=== PATIENT | female | born 1950 | race Caucasian/White ===

== ENCOUNTER → 2017-11-08 08:28 | Outpatient (CLI) | payer MEDICARE, OTHER, SELFPAY ==
[2017-11-08 10:05] LABS: Hematocrit 40.7 % (37-47); Hemoglobin 13.4 g/dl (12.0-15.0); Mean Corp Hgb Conc 32.9 g/gl (32-36); Mean Corpuscular Hgb 30.9 pg (27.0-32.0); Mean Platelet Vol. 9.7 fl (6.2-12.0); Platelet Count 269 K/mm3 (150-450); RBC Distribution Width CV 13.7 % (11.6-14.6); RBC Distribution Width SD 44.9 fl (35.1-43.9); Red Blood Count 4.33 M/mm3 (4.2-5.4); White Blood Count 7.3 K/mm3 (4.4-11.0)
[2017-11-08 10:27] LABS: Microalbumin,Random Urine 10.5 mg/L (NO RANGE EST.); Microalbumin:Creatinine Ratio 6.3 mg/g CRE (<30 mg/g CRE)
[2017-11-08 10:28] LABS: Scan Indicated on CBC? Y/N NO
[2017-11-08 10:34] LABS: ALB/GLOB Ratio 1.3 RATIO (0.9-2.4); AST(SGOT) 27 U/L (15-37); Alanine Aminotransfer ALT/SGPT 40 U/L (13-56); Albumin, Serum 3.9 g/dL (3.2-5.0); Alkaline Phosphatase 82 U/L (45-117); Anion Gap 8 (5-15); BUN 29 mg/dL (7-18); BUN/Creat Ratio 15.8 RATIO (10-20); Calcium,Total 9.3 mg/dL (8.5-10.1); Chloride 99 mmol/L (98-107); Cholesterol 206 mg/dL (200); Creatinine, Serum 1.84 mg/dL (0.55-1.02); EST Glomerular Filtration Rate 29 mL/min (>60); Est Glom Filt Rate - Afr Amer 35 mL/min (>60); Glucose 165 mg/dL (74-106); High Density Lipoprotein 44 mg/dL; Magnesium 2.3 mg/dL (1.6-2.6); Phosphorus 4.4 mg/dL (2.5-4.9); Protein, Total 6.9 g/dL (6.4-8.2); Sodium Level 138 mmol/L (136-145); Triglycerides 267 mg/dL; Uric Acid 7.2 mg/dL (2.6-6.0); Very Low Density Lipoprotein 53 mg/dL (5-40)
[2017-11-08 10:36] LABS: Hemoglobin A1c 7.1 % (4.2-6.3)
[2017-11-09 10:34] LABS: PTHIN 58.1 pg/mL (18.4-80.1)
[2017-11-09 10:39] LABS: Vitamin D,25 Hydroxy 39.2 ng/mL (19.95-100.01)
== END ==
PROVIDERS: Family Provider Family Medicine; PCP Family Medicine; Visit Provider Internal Medicine Nephrology
DX: E11.22 Type 2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with diabetic chronic kidney disease (principal); N18.3 Chronic kidney disease, stage 3 (moderate); E55.9 Vitamin D deficiency, unspecified; M10.9 Gout, unspecified; Z13.0 Encounter for screening for diseases of the blood and blood-forming organs and certain disorders involving the immune mechanism
CPT/HCPCS: 36415; 80053; 80061; 82043; 82306; 82570; 83036; 83735; 83970; 84100; 84550; 85027

== ENCOUNTER → 2018-01-19 07:02 | Outpatient (CLI) | payer MEDICARE, OTHER, SELFPAY ==
--- NOTE | 2018-01-19 17:07 | STRESSREP ---
Stress Test Report Date: 01/19/2018 Procedure: Pharmacologic stress nuclear imaging study Indications: Shortness of breath/dyspnea on exertion Consent: Per the patient Procedure: The patient underwent pharmacologic (Regadenoson) evaluation with a peak heart rate of 91 beats per minute (59 predicted maximal heart rate) and a peak blood pressure of 130/78 mmHg. The baseline ECG demonstrated normal sinus rhythm. The peak pharmacologic ECG demonstrated no obvious ECG changes. There were no cardiac dysrhythmias pretest, during pharmacologic infusion, or recovery. There was no complaint of chest discomfort during pharmacologic infusion or recovery. The examination was discontinued secondary to completion of protocol. Impression: 1. Pharmacologic (Regadenoson) evaluation 2. Peak pharmacologic ECG with no obvious ECG changes. 3. There were no cardiac dysrhythmias pretest, during pharmacologic infusion, or recovery 4. Nuclear images pending Myocardial perfusion imaging study: Technique: The patient was injected with 14.8 millicuries of technetium 99m Cardiolite and subsequently rest SPECT Cardiolite nuclear imaging was obtained in the horizontal long, vertical long, and short axis views. The patient underwent pharmacologic (Regadenoson) evaluation with a peak heart rate of 91 beats per minute (59 % percent predicted maximal heart rate) and a peak blood pressure of 130/78 mmHg. The patient was injected with 44.3 millicuries of technetium 99m Cardiolite and subsequently stress SPECT Cardiolite nuclear imaging was obtained in the horizontal long, vertical long, and short axis views. A gated Cardiolite study at peak stress was obtained. Interpretation: Rest and stress SPECT Cardiolite nuclear imaging status post realignment, normalization, and attenuation correction demonstrate an area of diminished myocardial perfusion/tracer uptake in portions of the mid anterior, basal to mid lateral, and lateral apical segments which appears to be somewhat more prominent following stress as opposed to rest. There is end systolic thickening and brightening. The gated Cardiolite study demonstrates myocardial thickening and inward wall motion. The reported LVEF is 83 %. Impression: 1. And stress SPECT current nuclear imaging demonstrate myocardial perfusion changes appearing compatible with an area of previous myocardial injury/infarction involving portions of the mid anterior, basal to mid lateral, and lateral apical segments with post stress myocardial perfusion changes appearing compatible with mansoor-infarct related myocardial ischemia. Of note, contribution from soft tissue attenuation/artifact cannot necessarily be excluded. 2. The gated Cardiolite study reports an LVEF of 83 %. This note was generated with Grand Perfect[employer] software. It may contain incorrect words, spelling, and punctuation that were not noted in checking the note before signing.
--- NOTE | 2018-01-19 17:13 | STRESSREP_ITS ---
Stress Test Report Date: 01/19/2018 Procedure: Pharmacologic stress nuclear imaging study Indications: Shortness of breath/dyspnea on exertion Consent: Per the patient Procedure: The patient underwent pharmacologic (Regadenoson) evaluation with a peak heart rate of 91 beats per minute (59 predicted maximal heart rate) and a peak blood pressure of 130/78 mmHg. The baseline ECG demonstrated normal sinus rhythm. The peak pharmacologic ECG demonstrated no obvious ECG changes. There were no cardiac dysrhythmias pretest, during pharmacologic infusion, or recovery. There was no complaint of chest discomfort during pharmacologic infusion or recovery. The examination was discontinued secondary to completion of protocol. Impression: 1. Pharmacologic (Regadenoson) evaluation 2. Peak pharmacologic ECG with no obvious ECG changes. 3. There were no cardiac dysrhythmias pretest, during pharmacologic infusion, or recovery 4. Nuclear images pending Myocardial perfusion imaging study: Technique: The patient was injected with 14.8 millicuries of technetium 99m Cardiolite and subsequently rest SPECT Cardiolite nuclear imaging was obtained in the horizontal long, vertical long, and short axis views. The patient underwent pharmacologic (Regadenoson) evaluation with a peak heart rate of 91 beats per minute (59 % percent predicted maximal heart rate) and a peak blood pressure of 130/78 mmHg. The patient was injected with 44.3 millicuries of technetium 99m Cardiolite and subsequently stress SPECT Cardiolite nuclear imaging was obtained in the horizontal long, vertical long, and short axis views. A gated Cardiolite study at peak stress was obtained. Interpretation: Rest and stress SPECT Cardiolite nuclear imaging status post realignment, normalization, and attenuation correction demonstrate an area of diminished myocardial perfusion/tracer uptake in portions of the mid anterior, basal to mid lateral, and lateral apical segments which appears to be somewhat more prominent following stress as opposed to rest. There is end systolic thickening and brightening. The gated Cardiolite study demonstrates myocardial thickening and inward wall motion. The reported LVEF is 83 %. Impression: 1. And stress SPECT current nuclear imaging demonstrate myocardial perfusion changes appearing compatible with an area of previous myocardial injury/ infarction involving portions of the mid anterior, basal to mid lateral, and lateral apical segments with post stress myocardial perfusion changes appearing compatible with mansoor-infarct related myocardial ischemia. Of note, contribution from soft tissue attenuation/artifact cannot necessarily be excluded. 2. The gated Cardiolite study reports an LVEF of 83 %. This note was generated with [employer]Baseation software. It may contain incorrect words, spelling, and punctuation that were not noted in checking the note before signing.
== END ==
PROVIDERS: Family Provider Family Medicine; PCP Family Medicine; Visit Provider Family Medicine
DX: R06.09 Other forms of dyspnea (principal); I10 Essential (primary) hypertension
CPT/HCPCS: 78452; 93017; A9500; A4216; J2785

== ENCOUNTER → 2018-03-14 14:21 | Outpatient (CLI) | payer MEDICARE, OTHER, SELFPAY ==
--- NOTE | 2018-03-14 14:24 | VDLE_ITS ---
Reason For Study: pain RIGHT LEFT GSV is normal. CFV is compressible, spontaneous, phasic, CFV is compressible, spontaneous, phasic, competent, and demonstrates normal competent and demonstrates normal augmentation. augmentation. FV is compressible, spontaneous, phasic, competent and demonstrates normal augmentation. POP V is compressible, spontaneous, phasic, competent and demonstrates normal augmentation. T/P Trunk is compressible. PTV is compressible. RT PerV is compressible. Procedure Exam performed in department. The exam was diagnostic. A preliminary report was called and/or faxed to Dr. Almanza. Interpretation Summary Deep veins of the right lower extremity are patent and compressible segmentally. There is no evidence of right lower extremity deep vein thrombosis. Valvular competence appears intact within the proximal deep venous system on the right . The right greater saphenous vein appears patent and compressible segmentally. Ordering Physician: Sachin Almanza Performed By: Chaim Bacon RVJanice
== END ==
PROVIDERS: Family Provider Family Medicine; PCP Family Medicine; Visit Provider Family Medicine
DX: M79.604 Pain in right leg (principal); I83.91 Asymptomatic varicose veins of right lower extremity; M17.11 Unilateral primary osteoarthritis, right knee
CPT/HCPCS: 93971; 97113

== ENCOUNTER 2018-03-23 10:30 | Outpatient (RCR) | payer MEDICARE, OTHER, SELFPAY ==
--- NOTE | 2018-02-17 09:55 | HP.PTEVAL_ITS ---
Patient's Visit Information JACEK LOPEZ is a 67 year old F referred to Physical Therapy by Kevon Moon with a diagnosis of R knee pain. Date of Evaluation: 02/17/18 Physical Therapist: Ervin Zamora DPT, OC - Visit Plan Frequency: 2x /Week Duration: 4-6 Weeks Plan: 2x/week for 4-6 for AT... Quad and SH adn gastroc stretches. knee ROM. LE strength. Postural strength. all in pool and porgress to I with Natali Sneakers. - Subjective Subjective: R knee hurts. 2008 was cleaned out with similar symptoms. Had gel shots recently which has improved it. Was having bad pain down R knee and into lower leg. worse with walking in B Knees and LB. Getting up and down from chair is hard. Sleeping Ok since gel shots but was up at night prior. Last shot was a week ago. May need a knee replacement. Was 10/10 for two weeks prior to injections. Not employed. Housework is main activity and steps and laundry in basement causes more pain. Hard to walk on uneven gorund to mow. No exercises. Basic ADLs are getting done but needs to rest alot. Dressing and cooking OK, needs rest. Can stand now 30 minutes, walking is limited to much less than 30 minutes. Looks for benches at [facility] with grandkids. - Pain R knee Pain Intensity (Out of 10): 0 Pain Intensity Range: 0, 10 - Objective Uses cane R UE. Minor R antalgia. Walks I on firm flat surface with cane adn without is is lightly more painful but safe. steps are using L up due to pain, descends with R leading, needs rails. Hip and ankle aROM WFL, knee AROM 0-112 B with pulling andterior R knee at end range. quads and HS mod tight, gastroc min tight. reflexes 2/3 bi and tri. Sensation WNL to gross light touch in LE. Strength is 4- in R hip and L hip. R knee 3+ knee ext adn 4- L, flexion is 4 - B with some pain R. Ankle strength 4-/5. Tender to touch R medial knee joint line adn with patellar grind. 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 Goal Time Frame: 4-6 Weeks Goal 3:: Patient walk and stand for 45 minutes without increased pain to play with grandchildren. Goal Time Frame: 4-6 Weeks - Rehabilitation Potential Physical Therapy Diagnosis: R knee pain from degeneration. Appropriate for pool therapy and progress to shelter I. Rehabilitation Potential: Fair - Anticipated Interventions Patient/Client Instruction: Educate patient on: Condition, Plan of Care For the Purpose of:: To decrease pain, To increase tolerance to activity/ condition/position Therapeutic Exercise to Include: Strength training, Flexibilty training, In an aquatic setting, Active ROM For the Purpose of:: To decrease pain, To increase ROM, To improve nutrient delivery to tissue, To improve muscle performance and motor function, To improve ability of physical actions for home/community/work/leisure Thank you for the opportunity to evaluate your patient. For Medicare and Medicare HMO plans, please review the plan of care and approve it. It will need to be FAXED BACK to us at [phone] for Medicare purposes. Please let me know if there are questions or concerns regarding this plan of care. Physician Signature: Date:
--- NOTE | 2018-03-23 10:53 | HP.PTDCSUM_ITS ---
HP - PT D/C Summary It has been my pleasure to treat JACEK LOPEZ under orders from Kevon Moon, for the diagnosis of R knee pain for a total of 6 visit(s). Discharge Date: 03/23/18 Please see the following information for a summary of their discharge status. - Subjective Subjective: Improved, Don't have the terrible pain in knee and down leg. Still has R knee pain. LBP still painful R side. Forgot cane today. No f/u scheduled with doctor. Wants to stop therapy - Pain R knee Pain Intensity (Out of 10): 0 Lumbar Spine Pain Intensity (Out of 10): 8 - Overall Improvement % Improvement: 80 - Objective Objective/Function: 122 L knee ROM 118 R. Walks I without assist, no antalgia this am. strength R knee flex adn ext 4+/5 without pain this morning. OVERALL DOING WONDERFUL. I AM SKEPTICAL THAT SHE WILL MAINTAIN IMPROVEMENTS WITHOUT CONTINUING IN THE WATER BUT SHE WISHES TO BE D/C AND MOVE ON WITH LIFE. 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 Goal Progress: Progressing Goal 3:: Patient walk and stand for 45 minutes without increased pain to play with grandchildren. Goal Progress: minutes only - Plan Plan: D/C AT PATIENT REQUEST. - D/C Information Discharge Comments: dOING WELL AND RECOMMENEDED CONTINUING IN POOL I. pATIENT WANTS TO TRY TO GET BACK TO LIFE WIHTOUT EX IN POOL AND WILL LET DOCTOR KNOW IF PAIN RETURNS AGAIN. If there are questions or concerns regarding this patient's physical therapy, please feel free to call me at [phone]. Thank you for the referral of this patient. Sincerely, Ervin Zamora, DPT, OC
== END 2018-03-23 12:24 | disposition home or self-care (01) ==
LOC: PT 10:30
PROVIDERS: Family Provider Family Medicine; PCP Family Medicine; Visit Provider Orthopaedic Surgery
DX: M17.11 Unilateral primary osteoarthritis, right knee (principal)
CPT/HCPCS: 97113; 97162; 97530

== ENCOUNTER → 2018-03-24 10:44 | Outpatient (CLI) | payer MEDICARE, OTHER, SELFPAY ==
--- NOTE | 2018-03-24 10:46 | ECHOCS_ITS ---
Reason For Study: Dyspnea/SOB Procedure This was a 2D Doppler, Color Flow transthoracic echocardiogram. The exam was of poor technical quality due to body habitus. The study was technically difficult. Contrast injection was performed. Exam performed in department. Left Ventricle Normal LV size. Left ventricular systolic function is normal. The estimated ejection fraction is 65 %. Diastolic function: considered indeterminate. No regional wall motion abnormalities noted. Right Ventricle Normal RV size. Normal systolic function. Atria The left atrium is mildly enlarged. Normal right atrium. No doppler evidence for ASD. Mitral Valve There is no mitral annular calcification. Normal mitral valve. Trivial mitral valve insufficiency. Tricuspid Valve Normal tricuspid valve. Trivial tricuspid valve insufficiency. Right ventricular systolic pressure estimated to be 34 mmHg. Aortic Valve Trisinus/trileaflet aortic valve. Mild focal aortic valve thickening. Pulmonic Valve The pulmonic valve is not well visualized. Great Vessels Normal sized aortic root. Pericardium/Pleural No pericardial effusion. Medication 22 gauge I.V. with prn adaptor inserted into right arm. Diluted definity 2ml given slow IV push to enhance endocardial definition. MMode/2D Measurements & Calculations LVIDd: 5.0 cm IVSd: 1.3 cm LVOT diam: 2.0 cm LVIDs: 3.1 cm LVPWd: 0.80 cm LVOT area: 3.0 cm2 FS: 37.1 % Ao root diam: 3.3 cm LAV(MOD-bp): 51.3 ml LA A4 area: 19.4 cm2 LA dimension: 3.0 cm LAV(MOD-bp) Indexed: 22.4 ml/m2 LAV(MOD-sp2): 43.7 ml LAV(MOD-sp4): 47.4 ml RA A4 area: 12.4 cm2 Time Measurements MV dec time: 0.22 sec Doppler Measurements & Calculations MV E max grant: 103.4 cm/sec Lat Peak E' Grant: 11.9 cm/sec Med Peak E' Grant: 9.4 cm/sec MV A max grant: 102.3 cm/sec E/E' lat: 8.7 E/E' med: 11.0 MV E/A: 1.0 MV V2 max: 110.7 cm/sec MV P1/2t max grant: 110.7 cm/sec Ao V2 max: 146.2 cm/sec MV max P.9 mmHg MV P1/2t: 77.3 msec Ao max P.6 mmHg MV V2 mean: 71.7 cm/sec MV dec slope: 419.8 cm/sec2 Ao V2 mean: 100.0 cm/sec MV mean P.3 mmHg MVA(P1/2t): 2.8 cm2 Ao mean P.4 mmHg MV V2 VTI: 34.1 cm Ao V2 VTI: 29.5 cm MVA(VTI): 1.8 cm2 LAURO(I,D): 2.1 cm2 LAURO(V,D): 2.0 cm2 LV V1 max: 96.6 cm/sec SV(LVOT): 62.3 ml PA V2 max: 96.3 cm/sec LV V1 max P.7 mmHg LV V1 mean P.8 mmHg LV V1 mean: 63.2 cm/sec LV V1 VTI: 20.6 cm TR max grant: 276.1 cm/sec TR max P.5 mmHg Interpretation Summary The study was technically difficult. Contrast injection was performed. Left ventricular systolic function is normal. The estimated ejection fraction is 65 %. The left atrium is mildly enlarged. Trivial mitral valve insufficiency. Trivial tricuspid valve insufficiency. Mild focal aortic valve thickening. Right ventricular systolic pressure estimated to be 34 mmHg. Diastolic function: considered indeterminate. Ordering Physician: Franklyn Winter Referring Physician: Franklyn Winter Performed By: Angel Moreno RCS
== END ==
PROVIDERS: Family Provider Family Medicine; PCP Family Medicine; Visit Provider Internal Medicine Cardiovascular Disease
DX: R06.00 Dyspnea, unspecified (principal); R06.02 Shortness of breath
CPT/HCPCS: 93306; Q9957; A4216; C8929

== ENCOUNTER 2018-03-28 06:45 | Day surgery (SDC) | payer MEDICARE, OTHER, SELFPAY ==
--- NOTE | 2018-03-16 15:00 | RAD_ITS ---
STUDY: X-RAY CHEST REASON FOR EXAM: Female, 67 years old. Increased shortness of breath, rapid heart rate TECHNIQUE: PA and lateral views of the chest. COMPARISON: None. FINDINGS: Small calcified granulomas are seen at the left lung base. The lungs are otherwise clear. There is no demonstrated pleural abnormality. Normal size heart. Normal mediastinum and meg. Normal visualized pulmonary arteries. There is atherosclerotic calcification of the aortic arch with tortuosity. There are diffuse degenerative changes of the visualized thoracic spine. There is degenerative osteoarthritis of the bilateral shoulders. There is no demonstrated abnormality of the visualized soft tissue structures of the upper abdomen. RAD/Chest PA and Lateral IMPRESSION: Degenerative changes, as described above. No demonstrated acute cardiopulmonary process. Old granulomatous disease. Electronically Signed: Jose Pritchett DO at 8:54 EDT Tel , Service support ,
[2018-03-16 17:12] LABS: Absolute Lymphocyte Count 2.47 X10^3/ul (0.83-4.51); Absolute Neutrophil Count 6.6 X10^3/uL (2.0-7.7); Basophil# 0.05 X10^3/uL; Basophil% 0.5 % (0-1); Eosinophil# 0.28 X10^3/uL; Eosinophils% 2.7 % (0-5); Hematocrit 41.1 % (37-47); Hemoglobin 13.3 g/dl (12.0-15.0); Lymphocyte # 2.47 X10^3/ul (4.0); Lymphocyte % 24.2 % (19-41); Mean Corp Hgb Conc 32.4 g/gl (32-36); Mean Corpuscular Hgb 30.3 pg (27.0-32.0); Mean Corpuscular Volume 93.6 fL (81-99); Mean Platelet Vol. 9.6 fl (6.2-12.0); Monocyte# 0.78 X10^3/uL; Monocyte% 7.6 % (0-10); Neutrophil # 6.62 X10^3/uL (2.7-7.7); Neutrophil % 64.9 % (47-70); Platelet Count 281 K/mm3 (150-450); RBC Distribution Width CV 13.9 % (11.6-14.6); RBC Distribution Width SD 47.6 fl (35.1-43.9); Red Blood Count 4.39 M/mm3 (4.2-5.4); White Blood Count 10.2 K/mm3 (4.4-11.0)
[2018-03-16 17:13] LABS: POSITIVE COUNT NO; POSITIVE DIFFERENTIAL NO; POSITIVE MORPHOLOGY NO
[2018-03-16 17:18] LABS: Partial Thromboplast Time 29.9 Seconds (24.1-36.2); Prothrombin Time (Protime)PT. 13.1 SECONDS (11.7-14.9)
[2018-03-16 17:28] LABS: Anion Gap 10 (5-15); BUN 31 mg/dL (7-18); BUN/Creat Ratio 20.4 RATIO (10-20); Calcium,Total 9.2 mg/dL (8.5-10.1); Chloride 104 mmol/L (98-107); Creatinine, Serum 1.52 mg/dL (0.55-1.02); EST Glomerular Filtration Rate 36 mL/min (>60); Est Glom Filt Rate - Afr Amer 44 mL/min (>60); Glucose 83 mg/dL (74-106); Sodium Level 138 mmol/L (136-145)
[2018-03-27 08:32] VITALS: BMI 55.6
[2018-03-28] VITALS (24 sets, daily range): BP systolic 93–144; BP diastolic 41–102; PULSE 62–75; RESP 12–20; TEMP 36.4–37.1; O2SAT 93–99; BMI 55.4; BMI 56.3
--- NOTE | 2018-03-28 10:00 | EKG12_ITS ---
Test Reason : PRE-CATH Blood Pressure : / mmHG Vent. Rate : 074 BPM Atrial Rate : 074 BPM P-R Int : 138 ms QRS Dur : 070 ms QT Int : 408 ms P-R-T Axes : 025 041 049 degrees QTc Int : 452 ms Normal sinus rhythm Normal ECG Confirmed by MILENA FINLEY, FRANKLYN ([id number]), medical transcription editor GENNA GALLO ([id number]) on 03/30/2018 2:24:28 PM Referred By: Franklyn Abbott Confirmed By:FRANKLYN ABBOTT MD
[2018-03-28] MEDS: 0.9% Normal Saline 1,000 ML 100 ML IV (10:44)
--- NOTE | 2018-03-28 11:21 | CL.D_ITS ---
Patient Name: JACEK LOPEZ Study Date: 03/28/2018 Performing: Franklyn Winter MD Ht: 62.59 inches 159 cm : 1950 Wt: 308.65 lbs 140 kg Age: 67 Gender: female BSA: 2.31 PROCEDURE(S) PERFORMED [id number], CORONARY OR GRAFT, INITIAL VESSEL [id number] W OR WO PTCA, SINGLE CORONARY ARTERY CLINICAL PROFILE AND INDICATIONS Indications: Suspected CAD Heart Failure: None Stress/Imaging Stress Test w/SPECT MPI: Yes Result: Positive High RiskStress Test with SPECT MPI: Positive High Risk Angina Classification Anginal Classification w/in 2 Weeks: CCS III CAD Presentations: Other: Shortness of Breath / Dyspnea CONCLUSIONS [place] Multivessel CAD (predominantly LAD) Elevated Left Ventricular End Diastolic Pressure RECOMMENDATIONS Risk factor modification Medical therapy Referred for immediate PCI DESCRIPTION OF PROCEDURE The patient arrived to the procedure lab. The risks and benefits of the procedure as well as a full d escription of our services here and current unavailability of surgical backup were fully explained to the patient and/or their significant other prior to the catheterization. The Timeout was completed, verifying the correct patient and procedure. The patient's procedural site was prepped and draped in the usual fashion. Local anesthetic was given subcutaneously to right radial region with Lidocaine 2% . Using a modified Seldinger technique, arterial access was obtained via the right radial artery, a 6 Fr sheath was inserted. Right Coronary Artery selective angiography was then performed in multiple v iews using a 5 Fr. 4.0 Austin catheter. Left Coronary Artery selective angiography was performed in mu ltiple views using a 5 Fr. 4.0 Austin catheter.The arterial sheath was pulled and a TR Band was applie d for hemostasis w/ 18ml air CORONARY ANGIOGRAPHY DOMINANCE: Right Dominant LEFT HEART ASSESSMENT Left Ventricular Ejection Fraction: Not assessed Elevated Left Ventricular End Diastolic Pressure LVEDP: 27 mmHg LEFT MAIN: Mild luminal irregularities LEFT ANTERIOR DECENDING ARTERY: PROX LAD: Concentric: Hazy: 75 % Stenosis MID LAD: Mild luminal irregularities CIRCUMFLEX ARTERY: OM 1: Mid - Mild luminal irregularities RIGHT CORONARY ARTERY: Mild luminal irregularities COMPLICATIONS No Complications PROCEDURE MEDICATIONS Fentanyl 50 mcg IV Versed 1 mg IV Fentanyl 25 mcg IV Fentanyl 25 mcg IV Versed 1 mg IV Oxygen: 2 L/min via nasal cannula Heparin diluted in 23cc Heparinized saline. Patient given 10cc IA of this solution. 03/28/2018 08:52: 01 Heparin 10,000 unit(s) IV 03/28/2018 09:23:07 Heparin 4000 unit(s) IV 03/28/2018 09:30:52 Plavix 300 mg PO 03/28/2018 09:58:58 Verapamil 2.5mg, Ntg 100mcgs, 2000 units of Heparin diluted in 23cc Heparinized saline. Patient give n 10cc IA of this solution. 03/28/2018 08:52:01 IV Bolus: .9 NaCl 500 ml total 03/28/2018 08:47:16 SUMMARY OF HEMODYNAMIC DATA Time AIR REST ECG 07:08:00 AO 101/61 (73) SA 08:52:40 LV 120/17, 27 09:03:37 LV 117/15, 24 09:03:43 LVp 122/9, 25 09:03:52 AOp 118/64 (85) 09:03:57 AO 134/64 (86) 09:05:37 Signed By Franklyn Winter MD On 03/28/2018 11:20:46 Franklyn Winter MD
[2018-03-28 12:07] LABS: M R Staph aureus DNA By PCR Negative (Negative); Probe Check PASS; Specimen Processing Control PASS
[2018-03-28 12:15] LABS: Bedside Glucose 85 mg/dL (70-110)
[2018-03-28 12:31] LABS: ACT Activated Clotting Time 235 sec (74-137)
[2018-03-28 12:31] LABS: ACT Activated Clotting Time 191 sec (74-137)
--- NOTE | 2018-03-28 12:52 | CRPHASE1 ---
Patient Data/Charges Phase II Referral:: [facility] Start Phase II:: FOLLOWING OFFICE VISIT WITH COLD STORAGE SUPERVISOR Risk Factors/Lifestyle Smoking Status: Never smoker Hx Hypertension: Yes Hx Diabetes Mellitus Type 2: Yes Hx Metabolic Disorders: Yes Hx Dyslipidemia: Yes Hx Obesity: Yes Height: 5 ft 2 in - BMI 30.8 Weight:: 139.706 kg BMI: 56.3 Stress: Home/Family Risk Factor for Sedentary Lifestyle: Highest Risk Family History: Family History (Last Reviewed 03/16/18 @ 13:09 by Sherrie Goldsmith) Mother Hypertension Myocardial infarction CAD (coronary artery disease) Father Angina pectoris Past Cardiac Illness: Coronary Artery Disease, Myocardial Infarction Phase I Education Given On:: [place], Nutrition, Antiplatelet medication, Diabetes - Type II Issues Affecting Care:: None Knowledge of Condition:: Yes Learning Preferences: Verbal, Written Hospital Course Presenting Symptoms:: ABNORMAL STRESS Medical/Surgical History CO:: Yes - PREVIOUS CAD:: Yes Diabetes:: Yes Diabetes Type II:: Yes Hypertension:: Yes Dyslipidemia:: Yes GERD:: Yes Renal:: Yes - CHRONIC KIDNEY DISEASE Discharge/Home/Social Eval Discharge Disposition: Home
--- NOTE | 2018-03-28 13:01 | CRPH1.INSTRU ---
General Education CAD and cardiac anatomy and function:: Patient communicates acknowledgment Explanation of diagnoses and procedures:: Patient communicates acknowledgment Sign/Symptoms of MD:: Patient communicates acknowledgment Antiplatelet therapy: Patient communicates acknowledgment Proper use of NTG-SL: Patient communicates acknowledgment Emergency procedures and activation of EMS: Patient communicates acknowledgment Compliance of all prescribed medications: Patient communicates acknowledgment Smoking Patient Nicotine/Smoking Risk Factors Are:: Never smoked Dyslipidemia Patient Dyslipidemia Risk Factors Are:: Total Cholesterol, HDL, LDL Recommendations Include:: Lipid profile provided, Reviewed NCEP/ATP guidelines, Therapeutic Lifestyle Change dietary guidelines Dyslipidemia Response Code:: Patient communicates acknowledgment Overweight/Obesity Patient Overweight/Obesity Risk Factors Are:: Obesity - > or = 30 Recommendations Include:: Weight loss of 5-10%, Reduced calorie diet, Exercise 5-7 times/week Overweight/Obesity:: Patient communicates acknowledgment Hypertension Recommendations Include:: BP <130/80 if diabetic, DASH dietary guidelines, Decrease/maintain normal body weight, Moderation of ETOH Hypertension:: Patient communicates acknowledgment Heart Disease Patient Heart Disease Risk Factors Are:: Previous cardiac event Heart Disease Response Code:: Patient communicates acknowledgment Diabetes Patient Diabetes Risk Factors Are:: Elevated blood sugars Date of HgbA1c:: 11/08/ - 7.1 Recommendations Include:: Maintain fasting blood sugars 70-110 md/dL, Maintain HgbA1c of 6% or less, Monitor blood sugar as prescribed, Diabetic dietary guidelines, Decrease/maintain body weight Diabetes:: Patient communicates acknowledgment Metabolic Syndrome Patient Metabolic Syndrome Risk Factors Are [3 of 5]:: Fasting blood sugar > 100 mg/dL, Waist circumference > 35 [female] or 40 [male], High triglyceride >150, Hypertension, Low HDL <40 [male] or < 50 [female] Recommendations Include:: Reinforce compliance to risk factor modifications, Patient is diabetic, Encouraged follow-up with Primary Care Physician Metabolic Syndrome Response Code:: Patient communicates acknowledgment Sedentary Patient Sedentary Risk Factors Are:: Lack of regular exercise Recommendations Include:: Aerobic exercise 5-7 times/week for 20-30 minutes continuously, Benefits of regular exercise, Discussed home walking program, Monitored Outpatient Cardiac Rehab Sedentary Response Code:: Patient communicates acknowledgment Stress Recommendations Include:: Identification of stressors, and assessment of coping skills, Stress management techniques Stress Response Code:: Patient communicates acknowledgment
--- NOTE | 2018-03-28 14:10 | NURSING ---
1405-Final 2cc air removed from TR band, no bleeding observed so TR band removed. Began to cleanse skin to apply dressing and site began oozing w/ small hematoma formation, immediate manual pressure held and laboratory secretary called to come assist w/ reapplying TR band. Olivia Jackman from laboratory secretary re-applied TR band and reinserted 12cc air. DEANNA Ward at bedside at this time
--- NOTE | 2018-03-28 14:32 | SLEEP ---
Spoke with patient about her home cpap unit and use. She states she uses nightly as well as for naps in the daytime. She declines having it brought to hospital for stay. Agreeable to wear hospital unit however she is unsure of home settings. I contacted [facility] (her DME) and last prescribed setting is 7cm H20. Her last titration study was done at [facility] in 2007 however results currently unavailable. She does not follow a sleep specialist. Her PCP currently manages her settings. Communicated home cpap setting to CARRILLO Caceres.
[2018-03-28] MEDS: Acetaminophen 325 MG Tablet 650 MG PO ×2 (15:41→23:06)
[2018-03-28 16:10] LABS: Bedside Glucose 68 mg/dL (70-110)
--- NOTE | 2018-03-28 16:18 | CL.I_ITS ---
Patient Name: JACEK LOPEZ Study Date: 03/28/2018 Performing: Js Lozano MD Ht: 62.6 inches 159 cm : 1950 Wt: 308.65 lbs 140 kg Age: 67 Gender: female BSA: 2.31 PROCEDURE(S) PERFORMED [id number], CORONARY OR GRAFT, INITIAL VESSEL YE06-[id number] W OR WO PTCA, SINGLE CORONARY ARTERY CLINICAL PROFILE AND CO-MORBIDITIES Indications: Suspected CAD Heart Failure: None Stress/Imaging Stress Test w/SPECT MPI: Yes Result: Positive High Risk Stress Test with SPECT MPI : Positive High Risk Angina Classification Anginal Classification w/in 2 Weeks: CCS III CAD Presentations: Other: Shortness of Breath / Dyspnea CONCLUSIONS Successful ELFEGO Prox LAD using Resolute Integrity 3.0x12 mm, post-dilated using 3.5 mm balloon. Final IVUS showing excellent stent apposition Mid LAD IVUS showed 50% eccentric lesion RECOMMENDATIONS ASA Indefinitley Plavix for at least 12 months Follow up with Dr. Winter INTERVENTION INFORMATION LESION SITE: LAD (Proximal) Lesion Complexity: Non-High/Non-C Pre Stenosis: 80 % Pre intervention JOSH flow: 3 PROCEDURE: Drug Eluting Stent with post dilatation Post Stenosis: 0 % Post intervention JOSH flow: 3 Lesion Devices: Terumo .014 Runthrough Extra Floppy 180cm straight Cordis 6 Fr XB3.0 100cm Guide Catheter Medtronic Resolute RX ELFEGO 3.0x12 [place] Coronary IVUS Catheter Km Sci NC EMERGE MR 3.50x08 BALLOON LESION SITE: LAD (Mid) PROCEDURE: IVUS Lesion Devices: [place] Coronary IVUS Catheter COMPLICATIONS No Complications PROCEDURE MEDICATIONS Fentanyl 50 mcg IV Versed 1 mg IV Fentanyl 25 mcg IV Fentanyl 25 mcg IV Versed 1 mg IV Oxygen: 2 L/min via nasal cannula Heparin diluted in 23cc Heparinized saline. Patient given 10cc IA of this solution. 03/28/2018 08:52: 01 Heparin 10,000 unit(s) IV 03/28/2018 09:23:07 Heparin 4000 unit(s) IV 03/28/2018 09:30:52 Plavix 300 mg PO 03/28/2018 09:58:58 Verapamil 2.5mg, Ntg 100mcgs, 2000 units of Heparin diluted in 23cc Heparinized saline. Patient give n 10cc IA of this solution. 03/28/2018 08:52:01 IV Bolus: .9 NaCl 500 ml total 03/28/2018 08:47:16 SUMMARY OF HEMODYNAMIC DATA Time AIR REST ECG 07:08:00 AO 101/61 (73) SA 08:52:40 LV 120/17, 27 09:03:37 LV 117/15, 24 09:03:43 LVp 122/9, 25 09:03:52 AOp 118/64 (85) 09:03:57 AO 134/64 (86) 09:05:37 Signed By Js Lozano MD On 03/28/2018 16:18:19 Js Lozano MD
[2018-03-28 21:25] LABS: Bedside Glucose 122 mg/dL (70-110)
[2018-03-28] MEDS: Metoprolol Tartrate 25 MG Tablet PO (21:25)
[2018-03-28] MEDS: buPROPion (SR) 150 MG Tablet.SA PO (21:25)
[2018-03-29] VITALS (13 sets, daily range): BP systolic 92–119; BP diastolic 44–58; PULSE 57–72; RESP 12–20; TEMP 36.7–37.1; O2SAT 91–98
[2018-03-29 04:34] LABS: Hematocrit 36.2 % (37-47); Hemoglobin 11.9 g/dl (12.0-15.0); Mean Corp Hgb Conc 32.9 g/gl (32-36); Mean Corpuscular Hgb 31.6 pg (27.0-32.0); Mean Corpuscular Volume 96.3 fL (81-99); Mean Platelet Vol. 9.2 fl (6.2-12.0); Platelet Count 222 K/mm3 (150-450); RBC Distribution Width CV 14.2 % (11.6-14.6); RBC Distribution Width SD 48.2 fl (35.1-43.9); Red Blood Count 3.76 M/mm3 (4.2-5.4); White Blood Count 5.9 K/mm3 (4.4-11.0)
[2018-03-29 04:40] LABS: Scan Indicated on CBC? Y/N NO
[2018-03-29 04:46] LABS: Anion Gap 8 (5-15); BUN 24 mg/dL (7-18); BUN/Creat Ratio 16.8 RATIO (10-20); Calcium,Total 8.4 mg/dL (8.5-10.1); Chloride 108 mmol/L (98-107); Creatinine, Serum 1.43 mg/dL (0.55-1.02); EST Glomerular Filtration Rate 39 mL/min (>60); Est Glom Filt Rate - Afr Amer 47 mL/min (>60); Estimated Creatinine Clearance 29.78 ml/min; Glucose 93 mg/dL (74-106); Potassium 4.3 mmol/L (3.5-5.1); Sodium Level 142 mmol/L (136-145)
[2018-03-29 06:56] LABS: Bedside Glucose 110 mg/dL (70-110)
[2018-03-29] MEDS: Aspirin E.C. 81 MG Tablet PO (08:34)
[2018-03-29] MEDS: Allopurinol 100 MG Tablet 200 MG PO (08:35)
[2018-03-29] MEDS: Metoprolol Tartrate 25 MG Tablet PO (08:35)
[2018-03-29] MEDS: Furosemide 40 MG Tablet PO (08:35)
--- NOTE | 2018-03-29 08:35 | PCM.DC.CCA ---
Discharge Diet: Low fat/ Low Cholesterol Lifting Restrictions: 10 pounds and also avoid any pushing or pulling for 3 days after your test. Additional Activity Instructions:: You must have someone drive you home. Do not drive until instructed by your doctor. You must have someone stay with you all night after your test. Rest in bed or on the couch until the next morning. Limit the number of times you go up and down stairs the day of your test. Call your doctor if your incision/area has: Continuous Slow Oozing, Increased Pain/ Swelling, Increased Redness, Foul Smelling Discharge, Swelling at the incision site Call your doctor if you observe: Fever of 101 or Higher, Shortness of breath, Chest pain Remove Dressing in (days):: 1 Cleanse incision/area with: Soap & Water Additional Dressing/Incision Instructions:: Keep the dressing (bandage) on until the next morning. It is normal to have some tenderness and discomfort at the puncture site. Sometimes bruising also occurs. However, if pain, numbness, or coldness occurs below the puncture site (in your arms or fingers) call your doctor at once. You may have a small, marble sized knot at the puncture site. This is normal. Do not rub it. It will go away in 4-6 weeks. Bleeding can occur from the area where the puncture was done. Blood may spurt or drip from the site. If blood spurts, apply pressure right away to stop bleeding and call 911. Although rare, bleeding into the tissue (hematoma) can also occur. If this happens, a large, firm area goose egg under the skin will appear. If any of these occur, lie down as flat as you can and have someone apply firm pressure to the cath site with a gauze pad or a clean washcloth for 10-15 minutes. Call 911 or go to the Emergency Department. Additional Instructions: You will need to stay on Plavix for at least 12 months you will be referred to cardiac rehab Stop you Verapmil and start metoprolol 25 mg twice a day. I sent an Rx to [facility]. Allergies/Adverse Reactions: Allergies naproxen [From Naprosyn] Adverse Reaction (Severe, Verified 03/16/18 13:04) INTERNAL BLEEDING prednisone Adverse Reaction (Severe, Verified 03/16/18 13:04) COMBINATION WITH NAPROXEN CAUSED INTERNAL BLEEDING exenatide [From Byetta] Adverse Reaction (Intermediate, Verified 03/16/18 13:04) Unknown ezetimibe [From Zetia] Adverse Reaction (Intermediate, Verified 03/16/18 13:04) Unknown fluticasone [From Flonase] Adverse Reaction (Intermediate, Verified 03/16/18 13:04) Unknown amoxicillin [From Augmentin] Adverse Reaction (Unknown, Verified 03/16/18 13:04) Unknown clavulanic acid [From Augmentin] Adverse Reaction (Unknown, Verified 03/16/18 13:04) Unknown clorazepate dipotassium [From Tranxene T-Tab] Adverse Reaction (Unknown, Verified 03/16/18 13:04) Unknown indomethacin [From Indocin] Adverse Reaction (Unknown, Verified 03/16/18 13:04) Unknown ketoprofen [From Oruvail] Adverse Reaction (Unknown, Verified 03/16/18 13:04) Unknown nizatidine [From Axid] Adverse Reaction (Unknown, Verified 03/16/18 13:04) Unknown ranitidine [From Zantac] Adverse Reaction (Unknown, Verified 03/16/18 13:04) Unknown rosuvastatin [From Crestor] Adverse Reaction (Unknown, Verified 03/16/18 13:04) Unknown sertraline [From Zoloft] Adverse Reaction (Unknown, Verified 03/16/18 13:04) Unknown sulfamethoxazole [From Septra] Adverse Reaction (Unknown, Verified 03/16/18 13:04) Unknown trimethoprim [From Septra] Adverse Reaction (Unknown, Verified 03/16/18 13:04) Unknown naldecon Adverse Reaction (Unknown, Uncoded 03/16/18 13:04) Unknown Medications to take at Discharge Furosemide [Lasix] 40 mg PO DAILY 12/22/14 Lisinopril [Zestril] 20 mg PO DAILY 12/22/14 Omeprazole [Prilosec] 20 mg PO DAILY 12/22/14 buPROPion SR [Wellbutrin SR (150mg tablets)] 150 mg PO QHS 12/22/14 Multivitamins,Therapeutic [Multivitamin] 1 tab PO DAILY 07/15/15 allopurinol 100 mg tablet 200 mg PO DAILYCM tab 03/15/18 citalopram 20 mg tablet 20 mg PO QDAY tab 06/27/18 dulaglutide 1.5 mg/0.5 mL subcutaneous pen injector 0.5 mg SC QWEEK ml 03/15/18 omega-3 fatty acids 1,000 mg capsule 1,000 mg PO QDAY 03/15/18 repaglinide 1 mg tablet 1 mg PO QDAY tab 03/15/18 aspirin 81 mg chewable tablet 81 mg PO QDAY #30 tab 03/16/18 clopidogrel 75 mg tablet 75 mg PO QDAY #30 tab 03/16/18 Aspirin E.C. [Ecotrin] 81 mg PO DAILY@0800 tablet 03/29/18 Clopidogrel Bisulfate [Plavix] 75 mg PO DAILY tablet 03/29/18 Metoprolol Tartrate [Lopressor (beta geovanna)] 25 mg PO BID tablet 03/29/18 Primary Care Physician: Sachin Almanza DO [Primary Care Provider] - Test Results: Test results from this visit will be discussed in further detail at your follow-up appointment, if applicable. Please Follow Up With: Art Acevedo NP-C When: 04/11 at 0930 Cardiac Rehabilitation Info Cardiac Rehabilitation Program Information: Cardiac Rehabilitation is important for patients like you who are recovering from a heart problem. Cardiac rehabilitation programs are recognized as integral to the continued care of the patient with coronary heart disease. The cardiac rehabilitation program is designed to optimize a patient's physical, psychological, and social functioning. Health customer care team coach work in cardiac rehabilitation programs and assist you with getting the treatments you need to get stronger and healthier - like exercise, healthy eating habits, and medications. Cardiac rehabilitation has been show to help people with heart problems live longer and have better life enjoyment than people who do not go to cardiac rehabilitation. Please contact the Cardiac Rehabilitation Program at [facility] at in two weeks if you have not heard from them.
[2018-03-29] MEDS: Clopidogrel Bisulfate 75 MG Tablet PO (08:36)
--- NOTE | 2018-03-29 08:40 | DCINST_ITS ---
Discharge Diet: Low fat/ Low Cholesterol Lifting Restrictions: 10 pounds and also avoid any pushing or pulling for 3 days after your test. Additional Activity Instructions:: You must have someone drive you home. Do not drive until instructed by your doctor. You must have someone stay with you all night after your test. Rest in bed or on the couch until the next morning. Limit the number of times you go up and down stairs the day of your test. Call your doctor if your incision/area has: Continuous Slow Oozing, Increased Pain/ Swelling, Increased Redness, Foul Smelling Discharge, Swelling at the incision site Call your doctor if you observe: Fever of 101 or Higher, Shortness of breath, Chest pain Remove Dressing in (days):: 1 Cleanse incision/area with: Soap & Water Additional Dressing/Incision Instructions:: Keep the dressing (bandage) on until the next morning. It is normal to have some tenderness and discomfort at the puncture site. Sometimes bruising also occurs. However, if pain, numbness, or coldness occurs below the puncture site (in your arms or fingers) call your doctor at once. You may have a small, marble sized knot at the puncture site. This is normal. Do not rub it. It will go away in 4-6 weeks. Bleeding can occur from the area where the puncture was done. Blood may spurt or drip from the site. If blood spurts, apply pressure right away to stop bleeding and call 911. Although rare, bleeding into the tissue (hematoma) can also occur. If this happens, a large, firm area goose egg under the skin will appear. If any of these occur, lie down as flat as you can and have someone apply firm pressure to the cath site with a gauze pad or a clean washcloth for 10-15 minutes. Call 911 or go to the Emergency Department. Additional Instructions: You will need to stay on Plavix for at least 12 months you will be referred to cardiac rehab Stop you Verapmil and start metoprolol 25 mg twice a day. [facility] Rx [facility]. Allergies/Adverse Reactions: Allergies naproxen [From Naprosyn] Adverse Reaction (Severe, Verified 03/16/18 13:04) INTERNAL BLEEDING prednisone Adverse Reaction (Severe, Verified 03/16/18 13:04) COMBINATION WITH NAPROXEN CAUSED INTERNAL BLEEDING exenatide [From Byetta] Adverse Reaction (Intermediate, Verified 03/16/18 13:04) Unknown ezetimibe [From Zetia] Adverse Reaction (Intermediate, Verified 03/16/18 13:04) Unknown fluticasone [From Flonase] Adverse Reaction (Intermediate, Verified 03/16/18 13: 04) Unknown amoxicillin [From Augmentin] Adverse Reaction (Unknown, Verified 03/16/18 13:04) Unknown clavulanic acid [From Augmentin] Adverse Reaction (Unknown, Verified 03/16/18 13 :04) Unknown clorazepate dipotassium [From Tranxene T-Tab] Adverse Reaction (Unknown, Verified 03/16/18 13:04) Unknown indomethacin [From Indocin] Adverse Reaction (Unknown, Verified 03/16/18 13:04) Unknown ketoprofen [From Oruvail] Adverse Reaction (Unknown, Verified 03/16/18 13:04) Unknown nizatidine [From Axid] Adverse Reaction (Unknown, Verified 03/16/18 13:04) Unknown ranitidine [From Zantac] Adverse Reaction (Unknown, Verified 03/16/18 13:04) Unknown rosuvastatin [From Crestor] Adverse Reaction (Unknown, Verified 03/16/18 13:04) Unknown sertraline [From Zoloft] Adverse Reaction (Unknown, Verified 03/16/18 13:04) Unknown sulfamethoxazole [From Septra] Adverse Reaction (Unknown, Verified 03/16/18 13: 04) Unknown trimethoprim [From Septra] Adverse Reaction (Unknown, Verified 03/16/18 13:04) Unknown naldecon Adverse Reaction (Unknown, Uncoded 03/16/18 13:04) Unknown Medications to take at Discharge Furosemide [Lasix] 40 mg PO DAILY 12/22/14 Lisinopril [Zestril] 20 mg PO DAILY 12/22/14 Omeprazole [Prilosec] 20 mg PO DAILY 12/22/14 buPROPion SR [Wellbutrin SR (150mg tablets)] 150 mg PO QHS 12/22/14 Multivitamins,Therapeutic [Multivitamin] 1 tab PO DAILY 07/15/15 allopurinol 100 mg tablet 200 mg PO DAILYCM tab 03/15/18 citalopram 20 mg tablet 20 mg PO QDAY tab 06/27/18 dulaglutide 1.5 mg/0.5 mL subcutaneous pen injector 0.5 mg SC QWEEK ml omega-3 fatty acids 1,000 mg capsule 1,000 mg PO QDAY 03/15/18 repaglinide 1 mg tablet 1 mg PO QDAY tab 03/15/18 aspirin 81 mg chewable tablet 81 mg PO QDAY #30 tab 03/16/18 clopidogrel 75 mg tablet 75 mg PO QDAY #30 tab 03/16/18 Aspirin E.C. [Ecotrin] 81 mg PO DAILY@0800 tablet 03/29/18 Clopidogrel Bisulfate [Plavix] 75 mg PO DAILY tablet 03/29/18 Metoprolol Tartrate [Lopressor (beta geovanna)] 25 mg PO BID tablet 03/29/18 Primary Care Physician: Sachin Almanza DO [Primary Care Provider] - Test Results: Test results from this visit will be discussed in further detail at your follow- up appointment, if applicable. Please Follow Up With: Art Acevedo NP-C When: 04/11 at 0930 Cardiac Rehabilitation Info Cardiac Rehabilitation Program Information: Cardiac Rehabilitation is important for patients like you who are recovering from a heart problem. Cardiac rehabilitation programs are recognized as integral to the continued care of the patient with coronary heart disease. The cardiac rehabilitation program is designed to optimize a patient's physical, psychological, and social functioning. Health care rep work in cardiac rehabilitation programs and assist you with getting the treatments you need to get stronger and healthier - like exercise, healthy eating habits, and medications. Cardiac rehabilitation has been show to help people with heart problems live longer and have better life enjoyment than people who do not go to cardiac rehabilitation. Please contact the Cardiac Rehabilitation Program at [facility] at in two weeks if you have not heard from them.
--- NOTE | 2018-03-29 10:00 | EKG12_ITS ---
Test Reason : AM EKG Blood Pressure : / mmHG Vent. Rate : 065 BPM Atrial Rate : 065 BPM P-R Int : 180 ms QRS Dur : 072 ms QT Int : 428 ms P-R-T Axes : 068 056 063 degrees QTc Int : 445 ms Normal sinus rhythm Normal ECG When compared with ECG of 28-MAR-2018 10:24, MANUAL COMPARISON REQUIRED, DATA IS UNCONFIRMED Confirmed by PREETI FINLEY, FRANKO ([id number]), video news editor GENNA GALOL ([id number]) on 04/03/2018 2:15:37 PM Referred By: Franklyn Winter Confirmed By:FRANKO ÁLVAREZ MD
--- NOTE | 2018-03-29 10:00 | EKG12_ITS ---
Test Reason : POST PCI Blood Pressure : / mmHG Vent. Rate : 064 BPM Atrial Rate : 064 BPM P-R Int : 176 ms QRS Dur : 070 ms QT Int : 438 ms P-R-T Axes : 054 033 037 degrees QTc Int : 451 ms Normal sinus rhythm Low voltage QRS Borderline ECG When compared with ECG of 28-MAR-2018 07:28, MANUAL COMPARISON REQUIRED, DATA IS UNCONFIRMED Confirmed by PREETI FINLEY, FRANKO ([id number]), video tape editor GENNA GALLO ([id number]) on 04/03/2018 2:16:32 PM Referred By: Franklyn Winter Confirmed By:FRANKO ÁLVAREZ MD
--- NOTE | 2018-03-29 10:31 | PCM.DC.SUM ---
Discharge Date and Diagnosis Date of Admission: 03/28/18 Date of Discharge: 03/29/18 - Primary Discharge Diagnosis CAD Status post LAD PCI - Secondary Discharge Diagnosis Chronic Problems (Last Reviewed 03/16/18 @ 13:09 by Sherrie Goldsmith) Presence of stent in coronary artery (Chronic ~03/28/18) PTCA/ELFEGO to the Atherosclerotic heart disease of [place] coronary artery without angina pectoris (Chronic) Type 2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(Chronic) Hypertension (Chronic) Diet-controlled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(Chronic) Hospital Course and Treatment Procedures: Cardiac catheterization - LAD PCI Summary of Care Provided: The patient is a 67 year old white female who has been undergoing outpatient cardiovascular evaluation for an abnormal stress nuclear imaging study with subsequent recommendations for further evaluation with diagnostic cardiac catheterization. This was performed on 03/28/2018. The patient was noted to have LAD disease and subsequently underwent LAD PCI/ELFEGO. The patient was monitored overnight without acute complication. The patient appeared symptomatically and hemodynamically stable and was felt able to be released home for continued outpatient cardiovascular follow-up. [] Discharge Diet: Low fat/ Low Cholesterol May resume sexual activity in: 1 week - if no groin problems occur. Additional Activity Instructions:: You must have someone drive you home. Do not drive until instructed by your doctor. You must have someone stay with you all night after your test. Rest in bed or on the couch until the next morning. Limit the number of times you go up and down stairs the day of your test. Call your doctor if your incision/area has: Continuous Slow Oozing, Increased Pain/ Swelling, Increased Redness, Foul Smelling Discharge, Swelling at the incision site Call your doctor if you observe: Fever of 101 or Higher, Shortness of breath, Chest pain Remove Dressing in (days):: 1 Cleanse incision/area with: Soap & Water Additional Dressing/Incision Instructions:: Keep the dressing (bandage) on until the next morning. It is normal to have some tenderness and discomfort at the puncture site. Sometimes bruising also occurs. However, if pain, numbness, or coldness occurs below the puncture site (in your arms or fingers) call your doctor at once. You may have a small, marble sized knot at the puncture site. This is normal. Do not rub it. It will go away in 4-6 weeks. Bleeding can occur from the area where the puncture was done. Blood may spurt or drip from the site. If blood spurts, apply pressure right away to stop bleeding and call 911. Although rare, bleeding into the tissue (hematoma) can also occur. If this happens, a large, firm area goose egg under the skin will appear. If any of these occur, lie down as flat as you can and have someone apply firm pressure to the cath site with a gauze pad or a clean washcloth for 10-15 minutes. Call 911 or go to the Emergency Department. Home Medications: Medications to take at Discharge Furosemide [Lasix] 40 mg PO DAILY 12/22/14 Lisinopril [Zestril] 20 mg PO DAILY 12/22/14 Omeprazole [Prilosec] 20 mg PO DAILY 12/22/14 buPROPion SR [Wellbutrin SR (150mg tablets)] 150 mg PO QHS 12/22/14 Multivitamins,Therapeutic [Multivitamin] 1 tab PO DAILY 07/15/15 allopurinol 100 mg tablet 200 mg PO DAILYCM tab 03/15/18 citalopram 20 mg tablet 20 mg PO QDAY tab 03/15/18 dulaglutide 1.5 mg/0.5 mL subcutaneous pen injector 0.5 mg SC QWEEK ml 03/15/18 omega-3 fatty acids 1,000 mg capsule 1,000 mg PO QDAY 03/15/18 repaglinide 1 mg tablet 1 mg PO QDAY tab 03/15/18 aspirin 81 mg chewable tablet 81 mg PO QDAY #30 tab 03/16/18 clopidogrel 75 mg tablet 75 mg PO QDAY #30 tab 03/16/18 Aspirin E.C. [Ecotrin] 81 mg PO DAILY@0800 tablet 03/29/18 Clopidogrel Bisulfate [Plavix] 75 mg PO DAILY tablet 03/29/18 metoprolol tartrate 25 mg tablet 25 mg PO BID #60 tab 03/29/18 Primary Care Physician: Sachin Almanza DO [Primary Care Provider] - Please Follow Up With: Art Acevedo NP-C When: 04/11 at 0930 Additional Instructions: You will need to stay on Plavix for at least 12 months you will be referred to cardiac rehab Stop you Verapmil and start metoprolol 25 mg twice a day. [facility]. Disposition: Home Minutes spent on discharge:: 30 Patient Condition:: Stable Medical Necessity - Tobacco Use Smoking Status: Never smoker Meaningful Use Info Meaningful Use Diagnoses (Choose all that apply): None applicable
== END 2018-03-29 10:53 | disposition home or self-care (01) ==
LOC: CLSP 06:46 → ICU 09:56
PROVIDERS: Internal Medicine Cardiovascular Disease; Family Provider Family Medicine; PCP Family Medicine; Visit Provider Internal Medicine Cardiovascular Disease
DX: I25.10 Atherosclerotic heart disease of native coronary artery without angina pectoris (principal); I12.9 Hypertensive chronic kidney disease with stage 1 through stage 4 chronic kidney disease, or unspecified chronic kidney disease; E11.22 Type 2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with diabetic chronic kidney disease; N18.3 Chronic kidney disease, stage 3 (moderate); E78.5 Hyperlipidemia, unspecified; M10.9 Gout, unspecified; M19.90 Unspecified osteoarthritis, unspecified site; G47.30 Sleep apnea, unspecified; K21.9 Gastro-esophageal reflux disease without esophagitis; R94.39 Abnormal result of other cardiovascular function study; Z79.02 Long term (current) use of antithrombotics/antiplatelets; Z79.82 Long term (current) use of aspirin; Z79.899 Other long term (current) drug therapy
CPT/HCPCS: 36415; 71046; 80048; 82962; 85025; 85027; 85347; 85610; 85730; 87641; 92928; 92978; 93005; 93454; 97802; 99152; 99153; J7030; J7040; Q9967; C1725; C1753; C1769; C1874; C1887; C1894; C9600

== ENCOUNTER → 2018-04-03 14:13 | Outpatient (CLI) | payer MEDICARE, OTHER, SELFPAY ==
[2018-03-28 12:55] VITALS: BMI 56.3
[2018-04-03 14:54] LABS: Absolute Lymphocyte Count 2.53 X10^3/ul (0.83-4.51); Absolute Neutrophil Count 5.3 X10^3/uL (2.0-7.7); Basophil# 0.07 X10^3/uL; Basophil% 0.8 % (0-1); Eosinophil# 0.28 X10^3/uL; Eosinophils% 3.1 % (0-5); Hematocrit 42.4 % (37-47); Hemoglobin 13.9 g/dl (12.0-15.0); Lymphocyte # 2.53 X10^3/ul (4.0); Lymphocyte % 28.1 % (19-41); Mean Corp Hgb Conc 32.8 g/gl (32-36); Mean Corpuscular Volume 94.6 fL (81-99); Mean Platelet Vol. 9.5 fl (6.2-12.0); Monocyte# 0.79 X10^3/uL; Monocyte% 8.8 % (0-10); Neutrophil # 5.29 X10^3/uL (2.7-7.7); Neutrophil % 58.9 % (47-70); Platelet Count 297 K/mm3 (150-450); RBC Distribution Width CV 14.1 % (11.6-14.6); RBC Distribution Width SD 47.2 fl (35.1-43.9); Red Blood Count 4.48 M/mm3 (4.2-5.4)
[2018-04-03 14:55] LABS: POSITIVE COUNT NO; POSITIVE DIFFERENTIAL NO; POSITIVE MORPHOLOGY NO
== END ==
PROVIDERS: Family Provider Family Medicine; PCP Family Medicine; Visit Provider Internal Medicine Cardiovascular Disease
DX: I10 Essential (primary) hypertension (principal); I25.10 Atherosclerotic heart disease of native coronary artery without angina pectoris; R19.5 Other fecal abnormalities; Z95.5 Presence of coronary angioplasty implant and graft
CPT/HCPCS: 36415; 85025

== ENCOUNTER → 2018-04-07 12:35 | Outpatient (CLI) | payer MEDICARE, OTHER, SELFPAY ==
[2018-03-28 12:55] VITALS: BMI 56.3
--- NOTE | 2018-04-07 12:57 | PCM.CR.HP2 ---
CR - History & Physical - General Arrival date:: 04/07/18 Arrival time:: 12:57 Date of Referral:: 04/07/18 Date of CR Evaluation:: 04/07/18 Referring Physician: Dr. Cristina Winter Primary Diagnosis: I25.10 - History of Present Cardiac Event Onset Date: Enter Onset Date of cardiac illnesses in Comment field below Current stable Angina Pectoris:: No Acute Myocardial Infarction within 12 months:: No Coronary Artery Bypass Graft:: No Heart valve replacement or repair:: No PTCA or coronary stenting:: Yes - 03/28/18 Heart or Heart-Lung Transplant:: No Heart Failure EF <35%:: No Type of Symptoms:: SOB Interventions with present event:: stress test, PCI with stent Were there any complications?: no - Medications Home Medications: Ambulatory Orders Medication Instructions Recorded Furosemide [Lasix] 40 mg PO DAILY 12/22/14 Lisinopril [Zestril] 20 mg PO DAILY 12/22/14 Omeprazole [Prilosec] 20 mg PO DAILY 12/22/14 buPROPion SR [Wellbutrin SR (150mg 150 mg PO QHS 12/22/14 tablets)] Multivitamins,Therapeutic 1 tab PO DAILY 07/15/15 [Multivitamin] allopurinol 100 mg tablet 200 mg PO DAILYCM tab 03/15/18 citalopram 20 mg tablet 20 mg PO QDAY tab 03/15/18 dulaglutide 1.5 mg/0.5 mL 0.5 mg SC QWEEK ml 03/15/18 subcutaneous pen injector omega-3 fatty acids 1,000 mg 1,000 mg PO QDAY 03/15/18 capsule repaglinide 1 mg tablet 1 mg PO QDAY tab 03/15/18 aspirin 81 mg chewable tablet 81 mg PO QDAY #30 tab 03/16/18 Clopidogrel Bisulfate [Plavix] 75 mg PO DAILY tablet 03/29/18 metoprolol tartrate 25 mg tablet 25 mg PO BID #60 tab 03/29/18 Cholecalciferol (Vitamin D3) 5,000 unit PO DAILY 04/07/18 [Vitamin D3] - Allergies Allergies/Adverse Reactions: Allergies naproxen [From Naprosyn] Adverse Reaction (Severe, Verified 03/16/18 13:04) INTERNAL BLEEDING prednisone Adverse Reaction (Severe, Verified 03/16/18 13:04) COMBINATION WITH NAPROXEN CAUSED INTERNAL BLEEDING exenatide [From Byetta] Adverse Reaction (Intermediate, Verified 03/16/18 13:04) Unknown ezetimibe [From Zetia] Adverse Reaction (Intermediate, Verified 03/16/18 13:04) Unknown fluticasone [From Flonase] Adverse Reaction (Intermediate, Verified 03/16/18 13:04) Unknown amoxicillin [From Augmentin] Adverse Reaction (Unknown, Verified 03/16/18 13:04) Unknown clavulanic acid [From Augmentin] Adverse Reaction (Unknown, Verified 03/16/18 13:04) Unknown clorazepate dipotassium [From Tranxene T-Tab] Adverse Reaction (Unknown, Verified 03/16/18 13:04) Unknown indomethacin [From Indocin] Adverse Reaction (Unknown, Verified 03/16/18 13:04) Unknown ketoprofen [From Oruvail] Adverse Reaction (Unknown, Verified 03/16/18 13:04) Unknown nizatidine [From Axid] Adverse Reaction (Unknown, Verified 03/16/18 13:04) Unknown ranitidine [From Zantac] Adverse Reaction (Unknown, Verified 03/16/18 13:04) Unknown rosuvastatin [From Crestor] Adverse Reaction (Unknown, Verified 03/16/18 13:04) Unknown sertraline [From Zoloft] Adverse Reaction (Unknown, Verified 03/16/18 13:04) Unknown sulfamethoxazole [From Septra] Adverse Reaction (Unknown, Verified 03/16/18 13:04) Unknown trimethoprim [From Septra] Adverse Reaction (Unknown, Verified 03/16/18 13:04) Unknown naldecon Adverse Reaction (Unknown, Uncoded 03/16/18 13:04) Unknown - Sleep Disorder Evaluation Hx of Sleep Apnea: Yes Do you snore loudly (louder than talking or can be heard through closed doors)?: Yes Do you often feel tired/ fatigued/ sleepy during daytime?: Yes Has anyone observed you stop breathing during sleep?: Yes History of Hypertension (for STOP score): Yes - On CPAP STOP Results: Positive Advanced Directives - Advanced Directives Power of Wood Polisher: No Living Will: No Advance Directives Information Provided: Yes Advance Directives on File: No Past Medical History - Past Medical Illness Medical History: Past Medical History (Last Reviewed 03/16/18 @ 13:09 by Sherrie Goldsmith) Atherosclerotic heart disease of [place] coronary artery without angina pectoris (Chronic) I25.10 Type 2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(Chronic) E11.9 CKD (chronic kidney disease) stage 3, GFR 30-59 ml/min N18.3 GERD (gastroesophageal reflux disease) K21.9 Gout M10.9 Hypertension I10 Osteoarthritis M19.90 Sleep apnea G47.30 - Past Surgical History Surgical History: Past Surgical History (Last Reviewed 03/16/18 @ 13:09 by Sherrie Goldsmith) History of cholecystectomy Z90.49 Hx of appendectomy Z90.49 Surgical History: appendectomy, cholecystectomy, - - Right shoulder by Dr. Kevon Moon - Family History Summary Family History: Family History (Last Reviewed 03/16/18 @ 13:09 by Sherrie Goldsmith) Mother Hypertension Myocardial infarction CAD (coronary artery disease) Father Angina pectoris Social History - Smoking History Smoking Status: Never smoker - Alcohol Use Alcohol Usage: No - Substance Abuse Hx Substance Use: No - Occupation Occupation (List type of work in comments):: Retired - Hobbies, Recreation, Social Activities Hobbies: Other - family Recreational Activities: I am able to engage in all my recreational activities Social Environment - Status Marital Status: - Current Living Arrangements Living Environment:: Spouse - Children How many children do you have?: 3 Do any of your children live nearby?: Yes - Safety Do you feel safe in your surroundings?: Yes - Assistance Do you need any assistance at home?: no Review of Systems - Review of Systems Hints: Right click = Denies (Slash). Left click = Reports ([place]) Review of Present Symptoms: Reports: Fatigue, Appetite - Normal - nausea since procedure., Appetite - Special Diet - Cardiac diabetic. Denies: Shortness of Breath at Rest, Shortness of Breath with Exertion, PVD, Operative Discomfort, Angina, Wound Healing, Dizziness/Lightheadedness, Heart Arrhythmia/Irregularities, Sleep - Normal, Sexual Changes - Pain Is Patient Pain Free?: Yes Previous experience dealing with pain?: knee pain occas, uses Tylenol rarely. Risk Factor Assessment - Chief Complaint Chief Complaint: wanted her here. - Pulse Pulse Rate: 62 Pulse Rhythm: Regular - Hypertension How long have you been treated?: 43 years On medication(s)?: yes Blood Pressure Sitting - Right Arm: 112/70 Blood Pressure Sitting - Left Arm: 116/70 - Diabetes Diabetic History: Type II, Medication Dependent, Insulin Dependent Nutrition Referral for Diabetes: Yes - Obesity Height: 1.59 m Weight:: 138.856 kg Weight in Pounds: 306.1 lbs Weight Source: Standing Scale Body Mass Index (BMI): 55.0 Desired Body Weight: 282 Realistic Weight Goal (Loss of 1-2 lbs/week): 282 Nutritional Referral for Obesity: Yes - Physical Inactivity Physical Inactivity: None Exercise Limitations: has bad knees - Risk Stratification Risk Guidelines: Lowest Risk: Risk Factor for Smoking, Moderate Risk: Risk Factor for Dyslipidemia, Risk Factor for Depression, Highest Risk: Risk Factor for Diabetes, Risk Factor for Obesity, Risk Factor for Hypertension, Risk Factor for Sedentary Lifestyle - For Smoking Smoking Risk Guidelines: Smoking Low Risk: None or quit greater than 6 months ago. Smoking Moderate Risk: Smoker or quit 6 months or less ago. Smoking High Risk: Smoker - For Dyslipidemia Dyslipidemia Risk Guidelines: Low Risk: Moderate Risk: High Risk: 15-25% fat 25.1-29% fat >/= 30% fat. <7% sat fat 7-9% sat fat >9% sat fat. <150 mg chol 150-299 mg chol >/= 300 mg chol. LDL <100 LDL 100-129 LDL >/= 130. Chol/HDL ratio <5.0 Chol/HDL ratio 5.0-6.0 Chol/HDL ratio >6.0. Triglycerides <100 Triglycerides 100-149 Triglycerides >/= 150 - For Diabetes Mellitus Diabetes Risk Guidelines: Diabetes Low Risk: HgA1c <6.5% and/or FBG <120. Diabetes Moderate Risk: HgA1c 6.6-7.9% and/or FBG 120-180. Diabetes High Risk: HgA1c >/= 8% and/or FBG >180 - For Obesity/Overweight Obesity/Overweight Risk Guidelines: Obesity Low Risk: BMI <25.0. Obesity Moderate Risk: BMI 25-29.9. Obesity High Risk: BMI >/= 30.0 - For Hypertension Hypertension Risk Guidelines: Hypertension Low Risk: Systolic <120 and Diastolic <80. Hypertension Moderate Risk: Systolic 120-139 and Diastolic 80-89. Hypertension High Risk: Systolic >/= 140 and Diastolic >/= 90 - For Sedentary Lifestyle Sedentary Lifestyle Risk Guidelines: Sedentary Lifestyle Low Risk: >/= 1,500 kcal/week. Sedentary Lifestyle Moderate Risk: 700-1,499 kcal/week. Sedentary Lifestyle High Risk: < 700 kcal/week - For Depression Depression Risk Guidelines: Depression Low Risk: Not clinically depressed. Depression Moderate Risk: Mildly depressed. Depression High Risk: Clinically depressed - Family History Family History: Family History (Last Reviewed 03/16/18 @ 13:09 by Sherrie Goldsmith) Mother Hypertension Myocardial infarction CAD (coronary artery disease) Father Angina pectoris Motivation - Motivation to Participate On a scale of 1 to 10, how prepared are you to commit to attending program?: 10
--- NOTE | 2018-04-07 13:08 | CR.ITP_ITS ---
General Information - General Information Admitting Diagnosis: I25.10 - Education/Goals Barriers to Learning: None Cardiac Rehabilitation Goals: 1. Maintain the individual as the primary focus of care. 2. To improve the patient's quality of life. 3. Identification of cardiac risk factors and provide cardiac risk factor management. 4. Enhance the psychosocial status of the patient. 5. Reconditioning enough to allow the patient to resume customary activities. 6. Control symptoms of cardiac disease Scale for measuring improvement of personal goals: Enter appropriate number in Comments. 2 = Unchanged. 3 = Slightly Better. 4 = Moderate Improvement. 5 = Met my Goal Personal Goals: Initial Assessment: Improve energy level, Participate in home exercise program, Get back to work, or to resume activities faster, Improve knowledge of cardiac disease, Improve muscle strength and endurance, Improve diet and eating habits (eat healthier), Control risk factors (learn risk factor modification), Other goal: Exercise - Initial Assessment - Visit Date of Eval: 04/07/18 Patient Health Questionnaire Initial Assessment 1. Little interest or pleasure in doing things: Nearly every day 2. Feeling down, depressed, or hopeless: More than half the days 3. Trouble falling or staying asleep, or sleeping too much: Several days 4. Feeling tired or having little energy: Nearly every day 5. Poor appetite or overeating: Nearly every day 6. Feeling bad about yourself -- or that you are a failure or have let yourself or your family down: Several days 7. Trouble concentrating on things, such as reading the newspaper or watching television: Several days 8. Moving or speaking so slowly that other people could have noticed. Or the opposite - being so fidgety or restless that you have been moving around a lot more than usual: Several days 9. Thoughts that you would be better off , or of hurting yourself in some way: Not at all How difficult have these problems made it for you to do your work, take care of things at home, or get along with other people?: Somewhat difficult Total Score: 15 CHANDRIKA-Q SV Test - Statements CAD is a disease of the arteries in the heart: I Don't Know Examples of risk factors for heart disease: True Angina is chest pain or discomfort: True The benefits of resistance training include: True Eating more meat and dairy products: False Anti-platelet medications such as aspirin are important: True The only effective way to manage stress: False An exercise warm-up slowly increases heart rate: I Don't Know Prepared, processed foods usually have high sodium: True Depression is common after a heart attack: I Don't Know The statin medications lower cholesterol: I Don't Know To control blood pressure, lower the amount of sodium: True If someone gets chest discomfort during walking: False Transfats are partially hydrogenated vegetable oils: I Don't Know Sleep apnea that is not treated increases the risk: I Don't Know To control cholesterol, one should become a vegetarian: False Someone knows if he/she is exercising at the right level: I Don't Know Diabetes cannot be prevented with exercise & health eating: False Stress is a large risk for heart attack: True A diet that can help lower blood pressure is rich in: True - Total Score Total Correct Responses: 13 Self-Efficacy Initial Assessment We would like to know how confident you are in doing certain activities. Please select your confidence level for:: Select your confidence level for the following using the scale 1-10 where 1 is not at all confident and 10 is totally confident. Your score is the average of all 6 responses. Fatigue: How confident are you that you can keep the fatigue caused by your disease from interfering with the things you want to do? Select Number: 1 Physical Discomfort or Pain: How confident are you that you can keep the physical discomfort or pain of your disease from interfering with the things you want to do? Select Number: 1 Emotional Distress: How confident are you that you can keep the emotional distress caused by your disease from interfering with the things you want to do? Select Number: 6 Other Symptoms or Health Problems: How confident are you that you can keep other symptoms or health problems from interfering with the things you want to do? Select Number: 1 Different Tasks and Activities: How confident are you that you can do the different tasks and activities needed to manage your health condition so as to reduce your need to see a doctor? Select Number: 6 Medication: How confident are you that you can do things other than just taking medication to reduce how much your illness affects your everyday life? Select Number: 6 Total Score:: 3 Nutrition Survey - Nutrition Survey Instructions Scoring Instructions: Scoring is as follows: Yes = 1 points. No = 0 point. Patient score that is >/=12 is considered to be at potential nutritional risk and could benefit from a referral to a registered dietitian. - Nutrition Survey Initial Have you lost >10 lbs over the past 2 months without trying?: No Are you following a special diet at home for diabetes, low fat, or low salt?: No Are you interested in meeting with a dietitian for help understanding your diet? : Yes Do you eat less than 3 meals a day?: Yes Do you eat fatty meats ([place], sausage, ribs, etc), fried foods, desserts, large amounts of salad dressings, margarine, butter, or cheese most days?: Yes Do you have food allergies? [Enter types in comment field]: No Do you eat in restaurants more than 3 times a week?: No Do you season food with salt, seasoning salt, or garlic salt?: No Do you used canned, boxed, frozen meals, or soups, seasoning packets?: No Total Score:: 3
--- NOTE | 2018-04-07 13:13 | CR.HP_ITS ---
CR - History & Physical - General Arrival date:: 04/07/18 Arrival time:: 12:57 Date of Referral:: 04/07/18 Date of CR Evaluation:: 04/07/18 Referring Physician: Dr. Cristina Winter Primary Diagnosis: I25.10 - History of Present Cardiac Event Onset Date: Enter Onset Date of cardiac illnesses in Comment field below Current stable Angina Pectoris:: No Acute Myocardial Infarction within 12 months:: No Coronary Artery Bypass Graft:: No Heart valve replacement or repair:: No PTCA or coronary stenting:: Yes - 03/28/18 Heart or Heart-Lung Transplant:: No Heart Failure EF <35%:: No Type of Symptoms:: SOB Interventions with present event:: stress test, PCI with stent Were there any complications?: no - Medications Home Medications: Ambulatory Orders Medication Instructions Recorded Furosemide [Lasix] 40 mg PO DAILY 12/22/14 Lisinopril [Zestril] 20 mg PO DAILY 12/22/14 Omeprazole [Prilosec] 20 mg PO DAILY 12/22/14 buPROPion SR [Wellbutrin SR (150mg 150 mg PO QHS 12/22/14 tablets)] Multivitamins,Therapeutic 1 tab PO DAILY 07/15/15 [Multivitamin] allopurinol 100 mg tablet 200 mg PO DAILYCM tab 03/15/18 citalopram 20 mg tablet 20 mg PO QDAY tab 03/15/18 dulaglutide 1.5 mg/0.5 mL 0.5 mg SC QWEEK ml 03/15/18 subcutaneous pen injector omega-3 fatty acids 1,000 mg 1,000 mg PO QDAY 03/15/18 capsule repaglinide 1 mg tablet 1 mg PO QDAY tab 03/15/18 aspirin 81 mg chewable tablet 81 mg PO QDAY #30 tab 03/16/18 Clopidogrel Bisulfate [Plavix] 75 mg PO DAILY tablet 03/29/18 metoprolol tartrate 25 mg tablet 25 mg PO BID #60 tab 03/29/18 Cholecalciferol (Vitamin D3) 5,000 unit PO DAILY 04/07/18 [Vitamin D3] - Allergies Allergies/Adverse Reactions: Allergies naproxen [From Naprosyn] Adverse Reaction (Severe, Verified 03/16/18 13:04) INTERNAL BLEEDING prednisone Adverse Reaction (Severe, Verified 03/16/18 13:04) COMBINATION WITH NAPROXEN CAUSED INTERNAL BLEEDING exenatide [From Byetta] Adverse Reaction (Intermediate, Verified 03/16/18 13:04) Unknown ezetimibe [From Zetia] Adverse Reaction (Intermediate, Verified 03/16/18 13:04) Unknown fluticasone [From Flonase] Adverse Reaction (Intermediate, Verified 03/16/18 13: 04) Unknown amoxicillin [From Augmentin] Adverse Reaction (Unknown, Verified 03/16/18 13:04) Unknown clavulanic acid [From Augmentin] Adverse Reaction (Unknown, Verified 03/16/18 13 :04) Unknown clorazepate dipotassium [From Tranxene T-Tab] Adverse Reaction (Unknown, Verified 03/16/18 13:04) Unknown indomethacin [From Indocin] Adverse Reaction (Unknown, Verified 03/16/18 13:04) Unknown ketoprofen [From Oruvail] Adverse Reaction (Unknown, Verified 03/16/18 13:04) Unknown nizatidine [From Axid] Adverse Reaction (Unknown, Verified 03/16/18 13:04) Unknown ranitidine [From Zantac] Adverse Reaction (Unknown, Verified 03/16/18 13:04) Unknown rosuvastatin [From Crestor] Adverse Reaction (Unknown, Verified 03/16/18 13:04) Unknown sertraline [From Zoloft] Adverse Reaction (Unknown, Verified 03/16/18 13:04) Unknown sulfamethoxazole [From Septra] Adverse Reaction (Unknown, Verified 03/16/18 13: 04) Unknown trimethoprim [From Septra] Adverse Reaction (Unknown, Verified 03/16/18 13:04) Unknown naldecon Adverse Reaction (Unknown, Uncoded 03/16/18 13:04) Unknown - Sleep Disorder Evaluation Hx of Sleep Apnea: Yes Do you snore loudly (louder than talking or can be heard through closed doors)? : Yes Do you often feel tired/ fatigued/ sleepy during daytime?: Yes Has anyone observed you stop breathing during sleep?: Yes History of Hypertension (for STOP score): Yes - On CPAP STOP Results: Positive Advanced Directives - Advanced Directives Power of Protection Analyst: No Living Will: No Advance Directives Information Provided: Yes Advance Directives on File: No Past Medical History - Past Medical Illness Medical History: Past Medical History (Last Reviewed 03/16/18 @ 13:09 by Sherrie Goldsmith) Atherosclerotic heart disease of [place] coronary artery without angina pectoris (Chronic) I25.10 Type 2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(Chronic) E11.9 CKD (chronic kidney disease) stage 3, GFR 30-59 ml/min N18.3 GERD (gastroesophageal reflux disease) K21.9 Gout M10.9 Hypertension I10 Osteoarthritis M19.90 Sleep apnea G47.30 - Past Surgical History Surgical History: Past Surgical History (Last Reviewed 03/16/18 @ 13:09 by Sherrie Goldsmith) History of cholecystectomy Z90.49 Hx of appendectomy Z90.49 Surgical History: appendectomy, cholecystectomy, - - Right shoulder by Dr. Kevon Moon - Family History Summary Family History: Family History (Last Reviewed 03/16/18 @ 13:09 by Sherrie Goldsmith) Mother Hypertension Myocardial infarction CAD (coronary artery disease) Father Angina pectoris Social History - Smoking History Smoking Status: Never smoker - Alcohol Use Alcohol Usage: No - Substance Abuse Hx Substance Use: No - Occupation Occupation (List type of work in comments):: Retired - Hobbies, Recreation, Social Activities Hobbies: Other - family Recreational Activities: I am able to engage in all my recreational activities Social Environment - Status Marital Status: - Current Living Arrangements Living Environment:: Spouse - Children How many children do you have?: 3 Do any of your children live nearby?: Yes - Safety Do you feel safe in your surroundings?: Yes - Assistance Do you need any assistance at home?: no Review of Systems - Review of Systems Hints: Right click = Denies (Slash). Left click = Reports ([place]) Review of Present Symptoms: Reports: Fatigue, Appetite - Normal - nausea since procedure., Appetite - Special Diet - Cardiac diabetic. Denies: Shortness of Breath at Rest, Shortness of Breath with Exertion, PVD, Operative Discomfort, Angina, Wound Healing, Dizziness/Lightheadedness, Heart Arrhythmia/ Irregularities, Sleep - Normal, Sexual Changes - Pain Is Patient Pain Free?: Yes Previous experience dealing with pain?: knee pain occas, uses Tylenol rarely. Risk Factor Assessment - Chief Complaint Chief Complaint: wanted her here. - Pulse Pulse Rate: 62 Pulse Rhythm: Regular - Hypertension How long have you been treated?: 43 years On medication(s)?: yes Blood Pressure Sitting - Right Arm: 112/70 Blood Pressure Sitting - Left Arm: 116/70 - Diabetes Diabetic History: Type II, Medication Dependent, Insulin Dependent Nutrition Referral for Diabetes: Yes - Obesity Height: 1.59 m Weight:: 138.856 kg Weight in Pounds: 306.1 lbs Weight Source: Standing Scale Body Mass Index (BMI): 55.0 Desired Body Weight: 282 Realistic Weight Goal (Loss of 1-2 lbs/week): 282 Nutritional Referral for Obesity: Yes - Physical Inactivity Physical Inactivity: None Exercise Limitations: has bad knees - Risk Stratification Risk Guidelines: Lowest Risk: Risk Factor for Smoking, Moderate Risk: Risk Factor for Dyslipidemia, Risk Factor for Depression, Highest Risk: Risk Factor for Diabetes, Risk Factor for Obesity, Risk Factor for Hypertension, Risk Factor for Sedentary Lifestyle - For Smoking Smoking Risk Guidelines: Smoking Low Risk: None or quit greater than 6 months ago. Smoking Moderate Risk: Smoker or quit 6 months or less ago. Smoking High Risk: Smoker - For Dyslipidemia Dyslipidemia Risk Guidelines: Low Risk: Moderate Risk: High Risk: 15-25% fat 25.1-29% fat >/= 30% fat. <7% sat fat 7-9% sat fat >9% sat fat. <150 mg chol 150-299 mg chol >/= 300 mg chol. LDL <100 LDL 100-129 LDL >/= 130. Chol/HDL ratio <5.0 Chol/HDL ratio 5.0-6.0 Chol/HDL ratio >6.0. Triglycerides <100 Triglycerides 100-149 Triglycerides >/= 150 - For Diabetes Mellitus Diabetes Risk Guidelines: Diabetes Low Risk: HgA1c <6.5% and/or FBG <120. Diabetes Moderate Risk: HgA1c 6.6-7.9% and/or FBG 120-180. Diabetes High Risk: HgA1c >/= 8% and/or FBG >180 - For Obesity/Overweight Obesity/Overweight Risk Guidelines: Obesity Low Risk: BMI <25.0. Obesity Moderate Risk: BMI 25-29.9. Obesity High Risk: BMI >/= 30.0 - For Hypertension Hypertension Risk Guidelines: Hypertension Low Risk: Systolic <120 and Diastolic <80. Hypertension Moderate Risk: Systolic 120-139 and Diastolic 80-89. Hypertension High Risk: Systolic >/= 140 and Diastolic >/= 90 - For Sedentary Lifestyle Sedentary Lifestyle Risk Guidelines: Sedentary Lifestyle Low Risk: >/= 1 ,500 kcal/week. Sedentary Lifestyle Moderate Risk: 700-1,499 kcal/week. Sedentary Lifestyle High Risk: < 700 kcal/week - For Depression Depression Risk Guidelines: Depression Low Risk: Not clinically depressed. Depression Moderate Risk: Mildly depressed. Depression High Risk: Clinically depressed - Family History Family History: Family History (Last Reviewed 03/16/18 @ 13:09 by Sherrie Goldsmith) Mother Hypertension Myocardial infarction CAD (coronary artery disease) Father Angina pectoris Motivation - Motivation to Participate On a scale of 1 to 10, how prepared are you to commit to attending program?: 10
[2018-04-07 14:21] VITALS: BP 112/70; BP 116/70; PULSE 62; BMI 55.0
== END ==
PROVIDERS: Family Provider Family Medicine; PCP Family Medicine; Visit Provider Internal Medicine Cardiovascular Disease
DX: I25.10 Atherosclerotic heart disease of native coronary artery without angina pectoris (principal); Z95.5 Presence of coronary angioplasty implant and graft

== ENCOUNTER 2018-04-14 11:30 | Outpatient (RCR) | payer MEDICARE, OTHER, SELFPAY ==
[2018-03-28 12:55] VITALS: BMI 56.3
== END 2018-04-18 23:59 ==
LOC: CR 11:30
PROVIDERS: Family Provider Family Medicine; PCP Family Medicine; Visit Provider Internal Medicine Cardiovascular Disease
DX: I25.10 Atherosclerotic heart disease of native coronary artery without angina pectoris (principal); Z95.5 Presence of coronary angioplasty implant and graft
CPT/HCPCS: 93798

== ENCOUNTER → 2018-05-11 09:39 | Outpatient (CLI) | payer MEDICARE, OTHER, SELFPAY ==
[2018-03-28 12:55] VITALS: BMI 56.3
[2018-05-11 11:13] LABS: Hemoglobin A1c 5.7 % (4.2-6.3)
[2018-05-11 11:19] LABS: ALB/GLOB Ratio 1.2 RATIO (0.9-2.4); AST(SGOT) 19 U/L (15-37); Alanine Aminotransfer ALT/SGPT 26 U/L (13-56); Albumin, Serum 3.9 g/dL (3.2-5.0); Alkaline Phosphatase 86 U/L (45-117); Anion Gap 10 (5-15); BUN 38 mg/dL (7-18); BUN/Creat Ratio 23.9 RATIO (10-20); Calcium,Total 9.1 mg/dL (8.5-10.1); Chloride 105 mmol/L (98-107); Creatinine, Serum 1.59 mg/dL (0.55-1.02); EST Glomerular Filtration Rate 34 mL/min (>60); Est Glom Filt Rate - Afr Amer 41 mL/min (>60); Globulin 3.3 g/dL (2.2-4.2); Glucose 107 mg/dL (74-106); Potassium 4.4 mmol/L (3.5-5.1); Protein, Total 7.2 g/dL (6.4-8.2); Sodium Level 140 mmol/L (136-145); Thyroid Stim Hormone (TSH) 0.52 uIU/mL (0.358-3.74)
== END ==
PROVIDERS: Family Provider Family Medicine; PCP Family Medicine; Visit Provider Internal Medicine Endocrinology, Diabetes & Metabolism
DX: E11.22 Type 2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with diabetic chronic kidney disease (principal); N18.4 Chronic kidney disease, stage 4 (severe); Z79.4 Long term (current) use of insulin
CPT/HCPCS: 36415; 80053; 83036; 84443

== ENCOUNTER 2018-05-18 11:10 | Outpatient (RCR) | payer MEDICARE, OTHER, SELFPAY ==
[2018-03-28 12:55] VITALS: BMI 56.3
== END 2018-05-19 23:59 ==
LOC: DC 11:10
PROVIDERS: Family Provider Family Medicine; PCP Family Medicine; Visit Provider Internal Medicine Cardiovascular Disease
DX: E11.9 Type 2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without complications (principal); E66.9 Obesity, unspecified; N18.3 Chronic kidney disease, stage 3 (moderate); Z71.3 Dietary counseling and surveillance
CPT/HCPCS: G0108

== ENCOUNTER 2018-05-19 11:30 | Outpatient (RCR) | payer MEDICARE, OTHER, SELFPAY ==
[2018-03-28 12:55] VITALS: BMI 56.3
--- NOTE | 2018-05-12 10:25 | PCM.CR.ITP ---
General Information - General Information Admitting Diagnosis: PCI S/P Coronary artery stenting - Education/Goals Cardiac Rehabilitation Goals: 1. Maintain the individual as the primary focus of care. 2. To improve the patient's quality of life. 3. Identification of cardiac risk factors and provide cardiac risk factor management. 4. Enhance the psychosocial status of the patient. 5. Reconditioning enough to allow the patient to resume customary activities. 6. Control symptoms of cardiac disease Scale for measuring improvement of personal goals: Enter appropriate number in Comments. 2 = Unchanged. 3 = Slightly Better. 4 = Moderate Improvement. 5 = Met my Goal Exercise - 60-Day Assessment - Visit Date of Eval: 05/12/18 Session #:: 3 - Stages of Change Stages of Change:: Action - Exercise Prescription Mode:: Treadmill, Airdyne, NuStep Frequency (x/week): 3 Duration:: 30 METs: 2.5 Target Heart Rate:: 106-114 Max HR 96 - Hypertension Resting Blood Pressure:: 114/62 Peak Exercise Blood Pressure:: 138/70 - Intervention Home Exercise/Activity Goal:: Sitting Time <3 hrs/day - Education Goals:: Warm-up, RPE EUGENIA Scale, S/S, Safe Exercise, Self-Monitoring - Exercise Program Goals Exercise Program Goals: Aerobic Activity >30 min, B/P <130/80 Nutrition - 60-Day Assessment - Program Goals Nutrition Program Goals: LDL <70. Total Cholesterol <200. HDL >45. Triglycerides <150. HgbA1C <7%. BMI <25 - Visit Date of Eval: 05/12/18 - Stages of Change Stages of Change:: Action - Weight Management Weight:: 138.799 kg - Intervention Will attend diet classes:: Yes - Education Attended class for:: Signs & symptoms of hypoglycemia, Signs & symptoms of hyperglycemia, Relate diabetes to coronary artery disease, Healthy eating Tobacco - 60-Day Assessment - Program Goals Tobacco Program Goals: Complete smoking cessation. Attend education classes. Improve Knowledge Test score - Stage of Change Stages of Change:: Action - Learning Barriers Learning Barriers: Participates in education - Family Support Do you have family support?: Yes - Tobacco Use Tobacco Use: Non-smoker Do you use smokeless tobacco?: No - Intervention Smoking Cessation Referral:: No Individual Education/Counseling:: No Education Schedule Given:: Yes - Education Attended class for:: Tobacco triggers, Coronary artery disease, Risk factors, Sexuality, Medical compliance, Cardiac A&P, Angina signs & symptoms Psychosocial - 60-Day Assess - Target Goals Target Goals: Assess presence or absence of depression. Using a valid screening tool, maximizes coping skills. Positive support system - Stages of Change Stages of Change:: Action - Psychosocial Test Tool Used:: HANDS Depression Questionnaire - Intervention PS - Interventions: Yes Attend Stress Management Classes, Yes Uses Stress Management Skills, No Referral to Mental Health, No Referral to [facility] Case Management, No Referral to Physician - Education Attended classes for:: Coping techniques, Signs & symptoms of depression, Stress management, Relaxation techniques - Assistive Devices Assistive Devices:: Cane Fall Risk Assessed:: Yes Patient Health Questionnaire 60-Day Re-eval Assessment 1. Little interest or pleasure in doing things: More than half the days 2. Feeling down, depressed, or hopeless: More than half the days 4. Feeling tired or having little energy: Several days 5. Poor appetite or overeating: Nearly every day 6. Feeling bad about yourself -- or that you are a failure or have let yourself or your family down: Several days 7. Trouble concentrating on things, such as reading the newspaper or watching television: Several days 8. Moving or speaking so slowly that other people could have noticed. Or the opposite - being so fidgety or restless that you have been moving around a lot more than usual: Several days 9. Thoughts that you would be better off , or of hurting yourself in some way: Not at all How difficult have these problems made it for you to do your work, take care of things at home, or get along with other people?: Somewhat difficult Total Score: 11 Self-Efficacy 60-Day Re-eval Assessment We would like to know how confident you are in doing certain activities. Please select your confidence level for:: Select your confidence level for the following using the scale 1-10 where 1 is not at all confident and 10 is totally confident. Your score is the average of all 6 responses. Fatigue: How confident are you that you can keep the fatigue caused by your disease from interfering with the things you want to do? Select Number: 1 Physical Discomfort or Pain: How confident are you that you can keep the physical discomfort or pain of your disease from interfering with the things you want to do? Select Number: 1 Emotional Distress: How confident are you that you can keep the emotional distress caused by your disease from interfering with the things you want to do? Select Number: 6 Other Symptoms or Health Problems: How confident are you that you can keep other symptoms or health problems from interfering with the things you want to do? Select Number: 1 Different Tasks and Activities: How confident are you that you can do the different tasks and activities needed to manage your health condition so as to reduce your need to see a doctor? Select Number: 6 Medication: How confident are you that you can do things other than just taking medication to reduce how much your illness affects your everyday life? Select Number: 6 Total Score:: 3
[2018-05-12 10:31] VITALS: BP 114/62; BP 138/70
== END 2018-05-19 23:59 ==
LOC: CR 11:30
PROVIDERS: Family Provider Family Medicine; PCP Family Medicine; Visit Provider Internal Medicine Cardiovascular Disease
DX: I25.10 Atherosclerotic heart disease of native coronary artery without angina pectoris (principal); Z95.5 Presence of coronary angioplasty implant and graft
CPT/HCPCS: 93798

== ENCOUNTER 2018-05-25 11:58 | Outpatient (RCR) | payer MEDICARE, OTHER, SELFPAY ==
[2018-03-28 12:55] VITALS: BMI 56.3
== END 2018-06-18 23:59 ==
LOC: DC 11:58
PROVIDERS: Family Provider Family Medicine; PCP Family Medicine; Visit Provider Internal Medicine Cardiovascular Disease
DX: E11.9 Type 2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without complications (principal); E66.9 Obesity, unspecified; N18.3 Chronic kidney disease, stage 3 (moderate); Z71.3 Dietary counseling and surveillance
CPT/HCPCS: 97802

== ENCOUNTER → 2018-05-31 10:15 | Outpatient (CLI) | payer MEDICARE, OTHER, SELFPAY ==
[2018-03-28 12:55] VITALS: BMI 56.3
[2018-05-31 10:59] LABS: Hematocrit 42.8 % (37-47); Hemoglobin 13.5 g/dl (12.0-15.0); Mean Corp Hgb Conc 31.5 g/gl (32-36); Mean Corpuscular Hgb 30.1 pg (27.0-32.0); Mean Corpuscular Volume 95.3 fL (81-99); Mean Platelet Vol. 9.7 fl (6.2-12.0); Platelet Count 320 K/mm3 (150-450); RBC Distribution Width SD 48.2 fl (35.1-43.9); Red Blood Count 4.49 M/mm3 (4.2-5.4); White Blood Count 10.1 K/mm3 (4.4-11.0)
[2018-05-31 11:04] LABS: Scan Indicated on CBC? Y/N NO
[2018-05-31 11:07] LABS: Albumin, Serum 3.9 g/dL (3.2-5.0); BUN 39 mg/dL (7-18); BUN/Creat Ratio 24.7 RATIO (10-20); Calcium,Total 9.4 mg/dL (8.5-10.1); Chloride 102 mmol/L (98-107); Creatinine, Serum 1.58 mg/dL (0.55-1.02); EST Glomerular Filtration Rate 35 mL/min (>60); Est Glom Filt Rate - Afr Amer 42 mL/min (>60); Glucose 152 mg/dL (74-106); Magnesium 2.4 mg/dL (1.6-2.6); Phosphorus 3.5 mg/dL (2.5-4.9); Potassium 4.6 mmol/L (3.5-5.1); Sodium Level 136 mmol/L (136-145)
[2018-05-31 12:07] LABS: Vitamin D,25 Hydroxy 55.5 ng/mL (29.95-100.01)
[2018-05-31 12:08] LABS: PTHIN 65.4 pg/mL (18.4-80.1)
[2018-05-31 13:13] LABS: Microalbumin,Random Urine 5.4 mg/L (NO RANGE EST.); Microalbumin:Creatinine Ratio 4.8 mg/g CRE (<30 mg/g CRE)
== END ==
PROVIDERS: Family Provider Family Medicine; PCP Family Medicine; Visit Provider Internal Medicine Nephrology
DX: N18.3 Chronic kidney disease, stage 3 (moderate) (principal); E55.9 Vitamin D deficiency, unspecified; I25.10 Atherosclerotic heart disease of native coronary artery without angina pectoris; Z13.0 Encounter for screening for diseases of the blood and blood-forming organs and certain disorders involving the immune mechanism; Z95.5 Presence of coronary angioplasty implant and graft
CPT/HCPCS: 36415; 80069; 82043; 82306; 82570; 83735; 83970; 85027; 93798

== ENCOUNTER 2018-06-16 11:30 | Outpatient (RCR) | payer MEDICARE, OTHER, SELFPAY ==
[2018-03-28 12:55] VITALS: BMI 56.3
[2018-05-20 01:32] VITALS: BP 114/62; BP 138/70
--- NOTE | 2018-06-14 10:48 | CR.ITP_ITS ---
General Information - General Information Admitting Diagnosis: PCI S/P coronary artery stenting - Education/Goals Cardiac Rehabilitation Goals: 1. Maintain the individual as the primary focus of care. 2. To improve the patient's quality of life. 3. Identification of cardiac risk factors and provide cardiac risk factor management. 4. Enhance the psychosocial status of the patient. 5. Reconditioning enough to allow the patient to resume customary activities. 6. Control symptoms of cardiac disease Scale for measuring improvement of personal goals: Enter appropriate number in Comments. 2 = Unchanged. 3 = Slightly Better. 4 = Moderate Improvement. 5 = Met my Goal Exercise - 90-Day Assessment - Visit Date of Eval: 06/14/18 Session #:: 14 - Stages of Change Stages of Change:: Action - Exercise Prescription Mode:: Biodyne, NuStep Frequency (x/week): 3 Duration:: 30 METs: 3 Target Heart Rate:: 106-114 - Hypertension Resting Blood Pressure:: 120/68 Peak Exercise Blood Pressure:: 130/60 - Intervention Home Exercise/Activity Goal:: Sitting Time <3 hrs/day - Education Goals:: Warm-up, RPE EUGENIA Scale, S/S, Safe Exercise, Self-Monitoring - Exercise Program Goals Exercise Program Goals: Aerobic Activity >30 min, B/P <130/80 Nutrition - 90-Day Assessment - Program Goals Nutrition Program Goals: LDL <70. Total Cholesterol <200. HDL >45. Triglycerides <150. HgbA1C <7%. BMI <25 - Visit Date of Eval: 06/14/18 - Stages of Change Stages of Change:: Action - Diabetes Diabetes:: Yes - Weight Management Weight:: 134.263 kg - Intervention Referral to Diabetic Clinic:: Yes Will attend diet classes:: Yes - Education Attended class for:: Signs & symptoms of hypoglycemia, Signs & symptoms of hyperglycemia, Relate diabetes to coronary artery disease, Healthy eating Tobacco - 90-Day Assessment - Program Goals Tobacco Program Goals: Complete smoking cessation. Attend education classes. Improve Knowledge Test score - Stage of Change Stages of Change:: Action - Learning Barriers Learning Barriers: Participates in education - Family Support Do you have family support?: Yes - Tobacco Use Tobacco Use: Non-smoker Do you use smokeless tobacco?: No - Intervention Smoking Cessation Referral:: No Individual Education/Counseling:: No Education Schedule Given:: Yes - Education Attended class for:: Tobacco triggers, Coronary artery disease, Risk factors, Sexuality, Medical compliance, Cardiac A&P, Angina signs & symptoms Psychosocial - Initial Assess - Target Goals Target Goals: Assess presence or absence of depression. Using a valid screening tool, maximizes coping skills. Positive support system - Psychosocial Test Tool Used:: HANDS Depression Questionnaire - Assistive Devices Fall Risk Assessed:: Yes Psychosocial - 90-Day Assess - Target Goals Target Goals: Assess presence or absence of depression. Using a valid screening tool, maximizes coping skills. Positive support system - Stages of Change Stages of Change:: Action - Psychosocial Test Tool Used:: HANDS Depression Questionnaire - Intervention PS - Interventions: Yes Attend Stress Management Classes, Yes Uses Stress Management Skills, No Referral to Mental Health, No Referral to [facility] Case Manag ement, No Referral to Physician - Education Attended classes for:: Coping techniques, Signs & symptoms of depression, Stress management, Relaxation techniques - Assistive Devices Assistive Devices:: Cane Fall Risk Assessed:: Yes Patient Health Questionnaire 90-Day Re-eval Assessment 1. Little interest or pleasure in doing things: More than half the days 2. Feeling down, depressed, or hopeless: More than half the days 3. Trouble falling or staying asleep, or sleeping too much: Several days 4. Feeling tired or having little energy: Nearly every day 5. Poor appetite or overeating: Several days 6. Feeling bad about yourself -- or that you are a failure or have let yourself or your family down: Several days 7. Trouble concentrating on things, such as reading the newspaper or watching television: Several days 8. Moving or speaking so slowly that other people could have noticed. Or the opposite - being so fidgety or restless that you have been moving around a lot more than usual: Several days 9. Thoughts that you would be better off , or of hurting yourself in some way: Not at all How difficult have these problems made it for you to do your work, take care of things at home, or get along with other people?: Not difficult at all Total Score: 12 Self-Efficacy 90-Day Re-eval Assessment We would like to know how confident you are in doing certain activities. Please select your confidence level for:: Select your confidence level for the following using the scale 1-10 where 1 is not at all confident and 10 is totally confident. Your score is the average of all 6 responses. Fatigue: How confident are you that you can keep the fatigue caused by your disease from interfering with the things you want to do? Select Number: 1 Physical Discomfort or Pain: How confident are you that you can keep the physical discomfort or pain of your disease from interfering with the things you want to do? Select Number: 1 Emotional Distress: How confident are you that you can keep the emotional distress caused by your disease from interfering with the things you want to do? Select Number: 6 Other Symptoms or Health Problems: How confident are you that you can keep other symptoms or health problems from interfering with the things you want to do? Select Number: 1 Different Tasks and Activities: How confident are you that you can do the different tasks and activities needed to manage your health condition so as to reduce your need to see a doctor? Select Number: 6 Medication: How confident are you that you can do things other than just taking medication to reduce how much your illness affects your everyday life? Select Number: 6 Total Score:: 3
[2018-06-14 10:51] VITALS: BP 120/68; BP 130/60
== END 2018-06-18 23:59 ==
LOC: CR 11:30
PROVIDERS: Family Provider Family Medicine; PCP Family Medicine; Visit Provider Internal Medicine Cardiovascular Disease
DX: I25.10 Atherosclerotic heart disease of native coronary artery without angina pectoris (principal); Z95.5 Presence of coronary angioplasty implant and graft
CPT/HCPCS: 93798

== ENCOUNTER 2018-06-22 09:30 | Outpatient (RCR) | payer MEDICARE, OTHER, SELFPAY ==
[2018-03-28 12:55] VITALS: BMI 56.3
== END 2018-07-19 23:59 ==
LOC: DC 09:30
PROVIDERS: Family Provider Family Medicine; PCP Family Medicine; Visit Provider Internal Medicine Cardiovascular Disease
DX: E11.9 Type 2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without complications (principal); E66.9 Obesity, unspecified; N18.3 Chronic kidney disease, stage 3 (moderate); Z71.3 Dietary counseling and surveillance
CPT/HCPCS: 97803; G0109

== ENCOUNTER → 2018-07-04 06:22 | Outpatient (CLI) | payer MEDICARE, OTHER, SELFPAY ==
[2018-03-28 12:55] VITALS: BMI 56.3
--- NOTE | 2018-07-04 13:07 | STRESSREP_ITS ---
Stress Test Report Date: 07/04/2018 Procedure: Pharmacologic stress nuclear imaging study Indications: Chest pain; CAD; PCI Consent: Per the patient Procedure: The patient underwent pharmacologic (Regadenoson) evaluation with a peak heart rate of 72 beats per minute (47 predicted maximal heart rate) and a peak blood pressure of 120/64 mmHg. The baseline ECG demonstrated normal sinus rhythm. The peak pharmacologic ECG demonstrated no obvious ECG changes. There were no cardiac dysrhythmias pretest, during pharmacologic infusion, or recovery. There was no complaint of chest discomfort during pharmacologic infusion or recovery. The examination was discontinued secondary to completion of protocol. Impression: 1. Pharmacologic (Regadenoson) evaluation 2. Peak pharmacologic ECG with no obvious ECG change. 3. There were no cardiac dysrhythmias pretest, during pharmacologic infusion, or recovery. 4. Nuclear images pending Myocardial perfusion imaging study: Technique: The patient was injected with 14.9 millicuries of technetium 99m Cardiolite and subsequently rest SPECT Cardiolite nuclear imaging was obtained in the horizontal long, vertical long, and short axis views. The patient underwent pharmacologic (Regadenoson) evaluation with a peak heart rate of 72 beats per minute (47 % percent predicted maximal heart rate) and a peak blood pressure of 120/64 mmHg. The patient was injected with 44.8 millicuries of technetium 99m Cardiolite and subsequently stress SPECT Cardiolite nuclear imaging was obtained in the horizontal long, vertical long, and short axis views. A gated Cardiolite study at peak stress was obtained. Interpretation: Rest and stress SPECT Cardiolite nuclear imaging status post realignment, normalization, and attenuation correction demonstrate a small area of subtle diminished tracer uptake near the apical segments without significant change between rest and stress. There is end systolic thickening and brightening. The gated Cardiolite study demonstrates myocardial thickening and inward wall motion. The reported LVEF is 75 %. Impression: 1. Rest and stress SPECT Cardiolite nuclear imaging demonstrate myocardial perfusion changes appearing compatible with physiologic apical thinning with no myocardial perfusion changes considered diagnostic for associated stress-induced myocardial ischemia or previous myocardial injury/infarction. 2. The gated Cardiolite study reports an LVEF of 75 %. This note was generated with [employer] software. It may contain incorrect words, spelling, and punctuation that were not noted in checking the note before signing.
== END ==
PROVIDERS: Family Provider Family Medicine; PCP Family Medicine; Referring Provider Nurse Practitioner Family; Visit Provider Nurse Practitioner Family
DX: I25.10 Atherosclerotic heart disease of native coronary artery without angina pectoris (principal); I10 Essential (primary) hypertension; R07.9 Chest pain, unspecified; Z95.5 Presence of coronary angioplasty implant and graft
CPT/HCPCS: 78452; 93017; A9500; A4216; J2785

== ENCOUNTER 2018-07-19 11:30 | Outpatient (RCR) | payer MEDICARE, OTHER, SELFPAY ==
[2018-03-28 12:55] VITALS: BMI 56.3
[2018-06-19 01:09] VITALS: BP 120/68; BP 130/60
--- NOTE | 2018-07-14 09:18 | PCM.CR.ITP ---
Exercise - Final/Discharge - Visit Date of Eval: 07/14/18 Session #:: 30 - Stages of Change Stages of Change:: Action - Exercise Prescription Mode:: Biodyne, NuStep Frequency (x/week): 3 Duration:: 35 METs: 3 patient has reached maximum level of exercise due to joint pain Target Heart Rate:: 106-114 - Hypertension Do any of the following apply?: Yes Resting Blood Pressure:: 104/60 Peak Exercise Blood Pressure:: 138/60 - Intervention Home Exercise/Activity Goal:: Moderate Exercise 30 min/day x 5 days/wk - Education Goal Progress: Goal Met - Exercise Program Goals Exercise Program Goals: Aerobic Activity >30 min Tobacco - Final Assessment - Program Goals Tobacco Program Goals: Complete smoking cessation. Attend education classes. Improve Knowledge Test score - Stage of Change Stages of Change:: Action - Family Support Do you have family support?: Yes - Tobacco Use Tobacco Use: Non-smoker Do you use smokeless tobacco?: No - Intervention Smoking Cessation Referral:: No Individual Education/Counseling:: No Education Schedule Given:: Yes - Education Education Goal Reached?: No Psychosocial - Initial Assess - Target Goals Target Goals: Assess presence or absence of depression. Using a valid screening tool, maximizes coping skills. Positive support system - Psychosocial Test Tool Used:: HANDS Depression Questionnaire - Assistive Devices Fall Risk Assessed:: Yes Psychosocial - Final Assessmen - Target Goals Target Goals: Assess presence or absence of depression. Using a valid screening tool, maximizes coping skills. Positive support system - Stages of Change Stages of Change:: Action - Psychosocial Test Tool Used:: HANDS Depression Questionnaire - Intervention PS - Interventions: Yes Attend Stress Management Classes, Yes Uses Stress Management Skills, No Referral to Mental Health, No Referral to [facility] Case Management, No Referral to Physician - Education Education Goal Reached?: Yes - Patient/Program Goal Preventative Medication(s):: Aspirin, Clopidogrel, Beta geovanna, Statin/lipid - Assistive Devices Assistive Devices:: None Fall Risk Assessed:: Yes Patient Health Questionnaire Discharge Assessment 1. Little interest or pleasure in doing things: Not at all 2. Feeling down, depressed, or hopeless: Not at all 3. Trouble falling or staying asleep, or sleeping too much: Not at all 4. Feeling tired or having little energy: Not at all 5. Poor appetite or overeating: Not at all 6. Feeling bad about yourself -- or that you are a failure or have let yourself or your family down: Not at all 7. Trouble concentrating on things, such as reading the newspaper or watching television: Not at all 8. Moving or speaking so slowly that other people could have noticed. Or the opposite - being so fidgety or restless that you have been moving around a lot more than usual: Not at all 9. Thoughts that you would be better off , or of hurting yourself in some way: Not at all Total Score: 0 CHANDRIKA-Q SV Test - Statements CAD is a disease of the arteries in the heart: False Examples of risk factors for heart disease: True Angina is chest pain or discomfort: True The benefits of resistance training include: True Eating more meat and dairy products: False Anti-platelet medications such as aspirin are important: True The only effective way to manage stress: False An exercise warm-up slowly increases heart rate: True Prepared, processed foods usually have high sodium: True Depression is common after a heart attack: True The statin medications lower cholesterol: True To control blood pressure, lower the amount of sodium: True If someone gets chest discomfort during walking: False Transfats are partially hydrogenated vegetable oils: True Sleep apnea that is not treated increases the risk: False To control cholesterol, one should become a vegetarian: False Someone knows if he/she is exercising at the right level: True Diabetes cannot be prevented with exercise & health eating: False Stress is a large risk for heart attack: True A diet that can help lower blood pressure is rich in: True - Total Score Total Correct Responses: 20 Self-Efficacy Discharge Assessment We would like to know how confident you are in doing certain activities. Please select your confidence level for:: Select your confidence level for the following using the scale 1-10 where 1 is not at all confident and 10 is totally confident. Your score is the average of all 6 responses. Fatigue: How confident are you that you can keep the fatigue caused by your disease from interfering with the things you want to do? Select Number: 9 Physical Discomfort or Pain: How confident are you that you can keep the physical discomfort or pain of your disease from interfering with the things you want to do? Select Number: 10 Emotional Distress: How confident are you that you can keep the emotional distress caused by your disease from interfering with the things you want to do? Select Number: 9 Other Symptoms or Health Problems: How confident are you that you can keep other symptoms or health problems from interfering with the things you want to do? Select Number: 10 Different Tasks and Activities: How confident are you that you can do the different tasks and activities needed to manage your health condition so as to reduce your need to see a doctor? Select Number: 10 Medication: How confident are you that you can do things other than just taking medication to reduce how much your illness affects your everyday life? Select Number: 10 Total Score:: 9 Nutrition Survey - Nutrition Survey Instructions Scoring Instructions: Scoring is as follows: Yes = 1 points. No = 0 point. Patient score that is >/=12 is considered to be at potential nutritional risk and could benefit from a referral to a registered dietitian. - Nutrition Survey Discharge Have you lost >10 lbs over the past 2 months without trying?: No Are you following a special diet at home for diabetes, low fat, or low salt?: No Are you interested in meeting with a dietitian for help understanding your diet?: No Do you eat less than 3 meals a day?: No Do you eat fatty meats (valencia, sausage, ribs, etc), fried foods, desserts, large amounts of salad dressings, margarine, butter, or cheese most days?: No Do you have food allergies? [Enter types in comment field]: No Do you eat in restaurants more than 3 times a week?: No Do you season food with salt, seasoning salt, or garlic salt?: No Do you used canned, boxed, frozen meals, or soups, seasoning packets?: No Total Score:: 0
[2018-07-14 09:24] VITALS: BP 104/60; BP 138/60
== END 2018-07-19 23:59 ==
LOC: CR 11:30
PROVIDERS: Family Provider Family Medicine; PCP Family Medicine; Referring Provider Internal Medicine Cardiovascular Disease; Visit Provider Internal Medicine Cardiovascular Disease
DX: I25.10 Atherosclerotic heart disease of native coronary artery without angina pectoris (principal); Z95.5 Presence of coronary angioplasty implant and graft; E11.9 Type 2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without complications; E66.9 Obesity, unspecified; N18.3 Chronic kidney disease, stage 3 (moderate); Z71.3 Dietary counseling and surveillance
CPT/HCPCS: 93798; 97803

== ENCOUNTER 2018-07-26 11:30 | Outpatient (RCR) | payer MEDICARE, OTHER, SELFPAY ==
[2018-03-28 12:55] VITALS: BMI 56.3
[2018-07-20 01:10] VITALS: BP 104/60; BP 138/60
== END 2018-07-28 11:41 | disposition home or self-care (01) ==
LOC: CR 11:30
PROVIDERS: Family Provider Family Medicine; PCP Family Medicine; Referring Provider Internal Medicine Cardiovascular Disease; Visit Provider Internal Medicine Cardiovascular Disease
DX: I25.10 Atherosclerotic heart disease of native coronary artery without angina pectoris (principal); Z95.5 Presence of coronary angioplasty implant and graft
CPT/HCPCS: 93798

== ENCOUNTER → 2018-08-22 07:01 | Outpatient (CLI) | payer MEDICARE, OTHER, SELFPAY ==
[2018-03-28 12:55] VITALS: BMI 56.3
[2018-08-22 08:21] LABS: Hematocrit 40.9 % (37-47); Hemoglobin 13.2 g/dl (12.0-15.0); Mean Corp Hgb Conc 32.3 g/gl (32-36); Mean Corpuscular Hgb 30.9 pg (27.0-32.0); Mean Corpuscular Volume 95.8 fL (81-99); Mean Platelet Vol. 9.5 fl (6.2-12.0); Platelet Count 274 K/mm3 (150-450); RBC Distribution Width CV 13.9 % (11.6-14.6); RBC Distribution Width SD 47.6 fl (35.1-43.9); Red Blood Count 4.27 M/mm3 (4.2-5.4); Scan Indicated on CBC? Y/N NO
[2018-08-22 09:24] LABS: ALB/GLOB Ratio 1.2 RATIO (0.9-2.4); AST(SGOT) 19 U/L (15-37); Alanine Aminotransfer ALT/SGPT 22 U/L (13-56); Albumin, Serum 3.9 g/dL (3.2-5.0); Alkaline Phosphatase 92 U/L (45-117); Anion Gap 9 (5-15); BUN 49 mg/dL (7-18); BUN/Creat Ratio 25.8 RATIO (10-20); Chloride 104 mmol/L (98-107); Cholesterol 188 mg/dL (200); EST Glomerular Filtration Rate 28 mL/min (>60); Est Glom Filt Rate - Afr Amer 34 mL/min (>60); Globulin 3.2 g/dL (2.2-4.2); Glucose 87 mg/dL (74-106); High Density Lipoprotein 42 mg/dL; Magnesium 2.3 mg/dL (1.6-2.6); Potassium 4.4 mmol/L (3.5-5.1); Protein, Total 7.1 g/dL (6.4-8.2); Sodium Level 140 mmol/L (136-145); Triglycerides 185 mg/dL; Uric Acid 6.9 mg/dL (2.6-6.0); Very Low Density Lipoprotein 37 mg/dL (5-40)
[2018-08-22 10:10] LABS: Hemoglobin A1c 5.6 % (4.2-6.3)
[2018-08-22 10:12] LABS: PTHIN 87.2 pg/mL (18.4-80.1); Vitamin D,25 Hydroxy 52.1 ng/mL (29.95-100.01)
[2018-08-22 10:55] LABS: Microalbumin,Random Urine < 5.0 mg/L (NO RANGE EST.)
== END ==
PROVIDERS: Family Provider Family Medicine; PCP Family Medicine; Referring Provider Internal Medicine Nephrology; Visit Provider Internal Medicine Nephrology
DX: E11.22 Type 2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with diabetic chronic kidney disease (principal); N18.4 Chronic kidney disease, stage 4 (severe); E55.9 Vitamin D deficiency, unspecified; M10.9 Gout, unspecified; Z13.0 Encounter for screening for diseases of the blood and blood-forming organs and certain disorders involving the immune mechanism
CPT/HCPCS: 36415; 80053; 80061; 82043; 82306; 82570; 83036; 83735; 83970; 84550; 85027

== ENCOUNTER → 2018-08-29 14:00 | Outpatient (CLI) | payer MEDICARE, OTHER, SELFPAY ==
[2018-03-28 12:55] VITALS: BMI 56.3
[2018-08-29 15:53] LABS: Absolute Lymphocyte Count 1.85 X10^3/ul (0.83-4.51); Absolute Neutrophil Count 4.4 X10^3/uL (2.0-7.7); Basophil# 0.04 X10^3/uL; Basophil% 0.6 % (0-1); Eosinophil# 0.22 X10^3/uL; Eosinophils% 3.1 % (0-5); Hematocrit 42.8 % (37-47); Hemoglobin 13.8 g/dl (12.0-15.0); Lymphocyte # 1.85 X10^3/ul (4.0); Lymphocyte % 26.1 % (19-41); Mean Corp Hgb Conc 32.2 g/gl (32-36); Mean Corpuscular Hgb 30.8 pg (27.0-32.0); Mean Corpuscular Volume 95.5 fL (81-99); Mean Platelet Vol. 9.4 fl (6.2-12.0); Monocyte# 0.62 X10^3/uL; Monocyte% 8.7 % (0-10); Neutrophil # 4.35 X10^3/uL (2.7-7.7); Neutrophil % 61.2 % (47-70); Platelet Count 282 K/mm3 (150-450); RBC Distribution Width CV 13.9 % (11.6-14.6); RBC Distribution Width SD 46.8 fl (35.1-43.9); Red Blood Count 4.48 M/mm3 (4.2-5.4); White Blood Count 7.1 K/mm3 (4.4-11.0)
[2018-08-29 16:06] LABS: POSITIVE COUNT NO; POSITIVE DIFFERENTIAL NO; POSITIVE MORPHOLOGY NO
[2018-08-29 16:33] LABS: Anion Gap 8 (5-15); BUN 31 mg/dL (7-18); BUN/Creat Ratio 19.3 RATIO (10-20); Calcium,Total 9.6 mg/dL (8.5-10.1); Chloride 103 mmol/L (98-107); Creatinine, Serum 1.61 mg/dL (0.55-1.02); EST Glomerular Filtration Rate 34 mL/min (>60); Est Glom Filt Rate - Afr Amer 41 mL/min (>60); Glucose 76 mg/dL (74-106); Potassium 4.5 mmol/L (3.5-5.1); Sodium Level 138 mmol/L (136-145)
[2018-08-29 16:44] LABS: Vitamin B12 460 pg/mL (211-911)
--- OUTSIDE RECORDS SUMMARY | 2018-10-15 18:59 | XMS RPT_ITS ---
:1950 Author Organization [facility] Support Name Relationship Address Phone GAMEZ, LUCAS Unavailable [address] + [place] [address] R Unavailable Unavailable Unavailable SELBRIAN MATEO Unavailable [address] + [place] [address] LUCAS GAMEZ Unavailable [address] + [place] [address] R Unavailable Unavailable Unavailable JESSICA MATEO Unavailable [address] + [place] [address] LUCAS GAMEZ Unavailable [address] + [place] [address] R Unavailable Unavailable Unavailable SELBRIAN MATEO Unavailable [address] + [place] [address] LUCAS GAMEZ Unavailable [address] + [place] [address] R Unavailable Unavailable Unavailable JESSICA MATEO Unavailable [address] + [place] [address] LEXUS GAMEZTINA Unavailable [address] + [place] [address] R Unavailable Unavailable Unavailable SELBRIAN MATEO Unavailable [address] + [place] [address] LEXUS GAMEZTINA Unavailable [address] + [place] [address] R Unavailable Unavailable Unavailable JESSICA MATEO Unavailable [address] + [place] [address] LEXUS GAMEZTINA Unavailable [address] + [place] [address] R Unavailable Unavailable Unavailable SELZER, MATEO Unavailable [address] + [place] [address] GAMEZ, LUCAS Unavailable [address] + [place] [address] R Unavailable Unavailable Unavailable SELZER, MATEO Unavailable [address] + [place] [address] GAMEZ, LUCAS Unavailable [address] + [place] [address] R Unavailable Unavailable Unavailable SELZER, MATEO Unavailable [address] + [place] [address] GAMEZ, LUCAS Unavailable [address] + [place] [address] R Unavailable Unavailable Unavailable MACYZER MATEO Unavailable [address] + [place] [address] GAMEZ, LUCAS Unavailable [address] + [place] [address] R Unavailable Unavailable Unavailable SELZER MATEO Unavailable [address] + [place] [address] GAMEZ, LUCAS Unavailable [address] + [place] [address] R Unavailable Unavailable Unavailable MACYZER MATEO Unavailable [address] + [place] [address] GAMEZ, LUCAS Unavailable [address] + [place] [address] R Unavailable Unavailable Unavailable SELZER, MATEO Unavailable [address] + [place] [address] GAMEZ, LUCAS Unavailable [address] + [place] [address] R Unavailable Unavailable Unavailable SELZER, MATEO Unavailable [address] + [place] [address] GAMEZ, LUCAS Unavailable [address] + [place] [address] R Unavailable Unavailable Unavailable SELZER, MATEO Unavailable [address] + [place] [address] GAMEZ, LUCAS Unavailable [address] + [place] [address] R Unavailable Unavailable Unavailable MATEO LOPEZ Unavailable [address] + [place] [address] GAMEZ, LUCAS Unavailable [address] + [place] [address] R Unavailable Unavailable Unavailable MATEO LOPEZ Unavailable [address] + [place] [address] GAMEZ, LUCAS Unavailable [address] + [place] [address] R Unavailable Unavailable Unavailable MATEO LOPEZ Unavailable [address] + [place] [address] GAMEZ, LUCAS Unavailable [address] + [place] [address] R Unavailable Unavailable Unavailable MATEO LOPEZ Unavailable [address] + [place] [address] GAMEZ, LUCAS Unavailable [address] + [place] [address] R Unavailable Unavailable Unavailable MATEO LOPEZ Unavailable [address] + [place] [address] GAMEZ, LUCAS Unavailable [address] + [place] [address] R Unavailable Unavailable Unavailable MATEO LOPEZ Unavailable [address] + [place] [address] GAMEZ, LUCAS Unavailable [address] + [place] [address] R Unavailable Unavailable Unavailable MATEO LOPEZ Unavailable [address] + [place] [address] GAMEZ, LUCAS Unavailable [address] + [place] [address] R Unavailable Unavailable Unavailable MATEO LOPEZ Unavailable [address] + [place] [address] GAMEZ, LUCAS Unavailable [address] + [place] [address] R Unavailable Unavailable Unavailable MATEO LOPEZ Unavailable [address] + [place] [address] GAMEZ, LUCAS Unavailable [address] + [place] [address] R Unavailable Unavailable Unavailable MATEO LOPEZ Unavailable [address] + [place] [address] GAMEZ, LUCAS Unavailable [address] + [place] [address] R Unavailable Unavailable Unavailable MATEO LOPEZ Unavailable [address] + [place] [address] GAMEZ, LUCAS Unavailable [address] + [place] [address] R Unavailable Unavailable Unavailable MATEO LOPEZ Unavailable [address] + [place] [address] GAMEZ, LUCAS Unavailable [address] + [place] [address] R Unavailable Unavailable Unavailable MATEO LOPEZ Unavailable [address] + [place] [address] AGMEZ, LUCAS Unavailable [address] + [place] [address] R Unavailable Unavailable Unavailable MATEO LOPEZ Unavailable [address] + [place] [address] GAEMZ, LUCAS Unavailable [address] + [place] [address] R Unavailable Unavailable Unavailable MATEO LOPEZ Unavailable [address] + [place] [address] GAMEZ, LUCAS Unavailable [address] + [place] [address] R Unavailable Unavailable Unavailable MATEO LOPEZ Unavailable [address] + [place] [address] GAMEZ, LUCAS Unavailable [address] + [place] [address] R Unavailable Unavailable Unavailable SELBRIAN MATEO Unavailable [address] + [place] [address] GAMEZ, LUCAS Unavailable [address] + [place] [address] R Unavailable Unavailable Unavailable SELZER MATEO Unavailable [address] + [place] [address] GAMEZ, LUCAS Unavailable [address] + [place] [address] R Unavailable Unavailable Unavailable SELZER MATEO Unavailable [address] + [place] [address] GAMEZ LUCAS Unavailable [address] + [place] [address] R Unavailable Unavailable Unavailable SELBRIAN MATEO Unavailable [address] + [place] [address] GAMEZ LUCAS Unavailable [address] + [place] [address] R Unavailable Unavailable Unavailable SELBRIAN MATEO Unavailable [address] + [place] [address] Care Team Providers Name Role Phone Sachin Almanza Attending Unavailable Sachin Almanza Primary Care Unavailable Sachin Almanza Referring Unavailable Kevon Ling Consulting Unavailable Tanphaichitr, Natthavat Attending Unavailable Tanphaichitr, Natthavat Referring Unavailable Archie, Sachin Primary Care Unavailable Lainey Santoyo Consulting Unavailable Sachin Almanza Attending Unavailable Sachin Almanza Referring Unavailable Archie, Sachin Primary Care Unavailable Kevon Moon Attending Unavailable Kevon Moon Referring Unavailable Archie, Sachin Primary Care Unavailable Franklyn Abbott Attending Unavailable Sachin Almanza Referring Unavailable Eulalio Sarmiento Attending Unavailable Sachin Almanza Referring Unavailable Sachin Almanza Attending Unavailable Sachin Almanza Referring Unavailable Archie, Sachin Primary Care Unavailable Sherrie Goldsmith Attending Unavailable Franklyn Abbott Attending Unavailable Sachin Almanza Referring Unavailable Archie, Sachin Primary Care Unavailable MoodispaFranklyn chen Attending Unavailable MoodispaFranklyn chen Referring Unavailable Archie, Sachin Primary Care Unavailable MoodisFranklyn washington Attending Unavailable MoodispaFranklyn chen Referring Unavailable Archie, Sachin Primary Care Unavailable MoodispaFranklyn chen Attending Unavailable MoodispaFranklyn chen Referring Unavailable Archie, Sachin Primary Care Unavailable MoodispaFranklyn chen Attending Unavailable MoodispaFranklyn chen Referring Unavailable Archie, Sachin Primary Care Unavailable MoodisFranklyn washing[place] Consulting Tiera Marlow Attending Unavailable MoodispaFranklyn chen Attending Unavailable MoodispaFranklyn chen Referring Unavailable Archie, Sachin Primary Care Unavailable Moodispadmini, Franklyn Attending Unavailable MoodisFranklyn washington Referring Unavailable Archie, Sachin Primary Care Unavailable MoodisFranklyn washington Attending Unavailable MoodisFranklyn washington Referring Unavailable Archie, Sachin Primary Care Unavailable Kristina, Art Aparicio Attending Unavailable Archie, Sachin Referring Unavailable Archie, Sachin Primary Care Unavailable MoodFranklyn luevano Attending Unavailable MoodisFranklyn washington Referring Unavailable Archie, Sachin Primary Care Unavailable MoodisFranklyn washington Attending Unavailable MoodisFranklyn [place]ton Attending Unavailable Lainey Santoyo Attending Unavailable Archie, Sachin Primary Care Unavailable MoodisFranklyn washington Attending Unavailable MoodisFranklyn washington Referring Unavailable MoodispaFranklyn chen Attending Unavailable Archie, Sachin Primary Care Unavailable MoodisFranklyn washington Attending Unavailable MoodFranklyn luevano Referring Unavailable Archie, Sachin Primary Care Unavailable MoodFranklyn luevano Attending Unavailable ArchieSachin Primary Care Unavailable Travis Newby Attending Unavailable Archie, Sachin Referring Unavailable Archie, Sachin Primary Care Unavailable Tanphaichitr, Natthavat Attending Unavailable Tanphaichitr Natthchristinat Referring Unavailable Archie, Sachin Primary Care Unavailable MoodisFranklyn washington Attending Unavailable MoodisFranklyn washington Referring Unavailable Archie, Sachin Primary Care Unavailable MoodispaFranklyn chen Attending Unavailable Archie, Sachin Primary Care Unavailable Roof, Art Aparicio Attending Unavailable Archie, Sachin Referring Unavailable RoofArt Attending Unavailable Art Acevedo Referring Unavailable Archie, Sachin Primary Care Unavailable MoodisFranklyn washington Attending Unavailable MoodispaFranklyn chen Referring Unavailable Archie, Sachin Primary Care Unavailable MoodispaFranklyn chen Attending Unavailable Archie, Sachin Primary Care Unavailable MoyFranklyn Attending Unavailable Art Acevedo Referring Unavailable Tanphaichitr, Natthavat Attending Unavailable Tanphaichifaraz, Natthavat Referring Unavailable Archie Sachin Primary Care Unavailable Lainey Santoyo Consulting Unavailable PROBLEMS PROBLEMS DATE TYPE CONDITION / CODE ATTENDING STATUS SOURCE 09/27/2018 Unknown E11.9 - Type 2 DonaldtreeFranklyn chen Active [place]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Community without complications Hospital / E11.9(ICD-10) Repository 08/29/2018 Unknown R19.5 - Other fecal Sachin Almanza Active [place] abnormalities / Community R19.5(ICD-10) Hospital Repository 08/29/2018 Unknown R53.83 - Other Sachin Almanza Active [place] fatigue / Community R53.83(ICD-10) Hospital Repository 07/28/2018 Unknown I25.10 - DonaldtreeFranklyn chen Active [place] Atherosclerotic heart Community disease of [facility] coronary artery Repository without angina pectoris / I25.10(ICD-10) 05/31/2018 Unknown N18.3 - Chronic Tanphaichitr, Active [place] kidney disease, stage [facility] 3 (moderate) / Hospital N18.3(ICD-10) Repository 05/31/2018 Unknown Z13.0 - Encounter for Tanphaichitr, Active [place] screening for [facility] diseases of the [facility] and blood-forming Repository organs and certain disorders involving the immune mechanism / Z13.0(ICD-10) 05/31/2018 Unknown E55.9 - Vitamin D Tanphaichitr, Active [place] [facility] E55.9(ICD-10) Repository 04/07/2018 Unknown Z95.5 - Presence of Donaldtreegustavo Franklyn Active [place] coronary angioplasty Community implant and graft / Hospital Z95.5(ICD-10) Repository 03/29/2018 Unknown R06.02 - Shortness of Donaldtreegustavo Franklyn Active [place] breath / Community R06.02(ICD-10) Hospital Repository 03/29/2018 Unknown I10 - Essential SaadiaFranklyn luevano Active [place] (primary) Community hypertension / Hospital I10(ICD-10) Repository 05/10/2018 Unknown R94.39 - Abnormal MoodlisaFranklyn washington Active [place] result of other [facility] cardiovascular Hospital function study / Repository R94.39(ICD-10) 03/23/2018 Unknown M17.11 - Unilateral Kevon Moon Active [place] primary Community osteoarthritis, right Hospital knee / M17.11(ICD-10) Repository 03/16/2018 Unknown E78.5 - Franklyn Abbott Active [place] Hyperlipidemia, Community unspecified / Hospital E78.5(ICD-10) Repository 03/16/2018 Unknown N28.9 - Disorder of Franklyn Abbott Active [place] kidney and ureter, Community unspecified / Hospital N28.9(ICD-10) Repository 03/15/2018 Unknown M79.604 - Pain in Sachin Almanza Active [place] right leg / Community M79.604(ICD-10) Hospital Repository 11/08/2017 Unknown 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, Active [place]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[facility] with diabetic chronic Hospital kidney disease / Repository E11.22(ICD-10) 11/08/2017 Unknown M10.9 - Gout, Tanphaichitr, Active [place] unspecified [facility] M10.9(ICD-10) Hospital Repository PROCEDURES PROCEDURES No Procedure Records FoundRESULTS RESULTS CBC W/DIFF, AUTOMATED Collected: 08/29/2018 Status: F Source: [place] 2:04 PM [facility] TYPE CODE TESTS RESULT OUT OF RANGE REFERENCE UNITS LAB L100.1000 4.4-11.0 K/mm3 Normal WBC 7.1 LAB L100.1200 4.2-5.4 M/mm3 Normal RBC 4.48 LAB L100.1300 12.0-15.0 g/dl Normal HGB 13.8 LAB L100.1400 37-47 % Normal HCT 42.8 LAB L100.1500 81-99 fL Normal MCV 95.5 LAB L100.1600 27.0-32.0 pg Normal MCH 30.8 LAB L100.1700 32-36 g/gl Normal MCHC 32.2 LAB L100.1810 11.6-14.6 % Normal RDW CV 13.9 LAB L100.1820 35.1-43.9 fl High RDW SD 46.8 LAB L100.1900 150-450 K/mm3 Normal PLT 282 LAB L100.2000 6.2-12.0 fl Normal MPV 9.4 LAB L100.2100 47-70 % Normal NEUT% 61.2 LAB L100.2200 19-41 % Normal LY% 26.1 LAB L100.2300 0-10 % Normal MONO% 8.7 LAB L100.2400 0-5 % Normal EO% 3.1 LAB L100.2500 0-1 % Normal BASO% 0.6 LAB L100.2550 0.0-0.9 % Normal IM GRAN % 0.300 Result Comment: IG% - Immature Granulocytes (promyelocytes, myelocytes and metamyelocytes) > 1% indicates that a LEFT SHIFT is Present. LAB L100.2620 2.0-7.7 X10 3/uL Normal Absolute Neut 4.4 LAB L100.2720 0.83-4.51 X10 3/ul Normal Absolute Lymph 1.85 Performed By: #### L100.0100 #### [facility] [address] [place], [address] BASIC METABOLIC Collected: 08/29/2018 Status: F Source: [place] PROFILE (BMP) 2:04 PM [facility] REPOSITORY TYPE CODE TESTS RESULT OUT OF RANGE REFERENCE UNITS LAB L501.0100 74-106 mg/dL Normal GLU 76 Result Comment: Please note revised GLUCOSE reference range effective 2017. LAB L501.1000 7-18 mg/dL High BUN 31 LAB L501.1100 0.55-1.02 mg/dL High CREAT,SERUM 1.61 Result Comment: The validity of the calculated GFR AND GFRAA in patients over 70 years has not been determined. Clinical correlation is essential. LAB L501.1110 >60 mL/min Low EST GFR 34 Result Comment: Non- GFR Calc LAB L501.1115 >60 mL/min Low EST GFR - AA 41 Result Comment: GFR Calc LAB L501.1300 10-20 RATIO Normal BUN/CRE 19.3 LAB L501.2200 8.5-10.1 mg/dL CA Normal 9.6 LAB L501.5300 136-145 mmol/L NA Normal 138 LAB L501.5600 3.5-5.1 mmol/L K Normal 4.5 LAB L501.5900 98-107 mmol/L CL Normal 103 LAB L501.6100 21.0-32.0 mmol/L Normal CO2 27.0 LAB L501.6200 5-15 Normal GAP 8 Performed By: #### L500.2500 #### [facility] [address] [place], [address] VITAMIN B12 Collected: 08/29/2018 Status: F Source: [place] 2:04 PM [facility] REPOSITORY TYPE CODE TESTS RESULT OUT OF RANGE REFERENCE UNITS LAB L503.0105 211-911 pg/mL Normal Vitamin B12 460 Performed By: #### L503.0105 #### [facility] [address] [place], [address] Observed: 08/29/2018 Status: F Source: [place] CULTURE, NOSE 1:15 PM [facility] REPOSITORY Comments: YEAST CHECK Gram Stain Gram Stain Rare Epithelial cells Rare White Blood Cells No organisms seen Nasoph. Cult No Haemophilus, yeast, Streptococcus pneumoniae, or beta-hemolytic Streptococcus isolated. ORGANISM 1: Staphylococcus aureus Amount Growth 1+ Staphylococcus aureus: REACTION Benzylpenicillin NF >=0.5 R Cefoxitin *NF - Clindamycin $$ <=0.25 S Inducable Clindamycin Resistan - Erythromycin $ <=0.25 S Gentamicin $ <=0.5 S Levofloxacin $ 0.25 S Linezolid $$$$ 2 S Moxifloxicin *NF <=0.25 S Oxacillin NF 0.5 S Tigecycline $$$$ <=0.12 S Rifampin $$ <=0.5 S Tetracycline NF <=1 S Trimethoprim/Sulfametho $ <=10 S Vancomycin $ <=0.5 S (NF) indicates non-formulary drug at [facility]. Approval by Infectious Disease Specialist required before non-formulary drugs may be ordered and/or dispensed. * CLSI guidelines does not recommend testing of cephalosporins. This interpretation is deduced from Beta-lactam/penicillin results. Performed By: #### M100.0900 #### [facility] [address] [place], [address] CBC-COMPLETE BLOOD CNT Collected: 08/22/2018 Status: F Source: [place] NO DIFF 7:06 AM [facility] REPOSITORY Order Comment: CMP,A1C,LIPID,VITD FOR DR SANTOYO PTH,MIACRE,MG,RENAL,VITD,CBC,URIC FOR DR BAUMAN TYPE CODE TESTS RESULT OUT OF RANGE REFERENCE UNITS LAB L100.1000 4.4-11.0 K/mm3 Normal WBC 6.0 LAB L100.1200 4.2-5.4 M/mm3 Normal RBC 4.27 LAB L100.1300 12.0-15.0 g/dl Normal HGB 13.2 LAB L100.1400 37-47 % Normal HCT 40.9 LAB L100.1500 81-99 fL Normal MCV 95.8 LAB L100.1600 27.0-32.0 pg Normal MCH 30.9 LAB L100.1700 32-36 g/gl Normal MCHC 32.3 LAB L100.1810 11.6-14.6 % Normal RDW CV 13.9 LAB L100.1820 35.1-43.9 fl High RDW SD 47.6 LAB L100.1900 150-450 K/mm3 Normal PLT 274 LAB L100.2000 6.2-12.0 fl Normal MPV 9.5 Performed By: #### L100.0500 #### [facility] [address] [place], [place], [address] COMPREHENSIVE METABOLIC Collected: 08/22/2018 Status: F Source: [facility] 7:06 AM [facility] REPOSITORY Order Comment: CMP,A1C,LIPID,VITD FOR DR SANTOYO PTH,MIACRE,MG,RENAL,VITD,CBC,URIC FOR DR BAUMAN TYPE CODE TESTS RESULT OUT OF RANGE REFERENCE UNITS LAB L501.0100 74-106 mg/dL Normal GLU 87 Result Comment: Please note revised GLUCOSE reference range effective 2017. LAB L501.1000 7-18 mg/dL High BUN 49 LAB L501.1100 0.55-1.02 mg/dL High CREAT,SERUM 1.90 Result Comment: The validity of the calculated GFR AND GFRAA in patients over 70 years has not been determined. Clinical correlation is essential. LAB L501.1110 >60 mL/min Low EST GFR 28 Result Comment: Non- GFR Calc LAB L501.1115 >60 mL/min Low EST GFR - AA 34 Result Comment: GFR Calc LAB L501.1300 10-20 RATIO High BUN/CRE 25.8 LAB L501.1500 6.4-8.2 g/dL T Normal PROT 7.1 LAB L501.1800 3.2-5.0 g/dL Normal ALB 3.9 LAB L501.1950 2.2-4.2 g/dL Normal GLOB 3.2 LAB L501.2000 0.9-2.4 RATIO Normal A/G 1.2 LAB L501.2200 8.5-10.1 mg/dL CA Normal 9.0 LAB L501.4100 15-37 U/L Normal AST 19 LAB L501.4305 45-117 U/L Normal ALK P 92 LAB L501.4405 13-56 U/L Normal ALT 22 LAB L501.4600 0.20-1.00 mg/dL T Normal BILI 0.40 LAB L501.5300 136-145 mmol/L NA Normal 140 LAB L501.5600 3.5-5.1 mmol/L K Normal 4.4 LAB L501.5900 98-107 mmol/L CL Normal 104 LAB L501.6100 21.0-32.0 mmol/L Normal CO2 27.0 LAB L501.6200 5-15 Normal GAP 9 Performed By: #### L500.4050, L500.4100, L501.1400, L501.5200 #### [facility] [address] [place], [address] LIPID PROFILE Collected: 08/22/2018 Status: F Source: [place] 7:06 AM [facility] REPOSITORY Order Comment: CMP,A1C,LIPID,VITD FOR DR SANTOYO PTH,MIACRE,MG,RENAL,VITD,CBC,URIC FOR DR BAUMAN TYPE CODE TESTS RESULT OUT OF RANGE REFERENCE UNITS LAB L501.4900 200 mg/dL Normal CHOL 188 Result Comment: <200 mg/dL Desirable 200-240 mg/dL Borderline >240 mg/dL High Risk LAB L501.5000 mg/dL Normal TRIG 185 Result Comment: The drugs N-Acetylcysteine and Metamizole may falsely depress this assay. Serum Triglycerides Reference Interval Normal <150 mg/dL Borderline high 150 - 199 mg/dL High 200 - 499 mg/dL Very High > or = 500 mg/dL LAB L501.6400 mg/dL Normal HDL 42 Result Comment: The drugs N-Acetylcysteine and Metamizole may falsely depress this assay. Reference Range HDL <40 mg/dL Low HDL Cholesterol HDL >or= 60 mg/dL High HDL Cholesterol LAB L501.6500 0-130 mg/dL Normal LDL 109 LAB L501.6600 5-40 mg/dL Normal VLDL 37 Performed By: #### L500.4050, L500.4100, L501.1400, L501.5200 #### [facility] [address] [place], [address] URIC ACID Collected: 08/22/2018 Status: F Source: [place] 7:06 AM [facility] REPOSITORY Order Comment: CMP,A1C,LIPID,VITD FOR DR SANTOYO PTH,MIACRE,MG,RENAL,VITD,CBC,URIC FOR DR BAUMAN TYPE CODE TESTS RESULT OUT OF RANGE REFERENCE UNITS LAB L501.1400 2.6-6.0 mg/dL High URIC 6.9 Result Comment: The drugs N-Acetylcysteine and Metamizole may falsely depress this assay. Performed By: #### L500.4050, L500.4100, L501.1400, L501.5200 #### [facility] [address] [place], [address] MAGNESIUM Collected: 08/22/2018 Status: F Source: [place] 7:06 AM [facility] REPOSITORY Order Comment: CMP,A1C,LIPID,VITD FOR DR SANTOYO PTH,MIACRE,MG,RENAL,VITD,CBC,URIC FOR DR BAUMAN TYPE CODE TESTS RESULT OUT OF RANGE REFERENCE UNITS LAB L501.5200 1.6-2.6 mg/dL Normal MG 2.3 Performed By: #### L500.4050, L500.4100, L501.1400, L501.5200 #### [facility] [address] [place], [address] HEMOGLOBIN A1C Collected: 08/22/2018 Status: F Source: [place] 7:06 AM [facility] REPOSITORY Order Comment: CMP,A1C,LIPID,VITD FOR DR SANTOYO PTH,MIACRE,MG,RENAL,VITD,CBC,URIC FOR DR BAUMAN TYPE CODE TESTS RESULT OUT OF RANGE REFERENCE UNITS LAB L501.9985 4.2-6.3 % Normal HGB A1C 5.6 Performed By: #### L501.9985 #### [facility] [address] [place], [place], [address] VITAMIN D,25 HYDROXY Collected: 08/22/2018 Status: F Source: [place] 7:06 AM [facility] REPOSITORY Order Comment: CMP,A1C,LIPID,VITD FOR DR SANTOYO PTH,MIACRE,MG,RENAL,VITD,CBC,URIC FOR DR BAUMAN TYPE CODE TESTS RESULT OUT OF RANGE REFERENCE UNITS LAB L506.1000 29.95-100.01 ng/mL Normal Vitamin D 52.1 25-OH Result Comment: Vitamin D 25(OH) Status Range Deficiency <20 ng/mL (50nmol/L) Insuffciency 20 - 30 ng/mL (50 - 75 nmol/L) Sufficiency 30 - 100 ng/mL (75 - 250 nmol/L) Toxicity >100 ng/mL (>250 nmol/L) Performed By: #### L506.1000 #### [facility] [address] [place], [place], [address] PTHIN Collected: 08/22/2018 Status: F Source: [place] 7:06 [facility] REPOSITORY Order Comment: CMP,A1C,LIPID,VITD FOR DR SANTOYO PTH,MIACRE,MG,RENAL,VITD,CBC,URIC FOR DR BAUMAN TYPE CODE TESTS RESULT OUT OF RANGE REFERENCE UNITS LAB L509.1000 18.4-80.1 pg/mL High PTHIN 87.2 Performed By: #### L509.1000 #### [facility] [address] [place], [place], [address] MICROALB:CREAT Collected: 08/22/2018 Status: F Source: [place] RATIO,RANDOM UR 7:06 AM [facility] REPOSITORY Order Comment: CMP,A1C,LIPID,VITD FOR DR SANTOYO PTH,MIACRE,MG,RENAL,VITD,CBC,URIC FOR DR BAUMAN TYPE CODE TESTS RESULT OUT OF RANGE REFERENCE UNITS LAB L501.1200 NO RANGE EST. mg/dL 22.60 Normal UR CREAT LAB L502.0500 NO RANGE EST. mg/L < 5.0 Normal MICROALBUMI N,UR LAB L502.0600 <30 mg/g CRE mg/g CRE Test Normal not performed MALB:CREAT Performed By: #### L502.0250 #### [facility] [address] [facility] [place], [address] STRESS REPORT Observed: 07/04/2018 Status: F Source: [place] 1:08 PM [facility] REPOSITORY [facility] Cardiovascular Services [address] [place] [address] MR#: [id number] Acct: [id number] Name: PAULA LOPEZ Rep #: [id number] : 1950 67 From: Franklyn Abbott MD Primary Care: [facility] Status: REG CLI Ordering Dr: Sex: F C Stress Test Report Date: 07/04/2018 Procedure: Pharmacologic stress nuclear imaging study Indications: Chest pain; CAD; PCI Consent: Per the patient Procedure: The patient underwent pharmacologic (Regadenoson) evaluation with a peak heart rate of 72 beats per minute (47 predicted maximal heart rate) and a peak blood pressure of 120/64 mmHg. The baseline ECG demonstrated normal sinus rhythm. The peak pharmacologic ECG demonstrated no obvious ECG changes. There were no cardiac dysrhythmias pretest, during pharmacologic infusion, or recovery. There was no complaint of chest discomfort during pharmacologic infusion or recovery. The examination was discontinued secondary to completion of protocol. Impression: 1. Pharmacologic (Regadenoson) evaluation 2. Peak pharmacologic ECG with no obvious ECG change. 3. There were no cardiac dysrhythmias pretest, during pharmacologic infusion, or recovery. 4. Nuclear images pending Myocardial perfusion imaging study: Technique: The patient was injected with 14.9 millicuries of technetium 99m Cardiolite and subsequently rest SPECT Cardiolite nuclear imaging was obtained in the horizontal long, vertical long, and short axis views. The patient underwent pharmacologic (Regadenoson) evaluation with a peak heart rate of 72 beats per minute (47 % percent predicted maximal heart rate) and a peak blood pressure of 120/64 mmHg. The patient was injected with 44.8 millicuries of technetium 99m Cardiolite and subsequently stress SPECT Cardiolite nuclear imaging was obtained in the horizontal long, vertical long, and short axis views. A gated Cardiolite study at peak stress was obtained. Interpretation: Rest and stress SPECT Cardiolite nuclear imaging status post realignment, normalization, and attenuation correction demonstrate a small area of subtle diminished tracer uptake near the apical segments without significant change between rest and stress. There is end systolic thickening and brightening. The gated Cardiolite study demonstrates myocardial thickening and inward wall motion. The reported LVEF is 75 %. Impression: 1. Rest and stress SPECT Cardiolite nuclear imaging demonstrate myocardial perfusion changes appearing compatible with physiologic apical thinning with no myocardial perfusion changes considered diagnostic for associated stress-induced myocardial ischemia or previous myocardial injury/infarction. 2. The gated Cardiolite study reports an LVEF of 75 %. This note was generated with Apttusation software. It may contain incorrect words, spelling, and punctuation that were not noted in checking the note before signing. 07/04/18 1308 <Electronically signed by Franklyn Abbott MD> Date Franklyn Abbott MD CC: YARITZA Acevedo; Sachin Almanza DO Date Dictated: 07/04/18 1301 Date Transcribed: 07/04/18 130 Global Sales Executive: PM Signed CARDIOLOGY VISIT Observed: 06/22/2018 Status: F Source: [place] REPORT 3:52 PM [facility] REPOSITORY [address] [place] [address] OFFICE VISIT Date of Service: 06/22/18 MR#: [id number] Acct: [id number] Name: PAULA LOPEZ Rep #: [id number] : 1950 Provider: YARITZA Acevedo Age/Sex: 67/F Location: [facility] Status: Signed HPI HPI Details: PAULA LOPEZ, is a 67 F who presents to the office today for a cardiovascular outpatient follow-up. She has a history of coronary artery disease status post drug-eluting stent to proximal LAD in March 2018 with mid LAD IVUS showing 50% stenosis, hypertension, hyperlipidemia, and BATSHEVA with CPAP therapy. She states that her chest heaviness continues at both rest and exertion such as going up steps. Her bilateral arm pain has resolved. She states this happens a lot of the time. She states worsening fatigue. Her exercise tolerance is stable via cardiac rehab. Pt denies symptoms of CHF, palpitations, lightheadedness, dizziness, near syncopal or syncopal episodes. Pt denies edema or claudication issues. Pt. denies PND, fever, chills, blood in urine, blood in stool, or myalgia. She states sleeping on two pillows to help with SOB. Intake Vital Signs06/22/18 Height 5 ft 2.5 in 06/22/18 Weight: 302 lb 06/22/18 Body Mass Index (BMI) 54.3 06/22/18 Blood Pressure 106/48 L 06/22/18 Blood Pressure Location Lt brachial Intake Visit Reasons: 3 M FU Security Intern Required: No Accompanied by: Is patient in pain?: No Allergies naproxen [From Naprosyn] Adverse Reaction (Severe, Verified 06/22/18 13:20) INTERNAL BLEEDING prednisone Adverse Reaction (Severe, Verified 06/22/18 13:20) COMBINATION WITH NAPROXEN CAUSED INTERNAL BLEEDING exenatide [From Byetta] Adverse Reaction (Intermediate, Verified 06/22/18 13:20) Unknown ezetimibe [From Zetia] Adverse Reaction (Intermediate, Verified 06/22/18 13:20) Unknown fluticasone [From Flonase] Adverse Reaction (Intermediate, Verified 06/22/18 13:20) Unknown amoxicillin [From Augmentin] Adverse Reaction (Unknown, Verified 06/22/18 13:20) Unknown clavulanic acid [From Augmentin] Adverse Reaction (Unknown, Verified 06/22/18 13:20) Unknown clorazepate dipotassium [From Tranxene T-Tab] Adverse Reaction (Unknown, Verified 06/22/18 13:20) Unknown indomethacin [From Indocin] Adverse Reaction (Unknown, Verified 06/22/18 13:20) Unknown ketoprofen [From Oruvail] Adverse Reaction (Unknown, Verified 06/22/18 13:20) Unknown nizatidine [From Axid] Adverse Reaction (Unknown, Verified 06/22/18 13:20) Unknown ranitidine [From Zantac] Adverse Reaction (Unknown, Verified 06/22/18 13:20) Unknown rosuvastatin [From Crestor] Adverse Reaction (Unknown, Verified 06/22/18 13:20) Unknown sertraline [From Zoloft] Adverse Reaction (Unknown, Verified 06/22/18 13:20) Unknown sulfamethoxazole [From Septra] Adverse Reaction (Unknown, Verified 06/22/18 13:20) Unknown trimethoprim [From Septra] Adverse Reaction (Unknown, Verified 06/22/18 13:20) Unknown naldecon Adverse Reaction (Unknown, Uncoded 05/26/18 13:03) Unknown Medications Furosemide [Lasix] 40 mg PO DAILY 12/22/14 [History Confirmed 06/22/18] Lisinopril [Zestril] 20 mg PO DAILY 12/22/14 [History Confirmed 06/22/18] buPROPion SR [Wellbutrin SR (150mg tablets)] 150 mg PO QHS 12/22/14 [History Confirmed 06/22/18] Multivitamins,Therapeutic [Multivitamin] 1 tab PO DAILY 07/15/15 [History Confirmed 06/22/18] allopurinol 100 mg tablet 200 mg PO DAILYCM tab 03/15/18 [History Confirmed 06/22/18] citalopram 20 mg tablet 20 mg PO QDAY tab 03/15/18 [History Confirmed 06/22/18] dulaglutide 1.5 mg/0.5 mL subcutaneous pen injector 0.5 mg SC QWEEK ml 03/15/18 [History Confirmed 06/22/18] repaglinide 1 mg tablet 1 mg PO QDAY tab 03/15/18 [History Confirmed 06/22/18] Cholecalciferol (Vitamin D3) [Vitamin D3] 5,000 unit PO DAILY 04/07/18 [History Confirmed 06/22/18] metoprolol tartrate 25 mg tablet 25 mg PO BID #180 tab 05/12/18 [Rx Confirmed 06/22/18] clopidogrel 75 mg tablet 75 mg PO DAILY #90 tab 06/20/18 [Rx Confirmed 06/22/18] omeprazole 20 mg capsule,delayed release 20 mg PO DAILY PRN 06/22/18 [History Confirmed 06/22/18] Ejection fraction %: 65 to 70 PFSH Medical History 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) Type 2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(Chronic) CKD (chronic kidney disease) stage 3, GFR 30-59 ml/min (Chronic) GERD (gastroesophageal reflux disease) (Chronic) Gout (Chronic) Hypertension (Chronic) Osteoarthritis (Chronic) Sleep apnea (Chronic) Surgical History History of arthroscopy of right shoulder (Resolved) History of cholecystectomy (Resolved) Hx of appendectomy (Resolved) Hx of arthroscopy of right knee (Resolved) Family History Mother Hypertension Myocardial infarction CAD (coronary artery disease) Diabetes Father Angina pectoris Alzheimer disease Social History Smoking Status: Never smoker alcohol intake: never substance use type: does not use caffeine: Yes Type: coffee Number of servings: 3 ROS Const Const: Positive for fatigue; negative for weakness, body ache, fever(s) or chills ENT ENT: Negative for dizziness Cardio Chest Pain: Yes Palpitations: No Edema: None Muscle aches with walking: None Resp Respiratory: Positive for SOB orthopnea\SOB lying down; negative for SOB with activity, SOB at rest or paroxysmal nocturnal dyspnea GI GI: Negative nausea, black,tarry stools, bright, red blood in stools or vomiting blood/hematemesis : Negative for hematuria or frequent nighttime urination/ nocturia Musc Musc: Positive for muscle weakness (right knee/leg); negative for muscle aches/ myalgia Skin Skin: Negative non-healing lesions or rash Neuro Neuro: Negative for lightheadedness, near syncope, syncope, orthostatic symptoms, weakness or dizziness Endo Endo: Positive for fatigue Allergy Allergy/Immunology: Negative for rash Cardiology Exam Const Appearance: cooperative, comfortable, no acute distress, well developed and well groomed Nutritional Appearance: obese Orientation: alert, awake and oriented x3 Head Head: normal to inspection, normocephalic and atraumatic Ears: hearing grossly normal bilaterally Nose: external nose normal Face and Sinus: face symmetric Mouth: oral mucosae normal Teeth and gingiva: fair dentition Eyes Eyelids: eyelids normal Conjunctivae: conjunctivae normal Pupils: PERRL EOM: EOM intact bilaterally Neck Neck: normal visual inspection and full ROM Carotids: normal carotid upstroke Chest Chest inspection: normal inspection of the chest and symmetric chest movement Auscultation: Bilateral: Clear to Auscultation Cardio Palpation: normal PMI Rate: regular rate Rhythm: regular rhythm Heart sounds: S1 normal and S2 normal GI GI: obese Neuro General: alert, awake and oriented x3 Skin Skin: no rashes or lesions noted Extremities Pulses: Normal: Right Radial Pulse, Left Radial Pulse Lower Extremity Edema: None: Bilateral Psych Psychological: normal affect Supplemental Info Heart catheterization from March 2018 showed left main with mild luminal irregularities, proximal LAD with 75% stenosis, mid LAD with mild luminal irregularities, OM 1 with mid mild luminal irregularities, and RCA with mild luminal irregularities. Her ejection fraction was not assessed. Echocardiogram from March 2018 showed an ejection fraction of 65%, mildly enlarged left atrium, trivial mitral valve insufficiency, trivial tricuspid valve insufficiency, mild focal aortic valve thickening, RVSP of 34 mmHg, and indeterminate diastolic dysfunction. Assessment AND Plan 1. Atherosclerosis of little traverse coronary artery of little traverse heart without angina pectoris I25.10 S/P PTCA/ELFEGO to prox LAD in March 2018; Plan Patient continues to describe chest heaviness on exertion and rest. Her most recent heart catheterization IVUS showed residual will mid LAD with 50% stenosis. She was advised at this time to continue cardiac rehab and well continue to monitor. This will be discussed with Dr. Abbott for further cardiac input. She again expresses that she wishing to only follow with Dr. Abbott. 2. Presence of stent in coronary artery Z95.5 PTCA/ELFEGO to the prox LAD in March 2018 Plan She will continue current treatment plan as outlined above. 3. Essential hypertension I10 Plan Patient's blood pressure is well-controlled today in the office. We will continue to monitor this. We will not make any medication regimen changes. Plan Detail Additional Comments Thank you for allowing us to participate in the patient's plan of care, if you have any questions please do not hesitate to call. This note was generated using a voice recognition system and there may be incorrect words, spelling, or punctuation that were not noted upon reviewing the office note prior to saving. Coding Level of Care Code Off vis,est,level 3 Diagnoses Atherosclerosis of little traverse coronary artery of little traverse heart without angina pectoris I25.10 M[place] vs. transplanted heart: little traverse heart Presence of stent in coronary artery Z95.5 Essential hypertension I10 Hypertension type: essential hypertension Coding Level of Care Code Off vis,est,level 3 Diagnoses Atherosclerosis of little traverse coronary artery of little [place] heart without angina pectoris I25.10 [place] vs. transplanted heart: little traverse heart Presence of stent in coronary artery Z95.5 Essential hypertension I10 Hypertension type: essential hypertension 06/22/18 1552 <Electronically signed by Art DE LA GARZA> Date Art Acevedo NP-C Cosigner Signature: Date (if applicable) CC: Sachin Almanza DO CBC-COMPLETE BLOOD CNT Collected: 05/31/2018 Status: F Source: [place] NO DIFF 10:22 AM [facility] REPOSITORY TYPE CODE TESTS RESULT OUT OF RANGE REFERENCE UNITS LAB L100.1000 4.4-11.0 K/mm3 Normal WBC 10.1 LAB L100.1200 4.2-5.4 M/mm3 Normal RBC 4.49 LAB L100.1300 12.0-15.0 g/dl Normal HGB 13.5 LAB L100.1400 37-47 % Normal HCT 42.8 LAB L100.1500 81-99 fL Normal MCV 95.3 LAB L100.1600 27.0-32.0 pg Normal MCH 30.1 LAB L100.1700 32-36 g/gl Low MCHC 31.5 LAB L100.1810 11.6-14.6 % Normal RDW CV 14.0 LAB L100.1820 35.1-43.9 fl High RDW SD 48.2 LAB L100.1900 150-450 K/mm3 Normal PLT 320 LAB L100.2000 6.2-12.0 fl Normal MPV 9.7 Performed By: #### L100.0500 #### [facility] [address] [place], [place], [address] RENAL PROFILE Collected: 05/31/2018 Status: F Source: [place] 10:22 AM [facility] REPOSITORY TYPE CODE TESTS RESULT OUT OF RANGE REFERENCE UNITS LAB L501.0100 74-106 mg/dL High GLU 152 Result Comment: Fasting Glucose result greater than or equal to 126 mg/dL suggests DIABETES MELLITUS per A.D.A. criteria. Please note revised GLUCOSE reference range effective 2017. LAB L501.1000 7-18 mg/dL High BUN 39 LAB L501.1100 0.55-1.02 mg/dL High CREAT,SERUM 1.58 Result Comment: The validity of the calculated GFR AND GFRAA in patients over 70 years has not been determined. Clinical correlation is essential. LAB L501.1110 >60 mL/min Low EST GFR 35 Result Comment: Non- GFR Calc LAB L501.1115 >60 mL/min Low EST GFR - AA 42 Result Comment: GFR Calc LAB L501.1300 10-20 RATIO High BUN/CRE 24.7 LAB L501.1800 3.2-5.0 g/dL Normal ALB 3.9 LAB L501.2200 8.5-10.1 mg/dL CA Normal 9.4 LAB L501.2300 2.5-4.9 mg/dL Normal PHOS 3.5 LAB L501.5300 136-145 mmol/L NA Normal 136 LAB L501.5600 3.5-5.1 mmol/L K Normal 4.6 LAB L501.5900 98-107 mmol/L CL Normal 102 LAB L501.6100 21.0-32.0 mmol/L Normal CO2 26.0 Performed By: #### L500.3600, L501.5200 #### [facility] [address] [place], [place], [address] MAGNESIUM Collected: 05/31/2018 Status: F Source: [place] 10:22 AM [facility] REPOSITORY TYPE CODE TESTS RESULT OUT OF RANGE REFERENCE UNITS LAB L501.5200 1.6-2.6 mg/dL Normal MG 2.4 Performed By: #### L500.3600, L501.5200 #### [facility] [address] [place], [address] VITAMIN D,25 HYDROXY Collected: 05/31/2018 Status: F Source: [place] 10:22 AM [facility] REPOSITORY TYPE CODE TESTS RESULT OUT OF RANGE REFERENCE UNITS LAB L506.1000 29.95-100.01 ng/mL Normal Vitamin D 55.5 25-OH Result Comment: Vitamin D 25(OH) Status Range Deficiency <20 ng/mL (50nmol/L) Insuffciency 20 - 30 ng/mL (50 - 75 nmol/L) Sufficiency 30 - 100 ng/mL (75 - 250 nmol/L) Toxicity >100 ng/mL (>250 nmol/L) Performed By: #### L506.1000 #### [facility] [address] [place], [address] PTHIN Collected: 05/31/2018 Status: F Source: [place] 10:22 AM [facility] REPOSITORY TYPE CODE TESTS RESULT OUT OF RANGE REFERENCE UNITS LAB L509.1000 18.4-80.1 pg/mL Normal PTHIN 65.4 Performed By: #### L509.1000 #### [facility] [address] [place], [address] MICROALB:CREAT Collected: 05/31/2018 Status: F Source: [place] RATIO,RANDOM UR 10:22 AM [facility] REPOSITORY TYPE CODE TESTS RESULT OUT OF RANGE REFERENCE UNITS LAB L501.1200 NO RANGE EST. mg/dL Normal UR CREAT 112.00 LAB L502.0500 NO RANGE EST. mg/L Normal 5.4 MICROALBUMIN ,UR LAB L502.0600 <30 mg/g CRE mg/g CRE Normal 4.8 MALB:CREAT Performed By: #### L502.0250 #### [facility] [address] [place], [address] URGENT CARE VISIT Observed: 05/26/2018 Status: F Source: [place] REPORT 1:31 PM [facility] REPOSITORY [facility] [address] [place] [address] [address] [place] [address] OFFICE VISIT Date of Service: 05/26/18 MR#: [id number] Acct: [id number] Name: MACYPAULA TORRES Aide Rep #: [id number] : 1950 Provider: Travis CHOUDHURY Age/Sex: 67/F [place] [facility] [place] Status: Signed Intake Vital Signs05/26/18 Height 5 ft 1 in Intake Visit Reasons: PAIN IN SINUS AREA LT SIDE Allergies naproxen [From Naprosyn] Adverse Reaction (Severe, Verified 05/26/18 13:03) INTERNAL BLEEDING prednisone Adverse Reaction (Severe, Verified 05/26/18 13:03) COMBINATION WITH NAPROXEN CAUSED INTERNAL BLEEDING exenatide [From Byetta] Adverse Reaction (Intermediate, Verified 05/26/18 13:03) Unknown ezetimibe [From Zetia] Adverse Reaction (Intermediate, Verified 05/26/18 13:03) Unknown fluticasone [From Flonase] Adverse Reaction (Intermediate, Verified 05/26/18 13:03) Unknown amoxicillin [From Augmentin] Adverse Reaction (Unknown, Verified 05/26/18 13:03) Unknown clavulanic acid [From Augmentin] Adverse Reaction (Unknown, Verified 05/26/18 13:03) Unknown clorazepate dipotassium [From Tranxene T-Tab] Adverse Reaction (Unknown, Verified 05/26/18 13:03) Unknown indomethacin [From Indocin] Adverse Reaction (Unknown, Verified 05/26/18 13:03) Unknown ketoprofen [From Oruvail] Adverse Reaction (Unknown, Verified 05/26/18 13:03) Unknown nizatidine [From Axid] Adverse Reaction (Unknown, Verified 05/26/18 13:03) Unknown ranitidine [From Zantac] Adverse Reaction (Unknown, Verified 05/26/18 13:03) Unknown rosuvastatin [From Crestor] Adverse Reaction (Unknown, Verified 05/26/18 13:03) Unknown sertraline [From Zoloft] Adverse Reaction (Unknown, Verified 05/26/18 13:03) Unknown sulfamethoxazole [From Septra] Adverse Reaction (Unknown, Verified 05/26/18 13:03) Unknown trimethoprim [From Septra] Adverse Reaction (Unknown, Verified 05/26/18 13:03) Unknown naldecon Adverse Reaction (Unknown, Uncoded 05/26/18 13:03) Unknown Medications Furosemide [Lasix] 40 mg PO DAILY 12/22/14 [History Confirmed 04/07/18] Lisinopril [Zestril] 20 mg PO DAILY 12/22/14 [History Confirmed 04/07/18] Omeprazole [Prilosec] 20 mg PO DAILY 12/22/14 [History Confirmed 04/07/18] buPROPion SR [Wellbutrin SR (150mg tablets)] 150 mg PO QHS 12/22/14 [History Confirmed 04/07/18] Multivitamins,Therapeutic [Multivitamin] 1 tab PO DAILY 07/15/15 [History Confirmed 03/27/18] allopurinol 100 mg tablet 200 mg PO DAILYCM tab 03/15/18 [History Confirmed 04/07/18] citalopram 20 mg tablet 20 mg PO QDAY tab 03/15/18 [History Confirmed 04/07/18] dulaglutide 1.5 mg/0.5 mL subcutaneous pen injector 0.5 mg SC QWEEK ml 03/15/18 [History Confirmed 04/07/18] omega-3 fatty acids 1,000 mg capsule 1,000 mg PO QDAY 03/15/18 [History Confirmed 03/27/18] repaglinide 1 mg tablet 1 mg PO QDAY tab 03/15/18 [History Confirmed 04/07/18] aspirin 81 mg chewable tablet 81 mg PO QDAY #30 tab 03/16/18 [Rx Confirmed 04/07/18] Cholecalciferol (Vitamin D3) [Vitamin D3] 5,000 unit PO DAILY 04/07/18 [History Confirmed 04/07/18] clopidogrel 75 mg tablet 75 mg PO DAILY #30 tab 05/12/18 [Rx] metoprolol tartrate 25 mg tablet 25 mg PO BID #180 tab 05/12/18 [Rx] amoxicillin 875 mg-potassium clavulanate 125 mg tablet 1 tab PO Q12H 10 Days #20 tab 05/26/18 [Rx Confirmed 05/26/18] fluconazole 150 mg tablet 150 mg PO ONCE #1 tab 05/26/18 [Rx Confirmed 05/26/18] methylprednisolone 4 mg tablets in a dose pack 4 mg PO PER PKG DIR 5 Days #21 tab 05/26/18 [Rx Confirmed 05/26/18] Nurse's Note: Pt did not have a current list of meds or allergies at today's visit. Saman Crabtree LPN [facility] Medical History 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) Type 2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(Chronic) CKD (chronic kidney disease) stage 3, GFR 30-59 ml/min (Chronic) GERD (gastroesophageal reflux disease) (Chronic) Gout (Chronic) Hypertension (Chronic) Osteoarthritis (Chronic) Sleep apnea (Chronic) Surgical History History of cholecystectomy (Resolved) Hx of appendectomy (Resolved) Family History Mother Hypertension Myocardial infarction CAD (coronary artery disease) Father Angina pectoris Social History Smoking Status: Never smoker alcohol intake: never substance use type: does not use HPI HPI Details: PAUAL LOPEZ, is a 67 F who presents to the office today for sinus pressure/pain to left side of the face and headache for the past 2 weeks. Patient states she has had multiple sinus infections in the past with similar type symptoms. She states the headache is made slightly better with Tylenol sinus however the continue to return. She denies any fever, chills, sweats. No nausea, vomiting, diarrhea. She does state that she has had yeast infections induced with antibiotics in the past and is requesting Diflucan. No other associated symptoms or alleviating/aggravating factors. ROS Const Constitutional: Positive for headache(s); no fever(s), chills, night sweats or abnormal sleep pattern ENT ENT: Positive for headache(s), nasal congestion, sinus pressure, sinus pain and nasal discharge; no ear pain Resp Respiratory: No cough or shortness of breath Cardio Cardiology: No shortness of breath, irregular heart rhythm or fast heart rate Neuro Neurology: Positive for headache(s); no confusion Psych Psychiatric: No abnormal sleep pattern, No confusion Exam Const General: cooperative, healthy appearing [facility] Head: normal to inspection Ears: hearing grossly normal bilaterally, TM's normal bilaterally, EAC's normal Nose: nasal discharge purulent Face and sinus: sinus tenderness frontal and maxillary Mouth: oral mucosae normal Throat: abnormal tonsil bilaterally, postnasal drainage Resp Effort AND Inspection: normal respiratory effort Auscultation: Bilateral: Clear to Auscultation Cardio Palpation: normal PMI Rate: regular rate Rhythm: regular rhythm Neuro General: alert, CN's II-XI intact bilaterally Psych Appearance: grossly normal Mental Status: mental status grossly normal Assessment AND Plan Problems 1. Acute non-recurrent maxillary sinusitis J01.00 Status Acute 2. Antibiotic-induced yeast infection B37.9; T36.95XA Status Acute Medications New: Coding Level of Care Code Off vis,est,level 3 Diagnoses Acute non-recurrent maxillary sinusitis J01.00 Sinusitis location: maxillary Recurrence: non-recurrent Antibiotic-induced yeast infection B37.9; T36.95XA 05/26/18 1331 <Electronically signed by Travis CHOUDHURY> Date Travis CHOUDHURY Cosigner Signature: Date (if applicable) CC: HEMOGLOBIN A1C Collected: 05/11/2018 Status: F Source: [place] 9:48 AM [facility] REPOSITORY Order Comment: PER PATIENT REQUEST SEND TO DR ALMANZA AND DR CONTRERAS([phone]) TYPE CODE TESTS RESULT OUT OF RANGE REFERENCE UNITS LAB L501.9985 4.2-6.3 % Normal HGB A1C 5.7 Performed By: #### L501.9985 #### [facility] [address] [place], [address] COMPREHENSIVE METABOLIC Collected: 05/11/2018 Status: F Source: [facility] 9:48 AM [facility] REPOSITORY Order Comment: PER PATIENT REQUEST SEND TO DR ALMANZA AND DR CONTRERAS([phone]) TYPE CODE TESTS RESULT OUT OF RANGE REFERENCE UNITS LAB L501.0100 74-106 mg/dL High GLU 107 Result Comment: Fasting Glucose result from 100 to 125 mg/dL suggests IMPAIRED HOMEOSTASIS per A.D.A. criteria. Please note revised GLUCOSE reference range effective 2017. LAB L501.1000 7-18 mg/dL High BUN 38 LAB L501.1100 0.55-1.02 mg/dL High CREAT,SERUM 1.59 Result Comment: The validity of the calculated GFR AND GFRAA in patients over 70 years has not been determined. Clinical correlation is essential. LAB L501.1110 >60 mL/min Low EST GFR 34 Result Comment: Non- GFR Calc LAB L501.1115 >60 mL/min Low EST GFR - AA 41 Result Comment: GFR Calc LAB L501.1300 10-20 RATIO High BUN/CRE 23.9 LAB L501.1500 6.4-8.2 g/dL T Normal PROT 7.2 LAB L501.1800 3.2-5.0 g/dL Normal ALB 3.9 LAB L501.1950 2.2-4.2 g/dL Normal GLOB 3.3 LAB L501.2000 0.9-2.4 RATIO Normal A/G 1.2 LAB L501.2200 8.5-10.1 mg/dL CA Normal 9.1 LAB L501.4100 15-37 U/L Normal AST 19 LAB L501.4305 45-117 U/L Normal ALK P 86 LAB L501.4405 13-56 U/L Normal ALT 26 LAB L501.4600 0.20-1.00 mg/dL T Normal BILI 0.40 LAB L501.5300 136-145 mmol/L NA Normal 140 LAB L501.5600 3.5-5.1 mmol/L K Normal 4.4 LAB L501.5900 98-107 mmol/L CL Normal 105 LAB L501.6100 21.0-32.0 mmol/L Normal CO2 25.0 LAB L501.6200 5-15 Normal GAP 10 Performed By: #### L500.4050, L501.9520 #### [facility] [address] [place], [place], [address] THYROID STIM HORMONE Collected: 05/11/2018 Status: F Source: PATEL (TSH) 9:48 AM [facility] REPOSITORY Order Comment: PER PATIENT REQUEST SEND TO DR ALMANZA AND DR CONTRERAS([phone]) TYPE CODE TESTS RESULT OUT OF RANGE REFERENCE UNITS LAB L501.9520 0.358-3.74 uIU/mL Normal TSH 0.52 Performed By: #### L500.4050, L501.9520 #### [facility] [address] [place], [place], [address] CARDIOLOGY VISIT Observed: 04/11/2018 Status: F Source: PATEL REPORT 12:36 PM [facility] REPOSITORY [facility] [address] [place] [address] OFFICE VISIT Date of Service: 04/11/18 MR#: [id number] Acct: [id number] Name: PAULA LOPEZ Rep #: [id number] : 1950 Provider: YARITZA Acevedo Age/Sex: 67/F Location: [facility] Status: Signed HPI HPI Details: PAULA LOPEZ, is a 67 F who presents to the office today for a cardiovascular outpatient follow-up. She has a history of coronary artery disease status post drug-eluting stent to proximal LAD in March 2018 with mid LAD IVUS showing 50% stenosis, hypertension, hyperlipidemia, and BATSHEVA with CPAP therapy. Pt. denies arm, jaw, or neck discomfort. Her exercise tolerance is stable. Pt. denies symptoms of CHF, palpitations, lightheadedness, dizziness, near syncope, or syncopal episodes. Pt. denies edema or claudication issues. Pt. denies orthopnea, PND, fever, chills, blood in urine, blood in stool, myalgia, or unexplainable fatigue. Patient states getting chest heaviness when walking up steps. This improves with rest. She states bilateral arm tiredness. She states her SOB has greatly improved since her stenting. Intake Vital Signs04/11/18 Height 5 ft 2.5 in 04/11/18 Weight: 307 lb 04/11/18 Body Mass Index (BMI) 55.2 04/11/18 Blood Pressure 122/58 04/11/18 Blood Pressure Location Lt brachial Intake Visit Reasons: FU from stent 03/28/18 Security Intern Required: No Accompanied by: none Is patient in pain?: No Allergies naproxen [From Naprosyn] Adverse Reaction (Severe, Verified 04/11/18 09:45) INTERNAL BLEEDING prednisone Adverse Reaction (Severe, Verified 04/11/18 09:45) COMBINATION WITH NAPROXEN CAUSED INTERNAL BLEEDING exenatide [From Byetta] Adverse Reaction (Intermediate, Verified 04/11/18 09:45) Unknown ezetimibe [From Zetia] Adverse Reaction (Intermediate, Verified 04/11/18 09:45) Unknown fluticasone [From Flonase] Adverse Reaction (Intermediate, Verified 04/11/18 09:45) Unknown amoxicillin [From Augmentin] Adverse Reaction (Unknown, Verified 04/11/18 09:45) Unknown clavulanic acid [From Augmentin] Adverse Reaction (Unknown, Verified 04/11/18 09:45) Unknown clorazepate dipotassium [From Tranxene T-Tab] Adverse Reaction (Unknown, Verified 04/11/18 09:45) Unknown indomethacin [From Indocin] Adverse Reaction (Unknown, Verified 04/11/18 09:45) Unknown ketoprofen [From Oruvail] Adverse Reaction (Unknown, Verified 04/11/18 09:45) Unknown nizatidine [From Axid] Adverse Reaction (Unknown, Verified 04/11/18 09:45) Unknown ranitidine [From Zantac] Adverse Reaction (Unknown, Verified 04/11/18 09:45) Unknown rosuvastatin [From Crestor] Adverse Reaction (Unknown, Verified 04/11/18 09:45) Unknown sertraline [From Zoloft] Adverse Reaction (Unknown, Verified 04/11/18 09:45) Unknown sulfamethoxazole [From Septra] Adverse Reaction (Unknown, Verified 04/11/18 09:45) Unknown trimethoprim [From Septra] Adverse Reaction (Unknown, Verified 04/11/18 09:45) Unknown naldecon Adverse Reaction (Unknown, Uncoded 03/16/18 13:04) Unknown Medications Furosemide [Lasix] 40 mg PO DAILY 12/22/14 [History Confirmed 04/07/18] Lisinopril [Zestril] 20 mg PO DAILY 12/22/14 [History Confirmed 04/07/18] Omeprazole [Prilosec] 20 mg PO DAILY 12/22/14 [History Confirmed 04/07/18] buPROPion SR [Wellbutrin SR (150mg tablets)] 150 mg PO QHS 12/22/14 [History Confirmed 04/07/18] Multivitamins,Therapeutic [Multivitamin] 1 tab PO DAILY 07/15/15 [History Confirmed 03/27/18] allopurinol 100 mg tablet 200 mg PO DAILYCM tab 03/15/18 [History Confirmed 04/07/18] citalopram 20 mg tablet 20 mg PO QDAY tab 03/15/18 [History Confirmed 04/07/18] dulaglutide 1.5 mg/0.5 mL subcutaneous pen injector 0.5 mg SC QWEEK ml 03/15/18 [History Confirmed 04/07/18] omega-3 fatty acids 1,000 mg capsule 1,000 mg PO QDAY 03/15/18 [History Confirmed 03/27/18] repaglinide 1 mg tablet 1 mg PO QDAY tab 03/15/18 [History Confirmed 04/07/18] aspirin 81 mg chewable tablet 81 mg PO QDAY #30 tab 03/16/18 [Rx Confirmed 04/07/18] Clopidogrel Bisulfate [Plavix] 75 mg PO DAILY tab 03/29/18 [Rx Confirmed 04/07/18] metoprolol tartrate 25 mg tablet 25 mg PO BID #60 tab 03/29/18 [Rx] Cholecalciferol (Vitamin D3) [Vitamin D3] 5,000 unit PO DAILY 04/07/18 [History Confirmed 04/07/18] Ejection fraction %: 65 to 70 PFSH Medical History 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) Type 2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(Chronic) CKD (chronic kidney disease) stage 3, GFR 30-59 ml/min (Chronic) GERD (gastroesophageal reflux disease) (Chronic) Gout (Chronic) Hypertension (Chronic) Osteoarthritis (Chronic) Sleep apnea (Chronic) Surgical History History of cholecystectomy (Resolved) Hx of appendectomy (Resolved) Family History Mother Hypertension Myocardial infarction CAD (coronary artery disease) Father Angina pectoris Social History Smoking Status: Never smoker alcohol intake: never substance use type: does not use ROS Const Const: Negative for fatigue, weakness, body ache, fever(s) or chills ENT ENT: Negative for dizziness Cardio Chest Pain: Yes Palpitations: No Edema: None Muscle aches with walking: None Resp Respiratory: Negative for SOB with activity, SOB at rest, SOB orthopnea\SOB lying down or paroxysmal nocturnal dyspnea GI GI: Negative nausea, black,tarry stools, bright, red blood in stools or vomiting blood/hematemesis : Negative for hematuria or frequent nighttime urination/ nocturia Musc Musc: Positive for muscle weakness (bilateral upper arms with exertion); negative for muscle aches/ myalgia Skin Skin: Negative non-healing lesions or rash Neuro Neuro: Negative for weakness, dizziness, lightheadedness, near syncope, syncope or orthostatic symptoms Endo Endo: Negative for fatigue Allergy Allergy/Immunology: Negative for rash Cardiology Exam Const Appearance: cooperative, comfortable, no acute distress, well developed and well groomed Nutritional Appearance: obese Orientation: alert, awake and oriented x3 Head Head: normal to inspection, normocephalic and atraumatic Ears: hearing grossly normal bilaterally Nose: external nose normal Face and Sinus: face symmetric Mouth: oral mucosae normal Teeth and gingiva: fair dentition Eyes Eyelids: eyelids normal Conjunctivae: conjunctivae normal Pupils: PERRL EOM: EOM intact bilaterally Neck Neck: normal visual inspection and full ROM Carotids: normal carotid upstroke Chest Chest inspection: normal inspection of the chest and symmetric chest movement Auscultation: Bilateral: Clear to Auscultation Cardio Palpation: normal PMI Rate: regular rate Rhythm: regular rhythm Heart sounds: S1 normal and S2 normal GI GI: obese Neuro General: alert, awake and oriented x3 Skin Skin: no rashes or lesions noted Extremities Pulses: Normal: Right Radial Pulse, Left Radial Pulse Lower Extremity Edema: None: Bilateral Psych Psychological: normal affect Supplemental Info Heart catheterization from March 2018 showed left main with mild luminal irregularities, proximal LAD with 75% stenosis, mid LAD with mild luminal irregularities, OM 1 with mid mild luminal irregularities, and RCA with mild luminal irregularities. Her ejection fraction was not assessed. Echocardiogram from March 2018 showed an ejection fraction of 65%, mildly enlarged left atrium, trivial mitral valve insufficiency, trivial tricuspid valve insufficiency, mild focal aortic valve thickening, RVSP of 34 mmHg, and indeterminate diastolic dysfunction. Assessment AND Plan 1. Atherosclerosis of little traverse coronary artery of little traverse heart without angina pectoris I25.10 S/P PTCA/ELFEGO to prox LAD in March 2018; Plan Patient does describe some chest heaviness on exertion. Her most recent heart catheterization IVUS showed residual will mid LAD with 50% stenosis. It is unclear if her chest heaviness is related to a cardiac etiology. She was advised to continue with cardiac rehab and if symptoms worsen during cardiac rehab further assessment will be made with either stress test or repeat heart catheterization. She will continue with current medications. She will return to our office in 3 months to evaluate cardiac rehab progress and chest heaviness. At that time further discussion will be made regarding follow-up appointment timing due to patient's desire to only follow up with Dr. Abbott. 2. Presence of stent in coronary artery Z95.5 PTCA/ELFEGO to the prox LAD in March 2018 Plan She will continue current treatment plan as outlined above. 3. Essential hypertension I10 Plan Patient's blood pressure is well-controlled today in the office. We will continue to monitor this. We will not make any medication regimen changes. Plan Detail Additional Comments Thank you for allowing us to participate in the patients plan of care, if you have any questions please do not hesitate to call. This note was generated using a voice recognition system and there may be incorrect words, spelling or punctuation that were not noted when reviewing the office note prior to saving. Follow Up 3 Months (JHR) 14 Months (PFM) Coding Level of Care Code Off vis,est,level 3 Diagnoses Atherosclerosis of little traverse coronary artery of little traverse heart without angina pectoris I25.10 M[place] vs. transplanted heart: little traverse heart Presence of stent in coronary artery Z95.5 Essential hypertension I10 Hypertension type: essential hypertension Coding Level of Care Code Off vis,est,level 3 Diagnoses Atherosclerosis of little traverse coronary artery of little traverse heart without angina pectoris I25.10 [place] vs. transplanted heart: little traverse heart Presence of stent in coronary artery Z95.5 Essential hypertension I10 Hypertension type: essential hypertension 04/11/18 1236 <Electronically signed by Art DE LA GARZA> Date Art DE LA GARZA Cosigner Signature: Date (if applicable) CC: Sachin Almanza DO CR - HISTORY AND Observed: 04/10/2018 Status: F Source: [place] PHYSICAL 8:07 AM [facility] REPOSITORY [facility] Cardiac Rehab [address] [place] [address] CR - History AND Physical MR#: [id number] Acct: [id number] Name: JESSICATANAPAULA M Rep #: [id number] : 1950 67 From: Avery Cordoba RN PCP: Sachin Almanza DO DOS: 04/07/18 CR - History AND Physical - General Arrival date:: 04/07/18 Arrival time:: 12:57 Date of Referral:: 04/07/18 Date of CR Evaluation:: 04/07/18 Referring Physician: Dr. Cristina Abbott Primary Diagnosis: I25.10 - History of Present Cardiac Event Onset Date: Enter Onset Date of cardiac illnesses in Comment field below Current stable Angina Pectoris:: No Acute Myocardial Infarction within 12 months:: No Coronary Artery Bypass Graft:: No Heart valve replacement or repair:: No PTCA or coronary stenting:: Yes - 03/28/18 Heart or Heart-Lung Transplant:: No Heart Failure EF <35%:: No Type of Symptoms:: SOB Interventions with present event:: stress test, PCI with stent Were there any complications?: no - Medications Home Medications: Ambulatory Orders Medication Instructions Recorded Furosemide [Lasix] 40 mg PO DAILY 12/22/14 Lisinopril [Zestril] 20 mg PO DAILY 12/22/14 - Allergies Allergies/Adverse Reactions: Allergies naproxen [From Naprosyn] Adverse Reaction (Severe, Verified 03/16/18 13:04) INTERNAL BLEEDING prednisone Adverse Reaction (Severe, Verified 03/16/18 13:04) COMBINATION WITH NAPROXEN CAUSED INTERNAL BLEEDING exenatide [From Byetta] Adverse Reaction (Intermediate, Verified 03/16/18 13:04) Unknown ezetimibe [From Zetia] Adverse Reaction (Intermediate, Verified 03/16/18 13:04) Unknown fluticasone [From Flonase] Adverse Reaction (Intermediate, Verified 03/16/18 13:04) Unknown amoxicillin [From Augmentin] Adverse Reaction (Unknown, Verified 03/16/18 13:04) Unknown clavulanic acid [From Augmentin] Adverse Reaction (Unknown, Verified 03/16/18 13:04) Unknown clorazepate dipotassium [From Tranxene T-Tab] Adverse Reaction (Unknown, Verified 03/16/18 13:04) Unknown indomethacin [From Indocin] Adverse Reaction (Unknown, Verified 03/16/18 13:04) Unknown ketoprofen [From Oruvail] Adverse Reaction (Unknown, Verified 03/16/18 13:04) Unknown nizatidine [From Axid] Adverse Reaction (Unknown, Verified 03/16/18 13:04) Unknown ranitidine [From Zantac] Adverse Reaction (Unknown, Verified 03/16/18 13:04) Unknown rosuvastatin [From Crestor] Adverse Reaction (Unknown, Verified 03/16/18 13:04) Unknown sertraline [From Zoloft] Adverse Reaction (Unknown, Verified 03/16/18 13:04) Unknown sulfamethoxazole [From Septra] Adverse Reaction (Unknown, Verified 03/16/18 13:04) Unknown trimethoprim [From Septra] Adverse Reaction (Unknown, Verified 03/16/18 13:04) Unknown naldecon Adverse Reaction (Unknown, Uncoded 03/16/18 13:04) Unknown - Sleep Disorder Evaluation Hx of Sleep Apnea: Yes Do you snore loudly (louder than talking or can be heard through closed doors)?: Yes Do you often feel tired/ fatigued/ sleepy during daytime?: Yes Has anyone observed you stop breathing during sleep?: Yes History of Hypertension (for STOP score): Yes - On CPAP STOP Results: Positive Advanced Directives - Advanced Directives Power of Customer Service Sales Associate: No Living Will: No Advance Directives Information Provided: Yes Advance Directives on File: No Past Medical History - Past Medical Illness Medical History: Past Medical History (Last Reviewed 03/16/18 @ 13:09 by Sherrie Goldsmith) 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 Kevon Moon - Family History Summary Family History: Family History (Last Reviewed 03/16/18 @ 13:09 by Sherrie Goldsmith) Mother Hypertension Myocardial infarction CAD (coronary artery disease) Father Angina pectoris Social History - Smoking History Smoking Status: Never smoker - Alcohol Use Alcohol Usage: No - Substance Abuse Hx Substance Use: No - Occupation Occupation (List type of work in comments):: Retired - Hobbies, Recreation, Social Activities Hobbies: Other - family Recreational Activities: I am able to engage in all my recreational activities Social Environment - Status Marital Status: - Current Living Arrangements Living Environment:: Spouse - Children How many children do you have?: 3 Do any of your children live nearby?: Yes - Safety Do you feel safe in your surroundings?: Yes - Assistance Do you need any assistance at home?: no Review of Systems - Review of Systems Hints: Right click = Denies (Slash). Left click = Reports (Samish) Review of Present Symptoms: Reports: Fatigue, Appetite - Normal - nausea since procedure., Appetite - Special Diet - Cardiac diabetic. Denies: Shortness of Breath at Rest, Shortness of Breath with Exertion, PVD, Operative Discomfort, Angina, Wound Healing, Dizziness/Lightheadedness, Heart Arrhythmia/Irregularities, Sleep - Normal, Sexual Changes - Pain Is Patient Pain Free?: Yes Previous experience dealing with pain?: knee pain occas, uses Tylenol rarely. Risk Factor Assessment - Chief Complaint Chief Complaint: wanted her here. - Pulse Pulse Rate: 62 Pulse Rhythm: Regular - Hypertension How long have you been treated?: 43 years On medication(s)?: yes Blood Pressure Sitting - Right Arm: 112/70 Blood Pressure Sitting - Left Arm: 116/70 - Diabetes Diabetic History: Type II, Medication Dependent, Insulin Dependent Nutrition Referral for Diabetes: Yes - Obesity Height: 1.59 m Weight:: 138.856 kg Weight in Pounds: 306.1 lbs Weight Source: Standing Scale Body Mass Index (BMI): 55.0 Desired Body Weight: 282 Realistic Weight Goal (Loss of 1-2 lbs/week): 282 Nutritional Referral for Obesity: Yes - Physical Inactivity Physical Inactivity: None Exercise Limitations: has bad knees - Risk Stratification Risk Guidelines: Lowest Risk: Risk Factor for Smoking, Moderate Risk: Risk Factor for Dyslipidemia, Risk Factor for Depression, Highest Risk: Risk Factor for Diabetes, Risk Factor for Obesity, Risk Factor for Hypertension, Risk Factor for Sedentary Lifestyle - For Smoking Smoking Risk Guidelines: Smoking Low Risk: None or quit greater than 6 months ago. Smoking Moderate Risk: Smoker or quit 6 months or less ago. Smoking High Risk: Smoker - For Dyslipidemia Dyslipidemia Risk Guidelines: Low Risk: Moderate Risk: High Risk: 15-25% fat 25.1-29% fat >/= 30% fat. <7% sat fat 7-9% sat fat >9% sat fat. <150 mg chol 150-299 mg chol >/= 300 mg chol. LDL <100 LDL 100-129 LDL >/= 130. Chol/HDL ratio <5.0 Chol/HDL ratio 5.0-6.0 Chol/HDL ratio >6.0. Triglycerides <100 Triglycerides 100-149 Triglycerides >/= 150 - For Diabetes Mellitus Diabetes Risk Guidelines: Diabetes Low Risk: HgA1c <6.5% and/or FBG <120. Diabetes Moderate Risk: HgA1c 6.6-7.9% and/or FBG 120- 180. Diabetes High Risk: HgA1c >/= 8% and/or FBG >180 - For Obesity/Overweight Obesity/Overweight Risk Guidelines: Obesity Low Risk: BMI <25.0. Obesity Moderate Risk: BMI 25-29.9. Obesity High Risk: BMI >/= 30.0 - For Hypertension Hypertension Risk Guidelines: Hypertension Low Risk: Systolic <120 and Diastolic <80. Hypertension Moderate Risk: Systolic 120-139 and Diastolic 80-89. Hypertension High Risk: Systolic >/= 140 and Diastolic >/= 90 - For Sedentary Lifestyle Sedentary Lifestyle Risk Guidelines: Sedentary Lifestyle Low Risk: >/= 1,500 kcal/week. Sedentary Lifestyle Moderate Risk: 700-1,499 kcal/week. Sedentary Lifestyle High Risk: < 700 kcal/week - For Depression Depression Risk Guidelines: Depression Low Risk: Not clinically depressed. Depression Moderate Risk: Mildly depressed. Depression High Risk: Clinically depressed - Family History Family History: Family History (Last Reviewed 03/16/18 @ 13:09 by Sherrie Goldsmith) Mother Hypertension Myocardial infarction CAD (coronary artery disease) Father Angina pectoris Motivation - Motivation to Participate On a scale of 1 to 10, how prepared are you to commit to attending program?: 10 04/07/18 1422 <Electronically signed by Avery Cordoba RN> Date Avery Cordoba RN Outcome assessment reviewed. Exercise plan approved as documented. Treatment plan and goals support patient needs/abilities. Continue with current plan. I certify the patient demonstrates improvement and remains willing and capable of participation. the patient continues to benefit from cardiac rehab services/training. The patient may continue at current intensity, endurance and modality and progress per protocol. 04/10/18 0807 <Electronically signed by Franklyn Abbott MD> Cosigner Signature: Date Franklyn Abbott MD CC: Signed CBC W/DIFF, AUTOMATED Collected: 04/03/2018 Status: F Source: PATEL 2:17 PM [facility] REPOSITORY TYPE CODE TESTS RESULT OUT OF RANGE REFERENCE UNITS LAB L100.1000 4.4-11.0 K/mm3 Normal WBC 9.0 LAB L100.1200 4.2-5.4 M/mm3 Normal RBC 4.48 LAB L100.1300 12.0-15.0 g/dl Normal HGB 13.9 LAB L100.1400 37-47 % Normal HCT 42.4 LAB L100.1500 81-99 fL Normal MCV 94.6 LAB L100.1600 27.0-32.0 pg Normal MCH 31.0 LAB L100.1700 32-36 g/gl Normal MCHC 32.8 LAB L100.1810 11.6-14.6 % Normal RDW CV 14.1 LAB L100.1820 35.1-43.9 fl High RDW SD 47.2 LAB L100.1900 150-450 K/mm3 Normal PLT 297 LAB L100.2000 6.2-12.0 fl Normal MPV 9.5 LAB L100.2100 47-70 % Normal NEUT% 58.9 LAB L100.2200 19-41 % Normal LY% 28.1 LAB L100.2300 0-10 % Normal MONO% 8.8 LAB L100.2400 0-5 % Normal EO% 3.1 LAB L100.2500 0-1 % Normal BASO% 0.8 LAB L100.2550 0.0-0.9 % Normal IM GRAN % 0.300 Result Comment: IG% - Immature Granulocytes (promyelocytes, myelocytes and metamyelocytes) > 1% indicates that a LEFT SHIFT is Present. LAB L100.2620 2.0-7.7 X10 3/uL Normal Absolute Neut 5.3 LAB L100.2720 0.83-4.51 X10 3/ul Normal Absolute Lymph 2.53 Performed By: #### L100.0100 #### [facility] [address] [place], [address] 12 LEAD ELECTROCARDIOGRAM Observed: 04/03/2018 Status: F Source: PATEL 2:16 PM [facility] REPOSITORY [facility] Cardiovascular Services [address] [place] [address] 12 Lead EKG 03/28/18 1024 MR#: [id number] Acct: [id number] Name: PAULA LOPEZ Rep #: [id number] : 1950 67 From: Curry Costa MD Attending Dr: Moy FINLEY,Franklyn Status: [facility] Ordering Dr: Js Lozano MD Date: 03/29/18 Location: [facility] Sex: F C Admitted: Test Reason : POST PCI Blood Pressure : / mmHG Vent. Rate : 064 BPM Atrial Rate : 064 BPM P-R Int : 176 ms QRS Dur : 070 ms QT Int : 438 ms P-R-T Axes : 054 033 037 degrees QTc Int : 451 ms Normal sinus rhythm Low voltage QRS Borderline ECG When compared with ECG of 28-MAR-2018 07:28, MANUAL COMPARISON REQUIRED, DATA IS UNCONFIRMED Confirmed by PREETI FINLEY, CURRY ([id number]), features editor GENNA GALLO ([id number]) on 04/03/2018 2:16:32 PM Referred By: Franklyn Abbott Confirmed By:CURRY COSTA MD 04/03/18 1416 Date Curry Costa MD CC: Js Lozano MD; Sachin Almanza DO; Franklyn Abbott MD Signed 12 LEAD ELECTROCARDIOGRAM Observed: 04/03/2018 Status: F Source: PATEL 2:15 PM [facility] REPOSITORY [facility] Cardiovascular Services [address] [place] [address] 12 Lead EKG 03/29/18 0532 MR#: [id number] Acct: [id number] Name: PAULA LOPEZ Rep #: [id number] : 1950 67 From: Curry Costa MD Attending Dr: Franklyn Abbott MD Status: [facility] Ordering Dr: Js Lozano MD Date: 03/29/18 Location: [facility] Sex: F C Admitted: Test Reason : AM EKG Blood Pressure : / mmHG Vent. Rate : 065 BPM Atrial Rate : 065 BPM P-R Int : 180 ms QRS Dur : 072 ms QT Int : 428 ms P-R-T Axes : 068 056 063 degrees QTc Int : 445 ms Normal sinus rhythm Normal ECG When compared with ECG of 28-MAR-2018 10:24, MANUAL COMPARISON REQUIRED, DATA IS UNCONFIRMED Confirmed by CURRY COSTA MD ([id number]), features editor GENNA GALLO ([id number]) on 04/03/2018 2:15:37 PM Referred By: Franklyn Abbott Confirmed By:CURRY COSTA MD 04/03/18 1415 Date Curry Costa MD CC: Js Lozano MD; Sachin Almanza DO; Franklyn Abbott MD Signed 12 LEAD ELECTROCARDIOGRAM Observed: 03/30/2018 Status: F Source: [place] 2:25 PM [facility] REPOSITORY [facility] Cardiovascular Services [address] [place] [id number] Lead EKG 03/28/18 0728 MR#: [id number] Acct: [id number] Name: PAULA LOPEZ Rep #: [id number] : 1950 67 From: Franklyn Abbott MD Attending Dr: Franklyn Abbott MD Status: JHONATAN PRUITT Ordering Dr: Js Lozano MD Date: 03/28/18 Location: [facility] Sex: F C Admitted: Test Reason : PRE-CATH Blood Pressure : / mmHG Vent. Rate : 074 BPM Atrial Rate : 074 BPM P-R Int : 138 ms QRS Dur : 070 ms QT Int : 408 ms P-R-T Axes : 025 041 049 degrees QTc Int : 452 ms Normal sinus rhythm Normal ECG Confirmed by FRANKLYN ABBOTT MD ([id number]), features editor GENNA GALLO ([id number]) on 03/30/2018 2:24:28 PM Referred By: Franklyn Abbott Confirmed By:FRANKLYN ABBOTT MD 03/30/18 1424 Date Franklyn Abbott MD CC: Js Lozano MD; Sachin Almanza DO; Franklyn Abbott MD Signed DISCHARGE SUMMARY Observed: 03/29/2018 Status: F Source: [place] 10:34 AM [facility] REPOSITORY [facility] Medical Records Department [address] [place] [address] Discharge Summary 03/29/18 1031 MR#: [id number] Acct: [id number] Name: PAULA LOPEZ Rep #: [id number] : 1950 67 From: Franklyn Abbott MD PCP: Sachin Almanza DO Status: REG SDC Y Location: ICU [id number] Discharge Date and Diagnosis Date of Admission: 03/28/18 Date of Discharge: 03/29/18 - Primary Discharge Diagnosis CAD Status post LAD PCI - Secondary Discharge Diagnosis Chronic Problems (Last Reviewed 03/16/18 @ 13:09 by Sherrie Goldsmith) Presence of stent in coronary artery (Chronic 03/28/18) PTCA/ELFEGO to the 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) Type 2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(Chronic) Hypertension (Chronic) Diet-controlled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(Chronic) Hospital Course and Treatment Procedures: Cardiac catheterization - LAD PCI Summary of Care Provided: The patient is a 67 year old white female who has been undergoing outpatient cardiovascular evaluation for an abnormal stress nuclear imaging study with subsequent recommendations for further evaluation with diagnostic cardiac catheterization. This was performed on 03/28/2018. The patient was noted to have LAD disease and subsequently underwent LAD PCI/ELFEGO. The patient was monitored overnight without acute complication. The patient appeared symptomatically and hemodynamically stable and was felt able to be released home for continued outpatient cardiovascular follow-up. [] Discharge Diet: Low fat/ Low Cholesterol May resume sexual activity in: 1 week - if no groin problems occur. Additional Activity Instructions:: You must have someone drive you home. Do not drive until instructed by your doctor. You must have someone stay with you all night after your test. Rest in bed or on the couch until the next morning. Limit the number of times you go up and down stairs the day of your test. Call your doctor if your incision/area has: Continuous Slow Oozing, Increased Pain/ Swelling, Increased Redness, Foul Smelling Discharge, Swelling at the incision site Call your doctor if you observe: Fever of 101 or Higher, Shortness of breath, Chest pain Remove Dressing in (days):: 1 Cleanse incision/area with: Soap AND Water Additional Dressing/Incision Instructions:: Keep the dressing (bandage) on until the next morning. It is normal to have some tenderness and discomfort at the puncture site. Sometimes bruising also occurs. However, if pain, numbness, or coldness occurs below the puncture site (in your arms or fingers) call your doctor at once. You may have a small, marble sized knot at the puncture site. This is normal. Do not rub it. It will go away in 4-6 weeks. Bleeding can occur from the area where the puncture was done. Blood may spurt or drip from the site. If blood spurts, apply pressure right away to stop bleeding and call 911. Although rare, bleeding into the tissue (hematoma) can also occur. If this happens, a large, firm area goose egg under the skin will appear. If any of these occur, lie down as flat as you can and have someone apply firm pressure to the cath site with a gauze pad or a clean washcloth for 10-15 minutes. Call 911 or go to the Emergency Department. Home Medications: Medications to take at Discharge Furosemide [Lasix] 40 mg PO DAILY 12/22/14 Lisinopril [Zestril] 20 mg PO DAILY 12/22/14 Omeprazole [Prilosec] 20 mg PO DAILY 12/22/14 buPROPion SR [Wellbutrin SR (150mg tablets)] 150 mg PO QHS 12/22/14 Multivitamins,Therapeutic [Multivitamin] 1 tab PO DAILY 07/15/15 allopurinol 100 mg tablet 200 mg PO DAILYCM tab 03/15/18 citalopram 20 mg tablet 20 mg PO QDAY tab 03/15/18 dulaglutide 1.5 mg/0.5 mL subcutaneous pen injector 0.5 mg SC QWEEK ml 03/15/18 omega-3 fatty acids 1,000 mg capsule 1,000 mg PO QDAY 03/15/18 repaglinide 1 mg tablet 1 mg PO QDAY tab 03/15/18 aspirin 81 mg chewable tablet 81 mg PO QDAY #30 tab 03/16/18 clopidogrel 75 mg tablet 75 mg PO QDAY #30 tab 03/16/18 Aspirin E.C. [Ecotrin] 81 mg PO DAILY@0800 tablet 03/29/18 Clopidogrel Bisulfate [Plavix] 75 mg PO DAILY tablet 03/29/18 metoprolol tartrate 25 mg tablet 25 mg PO BID #60 tab 03/29/18 Primary Care Physician: Sachin Almanza DO [Primary Care Provider] - Please Follow Up With: Art Acevedo NP-C When: 04/11 at 0930 Additional Instructions: You will need to stay on Plavix for at least 12 months you will be referred to cardiac rehab Stop you Verapmil and start metoprolol 25 mg twice a day. I sent an Rx [facility]. Disposition: Home Minutes spent on discharge:: 30 Patient Condition:: Stable Medical Necessity - Tobacco Use Smoking Status: Never smoker Meaningful Use Info Meaningful Use Diagnoses (Choose all that apply): None applicable 03/29/18 1034 <Electronically signed by Franklyn Abbott MD> Date Franklyn Abbott MD Cosigner Signature (if applicable): Date CC: Sachin Almanza DO; Franklyn Abbott MD Signed DISCHARGE INSTRUCTION Observed: 03/29/2018 Status: F Source: [place] 9:16 AM [facility] REPOSITORY [facility] Medical Records Department [address] [place] [address] Instructions for Home/Discharge Instructions 03/29/18 0835 MR#: [id number] Acct: [id number] Name: PAULA LOPEZ Rep #: [id number] : 1950 67 From: Sherrie CHOUDHURY PCP: Sachin Almanza DO Status: REG [facility] Discharge Diet: Low fat/ Low Cholesterol Lifting Restrictions: 10 pounds and also avoid any pushing or pulling for 3 days after your test. Additional Activity Instructions:: You must have someone drive you home. Do not drive until instructed by your doctor. You must have someone stay with you all night after your test. Rest in bed or on the couch until the next morning. Limit the number of times you go up and down stairs the day of your test. Call your doctor if your incision/area has: Continuous Slow Oozing, Increased Pain/ Swelling, Increased Redness, Foul Smelling Discharge, Swelling at the incision site Call your doctor if you observe: Fever of 101 or Higher, Shortness of breath, Chest pain Remove Dressing in (days):: 1 Cleanse incision/area with: Soap AND Water Additional Dressing/Incision Instructions:: Keep the dressing (bandage) on until the next morning. It is normal to have some tenderness and discomfort at the puncture site. Sometimes bruising also occurs. However, if pain, numbness, or coldness occurs below the puncture site (in your arms or fingers) call your doctor at once. You may have a small, marble sized knot at the puncture site. This is normal. Do not rub it. It will go away in 4-6 weeks. Bleeding can occur from the area where the puncture was done. Blood may spurt or drip from the site. If blood spurts, apply pressure right away to stop bleeding and call 911. Although rare, bleeding into the tissue (hematoma) can also occur. If this happens, a large, firm area goose egg under the skin will appear. If any of these occur, lie down as flat as you can and have someone apply firm pressure to the cath site with a gauze pad or a clean washcloth for 10-15 minutes. Call 911 or go to the Emergency Department. Additional Instructions: You will need to stay on Plavix for at least 12 months you will be referred to cardiac rehab Stop you Verapmil and start metoprolol 25 mg twice a day. [facility] an Rx [facility]. Allergies/Adverse Reactions: Allergies naproxen [From Naprosyn] Adverse Reaction (Severe, Verified 03/16/18 13:04) INTERNAL BLEEDING prednisone Adverse Reaction (Severe, Verified 03/16/18 13:04) COMBINATION WITH NAPROXEN CAUSED INTERNAL BLEEDING exenatide [From Byetta] Adverse Reaction (Intermediate, Verified 03/16/18 13:04) Unknown ezetimibe [From Zetia] Adverse Reaction (Intermediate, Verified 03/16/18 13:04) Unknown fluticasone [From Flonase] Adverse Reaction (Intermediate, Verified 03/16/18 13:04) Unknown amoxicillin [From Augmentin] Adverse Reaction (Unknown, Verified 03/16/18 13:04) Unknown clavulanic acid [From Augmentin] Adverse Reaction (Unknown, Verified 03/16/18 13:04) Unknown clorazepate dipotassium [From Tranxene T-Tab] Adverse Reaction (Unknown, Verified 03/16/18 13:04) Unknown indomethacin [From Indocin] Adverse Reaction (Unknown, Verified 03/16/18 13:04) Unknown ketoprofen [From Oruvail] Adverse Reaction (Unknown, Verified 03/16/18 13:04) Unknown nizatidine [From Axid] Adverse Reaction (Unknown, Verified 03/16/18 13:04) Unknown ranitidine [From Zantac] Adverse Reaction (Unknown, Verified 03/16/18 13:04) Unknown rosuvastatin [From Crestor] Adverse Reaction (Unknown, Verified 03/16/18 13:04) Unknown sertraline [From Zoloft] Adverse Reaction (Unknown, Verified 03/16/18 13:04) Unknown sulfamethoxazole [From Septra] Adverse Reaction (Unknown, Verified 03/16/18 13:04) Unknown trimethoprim [From Septra] Adverse Reaction (Unknown, Verified 03/16/18 13:04) Unknown naldecon Adverse Reaction (Unknown, Uncoded 03/16/18 13:04) Unknown Medications to take at Discharge Furosemide [Lasix] 40 mg PO DAILY 12/22/14 Lisinopril [Zestril] 20 mg PO DAILY 12/22/14 Omeprazole [Prilosec] 20 mg PO DAILY 12/22/14 buPROPion SR [Wellbutrin SR (150mg tablets)] 150 mg PO QHS 12/22/14 Multivitamins,Therapeutic [Multivitamin] 1 tab PO DAILY 07/15/15 allopurinol 100 mg tablet 200 mg PO DAILYCM tab 03/15/18 citalopram 20 mg tablet 20 mg PO QDAY tab 03/15/18 dulaglutide 1.5 mg/0.5 mL subcutaneous pen injector 0.5 mg SC QWEEK ml 03/15/18 omega-3 fatty acids 1,000 mg capsule 1,000 mg PO QDAY 03/15/18 repaglinide 1 mg tablet 1 mg PO QDAY tab 03/15/18 aspirin 81 mg chewable tablet 81 mg PO QDAY #30 tab 03/16/18 clopidogrel 75 mg tablet 75 mg PO QDAY #30 tab 03/16/18 Aspirin E.C. [Ecotrin] 81 mg PO DAILY@0800 tablet 03/29/18 Clopidogrel Bisulfate [Plavix] 75 mg PO DAILY tablet 03/29/18 Metoprolol Tartrate [Lopressor (beta geovanna)] 25 mg PO BID tablet 03/29/18 Primary Care Physician: Sachin Almanza DO [Primary Care Provider] - Test Results: Test results from this visit will be discussed in further detail at your follow-up appointment, if applicable. Please Follow Up With: Art Acevedo NP-C When: 04/11 at 0930 Cardiac Rehabilitation Info Cardiac Rehabilitation Program Information: Cardiac Rehabilitation is important for patients like you who are recovering from a heart problem. Cardiac rehabilitation programs are recognized as integral to the continued care of the patient with coronary heart disease. The cardiac rehabilitation program is designed to optimize a patient's physical, psychological, and social functioning. Health critical care cns work in cardiac rehabilitation programs and assist you with getting the treatments you need to get stronger and healthier - like exercise, healthy eating habits, and medications. Cardiac rehabilitation has been show to help people with heart problems live longer and have better life enjoyment than people who do not go to cardiac rehabilitation. Please contact the Cardiac Rehabilitation Program at [facility] at in two weeks if you have not heard from them. 03/29/18 0916 <Electronically signed by Sherrie Castellano PA> Date Sherrie CHOUDHURY CC: Sachin Almanza DO BEDSIDE GLUCOSE Collected: 03/29/2018 Status: F Source: [place] 6:50 AM [facility] REPOSITORY TYPE CODE TESTS RESULT OUT OF RANGE REFERENCE UNITS LAB L501.080 70-110 mg/dL Normal BEDSIDE GLU 110 Result Comment: MANAGEMENT OF PATIENT CARE PER NURSING PROTOCOL Performed By: #### L501.080 #### [facility] Laboratory Point of Care [address] [place], [place] [address] CBC-COMPLETE BLOOD CNT Collected: 03/29/2018 Status: F Source: [place] NO DIFF 4:15 AM [facility] REPOSITORY TYPE CODE TESTS RESULT OUT OF RANGE REFERENCE UNITS LAB L100.1000 4.4-11.0 K/mm3 Normal WBC 5.9 LAB L100.1200 4.2-5.4 M/mm3 Low RBC 3.76 LAB L100.1300 12.0-15.0 g/dl Low HGB 11.9 LAB L100.1400 37-47 % Low HCT 36.2 LAB L100.1500 81-99 fL Normal MCV 96.3 LAB L100.1600 27.0-32.0 pg Normal MCH 31.6 LAB L100.1700 32-36 g/gl Normal MCHC 32.9 LAB L100.1810 11.6-14.6 % Normal RDW CV 14.2 LAB L100.1820 35.1-43.9 fl High RDW SD 48.2 LAB L100.1900 150-450 K/mm3 Normal PLT 222 LAB L100.2000 6.2-12.0 fl Normal MPV 9.2 Performed By: #### L100.0500 #### [facility] [address] [place], [place], [id number] BASIC METABOLIC Collected: 03/29/2018 Status: F Source: [place] PROFILE (BMP) 4:15 AM [facility] REPOSITORY TYPE CODE TESTS RESULT OUT OF RANGE REFERENCE UNITS LAB L501.0100 74-106 mg/dL Normal GLU 93 Result Comment: Please note revised GLUCOSE reference range effective 2017. LAB L501.1000 7-18 mg/dL High BUN 24 LAB L501.1100 0.55-1.02 mg/dL High CREAT,SERUM 1.43 Result Comment: The validity of the calculated GFR AND GFRAA in patients over 70 years has not been determined. Clinical correlation is essential. LAB L501.1110 >60 mL/min Low EST GFR 39 Result Comment: Non- GFR Calc LAB L501.1115 >60 mL/min Low EST GFR - AA 47 Result Comment: GFR Calc LAB L501.1255 ml/min Normal Estimated CRCL 29.78 LAB L501.1300 10-20 RATIO Normal BUN/CRE 16.8 LAB L501.2200 8.5-10 mg/dL Low .1 CA 8.4 LAB L501.5300 136-14 mmol/L Normal 5 NA 142 LAB L501.5600 3.5-5. mmol/L Normal 1 K 4.3 LAB L501.5900 98-107 mmol/L High CL 108 LAB L501.6100 21.0-3 mmol/L Normal 2.0 CO2 26.0 LAB L501.6200 5-15 Normal GAP 8 Performed By: #### L500.2500 #### [facility] [address] [place], [address] BEDSIDE GLUCOSE Collected: 03/28/2018 Status: F Source: [place] 9:23 PM [facility] REPOSITORY TYPE CODE TESTS RESULT OUT OF REFERENCE UNITS RANGE LAB L501.080 70-110 mg/dL High BEDSIDE GLU 122 Result Comment: MANAGEMENT OF PATIENT CARE PER NURSING PROTOCOL Performed By: #### L501.080 #### [facility] Point of Care [address] [place] [address] BEDSIDE GLUCOSE Collected: 03/28/2018 Status: F Source: [place]EL 4:03 PM [facility] REPOSITORY TYPE CODE TESTS RESULT OUT OF REFERENCE UNITS RANGE LAB L501.080 70-110 mg/dL Low BEDSIDE GLU 68 Result Comment: MANAGEMENT OF PATIENT CARE PER NURSING PROTOCOL Performed By: #### L501.080 #### [facility] Point of Care [address] [place] [address] BEDSIDE GLUCOSE Collected: 03/28/2018 Status: F Source: PATEL 11:57 AM [facility] REPOSITORY TYPE CODE TESTS RESULT OUT OF RANGE REFERENCE UNITS LAB L501.080 70-110 mg/dL Normal BEDSIDE GLU 85 Result Comment: MANAGEMENT OF PATIENT CARE PER NURSING PROTOCOL Performed By: #### L501.080 #### [facility] Laboratory Point of Care [address] [place] [address] M R STAPH AUREUS Collected: 03/28/2018 Status: F Source: [place] DNA BY PCR 10:35 AM [facility] REPOSITORY TYPE CODE TESTS RESULT OUT OF RANGE REFERENCE UNITS LAB L8200.1100 Negative Normal MRSA Negative RESULT Performed By: #### L8200.1000 #### [facility] [address] [place], [address] ACT ACTIVATED CLOTTING Collected: 03/28/2018 Status: F Source: [place] TIME 9:54 AM [facility] REPOSITORY TYPE CODE TESTS RESULT OUT OF RANGE REFERENCE UNITS LAB L9100.0100 74-137 sec High ACTk CLOT 235 TIME Performed By: #### L9100.0100 #### [facility] Point of Care [address] [place] [address] ACT ACTIVATED CLOTTING Collected: 03/28/2018 Status: F Source: [place] TIME 9:27 AM [facility] REPOSITORY TYPE CODE TESTS RESULT OUT OF RANGE REFERENCE UNITS LAB L9100.0100 74-137 sec High ACTk CLOT 191 TIME Performed By: #### L9100.0100 #### [facility] Point of Care [address] [place] [address] ECHO, COMPLETE W/ Observed: 03/24/2018 Status: F Source: [place] CONTRAST 5:01 PM [facility] REPOSITORY [facility] Cardiovascular Services [address] [place] [address] Echo Complete W/ Contrast 03/24/18 1050 MR#: [id number] Acct: [id number] Name: PAULA LOPEZ Rep #: [id number] : 1950 67 From: Franklyn Abbott MD Attending Dr: Franklyn Abbott MD Status: REG CLI Ordering Dr: Franklyn Abbott MD Date: 03/24/18 Location: [facility] Sex: F C Admitted: Reason For Study: Dyspnea/SOB Procedure This was a 2D Doppler, Color Flow transthoracic echocardiogram. The exam was of poor technical quality due to body habitus. The study was technically difficult. Contrast injection was performed. Exam performed in department. Left Ventricle Normal LV size. Left ventricular systolic function is normal. The estimated ejection fraction is 65 %. Diastolic function: considered indeterminate. No regional wall motion abnormalities noted. Right Ventricle Normal RV size. Normal systolic function. Atria The left atrium is mildly enlarged. Normal right atrium. No doppler evidence for ASD. Mitral Valve There is no mitral annular calcification. Normal mitral valve. Trivial mitral valve insufficiency. Tricuspid Valve Normal tricuspid valve. Trivial tricuspid valve insufficiency. Right ventricular systolic pressure estimated to be 34 mmHg. Aortic Valve Trisinus/trileaflet aortic valve. Mild focal aortic valve thickening. Pulmonic Valve The pulmonic valve is not well visualized. Great Vessels Normal sized aortic root. Pericardium/Pleural No pericardial effusion. Medication 22 gauge I.V. with prn adaptor inserted into right arm. Diluted definity 2ml given slow IV push to enhance endocardial definition. MMode/2D Measurements AND Calculations LVIDd: 5.0 cm IVSd: 1.3 cm LVOT diam: 2.0 cm LVIDs: 3.1 cm LVPWd: 0.80 cm LVOT area: 3.0 cm2 FS: 37.1 % Ao root diam: 3.3 cm LAV(MOD-bp): 51.3 ml LA A4 area: 19.4 cm2 LA dimension: 3.0 cm LAV(MOD-bp) Indexed: 22.4 ml/m2 LAV(MOD-sp2): 43.7 ml LAV(MOD-sp4): 47.4 ml RA A4 area: 12.4 cm2 Time Measurements MV dec time: 0.22 sec Doppler Measurements AND Calculations MV E max rishi: 103.4 cm/sec Lat Peak E' Rishi: 11.9 cm/sec Med Peak E' Rishi: 9.4 cm/sec MV A max rishi: 102.3 cm/sec E/E' lat: 8.7 E/E' med: 11.0 MV E/A: 1.0 MV V2 max: 110.7 cm/sec MV P1/2t max rishi: 110.7 cm/sec Ao V2 max: 146.2 cm/sec MV max P.9 mmHg MV P1/2t: 77.3 msec Ao max P.6 mmHg MV V2 mean: 71.7 cm/sec MV dec slope: 419.8 cm/sec2 Ao V2 mean: 100.0 cm/sec MV mean P.3 mmHg MVA(P1/2t): 2.8 cm2 Ao mean P.4 mmHg MV V2 VTI: 34.1 cm Ao V2 VTI: 29.5 cm MVA(VTI): 1.8 cm2 CHRISTINA(I,D): 2.1 cm2 CHRISTINA(V,D): 2.0 cm2 LV V1 max: 96.6 cm/sec SV(LVOT): 62.3 ml PA V2 max: 96.3 cm/sec LV V1 max P.7 mmHg LV V1 mean P.8 mmHg LV V1 mean: 63.2 cm/sec LV V1 VTI: 20.6 cm TR max rishi: 276.1 cm/sec TR max P.5 mmHg Interpretation Summary The study was technically difficult. Contrast injection was performed. Left ventricular systolic function is normal. The estimated ejection fraction is 65 %. The left atrium is mildly enlarged. Trivial mitral valve insufficiency. Trivial tricuspid valve insufficiency. Mild focal aortic valve thickening. Right ventricular systolic pressure estimated to be 34 mmHg. Diastolic function: considered indeterminate. Ordering Physician: Franklyn Abbott Referring Physician: Franklyn Abbott Performed By: Angel Moreno RCS 03/24/181700 Date Franklyn Abbott MD CC: Sachin Almanza DO; Franklyn Abbott MD Date Dictated: 03/24/18 1050 Date Transcribed: 03/24/181700 Global [employer] Executive: Signed PT D/C SUMMARY (1) Observed: 03/23/2018 Status: F Source: PATEL 10:54 AM [facility] REPOSITORY [facility] Physical Therapy [address] [place] [address] Fax REHABILITATION SERVICES DISCHARGE SUMMARY MR#: [id number] Acct: [id number] Name: PAULA LOPEZ Rep #: [id number] : 1950 67 From: Ervin WASHINGTONT, OCS, CSCS Referring Dr.: Kevon Moon MD Status: REG RCR Insurance: MEDICARE PART A B AARP HP - PT D/C Summary It has been my pleasure to treat PAULA LOPEZ under orders from Kevon Moon, for the diagnosis of R knee pain for a total of 6 visit(s). Discharge Date: 03/23/18 Please see the following information for a summary of their discharge status. - Subjective Subjective: Improved, Don't have the terrible pain in knee and down leg. Still has R knee pain. LBP still painful R side. Forgot cane today. No f/u scheduled with doctor. Wants to stop therapy - Pain R knee Pain Intensity (Out of 10): 0 Lumbar Spine Pain Intensity (Out of 10): 8 - Overall Improvement % Improvement: 80 - Objective Objective/Function: 122 L knee ROM 118 R. Walks I without assist, no antalgia this am. strength R knee flex adn ext 4+/5 without pain this morning. OVERALL DOING WONDERFUL. I AM SKEPTICAL THAT SHE WILL MAINTAIN IMPROVEMENTS WITHOUT CONTINUING IN THE WATER BUT SHE WISHES TO BE D/C AND MOVE ON WITH LIFE. - Goals Goal 1:: Patient I in approp correction pool ex for management of knee pain Goal Progress: Goal Met Goal 2:: Patietn maintain improvement given bu injections in R knee at 0-1/10 pain. Goal Progress: Progressing Goal 3:: Patient walk and stand for 45 minutes without increased pain to play with grandchildren. Goal Progress: minutes only - Plan Plan: D/C AT PATIENT REQUEST. - D/C Information Discharge Comments: dOING WELL AND RECOMMENEDED CONTINUING IN POOL I. pATIENT WANTS TO TRY TO GET BACK TO LIFE WIHTOUT EX IN POOL AND WILL LET DOCTOR KNOW IF PAIN RETURNS AGAIN. If there are questions or concerns regarding this patient's physical therapy, please feel free to call me at [phone]. Thank you for the referral of this patient. Sincerely, Ervin Zamora, PADMINIT, OC <Electronically signed by Ervin Zamora DPT, OCS, CSCS> 03/23/18 1054 CC: Kevon Moon MD; Sachin Guerraman EBG Signed CBC W/DIFF, AUTOMATED Collected: 03/16/2018 Status: F Source: [place] 3:34 PM [facility] REPOSITORY TYPE CODE TESTS RESULT OUT OF RANGE REFERENCE UNITS LAB L100.1000 4.4-11.0 K/mm3 Normal WBC 10.2 LAB L100.1200 4.2-5.4 M/mm3 Normal RBC 4.39 LAB L100.1300 12.0-15.0 g/dl Normal HGB 13.3 LAB L100.1400 37-47 % Normal HCT 41.1 LAB L100.1500 81-99 fL Normal MCV 93.6 LAB L100.1600 27.0-32.0 pg Normal MCH 30.3 LAB L100.1700 32-36 g/gl Normal MCHC 32.4 LAB L100.1810 11.6-14.6 % Normal RDW CV 13.9 LAB L100.1820 35.1-43.9 fl High RDW SD 47.6 LAB L100.1900 150-450 K/mm3 Normal PLT 281 LAB L100.2000 6.2-12.0 fl Normal MPV 9.6 LAB L100.2100 47-70 % Normal NEUT% 64.9 LAB L100.2200 19-41 % Normal LY% 24.2 LAB L100.2300 0-10 % Normal MONO% 7.6 LAB L100.2400 0-5 % Normal EO% 2.7 LAB L100.2500 0-1 % Normal BASO% 0.5 LAB L100.2550 0.0-0.9 % Normal IM GRAN % 0.100 Result Comment: IG% - Immature Granulocytes (promyelocytes, myelocytes and metamyelocytes) > 1% indicates that a LEFT SHIFT is Present. LAB L100.2620 2.0-7.7 X10 3/uL Normal Absolute Neut 6.6 LAB L100.2720 0.83-4.51 X10 3/ul Normal Absolute Lymph 2.47 Performed By: #### L100.0100, L300.3900, L300.4310, L500.2500 #### [facility] Laboratory [address] [place], [place], [address] PROTHROMBIN TIME W/INR Collected: 03/16/2018 Status: F Source: PATEL 3:34 PM [facility] REPOSITORY TYPE CODE TESTS RESULT OUT OF RANGE REFERENCE UNITS LAB L300.4150 11.7-14.9 SECONDS Normal PROTIME 13.1 LAB L300.4200 Normal INR 1.0 Performed By: #### L100.0100, L300.3900, L300.4310, L500.2500 #### [facility] Laboratory [address] [place], [address] PARTIAL THROMBOPLAST Collected: 03/16/2018 Status: F Source: PATEL TIME 3:34 PM [facility] REPOSITORY TYPE CODE TESTS RESULT OUT OF RANGE REFERENCE UNITS LAB L300.4310 24.1-36.2 Seconds Normal PTT 29.9 Performed By: #### L100.0100, L300.3900, L300.4310, L500.2500 #### [facility] Laboratory [address] [place], [address] BASIC METABOLIC Collected: 03/16/2018 Status: F Source: [place] PROFILE (BMP) 3:34 PM [facility] REPOSITORY TYPE CODE TESTS RESULT OUT OF RANGE REFERENCE UNITS LAB L501.0100 74-106 mg/dL Normal GLU 83 Result Comment: Please note revised GLUCOSE reference range effective 2017. LAB L501.1000 7-18 mg/dL High BUN 31 LAB L501.1100 0.55-1.02 mg/dL High CREAT,SERUM 1.52 Result Comment: The validity of the calculated GFR AND GFRAA in patients over 70 years has not been determined. Clinical correlation is essential. LAB L501.1110 >60 mL/min Low EST GFR 36 Result Comment: Non- GFR Calc LAB L501.1115 >60 mL/min Low EST GFR - AA 44 Result Comment: GFR Calc LAB L501.1300 10-20 RATIO High BUN/CRE 20.4 LAB L501.2200 8.5-10.1 mg/dL CA Normal 9.2 LAB L501.5300 136-145 mmol/L NA Normal 138 LAB L501.5600 3.5-5.1 mmol/L K Normal 4.0 LAB L501.5900 98-107 mmol/L CL Normal 104 LAB L501.6100 21.0-32.0 mmol/L Normal CO2 24.0 LAB L501.6200 5-15 Normal GAP 10 Performed By: #### L100.0100, L300.3900, L300.4310, L500.2500 #### [facility] Laboratory [address] [place], [address] CHEST PA AND LATERAL Observed: 03/16/2018 Status: F Source: [place] 3:00 PM [facility] REPOSITORY [facility] Imaging Services [address] [place] [address] Chest PA and Lateral MR#: [id number] Acct: [id number] Name: PAULA LOPEZ Rep #: [id number] : 1950 F 67 From: Jose Pritchett DO PCP: Sachin Almanza DO Status: PRE SDC Study: Chest PA and Lateral Date of Exam: 03/16/18 Exam# [id number] Ordering Dr: Franklyn Abbott MD STUDY: X-RAY CHEST REASON FOR EXAM: Female, 67 years old. Increased shortness of breath, rapid heart rate TECHNIQUE: PA and lateral views of the chest. COMPARISON: None. FINDINGS: Small calcified granulomas are seen at the left lung base. The lungs are otherwise clear. There is no demonstrated pleural abnormality. Normal size heart. Normal mediastinum and meg. Normal visualized pulmonary arteries. There is atherosclerotic calcification of the aortic arch with tortuosity. There are diffuse degenerative changes of the visualized thoracic spine. There is degenerative osteoarthritis of the bilateral shoulders. There is no demonstrated abnormality of the visualized soft tissue structures of the upper abdomen. RAD/Chest PA and Lateral IMPRESSION: Degenerative changes, as described above. No demonstrated acute cardiopulmonary process. Old granulomatous disease. Electronically Signed: Jose Pritchett DO at 8:54 EDT Tel , Service support , CC: Sachin Almanza DO; Franklyn Abbott MD Global Sales Executive: Signed CARDIOLOGY VISIT Observed: 03/16/2018 Status: F Source: PATEL REPORT 2:11 PM [facility] REPOSITORY [facility] [address] [place] [address] OFFICE VISIT Date of Service: 03/16/18 MR#: [id number] Acct: [id number] Name: PAULA LOPEZ Rep #: [id number] : 1950 Provider: Franklyn Abbott MD Age/Sex: 67/F [place] [facility] [place] Status: Signed HPI HPI Details: PAULA LOPEZ, is a 67 F who presents to the office today for for outpatient cardiovascular consultation based on concerns of shortness of breath/dyspnea, palpitations, as well as an abnormal pharmacologic stress nuclear imaging study. She states the best of her knowledge she has not been definitively diagnosed with cardiovascular disease in the past. It appears that in July 2012 she underwent evaluation with a transthoracic echocardiogram. At that time the left ventricle was normal with an LVEF of 60% with mild MR and mild TR and an estimated RV systolic pressure of 35 mmHg. In June 2012 she had through the [facility] system and exercise tolerance test/imaging study. According to the report she had a pharmacologic stress nuclear imaging study that demonstrated no evidence of ischemia or infarction and normal global and regional left ventricular function. She does not believe she has ever undergone evaluation with a diagnostic cardiac catheterization. She was treated with medication to treat underlying gastrointestinal related issues. She states overall she did better. Recently she has noted shortness of breath and dyspnea with exertional activity. She is also noted occasionally at night the sensation of her heart beating. She has not had any orthopnea or PND or worsening peripheral pitting edema. There has been no near syncope or syncope. She recently underwent a pharmacologic stress nuclear imaging study. She had an area which appeared compatible with previous myocardial injury/infarction involving portions of the mid anterior, basal to mid lateral, and lateral apical segments with post stress myocardial perfusion changes appearing compatible with mansoor-infarct related myocardial ischemia although contribution from soft tissue attenuation/artifact could not be excluded. Today she had an ECG in the office. She was in normal sinus rhythm. She had no acute ECG changes. 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 DR. ALMANZA Allergies naproxen [From Naprosyn] Adverse Reaction (Severe, Verified 03/16/18 13:04) INTERNAL BLEEDING prednisone Adverse Reaction (Severe, Verified 03/16/18 13:04) COMBINATION WITH NAPROXEN CAUSED INTERNAL BLEEDING exenatide [From Byetta] Adverse Reaction (Intermediate, Verified 03/16/18 13:04) Unknown ezetimibe [From Zetia] Adverse Reaction (Intermediate, Verified 03/16/18 13:04) Unknown fluticasone [From Flonase] Adverse Reaction (Intermediate, Verified 03/16/18 13:04) Unknown amoxicillin [From Augmentin] Adverse Reaction (Unknown, Verified 03/16/18 13:04) Unknown clavulanic acid [From Augmentin] Adverse Reaction (Unknown, Verified 03/16/18 13:04) Unknown clorazepate dipotassium [From Tranxene T-Tab] Adverse Reaction (Unknown, Verified 03/16/18 13:04) Unknown indomethacin [From Indocin] Adverse Reaction (Unknown, Verified 03/16/18 13:04) Unknown ketoprofen [From Oruvail] Adverse Reaction (Unknown, Verified 03/16/18 13:04) Unknown nizatidine [From Axid] Adverse Reaction (Unknown, Verified 03/16/18 13:04) Unknown ranitidine [From Zantac] Adverse Reaction (Unknown, Verified 03/16/18 13:04) Unknown rosuvastatin [From Crestor] Adverse Reaction (Unknown, Verified 03/16/18 13:04) Unknown sertraline [From Zoloft] Adverse Reaction (Unknown, Verified 03/16/18 13:04) Unknown sulfamethoxazole [From Septra] Adverse Reaction (Unknown, Verified 03/16/18 13:04) Unknown trimethoprim [From Septra] Adverse Reaction (Unknown, Verified 03/16/18 13:04) Unknown naldecon Adverse Reaction (Unknown, Uncoded 03/16/18 13:04) Unknown Medications Furosemide [Lasix] 40 mg PO DAILY 12/22/14 [History Confirmed 03/16/18] Lisinopril [Zestril] 20 mg PO DAILY 12/22/14 [History Confirmed 03/16/18] Omeprazole [Prilosec] 20 mg PO DAILY 12/22/14 [History Confirmed 03/16/18] buPROPion SR [Wellbutrin Sr] 150 mg PO QHS 12/22/14 [History Confirmed 03/16/18] Multivitamins,Therapeutic [Multivitamin] 1 tab PO DAILY 07/15/15 [History Confirmed 03/16/18] allopurinol 100 mg tablet 200 mg PO DAILYCM tab 03/15/18 [History Confirmed 03/16/18] citalopram 20 mg tablet 20 mg PO QDAY tab 03/15/18 [History Confirmed 03/16/18] dulaglutide 1.5 mg/0.5 mL subcutaneous pen injector 0.5 mg SC QWEEK ml 03/15/18 [History Confirmed 03/16/18] omega-3 fatty acids 1,000 mg capsule 1,000 mg PO QDAY 03/15/18 [History Confirmed 03/16/18] repaglinide 1 mg tablet 1 mg PO QDAY tab 03/15/18 [History Confirmed 03/16/18] verapamil 80 mg tablet 80 mg PO QDAY tab 03/15/18 [History Confirmed 03/16/18] aspirin 81 mg chewable tablet 81 mg PO QDAY #30 tab 03/16/18 [Rx Confirmed 03/16/18] clopidogrel 75 mg tablet 75 mg PO QDAY #30 tab 03/16/18 [Rx Confirmed 03/16/18] [facility] Medical History 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) Type 2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(Chronic) CKD (chronic kidney disease) stage 3, GFR 30-59 ml/min (Chronic) GERD (gastroesophageal reflux disease) (Chronic) Gout (Chronic) Hypertension (Chronic) Osteoarthritis (Chronic) Sleep apnea (Chronic) Surgical History History of cholecystectomy (Resolved) Hx of appendectomy (Resolved) Family History Mother Hypertension Myocardial infarction CAD (coronary artery disease) Father Angina pectoris Social History Smoking Status: Never smoker alcohol intake: never substance use type: does not use ROS Const Const: Positive for fatigue (increased) and weakness (rt knee issues causing weakness); negative for weight gain, weight loss, frequent falls or excessive sweating Eyes Eyes: Negative for change in vision, blurry vision or transient loss of vision ENT ENT: Positive for dizziness (occasional up with ambulation) and balance problems (ambulates with cane) Cardio Chest Pain: No Palpitations: Yes feels like its: fast Edema: Bilateral (slight) Muscle aches with walking: None Resp Respiratory: Positive for SOB with activity (increased); negative for SOB at rest GI GI: Negative vomiting or vomiting blood/hematemesis : Negative for hematuria Musc Musc: Positive for balance problems (ambulates with cane); negative for muscle aches/ myalgia, muscle weakness or joint pain Skin Skin: Negative non-healing lesions or rash Neuro Neuro: Positive for weakness (rt knee issues causing weakness), dizziness (occasional up with ambulation) and lightheadedness; negative for blurry vision, frequent falls or orthostatic symptoms Tom Hematologic/Lymphatic: Negative for easy bleeding Endo Endo: Positive for fatigue (increased); negative for excessive sweating Psych Psych: Negative for anxiety or depression Allergy Allergy/Immunology: Negative for hives, Negative for rash Cardiology Exam Const Appearance: cooperative, comfortable, no acute distress, well developed and well groomed Nutritional Appearance: obese Orientation: alert, awake and oriented x3 Head Head: normal to inspection, normocephalic and atraumatic Ears: hearing grossly normal bilaterally Nose: external nose normal Face and Sinus: face symmetric Mouth: oral mucosae normal Teeth and gingiva: fair dentition Eyes Eyelids: eyelids normal Conjunctivae: conjunctivae normal Pupils: PERRL EOM: EOM intact bilaterally Neck Neck: normal visual inspection and full ROM Carotids: normal carotid upstroke Chest Chest inspection: normal inspection of the chest and symmetric chest movement Auscultation: Bilateral: Clear to Auscultation Cardio Palpation: normal PMI Rate: regular rate Rhythm: regular rhythm Heart sounds: S1 normal and S2 normal GI GI: obese, normal to inspection, bowel sounds present and soft Neuro General: alert, awake and oriented x3 Skin Skin: no rashes or lesions noted Extremities Pulses: Normal: Right Radial Pulse, Left Radial Pulse Lower Extremity Edema: None: Bilateral Psych Psychological: normal affect Assessment AND Plan 1. Abnormal cardiovascular stress test R94.39 Plan At the present time she does have an abnormal pharmacologic stress nuclear imaging study. Based upon her cardiovascular risk factors, symptoms, etc. it was felt prudent that she undergo further evaluation. This will include an echocardiogram to assess her left ventricular wall motion and systolic function. It will also include a diagnostic cardiac catheterization to evaluate her coronary anatomy. Based upon concerns of underlying chronic renal insufficiency, depending upon her creatinine level, she may have coronary angiography with no left ventriculogram. Depending upon her findings she may or may not need further cardiac evaluation if she truly does have underlying CAD. If not then she may need further noncardiac evaluation of her shortness of breath/dyspnea with further pulmonary evaluation. In the interim she will be placed on medical management with aspirin 81 mg a day and clopidogrel/Plavix 75 mg a day. Orders Orders: 2. Shortness of breath R06.02 Plan She does have shortness of breath. Again this may be multifactorial. There may be a component based upon age, weight, cardiovascular disease, pulmonary related issues, etc. At the present time she will continue her cardiovascular evaluation as noted above. She knows, from previous conversations with her physicians, to bring her weight under better control. This is challenging for her. Again depending upon her cardiac evaluation, if this is unrevealing, she may need further pulmonary evaluation of her shortness of breath and dyspnea. Orders Orders: 3. Hyperlipidemia, unspecified hyperlipidemia type E78.5 Plan She does have an underlying history of hyperlipidemia. She states she has been intolerant to every lipid-lowering medication. Thus she has tried to modify her lipids by her dietary therapy. 4. Essential hypertension I10 Plan She does have a history of hypertension. She is on multiple medications for her blood pressure. Orders Orders: 5. Diabetes mellitus, type II E11.9 Plan She is under the care of her primary care physician for her diabetes mellitus. 6. Renal insufficiency N28.9 Plan Her renal function will be reassessed prior to proceeding further with her diagnostic cardiac catheterization. Plan Detail Other Orders Orders: Other Medications New: Additional Comments The above was discussed with the patient and her spouse. They were both agreeable to this approach. Thank you for allowing me to participate in the care of your patient. Please don't hesitate to call if any issues arise. This note was generated using a voice recognition system and there may be incorrect words, spelling or punctuation that were not noted when reviewing the office note prior to saving. Follow Up 3 Months Coding Level of Care Code Off vis,new,level 5 Diagnoses Abnormal cardiovascular stress test R94.39 Shortness of breath R06.02 Hyperlipidemia, unspecified hyperlipidemia type E78.5 Hyperlipidemia type: unspecified Essential hypertension I10 Hypertension type: essential hypertension Diabetes mellitus, type II E11.9 Renal insufficiency N28.9 Coding Level of Care Code Off vis,new,level 5 Diagnoses Abnormal cardiovascular stress test R94.39 Shortness of breath R06.02 Hyperlipidemia, unspecified hyperlipidemia type E78.5 Hyperlipidemia type: unspecified Essential hypertension I10 Hypertension type: essential hypertension Diabetes mellitus, type II E11.9 Renal insufficiency N28.9 03/16/18 1411 <Electronically signed by Franklyn Abbott MD> Date Franklyn Abbott MD Cosigner Signature: Date (if applicable) CC: Sachin Almanza DO VENOUS DUPLEX LOWER Observed: 03/14/2018 Status: F Source: [place] EXTREMITY 3:41 PM [facility] REPOSITORY [facility] Cardiovascular Services [address] [place] [id number] Venous Duplex US, Unilateral 03/14/18 1426 MR#: [id number] Acct: [id number] Name: PAULA LOPEZ Rep #: [id number] : 1950 67 From: Colton Banegas MD Attending Dr: Sachin Almanza DO Status: REG CLI Ordering Dr: Sachin Almanza DO Date: 03/14/18 Location: [facility] Sex: F C Admitted: Reason For Study: pain RIGHT LEFT GSV is normal. CFV is compressible, spontaneous, phasic, CFV is compressible, spontaneous, phasic, competent, and demonstrates normal competent and demonstrates normal augmentation. augmentation. FV is compressible, spontaneous, phasic, competent and demonstrates normal augmentation. POP V is compressible, spontaneous, phasic, competent and demonstrates normal augmentation. T/P Trunk is compressible. PTV is compressible. RT PerV is compressible. Procedure Exam performed in department. The exam was diagnostic. A preliminary report was called and/or faxed to Dr. Almanza. Interpretation Summary Deep veins of the right lower extremity are patent and compressible segmentally. There is no evidence of right lower extremity deep vein thrombosis. Valvular competence appears intact within the proximal deep venous system on the right . The right greater saphenous vein appears patent and compressible segmentally. Ordering Physician: Sachin Almanza Performed By: Chaim Bacon, RVT 03/14/18 1540 Date Colton Banegas MD CC: Sachin Almanza DO Date Dictated: 03/14/18 1426 Date Transcribed: 03/14/18 1540 Global Sales Executive: Signed INITAL EVALUATION (1) Observed: 02/28/2018 Status: F Source: [place] - PT 9:03 AM [facility] REPOSITORY [facility] Physical Therapy [facility] [address] [place] [address]. [address] [place], [place] [id number] Fax REHABILITATION SERVICES INITIAL EVALUATION MR#: [id number] Acct: [id number] Name: PAULA LOPEZ Rep #: [id number] : 1950 67 From: Ervin Zamora DPT, OCS, CSCS Referring Dr.: Kevon Moon MD Status: REG RCR Insurance: MEDICARE PART A B [facility] Patient's Visit Information PAULA LOPEZ is a 67 year old F referred to Physical Therapy by Kevon Moon with a diagnosis of R knee pain. Date of Evaluation: 02/17/18 Physical Therapist: Ervin Zamora DPT, OC - Visit Plan Frequency: 2x /Week Duration: 4-6 Weeks Plan: 2x/week for 4-6 for AT... Quad and SH adn gastroc stretches. knee ROM. LE strength. Postural strength. all in pool and porgress to I with Natali Sneakers. - Subjective Subjective: R knee hurts. 2008 was cleaned out with similar symptoms. Had gel shots recently which has improved it. Was having bad pain down R knee and into lower leg. worse with walking in B Knees and LB. Getting up and down from chair is hard. Sleeping Ok since gel shots but was up at night prior. Last shot was a week ago. May need a knee replacement. Was 10/10 for two weeks prior to injections. Not employed. Housework is main activity and steps and laundry in basement causes more pain. Hard to walk on uneven gorund to mow. No exercises. Basic ADLs are getting done but needs to rest alot. Dressing and cooking OK, needs rest. Can stand now 30 minutes, walking is limited to much less than 30 minutes. Looks for benches at [email or web address] with grandkids. - Pain R knee Pain Intensity (Out of 10): 0 Pain Intensity Range: 0, 10 - Objective Uses cane R UE. Minor R antalgia. Walks I on firm flat surface with cane adn without is is lightly more painful but safe. steps are using L up due to pain, descends with R leading, needs rails. Hip and ankle aROM WFL, knee AROM 0-112 B with pulling andterior R knee at end range. quads and HS mod tight, gastroc min tight. reflexes 2/3 bi and tri. Sensation WNL to gross light touch in LE. Strength is 4- in R hip and L hip. R knee 3+ knee ext adn 4- L, flexion is 4- B with some pain R. Ankle strength 4-/5. Tender to touch R medial knee joint line adn with patellar grind. - Goals Goal 1:: Patient I in approp store deli manager pool ex for management of knee pain Goal 2:: Patietn maintain improvement given bu injections in R knee at 0-1/10 pain. Goal Time Frame: 4-6 Weeks Goal 3:: Patient walk and stand for 45 minutes without increased pain to play with grandchildren. Goal Time Frame: 4-6 Weeks - Rehabilitation Potential Physical Therapy Diagnosis: R knee pain from degeneration. Appropriate for pool therapy and progress to correction I. Rehabilitation Potential: Fair - Anticipated Interventions Patient/Client Instruction: Educate patient on: Condition, Plan of Care For the Purpose of:: To decrease pain, To increase tolerance to activity/condition/position Therapeutic Exercise to Include: Strength training, Flexibilty training, In an aquatic setting, Active ROM For the Purpose of:: To decrease pain, To increase ROM, To improve nutrient delivery to tissue, To improve muscle performance and motor function, To improve ability of physical actions for home/community/work/leisure Thank you for the opportunity to evaluate your patient. For Medicare and Medicare HMO plans, please review the plan of care and approve it. It will need to be FAXED BACK to us at [phone] for Medicare purposes. Please let me know if there are questions or concerns regarding this plan of care. Physician Signature: Date: <Electronically signed by Ervin Zamora DPT, OCS, CSCS> 02/28/18 0903 CC: Kevon Moon MD; Sachin Almanza DO EBG Signed For Medicare only, by signing this I certify the plan of care. Physicians Signature Date PROGRESS Observed: 01/27/2018 Status: COMPLETED Source: [place] 12:01 PM [facility] REPOSITORY O ID: [id number] Author: Lexy Rivera Cma Service: (none) Author Type: (none) Type: Progress Notes Filed: 01/27/2018 12:01 PM Note Text: Patient has different PCP listed CNPTOUTREACH Observed: 01/27/2018 Status: COMPLETED Source: [place] 12:00 AM [facility] REPOSITORY Patient Outreach (INTM[facility]) PAULA LOPEZ ([id number]) 1950 F Date Time Provider Department 01/27/18 LEXY RIVERA) INTM[facility] During your visit today, we recorded the following information about you: Lexy Rivera Cma 01/27/2018 12:01 PM Signed Patient has different PCP listed Allergies As of Date: 01/27/2018 Noted Allergy Reaction NAPROXYN (NAPROXEN) 11/26/2008 10 - Anaphylaxis Comments: given at the same time as prednisone, cannot take together. Had internal bleeding. PREDNISONE 11/26/2008 Comments: Cannot be given with Naproxy, had severe internal bleeding was hospitalized. AUGMENTIN (AMOXICILLIN-POT CLAVUL*07/22/2005 8 - GI Upset Comments: Possibly GI. Can tolerate PCN and Amoxicillin AXID (NIZATIDINE) 07/22/2005 BYETTA (EXENATIDE) 05/19/2011 8 - GI Upset Comments: chronic abdominal pain, possibly low level pancreatitis? CRESTOR (ROSUVASTATIN CALCIUM) 07/22/2005 Comments: Muscle cramps FLONASE (FLUTICASONE PROPIONATE) 07/22/2005 Comments: headaches INDOCIN (INDOMETHACIN SODIUM) 07/22/2005 MOBIC (MELOXICAM) 02/24/2016 14 - Other: See Comments Comments: Problems with kidneys NALDECON SENIOR EX (GUAIFENESIN) 07/22/2005 NEOMYCIN 07/22/2005 ORUVAIL (KETOPROFEN) 07/22/2005 SEPTRA (SULFAMETHOXAZOLE-TRIMETHO*07/22/2005 OLMWCDQ-MNG-FVP REDUCTASE INHIBIT*06/10/2014 14 - Other: See Comments Comments: myalgia TRANXENE-SD (CLORAZEPATE DIPOTASS*07/22/2005 Comments: unknown ZANTAC (RANITIDINE HCL) 07/22/2005 ZETIA (EZETIMIBE) 07/22/2005 Comments: Joint Stiffness ZOLOFT (SERTRALINE HCL) 07/22/2005 Comments: unknown Date Reviewed: 03/07/2017 Reviewed by: Carolina Justin Cma Fully Assessed Reason for Visit: PHMA/Care Gap Outreach [3605] Primary Visit Diagnosis:Screening mammogram, encounter for [Z12.31] Other Visit Diagnoses:Type 2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with stage 4 chronic kidney disease, without long-term current use of insulin (HCC) [E11.22, N18.4] Hyperlipidemia, unspecified hyperlipidemia type [E78.5] Essential hypertension [I10] Prescriptions as of 01/27/2018 Sig: INSULIN GLARGINE (U-100) 100 * Inject 25 Units subcutaneousl* SITAGLIPTIN 25 MG TABLET Take 1 tablet by mouth once d* ALLOPURINOL 100 MG TABLET Take 1 tablet by mouth once d* LISINOPRIL 20 MG TABLET Take 1 tablet by mouth once d* CITALOPRAM 20 MG TABLET Take 1 tablet by mouth twice * ERGOCALCIFEROL (VITAMIN D2) 5* Take 1 capsule every two week* VERAPAMIL 80 MG TABLET Take 1 tablet by mouth three * BUPROPION HCL SR 150 MG TABLE* Take 1 tablet by mouth daily * MULTIVITAMIN TABLET Take 1 tablet by mouth once d* OMEGA-3 FATTY ACIDS 1,000 MG * Take 1 capsule by mouth once * BLOOD-GLUCOSE METER Dispense 1 kit BLOOD SUGAR DIAGNOSTIC STRIPS Test blood sugar(s) 2 xdaily.* LANCETS Test blood sugar(s) 2 x daily* OMEPRAZOLE 20 MG CAPSULE,ALIREZA* Take 1 capsule by mouth twice* FUROSEMIDE 40 MG TABLET Take 1 tablet by mouth twice * Problem List As Of Date 01/27/2018 Noted Resolved ASCVD (arteriosclerotic cardiovascular disease)*INVALID FOR* Allergic rhinitis, cause unspecified [J30.9] 06/01/2016 Unspecified cardiovascular disease [I25.10] 06/01/2016 Morbid obesity (HCC) [E66.01] 12/24/2014 BATSHEVA on CPAP [G47.33, Z99.89] Trigeminal nerve disorder, 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 GASTRITIS ACUTE( With Hemorrhage) [K29.01] INVALID FOR*06/01/2016 DEPRESSIVE DISORDER NEC [F32.9] INVALID FOR* Vitamin D Deficiency [E55.9] INVALID FOR* CKD (Chronic Kidney Disease) Stage 3, GFR 30-59*INVALID FOR*09/09/2014 Acute gastritis without mention of hemorrhage [*INVALID FOR*06/01/2016 GERD (gastroesophageal reflux disease) [K21.9] INVALID FOR* Postmenopausal atrophic vaginitis [N95.2] INVALID FOR*06/01/2016 BMI 50.0-59.9, adult [Z68.43] INVALID FOR*03/25/2015 DM type 2 causing CKD stage 4 (HCC) [E11.22, N1*INVALID FOR* Diabetes mellitus type 2, controlled, without c*INVALID FOR*01/27/2016 Other symptoms involving digestive system(787.9*INVALID FOR*03/06/2015 BMI 50.0-59.9, adult (HCC) [Z68.43] INVALID FOR* Hyperlipidemia [E78.5] INVALID FOR* CKD (chronic kidney disease) stage 3, GFR 30-59*INVALID FOR* More... Hypertension [I10] INVALID FOR* Gout involving toe [M10.9] INVALID FOR* Encounter Status:Closed by LEXY RIVERA CMA on 01/27/18 STRESS REPORT Observed: 01/19/2018 Status: F Source: [place] 5:13 PM [facility] REPOSITORY [facility] Cardiovascular Services [address] [place] [address] MR#: [id number] Acct: [id number] Name: PAULA LOPEZ Aide Rep #: [id number] : 1950 67 From: Franklyn Abbott MD Primary Care: Sachin Almanza DO Status: REG CLI Ordering Dr: Sex: F C Stress Test Report Date: 01/19/2018 Procedure: Pharmacologic stress nuclear imaging study Indications: Shortness of breath/dyspnea on exertion Consent: Per the patient Procedure: The patient underwent pharmacologic (Regadenoson) evaluation with a peak heart rate of 91 beats per minute (59 predicted maximal heart rate) and a peak blood pressure of 130/78 mmHg. The baseline ECG demonstrated normal sinus rhythm. The peak pharmacologic ECG demonstrated no obvious ECG changes. There were no cardiac dysrhythmias pretest, during pharmacologic infusion, or recovery. There was no complaint of chest discomfort during pharmacologic infusion or recovery. The examination was discontinued secondary to completion of protocol. Impression: 1. Pharmacologic (Regadenoson) evaluation 2. Peak pharmacologic ECG with no obvious ECG changes. 3. There were no cardiac dysrhythmias pretest, during pharmacologic infusion, or recovery 4. Nuclear images pending Myocardial perfusion imaging study: Technique: The patient was injected with 14.8 millicuries of technetium 99m Cardiolite and subsequently rest SPECT Cardiolite nuclear imaging was obtained in the horizontal long, vertical long, and short axis views. The patient underwent pharmacologic (Regadenoson) evaluation with a peak heart rate of 91 beats per minute (59 % percent predicted maximal heart rate) and a peak blood pressure of 130/78 mmHg. The patient was injected with 44.3 millicuries of technetium 99m Cardiolite and subsequently stress SPECT Cardiolite nuclear imaging was obtained in the horizontal long, vertical long, and short axis views. A gated Cardiolite study at peak stress was obtained. Interpretation: Rest and stress SPECT Cardiolite nuclear imaging status post realignment, normalization, and attenuation correction demonstrate an area of diminished myocardial perfusion/tracer uptake in portions of the mid anterior, basal to mid lateral, and lateral apical segments which appears to be somewhat more prominent following stress as opposed to rest. There is end systolic thickening and brightening. The gated Cardiolite study demonstrates myocardial thickening and inward wall motion. The reported LVEF is 83 %. Impression: 1. And stress SPECT current nuclear imaging demonstrate myocardial perfusion changes appearing compatible with an area of previous myocardial injury/infarction involving portions of the mid anterior, basal to mid lateral, and lateral apical segments with post stress myocardial perfusion changes appearing compatible with mansoor-infarct related myocardial ischemia. Of note, contribution from soft tissue attenuation/artifact cannot necessarily be excluded. 2. The gated Cardiolite study reports an LVEF of 83 %. This note was generated with Apttusation software. It may contain incorrect words, spelling, and punctuation that were not noted in checking the note before signing. 01/19/181712 <Electronically signed by Franklyn Abbott MD> Date Franklyn Abbott MD CC: Sachin Almanza DO Date Dictated: 01/19/181706 Date Transcribed: 01/19/181706 Global Sales Executive: PM Signed MICROALB:CREAT Collected: 11/08/2017 Status: F Source: PATEL RATIO,RANDOM UR 8:37 AM [facility] REPOSITORY Order Comment: CMP,A1C,LIPID FOR DR SANTOYO TYPE CODE TESTS RESULT OUT OF RANGE REFERENCE UNITS LAB L501.1200 NO RANGE EST. mg/dL Normal UR CREAT 167.00 LAB L502.0500 NO RANGE EST. mg/L Normal 10.5 MICROALBUMIN ,UR LAB L502.0600 <30 mg/g CRE mg/g CRE Normal 6.3 MALB:CREAT Performed By: #### L502.0250 #### [facility] [address] [facility] [place], [address] CBC-COMPLETE BLOOD CNT Collected: 11/08/2017 Status: F Source: PATEL NO DIFF 8:37 AM [facility] REPOSITORY Order Comment: CMP,A1C,LIPID FOR DR SANTOYO TYPE CODE TESTS RESULT OUT OF RANGE REFERENCE UNITS LAB L100.1000 4.4-11.0 K/mm3 Normal WBC 7.3 LAB L100.1200 4.2-5.4 M/mm3 Normal RBC 4.33 LAB L100.1300 12.0-15.0 g/dl Normal HGB 13.4 LAB L100.1400 37-47 % Normal HCT 40.7 LAB L100.1500 81-99 fL Normal MCV 94.0 LAB L100.1600 27.0-32.0 pg Normal MCH 30.9 LAB L100.1700 32-36 g/gl Normal MCHC 32.9 LAB L100.1810 11.6-14.6 % Normal RDW CV 13.7 LAB L100.1820 35.1-43.9 fl High RDW SD 44.9 LAB L100.1900 150-450 K/mm3 Normal PLT 269 LAB L100.2000 6.2-12.0 fl Normal MPV 9.7 Performed By: #### L100.0500 #### [facility] [place], [address] COMPREHENSIVE METABOLIC Collected: 11/08/2017 Status: F Source: PATEL [facility] 8:37 AM [facility] REPOSITORY Order Comment: CMP,A1C,LIPID FOR DR SANTOYO TYPE CODE TESTS RESULT OUT OF RANGE REFERENCE UNITS LAB L501.0100 74-106 mg/dL High GLU 165 Result Comment: Fasting Glucose result greater than or equal to 126 mg/dL suggests DIABETES MELLITUS per A.D.A. criteria. Please note revised GLUCOSE reference range effective 2017. LAB L501.1000 7-18 mg/dL High BUN 29 LAB L501.1100 0.55-1.02 mg/dL High CREAT,SERUM 1.84 Result Comment: The validity of the calculated GFR AND GFRAA in patients over 70 years has not been determined. Clinical correlation is essential. LAB L501.1110 >60 mL/min Low EST GFR 29 Result Comment: Non- GFR Calc LAB L501.1115 >60 mL/min Low EST GFR - AA 35 Result Comment: GFR Calc LAB L501.1300 10-20 RATIO Normal BUN/CRE 15.8 LAB L501.1500 6.4-8.2 g/dL T Normal PROT 6.9 LAB L501.1800 3.2-5.0 g/dL Normal ALB 3.9 LAB L501.1950 2.2-4.2 g/dL Normal GLOB 3.0 LAB L501.2000 0.9-2.4 RATIO Normal A/G 1.3 LAB L501.2200 8.5-10.1 mg/dL CA Normal 9.3 LAB L501.4100 15-37 U/L Normal AST 27 LAB L501.4305 45-117 U/L Normal ALK P 82 LAB L501.4405 13-56 U/L Normal ALT 40 Result Comment: Please note revised ALT reference range effective 2017. LAB L501.4600 0.20-1.00 mg/dL Normal T BILI 0.50 LAB L501.5300 136-145 mmol/L Normal NA 138 LAB L501.5600 3.5-5.1 mmol/L Normal K 4.0 LAB L501.5900 98-107 mmol/L Normal CL 99 LAB L501.6100 21.0-32.0 mmol/L Normal CO2 31.0 LAB L501.6200 5-15 Normal GAP 8 Performed By: #### L500.4050, L500.4100, L501.1400, L501.2300, L501.5200 #### [facility] [address] [place], [place], [address] LIPID PROFILE Collected: 11/08/2017 Status: F Source: [place] 8:37 AM [facility] REPOSITORY Order Comment: CMP,A1C,LIPID FOR DR SANTOYO TYPE CODE TESTS RESULT OUT OF RANGE REFERENCE UNITS LAB L501.4900 200 mg/dL High CHOL 206 Result Comment: <200 mg/dL Desirable 200-240 mg/dL Borderline >240 mg/dL High Risk LAB L501.5000 mg/dL High TRIG 267 Result Comment: The drugs N-Acetylcysteine and Metamizole may falsely depress this assay. Serum Triglycerides Reference Interval Normal <150 mg/dL Borderline high 150 - 199 mg/dL High 200 - 499 mg/dL Very High > or = 500 mg/dL LAB L501.6400 mg/dL Normal HDL 44 Result Comment: The drugs N-Acetylcysteine and Metamizole may falsely depress this assay. Reference Range HDL <40 mg/dL Low HDL Cholesterol HDL >or= 60 mg/dL High HDL Cholesterol LAB L501.6500 0-130 mg/dL Normal LDL 109 LAB L501.6600 5-40 mg/dL High VLDL 53 Performed By: #### L500.4050, L500.4100, L501.1400, L501.2300, L501.5200 #### [facility] [address] [place], [place], [address] URIC ACID Collected: 11/08/2017 Status: F Source: [place] 8:37 AM [facility] REPOSITORY Order Comment: CMP,A1C,LIPID FOR DR SANTOYO TYPE CODE TESTS RESULT OUT OF RANGE REFERENCE UNITS LAB L501.1400 2.6-6.0 mg/dL High URIC 7.2 Result Comment: The drugs N-Acetylcysteine and Metamizole may falsely depress this assay. Performed By: #### L500.4050, L500.4100, L501.1400, L501.2300, L501.5200 #### [facility] [address] [place], [address] PHOSPHORUS Collected: 11/08/2017 Status: F Source: [place] 8:37 AM [facility] REPOSITORY Order Comment: CMP,A1C,LIPID FOR DR SANTOYO TYPE CODE TESTS RESULT OUT OF RANGE REFERENCE UNITS LAB L501.2300 2.5-4.9 mg/dL Normal PHOS 4.4 Performed By: #### L500.4050, L500.4100, L501.1400, L501.2300, L501.5200 #### [facility] [address] [place], [address] MAGNESIUM Collected: 11/08/2017 Status: F Source: [place] 8:37 AM [facility] REPOSITORY Order Comment: CMP,A1C,LIPID FOR DR SANTOYO TYPE CODE TESTS RESULT OUT OF RANGE REFERENCE UNITS LAB L501.5200 1.6-2.6 mg/dL Normal MG 2.3 Result Comment: Please note revised Magnesium reference range effective 2017. Performed By: #### L500.4050, L500.4100, L501.1400, L501.2300, L501.5200 #### [facility] [address] [place], [address] HEMOGLOBIN A1C Collected: 11/08/2017 Status: F Source: [place] 8:37 AM [facility] REPOSITORY Order Comment: CMP,A1C,LIPID FOR DR SANTOYO TYPE CODE TESTS RESULT OUT OF RANGE REFERENCE UNITS LAB L501.9985 4.2-6.3 % High HGB A1C 7.1 Performed By: #### L501.9985 #### [facility] [address] [place], [address] PTHIN Collected: 11/08/2017 Status: F Source: [place] 8:37 AM [facility] REPOSITORY Order Comment: CMP,A1C,LIPID FOR DR SANTOYO TYPE CODE TESTS RESULT OUT OF RANGE REFERENCE UNITS LAB L509.1000 18.4-80.1 pg/mL Normal PTHIN 58.1 Result Comment: Please Note: PTH INTACT METHOD AND REFERENCE RANGE CHANGE Effective 09/07/2017. Performed By: #### L509.1000 #### [facility] [address] [place], [address] VITAMIN D,25 HYDROXY Collected: 11/08/2017 Status: F Source: PATEL 8:37 AM [facility] REPOSITORY Order Comment: CMP,A1C,LIPID FOR DR SANTOYO TYPE CODE TESTS RESULT OUT OF RANGE REFERENCE UNITS LAB L506.1000 19.95-100.01 ng/mL Normal Vitamin D 39.2 25-OH Result Comment: Vitamin D 25(OH) Status Range Deficiency <20 ng/mL (50nmol/L) Insuffciency 20 - 30 ng/mL (50 - 75 nmol/L) Sufficiency 30 - 100 ng/mL (75 - 250 nmol/L) Toxicity >100 ng/mL (>250 nmol/L) Performed By: #### L506.1000 #### [facility] [address] [place], [address] ALLERGIES ALLERGIES DATE TYPE / CODE NAME / CODE REACTION SEVERITY SOURCE Drug clorazepate Unknown Unknown [place] 8 Allergy/799391571( dipotassium/F[address]) 551524(RXNORM) Hospital Repository Drug prednisone/F0060 COMBINATION WITH SV [place] 8 Allergy/327689097( 29091(RXNORM) NAPROXEN CAUSED Community SNOMED CT) INTERNAL Hospital BLEEDING Repository Drug indomethacin/F00 Unknown Unknown [place] 8 Allergy/211101557( 5820282(RXNORM) [facility] SNOMED CT) Hospital Repository Drug naproxen/D033461 INTERNAL SV [place] 8 Allergy/157369974( 380(RXNORM) BLEEDING [facility] SNOMED CT) Hospital Repository Drug ketoprofen/F0060 Unknown Unknown [place] 8 Allergy/813757411( 54329(RXNORM) [facility] SNOMED CT) Hospital Repository Drug clavulanic Unknown Unknown [place] 8 Allergy/065548493( acid/Y264664994( Community SNOMED CT) RXNORM) Hospital Repository Drug sulfamethoxazole Unknown Unknown [place] 8 Allergy/277742140( /Q813587924(RXNO Community SNOMED CT) ) Hospital Repository Drug trimethoprim/F00 Unknown Unknown [place] 8 Allergy/654365214( 5774756(RXNORM) [facility] SNOMED CT) Hospital Repository Drug nizatidine/F0060 Unknown Unknown [place] 8 Allergy/715251354( 68400(RXNORM) [facility] SNOMED CT) Hospital Repository Drug amoxicillin/F006 Unknown Unknown [place] 8 Allergy/629085505( 086872(RXNORM) [facility] SNOMED CT) Hospital Repository Drug ranitidine/F0060 Unknown Unknown [place] 8 Allergy/246108945( 28248(RXNORM) [facility] SNOMED CT) Hospital Repository Drug sertraline/F0060 Unknown Unknown [place] 8 Allergy/782377829( 41756(RXNORM) [facility] SNOMED CT) Hospital Repository Drug fluticasone/F006 Unknown [place] 8 Allergy/762230981( 001214(RXNORM) [facility] SNOMED CT) Hospital Repository Drug ezetimibe/Y67082 Unknown [place] 8 Allergy/010471925( 9817(RXNORM) [facility] SNOMED CT) Hospital Repository Drug rosuvastatin/F00 Unknown Unknown [place] 8 Allergy/693710122( 2890526(RXNORM) [facility] SNOMED CT) Hospital Repository Drug exenatide/F64832 Unknown [place] 8 Allergy/818041940( 0772(RXNORM) [facility] SNOMED CT) Hospital Repository Miscellaneous naldecon Unknown Unknown [place] 8 Allergy/688338403( [facility] SNOMED CT) Hospital Repository ENCOUNTERS ENCOUNTERS ADMIT/DISCHARGE ACCOUNT ADMITTING ENCOUNTER LOCATION SOURCE NUMBER CLASS 09/28/2018 [id number] Ambulatory [place] [facility] 0 [facility] Repository 08/29/2018 [id number] Ambulatory [place] 9 [facility] Hospital ing:BFHLAB Repository 08/22/2018 [id number] Ambulatory [place] 6 [facility] Hospital ing:LAB Repository 07/26/2018/ [id number] Ambulatory [place] 8 1 [facility] Hospital ing:CR Repository 07/19/2018/ [id number] [place] 8 4 [facility]CR Repository 07/04/2018 [id number] Ambulatory [place] 0 [facility] Hospital ing:CVS Repository 07/04/2018 [id number] Ambulatory BMSBuilding:W [place] 1 [facility] Repository 06/22/2018/ [id number] Ambulatory BMSBuilding:B [place] 8 0 [facility] Repository 06/22/2018/ [id number] [place] 8 2 [facility]DC Repository 06/16/2018/ [id number] Ambulatory [place] 8 1 [facility] ing:CR Repository 05/31/2018 [id number] [place] 0 [facility] Hospital ing:LAB Repository 05/26/2018/ [id number] Ambulatory BMSBuilding:B [place] 8 1 [facility] Repository 05/25/2018/ [id number] Ambulatory [place] [facility] 8 [facility] Repository 05/19/2018/ [id number] [place] 8 0 [facility] ing[facility]CR Repository 05/18/2018/ [id number] Ambulatory [place] 8 1 [facility] ing[facility]DC Repository 05/11/2018 [id number] Ambulatory [place] 9 [facility] Hospital ing:LAB.FUTUR Repository E 04/14/2018/ [id number] Ambulatory [place] [facility] 8 [facility]CR Repository 04/11/2018/ [id number] Ambulatory BMSBuilding:B [place] 8 5 [facility] Hospital Repository 04/07/2018 [id number] Ambulatory [place] 1 [facility] ing:CR Repository 04/03/2018 [id number] [place] 4 [facility] ing[facility]LAB Repository 04/03/2018 [id number] Ambulatory BMSBuilding:B [place] 8 [facility] Hospital Repository 03/29/2018 [id number] Ambulatory BMSBuilding:B [place] 8 [facility] Repository 03/28/2018/ [id number] [place] 8 7 [facility] ing:CLSP Repository 03/28/2018 [id number] Ambulatory BMSBuilding:W [place] 6 [facility] Hospital Repository 03/28/2018 [id number] Ambulatory BMSBuilding:W [place] 7 [facility] Hospital Repository 03/24/2018 [id number] [place] 3 [facility] ing:[facility] Repository 03/24/2018 [id number] Ambulatory BMSBuilding:W [place] 2 [facility] Hospital Repository 03/23/2018/ [id number] Ambulatory [place] [facility] 8 2 [facility]PT Repository 03/16/2018 [id number] Ambulatory [place] 7 [facility] ing:RAD Repository 03/16/2018/ [id number] Ambulatory BMSBuilding:B [place] 8 5 [facility] Hospital Repository 03/15/2018 [id number] Ambulatory BMSBuilding:B [place] 7 [facility] Hospital Repository 03/14/2018 [id number] Ambulatory [place] 7 [facility] Repository 03/01/2018/ [id number] Ambulatory BMSBuilding:B [place] 8 7 [facility] Hospital Repository 01/19/2018 [id number] [place] [facility] Repository 01/19/2018 [id number] Ambulatory BMSBuilding:W [place] 5 [facility] Repository 11/08/2017 [id number] Ambulatory [place] 3 [facility] ing:LAB Repository PAYERS PAYERS ENCOUNTER GUARANTOR PAYER SUBSCRIBER SOURCE 09/28/2018 PAULA Noble Primary PAULA Sweeney [id number] Insurance:MEDICARE SELZERDOB: Community CHIDI RDAPPLE PART A [facility] [id number] Number: Repository [id number]: 330 [id number] [phone] (HP) Date:2018-05-17 09/28/2018 Secondary PAULA Sweeney Insurance:AARPPolicy SELZERDOB: Community Number: [id number] Hospital [id number] Repository Date:1814-30-43[address], [place] [address]GH: 09/28/2018 Tertiary NOT GIVENUNK [place] Insurance:SELF PAY [facility] Number: Effective Repository Date:2018-07-20 08/29/2018 PAULA Noble Primary PAULA Sweeney [id number] Insurance:MEDICARE SELZERDOB: Community CHIDI RDAPPLE PART A [facility] [id number] [facility] [place] Number: Repository [id number]: 330 [id number] [phone] () Date:2018-08-29 08/29/2018 Secondary PAULA Sweeney Insurance:AARPPolicy SELZERDOB: Community Number: [id number] Hospital [id number] Repository Date:1498-37-91[address], [place] [address]MY: 08/29/2018 Tertiary NOT GIVENUNK [place] Insurance:SELF PAY [facility] Number: Effective Repository Date:2018-08-29 08/22/2018 PAULA Noble Primary PAULA Sweeney [id number] Insurance:MEDICARE SELZERDOB: Community CHIDI RDAPPLE PART A [id number] [place] Number[facility] Repository [id number]: 330 [id number] [phone] () Date:2018-08-22 08/22/2018 Secondary PAULA Noble [place] Insurance:AARPPolicy SELZERDOB: Community Number: [id number] Hospital [id number] Repository Date:2619-23-89[address]X, [place] [address]NK: 08/22/2018 Tertiary NOT GIVENUNK [place] Insurance:SELF PAY [facility] Number: Effective Repository Date:2018-08-22 07/26/2018 PAULA Noble Primary PAULA Noble [place] [id number] Insurance:MEDICARE SELZERDOB: Community CHIDI RDAPPLE PART A [facility] [id number] Number: Repository [id number]: 330 [id number] [phone] () Date:2018-04-07 07/26/2018 Secondary PAULA Noble [place] Insurance:AARPPolicy SELZERDOB: Community Number: [id number] Hospital [id number] Repository Date:9160-35-12GD [address], [place] [address]KQ: 07/26/2018 Tertiary NOT GIVENUNK [place] Insurance:SELF PAY [facility] Number: Effective Repository Date:2018-07-20 07/19/2018 PAULA Noble Primary PAULA Noble [place] [id number] Insurance:MEDICARE SELZERDOB: Community CHIDI RDAPPLE PART A [facility] [id number] Number: Repository [id number]: 330 [id number] [phone] () Date:2018-04-07 07/19/2018 Secondary PAULA Noble [place] Insurance:AARPPolicy SELZERDOB: Community Number: [id number] Hospital [id number] Repository Date:7518-53-94[address], [place] [address]MZ: 07/19/2018 Tertiary NOT GIVENUNK [place] Insurance:SELF PAY [facility] Number: Effective Repository Date:2018-06-19 07/04/2018 PAULA Noble Primary PAULA Noble [place] [id number] Insurance:MEDICARE SELZERDOB: Community CHIDI RDAPPLE PART A [facility] [id number] Number: Repository [address]Wdf: 330 [id number] [phone] () Date:2018-06-26 07/04/2018 Secondary PAULA Noble [place] Insurance:AARPPolicy SELZERDOB: Community Number: [id number] Hospital [id number] Repository Date:8318-50-99EW [address]XEWJTWB, [place] [address]WL: 07/04/2018 Tertiary NOT GIVENUNK [place] Insurance:SELF PAY [facility] Number[facility] Effective Repository Date:2018-06-26 07/04/2018 PAULA Noble Primary PAULA Noble [place] [id number] Insurance:MEDICARE SELZERDOB: Community CHIDI RDAPPLE PART A [facility] [id number] Number: Repository [id number]: 330 [id number] [phone] () Date:2018-06-26 07/04/2018 Secondary PAULA Noble [place] Insurance:AARPPolicy SELZERDOB: Community Number: [id number] Hospital [id number] Repository Date:4298-32-88[address]NBF[place], [place] [address]JH: 07/04/2018 Tertiary NOT GIVENUNK [place] Insurance:SELF PAY [facility] Number[facility] Effective Repository Date:2018-07-04 06/22/2018 PAULA Noble Primary PAULA Noble [place] [id number] Insurance:MEDICARE SELZERDOB: Community CHIDI RDAPPLE PART A [facility] [id number] Number: Repository [id number]: 330 [id number] [phone] () Date:2018-04-11 06/22/2018 Secondary PAULA Noble [place] Insurance:AARPPolicy SELZERDOB: Community Number: [id number] Hospital [id number] Repository Date:8177-67-26IO [facility] 945298CHFQXWL, [place] [address]OR: 06/22/2018 Tertiary NOT GIVENUNK [place] Insurance:SELF PAY [facility] Effective Repository Date:2018-04-11 06/22/2018 PAULA Noble Primary PAULA Noble Patel [id number] Insurance:MEDICARE SELZERDOB: Community CHIDI RDAPPLE PART A [facility] [id number] Number: Repository [id number]: 330 [id number] [phone] () Date:2018-05-17 06/22/2018 Secondary PAULA Noble [place] Insurance:AARPPolicy SELZERDOB: Community Number: [id number] Hospital [id number] Repository Date:3209-50-15TK [address]EEJRDQC, [place] [address]TJ: 06/22/2018 Tertiary NOT GIVENUNK [place] Insurance:SELF PAY [facility] Number: Effective Repository Date:2018-06-19 06/16/2018 PAULA Noble Primary PAULA Noble [place] [id number] Insurance:MEDICARE SELZERDOB: Community CHIDI RDAPPLE PART A [facility] [id number] Number: Repository [id number]: 330 [id number] [phone] () Date:2018-04-07 06/16/2018 Secondary PAULA Noble [place] Insurance:AARPPolicy SELZERDOB: Community Number: [id number] Hospital [id number] Repository Date:4676-28-64TW [address]SJAEFCB, [place] [address]FE: 06/16/2018 Tertiary NOT GIVENUNK [place] Insurance:SELF PAY [facility] Number: Effective Repository Date:2018-05-20 05/31/2018 PAULA Noble Primary PAULA Noble [place] [id number] Insurance:MEDICARE SELZERDOB: Community CHIDI RDAPPLE PART A [facility] [id number] Number: Repository [address]Hxf: 330 [id number] [phone] () Date:2018-05-31 05/31/2018 Secondary PAULA Noble [place] Insurance:AARPPolicy SELZERDOB: Community Number: [id number] Hospital [id number] Repository Date:7776-63-53FO [address]MYKUHEB, [place] [address]JG: 05/31/2018 Tertiary NOT GIVENUNK [place] Insurance:SELF PAY Community [facility] Number: Effective Repository Date:2018-05-31 05/26/2018 PAULA Noble Primary PAULA Noble Patel [id number] Insurance:MEDICARE SELZERDOB: Community CHIDI RDAPPLE PART A [facility] [id number] Number: Repository [address]Yxx: 330 [id number] [phone] () Date:2018-05-26 05/26/2018 Secondary PAULA Noble [place] Insurance:AARPPolicy SELZERDOB: Community Number: [id number] Hospital [id number] Repository Date:8544-20-75FE [address]GMLDJSS, [place] [address]YW: 05/26/2018 Tertiary NOT GIVENUNK [place] Insurance:SELF PAY [facility] Number: Effective Repository Date:2018-05-26 05/25/2018 PAULA Noble Primary PAULA Noble [place] [id number] Insurance:MEDICARE SELZERDOB: Community CHIDI RDAPPLE PART A [facility] [id number] Number: Repository [address]Aru: 330 [id number] [phone] () Date:2018-05-17 05/25/2018 Secondary PAULA Noble [place] Insurance:AARPPolicy SELZERDOB: Community Number: [id number] Hospital [id number] Repository Date:6515-58-76AG [address]OZSBJGJ, [place] [address]IZ: 05/25/2018 Tertiary NOT GIVENUNK [place] Insurance:SELF PAY Community [facility] Number: Effective Repository Date:2018-05-20 05/19/2018 PAULA Noble Primary PAULA Noble Patel [id number] Insurance:MEDICARE SELZERDOB: Community CHIDI RDAPPLE PART A [facility] [id number] Number: Repository [address]Jnj: 330 [id number] [phone] (HP) Date:2018-04-07 05/19/2018 Secondary PAULA Noble [place] Insurance:AARPPolicy SELZERDOB: Community Number: [id number] Hospital [id number] Repository Date:1028-97-98UC [facility] 799352AGCRVIF, [place] [address]TZ: 05/19/2018 Tertiary NOT GIVENUNK [place] Insurance:SELF PAY [facility] Number: Effective Repository Date:2018-04-19 05/18/2018 PAULA Noble Primary PAULA Noble [place] [id number] Insurance:MEDICARE SELZERDOB: Community CHIDI RDAPPLE PART A [facility] [id number] [place] Number[facility] Repository [address]Szs: 330 [id number] [phone] (HP) Date:2018-05-17 05/18/2018 Secondary PAULA Noble [place] Insurance:AARPPolicy SELZERDOB: Community Number: [id number] Hospital [id number] Repository Date:6221-81-14KK [address]EVQGRZS, [place] [address]WF: 05/18/2018 Tertiary NOT GIVENUNK [place] Insurance:SELF PAY [facility] Number: Effective Repository Date:2018-05-17 05/11/2018 PAULA Noble Primary PAULA Noble [place] [id number] Insurance:MEDICARE SELZERDOB: Community CHIDI RDAPPLE PART A [facility] [id number] Number: Repository [address]Cdz: 330 [id number] [phone] (HP) Date:2018-05-08 05/11/2018 Secondary PAULA Noble [place] Insurance:AARPPolicy SELZERDOB: Community Number: [id number] Hospital [id number] Repository Date:5403-81-06EU [address]AKQULME, [place] [address]RV: 05/11/2018 Tertiary NOT GIVENUNK [place] Insurance:SELF PAY [facility] Number: Effective Repository Date:2018-05-08 04/14/2018 PAULA Noble Primary PAULA Noble [place] [id number] Insurance:MEDICARE SELZERDOB: Community CHIDI RDAPPLE PART A [facility] [id number] Number: Repository [address]Bpg: 330 [id number] [phone] () Date:2018-04-07 04/14/2018 Secondary PAULA Noble [place] Insurance:AARPPolicy SELZERDOB: Community Number: [id number] Hospital [id number] Repository Date:0801-04-26FH [address]BBVRSKF, [place] [address]QN: 04/14/2018 Tertiary NOT GIVENUNK [place] Insurance:SELF PAY [facility] Number: Effective Repository Date:2018-04-07 04/11/2018 PAULA Noble Primary PAULA Noble [place] [id number] Insurance:MEDICARE SELZERDOB: Community CHIDI RDAPPLE PART A [facility] [id number] Number: Repository [address]Lai: 330 [id number] [phone] () Date:2018-03-28 04/11/2018 Secondary PAULA Noble [place] Insurance:AARPPolicy SELZERDOB: Community Number: [id number] Hospital [id number] Repository Date:3330-53-56FS [address]GNHLPVQ, [place] [address]WQ: 04/11/2018 Tertiary NOT GIVENUNK [place] Insurance:SELF PAY [facility] Number: Effective Repository Date:2018-04-11 04/07/2018 PAULA Noble Primary PAULA Noble [place] [id number] Insurance:MEDICARE SELZERDOB: Community CHIDI RDAPPLE PART A [facility] [id number] [place] Number: Repository [address]Xsy: 330 [id number] [phone] (HP) Date:2018-03-31 04/07/2018 Secondary PAULA Noble [place] Insurance:AARPPolicy SELZERDOB: Community Number: [id number] Hospital [id number] Repository Date:2741-01-28MG [address]IS[place], [place] [address]MS: 04/07/2018 Tertiary NOT GIVENUNK [place] Insurance:SELF PAY Community [facility] Number: Effective Repository Date:2018-03-31 04/03/2018 PAULA Noble Primary PAULA Noble [place] [id number] Insurance:MEDICARE SELZERDOB: Community CHIDI RDAPPLE PART A [facility] [id number], [place] Number: Repository [address]Tcu: 330 [id number] [phone] () Date:2018-04-03 04/03/2018 Secondary PAULA Noble [place] Insurance:AARPPolicy SELZERDOB: Community Number: [id number] Hospital [id number] Repository Date:2621-62-55HM [address]IPMXVDP, [place] [address]TK: 04/03/2018 Tertiary NOT GIVENUNK [place] Insurance:SELF PAY Community [facility] Number: Effective Repository Date:2018-04-03 04/03/2018 PAULA Noble Primary PAULA Noble [place] [id number] Insurance:MEDICARE SELZERDOB: Community CHIDI RDAPPLE PART A [facility] [id number] Number: Repository [address]Nlc: 330 [id number] [phone] () Date:2018-04-03 04/03/2018 Secondary PAULA Noble [place] Insurance:AARPPolicy SELZERDOB: Community Number: [id number] Hospital [id number] Repository Date:6816-73-42TO [address]GIQGPYC, [place] [address]EO: 04/03/2018 Tertiary NOT GIVENUNK [place] Insurance:SELF PAY Community [facility] Number: Effective Repository Date:2018-04-03 03/29/2018 PAULA Noble Primary PAULA Noble Patel [id number] Insurance:MEDICARE SELZERDOB: Community CHIDI RDAPPLE PART A [facility] [id number] [facility] Number: Repository [address]Gzs: 330 [id number] [phone] (HP) Date:2018-03-16 03/29/2018 Secondary PAULA Noble [place] Insurance:AARPPolicy SELZERDOB: Community Number: [id number] Hospital [id number] Repository Date:3965-16-32CR [address]EJJWSVT, [place] [address]UF: 03/29/2018 Tertiary NOT GIVENUNK [place] Insurance:SELF PAY [facility] Number: Effective Repository Date:2018-03-29 03/28/2018 PAULA Noble Primary PAULA Noble [place] [id number] Insurance:MEDICARE SELZERDOB: Community CHIDI RDAPPLE PART A [facility] [id number] [facility] Number: Repository [address]Zus: 330 [id number] [phone] () Date:2018-03-16 03/28/2018 Secondary PAULA Noble [place] Insurance:AARPPolicy SELZERDOB: Community Number: [id number] Hospital [id number] Repository Date:7172-65-94IF [address]KYIVQSY, [place] [address]ZA: 03/28/2018 Tertiary NOT GIVENUNK [place] Insurance:SELF PAY [facility] Number: Effective Repository Date:2018-03-16 03/28/2018 PAULA Noble Primary PAULA Noble Patel [id number] Insurance:MEDICARE SELZERDOB: Community CHIDI RDAPPLE PART A [facility] [id number] [place] Number: Repository [address]Djz: 330 [id number] [phone] (HP) Date:2018-03-16 03/28/2018 Secondary PAULA Noble [place] Insurance:AARPPolicy SELZERDOB: Community Number: [id number] Hospital [id number] Repository Date:6813-39-68TS [address]CVGCZYQ, [place] [address]AU: 03/28/2018 Tertiary NOT GIVENUNK [place] Insurance:SELF PAY Community [facility] Number: Effective Repository Date:2018-03-28 03/28/2018 PAULA Noble Primary PAULA Sween[place] [id number] Insurance:MEDICARE SELZERDOB: Community CHIDI RDAPPLE PART A [facility] [id number], [place] Number: Repository [address]Tgb: 330 [id number] [phone] () Date:2018-03-16 03/28/2018 Secondary PAULA Nobel [place] Insurance:AARPPolicy SELZERDOB: Community Number: [id number] Hospital [id number] Repository Date:9556-96-51SV [address]YZICRLM, [place] [address]RN: 03/28/2018 Tertiary NOT GIVENUNK [place] Insurance:SELF PAY [facility] Number: Effective Repository Date:2018-03-28 03/24/2018 PAULA Noble Primary PAULA Sweeney [id number] Insurance:MEDICARE SELZERDOB: Community CHIDI RDAPPLE PART A [facility] [id number] Number: Repository [address]Vdp: 330 [id number] [phone] () Date:2018-03-23 03/24/2018 Secondary PAULA Noble [place] Insurance:AARPPolicy SELZERDOB: Community Number: [id number] Hospital [id number] Repository Date:6246-81-93KJ [address]TOPQXZR, [place] [address]KV: 03/24/2018 Tertiary NOT GIVENUNK [place] Insurance:SELF PAY [facility] Number: Effective Repository Date:2018-03-23 03/24/2018 PAULA Noble Primary PAULA Sweeney [id number] Insurance:MEDICARE SELZERDOB: Community CHIDI RDAPPLE PART A [facility] [id number], [place] Number: Repository [address]Rtn: 330 [id number] [phone] () Date:2018-03-23 03/24/2018 Secondary PAULA Noble [place] Insurance:AARPPolicy SELZERDOB: Community Number: [id number] Hospital [id number] Repository Date:8402-41-20IE [address]DMYAEKY, [place] [address]SE: 03/24/2018 Tertiary NOT GIVENUNK [place] Insurance:SELF PAY [facility] Number: Effective Repository Date:2018-03-24 03/23/2018 PAULA Noble Primary PAULA Sweeney [id number] Insurance:MEDICARE SELZERDOB: Community CHIDI RDAPPLE PART A [facility] [id number] [place] Number: Repository [address]Lxb: 330 [id number] [phone] () Date:2014-08-19 03/23/2018 Secondary PAULA Noble [place] Insurance:AARPPolicy SELZERDOB: Community Number: [id number] Hospital [id number] Repository Date:1736-36-63GL [address]TZFRODS, [place] [address]AH: 03/23/2018 Tertiary NOT GIVENUNK [place] Insurance:SELF PAY [facility] Number: Effective Repository Date:2018-02-10 03/16/2018 PAULA Noble Primary PAULA Sweeney [id number] Insurance:MEDICARE SELZERDOB: Community CHIDI RDAPPLE PART A [facility] [id number] [facility], [place] Number: Repository [address]Amt: 330 [id number] [phone] () Date:2018-03-16 03/16/2018 Secondary PAULA Noble [place] Insurance:AARPPolicy SELZERDOB: Community Number: [id number] Hospital [id number] Repository Date:5594-71-06WO [address]KBYHCOD, [place] [address]WT: 03/16/2018 Tertiary NOT GIVENUNK [place] Insurance:SELF PAY [facility] Number: Effective Repository Date:2018-03-16 03/16/2018 Paula Noble Primary Paula Sweeney [id number] Insurance:MEDICARE SelzerDOB: Community Chidi RdApple PART A olic [id number] [facility], [place] Number: Repository [address]Mpe: 330 [id number] [phone] () Date:2018-01-30 03/16/2018 Secondary Paula Noble [place] Insurance:AARPPolicy SelzerDOB: Community Number: [id number] Hospital [id number] Repository Date:8613-84-79KA [address]OTMIVZX, [place] [address]YD: 03/16/2018 Tertiary NOT GIVENUNK [place] Insurance:SELF PAY [facility] Number: Effective Repository Date:2018-03-16 03/15/2018 Paula Noble Primary Paula Haleyoster [id number] Insurance:MEDICARE SelzerDOB: Community Chidi RdApple PART A [facility] [id number] General Hospital, [place] Number: Repository [address]Qgv: 330 [id number] [phone] () Date:2018-03-15 03/15/2018 Secondary Paula Noble [place] Insurance:AARPPolicy SelzerDOB: Community Number: [id number] Hospital [id number] Repository Date:4428-48-05AT [address]MWCTYUC, [place] [address]UB: 03/15/2018 Tertiary NOT GIVENUNK [place] Insurance:SELF PAY [facility] Number: Effective Repository Date:2018-03-15 03/14/2018 Paula Noble Primary Paula Haleyoster [id number] Insurance:MEDICARE SelzerDOB: Community Chidi RdApple PART A [facility] [id number] General [facility] Number: Repository [address]Sjx: 330 [id number] [phone] (HP) Date:2018-03-14 03/14/2018 Secondary Paula Noble [place] Insurance:AARPPolicy SelzerDOB: Community Number: [id number] Hospital [id number] Repository Date:9211-17-18DF [address]MVMJARN, [place] [address]BM: 03/14/2018 Tertiary NOT GIVENUNK [place] Insurance:SELF PAY [facility] Number: Effective Repository Date:2018-03-14 03/01/2018 Paula Noble Primary Paula Noble Patel [id number] Insurance:MEDICARE SelzerDOB: Community Chidi RdApple PART A [facility] [id number] [facility] Number: Repository [address]Wgr: [id number] [phone] Date:2018-03-01 () 03/01/2018 Secondary Paula Noble [place] Insurance:AARPPolicy SelzerDOB: Community Number: [id number] Hospital [id number] Repository Date:7751-82-46YB [address]OVINBGK, [place] [address]MM: 03/01/2018 Tertiary NOT GIVENUNK [place] Insurance:SELF PAY Community [facility] Number: Effective Repository Date:2018-03-01 01/19/2018 Paula Noble Primary Paula Haleyoster [id number] Insurance:MEDICARE SelzerDOB: Community Chidi RdApple PART A [facility] [id number] Affairs [facility] [place] Number: Repository [id number]: [id number] [phone] Date:2018-01-11 () 01/19/2018 Secondary Paula Noble [place] Insurance:AARPPolicy SelzerDOB: Community Number: [id number] Hospital [id number] Repository Date:8125-37-94ZZ [address]ZWHDOKR, [place] [address]JU: 01/19/2018 Tertiary NOT GIVENUNK [place] Insurance:SELF PAY [facility] Number: Effective Repository Date:2018-01-11 01/19/2018 Paula Noble Primary Paula Noble Patel [id number] Insurance:MEDICARE SelzerDOB: Community Chidi RdApple PART A [facility] [id number] Affairs Medical Center [place] Number: Repository [id number]: [id number] [phone] Date:2018-01-11 () 01/19/2018 Secondary Paula Noble [place] Insurance:AARPPolicy SelzerDOB: Community Number: [id number] Hospital [id number] Repository Date:7500-71-11QG [facility] 620160XZITYJW, [place] [address]FM: 01/19/2018 Tertiary NOT GIVENUNK [place] Insurance:SELF PAY [facility] Number: Effective Repository Date:2018-01-19 11/08/2017 Paula M Primary Paula M [place] [id number] Insurance:MEDICARE SelzerDOB: Community Chidi RdApple PART A [facility] [id number] Affairs Medical Center [place] Number: Repository [address]Nfx: [id number] [phone] Date:2017-11-08 () 11/08/2017 Secondary Paula Noble [place] Insurance:AARPPolicy SelzerDOB: Community Number: [id number] Hospital [id number] Repository Date:2008-44-58AD [facility] 642896PFOOQQG, [place] [address]GG: 11/08/2017 Tertiary NOT GIVENUNK [place] Insurance:SELF PAY [facility] Number: Effective Repository Date:2017-11-08
== END ==
PROVIDERS: Family Provider Family Medicine; PCP Family Medicine; Referring Provider Family Medicine; Visit Provider Family Medicine
DX: R19.5 Other fecal abnormalities (principal); R53.83 Other fatigue; J32.9 Chronic sinusitis, unspecified; J02.9 Acute pharyngitis, unspecified
CPT/HCPCS: 36415; 80048; 82607; 85025; 87070; 87077; 87186; 87205

== ENCOUNTER → 2018-10-24 15:59 | Outpatient (CLI) | payer MEDICARE, OTHER, SELFPAY ==
[2018-03-28 12:55] VITALS: BMI 56.3
== END ==
PROVIDERS: Family Provider Family Medicine; PCP Family Medicine; Referring Provider Otolaryngology Otolaryngology/Facial Plastic Surgery; Visit Provider Otolaryngology Otolaryngology/Facial Plastic Surgery
DX: J32.9 Chronic sinusitis, unspecified (principal)
CPT/HCPCS: 87070; 87077; 87186; 87205

== ENCOUNTER → 2018-12-27 08:58 | Outpatient (CLI) | payer MEDICARE, OTHER, SELFPAY ==
[2018-03-28 12:55] VITALS: BMI 56.3
[2018-12-27 10:45] LABS: Hemoglobin 13.2 g/dl (12.0-15.0); Mean Corp Hgb Conc 32.2 g/gl (32-36); Mean Corpuscular Hgb 30.6 pg (27.0-32.0); Mean Corpuscular Volume 94.9 fL (81-99); Mean Platelet Vol. 9.3 fl (6.2-12.0); Platelet Count 233 K/mm3 (150-450); RBC Distribution Width CV 14.7 % (11.6-14.6); RBC Distribution Width SD 50.9 fl (35.1-43.9); Red Blood Count 4.32 M/mm3 (4.2-5.4); White Blood Count 6.5 K/mm3 (4.4-11.0)
[2018-12-27 10:48] LABS: Scan Indicated on CBC? Y/N NO
[2018-12-27 11:10] LABS: Microalbumin,Random Urine < 5.0 mg/L (NO RANGE EST.)
[2018-12-27 11:17] LABS: ALB/GLOB Ratio 1.3 RATIO (0.9-2.4); AST(SGOT) 18 U/L (15-37); Alanine Aminotransfer ALT/SGPT 26 U/L (13-56); Albumin, Serum 3.9 g/dL (3.2-5.0); Alkaline Phosphatase 92 U/L (45-117); Anion Gap 8 (5-15); BUN 40 mg/dL (7-18); BUN/Creat Ratio 21.4 RATIO (10-20); Calcium,Total 8.6 mg/dL (8.5-10.1); Chloride 104 mmol/L (98-107); Cholesterol 217 mg/dL (200); Creatinine, Serum 1.87 mg/dL (0.55-1.02); EST Glomerular Filtration Rate 28 mL/min (>60); Est Glom Filt Rate - Afr Amer 34 mL/min (>60); Globulin 3.1 g/dL (2.2-4.2); Glucose 103 mg/dL (74-106); Hemoglobin A1c 5.9 % (4.2-6.3); High Density Lipoprotein 50 mg/dL; Magnesium 2.5 mg/dL (1.6-2.6); Phosphorus 3.4 mg/dL (2.5-4.9); Potassium 4.7 mmol/L (3.5-5.1); Sodium Level 137 mmol/L (136-145); Thyroid Stim Hormone (TSH) 0.88 uIU/mL (0.358-3.74); Triglycerides 146 mg/dL; Uric Acid 6.2 mg/dL (2.6-6.0); Very Low Density Lipoprotein 29 mg/dL (5-40)
[2018-12-27 11:25] LABS: Vitamin D,25 Hydroxy 51.2 ng/mL (29.95-100.01)
[2018-12-27 11:29] LABS: PTHIN 83.4 pg/mL (18.4-80.1)
== END ==
PROVIDERS: Family Provider Family Medicine; PCP Family Medicine; Referring Provider Internal Medicine Endocrinology, Diabetes & Metabolism; Visit Provider Internal Medicine Endocrinology, Diabetes & Metabolism
DX: E11.22 Type 2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with diabetic chronic kidney disease (principal); N18.4 Chronic kidney disease, stage 4 (severe); E55.9 Vitamin D deficiency, unspecified; M10.9 Gout, unspecified; Z13.0 Encounter for screening for diseases of the blood and blood-forming organs and certain disorders involving the immune mechanism
CPT/HCPCS: 36415; 80053; 80061; 82043; 82306; 82570; 83036; 83735; 83970; 84100; 84443; 84550; 85027

== ENCOUNTER 2019-02-09 07:27 | Day surgery (SDC) | payer MEDICARE, OTHER, SELFPAY ==
[2018-03-28 12:55] VITALS: BMI 56.3
[2019-01-22 15:07] VITALS: BMI 56.0
--- NOTE | 2019-01-22 16:48 | HP_ITS ---
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 Is patient in pain?: No (at times, not currently) Allergies naproxen [From Naprosyn] Adverse Reaction (Severe, Verified 01/22/19 14:53) INTERNAL BLEEDING prednisone Adverse Reaction (Severe, Verified 01/22/19 14:53) COMBINATION WITH NAPROXEN CAUSED INTERNAL BLEEDING exenatide [From Byetta] Adverse Reaction (Intermediate, Verified 01/22/19 14:53) Unknown ezetimibe [From Zetia] Adverse Reaction (Intermediate, Verified 01/22/19 14:53) Unknown fluticasone [From Flonase] Adverse Reaction (Intermediate, Verified 01/22/19 14:53) Unknown amoxicillin [From Augmentin] Adverse Reaction (Unknown, Verified 01/22/19 14:53) Unknown clavulanic acid [From Augmentin] Adverse Reaction (Unknown, Verified 01/22/19 14:53) Unknown clorazepate dipotassium [From Tranxene T-Tab] Adverse Reaction (Unknown, Verified 01/22/19 14:53) Unknown indomethacin [From Indocin] Adverse Reaction (Unknown, Verified 01/22/19 14:53) Unknown ketoprofen [From Oruvail] Adverse Reaction (Unknown, Verified 01/22/19 14:53) Unknown nizatidine [From Axid] Adverse Reaction (Unknown, Verified 01/22/19 14:53) Unknown ranitidine [From Zantac] Adverse Reaction (Unknown, Verified 01/22/19 14:53) Unknown rosuvastatin [From Crestor] Adverse Reaction (Unknown, Verified 01/22/19 14:53) Unknown sertraline [From Zoloft] Adverse Reaction (Unknown, Verified 01/22/19 14:53) Unknown sulfamethoxazole [From ] Adverse Reaction (Unknown, Verified 01/22/19 14:53) Unknown trimethoprim [From ] Adverse Reaction (Unknown, Verified 01/22/19 14:53) Unknown naldecon Adverse Reaction (Unknown, Uncoded 01/22/19 14:53) Unknown Medications Furosemide [Lasix] 40 mg PO DAILY 12/22/14 [History Confirmed 01/22/19] Lisinopril [Zestril] 20 mg PO DAILY 12/22/14 [History Confirmed 01/22/19] buPROPion SR [Wellbutrin SR (150mg tablets)] 150 mg PO QHS 12/22/14 [History Confirmed 01/22/19] allopurinol 100 mg tablet 200 mg PO DAILYCM tab 03/15/18 [History Confirmed 01/22/19] citalopram 20 mg tablet 20 mg PO QDAY tab 03/15/18 [History Confirmed 01/22/19] dulaglutide 1.5 mg/0.5 mL subcutaneous pen injector 0.5 mg SC QWEEK ml 03/15/18 [History Confirmed 01/22/19] repaglinide 1 mg tablet 1 mg PO QDAY tab 03/15/18 [History Confirmed 01/22/19] Cholecalciferol (Vitamin D3) [Vitamin D3] 5,000 unit PO DAILY 04/07/18 [History Confirmed 01/22/19] metoprolol tartrate 25 mg tablet 25 mg PO BID #180 tab 05/12/18 [Rx Confirmed 01/22/19] clopidogrel 75 mg tablet 75 mg PO DAILY #90 tab 06/20/18 [Rx Confirmed 01/22/19] pantoprazole 20 mg tablet,delayed release 20 mg PO DAILY 01/22/19 [History Confirmed 01/22/19] peg 3350-electrolytes 236 gram-22.74 gram-6.74 gram-5.86 gram solution 240 ml PO Q10M #4000 ml 01/22/19 [Rx Confirmed 01/22/19] [facility] History Black tarry stools (Acute) Hypertension (Chronic) CKD (chronic kidney disease) stage 3, GFR 30-59 ml/min (Chronic) Gout (Chronic) Osteoarthritis (Chronic) GERD (gastroesophageal reflux disease) (Chronic) Sleep apnea (Chronic) Atherosclerotic heart disease of [place] coronary artery without angina pectoris (Chronic) Type 2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(Chronic) Surgical History Hx of heart artery stent (Acute) History of carpal tunnel surgery (Acute) Hx of arthroscopy of right knee (Resolved) History of arthroscopy of right shoulder (Resolved) History of cholecystectomy (Resolved) Hx of appendectomy (Resolved) Family History Mother Hypertension Myocardial infarction CAD (coronary artery disease) Diabetes Father Angina pectoris Alzheimer disease Social History Smoking Status: Never smoker second hand exposure: No alcohol intake: never substance use type: does not use caffeine: Yes Type: coffee Number of servings: 3 frequency: does not exercise HPI HPI HPI: JACEK LOPEZ is a 68 F who presents to the office today for HPI HPI Surgical H&P: Yes HPI: JACEK LOPEZ, is a 68 F who presents to the office today for surgical consultation regarding black tarry stools. 68-year-old female. She had an acute myocardial infarction and coronary stents placed March 2018. At some point thereafter she had development of some black tarry stools. The patient was felt not to be able to be taken off of her anticoagulation and so endoscopic intervention has been postponed until she was in a more stable condition. She occasionally has some epigastric pain. She is being managed with omeprazole 25 moderate grams daily. She is on clopidogrel 75 mg daily for her coronary stents. She does have stage III chronic renal insufficiency. March 2018 she had proximal LAD was 75% stenosis that was treated with a drug- eluting stent to the proximal LAD. We do have records 11/07/[address] Ilya Reid performed a colonoscopy based upon epigastric pain and change of bowel habits. The bowel prep was felt to have been poor. A 5 mm polyp was found in the ascending colon and removed with cold forceps. A 12 mm polyp was found in the transverse colon and was sessile and was removed with a hot snare. Some sigmoid diverticulosis was identified. At least on today's visit the patient seemed unaware that she had a history of polyps she denies family history of colon cancer. She does not take iron supplementation nor does she take Pepto-Bismol. As of December 27, 2018 white blood cell count was 6.5 with a hemoglobin 13.2 and hematocrit 41 and platelet count of 233,000. BUN is 40 and creatinine 1.87. Liver function tests normal. The patient's primary medical health problem includes a body weight of 311 pounds making her BMI 56% ROS General General: No weight change, appetite, fatigue, colon cancer, breast cancer or weakness HEENT HEENT: No difficulty swallowing, eye injury, eye surgery, swollen glands or hoarseness Endo Endocrine: Yes diabetes mellitus; no thyroid disease, thyroid cancer, Hair loss, heat intolerance or cold intolerance Skin Skin: No rash or changing moles Musc Musculoskeletal: Yes back problems, arthritis and gout; no rheumatoid arthritis or joint pain Cardio Cardiovascular: Yes high blood pressure, heart attack and heart stent; no murmur, pacemaker, heart disease, atrial fibrillation, palpitations, shortness of breat with exertion or chest pain Psych Psychiatric: Yes depression; no anxiety or hearing voices Resp Respiratory: Yes shortness of breath, Yes sleep apnea, No cough, No COPD, No asthma, No emphysema, No wheezing Gastro Gastrointestinal: Yes abdominal pain, No nausea or vomiting, Yes diarrhea, No constipation, No blood in stool, No acid reflux, No hemorrhoids, No ulcers, No gallbladder problem, Yes black,tarry stools Tom Hematologic: Yes blood thinners, No blood disorders, No bleeding, No anemia, No blood clots Neuro Neurologic: No weakness Exam Const General: cooperative, comfortable, no acute distress Nutritional Appearance: obese other (Super morbidly obese) Orientation: alert, awake, oriented x3 HENMT Head: normal to inspection Neck Neck: normal visual inspection Chest Chest palpation & inspection: normal inspection of the chest Resp Effort & Inspection: normal respiratory effort Auscultation: clear to auscultation bilaterally Cardio Rate: regular rate Rhythm: regular rhythm Heart Sounds: no murmurs GI Palpation: soft, no hepatosplenomegaly Other: I am not able to check any internal organs secondary to body habitus Musc Cervical Spine: normal cervical lordosis Neuro General: alert, awake Extrem General: no calf tenderness bilaterally Psych Affect: normal affect Assessment & Plan Problems 1. Black tarry stools K92.1 Plan 68-year-old female with black tarry stools intermittently. She is at risk for either an upper or lower GI bleed. She is on clopidogrel for coronary stent drug-eluting placed March 2018. She has had a previous history of colon polyps times 10/2014 with a poor bowel prep at that time making visualization challenging. I proposed for her a esophagogastroduodenoscopy with possible biopsy and colonoscopy with possible biopsy or polypectomy as indicated. We will utilize a 2-day bowel prep. Patient's body habitus of BMI 56% places her at increased interventional risk as does her coronary disease. I will utilize monitored anesthesia care. We will have her hold her clopidogrel only 1 day preprocedure. She has had an opting to ask and have questions answered. We will schedule and proceed as noted. I appreciate the opportunity of assisting with her surgical care. CC: Dr. Sachin Almanza and Dr. Franklyn Joiner M.D., F.A.C.S. Orders Orders: Colonoscopy Today K92.1 EGD Today Medications New: peg 3350-electrolytes 236-22.74-6.74 -5.86 gram (Golytely) until fecal effluent is clear; do not exceed a total volume [id number] mL 240 mL PO Q10M 4,000 mL 0RF screening colonoscopy Z12.11 Coding Level of Care Code Off vis,new,level 3 Diagnoses Black tarry stools K92.1 01/22/19 [id number] <Electronically signed by Titus Joiner MD> Date Titus Joiner MD I have re-examined the patient. There are no clinical changes since date of exam.
[2019-02-09 07:44] VITALS: BP 137/43; PULSE 65; RESP 16; TEMP 36.6; O2SAT 95; BMI 55.5
[2019-02-09 08:16] LABS: Bedside Glucose 94 mg/dL (70-110)
--- NOTE | 2019-02-09 08:30 | EGD_PTH ---
PATIENT: JACEK LOPEZ LOC: EN U#:[id number] AGE/SX: 68/F ROOM: RE02/09/[address]: Dr. Titus Joiner MD : 1950 BED: DIS: 02/09/2019 SPEC #: [id number] RECD: 02/09/19 09:38 STATUS: SEPIDEH MADELIN #: [id number] GUDELIA: 02/09/19 08:[address]: Titus Joiner DEPT: SURGICAL PATHOLOGY RECD BY: Kit Lao ENTERED: 02/09/19 11:46 SP TYPE: EGD BIOPSY OTHR DR: Dr. Sachin Almanza DO Tissues: A - Gastric mucous membrane B - Stomach, NOS C - Esophageal mucous membrane D - Cecum, NOS E - Ascending colon Procedures: Surgery Specimen Level IV HEADER OPERATION: Colonoscopy, EGD ([facility]) PRE-OP DIAGNOSIS: Black tarry stools TISSUE SUBMITTED: A - Antral biopsy and H. pylori, B - Body of stomach, C - Distal esophageal biopsy, D - Polyp x2 at cecum, E - Polyp mid ascending MICROSCOPIC DIAGNOSIS A. Gastric antrum, biopsy: Mild chronic gastritis. See comment. B. Gastric body, biopsy: Mild chronic gastritis. C. Distal esophagus, biopsy: No pathological diagnosis. D. Cecal polyps, biopsy: Fragments of tubular adenoma. E. Mid ascending colon polyp, biopsy: Fragments of tubular adenoma. AM:michelle 02/13/19 COMMENT A. The results of immunohistochemistry for Helicobacter pylori will be reported separately ([id number]). MICROSCOPIC DESCRIPTION Slides are reviewed. GROSS DESCRIPTION A - Received in fixative is one container labeled with the patient's name and designated antral biopsy. The specimen consists of one irregular fragment of light chirinos soft tissue that measures 0.5 x 0.2 x 0.1 cm. The specimen is totally submitted in one cassette. B - Received in fixative is one container labeled with the patient's name and designated body of stomach. The specimen consists of multiple irregular fragments of light chirinos soft tissue that in aggregate measure 0.5 x 0.2 x 0.1 cm. The specimen is totally submitted in one cassette. C - Received in fixative is one container labeled with the patient's name and designated distal esophagus biopsy. The specimen consists of multiple irregular fragments of light chirinos soft tissue that in aggregate measure 0.7 x 0.5 x 0.1 cm. The specimen is totally submitted in one cassette. D - Received in fixative is one container labeled with the patient's name and designated polyp at cecum. The specimen consists of multiple irregular fragments of light chirinos soft tissue that in aggregate measure 1.3 x 0.5 x 0.1 cm. The specimen is totally submitted in one cassette. E - Received in fixative is one container labeled with the patient's name and designated mid ascending polyp. The specimen consists of multiple irregular fragments of light chirinos soft tissue that in aggregate measure 2.5 x 0.6 x 0.1 cm. The specimen is totally submitted in one cassette. / AM:rg 02/09/19 TC:5 CPT: 03592 x5
--- NOTE | 2019-02-09 08:30 | IMM_PTH ---
PATIENT: JACEK LOPEZ LOC: EN U#:[id number] AGE/SX: 68/F ROOM: RE02/09/[address]: Dr. Titus Joiner MD : 1950 BED: DIS: 02/09/2019 SPEC #: [id number] RECD: 02/09/19 14:34 STATUS: SEPIDEH RERaleigh #: [id number] GUDELIA: 02/09/19 08:[address]: Titus Joiner DEPT: IMMUNOHISTOCHEMISTRY RECD BY: Rochelle Cummins ENTERED: 02/09/19 14:35 SP TYPE: IMMUNO OTHR DR: Dr. Sachin Almanza, Tissues: A - Stomach, NOS Procedures: H Pylori (initial) PHYSICIAN & INSTITUTION [place] [id number] SPECIMEN INFORMATION: Tissue Source: A - Antral biopsy Clinical Info: Black tarry stools Specimen Number: [id number] CPT code: 75187 METHODOLOGY: Deparaffinized sections of prefer/formalin-fixed tissue or PAP/DQ stained slides are incubated with monoclonal/polyclonal antibodies/oligonucleotide probes. Localization is made via biotin free immunoperoxidase method. Appropriate controls are performed and reacted as expected. Results on target cell population are indicated in the following table: RESULTS: ANTIBODY / CLONE RESULT Block A H Pylori (polyclonal) negative These tests were developed and their performance characteristics determined by [facility]. They may not have been cleared or approved by the U.S. Food and Drug Administration. The FDA has determined that such clearance or approval is not necessary. INTERPRETATION: A. Antral biopsy: Negative for Helicobacter pylori organisms. AM:michelle 02/13/19
[2019-02-09 09:33] VITALS: BP 137/43; BP 90/71; PULSE 71; RESP 18; TEMP 36.6; O2SAT 96
--- NOTE | 2019-02-09 09:33 | OP.ENDO_ITS ---
02/09/2019 Sachin Almanza [address] [facility] [place] [address] Re : Upper GI endoscopy procedure for Paula Olson Dear Dr. Almanza This procedure was performed on Saturday, February 09, 2019. My impressions and recommendations are as follows: Impressions : - Z-line regular, 40 cm from the incisors. Biopsied. - Small hiatal hernia. - Erythematous mucosa in the gastric body and antrum. Biopsied. Possible bile reflux gastritis - Normal examined duodenum. Recommendations : - Discharge patient to home. - Resume previous diet. - Continue present medications. - Telephone my office for pathology results in 1 week. Await biopsies My findings are described in the full procedure note, which is enclosed. If I can be of further assistance, please feel free to contact me at Doctor phone number(s): Work: . Sincerely, Titus Joiner MD 02/09/2019 9:33:25 AM This report has been signed electronically.
[2019-02-09 09:35] VITALS: BP 137/43; BP 92/63; PULSE 68; RESP 18; O2SAT 98
--- NOTE | 2019-02-09 09:39 | OP.ENDO_ITS ---
02/09/2019 Sachin Almanza [address] [facility] [place] [address] Re : Colonoscopy procedure for Paula Olson Dear Dr. Almanza This procedure was performed on Saturday, February 09, 2019. My impressions and recommendations are as follows: Impressions : - Hemorrhoids found on perianal exam. - Two 3 to 5 mm polyps in the cecum, removed with a cold biopsy forceps. Resected and retrieved. - One 16 mm polyp in the mid ascending colon, removed with a hot snare and removed piecemeal using a hot snare. Resected and retrieved. Clips were placed. - One 4 mm polyp in the mid ascending colon, removed with a cold biopsy forceps. Resected and retrieved. - Diverticulosis in the sigmoid colon. Recommendations : - Discharge patient to home. - Resume previous diet. - Continue present medications. - Repeat colonoscopy in 1 year for surveillance. - Telephone my office for pathology results in 1 week. My findings are described in the full procedure note, which is enclosed. If I can be of further assistance, please feel free to contact me at Doctor phone number(s): Work: . Sincerely, Titus Joiner MD 02/09/2019 9:38:46 AM This report has been signed electronically.
[2019-02-09 09:40] VITALS: BP 111/56; BP 137/43; PULSE 63; RESP 18; TEMP 36.6; O2SAT 96
[2019-02-09 10:31] VITALS: BP 137/43
== END 2019-02-09 10:38 | disposition home or self-care (01) ==
LOC: EN 07:27 → AC 07:28
PROVIDERS: Family Provider Family Medicine; PCP Family Medicine; Referring Provider Family Medicine; Visit Provider Surgery
PROC: 0DJD8ZZ Inspection of Lower Intestinal Tract, Via Natural or Artificial Opening Endoscopic (ICD-10-PCS; CPT 45378; principal; 2019-02-09 08:25)
DX: D12.2 Benign neoplasm of ascending colon (principal); D12.0 Benign neoplasm of cecum; K57.30 Diverticulosis of large intestine without perforation or abscess without bleeding; K29.50 Unspecified chronic gastritis without bleeding; K44.9 Diaphragmatic hernia without obstruction or gangrene; I12.9 Hypertensive chronic kidney disease with stage 1 through stage 4 chronic kidney disease, or unspecified chronic kidney disease; E11.22 Type 2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with diabetic chronic kidney disease; N18.3 Chronic kidney disease, stage 3 (moderate); I25.10 Atherosclerotic heart disease of native coronary artery without angina pectoris; E78.00 Pure hypercholesterolemia, unspecified; M10.9 Gout, unspecified; G47.30 Sleep apnea, unspecified; K21.9 Gastro-esophageal reflux disease without esophagitis; F32.9 Major depressive disorder, single episode, unspecified; E66.01 Morbid (severe) obesity due to excess calories; Z68.43 Body mass index [BMI] 50.0-59.9, adult; I25.2 Old myocardial infarction; Z78.0 Asymptomatic menopausal state; Z88.6 Allergy status to analgesic agent; Z88.0 Allergy status to penicillin; Z88.2 Allergy status to sulfonamides; Z79.02 Long term (current) use of antithrombotics/antiplatelets; Z79.899 Other long term (current) drug therapy; Z86.010 Personal history of colon polyps; Z95.5 Presence of coronary angioplasty implant and graft; Z85.828 Personal history of other malignant neoplasm of skin; K64.9 Unspecified hemorrhoids
CPT/HCPCS: 43239; 45380; 45385; 82962; 88305; 88342; J7120; J2405

== ENCOUNTER → 2019-04-25 09:38 | Outpatient (CLI) | payer MEDICARE, OTHER, SELFPAY ==
[2018-03-28 12:55] VITALS: BMI 56.3
[2019-04-07 12:43] VITALS: BMI 55.5
[2019-04-25 10:14] LABS: Hematocrit 42.7 % (37-47); Hemoglobin 13.6 g/dL (12.0-15.0); Mean Corp Hgb Conc 31.9 g/dL (32-36); Mean Corpuscular Hgb 30.6 pg (27.0-32.0); Mean Corpuscular Volume 96.2 fL (81-99); Mean Platelet Vol. 9.1 fl (6.2-12.0); Platelet Count 230 K/mm3 (150-450); RBC Distribution Width SD 49.1 fl (35.1-43.9); Red Blood Count 4.44 M/mm3 (4.2-5.4); White Blood Count 7.6 K/mm3 (4.4-11.0)
[2019-04-25 10:53] LABS: PTHIN 56.1 pg/mL (18.4-80.1); Vitamin D,25 Hydroxy 46.4 ng/mL (29.95-100.01)
[2019-04-25 11:11] LABS: ALB/GLOB Ratio 1.2 RATIO (0.9-2.4); AST(SGOT) 16 U/L (15-37); Alanine Aminotransfer ALT/SGPT 22 U/L (13-56); Albumin, Serum 3.9 g/dL (3.2-5.0); Alkaline Phosphatase 87 U/L (45-117); Anion Gap 9 (5-15); BUN 41 mg/dL (7-18); BUN/Creat Ratio 23.4 RATIO (10-20); Calcium,Total 9.2 mg/dL (8.5-10.1); Chloride 104 mmol/L (98-107); Creatinine, Serum 1.75 mg/dL (0.55-1.02); EST Glomerular Filtration Rate 31 mL/min (>60); Est Glom Filt Rate - Afr Amer 37 mL/min (>60); Globulin 3.2 g/dL (2.2-4.2); Glucose 116 mg/dL (74-106); Magnesium 2.3 mg/dL (1.6-2.6); Phosphorus 3.5 mg/dL (2.5-4.9); Potassium 4.2 mmol/L (3.5-5.1); Protein, Total 7.1 g/dL (6.4-8.2); Sodium Level 137 mmol/L (136-145); Thyroid Stim Hormone (TSH) 1.64 uIU/mL (0.358-3.74)
[2019-04-25 11:52] LABS: Microalbumin,Random Urine < 5.0 mg/L (NO RANGE EST.)
== END ==
PROVIDERS: Family Provider Family Medicine; PCP Family Medicine; Referring Provider Internal Medicine Nephrology; Visit Provider Internal Medicine Endocrinology, Diabetes & Metabolism
DX: E11.22 Type 2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with diabetic chronic kidney disease (principal); N18.4 Chronic kidney disease, stage 4 (severe); E55.9 Vitamin D deficiency, unspecified
CPT/HCPCS: 36415; 80053; 82043; 82306; 82570; 83036; 83735; 83970; 84100; 84443; 85027

== ENCOUNTER → 2019-05-16 15:51 | Outpatient (CLI) | payer MEDICARE, OTHER, SELFPAY ==
[2018-03-28 12:55] VITALS: BMI 56.3
[2019-04-07 12:43] VITALS: BMI 55.5
== END ==
PROVIDERS: Family Provider Family Medicine; PCP Family Medicine; Referring Provider Otolaryngology Otolaryngology/Facial Plastic Surgery; Visit Provider Otolaryngology Otolaryngology/Facial Plastic Surgery
DX: J34.89 Other specified disorders of nose and nasal sinuses (principal)
CPT/HCPCS: 87070; 87205

== ENCOUNTER → 2019-08-03 06:44 | Outpatient (CLI) | payer MEDICARE, OTHER, SELFPAY ==
[2018-03-28 12:55] VITALS: BMI 56.3
[2019-07-16 15:43] VITALS: BMI 57.8
[2019-07-20 10:45] VITALS: BMI 57.8
--- NOTE | 2019-08-03 07:00 | ECHOCS_ITS ---
Reason For Study: CHEST PAIN Procedure This was a 2D Doppler, Color Flow transthoracic echocardiogram. The study was technically difficult. Contrast injection was performed. Exam performed in department. Left Ventricle Normal LV size. Left ventricular systolic function is normal. The estimated ejection fraction is 65 %. Diastolic function is indeterminate. No regional wall motion abnormalities noted. Right Ventricle Normal RV size. Normal systolic function. Atria Normal left atrium. Normal right atrium. No doppler evidence for ASD. Mitral Valve There is no mitral annular calcification. Normal mitral valve. Trivial mitral valve insufficiency. Tricuspid Valve Normal tricuspid valve. Mild to moderate (1-2+) tricuspid valve insufficiency. Right ventricular systolic pressure estimated to be 25 mmHg. Aortic Valve Trisinus/trileaflet aortic valve. Mild focal aortic valve calcification. Trivial aortic valve insufficiency. Pulmonic Valve The pulmonic valve is not well visualized. Trivial pulmonic valve insufficiency. Great Vessels Normal sized aortic root. Pericardium/Pleural No pericardial effusion. Epicardial fat. Medication Diluted definity 3.5ml given slow IV push to enhance endocardial definition. MMode/2D Measurements & Calculations LVIDd: 4.7 cm IVSd: 0.77 cm Ao root diam: 3.8 cm LVIDs: 3.1 cm LVPWd: 0.87 cm RVDd: 3.9 cm FS: 34.1 % LAV(MOD-bp): 41.4 ml LVAd ap4: 31.8 cm2 SV(MOD-sp4): 72.5 ml LAV(MOD-bp) Indexed: 17.8 ml/m2 EDV(MOD-sp4): 103.6 ml LAV(MOD-sp2): 49.7 ml EDV(sp4-el): 109.1 ml LAV(MOD-sp4): 30.6 ml LVAs ap4: 15.0 cm2 ESV(MOD-sp4): 31.1 ml ESV(sp4-el): 33.0 ml EF(MOD-sp4): 69.9 % EF(sp4-el): 69.8 % SV(sp4-el): 76.1 ml LA A4 area: 14.2 cm2 LA dimension(2D): 3.0 cm RA A4 area: 12.3 cm2 Time Measurements MV dec time: 0.25 sec Doppler Measurements & Calculations MV E max grant: 92.8 cm/sec Lat Peak E' Grant: 9.6 cm/sec Med Peak E' Grant: 6.7 cm/sec MV A max grant: 82.0 cm/sec E/E' lat: 9.7 E/E' med: 13.8 MV E/A: 1.1 Ao V2 max: 162.3 cm/sec LV V1 max: 109.2 cm/sec TR max grant: 235.4 cm/sec Ao max P.5 mmHg LV V1 max P.8 mmHg TR max P.2 mmHg Interpretation Summary The study was technically difficult. Contrast injection was performed. Left ventricular systolic function is normal. The estimated ejection fraction is 65 %. Trivial mitral valve insufficiency. Mild to moderate (1-2+) tricuspid valve insufficiency. Mild focal aortic valve calcification. Trivial aortic valve insufficiency. Trivial pulmonic valve insufficiency. Epicardial fat. Right ventricular systolic pressure estimated to be 25 mmHg. Diastolic function is indeterminate. Ordering Physician: Franklyn Winter Referring Physician: NAN RIOS Performed By: Bekah Randall, GRACE, RVT
[2019-08-03 07:43] LABS: AST(SGOT) 14 U/L (15-37); Alanine Aminotransfer ALT/SGPT 22 U/L (13-56); Albumin, Serum 3.8 g/dL (3.2-5.0); Alkaline Phosphatase 87 U/L (45-117); Bilirubin, Direct 0.16 mg/dL (0.00-0.30); Cholesterol 211 mg/dL (200); Globulin 3.1 g/dL (2.2-4.2); High Density Lipoprotein 44 mg/dL; Protein, Total 6.9 g/dL (6.4-8.2); Triglycerides 171 mg/dL; Very Low Density Lipoprotein 34 mg/dL (5-40)
--- NOTE | 2019-08-03 10:51 | STRESSREP_ITS ---
Stress Test Report Date: 08-03-19 Procedure: Pharmacologic stress nuclear imaging study Indications: Chest pain; fatigue; CAD; PCI Consent: Per the patient Procedure: The patient underwent pharmacologic (Regadenoson) evaluation with a peak heart rate of 82 beats per minute (54 %predicted maximal heart rate) and a peak blood pressure of 122/78 mmHg. The baseline ECG demonstrated normal sinus rhythm; nonspecific T wave abnormality. The peak pharmacologic ECG demonstrated no obvious ECG changes. There were no cardiac dysrhythmias pretest, during pharmacologic infusion, or recovery. There was no complaint of chest discomfort during pharmacologic infusion or recovery. The examination was discontinued secondary to completion of protocol. Impression: 1. Pharmacologic (Regadenoson) evaluation 2. Peak pharmacologic ECG with continued nonspecific T wave abnormality with no obvious ECG changes. 3. There were no cardiac dysrhythmias pretest, during pharmacologic infusion, or recovery. 4. Nuclear images pending Myocardial perfusion imaging study: Technique: The patient was injected with 15.0 millicuries of technetium 99m Cardiolite and subsequently rest SPECT Cardiolite nuclear imaging was obtained in the horizontal long, vertical long, and short axis views. The patient underwent pharmacologic (Regadenoson) evaluation with a peak heart rate of 82 beats per minute (54 % percent predicted maximal heart rate) and a peak blood pressure of 122/78 mmHg. The patient was injected with 45.0 millicuries of technetium 99m Cardiolite and subsequently stress SPECT Cardiolite nuclear imaging was obtained in the horizontal long, vertical long, and short axis views. A gated Cardiolite study at peak stress was obtained. Interpretation: Rest and stress SPECT Cardiolite nuclear imaging status post realignment, normalization, and attenuation correction demonstrate at rest areas of diminished myocardial perfusion/tracer uptake in portions of the basal to distal anterior, anterior apical and mid to distal anterolateral segments. Status post stress there is notation of improvement/normalization of the aforementioned findings with the exception of the mid to distal anterior/anterior apical segments. There are similar type findings on the resting and stress polar map images. There is end systolic thickening and brightening. The gated Cardiolite study demonstrates myocardial thickening and inward wall motion. The reported LVEF is 80 %. Impression: 1. Rest and stress SPECT Cardiolite nuclear imaging demonstrate myocardial perfusion changes appearing compatible with the effects of shifting soft tissue attenuation/artifact, however, an area of previous myocardial injury/infarction involving portions of the mid to distal anterior/anteroapical segments cannot necessarily be excluded. There are no myocardial perfusion changes considered diagnostic for associated stress-induced myocardial ischemia. 2. The gated Cardiolite study reports an LVEF of 80 %. This note was generated with [id number] software. It may contain incorrect words, spelling, and punctuation that were not noted in checking the note before signing.
== END ==
PROVIDERS: Family Provider Family Medicine; PCP Family Medicine; Referring Provider Internal Medicine Cardiovascular Disease; Visit Provider Internal Medicine Cardiovascular Disease
DX: R07.9 Chest pain, unspecified (principal); I25.10 Atherosclerotic heart disease of native coronary artery without angina pectoris; I10 Essential (primary) hypertension; E78.00 Pure hypercholesterolemia, unspecified; Z95.5 Presence of coronary angioplasty implant and graft
CPT/HCPCS: 36415; 78452; 80061; 80076; 93017; 93306; A9500; Q9957; A4216; C8929; J2785

== ENCOUNTER 2019-09-04 14:00 | Inpatient (IN) | payer MEDICARE, OTHER, SELFPAY ==
[2018-03-28 12:55] VITALS: BMI 56.3
[2019-07-20 10:45] VITALS: BMI 57.8
--- NOTE | 2019-09-04 15:12 | PCM.HP.STD ---
Problem List (1) Morbid obesity Status: Chronic (2) Osteoarthritis Status: Chronic Qualifiers: Osteoarthritis location: multiple joints Osteoarthritis type: primary Qualified Code(s): M15.0 - Primary generalized (osteo)arthritis (3) S/p reverse total shoulder arthroplasty Status: Acute Qualifiers: Laterality: right Qualified Code(s): Z96.611 - Presence of right artificial shoulder joint Comment: 09/03/19 (4) Physical debility Status: Acute (5) Pure hypercholesterolemia Status: Chronic (6) Essential hypertension Status: Chronic (7) GERD (gastroesophageal reflux disease) Status: Chronic (8) Sleep apnea Status: Chronic (9) Presence of stent in coronary artery Status: Chronic Comment: PTCA/ELFEGO to the prox LAD in 03/28/18 (10) Atherosclerotic heart disease of [place] coronary artery without angina pectoris Status: Chronic Qualifiers: [place] vs. transplanted heart: [place] heart Qualified Code(s): I25.10 - Atherosclerotic heart disease of [place] coronary artery without angina pectoris Comment: S/P PTCA/ELFEGO to prox LAD in March 2018; (11) Type 2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Status: Chronic Qualifiers: Diabetes mellitus complication status: with kidney complications Diabetes mellitus complication detail: with chronic kidney disease Chronic kidney disease stage: stage 3 (moderate) (12) Hypertension Status: Chronic Qualifiers: Hypertension type: essential hypertension Qualified Code(s): I10 - Essential (primary) hypertension (13) Diet-controlled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Status: Chronic (14) Gout Status: Chronic History of Present Illness Date of Admission: 09/04/19 Chief Complaint: debility and pain due to reverse arthroplasty R shoulder The pt is a 68-year-old female with a PMH of essential hypertension,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type 2, morbid obesity, coronary artery disease with history of stent to the LAD in 2018, GERD, gout, obstructive sleep apnea, stage III chronic renal failure and osteoarthritis admitted to the Inpatient rehab unit at [facility] on 09/04/2019 for debility secondary to right reverse shoulder arthroplasty on 09/03/2019 for greater than 3 hours of therapy daily with a goal of returning home at or near prior level of independence. The patient lives at home with her and has 2 steps to get into the house. The patient was independent with ADL's, mobility and driving prior to hospitalization. States the current pain regimen is adequately controlling her pain. No bowel issues. No nausea with the pain medication. No CP and no SOB at rest. She has some ESCOBAR on a regular basis. Appetite is good. The last HGBA1C in April was very good. She sees Dr. Winter for cardiology and Dr. Clancy for Nephrology. Echocardiogram 08/03/2019 showed a left ventricular ejection fraction of 65% with trivial MR, mild to moderate TR and a right ventricular systolic pressure estimated to be 25. Had a stress test on 08/03/19...no report in the computer. I presume it was negative since she was cleared for surgery. Will get a copy of the report for the chart. Has not had a sleep study for many years. Her PCP keeps reordering the same settings and she has gained weight over the years. She c/o always feeling tired and not feeling rested when she gets up in the AM. She also has some restless leg and she is on 2 different medications for depression. She brought in her CPAP unit with her. When ambulating in the [facility] with PT her pulse ox dropped to 86%. O2 was applied. Past Medical History Past Medical History (Chronic Problems): Chronic Problems (Last Updated 08/03/19 @ 10:11 by Sherrie Goldsmith) Morbid obesity (Chronic) Osteoarthritis (Chronic) Pure hypercholesterolemia (Chronic) Essential hypertension (Chronic) CKD (chronic kidney disease) stage 3, GFR 30-59 ml/min (Chronic) GERD (gastroesophageal reflux disease) (Chronic) Sleep apnea (Chronic) Presence of stent in coronary artery (Chronic ~03/28/18) PTCA/ELFEGO to the prox LAD in 03/28/18 Atherosclerotic heart disease of [place] coronary artery without angina pectoris (Chronic) S/P PTCA/ELFEGO to prox LAD in March 2018; Type 2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(Chronic) Hypertension (Chronic) Diet-controlled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(Chronic) Gout (Chronic) Medical History: Medical History (Last Reviewed 09/04/19 @ 16:11 by Olivia Luque DO) Pure hypercholesterolemia (Chronic) E78.00 Essential hypertension (Chronic) I10 CKD (chronic kidney disease) stage 3, GFR 30-59 ml/min (Chronic) N18.3 GERD (gastroesophageal reflux disease) (Chronic) K21.9 Sleep apnea (Chronic) G47.30 Presence of stent in coronary artery (Chronic) Onset Date: ~03/28/18 Z95.5 PTCA/ELFEGO to the prox LAD in 03/28/18 Atherosclerotic heart disease of [place] coronary artery without angina pectoris (Chronic) I25.10 S/P PTCA/ELFEGO to prox LAD in March 2018; Type 2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(Chronic) E11.9 Gout M10.9 Osteoarthritis M19.90 Presence of stent in coronary artery Z95.5 Black tarry stools (Resolved) K92.1 Allergies naproxen [From Naprosyn] Adverse Reaction (Severe, Verified 07/16/19 15:43) INTERNAL BLEEDING prednisone Adverse Reaction (Severe, Verified 07/16/19 15:43) COMBINATION WITH NAPROXEN CAUSED INTERNAL BLEEDING exenatide [From Byetta] Adverse Reaction (Intermediate, Verified 07/16/19 15:43) Unknown ezetimibe [From Zetia] Adverse Reaction (Intermediate, Verified 07/16/19 15:43) Unknown fluticasone [From Flonase] Adverse Reaction (Intermediate, Verified 07/16/19 15:43) Unknown amoxicillin [From Augmentin] Adverse Reaction (Unknown, Verified 07/16/19 15:43) Unknown clavulanic acid [From Augmentin] Adverse Reaction (Unknown, Verified 07/16/19 15:43) Unknown clorazepate dipotassium [From Tranxene T-Tab] Adverse Reaction (Unknown, Verified 07/16/19 15:43) Unknown indomethacin [From Indocin] Adverse Reaction (Unknown, Verified 07/16/19 15:43) Unknown ketoprofen [From Oruvail] Adverse Reaction (Unknown, Verified 07/16/19 15:43) Unknown nizatidine [From Axid] Adverse Reaction (Unknown, Verified 07/16/19 15:43) Unknown ranitidine [From Zantac] Adverse Reaction (Unknown, Verified 07/16/19 15:43) Unknown rosuvastatin [From Crestor] Adverse Reaction (Unknown, Verified 07/16/19 15:43) Unknown sertraline [From Zoloft] Adverse Reaction (Unknown, Verified 07/16/19 15:43) Unknown sulfamethoxazole [From Septra] Adverse Reaction (Unknown, Verified 07/16/19 15:43) Unknown trimethoprim [From Septra] Adverse Reaction (Unknown, Verified 07/16/19 15:43) Unknown NSAIDS (Non-Steroidal Anti-Inflamma Adverse Reaction (Verified 07/16/19 15:43) Other CKD STAGE4 naldecon Adverse Reaction (Unknown, Uncoded 07/16/19 15:43) Unknown Home Medications: Ambulatory Orders Medication Instructions Recorded Furosemide [Lasix] 40 mg PO DAILY 12/22/14 Lisinopril [Zestril] 20 mg PO DAILY 12/22/14 buPROPion SR [Wellbutrin SR (150mg 150 mg PO QHS 12/22/14 tablets)] allopurinol 100 mg tablet 100 mg PO BID tab 03/15/18 citalopram 20 mg tablet 20 mg PO QDAY tab 03/15/18 repaglinide 1 mg tablet 1 mg PO QDAY tab 03/15/18 Cholecalciferol (Vitamin D3) 5,000 unit PO DAILY 04/07/18 [Vitamin D3] metoprolol tartrate 25 mg tablet 25 mg PO BID #180 tab 05/12/18 pantoprazole 20 mg tablet,delayed 20 mg PO DAILY 01/22/19 release sucralfate 1 gram tablet 1 g PO QACHS #120 tab 02/14/19 clopidogrel 75 mg tablet 75 mg PO DAILY #90 tab 04/11/19 liraglutide 0.6 mg/0.1 mL (18 mg/3 0.6 mg SC DAILY 06/29/19 mL) subcutaneous pen injector colestipol 1 gram tablet 2 g PO BID #120 tab 09/04/19 Surgical History: Surgical History (Last Reviewed 09/04/19 @ 16:11 by Olivia Luque DO) History of carpal tunnel surgery Z98.890 Presence of coronary angioplasty implant and graft Onset Date: ~03/28/18 Z95.5 PTCA/ELFEGO to the prox LAD 03/28/18 History of arthroscopy of right shoulder Z98.890 History of cholecystectomy Z90.49 Hx of appendectomy Z90.49 Hx of arthroscopy of right knee Z98.890 Surgical History: appendectomy, cholecystectomy, - - Right shoulder by Dr. Kevon Moon. R revers shoulder arthroplasty on 09/03/19 at the 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 Lives: Spouse/ Significant Other Smoking Status: Never smoker Tobacco Use: Non-smoker Alcohol: Rare Drugs: None - *Family History Maternal Family History: Family History (Last Reviewed 07/16/19 @ 15:45 by Sherrie Goldsimth) Mother Hypertension Myocardial infarction CAD (coronary artery disease) Diabetes Father Angina pectoris Alzheimer disease History Items: - - mother had a hx of multiple blood clots in the legs Review of Systems Constitutional: Denies: Anorexia, Chills, Fever, Malaise, Weight Change Eyes: Denies: Blurred vision HEENT: Denies: Difficulty Swallowing, Head Aches, Sinus Congestion, Sinus Drainage, Sore Throat Cardiovascular: Reports: Edema - sometimes at the end of the day.. Denies: Chest Pain, Chest Pressure, Chest Tightness, Light Headedness, Palpitations, Syncope Respiratory: Reports: Shortness of Breath, Shortness of breath upon exertion. Denies: Cough, Shortness of breath at rest, Sputum production Gastrointestinal: Denies: Abdominal Pain, Constipation, Diarrhea, Nausea, Vomiting Genitourinary: Denies: Dysuria Gynecological: Denies: Breast symptoms, Vaginal discharge Musculoskeletal: Reports: Shoulder Pain. Denies: Joint Pain, Joint Tenderness Skin: Denies: Jaundice, Rash, Wounds Neurological: Denies: Slurred speech, Confusion, Focal weakness, Numbness, Tingling, Tremor, Seizures Psychiatric: Reports: Depression. Denies: Anxiety, Homicidal Ideations, Suicidal Ideations Hematologic/ Lymphatic: Denies: Easy Bruising, Easy Bleeding, Hx of blood clot VTE Information - Inpt Only VTE Present on Admission: No VTE Mechan Device Prophylaxis: Knee High VINI Hose VTE Pharm Prophylaxis ordered?: Yes Patient Problems: Active and Suspected Problems (Last Updated 08/03/19 @ 10:11 by Sherrie Goldsmith) S/p reverse total shoulder arthroplasty (Acute) 09/03/19 Physical debility (Acute) - Physical Exam Vitals/I&O's: Body Mass Index (BMI) 57.8 Finger Stick Blood Glucose 101 General: Alert, Oriented x3, Cooperative, No apparent distress, Well developed, Well nourished HEENT: Atraumatic, PERRLA, EOMI, Normocephalic Oral: No Gingival or Mucosal Lesions/ Ulcerations, Dry Mucosa Neck: Supple, No JVD, Negative Carotid Bruits, No Nodes, Trachea Midline Lungs: Clear to auscultation, Diminished Cardiovascular: Regular rate, Regular Rhythm, Normal S1, Normal S2, No murmurs, No rub noted, No Gallop Abdomen: Bowel Sounds Present, Soft, Non Tender, Non-Distended, Obese Extremities: No clubbing, No cyanosis, Capillary Refill Less than 3 Seconds, Edema - mild ankle edema Skin: No rashes, No breakdown Musculoskeletal: No Muscle Wasting Neurological: Cranial nerves II-XII grossly intact, Neuro grossly intact Psych/Mental Status: Normal Affect, Appropriate Assessment/Plan All Active Problems (Last Updated 08/03/19 @ 10:11 by Sherrie Goldsmith) S/p reverse total shoulder arthroplasty (Acute) Physical debility (Acute) Antibiotic-induced yeast infection (Resolved) Black tarry stools (Resolved) Sinusitis, acute (Resolved) Impressions 1. debility due to R reverse shoulder arthroplasty 2. hypoxemia with ambulation - will need a walking pulse oximetry before DC to see if she will qualify for oxygen. Will check an overnight trending pulse ox while on the CPAP tonight. 3. BATSHEVA - no sleep study study for many years and she has gained weight. She has chronic fatigue, depression and restless leg. She is hypoxic with ambulation. Needs a new sleep study and also PFT's....suspect she may have significant restrictive lung disease due to weight. Overnight trending pulse ox tonight 4. DM II - good control in April on HGBA1C 5. depression/HTN/CAD/hx stent to the LAD/gout/colon polyp hx/GERD all stable - continue the home meds. HLD is not adequately controlled given DM and known CAD and stent to the LAD - last LDL was 133 and it should be less than 70. PLAN PT for gait stability OT for ADL's ST for evaluation Analgesics as needed Bowel protocol Fall precautions Assess for Anxiety/Depression GI prophylaxis with famotidine DVT prophylaxis with Eliquis 2.5 mg p.o. twice daily while in the rehab unit since she is morbidly obese, greater than 60 years of age and has a family history of recurrent DVTs in her mother Follow up with Dr. Sachin Almanza following DC from Rehab Change the Prandin to 0.5 mg with meals check a HGBA1C CBC, BMP and mag, phos in the AM Defer management of the HLD to Dr. Almanza and Dr. Sebastian. Recommend referral to Dr. Ross or Dr. Ibarra at [place] to arrange a sleep study and PFT's Code Visit Inpatient E&M: 56200 Init Hosp L3
[2019-09-04 15:47] VITALS: BP 108/47; PULSE 68; RESP 18; TEMP 36.6; O2SAT 92; O2SAT 99; BMI 56.7
--- NOTE | 2019-09-04 16:28 | REHABEVAL_ITS ---
Admission Information Primary Diagnosis:: debility due to R reverse shoulder arthroplasty Status Changes from Prescreening?: No changes Identified Actual Problem List:: DVT, Bleeding, Infection, Pain, ALteration in Cmfrt, Depression, Alteration in Sleep, Mobility Impaired, Self Care Deficit, Diabetes, Hyperglycemia, Diabetes, Hypoglycemia, BP, Hypertension, BP, Hypotension, Alteration/ Air Exchange Potential Problem List:: DVT, Bleeding, Infection, UTI, Aspiration, Falls, Skin Integrity, Depression Risk of Complications DVT: VINI Rosariodipti, - - Eliquis 2.5 mg BID Bleeding: Monitor Lab Values, Nursing to Teach Precautions for anti-coagulation therapy., Wound, if applicable, to be assessed every shift., Stroke patients assessed for lethargy or change in status. Infection: Clinical Staff to Monitor for S/S of infection:, S/S of infection include fever, redness, warmth, etc. Urinary Tract Infection: Monitor for frequency, burning, discomfort, or inconti nence., Nursing will obtain urine sample for urinalysis and C&S when ordered. Aspiration: Clinical staff will monitor for coughing, drooling, congestion., Speech will evaluate swallowing and dsyphasia., Nursing will monitor patient swallowing during meals. Falls: Patient will be evaluated for Fall Precautions, Patient will be placed on Fall Precautions as indicated per protocol. Skin Breakdown: Nursing will assess skin daily using assessment tool., Nursing will place on Skin Breakdown Precautions as indicated. Pain: Clinical staff will assess patient's pain level per protocol., Medications will be given, if needed, and the pain level reassessed., Other methods: Massage, distraction, decrease stimulus, etc. used PRN. Plan of Care Patient requires physician specializing in physical medicine and rehab oversight to provide close medical supervision of rehab issues including: Pain Management, Sleep Problems, Bowel and Bladder, Medical and co-morbidity Management, DVT prophylaxis, Rehabilitation Leadership, Coordination of treatment team Patient needs Physical Therapy: For a minimum of 1 hour, At least 5 out of 7 days Patient needs Physical Therapy to improve:: Mobility, Mobility, Mobility, Streng thening, Transfers, Stretching, ROM, Endurance, Stairs, Gait, Balance Patient needs Occupational Therapy: For a minimum of 1 hour, At least 5 out of 7 days Patient needs Occupational Therapy to improve ADL's incl.: Eating, Grooming, Bathing, Dressing, Toileting, Toilet transfers, Community Reintegration, Higher functioning activities, Household tasks, Adaptive Equipment, Splinting, Other activities as determined Patient requires 24/7 Rehabilitation Nursing for: Pain Issues, Identifying and preventing risk factors, Monitoring and reporting current medical conditions, Assisting with ambulation, transfer, and all ADL's, Teaching patients about disease process and medications, Family teaching, Providing safe environment, Bowel and Bladder Issues, Skin integrity, Medication Management Patient needs Membership Manager/ Case Management for: Discharge Planning, Arranging Home Equipment or Services, Family Interventions Patient needs Dietary and Nutrition Services for: Adequate Nutrition, Nutritional Supplements, Nutritional Education Goals Patient will remain: free from falls, or injury at time of discharge. Patient will perform bed mobility at: MOD I level of assist. Patient will complete transfers from bed to chair at: MOD I level of assist. Patient will ambulate: 100 feet, with MOD I assist, with LRD Patient will complete upper body dressing at: MOD I level of assist. Patient will complete lower body dressing at: MOD I level of assist. Patient will complete toileting at: MOD I level of assist. Patient will perform bathing at: MOD I level of assist. Patient will complete grooming at: MOD I level of assist. Patient will complete home management skills at: MOD I level of assist. Patient will achieve: 12 stairs, at MOD I assist Patient will have pain level of: of 3 or less Patient's skin will: remain intact, free from infection. Patient will receive: adequate nutrition. Discharge Planning Pt Prognosis for Sig. Practical Improv. w/in Reasonable Time: Good Estimated Length of stay (days): 7 Anticipated D/C Destination: Home
[2019-09-04] MEDS: oxyCODONE 5 MG Tablet PO ×2 (17:23→21:22)
[2019-09-04 19:00] VITALS: O2SAT 94
[2019-09-04 19:34] VITALS: BP 130/81; PULSE 72; RESP 19; TEMP 36.6; O2SAT 95
--- NOTE | 2019-09-04 21:11 | NURSING ---
Hospitalist, Dr Howard Seyd, paged d/t pt c/o 06/28 pain from rt shoulder surgery. Pt c/o missing a pain med dose in transit and getting behind the pain control. Ice packs refreshed and Dr ordered 1x dose of Oxyir now, to be given with Tylenol 1,000 mg LANDON. Will continue to monitor.
[2019-09-04] MEDS: Acetaminophen 500 MG Tablet 1000 MG PO (21:22)
[2019-09-04] MEDS: APIXABAN 2.5 MG TABLET PO (21:22)
[2019-09-04 21:23] VITALS: PULSE 72
[2019-09-04] MEDS: Metoprolol Tartrate 25 MG Tablet PO (21:23)
[2019-09-04] MEDS: Senna/Docusate Sodium 1 Tablet 2 TABLET PO (21:35)
[2019-09-04 22:00] VITALS: PULSE 72; RESP 17
[2019-09-04 22:05] VITALS: PULSE 82; O2SAT 96
[2019-09-04 22:10] LABS: Bedside Glucose 147 mg/dL (70-110)
[2019-09-05] VITALS (7 sets, daily range): BP systolic 102–106; BP diastolic 53–55; PULSE 76–82; RESP 16–18; TEMP 36.8–37.2; O2SAT 3–93
[2019-09-05] MEDS: oxyCODONE 5 MG Tablet PO ×2 (01:24→05:54)
[2019-09-05] MEDS: Acetaminophen 500 MG Tablet 1000 MG PO ×3 (05:53→22:09)
[2019-09-05 06:15] LABS: Hematocrit 35.1 % (37-47); Hemoglobin 11.6 g/dL (12.0-15.0); Mean Corpuscular Hgb 31.8 pg (27.0-32.0); Mean Corpuscular Volume 96.2 fL (81-99); Mean Platelet Vol. 9.4 fl (6.2-12.0); Platelet Count 198 K/mm3 (150-450); RBC Distribution Width CV 13.6 % (11.6-14.6); RBC Distribution Width SD 48.1 fl (35.1-43.9); Red Blood Count 3.65 M/mm3 (4.2-5.4); White Blood Count 11.1 K/mm3 (4.4-11.0)
[2019-09-05 06:45] LABS: ALB/GLOB Ratio 1.2 RATIO (0.9-2.4); AST(SGOT) 24 U/L (15-37); Alanine Aminotransfer ALT/SGPT 14 U/L (13-56); Albumin, Serum 3.3 g/dL (3.2-5.0); Alkaline Phosphatase 68 U/L (45-117); Anion Gap 4 (5-15); BUN 25 mg/dL (7-18); Calcium,Total 8.7 mg/dL (8.5-10.1); Chloride 108 mmol/L (98-107); Creatinine, Serum 1.25 mg/dL (0.55-1.02); EST Glomerular Filtration Rate 45 mL/min (>60); Est Glom Filt Rate - Afr Amer 55 mL/min (>60); Estimated Creatinine Clearance 33.59 ml/min; Globulin 2.8 g/dL (2.2-4.2); Glucose 111 mg/dL (74-106); Magnesium 2.1 mg/dL (1.6-2.6); Phosphorus 2.2 mg/dL (2.5-4.9); Potassium 4.3 mmol/L (3.5-5.1); Protein, Total 6.1 g/dL (6.4-8.2); Sodium Level 136 mmol/L (136-145)
[2019-09-05 07:15] LABS: Bedside Glucose 118 mg/dL (70-110)
[2019-09-05] MEDS: buPROPion (XL) 150 MG TABLET.XL PO (08:08)
[2019-09-05] MEDS: Allopurinol 100 MG Tablet 200 MG PO (08:08)
[2019-09-05] MEDS: Citalopram 20 MG Tablet PO (08:08)
[2019-09-05] MEDS: APIXABAN 2.5 MG TABLET PO ×2 (08:08→22:09)
[2019-09-05] MEDS: Aspirin 325 MG Tablet PO (08:08)
--- NOTE | 2019-09-05 08:58 | PN_ITS ---
Progress Note Afebile VSS She is 86% on RA with exertion. I reviewed the overnight trending pulse ox. she had 30 desaturations of < 3 minutes while on CPAP. The pulse ox dropped to 83% at one point. I discussed the results with the pt and recommended pulmonary follow up post DC Discussed with nursing - Had a bad night. She tells me that she was taken off the pain pump at the [facility] and placed on oral medications and immediately discharged...... The pain is rated at 10/10 and she has been getting scheduled Tylenol and 5 mg of Oxy IR every 4 hours as needed. Reviewed the PT/OT notes Medication list reviewed. All lab was personally reviewed. Hemoglobin is 11.6 with normochromic normocytic indices. Platelets are within normal limits. The white blood cell count is mildly increased at 11.1 and I suspect this is secondary to stress/pain. CMP shows a BUN of 25 with a creatinine of 1.25 which is actually below her baseline. The creatinine in April 2019 was 1.75. Hemoglobin A1c is 6.0. Magnesium is within normal limits and the phosphorus is low at 2.2. LFTs are unremarkable. The blood sugar record was reviewed and the blood sugars are well controlled. Having muscle spasms in the R chest wall at night. Denies SOB Sitting in the recliner, alert and oriented X3. no ankle edema Lungs - CTA, diminished Heat - RRR, no gallop abd - obese, soft, NT and ND with normal BS's Impressions 1. S/P R reverse shoulder arthroplasty on 09/03/19 2. uncontrolled pain - oxyIR has been increased to 10 mg Q4H PRN pain. Continue the Tylenol 1 GM PO Q 8 hours. Add Tizanidine 2 mg PO Q HS for muscle spasms. 3. hypoxia at night while on BIPAP and with exertion on RA. Follow up with Dr. Ibarra or Dr. Nunes post discharge 4. Morbid obesity - wt loss recommended. Has not been seen by the general service officer yet. Will talk with her about the Why Weight program run by the general service officer's 5. Hypophosphatemia-we will supplement with Neutra-Phos. 6. Diabetes mellitus type 2-very well controlled with a hemoglobin A1c of 6.0% on Prandin 0.5 mg 3 times daily and Victoza 1.8 mg daily. Continue current medications
[2019-09-05] MEDS: Metoprolol Tartrate 25 MG Tablet PO ×2 (09:48→22:09)
[2019-09-05] MEDS: Polyethylene Glycol 3350 17 GM PACKET PO (09:50)
[2019-09-05] MEDS: oxyCODONE 5 MG Tablet 10 MG PO ×4 (10:03→23:05)
[2019-09-05] MEDS: Na Biphos/Potassium Phosphate PACKET 1 PACKET PO ×2 (10:08→16:37)
[2019-09-05] MEDS: Lisinopril 20 MG Tablet PO (11:07)
[2019-09-05] MEDS: Pantoprazole Sodium 20 MG Tablet PO (11:07)
[2019-09-05 12:16] LABS: Bedside Glucose 78 mg/dL (70-110)
--- NOTE | 2019-09-05 13:17 | CASEMGMT ---
SW spoke w/pt in room, discharge plan is to return home w/assist of , open to home health and any additional needed DME. SW will continue to follow for discharge needs.
[2019-09-05 16:51] LABS: Bedside Glucose 77 mg/dL (70-110)
[2019-09-05 21:51] LABS: Bedside Glucose 104 mg/dL (70-110)
[2019-09-05] MEDS: tiZANidine HCl 2 MG Tablet PO (22:15)
[2019-09-06] MEDS: oxyCODONE 5 MG Tablet 10 MG PO ×3 (05:16→23:11)
[2019-09-06] MEDS: Magnesium Hydroxide 30 ML UDC PO (05:16)
[2019-09-06] MEDS: Acetaminophen 500 MG Tablet 1000 MG PO ×3 (05:16→23:14)
[2019-09-06 07:45] LABS: Bedside Glucose 106 mg/dL (70-110)
[2019-09-06] MEDS: Aspirin 325 MG Tablet PO ×2 (07:50→07:51)
[2019-09-06] MEDS: Na Biphos/Potassium Phosphate PACKET 1 PACKET PO ×3 (07:50→17:46)
[2019-09-06] MEDS: Citalopram 20 MG Tablet PO (07:50)
[2019-09-06] MEDS: Allopurinol 100 MG Tablet 200 MG PO (07:51)
--- NOTE | 2019-09-06 08:52 | PCM.PN.BLA ---
Progress Note Afebile VSS Sat dropped to 83% with ambulation yesterday. Discussed with nursing - no problems that need addressed. Pain control is much better controlled with the increase in the Oxy IR to10mg but, she is more sleepy. She was able to sleep last night. Reviewed the PT/OT notes. I reviewed the SW note. Plan is for home at [place]...she is open to [facility] at [place] if necessary Medication list reviewed. She was seen on team rounds today in her room. No family was present. Polar care was ordered for her and this is more effective than the ice bags in controlling her pain. No BM since admission - she did receive MOM today. Lungs - diminished, may be due to body habits. She is using the IS as instructed. Heart - RRR without ectopy no peripheral edema. arouses easily. Impressions 1. Hypoxia with exertion and with sleeping, even with the BIPAP on. Will bleed in 2 LPM of oxygen when she has the CPAP on and she was instructed to wear the CPAP ANYTIME she is napping and all night. She is planning on following up with Pulmonary as an OP. 2. Debility secondary to recent right reverse shoulder arthroplasty 3. Diabetes mellitus type [id number]...BS's are actually in the 70's at times.......May need to decrease the Prandin to 0.5 mg BID however, I suspect her caloric intake will be higher at home. Continue therapy. Start weaning the narcotics in the next few days. Code Visit Inpatient E&M: [id number] [facility] Hosp L2
[2019-09-06 09:46] VITALS: BP 112/58; PULSE 73
[2019-09-06] MEDS: Metoprolol Tartrate 25 MG Tablet PO ×2 (09:46→23:14)
[2019-09-06] MEDS: Polyethylene Glycol 3350 17 GM PACKET PO (09:46)
[2019-09-06] MEDS: Pantoprazole Sodium 20 MG Tablet PO (09:46)
[2019-09-06] MEDS: APIXABAN 2.5 MG TABLET PO ×2 (09:46→23:13)
[2019-09-06] MEDS: buPROPion (XL) 150 MG TABLET.XL PO (09:46)
[2019-09-06] MEDS: Lisinopril 20 MG Tablet PO (09:47)
[2019-09-06 10:00] VITALS: BP 112/58; PULSE 73; RESP 19; TEMP 36.7; O2SAT 93
--- NOTE | 2019-09-06 11:27 | CASEMGMT ---
Social Work IDT met with patient for Team Meeting. Discussed patient's progress in therapy. Pt is walking 100 ft FWW CGA with O2, completed 2 steps CGA/min assist, max assist or UE and LE bathing and dressing due to shoulder restrictions, SBA for transfers. Pt is sleeping well, pain is more controlled. Pt is on new O2, lungs sound diminished. Physician ordered CPAP use during all sleep periods and will recommend O2 bled into CPAP at [place]. Pt uses [facility] - contacted [employer] and they can assist in providing those new supplies at [place]. Pt has f/u appt with 09/07. Explained Medicare coverage. Pt requested SW contact dtr to update on above information - spoke with dtr. Pt provided much praise for RU staff. Will continue to follow. SETH Cortes SUPERVISOR UNLOADING
[2019-09-06 11:40] LABS: Bedside Glucose 76 mg/dL (70-110)
[2019-09-06 16:34] VITALS: O2SAT 93
[2019-09-06 17:36] LABS: Bedside Glucose 63 mg/dL (70-110)
[2019-09-06] MEDS: Bisacodyl 10 MG Suppository RECTAL (18:46)
[2019-09-06 22:00] VITALS: BP 115/49; PULSE 69; RESP 20; TEMP 36.6; O2SAT 97
[2019-09-06 23:14] VITALS: PULSE 69
[2019-09-06] MEDS: tiZANidine HCl 2 MG Tablet PO (23:14)
[2019-09-06 23:21] LABS: Bedside Glucose 80 mg/dL (70-110)
[2019-09-07] MEDS: oxyCODONE 5 MG Tablet 10 MG PO ×4 (03:23→21:07)
--- NOTE | 2019-09-07 03:57 | NURSING ---
REVIEWED AND AGREE WITH OCC THER'S FUNCTIONAL ASSESSMENT AND HANDOFF CHARTING.
[2019-09-07] MEDS: Acetaminophen 500 MG Tablet 1000 MG PO ×3 (06:55→21:01)
[2019-09-07 07:01] LABS: Bedside Glucose 87 mg/dL (70-110)
[2019-09-07] MEDS: Na Biphos/Potassium Phosphate PACKET 1 PACKET PO ×2 (07:42→16:25)
[2019-09-07] MEDS: Polyethylene Glycol 3350 17 GM PACKET PO (07:42)
[2019-09-07] MEDS: Lisinopril 20 MG Tablet PO (07:43)
[2019-09-07] MEDS: Citalopram 20 MG Tablet PO (07:43)
[2019-09-07 07:44] VITALS: PULSE 77
[2019-09-07] MEDS: Metoprolol Tartrate 25 MG Tablet PO ×2 (07:44→21:00)
[2019-09-07] MEDS: Pantoprazole Sodium 20 MG Tablet PO (07:44)
[2019-09-07] MEDS: buPROPion (XL) 150 MG TABLET.XL PO (07:44)
[2019-09-07] MEDS: Allopurinol 100 MG Tablet 200 MG PO (07:44)
[2019-09-07] MEDS: APIXABAN 2.5 MG TABLET PO ×2 (07:45→20:59)
[2019-09-07] MEDS: Menthol/Lanolin/Calamine/Znox 113 GM Tube 1 APPLIC TOPICAL ×2 (07:51→21:08)
[2019-09-07 07:52] VITALS: BP 106/42; PULSE 77; RESP 18; TEMP 36.8; O2SAT 94
[2019-09-07 16:40] LABS: Bedside Glucose 69 mg/dL (70-110)
--- NOTE | 2019-09-07 16:52 | NURSING ---
1600 glucose 69, pt asymptomatic, 8oz OJ given. recheck glucose 74. meal tray delivered.
[2019-09-07 16:56] LABS: Bedside Glucose 74 mg/dL (70-110)
[2019-09-07] MEDS: NYSTATIN 500,000 UNIT/5 ML UDC 500000 UNIT PO ×2 (19:10→21:00)
[2019-09-07 20:00] VITALS: BP 100/40; PULSE 79; RESP 20; TEMP 36.7; O2SAT 96
[2019-09-07 21:00] VITALS: PULSE 79
[2019-09-07] MEDS: tiZANidine HCl 2 MG Tablet PO (21:01)
[2019-09-07 21:40] LABS: Bedside Glucose 99 mg/dL (70-110)
[2019-09-08] MEDS: oxyCODONE 5 MG Tablet 10 MG PO ×4 (03:21→21:31)
[2019-09-08] MEDS: Acetaminophen 500 MG Tablet 1000 MG PO ×3 (05:05→21:29)
[2019-09-08 07:07] VITALS: BP 108/49; PULSE 73; RESP 16; TEMP 36.6; O2SAT 96
[2019-09-08 07:11] LABS: Bedside Glucose 111 mg/dL (70-110)
[2019-09-08] MEDS: Lisinopril 20 MG Tablet PO (08:42)
[2019-09-08] MEDS: Na Biphos/Potassium Phosphate PACKET 1 PACKET PO ×3 (08:42→17:10)
[2019-09-08] MEDS: buPROPion (XL) 150 MG TABLET.XL PO (08:42)
[2019-09-08] MEDS: Aspirin 325 MG Tablet PO (08:42)
[2019-09-08] MEDS: Allopurinol 100 MG Tablet 200 MG PO (08:42)
[2019-09-08 08:43] VITALS: PULSE 77
[2019-09-08] MEDS: Polyethylene Glycol 3350 17 GM PACKET PO (08:43)
[2019-09-08] MEDS: Pantoprazole Sodium 20 MG Tablet PO (08:43)
[2019-09-08] MEDS: Metoprolol Tartrate 25 MG Tablet PO ×2 (08:43→21:30)
[2019-09-08] MEDS: Citalopram 20 MG Tablet PO (08:44)
[2019-09-08] MEDS: NYSTATIN 500,000 UNIT/5 ML UDC 500000 UNIT PO ×4 (08:46→21:30)
[2019-09-08] MEDS: APIXABAN 2.5 MG TABLET PO ×2 (08:47→21:30)
[2019-09-08] MEDS: Menthol/Lanolin/Calamine/Znox 113 GM Tube 1 APPLIC TOPICAL ×2 (08:48→21:31)
[2019-09-08 12:00] LABS: Bedside Glucose 91 mg/dL (70-110)
[2019-09-08 16:39] VITALS: O2SAT 95
[2019-09-08 17:16] LABS: Bedside Glucose 80 mg/dL (70-110)
[2019-09-08 19:38] VITALS: BP 110/60; PULSE 73; RESP 17; TEMP 36.8; O2SAT 97
[2019-09-08 20:56] LABS: Bedside Glucose 91 mg/dL (70-110)
[2019-09-08] MEDS: tiZANidine HCl 2 MG Tablet PO (21:29)
[2019-09-08 21:30] VITALS: BP 110/60; PULSE 73
[2019-09-09] MEDS: oxyCODONE 5 MG Tablet 10 MG PO ×4 (03:01→21:08)
[2019-09-09 06:45] LABS: Bedside Glucose 98 mg/dL (70-110)
[2019-09-09] MEDS: Acetaminophen 500 MG Tablet 1000 MG PO ×3 (06:55→21:08)
[2019-09-09 07:00] VITALS: BP 124/56; PULSE 66; RESP 16; TEMP 36.6; O2SAT 95
[2019-09-09] MEDS: Lisinopril 20 MG Tablet PO (08:49)
[2019-09-09] MEDS: NYSTATIN 500,000 UNIT/5 ML UDC 500000 UNIT PO ×4 (08:49→21:08)
[2019-09-09] MEDS: Pantoprazole Sodium 20 MG Tablet PO (08:49)
[2019-09-09] MEDS: Citalopram 20 MG Tablet PO (08:49)
[2019-09-09] MEDS: Aspirin 325 MG Tablet PO (08:49)
[2019-09-09] MEDS: Allopurinol 100 MG Tablet 200 MG PO (08:49)
[2019-09-09] MEDS: buPROPion (XL) 150 MG TABLET.XL PO (08:49)
[2019-09-09 08:50] VITALS: BP 124/56; PULSE 66
[2019-09-09] MEDS: Na Biphos/Potassium Phosphate PACKET 1 PACKET PO ×2 (08:50→12:14)
[2019-09-09] MEDS: APIXABAN 2.5 MG TABLET PO ×2 (08:50→21:09)
[2019-09-09] MEDS: Metoprolol Tartrate 25 MG Tablet PO ×2 (08:50→21:08)
[2019-09-09] MEDS: Polyethylene Glycol 3350 17 GM PACKET PO (08:53)
[2019-09-09] MEDS: Menthol/Lanolin/Calamine/Znox 113 GM Tube 1 APPLIC TOPICAL ×2 (08:53→21:09)
[2019-09-09 10:58] VITALS: O2SAT 93
[2019-09-09 11:11] LABS: Bedside Glucose 121 mg/dL (70-110)
[2019-09-09 16:46] LABS: Bedside Glucose 117 mg/dL (70-110)
--- NOTE | 2019-09-09 19:20 | NURSING ---
up and ambulated in halls multiple times today with standby assist
[2019-09-09 20:05] VITALS: BP 125/63; PULSE 69; RESP 18; TEMP 36.4; O2SAT 94
[2019-09-09 21:08] VITALS: BP 125/63; PULSE 69
[2019-09-09] MEDS: tiZANidine HCl 2 MG Tablet PO (21:09)
[2019-09-09 21:40] LABS: Bedside Glucose 103 mg/dL (70-110)
[2019-09-10] MEDS: oxyCODONE 5 MG Tablet 10 MG PO ×3 (03:41→17:09)
[2019-09-10] MEDS: Acetaminophen 500 MG Tablet 1000 MG PO ×3 (05:45→21:25)
[2019-09-10 06:30] LABS: Bedside Glucose 111 mg/dL (70-110)
--- NOTE | 2019-09-10 06:47 | PCM.PN.BLA ---
Progress Note Afebile VSS Maintaining appropriate oxygen saturation on RA Oral intake is good Discussed with nursing - no problems that need addressed Reviewed the PT/OT/ST notes Medication list reviewed. Pain is well controlled. BS's are well controlled on Victoza alone Pain is adequately controlled. She is sleeping good at night. Denies constipation Alert, NAD, seen in the therapy room lifting weights with the LUE Lungs - CTA, not tachypneic and no conversational dyspnea Heart - RRR, no gallop and no ectopy abd - soft, ND, NT, normal BS's in all quadrants no peripheral edema skin is warm and dry Impressions 1. Debility secondary to recent right reverse shoulder arthroplasty. Doing well in therapy. Pain is well controlled. She is sleeping well at night. 2. Diabetes mellitus type [id number] with no hypoglycemia. Continue therapy pulse ox on RA with ambulation prior to DC Recommend she follow up with Pulmonary post DC for a sleep study and PFT's weight loss advised Code Visit Inpatient E&M: 40030 Subs Hosp L1
[2019-09-10 07:01] VITALS: O2SAT 93
[2019-09-10 07:45] VITALS: BP 108/50; PULSE 69; RESP 17; TEMP 36.7; O2SAT 94
[2019-09-10] MEDS: Polyethylene Glycol 3350 17 GM PACKET PO (07:51)
[2019-09-10] MEDS: Pantoprazole Sodium 20 MG Tablet PO (07:52)
[2019-09-10] MEDS: Allopurinol 100 MG Tablet 200 MG PO (07:52)
[2019-09-10] MEDS: Aspirin 325 MG Tablet PO (07:52)
[2019-09-10] MEDS: Lisinopril 20 MG Tablet PO (07:52)
[2019-09-10 07:53] VITALS: PULSE 69
[2019-09-10] MEDS: APIXABAN 2.5 MG TABLET PO ×2 (07:53→21:25)
[2019-09-10] MEDS: buPROPion (XL) 150 MG TABLET.XL PO (07:53)
[2019-09-10] MEDS: Citalopram 20 MG Tablet PO (07:53)
[2019-09-10] MEDS: NYSTATIN 500,000 UNIT/5 ML UDC 500000 UNIT PO ×4 (07:53→21:24)
[2019-09-10] MEDS: Metoprolol Tartrate 25 MG Tablet PO ×2 (07:53→21:24)
[2019-09-10] MEDS: Menthol/Lanolin/Calamine/Znox 113 GM Tube 1 APPLIC TOPICAL ×2 (07:54→21:25)
[2019-09-10 11:21] LABS: Bedside Glucose 104 mg/dL (70-110)
[2019-09-10 17:31] LABS: Bedside Glucose 82 mg/dL (70-110)
[2019-09-10 19:26] VITALS: BP 116/60; PULSE 72; RESP 17; TEMP 36.6; O2SAT 94
[2019-09-10 21:24] VITALS: BP 115/60; PULSE 72
[2019-09-10] MEDS: tiZANidine HCl 2 MG Tablet PO (21:27)
[2019-09-10 21:50] LABS: Bedside Glucose 101 mg/dL (70-110)
[2019-09-10 22:00] VITALS: RESP 17; O2SAT 94
[2019-09-11] MEDS: Acetaminophen 500 MG Tablet 1000 MG PO ×3 (05:42→22:13)
[2019-09-11 06:46] LABS: Bedside Glucose 108 mg/dL (70-110)
[2019-09-11 07:46] VITALS: BP 113/47; PULSE 69; RESP 18; TEMP 36.8; O2SAT 97
[2019-09-11] MEDS: Citalopram 20 MG Tablet PO (07:51)
[2019-09-11] MEDS: Aspirin 325 MG Tablet PO (07:51)
[2019-09-11] MEDS: Allopurinol 100 MG Tablet 200 MG PO (07:51)
[2019-09-11] MEDS: buPROPion (XL) 150 MG TABLET.XL PO (07:51)
[2019-09-11] MEDS: NYSTATIN 500,000 UNIT/5 ML UDC 500000 UNIT PO ×4 (07:51→22:12)
[2019-09-11] MEDS: Polyethylene Glycol 3350 17 GM PACKET PO (07:52)
[2019-09-11] MEDS: APIXABAN 2.5 MG TABLET PO ×2 (07:52→22:12)
[2019-09-11] MEDS: Pantoprazole Sodium 20 MG Tablet PO (07:52)
[2019-09-11] MEDS: oxyCODONE 5 MG Tablet 10 MG PO ×3 (08:02→22:18)
[2019-09-11 10:02] VITALS: BP 109/72; PULSE 79
[2019-09-11] MEDS: Lisinopril 20 MG Tablet PO (10:02)
[2019-09-11] MEDS: Metoprolol Tartrate 25 MG Tablet PO ×2 (10:02→22:12)
[2019-09-11] MEDS: Menthol/Lanolin/Calamine/Znox 113 GM Tube 1 APPLIC TOPICAL ×2 (10:03→22:15)
[2019-09-11 11:55] LABS: Bedside Glucose 88 mg/dL (70-110)
--- NOTE | 2019-09-11 12:57 | NURSING ---
pt transported to TCU for hair appointment via wheelchair at this time
[2019-09-11 16:45] LABS: Bedside Glucose 75 mg/dL (70-110)
--- NOTE | 2019-09-11 16:53 | NURSING ---
discussed with Dr Luque and Soraya, pt has permission to leave for family outing on 09/12 for the afternoon. voluntary EVA for non-medical reasons signed.
[2019-09-11 19:43] VITALS: BP 123/60; PULSE 75; RESP 19; TEMP 36.5; O2SAT 96
[2019-09-11 22:00] VITALS: PULSE 75; RESP 18; O2SAT 96
[2019-09-11 22:12] VITALS: BP 123/60; PULSE 75
[2019-09-11] MEDS: tiZANidine HCl 2 MG Tablet PO (22:13)
--- NOTE | 2019-09-11 22:44 | NURSING ---
BS check at 22:35 was 91 but did not register on machine upon docking.
[2019-09-11 22:46] LABS: Bedside Glucose 91 mg/dL (70-110)
[2019-09-12] MEDS: oxyCODONE 5 MG Tablet 10 MG PO ×3 (05:49→20:11)
[2019-09-12] MEDS: Acetaminophen 500 MG Tablet 1000 MG PO ×2 (05:49→19:32)
[2019-09-12 07:05] LABS: Bedside Glucose 96 mg/dL (70-110)
[2019-09-12 08:25] VITALS: BP 109/55; PULSE 64
[2019-09-12] MEDS: APIXABAN 2.5 MG TABLET PO ×2 (08:25→20:11)
[2019-09-12] MEDS: Pantoprazole Sodium 20 MG Tablet PO (08:25)
[2019-09-12] MEDS: Aspirin 325 MG Tablet PO (08:25)
[2019-09-12] MEDS: Allopurinol 100 MG Tablet 200 MG PO (08:25)
[2019-09-12] MEDS: Metoprolol Tartrate 25 MG Tablet PO ×2 (08:25→20:11)
[2019-09-12] MEDS: NYSTATIN 500,000 UNIT/5 ML UDC 500000 UNIT PO ×2 (08:25→20:11)
[2019-09-12] MEDS: Lisinopril 20 MG Tablet PO (08:25)
[2019-09-12] MEDS: buPROPion (XL) 150 MG TABLET.XL PO (08:26)
[2019-09-12] MEDS: Citalopram 20 MG Tablet PO (08:26)
[2019-09-12] MEDS: Menthol/Lanolin/Calamine/Znox 113 GM Tube 1 APPLIC TOPICAL ×2 (08:31→20:14)
[2019-09-12 08:54] VITALS: BP 109/55; PULSE 64; RESP 18; TEMP 36.6; O2SAT 96
--- NOTE | 2019-09-12 11:15 | NURSING ---
left the unit for EVA
--- NOTE | 2019-09-12 18:11 | PCM.PN.BLA ---
Progress Note Afebrile Vital signs stable Maintaining appropriate oxygen saturation on room air Blood sugar record was reviewed and the blood sugars are under excellent control with no hypoglycemia but with a BS on 09/11 at 5 PM of 75. HGBA1C is only 6 at admission which is maybe a little too good and puts her at risk for hypoglycemia.....she is only taking Victoza. she is out of the hospital on a pass today. Impressions 1. DM II - blood sugars are getting too low. Will decrease the Victoza to 1.2 mg daily 2. debility due to recent R reverse shoulder arthroplasty at the [facility] - progressing well with therapy Code Visit Inpatient E&M: 58015 Subs Hosp L1
[2019-09-12] MEDS: tiZANidine HCl 2 MG Tablet PO (19:32)
[2019-09-12 20:11] VITALS: BP 108/53; PULSE 72
[2019-09-12 20:46] VITALS: BP 108/53; PULSE 72; RESP 18; TEMP 36.8; O2SAT 97
[2019-09-12 20:51] LABS: Bedside Glucose 95 mg/dL (70-110)
[2019-09-13] MEDS: Acetaminophen 500 MG Tablet 1000 MG PO ×3 (05:45→21:47)
[2019-09-13] MEDS: oxyCODONE 5 MG Tablet 10 MG PO ×4 (05:50→22:33)
[2019-09-13 06:47] VITALS: O2SAT 94
--- NOTE | 2019-09-13 06:48 | CPS ---
O2 bleed in for CPAP at night
[2019-09-13 07:05] LABS: Bedside Glucose 97 mg/dL (70-110)
[2019-09-13 08:11] VITALS: BP 93/57; PULSE 66; RESP 18; TEMP 36.6; O2SAT 94
[2019-09-13] MEDS: buPROPion (XL) 150 MG TABLET.XL PO (08:19)
[2019-09-13] MEDS: Polyethylene Glycol 3350 17 GM PACKET PO (08:19)
[2019-09-13] MEDS: Aspirin 325 MG Tablet PO (08:20)
[2019-09-13] MEDS: Pantoprazole Sodium 20 MG Tablet PO (08:20)
[2019-09-13] MEDS: Citalopram 20 MG Tablet PO (08:20)
[2019-09-13] MEDS: NYSTATIN 500,000 UNIT/5 ML UDC 500000 UNIT PO ×3 (08:20→21:47)
[2019-09-13] MEDS: APIXABAN 2.5 MG TABLET PO ×2 (08:20→21:47)
[2019-09-13] MEDS: Allopurinol 100 MG Tablet 200 MG PO (08:20)
[2019-09-13] MEDS: Menthol/Lanolin/Calamine/Znox 113 GM Tube 1 APPLIC TOPICAL ×2 (08:28→21:48)
[2019-09-13 10:18] VITALS: BP 121/59; PULSE 70
[2019-09-13 10:19] VITALS: BP 121/59; PULSE 70
[2019-09-13] MEDS: Lisinopril 20 MG Tablet PO (10:19)
[2019-09-13] MEDS: Metoprolol Tartrate 25 MG Tablet PO ×2 (10:19→21:47)
--- NOTE | 2019-09-13 11:45 | CASEMGMT ---
Social Work IDT met with patient and for Team Meeting. Discussed patient's progress in therapy. Pt had EVA for [place] and did very well at home. Pt is supervised for edge of bed, walked on multiple surfaces 400 ft with cane, short distances no device as pt is staedy, completed 3 steps CGA. Pt is supervised for toileting and transfers, min assist for UE and LE ASL d/t precautions. is able to provide assistance until precautions are lifted. Pt's O2 sats are still dropping overnight and will need O2 bled into CPAP at home. Spoke with [employer] whom is able to provide new supplies to pt - to pick those up at [place]. [place] with [facility] [place] - per [place], pt requires sleep study prior to ordering of new O2. Sleep study scheduled for Sep 26. Provided updated O2 information to pt. Spoke with daughter with above information per pt request. Pt is ready to DC home 09/14 with outpatient PT at [facility]. Plan: DC home with [facility] PT and CPAP with O2. Katy Glaser, MOTION STUDY TECHNICIAN REAL ESTATE INSTRUCTOR
[2019-09-13 12:11] LABS: Bedside Glucose 106 mg/dL (70-110)
--- NOTE | 2019-09-13 12:37 | PCM.PN.BLA ---
Progress Note Seen on TEAM rounds. Her Yannick attended rounds. Afebile VSS Maintaining appropriate oxygen saturation on RA Oral intake is very good. Discussed with nursing - no problems that need addressed Reviewed the PT/OT/ST notes and heard their presentations on TEAM rounds. Medication list reviewed. Alert, NAD, seen in her room sitting in the recliner, NAD Lungs - CTA, not tachypneic and no conversational dyspnea Heart - RRR, no gallop and no ectopy abd - soft, ND, NT, normal BS's in all quadrants no peripheral edema skin is warm and dry, the incision is clean, dry and intact Impressions 1. Debility secondary to recent right reverse shoulder arthroplasty. Doing very well in physical therapy and plan on discharge earlier than expected. Will discharge in the a.m. 2. Diabetes mellitus type [id number] with no hypoglycemia 3. Obstructive sleep [id number] with pulmonary...... has a CPAP titration study scheduled Plan on DC tomorrow will have the international student advisor give info, meal plans to take home Ambulatory pulse ox on RA prior to DC Will need to document again low O2 at night with CPAP if not on oxygen. Dropped to 83% earlier in the admission on an overnight trending pulse ox. Plan on Follow up with pulmonary as an OP to have PFT's and a repeat sleep study for titration of the pressure. STROKE Vital Signs/Narrative: Vital Signs Pulse BP 09/13/19 10:19 70 121/59 H 09/13/19 10:18 70 121/59 H Code Visit Inpatient E&M: 97476 Subs Hosp L2
--- NOTE | 2019-09-13 14:40 | SLEEP ---
Spoke with patient at bedside - when this tech entered the room, patient was napping on CPAP wearing DreamWear Nasal Mask with excellent tolerance. We have a sooner empty bed Tuesday09/17/19 at 8p. She is agreeable to move up to this appointment, but is still hoping that we will get a cancellation/empty bed tomorrow 09/15 to allow her to be discharged directly to us for RETI study then home Tuesday morning. She is #1 waitlist priority should this occur. I will follow up with Dr. Luque for consideration to order RETI prior to outpatient follow up with Pulmonary Medicine and will tentatively schedule the patient for 09/17 8p visit.
[2019-09-13 17:05] LABS: Bedside Glucose 87 mg/dL (70-110)
[2019-09-13 21:43] VITALS: BP 116/68; PULSE 65; RESP 16; TEMP 36.8; O2SAT 92
[2019-09-13 21:47] VITALS: BP 116/68; PULSE 65
[2019-09-13] MEDS: tiZANidine HCl 2 MG Tablet PO (21:47)
[2019-09-13 22:40] LABS: Bedside Glucose 91 mg/dL (70-110)
[2019-09-14] MEDS: oxyCODONE 5 MG Tablet 10 MG PO ×2 (02:40→07:00)
[2019-09-14] MEDS: Acetaminophen 500 MG Tablet 1000 MG PO (06:38)
[2019-09-14 07:00] LABS: Bedside Glucose 88 mg/dL (70-110)
[2019-09-14 07:46] VITALS: BP 98/64; PULSE 65; RESP 18; TEMP 36.6; O2SAT 93
[2019-09-14] MEDS: Polyethylene Glycol 3350 17 GM PACKET PO (08:01)
[2019-09-14] MEDS: Allopurinol 100 MG Tablet 200 MG PO (08:08)
[2019-09-14] MEDS: NYSTATIN 500,000 UNIT/5 ML UDC 500000 UNIT PO (08:08)
[2019-09-14 08:09] VITALS: PULSE 65
[2019-09-14] MEDS: Metoprolol Tartrate 25 MG Tablet PO (08:09)
[2019-09-14] MEDS: Lisinopril 20 MG Tablet PO (08:09)
[2019-09-14] MEDS: Pantoprazole Sodium 20 MG Tablet PO (08:09)
[2019-09-14] MEDS: Citalopram 20 MG Tablet PO (08:09)
[2019-09-14] MEDS: Aspirin 325 MG Tablet PO (08:09)
[2019-09-14] MEDS: buPROPion (XL) 150 MG TABLET.XL PO (08:09)
[2019-09-14] MEDS: APIXABAN 2.5 MG TABLET PO (08:09)
[2019-09-14] MEDS: Menthol/Lanolin/Calamine/Znox 113 GM Tube 1 APPLIC TOPICAL (08:12)
--- NOTE | 2019-09-14 10:10 | DCINST_ITS ---
- Discharge Diagnoses Current Active Problems: Current Active and Chronic Problems (Last Reviewed 09/04/19 @ 16:11 by Olivia Luque DO) Morbid obesity (Chronic) Osteoarthritis (Chronic) S/p reverse total shoulder arthroplasty (Acute) 09/03/19 Physical debility (Acute) You will use the following diet at home:: Calorie/Carbohydrate Controlled (specify 1200, 1400, etc) - 1800 calorie low salt and low fat Your food should be the consistency of: Regular Your liquids should be the consistency of: Regular/Thin Discharge Activity: May not drive while taking narcotic pain medications., - - activity as tolerated May shower in (days): 1 Ice area for (Minutes): 20 - every 3-4 hours during the day Weight Bearing Status: Full weight bearing Lifting Restrictions: no lifting Keep extremity elevated above heart level: Right Arm Additional Activity Instructions:: I suggest you start walking everyday......this can be in the house if the weather is bad. Start with 10 minutes and increase as tolerated to 30 minutes a day. Take Yannick with you! Call your doctor if you observe: Fever of 101 or Higher, Coldness, Increased Pain, Numbness or Tingling, Change in Color, Inability to have a bowel movement, Shortness of breath, Dizziness, Fainting spells, Swelling in the ankles, Chest pain, Calf discomfort, Uncontrolled pain Instructions: Why Diets Don't Work, MyPlate Worksheet: 1,800 Calories Additional Instructions: 1. I stopped a few meds while you were in the rehab unit and changed the dose on others. Please follow the new medication list given to you at discharge. You have not received any Lasix in the rehab unit and your ankles look good and your lungs are clear......this is because you are wearing compression stockings and you are elevating your legs when sitting AND you are on a low salt diet. Do your best to stick with a 2 GM sodium diet.........salt causes your body to retain water which leads to swelling and shortness of breath and weight gain and then you need Lasix. 2. Your blood s ugars are GREAT!!!!! I have decreased the Victoza to 1.2 mg daily and the blood sugars are still GREAT!!!! You may be able to go down to 0.6 mg if you stick to the 1800 calorie diet! If you can gradually lose weight....even 4-5 lbs a month then you may be able to get off the Victoza! The dieticians' have a program for weight loss and they call it the [employer] Weight program. All you need to be s willie is a referral from Dr. Almanza. IT is a very good program and I have many patients who have been successful with weight loss on this program. 3. The oxygen when you walked is much better now....It was 86% the first day in the rehab you and now is always in the 90's. You may still need oxygen at night....the insurance company will not approve until the results of the sleep study are available. I think you will probably need a change in the pressure of the CPAP unit and with this you may not need oxygen. 4. Your blood pressures were low on the rehab unit and I decreased the dose of the Lisinopril to 10 mg daily.........if you continue to limit salt and lose weight the blood pressures may decreases further and you will have less need for BP pills. 5. You have done very well in the rehab program and you are much more alert and functional than at admission. Keep up the good work!!!! Check out the [employer] for paleo pasta and they also have the mushroom pasta at [facility].....it comes in a bag and is moist inside.....make sure to rinse it before you heat it up! 30 calories per bag AND it tastes like past and has a simialr consistency. It was a pleasure to meet you Paula.......Have a HAPPY HEALTHY New year. Pending Tests on Discharge: none Allergies/Adverse Reactions: Allergies naproxen [From Naprosyn] Adverse Reaction (Severe, Verified 07/16/19 15:43) INTERNAL BLEEDING prednisone Adverse Reaction (Severe, Verified 07/16/19 15:43) COMBINATION WITH NAPROXEN CAUSED INTERNAL BLEEDING exenatide [From Byetta] Adverse Reaction (Intermediate, Verified 07/16/19 15:43) Unknown ezetimibe [From Zetia] Adverse Reaction (Intermediate, Verified 07/16/19 15:43) Unknown fluticasone [From Flonase] Adverse Reaction (Intermediate, Verified 07/16/19 15:43) Unknown amoxicillin [From Augmentin] Adverse Reaction (Unknown, Verified 07/16/19 15:43) Unknown clavulanic acid [From Augmentin] Adverse Reaction (Unknown, Verified 07/16/19 15:43) Unknown clorazepate dipotassium [From Tranxene T-Tab] Adverse Reaction (Unknown, Verified 07/16/19 15:43) Unknown indomethacin [From Indocin] Adverse Reaction (Unknown, Verified 07/16/19 15:43) Unknown ketoprofen [From Oruvail] Adverse Reaction (Unknown, Verified 07/16/19 15:43) Unknown nizatidine [From Axid] Adverse Reaction (Unknown, Verified 07/16/19 15:43) Unknown ranitidine [From Zantac] Adverse Reaction (Unknown, Verified 07/16/19 15:43) Unknown rosuvastatin [From Crestor] Adverse Reaction (Unknown, Verified 07/16/19 15:43) Unknown sertraline [From Zoloft] Adverse Reaction (Unknown, Verified 07/16/19 15:43) Unknown sulfamethoxazole [From Septra] Adverse Reaction (Unknown, Verified 07/16/19 15:43) Unknown trimethoprim [From Septra] Adverse Reaction (Unknown, Verified 07/16/19 15:43) Unknown NSAIDS (Non-Steroidal Anti-Inflamma Adverse Reaction (Verified 07/16/19 15:43) Other CKD STAGE4 naldecon Adverse Reaction (Unknown, Uncoded 07/16/19 15:43) Unknown Medications to take at Discharge allopurinol 100 mg tablet 100 mg PO BID tab 03/15/18 Cholecalciferol (Vitamin D3) [Vitamin D3] 5,000 unit PO DAILY 04/07/18 Clopidogrel Bisulfate [Clopidogrel] 75 mg PO DAILY 09/04/19 colestipol 1 gram tablet 2 g PO BID #360 tab 09/05/19 Acetaminophen [Tylenol] 1,000 mg PO Q8H tab 09/14/19 Citalopram [Celexa] 20 mg PO DAILY tab 09/14/19 Liraglutide [Victoza] 1.2 mg SQ DAILY 30 Days #5 pen.injctr 09/14/19 Lisinopril [Prinivil] 10 mg PO DAILY #30 tab 09/14/19 Metoprolol Tartrate [Lopressor (beta geovanna)] 25 mg PO BID tab 09/14/19 Oxycodone [Oxyir] 10 mg PO Q4H PRN PRN 7 Days #56 tab 09/14/19 Polyethylene Glycol 3350 [Miralax] 17 gm PO DAILY #30 packet 09/14/19 Tizanidine HCl [Zanaflex] 2 mg PO QHS #30 tab 09/14/19 buPROPion XL [Wellbutrin Xl] 150 mg PO DAILY tablet.xl 09/14/19 The following prescriptions were given: Polyethylene Glycol 3350 [Miralax] 17 gm PO DAILY #30 packet Transmission Status: Pending to [id number] Oxycodone [Oxyir] 10 mg PO Q4H PRN PRN 7 Days #56 tab PRN Reason: Pain Score 6-10/10 Transmission Status: Received by [id number] Lisinopril [Prinivil] 10 mg PO DAILY #30 tab Transmission Status: Pending to [id number] Liraglutide [Victoza] 1.2 mg SQ DAILY 30 Days #5 pen.injctr Transmission Status: Pending to [id number] Tizanidine HCl [Zanaflex] 2 mg PO QHS #30 tab Transmission Status: Pending to [id number] Primary Care Physician: Sachin Almanza DO [Primary Care Provider] - Please follow up with your Primary Care Physician in: 1-2 weeks Test Results: Test results from this visit will be discussed in further detail at your follow- up appointment, if applicable. Please Follow Up With: Dr Fred Alvarez Please Follow Up With: Sleep study Proposed Discharge Date: 09/14/19
[2019-09-14 10:29] VITALS: BP 98/64; PULSE 65; RESP 18; TEMP 36.6; O2SAT 93
--- NOTE | 2019-09-14 10:30 | DS.PCM_ITS ---
Discharge Date and Diagnosis Date of Admission: 09/04/19 Date of Discharge: 09/14/19 - Primary Discharge Diagnosis Active and Suspected Problems (Last Reviewed 09/04/19 @ 16:11 by Olivia Luque DO) S/p reverse total shoulder arthroplasty (Acute) 09/03/19 Physical debility due to pain and restrictions due to the reverse shoulder repair (Acute) Hypoglycemia Hypoxia at night requiring oxygen Hypophosphatemia - Secondary Discharge Diagnosis Chronic Problems (Last Reviewed 09/04/19 @ 16:11 by Olivia Luque DO) Morbid obesity (Chronic) Osteoarthritis (Chronic) Pure hypercholesterolemia (Chronic) - uncontrolled Essential hypertension (Chronic) CKD (chronic kidney disease) stage 3, GFR 30-59 ml/min (Chronic) GERD (gastroesophageal reflux disease) (Chronic) Sleep apnea (Chronic) Presence of stent in coronary artery (Chronic ~03/28/18) PTCA/ELFEGO to the prox LAD in 03/28/18 Atherosclerotic heart disease of [place] coronary artery without angina pectoris (Chronic) S/P PTCA/ELFEGO to prox LAD in March 2018; Type 2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(Chronic) Hypertension (Chronic) Diet-controlled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(Chronic) Gout (Chronic) Hospital Course and Treatment Imaging Results: Laboratory Tests 09/14/19 09/13/19 09/13/19 Range/Units 06:41 22:36 16:49 WBC (4.4-11.0) K/mm3 RBC (4.2-5.4) M/mm3 Hgb (12.0-15.0) g/dL Hct (37-47) % MCV (81-99) fL MCH (27.0-32.0) pg MCHC (32-36) g/dL RDW Std Deviation (35.1-43.9) fl RDW Coeff of Kayleen (11.6-14.6) % Plt Count (150-450) K/mm3 MPV (6.2-12.0) fl Sodium (136-145) mmol/L Potassium (3.5-5.1) mmol/L Chloride (98-107) mmol/L Carbon Dioxide (21.0-32.0) mmol/L Anion Gap (5-15) BUN (7-18) mg/dL Creatinine (0.55-1.02) mg/dL Estim Creat Clear Calc ml/min Est GFR (MDRD) Af Amer (>60) mL/min Est GFR (MDRD) Non-Af (>60) mL/min BUN/Creatinine Ratio (10-20) RATIO Glucose (74-106) mg/dL Hemoglobin A1c (4.2-6.3) % Calcium (8.5-10.1) mg/dL Phosphorus (2.5-4.9) mg/dL Magnesium (1.6-2.6) mg/dL Total Bilirubin (0.20-1.00) mg/dL AST (15-37) U/L ALT (13-56) U/L Alkaline Phosphatase (45-117) U/L Total Protein (6.4-8.2) g/dL Albumin (3.2-5.0) g/dL Globulin (2.2-4.2) g/dL Albumin/Globulin Ratio (0.9-2.4) RATIO POC Glucose 88 91 87 (70-110) mg/dL 09/13/19 09/13/19 09/12/19 Range/Units 12:02 06:26 20:42 WBC (4.4-11.0) K/mm3 RBC (4.2-5.4) M/mm3 Hgb (12.0-15.0) g/dL Hct (37-47) % MCV (81-99) fL MCH (27.0-32.0) pg MCHC (32-36) g/dL RDW Std Deviation (35.1-43.9) fl RDW Coeff of Kayleen (11.6-14.6) % Plt Count (150-450) K/mm3 MPV (6.2-12.0) fl Sodium (136-145) mmol/L Potassium (3.5-5.1) mmol/L Chloride (98-107) mmol/L Carbon Dioxide (21.0-32.0) mmol/L Anion Gap (5-15) BUN (7-18) mg/dL Creatinine (0.55-1.02) mg/dL Estim Creat Clear Calc ml/min Est GFR (MDRD) Af Amer (>60) mL/min Est GFR (MDRD) Non-Af (>60) mL/min BUN/Creatinine Ratio (10-20) RATIO Glucose (74-106) mg/dL Hemoglobin A1c (4.2-6.3) % Calcium (8.5-10.1) mg/dL Phosphorus (2.5-4.9) mg/dL Magnesium (1.6-2.6) mg/dL Total Bilirubin (0.20-1.00) mg/dL AST (15-37) U/L ALT (13-56) U/L Alkaline Phosphatase (45-117) U/L Total Protein (6.4-8.2) g/dL Albumin (3.2-5.0) g/dL Globulin (2.2-4.2) g/dL Albumin/Globulin Ratio (0.9-2.4) RATIO POC Glucose 106 97 95 (70-110) mg/dL 09/12/19 09/11/19 09/11/19 Range/Units 06:56 22:32 16:33 WBC (4.4-11.0) K/mm3 RBC (4.2-5.4) M/mm3 Hgb (12.0-15.0) g/dL Hct (37-47) % MCV (81-99) fL MCH (27.0-32.0) pg MCHC (32-36) g/dL RDW Std Deviation (35.1-43.9) fl RDW Coeff of Kayleen (11.6-14.6) % Plt Count (150-450) K/mm3 MPV (6.2-12.0) fl Sodium (136-145) mmol/L Potassium (3.5-5.1) mmol/L Chloride (98-107) mmol/L Carbon Dioxide (21.0-32.0) mmol/L Anion Gap (5-15) BUN (7-18) mg/dL Creatinine (0.55-1.02) mg/dL Estim Creat Clear Calc ml/min Est GFR (MDRD) Af Amer (>60) mL/min Est GFR (MDRD) Non-Af (>60) mL/min BUN/Creatinine Ratio (10-20) RATIO Glucose (74-106) mg/dL Hemoglobin A1c (4.2-6.3) % Calcium (8.5-10.1) mg/dL Phosphorus (2.5-4.9) mg/dL Magnesium (1.6-2.6) mg/dL Total Bilirubin (0.20-1.00) mg/dL AST (15-37) U/L ALT (13-56) U/L Alkaline Phosphatase (45-117) U/L Total Protein (6.4-8.2) g/dL Albumin (3.2-5.0) g/dL Globulin (2.2-4.2) g/dL Albumin/Globulin Ratio (0.9-2.4) RATIO POC Glucose 96 91 75 (70-110) mg/dL 09/11/19 09/11/19 09/10/19 Range/Units 11:49 06:09 21:36 WBC (4.4-11.0) K/mm3 RBC (4.2-5.4) M/mm3 Hgb (12.0-15.0) g/dL Hct (37-47) % MCV (81-99) fL MCH (27.0-32.0) pg MCHC (32-36) g/dL RDW Std Deviation (35.1-43.9) fl RDW Coeff of Kayleen (11.6-14.6) % Plt Count (150-450) K/mm3 MPV (6.2-12.0) fl Sodium (136-145) mmol/L Potassium (3.5-5.1) mmol/L Chloride (98-107) mmol/L Carbon Dioxide (21.0-32.0) mmol/L Anion Gap (5-15) BUN (7-18) mg/dL Creatinine (0.55-1.02) mg/dL Estim Creat Clear Calc ml/min Est GFR (MDRD) Af Amer (>60) mL/min Est GFR (MDRD) Non-Af (>60) mL/min BUN/Creatinine Ratio (10-20) RATIO Glucose (74-106) mg/dL Hemoglobin A1c (4.2-6.3) % Calcium (8.5-10.1) mg/dL Phosphorus (2.5-4.9) mg/dL Magnesium (1.6-2.6) mg/dL Total Bilirubin (0.20-1.00) mg/dL AST (15-37) U/L ALT (13-56) U/L Alkaline Phosphatase (45-117) U/L Total Protein (6.4-8.2) g/dL Albumin (3.2-5.0) g/dL Globulin (2.2-4.2) g/dL Albumin/Globulin Ratio (0.9-2.4) RATIO POC Glucose 88 108 101 (70-110) mg/dL 09/10/19 09/10/19 09/10/19 Range/Units 17:09 11:09 06:06 WBC (4.4-11.0) K/mm3 RBC (4.2-5.4) M/mm3 Hgb (12.0-15.0) g/dL Hct (37-47) % MCV (81-99) fL MCH (27.0-32.0) pg MCHC (32-36) g/dL RDW Std Deviation (35.1-43.9) fl RDW Coeff of Kayleen (11.6-14.6) % Plt Count (150-450) K/mm3 MPV (6.2-12.0) fl Sodium (136-145) mmol/L Potassium (3.5-5.1) mmol/L Chloride (98-107) mmol/L Carbon Dioxide (21.0-32.0) mmol/L Anion Gap (5-15) BUN (7-18) mg/dL Creatinine (0.55-1.02) mg/dL Estim Creat Clear Calc ml/min Est GFR (MDRD) Af Amer (>60) mL/min Est GFR (MDRD) Non-Af (>60) mL/min BUN/Creatinine Ratio (10-20) RATIO Glucose (74-106) mg/dL Hemoglobin A1c (4.2-6.3) % Calcium (8.5-10.1) mg/dL Phosphorus (2.5-4.9) mg/dL Magnesium (1.6-2.6) mg/dL Total Bilirubin (0.20-1.00) mg/dL AST (15-37) U/L ALT (13-56) U/L Alkaline Phosphatase (45-117) U/L Total Protein (6.4-8.2) g/dL Albumin (3.2-5.0) g/dL Globulin (2.2-4.2) g/dL Albumin/Globulin Ratio (0.9-2.4) RATIO POC Glucose 82 104 111 H (70-110) mg/dL 09/09/19 09/09/19 09/09/19 Range/Units 20:49 16:31 11:05 WBC (4.4-11.0) K/mm3 RBC (4.2-5.4) M/mm3 Hgb (12.0-15.0) g/dL Hct (37-47) % MCV (81-99) fL MCH (27.0-32.0) pg MCHC (32-36) g/dL RDW Std Deviation (35.1-43.9) fl RDW Coeff of Kayleen (11.6-14.6) % Plt Count (150-450) K/mm3 MPV (6.2-12.0) fl Sodium (136-145) mmol/L Potassium (3.5-5.1) mmol/L Chloride (98-107) mmol/L Carbon Dioxide (21.0-32.0) mmol/L Anion Gap (5-15) BUN (7-18) mg/dL Creatinine (0.55-1.02) mg/dL Estim Creat Clear Calc ml/min Est GFR (MDRD) Af Amer (>60) mL/min Est GFR (MDRD) Non-Af (>60) mL/min BUN/Creatinine Ratio (10-20) RATIO Glucose (74-106) mg/dL Hemoglobin A1c (4.2-6.3) % Calcium (8.5-10.1) mg/dL Phosphorus (2.5-4.9) mg/dL Magnesium (1.6-2.6) mg/dL Total Bilirubin (0.20-1.00) mg/dL AST (15-37) U/L ALT (13-56) U/L Alkaline Phosphatase (45-117) U/L Total Protein (6.4-8.2) g/dL Albumin (3.2-5.0) g/dL Globulin (2.2-4.2) g/dL Albumin/Globulin Ratio (0.9-2.4) RATIO POC Glucose 103 117 H 121 H (70-110) mg/dL 09/09/19 09/08/19 09/08/19 Range/Units 06:15 20:49 17:11 WBC (4.4-11.0) K/mm3 RBC (4.2-5.4) M/mm3 Hgb (12.0-15.0) g/dL Hct (37-47) % MCV (81-99) fL MCH (27.0-32.0) pg MCHC (32-36) g/dL RDW Std Deviation (35.1-43.9) fl RDW Coeff of Kayleen (11.6-14.6) % Plt Count (150-450) K/mm3 MPV (6.2-12.0) fl Sodium (136-145) mmol/L Potassium (3.5-5.1) mmol/L Chloride (98-107) mmol/L Carbon Dioxide (21.0-32.0) mmol/L Anion Gap (5-15) BUN (7-18) mg/dL Creatinine (0.55-1.02) mg/dL Estim Creat Clear Calc ml/min Est GFR (MDRD) Af Amer (>60) mL/min Est GFR (MDRD) Non-Af (>60) mL/min BUN/Creatinine Ratio (10-20) RATIO Glucose (74-106) mg/dL Hemoglobin A1c (4.2-6.3) % Calcium (8.5-10.1) mg/dL Phosphorus (2.5-4.9) mg/dL Magnesium (1.6-2.6) mg/dL Total Bilirubin (0.20-1.00) mg/dL AST (15-37) U/L ALT (13-56) U/L Alkaline Phosphatase (45-117) U/L Total Protein (6.4-8.2) g/dL Albumin (3.2-5.0) g/dL Globulin (2.2-4.2) g/dL Albumin/Globulin Ratio (0.9-2.4) RATIO POC Glucose 98 91 80 (70-110) mg/dL 09/08/19 09/08/19 09/07/19 Range/Units 11:56 06:56 21:24 WBC (4.4-11.0) K/mm3 RBC (4.2-5.4) M/mm3 Hgb (12.0-15.0) g/dL Hct (37-47) % MCV (81-99) fL MCH (27.0-32.0) pg MCHC (32-36) g/dL RDW Std Deviation (35.1-43.9) fl RDW Coeff of Kayleen (11.6-14.6) % Plt Count (150-450) K/mm3 MPV (6.2-12.0) fl Sodium (136-145) mmol/L Potassium (3.5-5.1) mmol/L Chloride (98-107) mmol/L Carbon Dioxide (21.0-32.0) mmol/L Anion Gap (5-15) BUN (7-18) mg/dL Creatinine (0.55-1.02) mg/dL Estim Creat Clear Calc ml/min Est GFR (MDRD) Af Amer (>60) mL/min Est GFR (MDRD) Non-Af (>60) mL/min BUN/Creatinine Ratio (10-20) RATIO Glucose (74-106) mg/dL Hemoglobin A1c (4.2-6.3) % Calcium (8.5-10.1) mg/dL Phosphorus (2.5-4.9) mg/dL Magnesium (1.6-2.6) mg/dL Total Bilirubin (0.20-1.00) mg/dL AST (15-37) U/L ALT (13-56) U/L Alkaline Phosphatase (45-117) U/L Total Protein (6.4-8.2) g/dL Albumin (3.2-5.0) g/dL Globulin (2.2-4.2) g/dL Albumin/Globulin Ratio (0.9-2.4) RATIO POC Glucose 91 111 H 99 (70-110) mg/dL 09/07/19 09/07/19 09/07/19 Range/Units 16:50 16:22 06:56 WBC (4.4-11.0) K/mm3 RBC (4.2-5.4) M/mm3 Hgb (12.0-15.0) g/dL Hct (37-47) % MCV (81-99) fL MCH (27.0-32.0) pg MCHC (32-36) g/dL RDW Std Deviation (35.1-43.9) fl RDW Coeff of Kayleen (11.6-14.6) % Plt Count (150-450) K/mm3 MPV (6.2-12.0) fl Sodium (136-145) mmol/L Potassium (3.5-5.1) mmol/L Chloride (98-107) mmol/L Carbon Dioxide (21.0-32.0) mmol/L Anion Gap (5-15) BUN (7-18) mg/dL Creatinine (0.55-1.02) mg/dL Estim Creat Clear Calc ml/min Est GFR (MDRD) Af Amer (>60) mL/min Est GFR (MDRD) Non-Af (>60) mL/min BUN/Creatinine Ratio (10-20) RATIO Glucose (74-106) mg/dL Hemoglobin A1c (4.2-6.3) % Calcium (8.5-10.1) mg/dL Phosphorus (2.5-4.9) mg/dL Magnesium (1.6-2.6) mg/dL Total Bilirubin (0.20-1.00) mg/dL AST (15-37) U/L ALT (13-56) U/L Alkaline Phosphatase (45-117) U/L Total Protein (6.4-8.2) g/dL Albumin (3.2-5.0) g/dL Globulin (2.2-4.2) g/dL Albumin/Globulin Ratio (0.9-2.4) RATIO POC Glucose 74 69 L 87 (70-110) mg/dL 09/06/19 09/06/19 09/06/19 Range/Units 23:13 17:27 11:27 WBC (4.4-11.0) K/mm3 RBC (4.2-5.4) M/mm3 Hgb (12.0-15.0) g/dL Hct (37-47) % MCV (81-99) fL MCH (27.0-32.0) pg MCHC (32-36) g/dL RDW Std Deviation (35.1-43.9) fl RDW Coeff of Kayleen (11.6-14.6) % Plt Count (150-450) K/mm3 MPV (6.2-12.0) fl Sodium (136-145) mmol/L Potassium (3.5-5.1) mmol/L Chloride (98-107) mmol/L Carbon Dioxide (21.0-32.0) mmol/L Anion Gap (5-15) BUN (7-18) mg/dL Creatinine (0.55-1.02) mg/dL Estim Creat Clear Calc ml/min Est GFR (MDRD) Af Amer (>60) mL/min Est GFR (MDRD) Non-Af (>60) mL/min BUN/Creatinine Ratio (10-20) RATIO Glucose (74-106) mg/dL Hemoglobin A1c (4.2-6.3) % Calcium (8.5-10.1) mg/dL Phosphorus (2.5-4.9) mg/dL Magnesium (1.6-2.6) mg/dL Total Bilirubin (0.20-1.00) mg/dL AST (15-37) U/L ALT (13-56) U/L Alkaline Phosphatase (45-117) U/L Total Protein (6.4-8.2) g/dL Albumin (3.2-5.0) g/dL Globulin (2.2-4.2) g/dL Albumin/Globulin Ratio (0.9-2.4) RATIO POC Glucose 80 63 L 76 (70-110) mg/dL 09/06/19 09/05/19 09/05/19 Range/Units 07:39 21:35 16:40 WBC (4.4-11.0) K/mm3 RBC (4.2-5.4) M/mm3 Hgb (12.0-15.0) g/dL Hct (37-47) % MCV (81-99) fL MCH (27.0-32.0) pg MCHC (32-36) g/dL RDW Std Deviation (35.1-43.9) fl RDW Coeff of Kalyeen (11.6-14.6) % Plt Count (150-450) K/mm3 MPV (6.2-12.0) fl Sodium (136-145) mmol/L Potassium (3.5-5.1) mmol/L Chloride (98-107) mmol/L Carbon Dioxide (21.0-32.0) mmol/L Anion Gap (5-15) BUN (7-18) mg/dL Creatinine (0.55-1.02) mg/dL Estim Creat Clear Calc ml/min Est GFR (MDRD) Af Amer (>60) mL/min Est GFR (MDRD) Non-Af (>60) mL/min BUN/Creatinine Ratio (10-20) RATIO Glucose (74-106) mg/dL Hemoglobin A1c (4.2-6.3) % Calcium (8.5-10.1) mg/dL Phosphorus (2.5-4.9) mg/dL Magnesium (1.6-2.6) mg/dL Total Bilirubin (0.20-1.00) mg/dL AST (15-37) U/L ALT (13-56) U/L Alkaline Phosphatase (45-117) U/L Total Protein (6.4-8.2) g/dL Albumin (3.2-5.0) g/dL Globulin (2.2-4.2) g/dL Albumin/Globulin Ratio (0.9-2.4) RATIO POC Glucose 106 104 77 (70-110) mg/dL 09/05/19 09/05/19 09/05/19 Range/Units 12:13 06:23 05:46 WBC (4.4-11.0) K/mm3 RBC (4.2-5.4) M/mm3 Hgb (12.0-15.0) g/dL Hct (37-47) % MCV (81-99) fL MCH (27.0-32.0) pg MCHC (32-36) g/dL RDW Std Deviation (35.1-43.9) fl RDW Coeff of Kayleen (11.6-14.6) % Plt Count (150-450) K/mm3 MPV (6.2-12.0) fl Sodium (136-145) mmol/L Potassium (3.5-5.1) mmol/L Chloride (98-107) mmol/L Carbon Dioxide (21.0-32.0) mmol/L Anion Gap (5-15) BUN (7-18) mg/dL Creatinine (0.55-1.02) mg/dL Estim Creat Clear Calc ml/min Est GFR (MDRD) Af Amer (>60) mL/min Est GFR (MDRD) Non-Af (>60) mL/min BUN/Creatinine Ratio (10-20) RATIO Glucose (74-106) mg/dL Hemoglobin A1c 6.0 (4.2-6.3) % Calcium (8.5-10.1) mg/dL Phosphorus (2.5-4.9) mg/dL Magnesium (1.6-2.6) mg/dL Total Bilirubin (0.20-1.00) mg/dL AST (15-37) U/L ALT (13-56) U/L Alkaline Phosphatase (45-117) U/L Total Protein (6.4-8.2) g/dL Albumin (3.2-5.0) g/dL Globulin (2.2-4.2) g/dL Albumin/Globulin Ratio (0.9-2.4) RATIO POC Glucose 78 118 H (70-110) mg/dL 09/05/19 09/05/19 09/04/19 Range/Units 05:46 05:46 22:00 WBC 11.1 H (4.4-11.0) K/mm3 RBC 3.65 L (4.2-5.4) M/mm3 Hgb 11.6 L (12.0-15.0) g/dL Hct 35.1 L (37-47) % MCV 96.2 (81-99) fL MCH 31.8 (27.0-32.0) pg MCHC 33.0 (32-36) g/dL RDW Std Deviation 48.1 H (35.1-43.9) fl RDW Coeff of Kayleen 13.6 (11.6-14.6) % Plt Count 198 (150-450) K/mm3 MPV 9.4 (6.2-12.0) fl Sodium 136 (136-145) mmol/L Potassium 4.3 (3.5-5.1) mmol/L Chloride 108 H (98-107) mmol/L Carbon Dioxide 24.0 (21.0-32.0) mmol/L Anion Gap 4 L (5-15) BUN 25 H (7-18) mg/dL Creatinine 1.25 H (0.55-1.02) mg/dL Estim Creat Clear Calc 33.59 ml/min Est GFR (MDRD) Af Amer 55 L (>60) mL/min Est GFR (MDRD) Non-Af 45 L (>60) mL/min BUN/Creatinine Ratio 20.0 (10-20) RATIO Glucose 111 H (74-106) mg/dL Hemoglobin A1c (4.2-6.3) % Calcium 8.7 (8.5-10.1) mg/dL Phosphorus 2.2 L (2.5-4.9) mg/dL Magnesium 2.1 (1.6-2.6) mg/dL Total Bilirubin 0.60 (0.20-1.00) mg/dL AST 24 (15-37) U/L ALT 14 (13-56) U/L Alkaline Phosphatase 68 (45-117) U/L Total Protein 6.1 L (6.4-8.2) g/dL Albumin 3.3 (3.2-5.0) g/dL Globulin 2.8 (2.2-4.2) g/dL Albumin/Globulin Ratio 1.2 (0.9-2.4) RATIO POC Glucose 147 H (70-110) mg/dL none Operations: None Procedures: - - overnight trending pulse ox Summary of Care Provided: The pt is a 68-year-old female with a PMH of essential hypertension,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type 2, morbid obesity, coronary artery disease with a history of stent to the LAD in 2018, GERD, gout, obstructive sleep apnea, stage III chronic renal failure and osteoarthritis admitted to the Inpatient rehab unit at [facility] on 09/04/2019 for debility secondary to right reverse shoulder arthroplasty on 09/03/2019 for greater than 3 hours of therapy daily with a goal of returning home at or near her prior level of independence. The patient lives at home with her and has 2 steps to get into the house. The patient was ind ependent with ADL's, mobility and driving prior to hospitalization. Lab at admission showed a hemoglobin of 11.6 and normal platelets. White blood cell count was mildly increased at 11.1 likely secondary to pain/inflammation. A CMP showed a BUN of 25 with a creatinine of 1.25, which is down from 1.75 in April 2019. Hemoglobin A1c was 6.0. LFTs were within normal limits. She was c/o lightheadedness at admission and Lasix was held. She had no peripheral edema and the lungs were diminished but, CTA. She complained of chronic fatigue and had restless legs at night. Pulse ox on RA with ambulation was 86% and she was placed on oxygen with activity. She has a CPAP machine but, she has not had a sleep study for several years and she has gained a significant amount of weight. An overnight trending pulse ox was done and she had 30 desaturations with the lowest O2 sat being 83%. Oxygen was ordered with CPAP overnight. She had no restless leg while in the hospital and she was not on Requip. Blood sugars were very good in the hospital and actually she had hypoglycemia. the Victoza was decreased to 1.2 mg daily and the blood sugars are very good. She has been on an 1800 calorie, low salt and low fat. The blood sugars on 1.2 mg were in the 90's and she may be able to go down to 0.6 mg IF she is adherent to the diet. I recommended that she follow up with the [facility] program at the hospital run by the dieticians. She will ask Dr. Almanza for a referral. She did very well in rehab and was ready for discharge on 09/14/19. BP's have been on the low side even with discontinuation of the Lasix and the Lisinopril dose was decreased to 10 mg daily. Celexa was decreased to once daily and she had less fatigue. She has an appt with the sleep lab on 09/17/19 for a CPAP titration study. She has a follow up with Dr.Derek Ibarra scheduled for September 27. She will follow up with Dr. Almanza in 1 week. She will follow up with Dr. Winter as previously arranged. The importance of salt restriction if she wants to stay off Lasix was stressed with her. Her kidney function and creat improved with DC of the Lasix. She will also continue wearing compressions stocking and elevating her legs when sitting in a chair. She was advised to start a walking program and work up to 30 minutes daily. The pulse ox on RA with ambulation prior to DC was 92-97%. The insurance company will not approve oxygen bleed in at night for her without a sleep study so the sleep lab was very cooperative and were able to arrange a CPAP titration study for her this coming Tuesday. PHYSICAL EXAM: GENERAL: alert, oriented X 3, Cooperative, NAD ORAL: moist mucosa, no mucosal lesions NECK: No JVD, supple, trachea midline, no carotid bruits LUNGS: CTA, symmetric chest expansion, mildly diminished in the bases HEART: RRR, Normal S1 and S2, no rub, no gallop, no murmurs ABDOMEN: Obese, soft, NT, ND, BS present, no guarding with palpation EXTREMITIES: no edema with the compression socks in place and on no Lasix, no cyanosis, no calf tenderness SKIN: No rashes, no breakdown NEUROLOGIC: no focal neurologic deficits PSYCH: appropriate, normal affect, pleasant This note was generated with [employer] dictation software. It may contain incorrect words, spelling, and punctuation that were not noted in checking the note before signing. - Physical Exam Vitals/I&O's: Vital Signs Temp Pulse Resp BP Pulse Ox 97.9 F 65 18 98/64 93 09/14/19 07:46 09/14/19 08:09 09/14/19 07:46 09/14/19 07:46 09/14/19 07:46 Oxygen Flow Rate (L/min) 2 Oxygen Delivery Method Room Air Weight: 310 lb 0.013 oz Body Mass Index (BMI) 56.7 Finger Stick Blood Glucose 101 Intake and Output for Last 24 Hours 09/12/19 09/13/19 09/14/19 23:59 23:59 23:59 Intake Total 400 / 400 720 / 720 240 / 240 Balance 400 / 400 720 / 720 240 / 240 Laboratory Results 09/13/19 12:02: POC Glucose 106 09/13/19 16:49: POC Glucose 87 09/13/19 22:36: POC Glucose 91 09/14/19 06:41: POC Glucose 88 Current Medications Acetaminophen (Tylenol) 1,000 mg PO Q8 [facility] Last Admin: 09/14/19 06:38 Dose: 1,000 mg Documented by[facility]: 09/14/19 08:08 Dose: 200 mg Documented by: Apixaban (Eliquis) 2.5 mg PO BID [facility] Last Admin: 09/14/19 08:09 Dose: 2.5 mg Documented by: Aspirin (Aspirin) 325 mg PO DAILY@0800 [facility] Last Admin: 09/14/19 08:09 Dose: 325 mg Documented by: Bisacodyl (Dulcolax) 10 mg RECTAL .PRN X 1 PRN PRN Reason: Constipation Last Admin: 09/06/19 18:46 Dose: 10 mg Documented by: Bupropion HCl (Wellbutrin Xl) 150 mg PO DAILY [facility] Last Admin: 09/14/19 08:09 Dose: 150 mg Documented by: Calamine/Phenol (Calmoseptine Ointment) 1 applic TOPICAL BID [facility]; Protocol Last Admin: 09/14/19 08:12 Dose: 1 applicatio Documented by: Citalopram Hydrobromide (Celexa) 20 mg PO DAILY [facility] Last Admin: 09/14/19 08:09 Dose: 20 mg Documented by: Liraglutide (Victoza) 1.2 mg SQ DAILY [facility] Last Admin: 09/14/19 08:08 Dose: 1.2 mg Documented by: Lisinopril (Zestril) 20 mg PO DAILY [facility] Last Admin: 09/14/19 08:09 Dose: 20 mg Documented by: Magnesium Hydroxide (Milk Of Magnesia) 30 ml PO .PRN X 1 PRN PRN Reason: Constipation Last Admin: 09/06/19 05:16 Dose: 30 ml Documented by: Metoprolol Tartrate (Lopressor (Beta Jessica)) 25 mg PO BID [facility] Last Admin: 09/14/19 08:09 Dose: 25 mg Documented by: Nystatin (Nystatin) 500,000 unit PO 4X/DAY [facility] Last Admin: 09/14/19 08:08 Dose: 500,000 unit Documented by: Ondansetron HCl (Zofran Odt) 4 mg PO Q8H PRN PRN PRN Reason: NAUSEA Oxycodone HCl (Oxyir) 10 mg PO Q4H PRN PRN PRN Reason: Pain Score 6-10/10 Last Admin: 09/14/19 07:00 Dose: 10 mg Documented by: Pantoprazole Sodium (Protonix) 20 mg PO DAILY [facility] Last Admin: 09/14/19 08:09 Dose: 20 mg Documented by: Polyethylene Glycol (Miralax) 17 gm PO DAILY [facility] Last Admin: 09/14/19 08:01 Dose: 17 gm Documented by: Tizanidine HCl (Zanaflex) 2 mg PO QHS [facility] Last Admin: 09/13/19 21:47 Dose: 2 mg Documented by: Discharge Activity: May not drive while taking narcotic pain medications., - - activity as tolerated May shower in (days): 1 Ice area for (Minutes): 20 - every 3-4 hours during the day Weight Bearing Status: Full weight bearing Keep extremity elevated above heart level: Right Arm Additional Activity Instructions:: I suggest you start walking everyday......this can be in the house if the weather is bad. Start with 10 minutes and increase as tolerated to 30 minutes a day. Take Yannick with you! Call your doctor if you observe: Fever of 101 or Higher, Coldness, Increased Pain, Numbness or Tingling, Change in Color, Inability to have a bowel movement, Shortness of breath, Dizziness, Fainting spells, Swelling in the ankles, Chest pain, Calf discomfort, Uncontrolled pain Home Medications: Medications to take at Discharge allopurinol 100 mg tablet 100 mg PO BID tab 03/15/18 Cholecalciferol (Vitamin D3) [Vitamin D3] 5,000 unit PO DAILY 04/07/18 Clopidogrel Bisulfate [Clopidogrel] 75 mg PO DAILY 09/04/19 colestipol 1 gram tablet 2 g PO BID #360 tab 09/05/19 Acetaminophen [Tylenol] 1,000 mg PO Q8H tab 09/14/19 Citalopram [Celexa] 20 mg PO DAILY tab 09/14/19 Liraglutide [Victoza] 1.2 mg SQ DAILY 30 Days #5 pen.[email or web address] 09/14/19 Lisinopril [Prinivil] 10 mg PO DAILY #30 tab 09/14/19 Metoprolol Tartrate [Lopressor (beta jessica)] 25 mg PO BID tab 09/14/19 Oxycodone [Oxyir] 10 mg PO Q4H PRN PRN 7 Days #56 tab 09/14/19 Polyethylene Glycol 3350 [Miralax] 17 gm PO DAILY #30 packet 09/14/19 Tizanidine HCl [Zanaflex] 2 mg PO QHS #30 tab 09/14/19 buPROPion XL [Wellbutrin Xl] 150 mg PO DAILY tablet.xl 09/14/19 Following Prescrptions Were Given to Patient: Polyethylene Glycol 3350 [Miralax] 17 gm PO DAILY #30 packet Transmission Status: Received by [id number] Oxycodone [Oxyir] 10 mg PO Q4H PRN PRN 7 Days #56 tab PRN Reason: Pain Score 6-10/10 Transmission Status: Received by [id number] Lisinopril [Prinivil] 10 mg PO DAILY #30 tab Transmission Status: Received by [id number] Liraglutide [Victoza] 1.2 mg SQ DAILY 30 Days #5 pen.injctr Transmission Status: Received by [id number] Tizanidine HCl [Zanaflex] 2 mg PO QHS #30 tab Transmission Status: Received by [id number] Primary Care Physician: Sachin Almanza DO [Primary Care Provider] - Please follow up with your Primary Care Physician in: 1-2 weeks Please Follow Up With: Dr Fred Alvarez Please Follow Up With: Sleep study Patient Instructions: Why Diets Don't Work, My[employer]ate Worksheet: 1,800 Calories Disposition: Home Minutes spent on discharge:: 45 Patient Condition:: Good Medical Necessity - Tobacco Use Smoking Status: Never smoker Tobacco Use: Non-smoker Meaningful Use Info Meaningful Use Diagnoses (Choose all that apply): None applicable Code Visit Inpatient E&M: 40315 Disch Hosp
--- NOTE | 2019-09-14 12:21 | NURSING ---
discharged home with family. discharged instructions, medications and appointments discussed with pt and , denies questions or concerns.
--- NOTE | 2019-09-14 12:47 | CASEMGMT ---
Social Work Pt was rescheduled for sleep study Oct 18 - spoke with the sleep lab and pt will receive O2 through [employer]. Pt aware. Katy Glaser, [employer]
== END 2019-09-14 12:23 | disposition home or self-care (01) | DRG 560 ==
PROVIDERS: Admitting Provider Internal Medicine; Family Provider Family Medicine; PCP Family Medicine; Visit Provider Internal Medicine
DX: Z47.1 Aftercare following joint replacement surgery (principal); Z68.43 Body mass index [BMI] 50.0-59.9, adult; Z96.611 Presence of right artificial shoulder joint; N18.3 Chronic kidney disease, stage 3 (moderate); I12.9 Hypertensive chronic kidney disease with stage 1 through stage 4 chronic kidney disease, or unspecified chronic kidney disease; E11.22 Type 2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with diabetic chronic kidney disease; I25.10 Atherosclerotic heart disease of native coronary artery without angina pectoris; G47.30 Sleep apnea, unspecified; K21.9 Gastro-esophageal reflux disease without esophagitis; E66.01 Morbid (severe) obesity due to excess calories; E78.00 Pure hypercholesterolemia, unspecified; M15.0 Primary generalized (osteo)arthritis; Z71.3 Dietary counseling and surveillance; G25.81 Restless legs syndrome; F32.9 Major depressive disorder, single episode, unspecified; M1A.9XX0 Chronic gout, unspecified, without tophus (tophi); R09.02 Hypoxemia
CPT/HCPCS: 36415; 80053; 82962; 83036; 83735; 84100; 85027; 94762; 97110; 97116; 97140; 97162; 97166; 97530; 97535; 97802; 99251; G0463

== ENCOUNTER → 2019-09-17 20:25 | Outpatient (CLI) | payer MEDICARE, OTHER, SELFPAY ==
[2018-03-28 12:55] VITALS: BMI 56.3
[2019-09-04 15:47] VITALS: BMI 56.7
== END ==
PROVIDERS: Family Provider Family Medicine; PCP Family Medicine; Referring Provider Internal Medicine; Visit Provider Internal Medicine
DX: G47.33 Obstructive sleep apnea (adult) (pediatric) (principal)
CPT/HCPCS: 95811

== ENCOUNTER → 2019-09-25 12:07 | Outpatient (CLI) | payer MEDICARE, OTHER, SELFPAY ==
[2018-03-28 12:55] VITALS: BMI 56.3
[2019-09-04 15:47] VITALS: BMI 56.7
--- NOTE | 2019-09-25 12:30 | VDLE_ITS ---
Reason For Study: pain RIGHT LEFT GSV is normal. CFV is compressible, spontaneous, phasic, CFV is compressible, spontaneous, phasic, competent, and demonstrates normal competent and demonstrates normal augmentation. augmentation. FV is compressible, spontaneous, phasic, competent and demonstrates normal augmentation. POP V is compressible, spontaneous, phasic, competent and demonstrates normal augmentation. T/P Trunk is compressible. PTV is compressible. RT PerV is compressible. Procedure Exam performed in department. The exam was diagnostic. A preliminary report was called and/or faxed to Dr. Almanza. Interpretation Summary Deep veins of the right lower extremity are patent and compressible segmentally. There is no evidence of right lower extremity deep vein thrombosis. Valvular competence appears intact within the proximal deep venous system on the right . The right great saphenous vein appears patent and compressible segmentally. Ordering Physician: Sachin Almanza Performed By: Chaim Bacon RVT
[2019-09-25 12:45] LABS: Basophil# 0.05 X10^3/uL; Basophil% 0.8 % (0-1); Eosinophil# 0.24 X10^3/uL; Eosinophils% 3.9 % (0-5); Hematocrit 35.9 % (37-47); Hemoglobin 11.3 g/dL (12.0-15.0); Lymphocyte % 21.3 % (19-41); Mean Corp Hgb Conc 31.5 g/dL (32-36); Mean Corpuscular Hgb 30.8 pg (27.0-32.0); Mean Corpuscular Volume 97.8 fL (81-99); Mean Platelet Vol. 9.1 fl (6.2-12.0); Monocyte% 8.2 % (0-10); NRBC Flagged by Analyzer 0 % (0-5); Neutrophil # 3.98 X10^3/uL (2.7-7.7); Neutrophil % 65.3 % (47-70); Platelet Count 289 K/mm3 (150-450); RBC Distribution Width SD 50.3 fl (35.1-43.9); Red Blood Count 3.67 M/mm3 (4.2-5.4); White Blood Count 6.1 K/mm3 (4.4-11.0)
[2019-09-25 13:40] LABS: ALB/GLOB Ratio 1.1 RATIO (0.9-2.4); AST(SGOT) 19 U/L (15-37); Alanine Aminotransfer ALT/SGPT 22 U/L (13-56); Albumin, Serum 3.4 g/dL (3.2-5.0); Alkaline Phosphatase 98 U/L (45-117); Anion Gap 5 (5-15); BUN 20 mg/dL (7-18); BUN/Creat Ratio 16.3 RATIO (10-20); Calcium,Total 8.4 mg/dL (8.5-10.1); Chloride 111 mmol/L (98-107); Creatinine, Serum 1.23 mg/dL (0.55-1.02); EST Glomerular Filtration Rate 46 mL/min (>60); Est Glom Filt Rate - Afr Amer 56 mL/min (>60); Globulin 3.2 g/dL (2.2-4.2); Glucose 84 mg/dL (74-106); Potassium 4.2 mmol/L (3.5-5.1); Protein, Total 6.6 g/dL (6.4-8.2); Sodium Level 140 mmol/L (136-145); Thyroid Stim Hormone (TSH) 0.63 uIU/mL (0.358-3.74)
== END ==
PROVIDERS: Family Provider Family Medicine; PCP Family Medicine; Referring Provider Family Medicine; Visit Provider Family Medicine
DX: M79.604 Pain in right leg (principal); R53.83 Other fatigue
CPT/HCPCS: 36415; 80053; 84443; 85025; 93971

== ENCOUNTER → 2019-10-02 15:26 | Outpatient (CLI) | payer MEDICARE, OTHER, SELFPAY ==
[2018-03-28 12:55] VITALS: BMI 56.3
[2019-09-27 06:48] VITALS: BMI 56.7
--- NOTE | 2019-10-02 15:40 | RAD_ITS ---
STUDY: X-RAY - RIGHT FEMUR REASON FOR STUDY: Female, 69 years old. RIGHT LEG, GROIN PAIN TECHNIQUE: 2 view(s) of the femur. COMPARISON: None. FINDINGS: Normal visualized femur. Normal visualized soft tissue structure. There are atherosclerotic vascular calcifications. RAD/Femur Min 2 Views IMPRESSION: Normal x-ray examination of the femur. Electronically Signed: Sushil Venegas MD at 23:58 EST , Service support ,
== END ==
PROVIDERS: Family Provider Family Medicine; PCP Family Medicine; Referring Provider Family Medicine; Visit Provider Family Medicine
DX: M79.604 Pain in right leg (principal)
CPT/HCPCS: 73552

== ENCOUNTER → 2019-10-11 16:20 | Outpatient (CLI) | payer MEDICARE, OTHER, SELFPAY ==
[2018-03-28 12:55] VITALS: BMI 56.3
[2019-09-27 06:48] VITALS: BMI 56.7
[2019-10-11 18:11] LABS: Creatinine, Serum 1.79 mg/dL (0.55-1.02); EST Glomerular Filtration Rate 30 mL/min (>60); Est Glom Filt Rate - Afr Amer 36 mL/min (>60)
== END ==
PROVIDERS: PCP Family Medicine; Referring Provider Physician Assistant Surgical; Visit Provider Physician Assistant Surgical
DX: N28.9 Disorder of kidney and ureter, unspecified (principal)
CPT/HCPCS: 36415; 82565

== ENCOUNTER → 2019-10-17 07:06 | Outpatient (CLI) | payer MEDICARE, OTHER, SELFPAY ==
[2018-03-28 12:55] VITALS: BMI 56.3
[2019-09-27 06:48] VITALS: BMI 56.7
--- NOTE | 2019-10-17 07:11 | MRI_ITS ---
STUDY: MRI OF THE RIGHT FEMUR WITHOUT CONTRAST REASON FOR EXAM: Female, 69 years old. Atraumatic femur pain for one month. TECHNIQUE: Multisequence multiplanar imaging of the right femur is obtained without contrast. COMPARISON: X-rays of the right femur dated October 02, 2019. FINDINGS: Arthrosis of both hips. Effusion of the right hip with distention of the iliopsoas bursa (axial series 6 images 4-12). Gluteal muscle atrophy (sagittal series 3 image 15). No significant abnormality in the remainder of the subcutaneous soft tissues, muscles, neurovascular bundles and osseous structures. MRI/Lower Ext/No Jt/w/o IMPRESSION: Gluteal muscle atrophy. Arthrosis of both hips. Right hip effusion with distention of the iliopsoas bursa. Electronically Signed: Rajan Solitario MD at 12:34 EST , Service support ,
== END ==
PROVIDERS: PCP Family Medicine; Referring Provider Physician Assistant Surgical; Visit Provider Physician Assistant Surgical
DX: M79.604 Pain in right leg (principal)
CPT/HCPCS: 73718

== ENCOUNTER → 2019-10-19 11:38 | Outpatient (CLI) | payer MEDICARE, OTHER, SELFPAY ==
[2018-03-28 12:55] VITALS: BMI 56.3
[2019-09-27 06:48] VITALS: BMI 56.7
[2019-10-19 14:14] LABS: Albumin, Serum 4.1 g/dL (3.2-5.0); BUN 45 mg/dL (7-18); BUN/Creat Ratio 28.1 RATIO (10-20); Calcium,Total 9.3 mg/dL (8.5-10.1); Chloride 104 mmol/L (98-107); EST Glomerular Filtration Rate 34 mL/min (>60); Est Glom Filt Rate - Afr Amer 41 mL/min (>60); Glucose 120 mg/dL (74-106); Magnesium 2.1 mg/dL (1.6-2.6); Phosphorus 3.4 mg/dL (2.5-4.9); Potassium 3.7 mmol/L (3.5-5.1); Sodium Level 136 mmol/L (136-145)
== END ==
PROVIDERS: PCP Family Medicine; Referring Provider Internal Medicine Nephrology; Visit Provider Internal Medicine Nephrology
DX: I12.9 Hypertensive chronic kidney disease with stage 1 through stage 4 chronic kidney disease, or unspecified chronic kidney disease (principal); N18.9 Chronic kidney disease, unspecified
CPT/HCPCS: 36415; 80069; 83735

== ENCOUNTER → 2019-10-31 15:27 | Outpatient (CLI) | payer MEDICARE, OTHER, SELFPAY ==
[2018-03-28 12:55] VITALS: BMI 56.3
[2019-09-27 06:48] VITALS: BMI 56.7
[2019-10-31 17:36] LABS: Magnesium 2.2 mg/dL (1.6-2.6); Uric Acid 6.2 mg/dL (2.6-6.0)
[2019-10-31 17:46] LABS: Microalbumin,Random Urine 5.7 mg/L (NO RANGE EST.); Microalbumin:Creatinine Ratio 25.3 mg/g CRE (<30 mg/g CRE)
[2019-10-31 17:50] LABS: Vitamin D,25 Hydroxy 55.6 ng/mL (29.95-100.01)
[2019-11-01 09:37] LABS: PTHIN 60.6 pg/mL (18.4-80.1)
== END ==
PROVIDERS: PCP Family Medicine; Referring Provider Internal Medicine Nephrology; Visit Provider Internal Medicine Nephrology
DX: N18.4 Chronic kidney disease, stage 4 (severe) (principal); E55.9 Vitamin D deficiency, unspecified; M10.9 Gout, unspecified
CPT/HCPCS: 36415; 82043; 82306; 82570; 83735; 83970; 84550

== ENCOUNTER 2019-11-19 07:03 | Day surgery (SDC) | payer MEDICARE, OTHER, SELFPAY ==
[2018-03-28 12:55] VITALS: BMI 56.3
[2019-09-27 06:48] VITALS: BMI 56.7
[2019-11-19 07:37] VITALS: BP 119/73; PULSE 66; RESP 18; TEMP 37.2; O2SAT 97; BMI 55.7
[2019-11-19 08:00] LABS: Bedside Glucose 96 mg/dL (70-110)
--- NOTE | 2019-11-19 08:15 | RAD_ITS ---
PROCEDURE: Right hip injection. DATE OF EXAMINATION: November 19, 2019. INDICATION: Female, 69 years old. Right hip pain. FLUOROSCOPY TIME (if supplied): (42.6 seconds) minutes/seconds Fluoroscopic guidance provided for right hip injection. RAD/Fluoro Guided Needle Placement IMPRESSION: Intraoperative fluoroscopic guidance for right hip injection. Electronically Signed: Librado Lay, at 9:58 EST , Service support ,
[2019-11-19] MEDS: Bupivacaine 0.25% 30 ML Vial (08:21)
[2019-11-19] MEDS: MethylPREDNISolone Acetate 80 MG/ML Vial (08:21)
[2019-11-19 08:39] VITALS: BP 110/52; BP 119/73; PULSE 66; RESP 18; TEMP 36.9; O2SAT 98
--- NOTE | 2019-11-19 08:51 | PCM.OPRPT ---
Report of Operation Date of Procedure: 11/19/19 Description of Surgical Findings:: PREOPERATIVE DIAGNOSIS: Osteoarthritis of the right hip POSTOPERATIVE DIAGNOSIS: Osteoarthritis of the right hip PROCEDURE PERFORMED: Right hip intraarticular steroid injection under fluoroscopy guidance. ANESTHESIA: Local. BLOOD LOSS: Minimal. COMPLICATIONS: None. DESCRIPTION OF PROCEDURE: History and physical of today was reviewed. Risks and benefits of the procedure were explained. The patient understood and agreed to proceed. Informed consent was obtained. IV inserted per routine protocol. The patient was taken to the operating room and placed in the supine position. The right hip area was prepped and draped in a sterile fashion using iodine x3. Under fluoroscopy guidance on AP view, the right hip joint was visualized. The skin and subcutaneous tissue was anesthetized with approximately 3 mL of 1% lidocaine using a 25-gauge regular needle approximately 3 cm cephalad to the right greater trochanter. Under direct visualization with fluoroscopy on an AP view, using a 22-gauge 7-inch spinal needle, the needle was advanced via the skin using the lateral approach. The tip of the needle was maneuvered and directed towards the superiormost aspect of the hip joint. Once the tip of the needle was at the vicinity of the joint, after negative aspiration for blood and positive aspiration of synovial fluid, a total of 1 mL of contrast was injected to confirm correct placement of the needle as well as halo spread around the hip joint. After repeated negative aspiration for blood and confirmation on AP as well as oblique view, a total of 10 mL of preservative-free 0.25% Marcaine with 80 mg of Depo-Medrol was injected easily. The needle was then removed intact. The patient experienced no sign or symptoms of intrathecal or intravascular injection. The patient experienced no paresthesia. The procedure was completed without any apparent difficulty or any complications. The patient appeared to tolerate it well. ASSESSMENT AND PLAN: This is a 69-year-old female with osteoarthritis of the right hip status post right hip intra-articular steroid injection under fluoroscopic guidance patient will continue current medications patient will follow approximately 2 weeks for reevaluation.
== END 2019-11-19 08:50 | disposition home or self-care (01) ==
LOC: SDC 07:04 → AC 07:04
PROVIDERS: PCP Family Medicine; Referring Provider Anesthesiology Pain Medicine; Visit Provider Anesthesiology Pain Medicine
PROC: 3E0U3GC Introduction of Other Therapeutic Substance into Joints, Percutaneous Approach (ICD-10-PCS; CPT 20610; principal; 2019-11-19 08:05)
DX: M16.11 Unilateral primary osteoarthritis, right hip (principal); M70.71 Other bursitis of hip, right hip; E11.22 Type 2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with diabetic chronic kidney disease; I12.9 Hypertensive chronic kidney disease with stage 1 through stage 4 chronic kidney disease, or unspecified chronic kidney disease; N18.9 Chronic kidney disease, unspecified; M10.9 Gout, unspecified; G47.33 Obstructive sleep apnea (adult) (pediatric); I25.2 Old myocardial infarction; Z79.02 Long term (current) use of antithrombotics/antiplatelets; Z79.899 Other long term (current) drug therapy; Z95.5 Presence of coronary angioplasty implant and graft
CPT/HCPCS: 20610; 76000; 77002; 82962; J7120

== ENCOUNTER 2020-01-28 10:43 | Emergency (ER) | payer MEDICARE, OTHER, SELFPAY ==
[2018-03-28 12:55] VITALS: BMI 56.3
[2020-01-08 13:04] VITALS: BMI 55.7
[2020-01-28 10:45] VITALS: BP 109/77; PULSE 70; RESP 17; TEMP 36.4; O2SAT 96; BMI 54.3
--- NOTE | 2020-01-28 11:00 | CT_ITS ---
STUDY: CT CERVICAL SPINE WITHOUT CONTRAST REASON FOR EXAM: Female, 69 years old. FALL, HIT HEAD ON WALL RADIATION DOSAGE (If Supplied By Facility): CTDIvol = ( 41.93 ) mGy, DLP = ( 861.20 ) mGycm TECHNIQUE: High resolution transaxial imaging was performed without contrast material. Sagittal and coronal images were reconstructed. Individualized dose optimization techniques were used for this CT. COMPARISON: None FINDINGS: Normal craniovertebral junction. There are degenerative changes of the anterior atlantoaxial articulation. Normal odontoid process. Normal cervical lordosis. Normal vertebral bodies and posterior osseous elements. C2-3: Minimal anterior listhesis of C2 on C3. Facet joint osteoarthritis worse on the right side. C3-4: Marked degree of a disc space narrowing. Spondylosis. Uncovertebral arthrosis. Mild degree of bilateral neural foraminal stenosis. C4-5: Marked degree of disc space narrowing with spondylosis. Uncovertebral arthrosis. Moderate degree of bilateral neural foraminal stenosis worse on the right side. C5-6: Marked degree of disc space narrowing with spondylosis. Uncovertebral arthrosis. Moderate degree of bilateral neural foraminal stenosis. C6-7: Moderate degree of disc space narrowing with spondylosis. Facet joint osteoarthritis. Moderate degree of bilateral neural foraminal stenosis. Calcification of the carotid bifurcations bilaterally. CT/Spine Cervical without Contras IMPRESSION: Multilevel degenerative changes, as described above. Electronically Signed: Librado Lay, at 12:10 EDT , Service support ,
--- NOTE | 2020-01-28 11:00 | CT_ITS ---
STUDY: CT BRAIN WITHOUT CONTRAST REASON FOR EXAM: Female, 69 years old. FALL, HIT HEAD ON WALL RADIATION DOSAGE (If Supplied By Facility): CTDIvol = ( 44.99 ) mGy, DLP = ( 812.98 ) mGycm TECHNIQUE: Transaxial CT imaging of the brain was performed without administration of intravenous contrast material. Individualized dose optimization techniques were used for this CT. COMPARISON: No relevant priors. FINDINGS: Normal soft tissue structures. Normal calvarium. There is mild cerebral atrophy with widening of the extra-axial spaces and ventricular dilatation. There are areas of decreased attenuation within the white matter tracts of the supratentorial brain, consistent with microvascular disease changes. Normal basal ganglia and thalami. Normal brainstem. Normal cerebellum. There is no intracranial hemorrhage. There are no findings of an acute ischemic infarction. Atherosclerotic calcification of the cavernous portions of the internal carotid arteries bilaterally. Normal visualized paranasal sinuses. CT/Brain/Head without Contrast IMPRESSION: Chronic involutional changes of the brain. Electronically Signed: Librado Lay, at 12:12 EDT , Service support ,
--- NOTE | 2020-01-28 11:01 | RAD_ITS ---
STUDY: X-RAY - LEFT SHOULDER REASON FOR EXAM: Female, 69 years old. FELL TODAY -- BILATERAL SHOULDER PAIN TECHNIQUE: 4 view(s) of the shoulder. COMPARISON: None. FINDINGS: Normal glenohumeral articulation. Normal acromioclavicular joint. Normal acromion. Normal humeral head and visualized proximal humerus. The soft tissue structures are unremarkable. Normal visualized pulmonary apex. RAD/Shoulder min 2 Views IMPRESSION: Normal x-ray examination of the shoulder. Electronically Signed: Librado Lay, at 12:12 EDT , Service support ,
--- NOTE | 2020-01-28 11:01 | RAD_ITS ---
STUDY: X-RAY - RIGHT SHOULDER REASON FOR EXAM: Female, 69 years old. FELL TODAY, RECENT SHOULDER REPLACEMENT -- BILATERAL SHOULDER PAIN, RIGHT HURTS MORE THAN LEFT TECHNIQUE: 4 view(s) of the shoulder. COMPARISON: None. FINDINGS: The patient is status post reverse shoulder replacement. Degenerative changes of the acromioclavicular joint. Normal visualized pulmonary apex. RAD/Shoulder min 2 Views IMPRESSION: Status post right shoulder replacement. There is good alignment. Degenerative changes of the acromioclavicular joint. Electronically Signed: Librado Lay, at 12:12 EDT , Service support ,
--- NOTE | 2020-01-28 11:02 | RAD_ITS ---
STUDY: X-RAY - LEFT WRIST REASON FOR EXAM: Female, 69 years old. FELL TODAY -- WRIST PAIN, POSTERIOR MEDIAL, BRUISING TECHNIQUE: 3 view(s) of the wrist were obtained. COMPARISON: None. FINDINGS: Normal visualized distal radius and ulna. Normal radiocarpal articulation. Normal distal radioulnar articulation. Normal carpal bones. Normal carpal articulations. There is degenerative arthrosis of the carpometacarpal articulation of the thumb. Normal second through fifth carpometacarpal articulations. Normal visualized metacarpal bones. Soft tissue swelling. RAD/Wrist min 3 Views IMPRESSION: No acute abnormality is seen. Electronically Signed: Librado Lay, at 12:13 EDT , Service support ,
--- NOTE | 2020-01-28 11:02 | ED.DCSUM_ITS ---
- ER Visit Summary Date of Service: 01/28/20 Chief Complaint: Fall History of Present Illness: The patient is a 69 F who presents after a fall that occurred today. Patient states she was moving a heavy box along the floor when the box ripped and she fell backwards against the wall. Patient states she hit her head. Patient complains of pain in her neck, both shoulders, and left wrist. Patient states she had recent right shoulder replacement in August. Patient denies any paresthesias or weakness. Patient denies any loss of consciousness. Patient states her pain is sharp and is worse with movement and lifting anything. Physical Examination: Vital signs are stable. Patient is afebrile. Patient is in no acute distress. Musculoskeletal exam reveals tenderness over the posterior aspect of the right shoulder and anterior aspect of the left shoulder. There is no edema or ecchymosis. There is no deformity noted. Range of motion was limited in all motions of both shoulder secondary to pain. There is also tenderness, edema, and ecchymosis over the radial aspect of the left distal radius and wrist. There is no deformity. Range of motion was limited in all motions of the left wrist secondary to pain. There is some mild tenderness and edema over the left occipital area and cervical paraspinal muscles. There is no bony crepitance or step-off. Cranial nerves II through XII are intact. Strength is 5/5 bilateral in the upper and lower extremities. There are no sensory deficits noted. Test Results: CT scan of the brain was obtained. There are chronic changes but no acute infarct or bleed. CT scan of the cervical spine was obtained. There is no acute fracture or dislocation. X-rays of the right shoulder were obtained. There is no acute fracture. There is no displacement of the arthroplasty parts. X-rays of the left shoulder were obtained. There is no acute fracture. X-rays of the left wrist were obtained. There is no acute fracture. These were all interpreted by the radiologist and reviewed by myself. Emergency Department Course and Treatment: Patient was instructed to use ice to her shoulders. Patient was given a prescription for [place] for pain. Patient was instructed to follow-up with her primary care physician in 5 to 7 days. Patient was given head injury instructions. Patient understood and was agreeable with the plan. All questions were answered. Disposition: Discharge home Impression: 1. Closed head injury 2. Right shoulder contusion 3. Left shoulder contusion 4. Left wrist contusion This note was generated with [employer] dictation software. It may contain incorrect words, spelling, and punctuation that were not noted in review of the chart prior to signing ED Disposition - Plan for ED Patient: Disposition: Home or Assisted Living Diagnosis: Closed head injury, Multiple contusions Instructions: ED Head Injury Adult, ED EXTREMITY CONTUSION Upper Prescriptions: Hydrocodone Bitart/Apap 5-325 [[place] 5MG-325MG] 1 tab PO Q6H PRN PRN 3 Days #10 tab PRN Reason: Pain Prescription Printed Referrals: Sachin Almanza DO [Primary Care Provider] - 5-7 Days
[2020-01-28 13:01] VITALS: BP 115/76; PULSE 75; RESP 18; O2SAT 99
--- NOTE | 2020-01-28 13:01 | ED.RN ---
THIS NURSE REVIEWED D/C INSTRUCTIONS WITH PT. PT VERBALIZED UNDERSTANDING OF INSTRUCTION. PT ASSISTED IN GETTING DRESSED. PT DENIES FURTHER NEEDS OR QUESTIONS AT THIS TIME
== END 2020-01-28 13:02 | disposition home or self-care (01) ==
PROVIDERS: Emergency Provider Emergency Medicine; PCP Family Medicine
DX: S09.90XA Unspecified injury of head, initial encounter (principal); S40.011A Contusion of right shoulder, initial encounter; S40.012A Contusion of left shoulder, initial encounter; S60.212A Contusion of left wrist, initial encounter; W01.10XA Fall on same level from slipping, tripping and stumbling with subsequent striking against unspecified object, initial encounter; Y93.89 Activity, other specified; Y92.9 Unspecified place or not applicable; Y99.9 Unspecified external cause status; E11.22 Type 2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with diabetic chronic kidney disease; I12.9 Hypertensive chronic kidney disease with stage 1 through stage 4 chronic kidney disease, or unspecified chronic kidney disease; N18.9 Chronic kidney disease, unspecified; I25.10 Atherosclerotic heart disease of native coronary artery without angina pectoris; Z79.02 Long term (current) use of antithrombotics/antiplatelets; Z79.899 Other long term (current) drug therapy; Z87.11 Personal history of peptic ulcer disease; Z96.611 Presence of right artificial shoulder joint
CPT/HCPCS: 70450; 72125; 73030; 73110; 99282

== ENCOUNTER → 2020-02-01 13:02 | Outpatient (CLI) | payer MEDICARE, OTHER, SELFPAY ==
[2018-03-28 12:55] VITALS: BMI 56.3
[2019-11-27 14:27] VITALS: BMI 55.7
[2020-01-28 10:45] VITALS: BMI 54.3
--- NOTE | 2020-02-01 13:15 | MRI_ITS ---
STUDY: MRI BRAIN WITH AND WITHOUT CONTRAST REASON FOR EXAM: Female, 69 years old. H/A,new onset of hallucinations TECHNIQUE: Standardized multiplanar fat and water weighted pulse sequences were obtained. IV 28cc dotarem was administered for the contrast portion of the examination. COMPARISON: CT 01/28/2020 FINDINGS: There is moderate cerebral atrophy with widening of the extra-axial spaces and ventricular dilatation. Normal white matter tracts of the supratentorial brain. There is no evidence for recent intracranial ischemia or other cause of cytotoxic edema on diffusion weighted imaging (DWI). Normal T2* images of the brain without demonstrated susceptibility artifact. There is no demonstrated hemosiderin stain. Normal bilateral basal ganglia. Normal thalami. There is no extra-axial fluid accumulation. Normal flow voids within the major intracranial circulation suggesting patency by spin echo criteria. Normal venous enhancement. There is no enhancing intra-axial or extra-axial abnormality. Normal sella turcica, pituitary gland, infundibular stalk, optic chiasm and hypothalamus. Normal tectal plate and pineal gland. Normal midbrain, ayesha and medulla. Normal cerebellum. Normal basal cisterns. Normal bilateral temporal bones. Normal bilateral internal auditory canals. There are bilateral ocular lens implants with otherwise normal intraorbital contents. Normal visualized paranasal sinuses. Normal calvarium and skull base. Normal visualized soft tissue structures. Normal visualized upper cervical spine. MRI/Brain W/WO Contrast IMPRESSION: Involutional changes of the brain, as described above. No acute infarct. Electronically Signed: William Fisher MD at 16:42 EDT Tel , Service support ,
[2020-02-01 13:40] LABS: CREATININE FINGERSTICK 1.6 mg/dL (0.55-1.02)
== END ==
PROVIDERS: PCP Family Medicine; Referring Provider Family Medicine; Visit Provider Family Medicine
DX: R51 Headache (principal); R44.1 Visual hallucinations
CPT/HCPCS: 70553; A9575

== ENCOUNTER → 2020-02-21 10:17 | Outpatient (CLI) | payer MEDICARE, OTHER, SELFPAY ==
[2018-03-28 12:55] VITALS: BMI 56.3
[2020-01-28 10:45] VITALS: BMI 54.3
[2020-02-21 11:22] LABS: Hematocrit 39.3 % (37-47); Hemoglobin 12.5 g/dL (12.0-15.0); Mean Corp Hgb Conc 31.8 g/dL (32-36); Mean Corpuscular Hgb 30.8 pg (27.0-32.0); Mean Corpuscular Volume 96.8 fL (81-99); Mean Platelet Vol. 9.6 fl (6.2-12.0); Platelet Count 229 K/mm3 (150-450); RBC Distribution Width CV 14.6 % (11.6-14.6); RBC Distribution Width SD 51.3 fl (35.1-43.9); Red Blood Count 4.06 M/mm3 (4.2-5.4); White Blood Count 6.8 K/mm3 (4.4-11.0)
[2020-02-21 11:42] LABS: Microalbumin,Random Urine < 5.0 mg/L (NO RANGE EST.)
[2020-02-21 11:50] LABS: Vitamin D,25 Hydroxy 49.3 ng/mL
[2020-02-21 11:55] LABS: Albumin, Serum 3.8 g/dL (3.2-5.0); BUN 34 mg/dL (7-18); BUN/Creat Ratio 22.4 RATIO (10-20); Calcium,Total 9.2 mg/dL (8.5-10.1); Chloride 110 mmol/L (98-107); Creatinine, Serum 1.52 mg/dL (0.55-1.02); EST Glomerular Filtration Rate 36 mL/min (>60); Est Glom Filt Rate - Afr Amer 43 mL/min (>60); Glucose 104 mg/dL (74-106); Magnesium 2.3 mg/dL (1.6-2.6); Phosphorus 3.6 mg/dL (2.5-4.9); Potassium 5.7 mmol/L (3.5-5.1); Sodium Level 141 mmol/L (136-145); Uric Acid 6.7 mg/dL (2.6-6.0)
== END ==
PROVIDERS: PCP Family Medicine; Referring Provider Internal Medicine Nephrology; Visit Provider Internal Medicine Nephrology
DX: N18.4 Chronic kidney disease, stage 4 (severe) (principal); M10.9 Gout, unspecified; Z13.0 Encounter for screening for diseases of the blood and blood-forming organs and certain disorders involving the immune mechanism
CPT/HCPCS: 36415; 80069; 82043; 82306; 82570; 83735; 83970; 84550; 85027

== ENCOUNTER 2020-04-23 11:00 | Outpatient (RCR) | payer MEDICARE, OTHER, SELFPAY ==
[2018-03-28 12:55] VITALS: BMI 56.3
[2019-09-27 06:48] VITALS: BMI 56.7
--- NOTE | 2020-04-08 09:53 | HP.PTEVAL ---
Patient's Visit Information JACEK LOPEZ is a 69 year old F referred to Physical Therapy by Dr. Jeffrey Gordon MD with a diagnosis of DDD of cervical spine, R Shoulder Reverse total arthoplasty. Date of Evaluation: 04/08/20 Physical Therapist: Jonas Hodges DPT - Visit Plan Frequency: 2-3x /Week Duration: 4-6 Weeks Plan: Pt. is appropriate for aquatic PT with focus on improving painfree active R shoulder ROM, initiating strengthening phase III, postural control awareness. Goal of progessing to independent program. - Subjective Pt. is here today for her initial evaluation with diagnosis of DDD of cervical spine, and R Reverse total shoulder DOS: 09/03/19. Pt. reports she had her shoulder replaced late last year and was doing well, never gettign full motion or strength, but was doing okay. Then she fell in January of 2020 whie moving homes. Pt. reports she was lifting a box and fell backwards landing on her shoulders and back. Pt. reports experiencing increased L hand N/T and increased B shoulder pain since. N/T is intermittent, but is whole arm when it does occure. More pain in AM. Pt. also reports a constant ache in her R shoulder, increaed pain with any attempts to move her arm. Pt. is able to do most daily tasks and ADls, but is hopeful to reduce her symptoms and increase her B shoulder strength in order ot complete all recreational and household activities without limitations. - Pain Cervical spine Pain Intensity (Out of 10): 1 Comment: L sided R shoulder Pain Intensity (Out of 10): 4 Pain Intensity Range: 1, 7 Comment: increased to 7/10 with R shoulder motions L shoulder Pain Intensity (Out of 10): 1 Pain Intensity Range: 0, 6 - Objective POSTURE: Pt. has FH posture, rounded shoulders. Pt. is able to correct rounded shoulder posture, but has difficulty improving neck posture. PALPATION: Pt. has increased tenderness of B shoulder, mostly anterior. Pt. has L sided cervical spine pain, erector spinea. No spinous process pain. NEURO: pt. has normal Bilat DTR of BUEs, normal sensation, no N/T this date, but patient reports having frequent LUE tingling (throughout). ROM: R shoulder- AROM- flexion 130deg aberrant motion, abd 100deg, functional ER C2 aberrant motion, functional IR L5. PROM- flexion 145deg, abd 130deg, ER at side 30deg. IR not tested. L shoulder- PROM- flexion 170deg, abd 170deg, ER at 90deg 90deg, IR 50deg. AROM- flexion 170deg, abd 170deg, functional ER C4, functional IR L3. Cervical spine- flexion mod loss, increase mod loss increase NW, SB mod loss bilat NE, rotatino mod loss bilat slight increase NW on L side with R rotation. MMT: RUE- wrist 5/5 throughout; elbow 5/5 throughout; shoulder- flexion 4-/5, abd 4-/5, ext 4+/5, ER 3+/5, IR 4+/5. L UE- wirst/elbow 5/5 throughout; shoulder- flexion 4+/5, abd 4/5, ext 5/5, ER 4+/5, IR 5-/5. Cervical iso- 5/5 throughout no pain. - Special Tests C/S Radiculapathy - Left Spurlings: Negative C/S Radiculapathy - Right Spurlings: Negative C/S Radiculapathy - Left Cervical distraction: Negative C/S Radiculapathy - Right Cervical distraction: Negative C/S Radiculapathy - Left Relief test: Negative C/S Radiculapathy - Right Relief test: Negative Cervical Sitting: Protrusion - Mechanical Response: No effect Cervical Sitting: Protrusion - Symptoms During Testing: No effect Cervical Sitting: Protrusion - Symptoms After Testing: No effect Cervical Sitting: Retraction - Mechanical Response: No effect Cervical Sitting: Retraction - Symptoms During Testing: Increases Cervical Sitting: Retraction - Symptoms After Testing: No worse Cervical Sitting: Retraction-Extension - Mechanical Response: No effect Cerv Sitting: Retraction-Extension - Symptoms During Testing: Increases Cerv Sitting: Retraction-Extension - Symptoms After Testing: No worse Cervical Sitting: Flexion - Mechanical Response: No effect Cervical Sitting: Flexion - Symptoms During Testing: No effect Cervical Sitting: Flexion - Symptoms After Testing: No effect - Goals Goal 1:: LTG: Pt. to be I with HEP. Goal Time Frame: 4-6 Weeks Goal 2:: STG: Pt. to sleep throughout the night without increase in neck or B shoulder pain. Goal Time Frame: 2-4 Weeks Goal 3:: LTG: Pt. to have incerased cervical and R shoulder AROM increased by 25% in all directions. Goal Time Frame: 4-6 Weeks Goal 4:: LTG: pt. to have increased B shoulder strength increased by 1/2 grade of all effected musculature. Goal Time Frame: 4-6 Weeks Goal 5:: LTG: pt. to demonstrate improved posture incuding reduced cervical protraction and reduced B rounded shoulder positioning throughout PT session, indicating increased postural awareness. Goal Time Frame: 4-6 Weeks Goal 6:: LTG: pt. to reports reduced N/T in LUE by 25% in frequency. Goal Time Frame: 4-6 Weeks - Rehabilitation Potential Physical Therapy Diagnosis: Pt. has signs and symptoms consistent DDD of cervical spine, R Shoulder Reverse total arthoplasty with subsequent R UE weakness, limited ROM, decreased postural awareness, increased LUE tingling. Pt. would benefit from PT to address above limitations, progressing R shoulder strength, postural strengthening and cervical ROM as able in order to get back to all recreational activities without limitations. Rehabilitation Potential: Good - Anticipated Interventions Patient/Client Instruction: Educate patient on: Condition, Plan of Care, Risk Factors, Benefits of Fitness Program For the Purpose of:: To improve decision making, To facilitate caregiver knowledge, To improve self management, To prevent re-injury, To improve ability to perform tasks related to life management, To improve tolerance to ADL's Therapeutic Exercise to Include: Strength training, Power training, Body mechanics, Flexibilty training, Gait and locomotor training, In an aquatic setting, Passive ROM, Active ROM, Dynamic Lumbar Stabilization, Stevie Exercises, Scapular Strength/Stabilization For the Purpose of:: To decrease pain, To decrease swelling/inflammation, To increase ROM, To improve nutrient delivery to tissue, To increase oxygenation perfusion, To improve muscle performance and motor function, To improve ability to perform ADL's, To increase tolerance to activity/condition/position, To improve performance and independence with ADL's, To improve ability of physical actions for home/community/work/leisure, To improve health of tissue, To decrease soft tissue restriction, To increase flexibility/ROM Thank you for the opportunity to evaluate your patient. For Medicare and Medicare HMO plans, please review the plan of care and approve it. It will need to be FAXED BACK to us at [phone] for Medicare purposes. For Medicare only, by signing this I certify the plan of care. Please let me know if there are questions or concerns regarding this plan of care. Physician Signature: Date:
== END 2020-04-23 19:00 | disposition home or self-care (01) ==
LOC: PT 11:00
PROVIDERS: PCP Family Medicine; Referring Provider Orthopaedic Surgery; Visit Provider Orthopaedic Surgery
DX: Z96.611 Presence of right artificial shoulder joint (principal)
CPT/HCPCS: 97113; 97161

== ENCOUNTER → 2020-05-08 12:08 | Outpatient (CLI) | payer MEDICARE, OTHER, SELFPAY ==
[2018-03-28 12:55] VITALS: BMI 56.3
[2020-05-08 15:30] LABS: Absolute Neutrophil Count 4.5 X10^3/uL (2.0-7.7); Basophil# 0.08 X10^3/uL; Basophil% 1.1 % (0-1); Eosinophils% 4.3 % (0-5); Hematocrit 41.6 % (37-47); Hemoglobin 13.1 g/dL (12.0-15.0); Lymphocyte % 24.1 % (19-41); Mean Corp Hgb Conc 31.5 g/dL (32-36); Mean Corpuscular Hgb 30.8 pg (27.0-32.0); Mean Corpuscular Volume 97.7 fL (81-99); Mean Platelet Vol. 10.1 fl (6.2-12.0); Monocyte# 0.46 X10^3/uL; Monocyte% 6.5 % (0-10); NRBC Flagged by Analyzer 0 % (0-5); Neutrophil # 4.49 X10^3/uL (2.7-7.7); Neutrophil % 63.7 % (47-70); Platelet Count 269 K/mm3 (150-450); RBC Distribution Width CV 13.7 % (11.6-14.6); RBC Distribution Width SD 49.3 fl (35.1-43.9); Red Blood Count 4.26 M/mm3 (4.2-5.4); White Blood Count 7.1 K/mm3 (4.4-11.0)
[2020-05-08 15:40] LABS: ALB/GLOB Ratio 1.2 RATIO (0.9-2.4); AST(SGOT) 27 U/L (15-37); Alanine Aminotransfer ALT/SGPT 36 U/L (13-56); Albumin, Serum 3.9 g/dL (3.2-5.0); Alkaline Phosphatase 92 U/L (45-117); Anion Gap 7 (5-15); BUN 36 mg/dL (7-18); BUN/Creat Ratio 22.1 RATIO (10-20); Chloride 107 mmol/L (98-107); Creatinine, Serum 1.63 mg/dL (0.55-1.02); EST Glomerular Filtration Rate 33 mL/min (>60); Est Glom Filt Rate - Afr Amer 40 mL/min (>60); Globulin 3.3 g/dL (2.2-4.2); Glucose 152 mg/dL (74-106); Lipase 561 U/L (73-393); Potassium 4.3 mmol/L (3.5-5.1); Protein, Total 7.2 g/dL (6.4-8.2); Sodium Level 138 mmol/L (136-145)
== END ==
PROVIDERS: PCP Family Medicine; Visit Provider Family Medicine
DX: R10.9 Unspecified abdominal pain (principal)
CPT/HCPCS: 36415; 80053; 83690; 85025

== ENCOUNTER → 2020-05-12 13:09 | Outpatient (CLI) | payer MEDICARE, OTHER, SELFPAY ==
[2018-03-28 12:55] VITALS: BMI 56.3
[2019-11-27 14:27] VITALS: BMI 55.7
[2020-05-12 16:17] LABS: Vitamin B12 384 pg/mL (211-911)
[2020-05-12 16:27] LABS: ALB/GLOB Ratio 1.3 RATIO (0.9-2.4); AST(SGOT) 18 U/L (15-37); Alanine Aminotransfer ALT/SGPT 29 U/L (13-56); Alkaline Phosphatase 92 U/L (45-117); Anion Gap 8 (5-15); BUN 59 mg/dL (7-18); BUN/Creat Ratio 30.1 RATIO (10-20); Calcium,Total 8.8 mg/dL (8.5-10.1); Chloride 105 mmol/L (98-107); Creatinine, Serum 1.96 mg/dL (0.55-1.02); EST Glomerular Filtration Rate 27 mL/min (>60); Est Glom Filt Rate - Afr Amer 32 mL/min (>60); Globulin 3.1 g/dL (2.2-4.2); Glucose 172 mg/dL (74-106); Potassium 4.3 mmol/L (3.5-5.1); Protein, Total 7.1 g/dL (6.4-8.2); Sodium Level 136 mmol/L (136-145)
[2020-05-15 05:28] LABS: Rapid Plasmin Reagin (RPR) NONREACTIVE (NONREACTIVE)
== END ==
LOC: LAB.FUTURE 13:11 → MTLAB 13:20
PROVIDERS: PCP Family Medicine; Referring Provider Family Medicine; Visit Provider Family Medicine
DX: N18.3 Chronic kidney disease, stage 3 (moderate) (principal); R44.1 Visual hallucinations
CPT/HCPCS: 36415; 80053; 82607; 86592

== ENCOUNTER → 2020-05-13 12:00 | Outpatient (CLI) | payer MEDICARE, OTHER, SELFPAY ==
[2018-03-28 12:55] VITALS: BMI 56.3
[2020-05-13 12:11] LABS: Mucous, Urine 0 SEEN /hpf (<or=2+); Red Blood Cells-Urine 0 SEEN /hpf (0-5)
[2020-05-13 12:47] LABS: Absolute Lymphocyte Count 1.59 X10^3/uL (0.83-4.51); Basophil# 0.06 X10^3/uL; Basophil% 1.1 % (0-1); Eosinophil# 0.29 X10^3/uL; Eosinophils% 5.4 % (0-5); Hematocrit 39.8 % (37-47); Lymphocyte # 1.59 X10^3/ul (4.0); Lymphocyte % 29.6 % (19-41); Mean Corp Hgb Conc 32.7 g/dL (32-36); Mean Platelet Vol. 9.7 fl (6.2-12.0); Monocyte# 0.44 X10^3/uL; Monocyte% 8.2 % (0-10); NRBC Flagged by Analyzer 0 % (0-5); Neutrophil # 2.98 X10^3/uL (2.7-7.7); Neutrophil % 55.3 % (47-70); Platelet Count 246 K/mm3 (150-450); RBC Distribution Width CV 13.5 % (11.6-14.6); RBC Distribution Width SD 47.3 fl (35.1-43.9); Red Blood Count 4.19 M/mm3 (4.2-5.4); White Blood Count 5.4 K/mm3 (4.4-11.0)
[2020-05-13 13:04] LABS: Color, Urine Straw (Yellow); Glucose, Dipstick Normal (Normal); Ketone-Dipstick Negative (Negative); Leukocyte Esterase-Dipstick 25 /ul (Negative); Nitrite-Dipstick Negative (Negative); Occult Blood-Urine Negative /ul (Negative); Protein-Dipstick Negative (Negative); Specific Gravity, Urine 1.015 (1.002-1.030); Urine Bilirubin Dipstick Negative (Negative); Urine Clarity Clear (Clear); Urine Urobilinogen Normal (Normal)
[2020-05-13 13:05] LABS: ALB/GLOB Ratio 1.3 RATIO (0.9-2.4); AST(SGOT) 18 U/L (15-37); Alanine Aminotransfer ALT/SGPT 27 U/L (13-56); Alkaline Phosphatase 92 U/L (45-117); Anion Gap 7 (5-15); BUN 56 mg/dL (7-18); BUN/Creat Ratio 28.4 RATIO (10-20); CRP 6.52 mg/L (0.0-3.0); Calcium,Total 9.1 mg/dL (8.5-10.1); Chloride 106 mmol/L (98-107); Creatinine, Serum 1.97 mg/dL (0.55-1.02); EST Glomerular Filtration Rate 27 mL/min (>60); Est Glom Filt Rate - Afr Amer 32 mL/min (>60); GGTP 11 U/L (5-55); Globulin 3.1 g/dL (2.2-4.2); Glucose 177 mg/dL (74-106); Lipase 462 U/L (73-393); Potassium 4.4 mmol/L (3.5-5.1); Protein, Total 7.1 g/dL (6.4-8.2); Sodium Level 137 mmol/L (136-145)
[2020-05-13 13:12] LABS: Bacteria 0 SEEN /hpf (None Seen); Renal Epithelial Cells 0-5 SEEN /hpf (0-5); Squamous Epithelial Cells - UA 0-5 SEEN /hpf (5-10); White Blood Cells 0-5 SEEN /hpf (0-5)
[2020-05-14 20:31] LABS: H.Pylori Breath Test Negative (Negative)
== END ==
PROVIDERS: PCP Family Medicine; Visit Provider Family Medicine
DX: E11.22 Type 2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with diabetic chronic kidney disease (principal); N18.3 Chronic kidney disease, stage 3 (moderate); R10.11 Right upper quadrant pain; E86.0 Dehydration
CPT/HCPCS: 36415; 80053; 81001; 82977; 83013; 83690; 85025; 86140

== ENCOUNTER → 2020-05-21 13:26 | Outpatient (CLI) | payer MEDICARE, OTHER, SELFPAY ==
[2020-05-13 13:37] VITALS: BMI 54.3; BMI 56.3
--- NOTE | 2020-05-21 13:29 | CT_ITS ---
STUDY: CT ABDOMEN AND PELVIS WITHOUT CONTRAST REASON FOR EXAM: Female, 69 years old. EPIGASTRIC PAIN, RUQ PAIN, PANCREATITIS 2 WEEKS AGO RADIATION DOSAGE (If Supplied By Facility): CTDIvol = ( 24.18 ) mGy, DLP = ( 1177.85 ) mGycm TECHNIQUE: Transaxial images were obtained from the dome of the diaphragm to the symphysis pubis without oral contrast, and without intravenous contrast. Sagittal and coronal images were reconstructed. Individualized dose optimization techniques were used for this CT. COMPARISON: None. FINDINGS: Minimal increased markings at the lung bases suggestive of underlying atelectasis and/or scarring. The visualized portions of the heart are within normal limits. Normal liver. The patient is status post cholecystectomy. There are multiple benign calcified granulomata of the spleen. Normal pancreas. Normal bilateral adrenal glands. Normal right kidney. Normal left kidney. Normal visualized stomach. Normal small intestine. There are multiple colonic diverticula consistent with diverticulosis. The appendix is visualized and appears normal. There is diffuse atherosclerotic calcification of the abdominal aorta and its major visceral branches, without a demonstrated aneurysm. Normal inferior vena cava. Normal retroperitoneum. The bladder is empty. Diffuse bladder wall thickening although this most likely secondary to lack of adequate distention. Evidence of prior mesh repair of the lower anterior abdominal wall hernia. There are diffuse degenerative changes of the visualized lumbar spine. CT/Abdomen/Pelvis without Cont IMPRESSION: No acute abnormality is seen. Electronically Signed: Librado Lay, at 14:53 EDT , Service support ,
== END ==
PROVIDERS: PCP Family Medicine; Referring Provider Family Medicine; Visit Provider Family Medicine
DX: R74.8 Abnormal levels of other serum enzymes (principal); R10.11 Right upper quadrant pain; R10.13 Epigastric pain
CPT/HCPCS: 74176

== ENCOUNTER → 2020-06-03 12:33 | Outpatient (CLI) | payer MEDICARE, OTHER, SELFPAY ==
[2020-05-13 13:37] VITALS: BMI 54.3; BMI 56.3
[2020-06-03 11:36] VITALS: BMI 54.3
[2020-06-03 14:02] LABS: Thyroid Stim Hormone (TSH) 0.79 uIU/mL (0.358-3.74)
== END ==
PROVIDERS: Nurse Practitioner Family; PCP Family Medicine; Referring Provider Family Medicine; Visit Provider Family Medicine
DX: E11.9 Type 2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without complications (principal); R74.8 Abnormal levels of other serum enzymes; R53.83 Other fatigue
CPT/HCPCS: 36415; 84443

== ENCOUNTER → 2020-06-17 14:45 | Outpatient (CLI) | payer MEDICARE, OTHER, MEDICAID, SELFPAY ==
[2020-05-13 13:37] VITALS: BMI 56.3
[2020-06-17 13:51] VITALS: BMI 55.5
== END ==
PROVIDERS: PCP Family Medicine; Referring Provider Surgery; Visit Provider Surgery
DX: R19.7 Diarrhea, unspecified (principal); R10.9 Unspecified abdominal pain
CPT/HCPCS: 82274; 82705; 83630; 87177; 87209; 87493; 87506

== ENCOUNTER → 2020-06-18 | Outpatient (CLI) | payer MEDICARE, OTHER, SELFPAY ==
[2020-05-13 13:37] VITALS: BMI 56.3
[2020-06-17 13:51] VITALS: BMI 55.5
== END | disposition home or self-care (01) ==
LOC: LABSPEC 06-19 06:28
PROVIDERS: PCP Family Medicine; Referring Provider Surgery; Visit Provider Surgery
DX: R19.7 Diarrhea, unspecified (principal); R10.9 Unspecified abdominal pain
CPT/HCPCS: 82274; 83630; 87177; 87209

== ENCOUNTER 2020-06-30 05:19 | Day surgery (SDC) | payer MEDICARE, OTHER, SELFPAY ==
[2020-05-13 13:37] VITALS: BMI 56.3
[2020-06-17 13:51] VITALS: BMI 55.5
[2020-06-30] VITALS (8 sets, daily range): BP systolic 78–144; BP diastolic 36–71; PULSE 52–60; RESP 16; TEMP 35.9–36.3; O2SAT 95–97; BMI 56.8
--- NOTE | 2020-06-30 05:55 | PCM.HP.BLA ---
Problem List (1) Diarrhea Status: Acute Qualifiers: History and Physical Date of Admission: 06/30/20 Intake Visit Reasons: C-Scope Chief Complaint: abd pain Peer Support Specialist Required: No Is patient in pain?: Yes (abd pain) Allergies naproxen [From Naprosyn] Allergy (Severe, Verified 06/17/20 13:49) INTERNAL BLEEDING prednisone Allergy (Severe, Verified 06/17/20 13:49) COMBINATION WITH NAPROXEN CAUSED INTERNAL BLEEDING exenatide [From Byetta] Adverse Reaction (Intermediate, Verified 06/17/20 13:49) Unknown ezetimibe [From Zetia] Adverse Reaction (Intermediate, Verified 06/17/20 13:49) Unknown fluticasone [From Flonase] Adverse Reaction (Intermediate, Verified 06/17/20 13:49) Headaches amoxicillin [From Augmentin] Adverse Reaction (Unknown, Verified 06/17/20 13:49) Headache clavulanic acid [From Augmentin] Adverse Reaction (Unknown, Verified 06/17/20 13:49) Headache clorazepate dipotassium [From Tranxene T-Tab] Adverse Reaction (Unknown, Verified 06/17/20 13:49) Unknown indomethacin [From Indocin] Adverse Reaction (Unknown, Verified 06/17/20 13:49) Unknown ketoprofen [From Oruvail] Adverse Reaction (Unknown, Verified 06/17/20 13:49) Unknown nizatidine [From Axid] Adverse Reaction (Unknown, Verified 06/17/20 13:49) Unknown ranitidine [From Zantac] Adverse Reaction (Unknown, Verified 06/17/20 13:49) Unknown rosuvastatin [From Crestor] Adverse Reaction (Unknown, Verified 06/17/20 13:49) Unknown sertraline [From Zoloft] Adverse Reaction (Unknown, Verified 06/17/20 13:49) Unknown sulfamethoxazole [From Septra] Adverse Reaction (Unknown, Verified 06/17/20 13:49) Unknown trimethoprim [From Septra] Adverse Reaction (Unknown, Verified 06/17/20 13:49) Unknown NSAIDS (Non-Steroidal Anti-Inflamma Adverse Reaction (Verified 06/17/20 13:49) Other naldecon Adverse Reaction (Unknown, Uncoded 06/17/20 13:49) Unknown Medications allopurinol 100 mg tablet 100 mg PO BID tab 03/15/18 [History Confirmed 06/03/20] Clopidogrel Bisulfate [Clopidogrel] 75 mg PO DAILY 09/04/19 [History Confirmed 06/17/20] Citalopram [Celexa] 20 mg PO DAILY tab 09/14/19 [Rx Confirmed 06/17/20] Metoprolol Tartrate [Lopressor (beta geovanna)] 25 mg PO BID tab 09/14/19 [Rx Confirmed 06/17/20] buPROPion XL [Wellbutrin Xl] 150 mg PO DAILY tablet.xl 09/14/19 [Rx Confirmed 06/17/20] Furosemide [Lasix] 40 mg PO DAILY 11/14/19 [History Confirmed 06/17/20] Liraglutide [Victoza] 1.8 mg SQ DAILY 11/14/19 [History Confirmed 06/17/20] Lisinopril [Prinivil] 20 mg PO DAILY 11/14/19 [History Confirmed 06/17/20] Pantoprazole Sodium [Protonix] 20 mg PO DAILY 11/14/19 [History Confirmed 06/17/20] memantine 5 mg tablet 5 mg PO BID #60 tab 06/10/20 [Rx Confirmed 06/17/20] repaglinide 1 mg tablet 1 mg PO DAILY #360 tab 06/10/20 [Rx Confirmed 06/17/20] donepezil 10 mg tablet 5 mg PO QHS tab 06/17/20 [History] [facility] Medical History Gout (Chronic) Osteoarthritis (Chronic) Presence of stent in coronary artery (Chronic) Pure hypercholesterolemia (Chronic) Essential hypertension (Chronic) CKD (chronic kidney disease) stage 3, GFR 30-59 ml/min (Chronic) GERD (gastroesophageal reflux disease) (Chronic) Sleep apnea (Chronic) Presence of stent in coronary artery (Chronic ~03/28/18) Atherosclerotic heart disease of [place] coronary artery without angina pectoris (Chronic) Type 2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(Chronic) Black tarry stools (Resolved) Surgical History History of cholecystectomy (Resolved) Hx of appendectomy (Resolved) History of arthroscopy of right shoulder (Resolved) Hx of arthroscopy of right knee (Resolved) History of carpal tunnel surgery (Resolved) Presence of coronary angioplasty implant and graft (Chronic ~03/28/18) Family History Mother Hypertension High cholesterol CAD (coronary artery disease) Diabetes Anemia Arthritis History of blood clots Myocardial infarction, Onset Age: 69 Heart disease Father Angina pectoris Alzheimer disease Social History (Updated 06/17/20 @ 15:[address] Titus Joiner MD) Smoking Status: Never smoker Electronic Cigarette Use: not used second hand exposure: No alcohol intake: current alcohol intake frequency: holidays/special occasions only substance use type: does not use caffeine: Yes Type: coffee Number of servings: 3 frequency: does not exercise HPI HPI HPI: JACEK LOPEZ, is a 69 F who presents to the office today for surgical consultation regarding intractable diarrhea and right mid abdominal pain and nausea and bloating and gas. The patient is referred by her primary care physician Dr. Sachin Almanza and written copy my surgical consult recommendations will be returned to him. She claims that for several months she has had a firmness in the right mid abdomen. She has had nausea bloating gas and watery profuse diarrhea. She is not aware of any unusual food intake. She has had absolutely no weight loss with a us event. She has not yet had stool analysis checked. At the [facility] on May 21, [address] scan of the abdomen and pelvis done without contrast. There is evidence of prior mesh repair of the low anterior abdominal wall. There is no evidence of any recurrent hernia. On May 13, 2020 her white blood cell count was 5.4 with a hemoglobin 13 hematocrit 39.8 platelet count 246,000 with a normal differential. Glucose was 177. BUN 56 with a creatinine of 1.97 and an estimated GFR of 27. Liver function tests were normal. Lipase was elevated at 462 with high normal being 393. C-reactive protein was elevated to 6.52. It is of note that is recent as February 09, 2019 because concerns about black tarry stools I did a combined upper and lower endoscopy for her. The upper endoscopy on biopsy showed some mild chronic gastritis. Distal esophagus was unremarkable. H. pylori was negative. She had tubular adenoma of the cecum and a tubular adenoma of the mid a sending colon. Random colonic biopsies were not obtained at that time but on the specimen submitted there was no evidence of microcytic colitis. The patient denies seeing any mucus or bright red blood or black tarry stools currently. She is claiming it is a diffuse watery diarrhea HPI HPI HPI: JACEK LOPEZ, is a 69 F who presents to the office today for ROS General General: Yes fatigue; no weight change, appetite, colon cancer, breast cancer or weakness HEENT HEENT: No difficulty swallowing, eye injury, eye surgery, swollen glands or hoarseness Endo Endocrine: Yes diabetes mellitus; no thyroid disease, thyroid cancer, Hair loss, heat intolerance or cold intolerance Skin Skin: No rash or changing moles Breast Breast: No left breast lump, right breast lump, nipple discharge, breast pain, abnormal mammogram, abnormal US or breast enlargement Musc Musculoskeletal: Yes arthritis; no back problems, rheumatoid arthritis, gout or joint pain Cardio Cardiovascular: Yes high blood pressure, heart attack and heart stent; no murmur, pacemaker, heart disease, atrial fibrillation, palpitations, shortness of breat with exertion or chest pain Psych Psychiatric: Yes depression and anxiety; no hearing voices Resp Respiratory: Yes shortness of breath, Yes sleep apnea, No cough, No COPD, No asthma, No emphysema, No wheezing Gastro Gastrointestinal: Yes abdominal pain, Yes nausea or vomiting, Yes diarrhea, No constipation, No blood in stool, Yes acid reflux, No hemorrhoids, No ulcers, No gallbladder problem, No black,tarry stools Tom Hematologic: Yes blood thinners, No blood disorders, No bleeding, No anemia, No blood clots Neuro Neurologic: No system reviewed and no additional complaints, except as docu, No as per HPI, No abnormal walking, No abnormal hearing, No abnormal movements, No abnormal speech, No behavioral changes, No burning sensations, No confusion, No seizure-like activity, No unsteadiness, No dizziness, No localized weakness, No frequent falls, No headache(s), No lack of coordination, No loss of vision, No memory loss, Yes numbness, No other visual disturbances, No radiating pain, No restless legs, No sensory deficit, No fainting, Yes tingling, No tremor(s), No weakness, No other Exam Const General: cooperative, comfortable, no acute distress Nutritional Appearance: obese morbidly obese Orientation: alert, awake HENAK Head: normal to inspection Chest Breast Palpation: No nipple discharge Other: Kyphosis Resp Effort & Inspection: normal respiratory effort Auscultation: clear to auscultation bilaterally Cardio Rate: regular rate Rhythm: regular rhythm Heart Sounds: no murmurs GI Other: Notably overweight, not able to palpate any masses, and no guarding, no obvious hernias, bowel sounds present not remarkable Neuro Cognition: normal cognition Extrem Other: Bilateral lower extremities are large but I cannot palpate any cords or tenderness Psych Affect: normal affect Assessment & Plan Problems 1. Diarrhea, unspecified type R19.7 Plan Diarrhea of undetermined etiology. I recommend stool analysis for C&S O&P C. difficile and fecal fat. On laboratory patient had a mild elevation of the lipase. Also recommend Covid-19 checking his diarrhea can be symptom. Pending the results of that evaluation if it is unremarkable then I recommend a colonoscopy for random colonic biopsies looking for microcytic colitis. This diarrhea apparently has been ongoing for 2 to 3 months. Lower suspicion that is an infectious colitis. Her abdominal exam is not remarkable albeit though challenged because of her BMI of 55.5. As noted with the fecal fat we will look for pancreatic insufficiency. She has had an opportunity to ask and have questions answered. I appreciate the opportunity of assisting with her surgical care. We will schedule and proceed as noted. Copy: Dr. Sachin Joiner M.D., F.A.C.S. I have re-examined the patient. There are no clinical changes since date of exam. Procedure Criteria Procedure Type: Elective COVID Risk Discussion: The surgeon/proceduralist and patient have discussed in detail the risk of exposure to and/or potential harm posed by the COVID-19 virus with having a surgery/procedure at this time versus the risk of delaying the surgery/procedure. It is not possible to know either the risk of delaying the surgery or procedure or chance of getting an infection with perfect accuracy, but a joint decision was made between the patient and the surgeon/proceduralist to proceed at this time with the scheduled surgery/procedure as indicated on the consent form.
[2020-06-30 06:20] LABS: Bedside Glucose 106 mg/dL (70-110)
[2020-06-30] MEDS: Lactated Ringers 1,000 ML 100 ML IV (06:23)
--- NOTE | 2020-06-30 06:30 | COLBX_PTH ---
PATIENT: JACEK LOPEZ LOC: EN U#:[id number] AGE/SX: 69/F ROOM: RE06/30/[address]: Dr. Titus Joiner MD : 1950 BED: DIS: 06/30/2020 SPEC #: [id number] RECD: 06/30/20 11:52 STATUS: SEPIDEH MADELIN #: [id number] GUDELIA: 06/30/20 06:[address]: Titus Joiner DEPT: SURGICAL PATHOLOGY RECD BY: Mela Ruano ENTERED: 06/30/20 12:18 SP TYPE: COLON BX OTHR DR: Dr. Sachin Almanza DO Tissues: A - COLON BIOPSY B - Ascending colon Procedures: Trichrome (control) Special Stain Group II Surgery Specimen Level IV HEADER OPERATION: Colonoscopy (MOD) PRE-OP DIAGNOSIS: Diarrhea TISSUE SUBMITTED: A - Random colonic biopsy, B - Proximal ascending polyp (cold snare) MICROSCOPIC DIAGNOSIS A. Colon, random biopsy: No pathologic change. No evidence of colitis. See comment. B. Proximal ascending colon polyp, biopsy: Fragments of tubulovillous adenoma. AM:michelle 07/01/20 COMMENT A. Trichrome stain with matched control was used in the evaluation of this case. MICROSCOPIC DESCRIPTION Slides are reviewed. GROSS DESCRIPTION A - Received in fixative is one container labeled with the patient's name and designated random colon biopsy. The specimen consists of multiple irregular fragments of light chirinos soft tissue that in aggregate measure 1.5 x 0.3 x 0.1 cm. The specimen is totally submitted in one cassette. B - Received in fixative is one container labeled with the patient's name and designated proximal ascending polyp. The specimen consists of multiple irregular fragments of light chirinos soft tissue that in aggregate measure 2.5 x 0.8 x 0.1 cm. The specimen is totally submitted in one cassette. / AM:michelle 06/30/20 TC:5 CPT: 58184 x2, [id number]
--- NOTE | 2020-06-30 07:04 | OP.CCLET_ITS ---
06/30/2020 Sachin Almanza [address] [facility] [place] [address] Re : Colonoscopy procedure for Paula Olson Dear Dr. Almanza This procedure was performed on Tuesday, June 30, 2020. My impressions and recommendations are as follows: Impressions : - Preparation of the colon was fair. - Hemorrhoids found on perianal exam. - One 15 mm polyp in the proximal ascending colon, removed with a cold snare. Polyp resection was incomplete, and the resected tissue was partially retrieved. - One 15 mm polyp in the proximal ascending colon, removed piecemeal using a cold snare. Polyp resection was incomplete, and the resected tissue was partially retrieved. Clip was placed. Biopsied. - Diverticulosis in the sigmoid colon. Recommendations : - Discharge patient to home. - Resume previous diet. - Continue present medications. - Repeat colonoscopy in 1 year for surveillance based on pathology results. - Telephone my office for pathology results in 1 week. My findings are described in the full procedure note, which is enclosed. If I can be of further assistance, please feel free to contact me at Doctor phone number(s): Work: . Sincerely, Titus Joiner MD 06/30/2020 7:03:23 AM This report has been signed electronically.
--- NOTE | 2020-06-30 07:04 | OP.COLON_ITS ---
Patient Name: Paula Olson Procedure Date: 06/30/2020 6:17 AM Date of : 1950 Age: 69 Procedure: Colonoscopy Indications: Clinically significant diarrhea of unexplained origin Providers: Titus Joiner MD Referring MD: Sachin Almanza Medicines: Midazolam 3.5 mg IV, Meperidine 75 mg IV Patient Profile: Last Colonoscopy: January 2019. Complications: No immediate complications. Procedure: Pre-Anesthesia Assessment: - Prior to the procedure, a History and Physical was performed, and patient medications and allergies were reviewed. The patient's tolerance of previous anesthesia was also reviewed. The risks and benefits of the procedure and the sedation options and risks were discussed with the patient. All questions were answered, and informed consent was obtained. Prior Anticoagulants: The patient has taken no previous anticoagulant or antiplatelet agents. ASA Grade Assessment: II - A patient with mild systemic disease. After reviewing the risks and benefits, the patient was deemed in satisfactory condition to undergo the procedure. After I obtained informed consent, the scope was passed under direct vision. Throughout the procedure, the patient's blood pressure, pulse, and oxygen saturations were monitored continuously. The colonoscope was introduced through the anus and advanced to the cecum, identified by appendiceal orifice and ileocecal valve. The colonoscopy was performed without difficulty. The patient tolerated the procedure well. The quality of the bowel preparation was fair. The ileocecal valve and the appendiceal orifice were photographed. Moderate Sedation: Moderate (conscious) sedation was personally administered by the endoscopist. The following parameters were monitored: oxygen saturation, heart rate, blood pressure, and response to care. Total physician intraservice time was 15 minutes. Scope In: 6:30:52 AM Scope Withdrawal Time 0 hours 17 minutes 20 seconds Scope Out: 6:52:04 AM Total Procedure Duration Time 0 hours 21 minutes 12 seconds Findings: Hemorrhoids were found on perianal exam. . A 15 mm polyp was found in the proximal ascending colon. The polyp was sessile. The polyp was removed with a piecemeal technique using a cold snare. Polyp resection was incomplete, and the resected tissue was partially retrieved. To prevent bleeding post-intervention, one hemostatic clip was successfully placed. There was no bleeding at the end of the procedure. Biopsies for histology were taken with a cold forceps from the entire colon for evaluation of microscopic colitis. Multiple small-mouthed diverticula were found in the sigmoid colon. Impression: - Preparation of the colon was fair. - Hemorrhoids found on perianal exam. - One 15 mm polyp in the proximal ascending colon, removed with a cold snare. Polyp resection was incomplete, and the resected tissue was partially retrieved. - One 15 mm polyp in the proximal ascending colon, removed piecemeal using a cold snare. Polyp resection was incomplete, and the resected tissue was partially retrieved. Clip was placed. Biopsied. - Diverticulosis in the sigmoid colon. Recommendation: - Discharge patient to home. - Resume previous diet. - Continue present medications. - Repeat colonoscopy in 1 year for surveillance based on pathology results. - Telephone my office for pathology results in 1 week. Procedure Code(s): --- Professional --- 30623, Colonoscopy, flexible; with removal of tumor(s), polyp(s), or other lesion(s) by snare technique 05824, 59, Colonoscopy, flexible; with biopsy, single or multiple 96397, 59, Moderate sedation services provided by the same physician or other qualified health adult daycare coordinator performing the diagnostic or therapeutic service that the sedation supports, requiring the presence of an independent trained observer to assist in the monitoring of the patient's level of consciousness and physiological status; initial 15 minutes of intraservice time, patient age 5 years or older Diagnosis Code(s): --- Professional --- K64.9, Unspecified hemorrhoids D12.2, Benign neoplasm of ascending colon R19.7, Diarrhea, unspecified K57.30, Diverticulosis of large intestine without perforation or abscess without bleeding CPT copyright 2017 [employer]. All rights reserved. The codes documented in this report are preliminary and upon service restorer emergency review may be revised to meet current compliance requirements. Titus Joiner MD 06/30/2020 7:03:23 AM This report has been signed electronically. Number of Addenda: 0 Note Initiated On: 06/30/2020 6:17 AM
== END 2020-06-30 07:44 | disposition home or self-care (01) ==
LOC: EN 05:23 → ACINP 05:23 → AC 06:02
PROVIDERS: PCP Family Medicine; Referring Provider Family Medicine; Visit Provider Surgery
PROC: 0DJD8ZZ Inspection of Lower Intestinal Tract, Via Natural or Artificial Opening Endoscopic (ICD-10-PCS; CPT 45378; principal; 2020-06-30 06:25)
DX: D12.2 Benign neoplasm of ascending colon (principal); K57.30 Diverticulosis of large intestine without perforation or abscess without bleeding; K64.9 Unspecified hemorrhoids; R19.7 Diarrhea, unspecified; Z11.59 Encounter for screening for other viral diseases; I12.9 Hypertensive chronic kidney disease with stage 1 through stage 4 chronic kidney disease, or unspecified chronic kidney disease; E11.22 Type 2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with diabetic chronic kidney disease; N18.30 Chronic kidney disease, stage 3 unspecified; I25.10 Atherosclerotic heart disease of native coronary artery without angina pectoris; E78.00 Pure hypercholesterolemia, unspecified; M19.90 Unspecified osteoarthritis, unspecified site; M10.9 Gout, unspecified; G47.30 Sleep apnea, unspecified; K21.9 Gastro-esophageal reflux disease without esophagitis; E66.01 Morbid (severe) obesity due to excess calories; Z68.43 Body mass index [BMI] 50.0-59.9, adult; Z79.02 Long term (current) use of antithrombotics/antiplatelets; Z79.899 Other long term (current) drug therapy; Z95.5 Presence of coronary angioplasty implant and graft
CPT/HCPCS: 45380; 45385; 82962; 87635; 88305; 88313; 99152; 99153; C9803; J7120; U0003

== ENCOUNTER → 2020-07-08 15:14 | Outpatient (CLI) | payer MEDICARE, OTHER, SELFPAY ==
[2020-05-13 13:37] VITALS: BMI 56.3
[2020-07-08 14:14] VITALS: BMI 58.3
--- NOTE | 2020-07-08 15:25 | RAD_ITS ---
STUDY: X-RAY CHEST REASON FOR EXAM: Female, 69 years old. Dyspnea on exertion TECHNIQUE: PA and lateral views of the chest. COMPARISON: Comparison is made with prior study dated 03/08/2018. FINDINGS: Mild degree of vascular congestion and mild CHF. Increased interstitial markings at the lung bases. Blunting of the left costophrenic angle. There is mild cardiac enlargement. Calcified hilar lymph nodes. Normal visualized pulmonary arteries. There is atherosclerotic tortuosity of the aortic arch and descending thoracic aorta. There are diffuse degenerative changes of the visualized thoracic spine. Status post right total shoulder replacement. There is no demonstrated abnormality of the visualized soft tissue structures of the upper abdomen. RAD/Chest PA and Lateral IMPRESSION: Mild degree of CHF with blunting of left costophrenic angle. Electronically Signed: Librado Lay, at 12:37 EDT , Service support ,
== END ==
PROVIDERS: PCP Family Medicine; Referring Provider Physician Assistant Medical; Visit Provider Physician Assistant Medical
DX: R06.00 Dyspnea, unspecified (principal)
CPT/HCPCS: 71046

== ENCOUNTER → 2020-07-11 10:28 | Outpatient (CLI) | payer MEDICARE, OTHER, SELFPAY ==
[2020-05-13 13:37] VITALS: BMI 56.3
[2020-07-08 14:14] VITALS: BMI 58.3
[2020-07-11 11:11] LABS: Hematocrit 36.9 % (37-47); Hemoglobin 11.7 g/dL (12.0-15.0); Mean Corp Hgb Conc 31.7 g/dL (32-36); Mean Corpuscular Hgb 30.5 pg (27.0-32.0); Mean Corpuscular Volume 96.3 fL (81-99); Mean Platelet Vol. 9.5 fl (6.2-12.0); Platelet Count 223 K/mm3 (150-450); RBC Distribution Width CV 14.8 % (11.6-14.6); RBC Distribution Width SD 52.2 fl (35.1-43.9); Red Blood Count 3.83 M/mm3 (4.2-5.4); White Blood Count 6.4 K/mm3 (4.4-11.0)
[2020-07-11 11:29] LABS: Hemoglobin A1c 6.1 % (3.8-5.6)
[2020-07-11 11:36] LABS: BNP,B-Type NATRIURETIC PEPTIDE 272.7 pg/mL (0-100)
[2020-07-11 11:40] LABS: Vitamin D,25 Hydroxy 41.2 ng/mL
[2020-07-11 11:40] LABS: Albumin, Serum 3.6 g/dL (3.2-5.0); BUN 30 mg/dL (7-18); BUN/Creat Ratio 20.3 RATIO (10-20); Chloride 113 mmol/L (98-107); Creatinine, Serum 1.48 mg/dL (0.55-1.02); EST Glomerular Filtration Rate 37 mL/min (>60); Est Glom Filt Rate - Afr Amer 45 mL/min (>60); Glucose 116 mg/dL (74-106); Magnesium 1.9 mg/dL (1.6-2.6); Phosphorus 2.7 mg/dL (2.5-4.9); Sodium Level 141 mmol/L (136-145); Uric Acid 5.7 mg/dL (2.6-6.0)
[2020-07-11 12:01] LABS: Microalbumin:Creatinine Ratio 11.5 mg/g CRE (<30 mg/g CRE)
[2020-07-11 13:19] LABS: PTHIN 37.1 pg/mL (18.4-80.1)
== END ==
PROVIDERS: PCP Family Medicine; Referring Provider Physician Assistant Medical; Visit Provider Physician Assistant Medical
DX: E11.22 Type 2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with diabetic chronic kidney disease (principal); N18.4 Chronic kidney disease, stage 4 (severe); E55.9 Vitamin D deficiency, unspecified; M10.9 Gout, unspecified; R06.00 Dyspnea, unspecified; Z13.0 Encounter for screening for diseases of the blood and blood-forming organs and certain disorders involving the immune mechanism
CPT/HCPCS: 36415; 80069; 82043; 82306; 82570; 83036; 83735; 83880; 83970; 84550; 85027; 93225; 93226

== ENCOUNTER → 2020-07-22 09:06 | Outpatient (CLI) | payer MEDICARE, OTHER, SELFPAY ==
[2020-05-13 13:37] VITALS: BMI 56.3
[2020-07-08 14:14] VITALS: BMI 58.3
[2020-07-22 10:34] LABS: Anion Gap 8 (5-15); BUN 31 mg/dL (7-18); BUN/Creat Ratio 18.9 RATIO (10-20); Chloride 105 mmol/L (98-107); Creatinine, Serum 1.64 mg/dL (0.55-1.02); EST Glomerular Filtration Rate 33 mL/min (>60); Est Glom Filt Rate - Afr Amer 40 mL/min (>60); Glucose 189 mg/dL (74-106); Potassium 4.3 mmol/L (3.5-5.1); Sodium Level 138 mmol/L (136-145)
[2020-07-22 10:38] LABS: Ferritin 46 ng/mL (8-252); Iron 59 ug/dL (50-170); Iron Binding Capacity,Total 404 ug/dL (250-450); PERCENT IRON SATURATION 14.6 % (15.0-55.0)
== END ==
PROVIDERS: Physician Assistant Medical; PCP Family Medicine; Referring Provider Psychiatry & Neurology Neurology; Visit Provider Psychiatry & Neurology Neurology
DX: D64.9 Anemia, unspecified (principal); I10 Essential (primary) hypertension; I25.10 Atherosclerotic heart disease of native coronary artery without angina pectoris
CPT/HCPCS: 36415; 80048; 82728; 83540; 83550

== ENCOUNTER → 2020-07-31 06:16 | Outpatient (CLI) | payer MEDICARE, OTHER, SELFPAY ==
[2020-05-13 13:37] VITALS: BMI 56.3
[2020-07-08 14:14] VITALS: BMI 58.3
--- NOTE | 2020-07-31 09:43 | STRESSREP_ITS ---
Stress Test Report Date: 07-31-2020 Procedure: Pharmacologic stress nuclear imaging study Indications: Chest pain; dyspnea on exertion; CAD; status post PCI Consent: Per the patient Procedure: The patient underwent pharmacologic (Regadenoson) evaluation with a peak heart rate of 78 beats per minute (52%predicted maximal heart rate) and a peak blood pressure of 98/52 mmHg. The baseline ECG demonstrated sinus bradycardia. The peak pharmacologic ECG demonstrated no obvious ECG changes. There was an isolated PVC during infusion and an occasional PAC during recovery. There was no complaint of chest discomfort during pharmacologic infusion or recovery. The examination was discontinued secondary to completion of protocol. Impression: 1. Pharmacologic (Regadenoson) evaluation 2. Peak pharmacologic ECG with no obvious ECG changes. 3. Was an isolated PVC during infusion and a rare PAC during recovery. 4. Nuclear images pending Myocardial perfusion imaging study: Technique: The patient was injected with 10.5 millicuries of technetium 99m Cardiolite and subsequently rest SPECT Cardiolite nuclear imaging was obtained in the horizontal long, vertical long, and short axis views. The patient underwent pharmacologic (Regadenoson) evaluation with a peak heart rate of 78 beats per minute (52% percent predicted maximal heart rate) and a peak blood pressure of 98/52 mmHg. The patient was injected with 45.0 millicuries of technetium 99m Cardiolite and subsequently stress SPECT Cardiolite nuclear imaging was obtained in the horizontal long, vertical long, and short axis views. A gated Cardiolite study at peak stress was obtained. Interpretation: Rest and stress SPECT Cardiolite nuclear imaging status post realignment, normalization, and attenuation correction demonstrate the appearance of subtle diminished tracer uptake in portions of the distal anterior lateral/anteroapical/lateral apical segments without significant change between rest and stress. There is end systolic thickening and brightening. The gated Cardiolite study demonstrates myocardial thickening and inward wall motion. The reported LVEF is 80%. Impression: 1. Rest and stress SPECT cardiac nuclear imaging demonstrate the appearance of subtle diminished tracer uptake in portions of the distal anterior lateral/anteroapical/lateral apical segments without significant change between rest and press appearing compatible with soft tissue attenuation/artifact although an area of previous myocardial injury/infarction cannot necessarily be excluded with no myocardial perfusion changes considered diagnostic for associated stress-induced myocardial ischemia. 2. The gated Cardiolite study reports an LVEF of 80%. This note was generated with [employer] software. It may contain incorrect words, spelling, and punctuation that were not noted in checking the note before signing.
== END ==
PROVIDERS: PCP Family Medicine; Referring Provider Physician Assistant Medical; Visit Provider Physician Assistant Medical
DX: I25.10 Atherosclerotic heart disease of native coronary artery without angina pectoris (principal); R06.00 Dyspnea, unspecified; R07.89 Other chest pain
CPT/HCPCS: 78452; 93017; A9500; A4216; J2785

== ENCOUNTER 2020-08-05 08:49 | Day surgery (SDC) | payer MEDICARE, OTHER, SELFPAY ==
[2020-05-13 13:37] VITALS: BMI 56.3
[2020-07-08 14:14] VITALS: BMI 58.3
[2020-08-04 08:24] VITALS: BMI 58.3
--- NOTE | 2020-08-05 05:47 | HP_ITS ---
HPI HPI History of Present Illness Details: This is a 69-year-old female that presents here today for an urgent visit for increased SOB. She has a history of coronary artery disease status post drug-eluting stent to proximal LAD in March 2018 with mid LAD IVUS showing 50% stenosis, hypertension, hyperlipidemia, and BATSHEVA with CPAP therapy. Pt sts that she is more SOB. She feels like she is bloated and she feels that this is making her SOB. She also notes that she has gained weight. This has been going on for month. It started with abdominal pain, she is having this worked up. She also notes that is is burpy. She notes that she has a chest fullness. She does not have any palpitations. She does occasionally have swelling in her ankles. Pt has talked with Dr. Gonsalez. Intake Vital Signs 07/08/20 Height 5 ft 2 in 07/08/20 Weight: 319 lb 07/08/20 BP 149/78 H 07/08/20 Blood Pressure Location Lt brachial 07/08/20 Position Sitting 07/08/20 Respiration 18 07/08/20 Pulse 57 L 07/08/20 Pulse Source Monitor 07/08/20 Pulse Oximetry (%) 95 Intake Visit Reasons: Increased SOB Track Worker Required: No Is patient in pain?: No Allergies naproxen [From Naprosyn] Allergy (Severe, Verified 07/08/20 14:10) INTERNAL BLEEDING prednisone Allergy (Severe, Verified 07/08/20 14:10) COMBINATION WITH NAPROXEN CAUSED INTERNAL BLEEDING exenatide [From Byetta] Adverse Reaction (Intermediate, Verified 07/08/20 14:10) Unknown ezetimibe [From Zetia] Adverse Reaction (Intermediate, Verified 07/08/20 14:10) Unknown fluticasone [From Flonase] Adverse Reaction (Intermediate, Verified 07/08/20 14:10) Headaches amoxicillin [From Augmentin] Adverse Reaction (Unknown, Verified 07/08/20 14:10) Headache clavulanic acid [From Augmentin] Adverse Reaction (Unknown, Verified 07/08/20 14:10) Headache clorazepate dipotassium [From Tranxene T-Tab] Adverse Reaction (Unknown, Verified 07/08/20 14:10) Unknown indomethacin [From Indocin] Adverse Reaction (Unknown, Verified 07/08/20 14:10) Unknown ketoprofen [From Oruvail] Adverse Reaction (Unknown, Verified 07/08/20 14:10) Unknown nizatidine [From Axid] Adverse Reaction (Unknown, Verified 07/08/20 14:10) Unknown ranitidine [From Zantac] Adverse Reaction (Unknown, Verified 07/08/20 14:10) Unknown rosuvastatin [From Crestor] Adverse Reaction (Unknown, Verified 07/08/20 14:10) Unknown sertraline [From Zoloft] Adverse Reaction (Unknown, Verified 07/08/20 14:10) Unknown sulfamethoxazole [From Septra] Adverse Reaction (Unknown, Verified 07/08/20 14:10) Unknown trimethoprim [From Septra] Adverse Reaction (Unknown, Verified 07/08/20 14:10) Unknown NSAIDS (Non-Steroidal Anti-Inflamma Adverse Reaction (Verified 07/08/20 14:10) Other naldecon Adverse Reaction (Unknown, Uncoded 06/30/20 05:47) Unknown Medications allopurinol 100 mg tablet 100 mg PO BID tab 03/15/18 [History Confirmed 07/08/20] Clopidogrel Bisulfate [Clopidogrel] 75 mg PO DAILY 09/04/19 [History Confirmed 07/08/20] Citalopram [Celexa] 20 mg PO DAILY tab 09/14/19 [Rx Confirmed 07/08/20] Metoprolol Tartrate [Lopressor (beta geovanna)] 25 mg PO BID tab 09/14/19 [Rx Confirmed 07/08/20] Furosemide [Lasix] 40 mg PO DAILY 11/14/19 [History Confirmed 07/08/20] Lisinopril [Prinivil] 20 mg PO DAILY 11/14/19 [History Confirmed 07/08/20] Pantoprazole Sodium [Protonix] 20 mg PO DAILY 11/14/19 [History Confirmed 07/08/20] repaglinide 1 mg tablet 1 mg PO DAILY #360 tab 06/10/20 [Rx Confirmed 07/08/20] donepezil 10 mg tablet 5 mg PO QHS tab 06/17/20 [History Confirmed 07/08/20] memantine 5 mg tablet 5 mg PO BID #180 tab 07/01/20 [Rx Confirmed 07/08/20] [facility] Medical History Diarrhea (Acute) Gout (Chronic) Osteoarthritis (Chronic) Presence of stent in coronary artery (Chronic) Pure hypercholesterolemia (Chronic) Essential hypertension (Chronic) CKD (chronic kidney disease) stage 3, GFR 30-59 ml/min (Chronic) GERD (gastroesophageal reflux disease) (Chronic) Sleep apnea (Chronic) Presence of stent in coronary artery (Chronic ~03/28/18) Atherosclerotic heart disease of [place] coronary artery without angina pectoris (Chronic) Type 2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(Chronic) Black tarry stools (Resolved) Surgical History History of cholecystectomy (Resolved) Hx of appendectomy (Resolved) History of arthroscopy of right shoulder (Resolved) Hx of arthroscopy of right knee (Resolved) History of carpal tunnel surgery (Resolved) Presence of coronary angioplasty implant and graft (Chronic ~03/28/18) Family History Mother Hypertension High cholesterol CAD (coronary artery disease) Diabetes Anemia Arthritis History of blood clots Myocardial infarction, Onset Age: 69 Heart disease Father Angina pectoris Alzheimer disease Social History (Updated 07/08/20 @ 15:14 by Sherrie CHOUDHURY, PA) Smoking Status: Never smoker Electronic Cigarette Use: not used second hand exposure: No alcohol intake: current alcohol intake frequency: holidays/special occasions only substance use type: does not use caffeine: Yes Type: coffee Number of servings: 3 frequency: does not exercise ROS Const Const: Positive for fatigue; negative for weakness, fever(s) or headache(s) Eyes Eyes: Negative for blind spots, loss of peripheral vision or transient loss of vision ENT ENT: Negative for headache(s), dizziness, tinnitus or Nosebleed/epistaxis Cardio Chest Pain: Yes Palpitations: No Edema: Bilateral Muscle aches with walking: None Resp Respiratory: Positive for SOB with activity; negative for SOB at rest, SOB orthopnea\SOB lying down or Cough GI GI: Positive for belching and bloating; negative nausea, vomiting, heartburn or vomiting blood/hematemesis : Negative for hematuria Musc Musc: Negative for muscle aches/ myalgia Neuro Neuro: Negative for dizziness, lightheadedness, near syncope, syncope, orthostatic symptoms, headache(s) or weakness Tom Hematologic/Lymphatic: Negative for easy bleeding Endo Endo: Positive for fatigue Cardiology Exam Const Appearance: cooperative, comfortable, no acute distress, well developed and well groomed Nutritional Appearance: obese Orientation: alert, awake and oriented x3 Head Head: normal to inspection, normocephalic and atraumatic Ears: hearing grossly normal bilaterally Nose: external nose normal Face and Sinus: face symmetric Mouth: oral mucosae normal Teeth and gingiva: fair dentition Eyes Eyelids: eyelids normal Conjunctivae: conjunctivae normal Pupils: PERRL EOM: EOM intact bilaterally Neck Neck: normal visual inspection and full ROM Carotids: normal carotid upstroke Chest Chest inspection: normal inspection of the chest, symmetric chest movement and normal respiratory effort Auscultation: Bilateral: Clear to Auscultation Cardio Palpation: normal PMI Rate: regular rate Rhythm: regular rhythm Heart sounds: S1 normal and S2 normal GI GI: normal to inspection, soft, bowel sounds present and obese Neuro General: alert, awake, oriented x3 and moves all extremities Skin Skin: no rashes or lesions noted Extremities Pulses: Normal: Right Radial Pulse, Left Radial Pulse Lower Extremity Edema: Trace: Bilateral Psych Psychological: normal affect Assessment & Plan 1. Essential hypertension I10 Plan Blood pressure is well controlled on current medications, we do not recommend any changes at this time. 2. Atherosclerosis of [place] coronary artery of [place] heart without angina pectoris I25.10 S/P PTCA/ELFEGO to prox LAD in March 2018; Plan Patient does have some chest fullness and shortness of breath with exertion. This is similar to what she had prior to her stenting. Would like to proceed with a stress test to evaluate for underlying ischemia. She will continue with her Plavix, metoprolol and lisinopril. Orders Orders: 12 Lead EKG performed by BMS Today Cardiac Holter Monitor, Set-Up Today Cardiac Holter Monitor/Day Today Nuclear Stress Test - Chemical Today 3. Pure hypercholesterolemia E78.00 Plan Patient has been intolerant to cholesterol-lowering medication. 4. ESCOBAR (dyspnea on exertion) R06.00 Plan With her shortness of breath with exertion and fatigue will obtain a BNP and chest x-ray. Would also like to obtain a 24-hour Holter monitor to assess whether or not this is arrhythmia related would also like to obtain a stress test as the symptoms are similar to what she had prior to her stenting. She recently had a CBC and BMP and thyroid done Orders Orders: 12 Lead EKG performed by BMS Today BNP,B-Type NATRIURETIC PEPTIDE Today Chest PA and Lateral Today Cardiac Holter Monitor, Set-Up Today Cardiac Holter Monitor/Day Today Nuclear Stress Test - Chemical Today Plan Detail Other Orders Orders: Nuclear Stress Test - Chemical Today R07.89 Follow Up 07/08/20 (Keep as is) Coding Level of Care Code Off vis,est,level 4 Diagnoses Essential hypertension I10 Atherosclerosis of [place] coronary artery of [place] heart without angina pectoris I25.10 ??[place] vs. transplanted heart: [place] heart Pure hypercholesterolemia E78.00 ESCOBAR (dyspnea on exertion) R06.00 Coding Level of Care Code Off vis,est,level 4 Diagnoses Essential hypertension I10 Atherosclerosis of [place] coronary artery of [place] heart without angina pectoris I25.10 ??[place] vs. transplanted heart: [place] heart Pure hypercholesterolemia E78.00 ESCOBAR (dyspnea on exertion) R06.00 Supplemental Info Supplemental Information Transthoracic echocardiogram: 03/24/2018 The study was technically difficult. Contrast injection was performed. Left ventricular systolic function is normal. The estimated ejection fraction is 65 %. The left atrium is mildly enlarged. Trivial mitral valve insufficiency. Trivial tricuspid valve insufficiency. Mild focal aortic valve thickening. Right ventricular systolic pressure estimated to be 34 mmHg. Diastolic function: considered indeterminate. Stress Test Report Date: 07/04/2018 Procedure: Pharmacologic stress nuclear imaging study Indications: Chest pain; CAD; PCI Consent: Per the patient Procedure: The patient underwent pharmacologic (Regadenoson) evaluation with a peak heart rate of 72 beats per minute (47 predicted maximal heart rate) and a peak blood pressure of 120/64 mmHg. The baseline ECG demonstrated normal sinus rhythm. The peak pharmacologic ECG demonstrated no obvious ECG changes. There were no cardiac dysrhythmias pretest, during pharmacologic infusion, or recovery. There was no complaint of chest discomfort during pharmacologic infusion or recovery. The examination was discontinued secondary to completion of protocol. Impression: 1. Pharmacologic (Regadenoson) evaluation 2. Peak pharmacologic ECG with no obvious ECG change. 3. There were no cardiac dysrhythmias pretest, during pharmacologic infusion, or recovery. 4. Nuclear images pending Myocardial perfusion imaging study: Technique: The patient was injected with 14.9 millicuries of technetium 99m Cardiolite and subsequently rest SPECT Cardiolite nuclear imaging was obtained in the horizontal long, vertical long, and short axis views. The patient underwent pharmacologic (Regadenoson) evaluation with a peak heart rate of 72 beats per minute (47 % percent predicted maximal heart rate) and a peak blood pressure of 120/64 mmHg. The patient was injected with 44.8 millicuries of technetium 99m Cardiolite and subsequently stress SPECT Cardiolite nuclear imaging was obtained in the horizontal long, vertical long, and short axis views. A gated Cardiolite study at peak stress was obtained. Interpretation: Rest and stress SPECT Cardiolite nuclear imaging status post realignment, normalization, and attenuation correction demonstrate a small area of subtle diminished tracer uptake near the apical segments without significant change between rest and stress. There is end systolic thickening and brightening. The gated Cardiolite study demonstrates myocardial thickening and inward wall motion. The reported LVEF is 75 %. Impression: 1. Rest and stress SPECT Cardiolite nuclear imaging demonstrate myocardial perfusion changes appearing compatible with physiologic apical thinning with no myocardial perfusion changes considered diagnostic for associated stress-induced myocardial ischemia or previous myocardial injury/infarction. 2. The gated Cardiolite study reports an LVEF of 75 %. Cardiac catheterization: 03/28/2018 CONCLUSIONS [place] Multivessel CAD (predominantly LAD) Elevated Left Ventricular End Diastolic Pressure RECOMMENDATIONS Risk factor modification Medical therapy Referred for immediate PCI CORONARY ANGIOGRAPHY DOMINANCE: Right Dominant LEFT HEART ASSESSMENT Left Ventricular Ejection Fraction: Not assessed Elevated Left Ventricular End Diastolic Pressure LVEDP: 27 mmHg LEFT MAIN: Mild luminal irregularities LEFT ANTERIOR DECENDING ARTERY: PROX LAD: Concentric: Hazy: 75 % Stenosis MID LAD: Mild luminal irregularities CIRCUMFLEX ARTERY: OM 1: Mid - Mild luminal irregularities RIGHT CORONARY ARTERY: Mild luminal irregularities PCI: 03/28/2018 CONCLUSIONS Successful ELFEGO Prox LAD using Resolute Integrity 3.0x12 mm, post-dilated using 3.5 mm balloon. Final IVUS showing excellent stent apposition Mid LAD IVUS showed 50% eccentric lesion I have examined the patient the following changes are noted: The patient's main concern is shortness of breath and dyspnea. She states she has this with exertion as well as she senses shortness of breath at rest. The patient has had previous transthoracic echocardiogram performed on 08-03-2019 with the following results: Interpretation Summary The study was technically difficult. Contrast injection was performed. Left ventricular systolic function is normal. The estimated ejection fraction is 65 %. Trivial mitral valve insufficiency. Mild to moderate (1-2+) tricuspid valve insufficiency. Mild focal aortic valve calcification. Trivial aortic valve insufficiency. Trivial pulmonic valve insufficiency. Epicardial fat. Right ventricular systolic pressure estimated to be 25 mmHg. Diastolic function is indeterminate. The patient has undergone recent evaluation with a pharmacologic stress nuclear imaging study with the following results: Stress Test Report Date: 07-31-2020 Procedure: Pharmacologic stress nuclear imaging study Indications: Chest pain; dyspnea on exertion; CAD; status post PCI Consent: Per the patient Procedure: The patient underwent pharmacologic (Regadenoson) evaluation with a peak heart rate of 78 beats per minute (52%predicted maximal heart rate) and a peak blood pressure of 98/52 mmHg. The baseline ECG demonstrated sinus bradycardia. The peak pharmacologic ECG demonstrated no obvious ECG changes. There was an isolated PVC during infusion and an occasional PAC during recovery. There was no complaint of chest discomfort during pharmacologic infusion or recovery. The examination was discontinued secondary to completion of protocol. Impression: 1. Pharmacologic (Regadenoson) evaluation 2. Peak pharmacologic ECG with no obvious ECG changes. 3. Was an isolated PVC during infusion and a rare PAC during recovery. 4. Nuclear images pending Myocardial perfusion imaging study: Technique: The patient was injected with 10.5 millicuries of technetium 99m Cardiolite and subsequently rest SPECT Cardiolite nuclear imaging was obtained in the horizontal long, vertical long, and short axis views. The patient underwent pharmacologic (Regadenoson) evaluation with a peak heart rate of 78 beats per minute (52% percent predicted maximal heart rate) and a peak blood pressure of 98/52 mmHg. The patient was injected with 45.0 millicuries of technetium 99m Cardiolite and subsequently stress SPECT Cardiolite nuclear imaging was obtained in the horizontal long, vertical long, and short axis views. A gated Cardiolite study at peak stress was obtained. Interpretation: Rest and stress SPECT Cardiolite nuclear imaging status post realignment, normalization, and attenuation correction demonstrate the appearance of subtle diminished tracer uptake in portions of the distal anterior lateral/anteroapical/lateral apical segments without significant change between rest and stress. There is end systolic thickening and brightening. The gated Cardiolite study demonstrates myocardial thickening and inward wall motion. The reported LVEF is 80%. Impression: 1. Rest and stress SPECT cardiac nuclear imaging demonstrate the appearance of subtle diminished tracer uptake in portions of the distal anterior lateral/anteroapical/lateral apical segments without significant change between rest and press appearing compatible with soft tissue attenuation/artifact although an area of previous myocardial injury/infarction cannot necessarily be excluded with no myocardial perfusion changes considered diagnostic for associated stress-induced myocardial ischemia. 2. The gated Cardiolite study reports an LVEF of 80%. Comment: The patient's case was reviewed. Based upon her ongoing symptoms with no other explanation there is continued concern, despite her results of her aforementioned noninvasive studies, that her symptoms may be related to her underlying previously documented cardiovascular disease process. Thus consensus was to consider further evaluation coronary anatomy with diagnostic cardiac catheterization. The procedure and risk were discussed with patient. She was agreeable to this approach. The surgeon/proceduralist and patient have discussed in detail the risk of exposure to and/or potential harm posed by the COVID-19 virus with having a surgery/procedure at this time versus the risk of delaying the surgery/procedure. It is not possible to know either the risk of delaying the surgery or procedure or chance of getting an infection with perfect accuracy, but a joint decision was made between the patient and the surgeon/proceduralist to proceed at this time with the scheduled surgery/procedure as indicated on the consent form.
--- NOTE | 2020-08-05 11:12 | CL.D_ITS ---
Patient Name: JACEK LOPEZ Study Date: 08/05/2020 Performing: Franklyn Winter MD Ht: 61.81 inches 157 cm : 1950 Wt: 319.67 lbs 145 kg Age: 69 Gender: female BSA: 2.33 PROCEDURE(S) PERFORMED [id number]/LV CLINICAL PROFILE AND INDICATIONS Indications: Suspected CAD Heart Failure: None Stress/Imaging Date: 07/23/1220Stress Test with SPECT MPI: Indeterminant Angina Classification Anginal Classification w/in 2 Weeks: Anginal Equivalent Dyspnea CAD Presentations: Other: dyspnea on exertion CONCLUSIONS Elevated Left Ventricular End Diastolic Pressure Normal LV size, wall motion,and systolic function LVEF: by LV gram 65 % [place] Multivessel CAD LAD: PCI: Stent: Patent RECOMMENDATIONS Risk factor modification Medical therapy DESCRIPTION OF PROCEDURE The patient arrived to the procedure lab. The risks and benefits of the procedure as well as a full d escription of our services here and current unavailability of surgical backup were fully explained to the patient and/or their significant other prior to the catheterization. The Timeout was completed, verifying the correct patient and procedure. The patient's procedural site was prepped and draped in the usual fashion. Local anesthetic was given subcutaneously to right radial region with Lidocaine 2% . Using a modified Seldinger technique, arterial access was obtained via the right radial artery, a 6 Fr sheath was inserted. Left Coronary Artery selective angiography was performed in multiple views u sing a 5 Fr. 4.0 [place] catheter. Right Coronary Artery selective angiography was then performed in mu ltiple views using a 5 Fr. 4.0 [place] catheter. Left Ventriculography was performed in NUÑEZ projection using a 5 Fr. Pig[place] catheter. LV to AO pullback pressures were then recorded.The arterial sheath was pulled and a TR Band was applied for hemostasis w/ 13ml air CORONARY ANGIOGRAPHY DOMINANCE: Right Dominant LEFT HEART ASSESSMENT Left Ventricular Ejection Fraction: by LV Gram 65 % Normal LV wall motion Elevated Left Ventricular End Diastolic Pressure LVEDP: 23 mmHg LEFT MAIN: Mild luminal irregularities LEFT ANTERIOR DESCENDING ARTERY: PROX LAD: Previously placed stent is patent MID LAD: Mild luminal irregularities CIRCUMFLEX ARTERY: PROX CIRC: Mild luminal irregularities RIGHT CORONARY ARTERY: Mild luminal irregularities AORTIC ROOT: Angiographically normal COMPLICATIONS No Complications PROCEDURE MEDICATIONS Versed 1 mg IV Fentanyl 50 mcg IV Versed 1 mg IV Fentanyl 50 mcg IV Fentanyl 25 mcg IV Oxygen: 2 L/min via nasal cannula Heparin diluted in 23cc Heparinized saline. Patient given 10cc IA of this solution. 08/05/2020 10:29 :40 Verapamil 2.5mg, Ntg 100mcgs, 2000 units of Heparin diluted in 23cc Heparinized saline. Patient give n 10cc IA of this solution. 08/05/2020 10:29:40 SUMMARY OF HEMODYNAMIC DATA Time AIR REST ECG 09:08:23 AO 92/52 (69) SA 10:33:13 LV 137/7, 28 10:47:05 LV 125/1, 23 10:47:11 LV 149/2, 29 10:48:05 LVp 145/-1, 28 10:48:11 AOp 153/68 (103) 10:48:16 Signed By Franklyn Winter MD On 08/05/2020 11:11:13 Franklyn Winter MD
== END 2020-08-05 13:05 | disposition home or self-care (01) ==
PROVIDERS: PCP Family Medicine; Referring Provider Internal Medicine Cardiovascular Disease; Visit Provider Internal Medicine Cardiovascular Disease
DX: I25.10 Atherosclerotic heart disease of native coronary artery without angina pectoris (principal); E11.22 Type 2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with diabetic chronic kidney disease; I12.9 Hypertensive chronic kidney disease with stage 1 through stage 4 chronic kidney disease, or unspecified chronic kidney disease; N18.30 Chronic kidney disease, stage 3 unspecified; E78.5 Hyperlipidemia, unspecified; G47.33 Obstructive sleep apnea (adult) (pediatric); M19.90 Unspecified osteoarthritis, unspecified site; K21.9 Gastro-esophageal reflux disease without esophagitis; Z79.02 Long term (current) use of antithrombotics/antiplatelets; Z79.899 Other long term (current) drug therapy; Z95.5 Presence of coronary angioplasty implant and graft
CPT/HCPCS: 93458; 99152; 99153; J7040; Q9967; C1769; C1894

== ENCOUNTER → 2020-10-10 15:36 | Outpatient (CLI) | payer MEDICARE, OTHER, SELFPAY ==
[2020-05-13 13:37] VITALS: BMI 56.3
[2020-09-08 12:55] VITALS: BMI 55.3
--- NOTE | 2020-10-10 15:40 | RAD_ITS ---
STUDY: X-RAY CHEST REASON FOR EXAM: Female, 70 years old. dyspnea TECHNIQUE: PA and lateral views of the chest. COMPARISON: 07/08/2020 FINDINGS: There is hyperinflation of the lungs consistent with chronic obstructive lung disease (COPD). Lungs are clear. There is no demonstrated pleural abnormality. There is mild cardiac enlargement. Normal mediastinum and meg. Normal visualized pulmonary arteries. Normal visualized aortic arch and descending thoracic aorta. Normal visualized thoracic spine. There is degenerative osteoarthritis of the bilateral shoulders. Stable postsurgical change of the right shoulder There is no demonstrated abnormality of the visualized soft tissue structures of the upper abdomen. RAD/Chest PA and Lateral IMPRESSION: Stable COPD without acute findings Electronically Signed: Manuel Recinos DO at 23:25 EST Tel , Service support ,
--- NOTE | 2020-10-10 15:40 | RAD_ITS ---
STUDY: X-RAY - SOFT TISSUE NECK REASON FOR EXAM: Female, 70 years old. dyspnea TECHNIQUE: 2 view(s) of the neck were obtained. COMPARISON: None. FINDINGS: Normal visualized nasopharynx, oropharynx, hypopharynx. Normal epiglottis. Normal visualized subglottic tracheal air column. Normal prevertebral soft tissue structures. There are degenerative changes of the cervical spine with cervical spondylosis. The soft tissue structures are unremarkable. RAD/Neck for Soft Tissue IMPRESSION: No acute findings. Mild degenerative changes Electronically Signed: Manuel Recinos DO at 23:25 EST Tel , Service support ,
[2020-10-10 18:18] LABS: BNP,B-Type NATRIURETIC PEPTIDE 184.1 pg/mL (0-100)
== END ==
PROVIDERS: PCP Family Medicine; Referring Provider Internal Medicine Pulmonary Disease; Visit Provider Internal Medicine Pulmonary Disease
DX: R06.00 Dyspnea, unspecified (principal); I10 Essential (primary) hypertension; G47.33 Obstructive sleep apnea (adult) (pediatric)
CPT/HCPCS: 36415; 70360; 71046; 83880

== ENCOUNTER → 2020-10-13 13:50 | Outpatient (CLI) | payer MEDICARE, OTHER, SELFPAY ==
[2020-05-13 13:37] VITALS: BMI 56.3
[2020-10-13 13:03] VITALS: BMI 56.9
[2020-10-13 16:10] LABS: Anion Gap 7 (5-15); BUN 25 mg/dL (7-18); BUN/Creat Ratio 18.9 RATIO (10-20); Calcium,Total 8.8 mg/dL (8.5-10.1); Chloride 106 mmol/L (98-107); Creatinine, Serum 1.32 mg/dL (0.55-1.02); EST Glomerular Filtration Rate 42 mL/min (>60); Est Glom Filt Rate - Afr Amer 51 mL/min (>60); Glucose 84 mg/dL (74-106); Potassium 4.7 mmol/L (3.5-5.1); Sodium Level 138 mmol/L (136-145)
== END ==
PROVIDERS: PCP Family Medicine; Referring Provider Internal Medicine Cardiovascular Disease; Visit Provider Internal Medicine Cardiovascular Disease
DX: I25.10 Atherosclerotic heart disease of native coronary artery without angina pectoris (principal); I10 Essential (primary) hypertension; E78.00 Pure hypercholesterolemia, unspecified; Z95.5 Presence of coronary angioplasty implant and graft
CPT/HCPCS: 36415; 80048

== ENCOUNTER → 2020-10-23 13:00 | Outpatient (CLI) | payer MEDICARE, OTHER, SELFPAY ==
[2020-05-13 13:37] VITALS: BMI 56.3
[2020-10-13 13:03] VITALS: BMI 56.9
--- NOTE | 2020-10-23 13:02 | ECHOCS_ITS ---
Reason For Study: DYSPNEA Procedure This was a 2D Doppler, Color Flow transthoracic echocardiogram. The study was technically difficult. Contrast injection was performed. Exam performed in department. Left Ventricle Normal LV size. Left ventricular systolic function is normal. The estimated ejection fraction is 65 %. No regional wall motion abnormalities noted. Right Ventricle Normal RV size. Normal systolic function. Atria Normal left atrium. Normal right atrium. No doppler evidence for ASD. Mitral Valve There is no mitral annular calcification. Normal mitral valve. Trivial mitral valve insufficiency. Tricuspid Valve Normal tricuspid valve. Mild tricuspid valve insufficiency. Right ventricular systolic pressure estimated to be 33 mmHg. Aortic Valve Trisinus/trileaflet aortic valve. Normal aortic valve. Trivial aortic valve insufficiency. Pulmonic Valve The pulmonic valve is not well visualized. Trivial pulmonic valve insufficiency. Great Vessels Borderline enlarged aortic root. Pericardium/Pleural No pericardial effusion. Medication 22 gauge I.V. with prn adaptor inserted into right arm. Diluted definity 3.0ml given slow IV push to enhance endocardial definition. MMode/2D Measurements & Calculations LVIDd: 4.8 cm IVSd: 0.98 cm Ao root diam: 3.9 cm LVIDs: 3.2 cm LVPWd: 0.99 cm RVDd: 3.7 cm FS: 33.7 % LAV(MOD-bp): 31.1 ml LVAd ap4: 31.9 cm2 SV(MOD-sp4): 68.9 ml LAV(MOD-bp) Indexed: 13.4 ml/m2 EDV(MOD-sp4): 104.9 ml LAV(MOD-sp2): 31.8 ml EDV(sp4-el): 111.9 ml LAV(MOD-sp4): 31.7 ml LVAs ap4: 17.2 cm2 ESV(MOD-sp4): 36.0 ml ESV(sp4-el): 36.6 ml EF(MOD-sp4): 65.7 % EF(sp4-el): 67.3 % SV(sp4-el): 75.3 ml LA A4 area: 14.4 cm2 LA dimension(2D): 3.3 cm RA A4 area: 14.1 cm2 Time Measurements MV dec time: 0.23 sec Doppler Measurements & Calculations MV E max grant: 99.4 cm/sec Lat Peak E' Grant: 8.8 cm/sec Med Peak E' Grant: 7.4 cm/sec MV A max grant: 69.3 cm/sec E/E' lat: 11.2 E/E' med: 13.5 MV E/A: 1.4 Ao V2 max: 146.5 cm/sec AI max grant: 377.8 cm/sec LV V1 max: 102.0 cm/sec Ao max P.6 mmHg AI max P.1 mmHg LV V1 max P.2 mmHg AI dec slope: 167.1 cm/sec2 AI P1/2t: 662.0 msec TR max grant: 271.8 cm/sec TR max P.7 mmHg Interpretation Summary The study was technically difficult. Contrast injection was performed. Left ventricular systolic function is normal. The estimated ejection fraction is 65 %. Trivial mitral valve insufficiency. Mild tricuspid valve insufficiency. Trivial aortic valve insufficiency. Trivial pulmonic valve insufficiency. Borderline enlarged aortic root. Right ventricular systolic pressure estimated to be 33 mmHg. Transmitral diastolic flow velocities suggest diastolic dysfunction (pseudonormal pattern). Ordering Physician: Franklyn Winter Referring Physician: NAN RIOS Performed By: Bekah Randall, RDCS, RVT
== END ==
PROVIDERS: PCP Family Medicine; Visit Provider Internal Medicine Cardiovascular Disease
DX: R06.02 Shortness of breath (principal); R06.00 Dyspnea, unspecified
CPT/HCPCS: 93306; Q9957; A4216; C8929

== ENCOUNTER → 2020-12-24 08:59 | Outpatient (CLI) | payer MEDICARE, OTHER, SELFPAY ==
[2020-05-13 13:37] VITALS: BMI 56.3
[2020-12-09 16:26] VITALS: BMI 58.3
[2020-12-24 09:31] LABS: Hematocrit 38.7 % (37-47); Hemoglobin 12.5 g/dL (12.0-15.0); Mean Corp Hgb Conc 32.3 g/dL (32-36); Mean Platelet Vol. 9.7 fl (6.2-12.0); Platelet Count 199 K/mm3 (150-450); RBC Distribution Width CV 14.3 % (11.6-14.6); RBC Distribution Width SD 49.1 fl (35.1-43.9); Red Blood Count 4.03 M/mm3 (4.2-5.4); White Blood Count 7.2 K/mm3 (4.4-11.0)
[2020-12-24 09:57] LABS: Albumin, Serum 3.8 g/dL (3.2-5.0); BUN 39 mg/dL (7-18); Calcium,Total 9.5 mg/dL (8.5-10.1); Chloride 105 mmol/L (98-107); EST Glomerular Filtration Rate 36 mL/min (>60); Est Glom Filt Rate - Afr Amer 44 mL/min (>60); Glucose 162 mg/dL (74-106); Magnesium 2.3 mg/dL (1.6-2.6); PTHIN 45.5 pg/mL (18.4-80.1); Phosphorus 3.1 mg/dL (2.5-4.9); Potassium 4.5 mmol/L (3.5-5.1); Sodium Level 135 mmol/L (136-145)
[2020-12-24 10:01] LABS: Vitamin D,25 Hydroxy 29.1 ng/mL
[2020-12-24 11:05] LABS: Creatinine, Urine (random) < 13.00 mg/dL (NO RANGE EST.); Microalbumin,Random Urine < 5.0 mg/L (NO RANGE EST.)
== END ==
PROVIDERS: PCP Family Medicine; Referring Provider Internal Medicine Nephrology; Visit Provider Internal Medicine Nephrology
DX: N18.4 Chronic kidney disease, stage 4 (severe) (principal); E55.9 Vitamin D deficiency, unspecified
CPT/HCPCS: 36415; 80069; 82043; 82306; 82570; 83735; 83970; 85027

== ENCOUNTER → 2021-01-29 | Outpatient (CLI) | payer MEDICARE, OTHER, SELFPAY ==
[2020-05-13 13:37] VITALS: BMI 56.3
[2021-01-16 13:15] VITALS: BMI 58.3
== END | disposition home or self-care (01) ==
LOC: LABSPEC 15:03
PROVIDERS: PCP Family Medicine; Referring Provider Otolaryngology Otolaryngology/Facial Plastic Surgery; Visit Provider Otolaryngology Otolaryngology/Facial Plastic Surgery
DX: H83.09 Labyrinthitis, unspecified ear (principal)
CPT/HCPCS: 87070; 87077; 87186; 87205

== ENCOUNTER 2021-03-31 10:30 | Outpatient (RCR) | payer MEDICARE, OTHER, SELFPAY ==
[2020-05-13 13:37] VITALS: BMI 56.3
[2021-01-16 13:15] VITALS: BMI 58.3
--- NOTE | 2021-03-30 15:00 | HP.PTEVAL ---
Patient's Visit Information JACEK LOPEZ is a 70 year old F referred to Physical Therapy by Dr. Fredy Sandoval MD with a diagnosis of LBP and L knee pain. Date of Evaluation: 03/30/21 Physical Therapist: Aj Granados, PT, ATC - Visit Plan Frequency: 2-3x /Week Duration: 4-6 Weeks Plan: Aquatic therapy consisting of L LE strengthening, core stab ex's, postural education, and HEP - Subjective Pt reports she has had LBP with L LE radiculopathy for 6-8 weeks. Pt reports she was recently placed on Gabapentin which has provided her with some relief. Pt reports she has a lot of difficulty with all of her IADL's secondary to pain. Pt reports toilet transfers and sit to stand transfers are very difficult. Pt notes she is unable to ambulate for a prolonged distance secondary to pain. Pt reports she has to use a cane for community ambulation, and a walker while she is at home. Pt reports she also has limited mobility in her L knee secondary to severe OA. Pt reports she has a really hard falling asleep secondary to pain. L knee pain is 7/10 and LBP is 2/10 at rest and both are 10/10 at worst. - Pain LBP Pain Intensity (Out of 10): 2 Pain Intensity Range: 10 L knee pain Pain Intensity (Out of 10): 7 Pain Intensity Range: 10 - Objective Neuro: B LE sensation is WNL to light touch. B achilles reflex= 1/3. MMT: L knee is grossly 4-/5 and painful with all testing. R LE 5/5 throughout. ROM: R knee 0-115 degrees, L knee 0-90 degrees. All other LE measurements are WFL. L/S extension is moderately limited. All other ranges are WNL. Gait: Pt is able to ambulate 120 feet from registration to eval room until needing to sit down secondary to pain - Goals Goal 1:: Decrease L knee pain x 50% to aid with sleep Goal Time Frame: 4-6 Weeks Goal 2:: Decrease LBP x 50% to aid with increasing pr's tolerance for ambulation Goal Time Frame: 4-6 Weeks Goal 3:: Pt will be able to ambulate greater than 300 feet to aid with community ambulation Goal Time Frame: 4-6 Weeks Goal 4:: I with HEP Goal Time Frame: 4-6 Weeks - Rehabilitation Potential Physical Therapy Diagnosis: Pt has LBP and L knee pain secondary to degenerative changes respectively. Rehabilitation Potential: Good - Anticipated Interventions Patient/Client Instruction: Educate patient on: Condition, Plan of Care For the Purpose of:: To improve self management Therapeutic Exercise to Include: Strength training, Body mechanics, Postural training, Gait and locomotor training, In an aquatic setting, Dynamic Lumbar Stabilization For the Purpose of:: To decrease pain, To increase ROM, To improve muscle performance and motor function Thank you for the opportunity to evaluate your patient. For Medicare and Medicare HMO plans, please review the plan of care and approve it. It will need to be FAXED BACK to us at [phone] for Medicare purposes. For Medicare only, by signing this I certify the plan of care. Please let me know if there are questions or concerns regarding this plan of care. Physician Signature: Date:
--- NOTE | 2021-07-24 14:50 | HP.PT.NRP ---
JACEK LOPEZ was seen in my office for initial evaluation on 03/30/21. The following Plan of Care was established for this patient: Initial Frequency: 2-3x /Week Initial Duration: 4-6 Weeks Patient/Client Instruction: Educate patient on: Condition, Plan of Care For the Purpose of:: To improve self management Therapeutic Exercise to Include: Strength training, Body mechanics, Postural training, Gait and locomotor training, In an aquatic setting, Dynamic Lumbar Stabilization For the Purpose of:: To decrease pain, To increase ROM, To improve muscle performance and motor function This patient was last seen in our office . Pertinent comments regarding their Physical therapy will appear below: Pt was treated for 2 PT visits secondary to L knee pain and LBP through the date of 03/31/21. Pt has not returned through todays date and is discontinued at this time. At this point I will be discontinuing this patient from physical therapy. I would be happy to see this patient again in the future if found appropriate by the physician. Thank you! Aj Granados, PT, ATC Balance/Gait/Functional tests - Balance/Special Test Scores Lower Extremity Functional Score: 20
== END 2021-03-31 19:00 | disposition home or self-care (01) ==
LOC: PT 10:30
PROVIDERS: PCP Family Medicine; Referring Provider Orthopaedic Surgery; Visit Provider Orthopaedic Surgery
DX: M17.12 Unilateral primary osteoarthritis, left knee (principal); M54.16 Radiculopathy, lumbar region
CPT/HCPCS: 97113; 97161

== ENCOUNTER → 2021-06-30 10:07 | Outpatient (CLI) | payer MEDICARE, OTHER, SELFPAY ==
[2020-05-13 13:37] VITALS: BMI 56.3
[2021-06-30 10:39] LABS: Hematocrit 37.2 % (37-47); Hemoglobin 12.2 g/dL (12.0-15.0); Mean Corp Hgb Conc 32.8 g/dL (32-36); Mean Corpuscular Hgb 32.3 pg (27.0-32.0); Mean Corpuscular Volume 98.4 fL (81-99); Mean Platelet Vol. 9.9 fl (6.2-12.0); Platelet Count 235 K/mm3 (150-450); RBC Distribution Width CV 13.4 % (11.6-14.6); RBC Distribution Width SD 48.5 fl (35.1-43.9); Red Blood Count 3.78 M/mm3 (4.2-5.4); White Blood Count 7.3 K/mm3 (4.4-11.0)
[2021-06-30 11:03] LABS: Albumin, Serum 3.7 g/dL (3.2-5.0); BUN 58 mg/dL (7-18); BUN/Creat Ratio 29.1 RATIO (10-20); Calcium,Total 8.8 mg/dL (8.5-10.1); Chloride 105 mmol/L (98-107); Creatinine, Serum 1.99 mg/dL (0.55-1.02); EST Glomerular Filtration Rate 26 mL/min (>60); Est Glom Filt Rate - Afr Amer 32 mL/min (>60); Glucose 144 mg/dL (74-106); Magnesium 2.3 mg/dL (1.6-2.6); Phosphorus 2.8 mg/dL (2.5-4.9); Potassium 4.5 mmol/L (3.5-5.1); Sodium Level 138 mmol/L (136-145); Uric Acid 7.4 mg/dL (2.6-6.0)
[2021-06-30 11:05] LABS: Vitamin D,25 Hydroxy 28.5 ng/mL
[2021-06-30 11:06] LABS: PTHIN 101.9 pg/mL (18.4-80.1)
[2021-06-30 11:15] LABS: AST(SGOT) 17 U/L (15-37); Alanine Aminotransfer ALT/SGPT 21 U/L (13-56); Albumin, Serum 3.6 g/dL (3.2-5.0); Alkaline Phosphatase 73 U/L (45-117); Bilirubin, Direct 0.14 mg/dL (0.00-0.30); Cholesterol 223 mg/dL (200); Globulin 3.5 g/dL (2.2-4.2); High Density Lipoprotein 43 mg/dL; Protein, Total 7.1 g/dL (6.4-8.2); Triglycerides 177 mg/dL; Very Low Density Lipoprotein 35 mg/dL (5-40)
[2021-06-30 13:43] LABS: Microalbumin,Random Urine 12.9 mg/L (NO RANGE EST.); Microalbumin:Creatinine Ratio 9.3 mg/g CRE (<30 mg/g CRE)
== END ==
PROVIDERS: Nurse Practitioner Family; PCP Family Medicine; Referring Provider Internal Medicine Nephrology; Visit Provider Internal Medicine Nephrology
DX: E11.22 Type 2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with diabetic chronic kidney disease (principal); N18.4 Chronic kidney disease, stage 4 (severe); I25.10 Atherosclerotic heart disease of native coronary artery without angina pectoris; E78.00 Pure hypercholesterolemia, unspecified; E55.9 Vitamin D deficiency, unspecified; M10.9 Gout, unspecified
CPT/HCPCS: 36415; 80061; 80069; 80076; 82043; 82306; 82570; 83735; 83970; 84550; 85027

== ENCOUNTER → 2021-09-15 | Outpatient (CLI) | payer MEDICARE, OTHER, SELFPAY ==
[2020-05-13 13:37] VITALS: BMI 56.3
== END | disposition home or self-care (01) ==
LOC: LABSPEC 15:05
PROVIDERS: PCP Family Medicine; Referring Provider Otolaryngology Otolaryngology/Facial Plastic Surgery; Visit Provider Otolaryngology Otolaryngology/Facial Plastic Surgery
DX: J02.9 Acute pharyngitis, unspecified (principal)
CPT/HCPCS: 87070; 87077; 87186; 87205

== ENCOUNTER 2021-09-23 11:37 | Outpatient (CLI) | payer MEDICARE, OTHER, SELFPAY ==
[2020-05-13 13:37] VITALS: BMI 56.3
== END 2021-09-23 23:59 | disposition short-term general hospital (02) ==
LOC: LABSPEC 11:37
PROVIDERS: PCP Family Medicine; Visit Provider Physician Assistant
DX: U07.1 COVID-19 (principal)
CPT/HCPCS: 87635; U0003; U0005

== ENCOUNTER 2021-09-29 14:22 | Outpatient (CLI) | payer MEDICARE, OTHER, SELFPAY ==
[2020-05-13 13:37] VITALS: BMI 56.3
[2021-09-29 14:45] VITALS: BP 143/59; PULSE 65; RESP 16; TEMP 36.3; O2SAT 96; BMI 55.0
[2021-09-29] MEDS: 0.9% Saline Lock 10 ML Syringe IV (14:45)
[2021-09-29 15:37] VITALS: BP 134/56; PULSE 56; RESP 16; TEMP 36.8; O2SAT 96
[2021-09-29 16:32] VITALS: BP 125/67; PULSE 56; RESP 16; TEMP 36.7; O2SAT 98
== END 2021-09-29 23:59 | disposition home or self-care (01) ==
LOC: MS3OUT 14:23 → MS3 14:23
PROVIDERS: PCP Family Medicine; Referring Provider Nurse Practitioner Adult Health; Visit Provider Nurse Practitioner Adult Health
DX: U07.1 COVID-19 (principal)
CPT/HCPCS: J7050; M0243; A4216; Q0244

== ENCOUNTER 2021-10-28 14:40 | Outpatient (CLI) | payer MEDICARE, OTHER, SELFPAY ==
[2020-05-13 13:37] VITALS: BMI 56.3
[2021-10-28 15:23] LABS: Absolute Lymphocyte Count 2.01 X10^3/uL (0.83-4.51); Absolute Neutrophil Count 4.1 X10^3/uL (2.0-7.7); Basophil# 0.06 X10^3/uL; Basophil% 0.9 % (0-1); Eosinophil# 0.29 X10^3/uL; Eosinophils% 4.2 % (0-5); Hematocrit 41.6 % (37-47); Hemoglobin 13.8 g/dL (12.0-15.0); Lymphocyte # 2.01 X10^3/ul (0.83-4.51); Lymphocyte % 28.8 % (19-41); Mean Corp Hgb Conc 33.2 g/dL (32-36); Mean Corpuscular Hgb 32.2 pg (27.0-32.0); Mean Platelet Vol. 9.6 fl (6.2-12.0); Monocyte# 0.53 X10^3/uL; Monocyte% 7.6 % (0-10); NRBC Flagged by Analyzer 0 % (0-5); Neutrophil # 4.05 X10^3/uL (2.7-7.7); Neutrophil % 58.1 % (47-70); Platelet Count 241 K/mm3 (150-450); RBC Distribution Width CV 13.8 % (11.6-14.6); RBC Distribution Width SD 49.5 fl (35.1-43.9); Red Blood Count 4.29 M/mm3 (4.2-5.4)
[2021-10-28 15:50] LABS: PTHIN 167.6 pg/mL (18.4-80.1)
[2021-10-28 16:00] LABS: BUN 33 mg/dL (7-18); BUN/Creat Ratio 19.6 RATIO (10-20); Calcium,Total 9.1 mg/dL (8.5-10.1); Chloride 102 mmol/L (98-107); Creatinine, Serum 1.68 mg/dL (0.55-1.02); EST Glomerular Filtration Rate 32 mL/min (>60); Est Glom Filt Rate - Afr Amer 39 mL/min (>60); Glucose 167 mg/dL (74-106); Potassium 5.2 mmol/L (3.5-5.1); Sodium Level 136 mmol/L (136-145)
[2021-10-28 16:09] LABS: Vitamin D,25 Hydroxy 32.5 ng/mL
[2021-10-28 16:15] LABS: Microalbumin,Random Urine 12.4 mg/L (NO RANGE EST.); Microalbumin:Creatinine Ratio 11.2 mg/g CRE (<30 mg/g CRE)
[2021-10-30 14:32] LABS: MG Sendout 2.2 mg/dL (1.6-2.3)
== END 2021-10-28 23:59 | disposition home or self-care (01) ==
LOC: LAB 14:42
PROVIDERS: PCP Family Medicine; Visit Provider Internal Medicine Nephrology
DX: N18.4 Chronic kidney disease, stage 4 (severe) (principal); M10.9 Gout, unspecified; E55.9 Vitamin D deficiency, unspecified
CPT/HCPCS: 36415; 80069; 82043; 82306; 82570; 83735; 83970; 84550; 85025

== ENCOUNTER 2021-11-27 14:26 | Outpatient (CLI) | payer MEDICARE, OTHER, SELFPAY ==
[2020-05-13 13:37] VITALS: BMI 56.3
[2021-11-27 16:05] LABS: Vitamin B12 436 pg/mL (211-911)
[2021-11-27 16:14] LABS: Thyroid Stim Hormone (TSH) 0.81 uIU/mL (0.358-3.74)
[2021-11-27 17:19] LABS: Color, Urine Yellow (Yellow); Glucose, Dipstick Normal (Normal); Ketone-Dipstick Negative (Negative); Leukocyte Esterase-Dipstick Negative /ul (Negative); Nitrite-Dipstick Negative (Negative); Occult Blood-Urine Negative /ul (Negative); Protein-Dipstick Negative (Negative); Specific Gravity, Urine 1.015 (1.002-1.030); Urine Bilirubin Dipstick Negative (Negative); Urine Clarity Clear (Clear); Urine Urobilinogen Normal (Normal)
== END 2021-11-27 23:59 | disposition home or self-care (01) ==
LOC: LAB 14:29
PROVIDERS: PCP Family Medicine; Visit Provider Family Medicine
DX: R41.82 Altered mental status, unspecified (principal)
CPT/HCPCS: 36415; 81002; 82607; 84443; 87086; 87088

== ENCOUNTER → 2022-06-08 | Outpatient (CLI) | payer MEDICARE, OTHER, SELFPAY ==
[2020-05-13 13:37] VITALS: BMI 56.3
--- NOTE | 2022-06-08 09:54 | ECHOCS_ITS ---
Reason For Study: CAD Procedure This was a 2D Doppler, Color Flow transthoracic echocardiogram. The study was technically difficult. Contrast injection was performed. Exam performed in department. Left Ventricle Left ventricular systolic function is normal. The estimated ejection fraction is 65 %. No evidence for diastolic dysfunction. No regional wall motion abnormalities noted. Right Ventricle Normal RV size. Normal systolic function. Atria Normal left atrium. Normal right atrium. No doppler evidence for ASD. Mitral Valve There is no mitral annular calcification. Normal mitral valve. Trivial mitral valve insufficiency. Tricuspid Valve Normal tricuspid valve. Mild tricuspid valve insufficiency. Right ventricular systolic pressure estimated to be 28 mmHg. Aortic Valve Trisinus/trileaflet aortic valve. Mild focal aortic valve calcification. Mild (1+) aortic valve insufficiency. Pulmonic Valve The pulmonic valve is not well visualized. Great Vessels Normal sized aortic root. Pericardium/Pleural No pericardial effusion. Medication 22 gauge I.V. with prn adaptor inserted into left arm. Diluted definity 1ml given slow IV push to enhance endocardial definition. MMode/2D Measurements & Calculations RVDd: 3.4 cm Ao root diam: 3.7 cm LAV(MOD-sp4): 61.9 ml LVAd ap4: 29.2 cm2 SV(MOD-sp4): 60.6 ml SV(sp4-el): 64.5 ml LVLd ap4: 8.2 cm EDV(MOD-sp4): 83.3 ml EDV(sp4-el): 87.8 ml LVAs ap4: 13.5 cm2 LVLs ap4: 6.6 cm ESV(MOD-sp4): 22.7 ml ESV(sp4-el): 23.3 ml EF(MOD-sp4): 72.8 % EF(sp4-el): 73.5 % LA A4 area: 22.9 cm2 LA dimension(2D): 3.4 cm RA A4 area: 14.5 cm2 Time Measurements MV dec time: 0.29 sec Doppler Measurements & Calculations MV E max grant: 72.6 cm/sec Lat Peak E' Grant: 7.6 cm/sec Med Peak E' Grant: 6.5 cm/sec MV A max grant: 80.0 cm/sec E/E' lat: 9.6 E/E' med: 11.2 MV E/A: 0.91 MV V2 max: 76.9 cm/sec Ao V2 max: 138.2 cm/sec MV max P.4 mmHg MV dec slope: 247.1 cm/sec2 Ao max P.6 mmHg MV V2 mean: 47.0 cm/sec Ao V2 mean: 92.8 cm/sec MV mean P.98 mmHg Ao mean P.9 mmHg MV V2 VTI: 36.3 cm Ao V2 VTI: 34.6 cm AI max grant: 358.1 cm/sec LV V1 max: 111.5 cm/sec PA V2 max: 80.6 cm/sec AI max P.3 mmHg LV V1 max P.0 mmHg PA V2 mean: 58.3 cm/sec LV V1 mean P.5 mmHg AI dec slope: 130.6 cm/sec2 LV V1 mean: 73.0 cm/sec AI P1/2t: 803.4 msec LV V1 VTI: 28.4 cm TR max grant: 249.5 cm/sec TR max P.9 mmHg ECHO/Echo Complete W/ Contrast Interpretation Summary The study was technically difficult. Contrast injection was performed. Left ventricular systolic function is normal. The estimated ejection fraction is 65 %. Trivial mitral valve insufficiency. Mild tricuspid valve insufficiency. Mild focal aortic valve calcification. Mild (1+) aortic valve insufficiency. Right ventricular systolic pressure estimated to be 28 mmHg. No evidence for diastolic dysfunction. Ordering Physician: Franklyn Winter Referring Physician: Franklyn Winter Performed By: Tisha Rodriguez RCS
== END | disposition home or self-care (01) ==
LOC: CVS 09:49
PROVIDERS: PCP Family Medicine; Referring Provider Internal Medicine Cardiovascular Disease; Visit Provider Internal Medicine Cardiovascular Disease
DX: I25.10 Atherosclerotic heart disease of native coronary artery without angina pectoris (principal)
CPT/HCPCS: 93306; Q9957; A4216; C8929

== ENCOUNTER → 2022-06-24 | Outpatient (CLI) | payer MEDICARE, OTHER, SELFPAY ==
[2020-05-13 13:37] VITALS: BMI 56.3
[2022-06-24 15:45] LABS: Anion Gap 7 (5-15); BUN 59 mg/dL (7-18); BUN/Creat Ratio 35.1 RATIO (10-20); Calcium,Total 9.3 mg/dL (8.5-10.1); Chloride 106 mmol/L (98-107); Creatinine, Serum 1.68 mg/dL (0.55-1.02); EST Glomerular Filtration Rate 32 mL/min (>60); Est Glom Filt Rate - Afr Amer 38 mL/min (>60); Glucose 227 mg/dL (74-106); Potassium 4.6 mmol/L (3.5-5.1); Sodium Level 137 mmol/L (136-145)
== END | disposition home or self-care (01) ==
LOC: BFHLAB 11:54
PROVIDERS: PCP Family Medicine; Visit Provider Family Medicine
DX: N18.32 Chronic kidney disease, stage 3b (principal)
CPT/HCPCS: 36415; 80048

== ENCOUNTER 2022-07-18 03:47 | Emergency (ER) | payer MEDICARE, OTHER, SELFPAY ==
[2020-05-13 13:37] VITALS: BMI 56.3
[2022-07-18 03:49] VITALS: BP 154/68; PULSE 63; RESP 16; TEMP 35.9; O2SAT 92; BMI 54.8
--- NOTE | 2022-07-18 04:14 | EKG12_ITS ---
Test Reason : CP Blood Pressure : / mmHG Vent. Rate : 062 BPM Atrial Rate : 062 BPM P-R Int : 156 ms QRS Dur : 072 ms QT Int : 468 ms P-R-T Axes : 035 043 043 degrees QTc Int : 475 ms Normal sinus rhythm Low voltage QRS (Limb Leads) Confirmed by MILENA FINLEY, JU ([id number]), acquisition editor MALKA REDD ([id number]) on 07/19/2022 9:28:54 AM Referred By: MAMADOU Confirmed By:JU ABBOTT MD
--- NOTE | 2022-07-18 04:16 | ED.VIS.CHEST ---
HPI History of Present Illness Chief Complaint: Chest Pain Informant: patient and family Narrative Narrative: Presented with chest pains with coughing over the last 3 days and wheezing. Denies tobacco asthma or COPD history. She is almost finished her second round of antibiotics for sinus congestion written by her PCP 1 more day of Levaquin left. Initially had fevers. Sinus is improving just has postnasal drainage. Nonproductive cough. Occasional nausea. No vomiting or diarrhea. Right abdominal pain with cough. History of hypertension diabetes coronary stent in the past. History of CKD. [facility] Medical History Atherosclerotic heart disease of [place] coronary artery without angina pectoris Black tarry stools Cerebrovascular disease CKD (chronic kidney disease) stage 3, GFR 30-59 ml/min Diarrhea Essential hypertension GERD (gastroesophageal reflux disease) Gout History of left heart catheterization (LHC) (~08/05/20) MCI (mild cognitive impairment) Mild congestive heart failure Nausea Obesity Osteoarthritis Presence of stent in coronary artery (~03/28/18) Presence of stent in coronary artery Pure hypercholesterolemia Sleep apnea Type 2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Home Medications allopurinol 100 mg tablet 100 mg PO BID GOUT 03/15/18 [History Last Taken 11/18/19] clopidogrel 75 mg tablet 75 mg PO DAILY HEART HEALTH 09/04/19 [History Last Taken 08/05/20] metoprolol tartrate 25 mg tablet 25 mg PO BID 09/14/19 [Rx Last Taken 08/05/20] furosemide 40 mg tablet 40 mg PO DAILY 10/13/20 [History Last Taken Unknown] lisinopril 20 mg tablet 20 mg PO DAILY 10/13/20 [History Last Taken Unknown] cholecalciferol (vitamin D3) 50 mcg (2,000 unit) capsule 50 mcg PO DAILY 11/12/21 [History Last Taken Unknown] citalopram 40 mg tablet 20 mg PO BID 11/12/21 [History Last Taken Unknown] multivitamin 1 tab PO DAILY 03/03/22 [History Last Taken Unknown] blood sugar diagnostic (True Metrix Glucose Test Strip) #50 ea 03/30/22 [Rx Last Taken Unknown] blood-glucose meter (True Metrix Glucose Meter) #1 ea 03/30/22 [Rx Last Taken Unknown] evolocumab 140 mg/mL subcutaneous syringe (Repatha Syringe) 140 mg subcut Q2W #2 mL 05/03/22 [Rx Last Taken Unknown] donepezil 5 mg tablet 5 mg PO QAM #90 tabs 05/17/22 [Rx Last Taken Unknown] memantine 10 mg tablet 10 mg PO QAM #90 tabs 05/17/22 [Rx Last Taken Unknown] repaglinide 2 mg tablet 4 mg PO TID #360 tabs 05/27/22 [Rx Last Taken Unknown] cetirizine 10 mg tablet (All Day Allergy (cetirizine)) 10 mg PO DAILY PRN postnasal drainage #30 tabs 07/18/22 [Rx Last Taken Unknown] Allergy/AdvReac Type Severity Reaction Status Date / Time naproxen [From Naprosyn] Allergy Severe INTERNAL Verified 05/17/22 11:31 BLEEDING prednisone Allergy Severe COMBINATION Verified 05/17/22 11:31 WITH NAPROXEN CAUSED INTERNAL BLEEDING exenatide [From Byetta] AdvReac Intermediate Unknown Verified 05/17/22 11:31 ezetimibe [From Zetia] AdvReac Intermediate Unknown Verified 05/17/22 11:31 fluticasone [From Flonase] AdvReac Intermediate Headaches Verified 05/17/22 11:31 amoxicillin [From Augmentin] AdvReac Unknown Headache Verified 05/17/22 11:31 clavulanic acid AdvReac Unknown Headache Verified 05/17/22 11:31 [From Augmentin] clorazepate dipotassium AdvReac Unknown Unknown Verified 05/17/22 11:31 [From Tranxene T-Tab] guaifenesin AdvReac Unknown NEEDS Verified 05/17/22 11:31 FOLLOW-UP indomethacin [From Indocin] AdvReac Unknown Unknown Verified 05/17/22 11:31 ketoprofen [From Oruvail] AdvReac Unknown Unknown Verified 05/17/22 11:31 nizatidine [From Axid] AdvReac Unknown Unknown Verified 05/17/22 11:31 ranitidine [From Zantac] AdvReac Unknown Unknown Verified 05/17/22 11:31 rosuvastatin [From Crestor] AdvReac Unknown Unknown Verified 05/17/22 11:31 sertraline [From Zoloft] AdvReac Unknown Unknown Verified 05/17/22 11:31 sulfamethoxazole AdvReac Unknown Unknown Verified 05/17/22 11:31 [From ] trimethoprim [From ] AdvReac Unknown Unknown Verified 05/17/22 11:31 NSAIDS (Non-Steroidal AdvReac Other Verified 05/17/22 11:31 Anti-Inflamma Family History Mother Hypertension CAD (coronary artery disease) Diabetes Anemia Arthritis History of blood clots Myocardial infarction, Onset Age: 70 Heart disease High cholesterol Father Angina pectoris Alzheimer disease Surgical History History of arthroscopy of right shoulder History of carpal tunnel surgery History of cholecystectomy Hx of appendectomy Hx of arthroscopy of right knee Presence of coronary angioplasty implant and graft (~03/28/18) Social History Smoking Status: Never smoker Electronic Cigarette Use: not used second hand exposure: No alcohol intake: current alcohol intake frequency: holidays/special occasions only details: non drinker substance use type: does not use caffeine: Yes Type: coffee Number of servings: 3 frequency: does not exercise azar/jehovah's witness: Shinto seatbelt use: never ROS ROS ED Constitutional Constitutional ED: Denies chills, fever(s) or sweats Eyes Eyes: Denies change in vision ENT ENT ED: Denies dysphagia or sore throat Cardiovascular Cardiovascular: Reports chest pain; Denies leg edema, palpitations or racing heartbeat Respiratory/Chest Respiratory/Chest: Reports cough; Denies dyspnea or dyspnea on exertion Gastrointestinal Gastrointestinal: Denies abdominal pain, diarrhea, nausea or vomiting Genitourinary Genitourinary ED: Denies dysuria, hematuria or urinary frequency Musculoskeletal Musculoskeletal: Denies back pain, extremity pain or neck pain Integumentary Denies rash or wounds Neurologic Neurologic: Denies headache(s), paresthesias or weakness EXAM Physical Exam Const Vital Signs: 07/18/22 03:49 07/18/22 03:56 07/18/22 04:38 Temperature 96.7 F L Temperature Source Temporal Pulse Rate 63 58 L Respiratory Rate 16 12 Respiratory Effort Non-Labored Respiratory Pattern Normal Blood Pressure 154/68 H Blood Pressure Mean 96 Pulse Ox 92 Oxygen Delivery Method Room Air Positive well nourished and well developed General Appearance ED: well developed and NAD HEENT Reports TM's clear and moist mucous membranes HEENT Narrative: No sinus tenderness no swollen turbinates. No posterior pharyngeal erythema. TMs were normal bilaterally. normocephalic and atraumatic Tympanic Membrane ED: Yes TM's clear Eyes PERRL, EOMs intact bilaterally and conjunctivae normal General Eye ED: Yes normal appearance of both eyes Neck no lymphadenopathy and supple General: Negative for tenderness Chest Wall Chest: Negative for tenderness Resp normal respiratory effort and normal air movement Effort and Inspection: symmetric chest movement; Negative for respiratory distress Cardio regular rate, regular rhythm and no murmurs Peripheral Pulses: pulses 2+ throughout GI normal to inspection, nondistended, normoactive bowel sounds and non-tender Palpation: Negative for guarding or rebound tenderness present Back/Spine no CVA tenderness and no thoracic nor lumbar tenderness Extremity normal to inspection General Extremety ED: Negative for edema or tenderness General Extremity: Negative for edema Neuro oriented x3 and no sensory deficits noted Sensorium / Orientation: awake and alert Skin no rashes or lesions noted and no wounds MDM MDM MDM Narrative Medical decision making narrative: Patient presented with chest pain increasing cough with postnasal drainage. Cardiac work-up negative per algorithm. EKG normal. Two-view chest x-ray reviewed by myself read by radiology shows no infiltrates. She is given aerosol treatments states increasing drainage and helping with symptoms. Provided antihistamine in the ED along prescription to help with drainage. MDI inhaler to help with symptoms. She will take her last dose of Levaquin tomorrow. Discussed no indication for further antibiotics as her symptoms proving her sinuses. Symptom control with monitoring and return precautions. Labs notes chronic kidney disease creatinine 1.9 high end of her range. She has been tolerating oral fluids at home. Clinically not dehydrated. All questions were answered. Lab Data Attestation: I reviewed the patient's lab results. Labs: Laboratory Results - last 24 hr 07/18/22 07/18/22 04:09 04:09 WBC 4.9 RBC 3.80 L Hgb 12.4 Hct 37.0 MCV 97.4 MCH 32.6 H MCHC 33.5 RDW Std Deviation 51.8 H RDW Coeff of Kayleen 14.5 Plt Count 183 MPV 9.6 Immature Gran % (Auto) 0.400 Neut % (Auto) 50.2 Lymph % (Auto) 30.4 [place] % (Auto) 14.4 H Eos % (Auto) 4.0 Baso % (Auto) 0.6 Absolute Neuts (auto) 2.5 Absolute Lymphs (auto) 1.50 Nucleated RBC % 0 Sodium 135 L Potassium 4.0 Chloride 103 Carbon Dioxide 22.0 Anion Gap 10 BUN 43 H Creatinine 1.91 H Estim Creat Clear Calc 22.02 Est GFR (MDRD) Af Amer 33 L Est GFR (MDRD) Non-Af 27 L BUN/Creatinine Ratio 22.5 H Glucose 109 H Calcium 8.8 Troponin I High Sens < 3 L Radiography Diagnostic Testing: Clinical Impression(s) from Imaging Studies Chest X-Ray 07/18/22 04:30 IMPRESSION: Degenerative changes, as described above. No demonstrated acute cardiopulmonary process. Electronically Signed: Blanca Badillo MD at 4:55 EDT , EKG Initial EKG: Attestation: I personally reviewed and interpreted this EKG as follows: Comments: Sinus rate of 62, no ST or T wave changes. Discharge Plan Triage Chief Complaint: Chest Pain ED Provider: Emil Roberson Dx/Rx/DC Orders Clinical Impression: Bronchitis, CKD (chronic kidney disease) stage 3, GFR 30-59 ml/min, Presence of stent in coronary artery, Essential hypertension, Post-nasal drip, Chest pain Instructions: CKD Dc, ED Chest Pain, Noncardiac, ED Bronchitis with Wheezing (Adult) Prescriptions: New cetirizine [All Day Allergy (cetirizine)] 10 mg tablet 10 mg PO DAILY PRN (Reason: postnasal drainage) Qty: 30 0RF No Action lisinopril 20 mg tablet 20 mg PO DAILY citalopram 40 mg tablet 20 mg PO BID multivitamin Tablet 1 tab PO DAILY cholecalciferol (vitamin D3) 50 mcg (2,000 unit) capsule 50 mcg PO DAILY memantine 10 mg tablet 10 mg PO QAM Qty: 90 1RF donepezil 5 mg tablet 5 mg PO QAM Qty: 90 1RF allopurinol 100 mg tablet 100 mg PO BID clopidogrel 75 MG tablet 75 mg PO DAILY metoprolol tartrate 25 MG tablet 25 mg PO BID 0RF furosemide 40 mg tablet 40 mg PO DAILY (DME) blood-glucose meter [True Metrix Glucose Meter] Misc See Rx Instructions .Route Qty: 1 0RF Rx Instructions: As directed (DME) True Metrix Glucose Test Strip Strip See Rx Instructions .Route Qty: 50 8RF Rx Instructions: daily Repatha Syringe 140 mg/mL syringe 140 mg subcut Q2W Qty: 2 11RF repaglinide 2 mg tablet 4 mg PO TID Qty: 360 2RF Rx Instructions: administer within 30 minutes of a meal or snack Primary Care Provider: Sachin Almanza Referrals: Sachin Almanza, DO [Primary Care Provider] - 3-5 Days if not improving Activity Restrictions/Additional Instructions: EKG cardiac work-up negative. Chest x-ray negative for any pneumonia. Inhaler as needed. Use allergy medicine as prescribed. Follow-up with your doctor. Return if any worsening symptoms. Disposition Disposition: Home, Self Care
[2022-07-18 04:26] LABS: Absolute Neutrophil Count 2.5 X10^3/uL (2.0-7.7); Basophil# 0.03 X10^3/uL; Basophil% 0.6 % (0-1); Hemoglobin 12.4 g/dL (12.0-15.0); Lymphocyte % 30.4 % (19-41); Mean Corp Hgb Conc 33.5 g/dL (32-36); Mean Corpuscular Hgb 32.6 pg (27.0-32.0); Mean Corpuscular Volume 97.4 fL (81-99); Mean Platelet Vol. 9.6 fl (6.2-12.0); Monocyte# 0.71 X10^3/uL; Monocyte% 14.4 % (0-10); NRBC Flagged by Analyzer 0 % (0-5); Neutrophil # 2.48 X10^3/uL (2.7-7.7); Neutrophil % 50.2 % (47-70); Platelet Count 183 K/mm3 (150-450); RBC Distribution Width CV 14.5 % (11.6-14.6); RBC Distribution Width SD 51.8 fl (35.1-43.9); White Blood Count 4.9 K/mm3 (4.4-11.0)
--- NOTE | 2022-07-18 04:30 | RAD_ITS ---
STUDY: X-RAY CHEST REASON FOR EXAM: Female, 71 years old. cough TECHNIQUE: Frontal and lateral views of the chest. COMPARISON: None. FINDINGS: The lungs are clear and expanded. There is no demonstrated pleural abnormality. Normal size heart. Normal mediastinum and meg. Normal visualized pulmonary arteries. Normal visualized aortic arch and descending thoracic aorta. There are diffuse degenerative changes of the visualized thoracic spine. There is degenerative osteoarthritis of the left ureter. The right shoulder arthroplasty. There is no demonstrated abnormality of the visualized soft tissue structures of the upper abdomen. RAD/Chest PA and Lateral IMPRESSION: Degenerative changes, as described above. No demonstrated acute cardiopulmonary process. Electronically Signed: Blanca Badillo MD at 4:55 EDT ,
[2022-07-18] MEDS: Ipratropium/Albuterol Sulfate 3 ML AMPUL.NEB INHALATION (04:36)
[2022-07-18 04:38] VITALS: PULSE 58; RESP 12
[2022-07-18 04:45] LABS: Anion Gap 10 (5-15); BUN 43 mg/dL (7-18); BUN/Creat Ratio 22.5 RATIO (10-20); Calcium,Total 8.8 mg/dL (8.5-10.1); Chloride 103 mmol/L (98-107); Creatinine, Serum 1.91 mg/dL (0.55-1.02); EST Glomerular Filtration Rate 27 mL/min (>60); Est Glom Filt Rate - Afr Amer 33 mL/min (>60); Estimated Creatinine Clearance 22.02 ml/min; Glucose 109 mg/dL (74-106); Sodium Level 135 mmol/L (136-145); Troponin-I HS < 3 pg/mL (3.0-54.0)
[2022-07-18] MEDS: Loratadine 10 MG Tablet PO (05:15)
[2022-07-18] MEDS: Albuterol Sulfate 8 gm Inhaler (60 puffs) 1 PUFF INHALATION (05:22)
[2022-07-18 05:27] VITALS: BP 108/41; PULSE 62; RESP 18; O2SAT 95
== END 2022-07-18 05:30 | disposition home or self-care (01) ==
PROVIDERS: Emergency Provider Emergency Medicine; PCP Family Medicine; Visit Provider Emergency Medicine
DX: J40 Bronchitis, not specified as acute or chronic (principal); I50.9 Heart failure, unspecified; I13.0 Hypertensive heart and chronic kidney disease with heart failure and stage 1 through stage 4 chronic kidney disease, or unspecified chronic kidney disease; E11.22 Type 2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with diabetic chronic kidney disease; N18.30 Chronic kidney disease, stage 3 unspecified; I25.10 Atherosclerotic heart disease of native coronary artery without angina pectoris; E78.00 Pure hypercholesterolemia, unspecified; K21.9 Gastro-esophageal reflux disease without esophagitis; E66.9 Obesity, unspecified; Z79.02 Long term (current) use of antithrombotics/antiplatelets; Z79.899 Other long term (current) drug therapy; Z95.5 Presence of coronary angioplasty implant and graft; Z95.1 Presence of aortocoronary bypass graft
CPT/HCPCS: 71046; 80048; 84484; 85025; 93005; 94640; 99284; A4216

== ENCOUNTER → 2022-08-30 | Outpatient (CLI) | payer MEDICARE, OTHER, SELFPAY ==
[2020-05-13 13:37] VITALS: BMI 56.3
== END | disposition home or self-care (01) ==
LOC: LABSPEC 10:14
PROVIDERS: PCP Family Medicine; Visit Provider Family Medicine
DX: R05.9 Cough, unspecified (principal)
CPT/HCPCS: 87070; 87077; 87186; 87205

== ENCOUNTER → 2022-10-28 | Outpatient (CLI) | payer MEDICARE, OTHER, SELFPAY ==
[2020-05-13 13:37] VITALS: BMI 56.3
[2022-10-28 13:26] LABS: Hematocrit 44.2 % (37-47); Hemoglobin 14.2 g/dL (12.0-15.0); Mean Corp Hgb Conc 32.1 g/dL (32-36); Mean Corpuscular Hgb 31.2 pg (27.0-32.0); Mean Corpuscular Volume 97.1 fL (81-99); Mean Platelet Vol. 10.2 fl (6.2-12.0); Platelet Count 248 K/mm3 (150-450); RBC Distribution Width CV 13.5 % (11.6-14.6); RBC Distribution Width SD 48.1 fl (35.1-43.9); Red Blood Count 4.55 M/mm3 (4.2-5.4); White Blood Count 9.4 K/mm3 (4.4-11.0)
[2022-10-28 13:47] LABS: ALB/GLOB Ratio 1.1 RATIO (0.9-2.4); AST(SGOT) 22 U/L (15-37); Alanine Aminotransfer ALT/SGPT 36 U/L (13-56); Alkaline Phosphatase 78 U/L (45-117); Anion Gap 13 (5-15); BUN 67 mg/dL (7-18); BUN/Creat Ratio 35.3 RATIO (10-20); Calcium,Total 10.1 mg/dL (8.5-10.1); Chloride 106 mmol/L (98-107); EST Glomerular Filtration Rate 28 mL/min (>60); Est Glom Filt Rate - Afr Amer 33 mL/min (>60); Globulin 3.6 g/dL (2.2-4.2); Glucose 214 mg/dL (74-106); Potassium 4.6 mmol/L (3.5-5.1); Protein, Total 7.6 g/dL (6.4-8.2); Sodium Level 137 mmol/L (136-145)
== END | disposition home or self-care (01) ==
LOC: POLAB3 10:37
PROVIDERS: PCP Family Medicine; Visit Provider Internal Medicine Nephrology
DX: N18.32 Chronic kidney disease, stage 3b (principal)
CPT/HCPCS: 36415; 80053; 82306; 85027

== ENCOUNTER → 2023-02-22 | Outpatient (CLI) | payer MEDICARE, OTHER, SELFPAY ==
[2020-05-13 13:37] VITALS: BMI 56.3
[2023-02-22 12:53] LABS: Albumin, Serum 3.7 g/dL (3.2-5.0); BUN 30 mg/dL (7-18); BUN/Creat Ratio 24.4 RATIO (10-20); Chloride 111 mmol/L (98-107); Creatinine, Serum 1.23 mg/dL (0.55-1.02); EST Glomerular Filtration Rate 45 mL/min (>60); Est Glom Filt Rate - Afr Amer 55 mL/min (>60); Glucose 130 mg/dL (74-106); Phosphorus 2.3 mg/dL (2.5-4.9); Potassium 4.1 mmol/L (3.5-5.1); Sodium Level 137 mmol/L (136-145)
[2023-02-22 13:06] LABS: Hemoglobin A1c 7.1 % (3.8-5.6)
== END | disposition home or self-care (01) ==
LOC: LAB 11:17
PROVIDERS: Nurse Practitioner Family; PCP Family Medicine; Referring Provider Internal Medicine Nephrology; Visit Provider Internal Medicine Nephrology
DX: N18.32 Chronic kidney disease, stage 3b (principal); E11.22 Type 2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with diabetic chronic kidney disease
CPT/HCPCS: 80069; 83036

== ENCOUNTER → 2023-09-30 | Outpatient (CLI) | payer MEDICARE, OTHER, SELFPAY ==
[2020-05-13 13:37] VITALS: BMI 56.3
--- OUTSIDE RECORDS SUMMARY | 2023-09-30 12:52 | XMS RPT_ITS | CCD ---
Author Name Unknown Address [address] [place] [address] Organization [facility] Care Team Providers Care Dental Service Technician Name Role Phone RAGHUNATHAN, DORIE Unavailable Unavailable MARGOT, THAI A Unavailable Unavailable RAGHUNATHAN, DORIE Unavailable Unavailable MARGOT, THAI A Unavailable Unavailable RAGHUNATHAN, DORIE Unavailable Unavailable MARGOT, THAI A Unavailable Unavailable Blancakrissy RUSSELL, Nan A [facility] Provider [facility] Aston FINLEY, New Unavailable Blanca RUSSELL, Nan A Primary Care Provider Kristina, Art Unavailable Aston FILNEY, New Unavailable Maximilian Osman MD Unavailable Blanca RUSSELL, Nan A Primary Care Provider Kristina, Art Unavailable Maximilian Osman MD Unavailable NAN ALMANZA A Primary Care Unavailable BHARATH DILLON Attending Unavailable BLANCA, NAN A Primary Care Unavailable BLANCA NAN A Referring Unavailable OLAMIDE ROWELL Attending Unavailable BLANCA, NAN A Primary Care Unavailable BLANCANAN YANEZ A Referring Unavailable MARTINE AMIN Attending Unavailable BLANCA, NAN A Primary Care Unavailable BLANCA, NAN A Referring Unavailable TIFFANY ESCOBEDO Attending Unavailable BLANCA, NAN A Primary Care Unavailable BHARATH DILLON Attending Unavailable BLANCA, NAN A Primary Care Unavailable DIAMANTE ESPINOSA Attending Unavailable BLANCA, NAN A Primary Care Unavailable BLANCA, NAN A Referring Unavailable TOM, SANDRA Attending Unavailable BLANCA, NAN A Primary Care Unavailable TOM, SANDRA Referring Unavailable BLANCA, NAN A Primary Care Unavailable BLNACA, NAN A Referring Unavailable GROMOVSKATARINA, MARTINE King Attending Unavailable BLANCA, NAN A Primary Care Unavailable BLANCA, ANN A Referring Unavailable BECHTER, TIFFANY Attending Unavailable BLANCA, NAN A Primary Care Unavailable BLANCA, NAN A Referring Unavailable BECHTER, TIFFANY Attending Unavailable BLANCA, NAN A Primary Care Unavailable GROMOVSKY, MARTINE King Attending Unavailable BLANCA, NAN A Primary Care Unavailable LUDWICZAK, OLAMIDE Attending Unavailable BLANCA, ANN A Primary Care Unavailable BALDERRAMA, JACQUE Attending Unavailable BLANCA, NAN A Primary Care Unavailable BLANCA, NAN A Referring Unavailable LUDWICZAK, OLAMDIE Attending Unavailable BLANCA, NAN A Primary Care Unavailable BALDERRAMA, JACQUE Referring Unavailable DILLON, BHARATH Attending Unavailable BLANCA, NAN A Primary Care Unavailable BLANCA, NAN A Referring Unavailable BALDERRAMA, JACQUE Attending Unavailable BLANCA, NAN A Primary Care Unavailable BLANCA, NAN A Referring Unavailable GROMOVSKY, MARTINE King Attending Unavailable Blanca DO, Nan A Primary Care Provider Roof, Art Unavailable Aston FINLEY, New Unavailable Dawson FINLEY, Maximilian Rae Unavailable [phone] Allergies Allergy Classification Reported Allergen(s) Allergy Type Date of Onset Reaction(s) Facility (20 sources) Amoxicillin / Clavulanate; Translations: [AMOXICILLIN-POT CLAVULANATE] Drug Allergy 07-22-20 05 [facility] Work Phone: (20 sources) clorazepate; Translations: [CLORAZEPATE DIPOTASSIUM] Drug Allergy 07-22-20 05 [facility] (20 sources) exenatide; Translations: [EXENATIDE] Drug Allergy 05-19-20 11 [facility] Work Phone: (20 sources) ezetimibe; Translations: [EZETIMIBE] Drug Allergy 07-22-20 05 [facility] Work Phone: (20 sources) fluticasone; Translations: [FLUTICASONE PROPIONATE] Drug Allergy 07-22-20 05 [facility] (20 sources) guaiFENesin; Translations: [GUAIFENESIN] Drug Allergy 07-22-20 05 [facility] (17 sources) HMG-CoA reductase inhibitor; Translations: [APSHHOX-GHW-HBO REDUCTASE INHIBITORS] Drug Intolerance 06-10-20 14 Other: See Comments [facility] Work Phone: (20 sources) Indomethacin; Translations: [INDOMETHACIN SODIUM] Drug Allergy 07-22-20 05 [facility] Work Phone: (20 sources) Ketoprofen; Translations: [KETOPROFEN] Drug Allergy 07-22-20 05 [facility] Work Phone: (20 sources) meloxicam; Translations: [MELOXICAM] Drug Allergy 02-24-20 16 Other: See Comments [facility] (20 sources) Naproxen; Translations: [NAPROXEN] Drug Allergy 11-27-19 09 Anaphylaxis [facility] Work Phone: (20 sources) Neomycin; Translations: [NEOMYCIN] Drug Allergy 07-22-20 05 [facility] Work Phone: (20 sources) Nizatidine; Translations: [NIZATIDINE] Drug Allergy 07-22-20 05 [facility] (20 sources) predniSONE; Translations: [PREDNISONE] Drug Allergy 11-27-19 09 [facility] Work Phone: (20 sources) raNITIdine; Translations: [RANITIDINE HCL] Drug Allergy 07-22-20 05 [facility] (20 sources) rosuvastatin; Translations: [ROSUVASTATIN CALCIUM] Drug Allergy 07-22-20 05 [facility] Work Phone: (20 sources) Sertraline; Translations: [SERTRALINE HCL] Drug Allergy 07-22-20 05 [facility] (20 sources) Sulfamethoxazole / Trimethoprim; Translations: [SULFAMETHOXAZOLE-T RIMETHOPRIM] Drug Allergy 07-22-20 05 [facility] (20 sources) HMG-CoA reductase inhibitor Drug Intolerance 06-10-20 14 Other: See Comments [facility] Work Phone: Medications Current Medications Medication Drug Class(es) Dates Sig (Normalized) Sig (Original) bisacodyl 5 mg delayed release oral tablet (11 sources) Stimulant Laxative Start: 07-03-2021 End: 02-12-2022 Bisacodyl (DULCOLAX) 5 mg tab Use as directed for Miralax / Gatorade Bowel Prep Kit 4 tablet 0 07/03/2021 02/12/2022 Discontinued (Discontinued by Patient) Completed/Discontinued Medications Medication Drug Class(es) Dates Sig (Normalized) Sig (Original) allopurinol 100 mg oral tablet (20 sources) Xanthine Oxidase Inhibitor Start: 12-27-2016 take 1 tablet by mouth once daily allopurinol (ZYLOPRIM) 100 mg tablet Take 1 tablet by mouth once daily. 90 tablet 3 12/27/2016 Active Problems Active Problems Problem Classification Problem Date Documented Da te Episodic/Chronic Administrative/social admission (6 sources) Patient encounter status; Translations: [Dietary counseling and surveillance] Onset: 2 Episodic Chronic kidney disease (20 sources) Chronic kidney disease stage 3; Translations: [CKD (chronic kidney disease) stage 3, GFR 30-59 ml/min] Onset: 6 09-15-2021 Chronic Chronic kidney disease (1 source) Chronic kidney disease; Translations: [Stage 3a chronic kidney disease (HCC)] Onset: 1 Coronary atherosclerosis and other heart disease (20 sources) Arteriosclerotic vascular disease; Translations: [Atherosclerotic heart disease of [place] coronary artery without angina pectoris] Onset: 3 11-23-2016 Chronic Diabetes mellitus with complications (20 sources) Type 2 diabetes mellitus; Translations: [Type 2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with diabetic chronic kidney disease] Onset: 4 09-09-2014 Chronic Diabetes mellitus without complication (1 source) Type 2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without complications; Translations: [Type 2 diabetes (HCC)] Onset: 2 Chronic Disorders of lipid metabolism (20 sources) Hyperlipidemia; Translations: [Hyperlipidemia, unspecified] Onset: 5 06-30-2015 Chronic Esophageal disorders (20 sources) Gastroesophageal reflux disease; Translations: [Gastro-esophageal reflux disease without esophagitis] Onset: 1 06-01-2016 Chronic Essential hypertension (20 sources) Hypertensive disorder; Translations: [Essential (primary) hypertension] Onset: 7 11-23-2016 Chronic Gout and other crystal arthropathies (20 sources) Gouty arthritis of toe; Translations: [Gout, unspecified] Onset: 7 11-23-2016 Chronic Miscellaneous mental health disorders (2 sources) Psychosomatic factor in physical condition; Translations: [Psychological and behavioral factors associated with disorders or diseases classified elsewhere] Chronic Mood disorders (20 sources) Depressive disorder; Translations: [Other specified depressive episodes] Onset: 9 12-13-2008 Chronic Nutritional deficiencies (20 sources) Vitamin D deficiency; Translations: [Vitamin D deficiency, unspecified] Onset: 0 04-09-2010 Chronic Other aftercare (1 source) long term care administrator (current) use of insulin; Translations: [Type 2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with other specified complication, with long-term current use of insulin (HCC)] Onset: 2 Episodic Other gastrointestinal disorders (1 source) History of bariatric surgical procedure; Translations: [Bariatric surgery status] Episodic Other hereditary and degenerative nervous system conditions (4 sources) Impaired cognition; Translations: [Mild cognitive impairment, so stated] Chronic Other liver diseases (2 sources) Non-alcoholic fatty liver; Translations: [Fatty (change of) liver, not elsewhere classified] Chronic Other liver diseases (1 source) Fatty (change of) liver, not elsewhere classified; Translations: [NAFLD (nonalcoholic fatty liver disease)] Onset: 2 Chronic Other nervous system disorders (4 sources) Impaired cognition; Translations: [Other symptoms and signs involving cognitive functions and awareness] Episodic Other nervous system disorders (1 source) Other symptoms and signs involving cognitive functions and awareness; Translations: [Cognitive deficits] Onset: 2 Episodic Other nutritional; endocrine; and metabolic disorders (20 sources) Body mass index 40+ - severely obese; Translations: [Body mass index (BMI) 50.0-59.9, adult] Onset: 5 03-25-2015 Chronic Other nutritional; endocrine; and metabolic disorders (15 sources) Severe obesity; Translations: [Morbid (severe) obesity due to excess calories] Chronic Other nutritional; endocrine; and metabolic disorders (2 sources) Morbid (severe) obesity due to excess calories; Translations: [Class 3 severe obesity due to excess calories with serious comorbidity and body mass index (BMI) of 50.0 to 59.9 in adult ([facility])] Onset: 2 Chronic Other nutritional; endocrine; and metabolic disorders (2 sources) Body mass index (BMI) 50.0-59.9, adult; Translations: [Class 3 severe obesity due to excess calories with serious comorbidity and body mass index (BMI) of 50.0 to 59.9 in adult ([facility])] Onset: 2 Chronic Residual codes; unclassified (20 sources) Obstructive sleep apnea syndrome; Translations: [Obstructive sleep apnea (adult) (pediatric)] 06-01-2016 Chronic Residual codes; unclassified (2 sources) Obstructive sleep apnea (adult) (pediatric); Translations: [BATSHEVA on CPAP] Onset: 6 Chronic Residual codes; unclassified (1 source) Dependence on other enabling machines and devices; Translations: [BATSHEVA on CPAP] Onset: 6 Chronic Residual codes; unclassified (1 source) Amnesia; Translations: [Other amnesia] Episodic Unclassified (1 source) Established Patient Onset: 2 Past or Other Problems Problem Classification Problem Date Documented Da te Episodic/Chronic Other and unspecified benign neoplasm (20 sources) Benign neoplasm of colon; Translations: [Benign neoplasm of colon, unspecified] Onset: 09-03-2005 09-03-2005 Episodic Results Test Name Value Interpretation Reference Range Facil ity Vital Signs Date Time Vital Sign Value Performing Clinician Faci lity 07-09-2022 13:19-0400 Body height 162.6 cm Diamante Espinosa MD Work Phone: [facility] 07-09-2022 13:19-0400 Body weight 136.53 kg Diamante Espinosa MD Work Phone: [facility] 06-01-2022 08:43-0400 Body height 165.[address] Work Phone: [facility] 06-01-2022 08:43-0400 Body weight 136.[address] Work Phone: [facility] 05-03-2022 13:11-0400 Body height 165.1 cm Martine Wongkatarina PRESIDENT AND CHIEF COMMERCIAL OFFICER.[employer] MANAGER Work Phone: [facility] 05-03-2022 13:11-0400 Body weight 138.8 kg Martine Amin PRESIDENT AND CHIEF COMMERCIAL OFFICER.[employer] MANAGER Work Phone: [facility] 04-27-2022 10:08-0400 Body height 165.1 cm Joe Ayon MD Work Phone: [facility] 04-27-2022 10:08-0400 Body temperature 97.3 [degF] Joe Ayon MD Work Phone: [facility] 04-27-2022 10:08-0400 Body weight 138.35 kg Joe Ayon MD Work Phone: [facility] 04-27-2022 10:08-0400 Diastolic blood pressure 59 mm[Hg] Joe Ayon MD Work Phone: [facility] 04-27-2022 10:08-0400 Heart rate 63 /min Joe Ayon MD Work Phone: [facility] 04-27-2022 10:08-0400 Respiratory rate 16 /min Joe Ayon MD Work Phone: [facility] 04-27-2022 10:08-0400 SaO2% (BldA) [Mass fraction] 94 % Joe Ayon MD Work Phone: [facility] 04-27-2022 10:08-0400 Systolic blood pressure 124 mm[Hg] Joe Ayon MD Work Phone: [facility] 04-05-2022 09:37-0400 Body height 162.[address] Work Phone: [facility] 04-05-2022 09:37-0400 Body weight 138.[address] Work Phone: [facility] 03-08-2022 13:14-0400 Body height 162.[address] Work Phone: [facility] 03-08-2022 13:14-0400 Body weight 140.[address] Work Phone: [facility] 03-08-2022 13:13-0400 Body height 162.6 cm Martine Gromovsky PRESIDENT AND CHIEF COMMERCIAL OFFICER.[employer] MANAGER Work Phone: [facility] 03-08-2022 13:13-0400 Body weight 140.16 kg Martine Gromovsky PRESIDENT AND CHIEF COMMERCIAL OFFICER.[employer] MANAGER Work Phone: [facility] 02-12-2022 08:45-0400 Body height 162.[address] Work Phone: [facility] 02-12-2022 08:45-0400 Body weight 140.[address] Work Phone: [facility] 02-12-2022 08:38-0400 Body height 162.6 cm Sandra Calle MD Work Phone: [facility] 02-12-2022 08:38-0400 Body weight 140.16 kg Sandra Calle MD Work Phone: [facility] 02-12-2022 08:38-0400 Diastolic blood pressure 69 mm[Hg] Sandra Calle MD Work Phone: [facility] 02-12-2022 08:38-0400 Heart rate 86 /min Sandra Calle MD Work Phone: [facility] 02-12-2022 08:38-0400 Systolic blood pressure 118 mm[Hg] Sandra Calle MD Work Phone: [facility] 01-08-2022 13:29-0400 Body height 162.6 cm Martine Gromovsky PRESIDENT AND CHIEF COMMERCIAL OFFICER.[employer] MANAGER Work Phone: [facility] 01-08-2022 13:29-0400 Body weight 139.71 kg Martine Gromovsky PRESIDENT AND CHIEF COMMERCIAL OFFICER.[employer] MANAGER Work Phone: [facility] Encounters Encounter Date Encounter Type Care Provider Facility Start: 07-01-2023 Juany Espinosa MD Work Phone: [facility] Procedures Date Procedure Procedure Detail Performing Clinician Start: 03-04-2022 Radiologic exam upr gi trc double contrast study Sandra Calle MD Work Phone: Start: 02-02-2022 Us abdominal real ti me w/image limited Martine King Matildejose emag ARREOLAGIFT SHOP MANAGER Work Phone: Start: 07-06-2021 Colonoscopy Sandra samuels MD Work Phone: Start: 02-03-2016 Mammography Sandra samuels MD Work Phone: Plan of Treatment Date Care Activity Detail Author Start: 07-06-2024 Colonoscopy COLONOSCOPY [facility] Start: 07-06-2024 COLORECTAL CANCER SCREENING COLORECTAL CANCER SCREENING [facility] Start: 05-20-2023 Covid-19 Vaccine () Covid-19 Vaccine () [facility] Start: 05-20-2023 Influenza vaccination Influenza Vaccine (#1) [facility] Start: 04-27-2023 BP CONTROLLED (<130/80) BP CONTROLLED (<130/80) [facility] Start: 02-12-2023 BP CONTROLLED (<130/80) BP CONTROLLED (<130/80) [facility] Start: 01-20-2023 HEMOGLOBIN/HEMATOCRIT HEMOGLOBIN/HEMATOCRIT [facility] Start: 01-20-2023 SERUM CREATININE SERUM CREATININE [facility] Start: 09-19-2022 Advance Directive Discussion Advance Directive Discussion [facility] Start: 08-28-2022 Urine microalbumin profile [facility] Start: 07-23-2022 Hemoglobin A1c/Hemoglobin.total in Blood HBA1C [facility] Start: 07-09-2022 End: 09-08-2022 Basic metabolic 2000 panel - Serum or Plasma BASIC METABOLIC PNL Lab Routine Dietary counseling and surveillance [Z71.3 (ICD-10-CM)] Class 3 severe obesity due to excess calories with serious comorbidity and body mass index (BMI) of 50.0 to 59.9 in adult (HCC) Type 2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with other specified complication, with long-term current use of insulin (HCC) Expected: 07/09/2022, Expires: 09/08/2022 [facility] Work Phone: Immunizations Immunization Date Immunization Notes Care Provider Babita umana 06-24-2022 influenza virus vacc ine, unspecified formulation Diamante Espinosa MD Work Phone: [facility] 09-14-2021 zoster vaccine recombinant Tiffany Escobedo RD Work Phone: [facility] 07-09-2021 zoster vaccine recombinant Tiffany Escobedo RD Work Phone: [facility] 07-29-2020 influenza, seasonal, injectable, preservative free Martine Gromovsky PRESIDENT AND CHIEF COMMERCIAL OFFICER.[employer] MANAGER Work Phone: [facility] 07-29-2020 pneumococcal polysaccharide vaccine, 23 valent Martine Gromovsky PRESIDENT AND CHIEF COMMERCIAL OFFICER.[employer] MANAGER Work Phone: [facility] 10-30-2019 influenza, seasonal, injectable, preservative free Martine Gromovsky PRESIDENT AND CHIEF COMMERCIAL OFFICER.[employer] MANAGER Work Phone: [facility] 10-30-2019 pneumococcal polysaccharide vaccine, 23 valent Martine Gromovsky PRESIDENT AND CHIEF COMMERCIAL OFFICER.[employer] MANAGER Work Phone: [facility] 06-21-2019 Seasonal trivalent influenza vaccine, adjuvanted, preservative free Tiffany Escobedo RD Work Phone: [facility] 06-19-2019 influenza, seasonal, injectable, preservative free Tiffany Escobedo RD Work Phone: [facility] 09-01-2018 influenza, seasonal, injectable, preservative free Martine Gromovsky PRESIDENT AND CHIEF COMMERCIAL OFFICER.[employer] MANAGER Work Phone: [facility] 09-01-2018 pneumococcal polysaccharide vaccine, 23 valent Martine Gromovsky PRESIDENT AND CHIEF COMMERCIAL OFFICER.[employer] SH[employer] MANAGER Work Phone: [facility] 07-05-2017 influenza, seasonal, injectable, preservative free Martine Gromovsky PRESIDENT AND CHIEF COMMERCIAL OFFICER.[employer] MANAGER Work Phone: [facility] 07-05-2017 pneumococcal polysaccharide vaccine, 23 valent Martine Gromovsky PRESIDENT AND CHIEF COMMERCIAL OFFICER.[employer]IFT SH[employer] MANAGER Work Phone: [facility] 06-25-2017 influenza, high dose seasonal, preservative-free Sandra Calle MD Work Phone: [facility] Work Phone: 06-19-2017 influenza, seasonal, injectable, preservative free Tiffany Escobedo RD Work Phone: [facility] 06-01-2016 influenza, high dose seasonal, preservative-free Sandra Calle MD Work Phone: [facility] 01-27-2016 pneumococcal polysaccharide vaccine, 23 valent Sandra Calle MD Work Phone: [facility] 07-10-2015 influenza, injectabl e, quadrivalent, contains preservative Sandra Calle MD Work Phone: [facility] 07-10-2015 influenza, seasonal, injectable, preservative free Tiffany Escobedo RD Work Phone: [facility] 12-24-2014 pneumococcal conjuga te vaccine, 13 valent Sandra Calle MD Work Phone: [facility] 06-10-2014 influenza, seasonal, injectable Sandra Calle MD Work Phone: [facility] 08-28-2012 tetanus toxoid, redu mallorie diphtheria toxoid, and acellular pertussis vaccine, adsorbed Sandra Calle MD Work Phone: [facility] Work Phone: 07-08-2012 influenza virus vacc ine, unspecified formulation Sandra Calle MD Work Phone: [facility] Work Phone: 07-28-2011 influenza virus vacc ine, unspecified formulation Sandra Calle MD Work Phone: [facility] 07-28-2011 zoster vaccine, live Sandra Calle MD Work Phone: [facility] 06-26-2010 influenza virus vacc ine, unspecified formulation Sandra Calle MD Work Phone: [facility] 06-21-2009 influenza virus vacc ine, unspecified formulation Sandra Calle MD Work Phone: [facility] Work Phone: 08-17-2002 pneumococcal polysaccharide vaccine, 23 malik Calle MD Work Phone: [facility] Work Phone: Payers Date Payer Category Payer Medicare [id number] 2019 Unknown MMO MMO MEDICARE SUPPLEMENT [id number] 2019-Present [phone] [address] [place] [address] Indemnity [id number] 2019 Unknown MMO MMO MEDICARE SUPPLEMENT [id number] 2019-Present [phone] [address] [place] [address] Indemnity [id number] 2017 Medicare [id number] 2014 Medicare MEDICARE MEDICAR E A AND B [id number] 2014-Present [phone] [address] [address] [place] [address] Medicare [id number] 2014 Medicare MEDICARE MEDICAR E A AND B [id number] 2014-Present [phone] [place] [address] Medicare [id number] 2014 Medicare [id number] Social History Date Type Detail Facility Start: 02-22-2011 Tobacco smoking stat us AZIS Never smoked tobacco [facility] Start: 07-06-2021 End: 07-09-2022 Alcohol intake Current non-drinker of alcohol (finding) [facility] Start: 1950 Sex Assigned At Not on file [facility] Start: 1950 Sex Assigned At Female [facility] Start: 01-19-2022 End: 04-27-2022 Exposure to SARS-CoV-2 (event) Not sure [facility] Start: 02-22-2011 Tobacco use and exposure Smokeless tobacco non-user [facility] Work Phone: Start: 07-09-2022 End: 10-11-2022 History of Social function [facility] Start: 07-09-2022 End: 10-11-2022 Tobacco use panel [facility] Adult Depression Screening Assessment 1 [facility] Start: 12-30-2021 Gender identity Identifies as female gender (finding) [facility] Start: 12-30-2021 Sexual orientation Heterosexual (joselin delaney) [facility] Medical Equipment Procedure Code Equipment Code Equipment Origin al Text Equipment Identifier Dates Start: 06-18-2016 Goals Date Patient Goal Desired Activity /State Personal health goal Personal health goal Clinical Notes 03-06-2015 to 08-05-2022 Telephone Encounter - Jaky Zheng - 08/05/2022 8:45 AM Samia Espinosa MD - 07/09/2022 1:28 PM EDTTelephone Encounter - Lexi Barrientos MA - 07/08/2022 2:32 PM EDTPatient Instructions Note Date & Type Note Facility 08-05-2022 Miscellaneous Notes Signed and faxed supply order to [facility]. Jaky Zheng documented in this encounter [facility] 07-09-2022 Note HNO ID: [id number] Author: Diamante Espinosa MD Service: ? Author Type: Physician Type: Progress Notes Filed: 07/09/2022 4:00 PM Note Text: Diamante Espinosa MD [facility] [address] [facility], [facility] [address] [place], [place] [address] This Team Access Model visit is a virtual visit due to COVID -19 Pandemic . It required patient-provider interaction for the medical decision making as documented below. Consent was obtained to complete today's distance health visit. SUBJECTIVE: Paula Olson is a 71 year old female with PMX of has a past medical history of Acute gastritis without mention of hemorrhage, Allergic rhinitis, cause unspecified, ASCVD (arteriosclerotic cardiovascular disease) (02/17/2003), Benign neoplasm of colon (09/03/2005), CKD (chronic kidney disease) stage 3, GFR 30-59 ml/min ([facility]) (06/01/2016), Depressive disorder, not elsewhere classified (12/13/2008), Diabetes ([facility]) (08/19/1993), DM type 2 causing CKD stage 4 ([facility]) (09/09/2014), GERD (gastroesophageal reflux disease) (12/01/2010), Gout involving toe (11/23/2016), Hyperlipidemia (06/30/2015), Hypertension (), NM (myocardial infarction) ([facility]), Morbid obesity ([facility]), BATSHEVA on CPAP, Postmenopausal atrophic vaginitis (05/15/2012), Renal failure, Snoring, Trigeminal nerve disorder, unspecified, Umbilical hernia without mention of obstruction or gangrene, and Vitamin D deficiency (04/09/2010). who presents on July 09, 2022 for medical evaluation of Non-Surgical Metabolic Weight Management . Age at onset - early adult years. Rate of weight gain is described as gradual over years. Family history positive for obesity in the patient?s patient. She considers ideal weight to be 200. Previous treatments include self-directed dieting. WT WATCHERS Lifestyle Factors: Diet: Do you think that you have a healthy diet? No. Overall characterization of present diet:unhealthy snacking./EATING THE WRONG STUFF How have you tried to lose weight in the past? Yes.. Routine NO SPECIFIC ROUTINE Breakfast: 10 am coffee Drinks water Lunch:makes lot of soup /pasta/ Wrong choices Its been harder to think of a Menu Dinner: - Usually nothing heavy after 7 Cream of wheat / oatmeal Doesn't sleep until 4 am Snack: Bedtime Sleeps: Wake up:no snacking Exercise: Do you exercise ? No Are you able to walk up a flight of stairs or a small hill? Yes If no, why not? Due to stemina . Patient's functional capacity is <4 METS. The composite complication rate of , unstable angina, NM, DVT, PE, renal failure, and stroke occurred in 16.6% of severely obese patients whose peak oxygen consumption was < 15.8 mL/kg/min but in only 2.8% of those whose cardiorespiratory fitness was >/= 15.8 mL/kg/min. By convention, 1 MET is considered equivalent to the consumption of 3.5 ml O2?kg-1?min-1 (or 3.5 ml of oxygen per kilogram of body mass per minute) and is roughly equivalent to the expenditure of 1 kcal per kilogram of body weight per hour. Sleep: Duration: > 6 hours:Yes Sleep apnea screen: If patient has been diagnosed with sleep apnea, has there been significant weight gain and are there any SDB symptoms on the current CPAP/BIPAP pressure setting: Yes. Chest pain, SOB, or ESCOBAR: No Stress test: no History of eating disorders: negative Associated medical conditions: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and hypertension Associated medications: none Cardiovascular risk factors: none Current Outpatient Medications on File Prior to Visit Medication Sig metoprolol tartrate, short acting, (LOPRESSOR) 25 mg tablet Take 25 mg by mouth twice daily. repaglinide (PRANDIN) 2 mg tablet Take by mouth three times daily before meals. memantine (NAMENDA) 10 mg tablet Take 10 mg by mouth once daily. clopidogrel (PLAVIX) 75 mg tablet clopidogrel 75 mg tablet donepezil (ARICEPT) 10 mg tablet 5 mg once daily. Takes in am allopurinol (ZYLOPRIM) 100 mg tablet Take 1 tablet by mouth once daily. (Patient taking differently: Take 100 mg by mouth twice daily.) lisinopril (ZESTRIL, PRINIVIL) 20 mg tablet Take 1 tablet by mouth once daily. citalopram (CELEXA) 20 mg tablet Take 1 tablet by mouth twice daily. Blood-Glucose Meter [facility] Dispense 1 kit blood sugar diagnostic (BLOOD GLUCOSE TEST) test strip Test blood sugar(s) 2 xdaily. Dx: E11.22. Insulin: No Lancets lancets Test blood sugar(s) 2 x daily. Dx: E11.22. Insulin: No omeprazole (PRILOSEC) 20 mg capsule Take 1 capsule by mouth twice daily. furosemide (LASIX) 40 mg tablet Take 1 tablet by mouth twice daily as needed. (Patient taking differently: Take 40 mg by mouth once daily.) No current facility-administered medications on file prior to visit. ALLERGIES Allergen Reactions Naproxyn [Naproxen] Anaphylaxis given at the same time as prednisone, cannot take together. Had internal bleeding. Predniso (more content not included)... [facility] 07-09-2022 History of Present illness Narrative Images from the original note were not included. Diamante Espinosa MD [facility] [address] [facility], [address] [facility] [employer] [facility] - Fourth Floor [place] [phone] This Team Access Model visit is a virtual visit due to COVID -19 Pandemic . It required patient-provider interaction for the medical decision making as documented below. Consent was obtained to complete today's distance health visit. SUBJECTIVE: Paula Olson is a 71 year old female with PMX of has a past medical history of Acute gastritis without mention of hemorrhage, Allergic rhinitis, cause unspecified, ASCVD (arteriosclerotic cardiovascular disease) (02/17/2003), Benign neoplasm of colon (09/03/2005), CKD (chronic kidney disease) stage 3, GFR 30-59 ml/min ([facility]) (06/01/2016), Depressive disorder, not elsewhere classified (12/13/2008), Diabetes ([facility]) (08/19/1993), DM type 2 causing CKD stage 4 ([facility]) (09/09/2014), GERD (gastroesophageal reflux disease) (12/01/2010), Gout involving toe (11/23/2016), Hyperlipidemia (06/30/2015), Hypertension (), NM (myocardial infarction) ([facility]), Morbid obesity ([facility]), BATSHEVA on CPAP, Postmenopausal atrophic vaginitis (05/15/2012), Renal failure, Snoring, Trigeminal nerve disorder, unspecified, Umbilical hernia without mention of obstruction or gangrene, and Vitamin D deficiency (04/09/2010). who presents on July 09, 2022 for medical evaluation of Non-Surgical Metabolic Weight Management . Age at onset - early adult years. Rate of weight gain is described as gradual over years. Family history positive for obesity in the patient s patient. She considers ideal weight to be 200. Previous treatments include self-directed dieting. WT WATCHERS Lifestyle Factors: Diet: Do you think that you have a healthy diet? No. Overall characterization of present diet:unhealthy snacking./EATING THE WRONG STUFF How have you tried to lose weight in the past? Yes.. Routine NO SPECIFIC ROUTINE Breakfast: 10 am coffee Drinks water Lunch:makes lot of soup /pasta/ Wrong choices Its been harder to think of a Menu Dinner: - Usually nothing heavy after 7 Cream of wheat / oatmeal Doesn't sleep until 4 am Snack: Bedtime Sleeps: Wake up:no snacking Exercise: Do you exercise ? No Are you able to walk up a flight of stairs or a small hill? Yes If no, why not? Due to stemina . Patient's functional capacity is <4 METS. The composite complication rate of , unstable angina, NM, DVT, PE, renal failure, and stroke occurred in 16.6% of severely obese patients whose peak oxygen consumption was < 15.8 mL/kg/min but in only 2.8% of those whose cardiorespiratory fitness was >/= 15.8 mL/kg/min. By convention, 1 MET is considered equivalent to the consumption of 3.5 ml O2 kg-1 min-1 (or 3.5 ml of oxygen per kilogram of body mass per minute) and is roughly equivalent to the expenditure of 1 kcal per kilogram of body weight per hour. Sleep: Duration: > 6 hours:Yes Sleep apnea screen: If patient has been diagnosed with sleep apnea, has there been significant weight gain and are there any SDB symptoms on the current CPAP/BIPAP pressure setting: Yes. Chest pain, SOB, or ESCOBAR: No Stress test: no History of eating disorders: negative Associated medical conditions: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and hypertension Associated medications: none Cardiovascular risk factors: none Current Outpatient Medications on File Prior to Visit Medication Sig metoprolol tartrate, short acting, (LOPRESSOR) 25 mg tablet Take 25 mg by mouth twice daily. repaglinide (PRANDIN) 2 mg tablet Take by mouth three times daily before meals. memantine (NAMENDA) 10 mg tablet Take 10 mg by mouth once daily. clopidogrel (PLAVIX) 75 mg tablet clopidogrel 75 mg tablet donepezil (ARICEPT) 10 mg tablet 5 mg once daily. Takes in am allopurinol (ZYLOPRIM) 100 mg tablet Take 1 tablet by mouth once daily. (Patient taking differently: Take 100 mg by mouth twice daily.) lisinopril (ZESTRIL, PRINIVIL) 20 mg tablet Take 1 tablet by mouth once daily. citalopram (CELEXA) 20 mg tablet Take 1 tablet by mouth twice daily. Blood-Glucose Meter [facility] Dispense 1 kit blood sugar diagnostic (BLOOD GLUCOSE TEST) test strip Test blood sugar(s) 2 xdaily. Dx: E11.22. Insulin: No Lancets lancets Test blood sugar(s) 2 x daily. Dx: E11.22. Insulin: No omeprazole (PRILOSEC) 20 mg capsule Take 1 capsule by mouth twice daily. furosemide (LASIX) 40 mg tablet Take 1 tablet by mouth twice daily as needed. (Patient taking differently: Take 40 mg by mouth once daily.) No current facility-administered medications on file prior to visit. ALLERGIES Allergen Reactions Naproxyn [Naproxen] Anaphylaxis given at the same time as prednisone, cannot take together. Had internal bleeding. Prednisone Cannot be given with Naproxy, had severe internal bleeding was hospitalized. Augmentin [Amoxicil* GI Upset Possibly GI. Can tolerate PCN and Amoxicillin Axid [Nizatidine] Byetta [Exenatide] GI Upset chronic abdominal pain, possibly low level pancreatitis? Crestor [Rosuvastat* Muscle cramps Flonase [Fluticason* headaches Indocin [Indomethac* Mobic [Meloxicam] Other: See Comments Problems with kidneys Naldecon Senior Ex * Neomycin Oruvail [Ketoprofen] Septra [Sulfamethox* Tzgwauo-Zks-Wfe Red* Other: See Comments myalgia Tranxene-Sd [Cloraz* unknown Zantac [Ranitidine * Zetia [Ezetimibe] Joint Stiffness Zoloft [Sertraline * unknown PAST MEDICAL HISTORY Diagnosis Date Acute gastritis without mention of hemorrhage Allergic rhinitis, cause unspecified Allergic rhinitis ASCVD (arteriosclerotic cardiovascular disease) 02/17/2003 Benign neoplasm of colon 09/03/2005 CKD (chronic kidney disease) stage 3, GFR 30-59 ml/min ([facility]) 06/01/2016 Dr. Chairez, nephrology Depressive disorder, not elsewhere classified 12/13/2008 Diabetes ([facility]) 08/19/1993 diagnosed. DM type 2 causing CKD stage 4 ([facility]) 09/09/2014 GERD (gastroesophageal reflux disease) 12/01/2010 Gout involving toe 11/23/2016 Hyperlipidemia 06/30/2015 Hypertension NM (myocardial infarction) ([facility]) Morbid obesity ([facility]) BATSHEVA on CPAP Postmenopausal atrophic vaginitis 05/15/2012 Renal failure Snoring Trigeminal nerve disorder, unspecified Umbilical hernia without mention of obstruction or gangrene Vitamin D deficiency 04/09/2010 PAST SURGICAL HISTORY Procedure Laterality Date APPENDECTOMY 1971 CHOLECYSTECTOMY 1970 Cholecystectomy COLONOSCOPY FLX DX W/COLLJ SPEC WHEN PFRMD 09/03/05 Colonoscopy COLONOSCOPY FLX DX W/COLLJ SPEC WHEN PFRMD 03/06/15 Colonoscopy EGD TRANSORAL BIOPSY SINGLE/MULTIPLE 11/16/2008 EGD TRANSORAL BIOPSY SINGLE/MULTIPLE 12/01/10 ESOPHAGOGASTRODUODENOSCOPY TRANSORAL DIAGNOSTIC 03/06/15 EGD HEART SURGERY HX Heart Stent LEFT HEART CATH,PERCUTANEOUS 02/2003 moderate CAD PAST SURGICAL HISTORY OF Right 07/24/2015 Arthroscopy of Right Shoulder with Synovectomy, debridement of glenohumeral joint, biceps tenotomy, acromioplasty and distal claviculectomy RPR UMBILICAL HRNA 5 YRS/> REDUCIBLE 01/22/08 SINUS SURGERY PROC UNLISTED 04/10/1999 XCAPSL CTRC RMVL INSJ IO LENS PROSTH W/O ECP 03/30/2013 Cataract Extraction with PC IOL Dr Tolentino [facility] XCAPSL CTRC RMVL INSJ IO LENS PROSTH W/O ECP 04/20/2013 Cataract Extraction with PC IOL Dr Tolentino left eye Any problems with anesthesia with the above surgeries: NA FAMILY HISTORY Problem Relation Age of Onset Diabetes Mother Heart Mother Hypertension Mother Lipids Mother Diabetes Maternal Aunt x 2 Social History Tobacco Use Smoking status: Never Smokeless tobacco: Never Substance Use Topics Alcohol use: No Drug use: No Review of Systems Constitutional: Positive for malaise/fatigue. HENT: Negative for congestion and tinnitus. Eyes: Negative for blurred vision. Respiratory: Negative for shortness of breath. Cardiovascular: Negative for palpitations, orthopnea and leg swelling. Gastrointestinal: Positive for heartburn. Negative for nausea and vomiting. Genitourinary: Negative for dysuria and frequency. No kidney stones Musculoskeletal: Positive for joint pain. Negative for back pain. Hip Pain Neurological: Negative for weakness. Hx of pancreatitis due to injectables OBJECTIVE: Ht 162.6 cm (5' 4 ) Wt (!) 136.5 kg (301 lb) LMP 02/01/2006 BMI 51.67 kg/m BMI = Body mass index is 51.67 kg/m . Physical Exam Constitutional:. --no issues with communication during visit and demonstrates understanding via appropriate interaction, verbalizing understanding ans she consented for this visit visit encounter HEENT: Normocephalic and atraumatic. Eyes: Conjunctiva appear normal. No scleral icterus. Hearing: Is grossly intact. Neck: Range of motion appears normal. Thyroid: appears symmetric and not enlarged. Pulmonary/Chest: Effort normal. Psychiatric: Mood, memory, affect and judgment normal. Neurological: alert and oriented to person, place, and time. Possible pancreatitis :medication induced Reviewed principles of energy metabolism, caloric intake and expenditure, and rationale for treatment program. Also reinforced need for reduced calorie, low fat diet and increased physical activity. Diamante Espinosa MD ASSESSMENT/PLAN: 1. Class 3 severe obesity due to excess calories with serious comorbidity and body mass index (BMI) of 50.0 to 59.9 in adult (HCC) - ICD9: 278.01, V85.43, ICD10: E66.01, Z68.43 (primary diagnosis) Weight increasing - Behavioral and pharmacological intervention --Reviewed labs GFR around 37. With her diabetes and insulin resistance we discussed the benefits of adding metformin. Patient and her daughter Isa agrees with this plan and verbalizes understanding. NextI have also reviewed he possibility of using weight loss medications in an effort to reduce her appetite. I have reviewed the different therapeutic options available including We have also reviewed the possibility of using on her medications such as metformin which has been also associated with weight loss. We agreed that trying Metformin could be her best option at this point. I reviewed with the patient pros and cons of taking this medication. I have also asked her check her blood pressure twice a week over the next 2 weeks and let me know if he goes over 150/100. - METFORMIN ER 500 MG TABLET,EXTENDED RELEASE 24 HR - BASIC METABOLIC PNL - HGB A1C Continue to monitor GFR labs have been ordered Also neck step would be adding Topamax. Not a good candidate for GLP-1 with questionable possible history of pancreatitis due to Januvia Imaging studies no lipase levels. It was thought to be pancreatitis 2. BATSHEVA on CPAP - ICD9: 327.23, V46.8, ICD10: G47.33, Z99.89 Encouraged to use his CPAP. 3. Dietary counseling and surveillance [Z71.3 (ICD-10-CM)] - ICD9: V65.3, ICD10: Z71.3 Reviewed principles of energy metabolism, caloric intake and expenditure, and rationale for treatment program. Also reinforced need for reduced calorie, low fat diet and increased physical activity. - METFORMIN ER 500 MG TABLET,EXTENDED RELEASE 24 HR - BASIC METABOLIC PNL - HGB A1C 4. Hypertension, unspecified type - ICD9: 401.9, ICD10: I10 - good control - Recommended regular aerobic exercise. - Recommend home blood pressure monitoring, to bring results in on next visit - Goal of BP <130/80 5. Hyperlipidemia, unspecified hyperlipidemia type - ICD9: 272.4, ICD10: E78.5 - suboptimal control - Discussed the benefits of regular aerobic exercise and weight loss. 6. Type 2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with other specified complication, with long-term current use of insulin (HCC) - ICD9: 250.80, V58.67, ICD10: E11.69, Z79.4 poorly controlled - Add metformin (Glucophage) - METFORMIN ER 500 MG TABLET,EXTENDED RELEASE 24 HR - BASIC METABOLIC PNL - HGB A1C 7. NAFLD (nonalcoholic fatty liver disease) - ICD9: 571.8, ICD10: K76.0 -Weight loss certainly can help. Recommended to cut down on processed food processed carb 9. Stage 3a chronic kidney disease (HCC) - ICD9: 585.3, ICD10: N18.31 - eGFR: Stable - Recommend maintaining A1c < 7% 10. Gastroesophageal reflux disease, unspecified whether esophagitis present - ICD9: 530.81, ICD10: K21.9 - Discussed lifestyle modifications including losing weight, limiting caffeine, no meals three hours before sleep, and head of bed elevation Diamante Espinosa MD Counseling Visit 34minutes for preventive counseling/IBT : including reviewing chart and finishing my notes Screening for obesity completed during initial plan of care. Patient was competent and alert at the time that counseling was provided. 5a's reviewed: Assess- I assessed behavioral health risk/factors affecting --- Asked about/assess behavioral health risk(s) and factors affecting choice of behavior change goals --- somewhat sedentry lifestyle lifestyle --Lack of exercise Lack of routine Not making the best choices with her food. Advise: clear, specific, personalized behavior change advice. -I gave very clear, specific, and personalized behavior change adviced, including information about personal health harms and benefits. Recommended add 60 to 70 ounces of plain water or lemon water Advised to get at least 60-80 g of protein daily. Next Agree: Agree: Patient agrees with selected appropriate treatment goals and methods to change behavior Assist:provided IBT w self-help, handouts, teaching skills and support Using behavior change techniques with self-help and Counseling in achieving Goals. Also discussed supplementing with adjunctive medical treatments when appropriate. Arrange- follow up scheduled, Handouts given to patient My opinion -- 3 hour Rule -last meal /snack 3 hours before sleeping ,try to be done by 7 pm --eat Rich Breakfast - At Least 3 hours break between each meals ,except water --sleep 7 hours at night , that means going to bed early -- drink only water ( no soda or juices) /no Alcohol consumption --cut down on coffee consumption if consuming high amounts Website :You can visit to web site for low carb recipe information as well as visual guide to low carb food: Moxsie Limit carb consumption to 80- 100 grams per day. Goals: formal exercise 2-5 x/week as tolerated, start with 10 mins/day to goal of 30 minutes Have 3 meals a day-protein source with each meal (structured meal planning) Food journal daily and bring it to all appointments -- IN GENERAL - suggestions based on important of our sleep cycle called circadian rhythm and its influence on our gut microbiota and overall health tragetory 1) EAT MOST OF YOUR FOOD IN AM AND EARLY PM 2) NO EATING AT NIGHT 3) EXERCISE DURING DAY 4) BE CONSISTENT WITH MEAL STRUCTURE ie Meals at same time during the day. -- keep record of your food intake - it is easier for us to understand your eating habits and food preferences, looking into the amounts of protein, carbs, and fat in your diet. Good examples of apps to track calories are [employer], LOSE IT. Some patient have found FOODUCATE to help with decisions around food, however choose apps that best suits you. -- for exercise, you should shoot for a goal of >150 min per week initially. Depending at what level you are starting, that may seem like an unachievable task. However, the best plan is to just begin to walk or bike or do another activity that you like and track your steps per day. You do not need to pay attention to the time, but you do need to try to increase your exercise every 3 weeks. Other strength exercises, using light weights or training bands may also be useful, especially when combined with regular aerobic exercise. Studies have shown that >200min per week is best to maintain weight loss, so that would be the overall end goal. -- One option we discussed is to REPLACE one of your meals with a liquid meal or frozen meal. This is easy to start and may help with your weight. 1. Liquid meal replacement (Boost, Ensure) 2. Frozen meal (Healthy Choice, Lean Cuisine - sodium under 650mg, can always add veggies to the meal) 3. Powdered protein (Premier Protein) or meal replacement (I like a plant based meal replacement called 99taojin[employer]com - can mix w froz berries and almond milk) This note was partially generated using [employer] voice recognition system, and there may be some incorrect words, spellings, and punctuation that were not noted in checking the note before saving History Review: I have reviewed and modified as needed, the following during this visit: Allergies, Past Medical History, Past Surgical History, Past Family History, Past Social History. documented in this encounter [facility] 07-08-2022 Miscellaneous Notes Called patient for tomorrows appt reminder. She said her daughter will help her with MyChart documented in this encounter [facility] 06-28-2022 Miscellaneous Notes Call made to patient to inform her of the MDT recommendations. She is not a surgical candidate and she verbalized understanding as to why our team had come to that decision. She is agreeable to continue with the non-surgical route but would like for me to call her daughter to schedule for her. Call made to Madina to discuss the same as above. She verbalized understanding of the situation and thanks me for the call. She is offering to cancel her personal appointment with Dr. Espinosa on 07/09 and give it to Paula. She has lost her insurance and would have to cancel anyway. Aneta Scales RN June 28, 2022 10:56 AM Paula Allen [phone] No appointment scheduled yet for June MDT recs: Recommendations: Wait for official consult from Dr. Dillon. Allow one more month with RD. Discuss at next MDT. Recommendations: Patient is not a surgical candidate due to high likelihood of poor outcomes post-surgery related to her poor memory and inconsistent support. She may proceed with obesity medicine for non-surgical weight loss. Patient met with RD/PAY STATION DEPARTMENT MANAGER 06/01. Daughter present during appointment (virtual). Pt is still struggling with meeting nutrition recommendations: Keeping a food journal 5-7 days per week, meeting protein and fluid goals, eliminating caffeine, eating 3 meals per day, and meeting 150 min of activity/week. Patient stated multiple times throughout the appointment she is very forgetful and struggles with remembering recommendations. Patient and daughter confirmed that the pt is living with her and that he is able to support her throughout this process to help her meet her goals. Patient had appointment with Dr. Dillon 06/04. documented in this encounter [facility] 06-04-2022 Note HNO ID: [id number] Author: Bharath Dillon, PhD Service: ? Author Type: Psychologist Type: Progress Notes Filed: 06/07/2022 4:46 PM Note Text: Patient: Paula Olson : 1950 Referred By: Jacque Balderrama Ph.D. Dates of Service: 04/28/2022, 05/04/2022 AND 06/04/2022 Reason for Referral: assessment of neurocognitive functions due to history of MCI Tests Administered: Antonia Adult Intelligence Scale, fourth edition, (WAIS-IV) Antonia Memory Scale-IV (WMS-IV) Older Adult Battery, Candie Graham Executive Function System (DKEFS) [place] Making AND Verbal Fluency subtests, [place] Naming Test, second edition (BNT-2), [place] Card Sorting Test (WCST), Wide Range Achievement Test, fifth edition (WRAT-5) Word Reading subtest, PHQ-9, AMALIA-7, History Taking AND Clinical Interview with Paula and her daughter, Isa. Test Findings: Note: Where possible, the raw data have been compared with currently available norms which may include demographic corrections for age, gender, and/or education. See attached data summary sheet for individual scores. Current Medications: repaglinide 2 mg tid, memantine 10 mg, metoprolol tartrate 25 mg bid, clopidogrel 75 mg, donepezil 10 mg, allopurinol 100 mg, Lisinopril 20 mg, citalopram 20 mg bid, omeprazole 20 mg bid, furosemide 40 mg bid prn Past Medical History: arthritis, diabetes, BATSHEVA, cardiovascular disease Activities of Daily Living: Pt. ADLs: reports independent Pt. IADLs: reports independent Pt. 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 Illicit Drug Use: Denied. Smoking Status: nonsmoker Caffeine Use: 2-3 cups ? 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 Diagnosis: R41.9 Unspecified Mild Neurocognitive Disorder Behavioral Observations: Alert and oriented in all three spheres, Paula arrived on time and accompanied by her daughter, Isa, to the testing appointment. She was appropriately groomed and casually dressed and ambulated slowly but independently in the office setting with the assistance of a rollator. Speech was of normal rate, rhythm, and prosody with no evidence of aphasia or dysarthria in conversation. Thought processes were logical, coherent, and goal-directed, with no evidence of hallucinations or delusions. Mood was euthymic with congruent affect. Paula denied any current or recent suicidal or homicidal ideation or intent. Hearing and vision were grossly within normal limits. Upper extremity fine motor skills were grossly intact, with no evidence of tremor or ataxia. Follow up visits were conducted via telehealth due to the covid pandemic. Paula was accompanied by Isa to the first follow up visit to review test results. A second follow up visit was scheduled to incorporate information received from her neurologist. This visit was also completed via telehealth and Paula was accompanied by both daughters for this visit. History of Current Complaint: Paula was accompanied to the interview by her daughter, Isa. Isa assisted with information during the interview due to Paula's memory difficulties. Paula reported she was diagnosed with mild cognitive impairment (MCI) within the last year by a physician in [place]. She reported that the diagnosis was based on completion of neuroimaging studies but did not recall what type of study was completed. She shared that she has always been ?sort of an airhead? but noted she began experiencing night hallucinations. At one point Paula thought someone had a laser light shining in her window and as a result she blocked out all of the windows in her home. She reported after initiation of Namenda and Aricept the hallucinations ceased. Paula also reported difficulty with daily recall. Isa reported that family assists with reminders and managing appointments. It is noted that Paula has not yet been compliant with maintaining a food journal or establishing an exercise program, requirements of the bariatric weight loss program. Her daughter shared that she had prompted her mother recently to record her food consumption in her journal but Paula had not wanted to record that she had eaten pizza. Family shared that they are in the process of helping Paula enroll in an exercise program at their local fitness center. Physical health history is significant for obesity, obstructive sleep apnea and diabetes. Paula reported she had a mild heart attack six or seven years ago but was not aware of it at the ti (more content not included)... [facility] 06-04-2022 History of Present illness Narrative Reviewed additional information received from neurology with pt and daughters. Detailed report to follow. documented in this encounter [facility] 06-01-2022 Note HNO ID: [id number] Author: Tiffany Escobedo RD Service: ? Author Type: Registered Dietitian Type: Progress Notes Filed: 06/01/2022 10:53 AM Note Text: Paula Olson This patient encounter was completed virtually using a secure, HIPPA compliant video chat software program with the patient's consent. Pre-Op weight goal: 293 lbs Education Class: Patient will receive instruction regarding healthy food choices and eating behaviors identified as optimal when preparing for surgery, losing weight after surgery, and maintaining weight loss long-term. Patient will also receive instruction regarding the Bariatric Full Liquid diet following surgery and optimal post-operative high-protein supplement choices. Education class to be completed prior to surgery. Behaviors Accomplished: Visit # 02/22 Date: 06/01/22 Weight:301 lbs Enrollment weight: 308 lbs -- 01/08 Weight goal met: No, down 5# since last RD visit 05/04, 8#above GW, 7# down since enrollment Behaviors that helped/hindered weight loss: helped - taking daily MV, working on using only decaf coffee HINDERED: eating 1-2 meals daily, not keeping a food journal, no formal exercise, and endorsing in caffeine daily 24 hr recall: 05/31 -- could not recall full day B: could not remember L: could not remember D: vegetable F: 72 oz of water + 1/2 caff coffee (10 oz) -- 3-4 c (~ 20 oz caff) = ~ 52 oz fluid P: could not recall 06/01 - AM B: 2 cups 1/2 caff coffee + 1 KIND granola bar Exercise: walking around her home daily -- no formal exercise at this time -- provided pt with chair exercises Caffeine: 6-8 oz regular caffeine per day -- per last RD note -- increased to 15-20 oz daily per pt report - advised to eliminate completely Carbonation: none Alcohol: none Dining out: 1x/month Sipping slowly/frequently: Yes Taking small bites/chewing 20-30x per bite: Yes food and fluid by 30 minutes: Yes Of note, aim for 55-60g protein goal d/y CKD stage 3/4. Patient presents for month of supervised diet and exercise, verbalized that she is keeping half of a food journal -- few days per week -- due to her memory. Daughter is present with her during appointment. Per 24 hr recall, she could not remember what she ate yesterday besides vegetable soup, meeting lower range of fluid goals. Does report getting in 1 protein shake some days but recently did not report drinking any. Also states that she is still only eating 1-2 meals per day and feels very lethargic. Patient did state that she lives with her and feels that he will be able to remind her of her overall daily nutrition goals - will send patient letter via mail to post on her fridge as a daily reminder. Daughter reports making frozen breakfasts for her mother to reheat, along with purchasing some microwave meals for her -- patient has not utilized at this time. Could not review food journal today due to patient not writing anything down. Still endorsing in daily caffeine, reminded patient she must be completley caffeine free to obtain nutrition clearance. Patient also reports only walking around her house throughout the day, she is not formally exercising. Did confirm with pt daughter that they still have the chair exercise sheet to use to help meet her goals of 150 min/week.Reports taking daily MV. Reviewed overall nutrition goals for full clearance with patient and daughter during appointment today. May MDT recs: Recommendations: Wait for official consult from Dr. Dillon. Allow one more month with RD. Discuss at next MDT. The patient meets NIH guidelines for weight loss surgery and has been thoroughly evaluated and educated on good dietary practices. Patient is capable of following these guidelines pre-and post-surgically. From nutrition standpoint, the has partially met nutrition clearance and will need to demonstrate 3 meals per day, increase formal exercise to 150 minutes per week, eliminate caffeine, food journal/food logging 5-7x/week and meeting protein/fluid goals 5-7x/week (5-60g pro, 64 oz fl) to receive nutrition clearance. Plan: will represent on MDT for June Goals Eat 3 meals every day--protein shake as meal replacement, eggs, cottage cheese, senegalese yogurt, cheese sticks, tuna, deli meat eliminate all caffeine--can do decaf coffee formal exercise 5-7x/weel, goal of 30 minutes (chair exercises--in 10 minute intervals as tolerated)--start with 3 days per week and increase, overall goal of 150 minutes per week maintain a food journal 5-7x/week, keep at kitchen table, document as you are eating with portions OR take photos of meals, share with Madina for calculations track protein and fluid--goal of 55-60g protein and 64oz of fluids per day I spent 20 minutes in the visit, with more than 50% of the total qsgc-sa-lakn time of the visit in counseling / coordination of care. Tiffany Escobedo RD This note was genera (more content not included)... [facility] 06-01-2022 Note HNO ID: [id number] Author: Martine Amin APRN.GIFT SHOP MANAGER Service: ? Author Type: Nurse Practitioner Type: Progress Notes Filed: 06/01/2022 9:42 AM Note Text: BARIATRIC SURGERY CLINIC FOLLOW UP NOTE DISTANCE HEALTH VISIT This Team Access Model visit is a virtual encounter. It required patient-provider interaction for the medical decision making as documented below. Consent was obtained to complete today's distance health visit. HPI: Paula Olson a 71 year old female for presents for medically supervised weight loss treatment of her obesity related co morbidities. This individual presents for month 6 of 6 required visits completed as a virtual telephone encounter Paula Olson weight calculation has decreased by 5# since her last visit. She denies recent illnesses, recent hospitalizations, recent ED visits. Denies acid reflux symptoms, abdominal pain, changes to stool pattern. She continues to use CPAP nightly. She is scheduled for echocardiogram on 06/03-these results are pending her cardiac clearance. She completed appropriate neuropsych testing per psychiatry. She is following up later this week with Dr. Dillon to review results. HISTORY REVIEWED (electronic chart updated): - medical history - medications - allergies PAST MEDICAL HISTORY Diagnosis Date Acute gastritis without mention of hemorrhage Allergic rhinitis, cause unspecified Allergic rhinitis ASCVD (arteriosclerotic cardiovascular disease) 02/17/2003 Benign neoplasm of colon 09/03/2005 CKD (chronic kidney disease) stage 3, GFR 30-59 ml/min ([facility]) 06/01/2016 Dr. Chairez, nephrology Depressive disorder, not elsewhere classified 12/13/2008 Diabetes ([facility]) 08/19/1993 diagnosed. DM type 2 causing CKD stage 4 ([facility]) 09/09/2014 GERD (gastroesophageal reflux disease) 12/01/2010 Gout involving toe 11/23/2016 Hyperlipidemia 06/30/2015 Hypertension NM (myocardial infarction) ([facility]) Morbid obesity ([facility]) BATSHEVA on CPAP Postmenopausal atrophic vaginitis 05/15/2012 Renal failure Snoring Trigeminal nerve disorder, unspecified Umbilical hernia without mention of obstruction or gangrene Vitamin D deficiency 04/09/2010 Social: Social History Tobacco Use Smoking status: Never Smokeless tobacco: Never Substance Use Topics Alcohol use: No Drug use: No Medications: Current Outpatient Medications Medication Sig metoprolol tartrate, short acting, (LOPRESSOR) 25 mg tablet Take 25 mg by mouth twice daily. repaglinide (PRANDIN) 2 mg tablet Take by mouth three times daily before meals. memantine (NAMENDA) 10 mg tablet Take 10 mg by mouth once daily. clopidogrel (PLAVIX) 75 mg tablet clopidogrel 75 mg tablet donepezil (ARICEPT) 10 mg tablet 5 mg once daily. Takes in am allopurinol (ZYLOPRIM) 100 mg tablet Take 1 tablet by mouth once daily. (Patient taking differently: Take 100 mg by mouth twice daily.) lisinopril (ZESTRIL, PRINIVIL) 20 mg tablet Take 1 tablet by mouth once daily. citalopram (CELEXA) 20 mg tablet Take 1 tablet by mouth twice daily. Blood-Glucose Meter [facility] Dispense 1 kit blood sugar diagnostic (BLOOD GLUCOSE TEST) test strip Test blood sugar(s) 2 xdaily. Dx: E11.22. Insulin: No Lancets lancets Test blood sugar(s) 2 x daily. Dx: E11.22. Insulin: No omeprazole (PRILOSEC) 20 mg capsule Take 1 capsule by mouth twice daily. furosemide (LASIX) 40 mg tablet Take 1 tablet by mouth twice daily as needed. (Patient taking differently: Take 40 mg by mouth once daily.) No current facility-administered medications for this visit. REVIEW OF SYSTEMS General: No fatigue or fevers HEENT: Negative for frequent or significant headaches, No changes in hearing or vision, no nose bleeds or other nasal problems PAP Therapy: Using it nightly. GI:No nausea, vomiting, or diarrhea and No heartburn or reflux symptoms Muskuloskeletal: Negative for joint pain or swelling, back pain or muscle pain Skin: Negative for lesions, rash, and itching Psych: Negative for sleep disturbance, mood disorder and recent psychosocial stressors PHYSICAL EXAMINATION Wt 136.8 kg (301 lb 9.6 oz) BMI 50.19 kg/m2 Ht 165.1 cm (5' 5 ) BMI 50.19 kg/m2 GENERAL APPEARANCE: Pleasant, interacts appropriately and in no apparent distress. Appropriately groomed, happy, smiling, and interactive SKIN: Skin of normal texture, temperature without rashes/lesions/ulcerations. LUNGS: unlabored on room air negative findings: normal respiratory rate no cough NEURO/PSYCH: Oriented to person, place, time; appropriate insight and judgement. Appropriate affect. Diagnostic Tests Reviewed for Today's Visit Most recent lab and imaging results The plan of treatment for Paula Olson is Further Work-up: Required monthly visits: 6 of 6 months. Patient is interested in: Sleeve Gastrectomy EGD: defer to UGI Upper GI: WNL RUQ US: NAFLD, dilation of the CBD in setting of cholecystectomy, bilateral renal cyts < 3 cm (more content not included)... [facility] 06-01-2022 Miscellaneous Notes Called to schedule 1 Mo f/u with RD & PAY STATION DEPARTMENT MANAGER , no answer, unable to lvm documented in this encounter [facility] 06-01-2022 Miscellaneous Notes Cardiac clearance letter faxed to Dr. Acevedo Pulmonary clearance letter faxed to Dr. Kristi Scales RN June 01, 2022 10:43 AM documented in this encounter [facility] 06-01-2022 History of Present illness Narrative Paula Olson This patient encounter was completed virtually using a secure, HIPPA compliant video chat software program with the patient's consent. Pre-Op weight goal: 293 lbs Education Class: Patient will receive instruction regarding healthy food choices and eating behaviors identified as optimal when preparing for surgery, losing weight after surgery, and maintaining weight loss long-term. Patient will also receive instruction regarding the Bariatric Full Liquid diet following surgery and optimal post-operative high-protein supplement choices. Education class to be completed prior to surgery. Behaviors Accomplished: Visit # 6 Date: 06/01/22 Weight:301 lbs Enrollment weight: 308 lbs -- 01/08 Weight goal met: No, down 5# since last RD visit 05/04, 8#above GW, 7# down since enrollment Behaviors that helped/hindered weight loss: helped - taking daily MV, working on using only decaf coffee HINDERED: eating 1-2 meals daily, not keeping a food journal, no formal exercise, and endorsing in caffeine daily 24 hr recall: 05/31 -- could not recall full day B: could not remember L: could not remember D: vegetable F: 72 oz of water + 1/2 caff coffee (10 oz) -- 3-4 c (~ 20 oz caff) = ~ 52 oz fluid P: could not recall 06/01 - AM B: 2 cups 1/2 caff coffee + 1 KIND granola bar Exercise: walking around her home daily -- no formal exercise at this time -- provided pt with chair exercises Caffeine: 6-8 oz regular caffeine per day -- per last RD note -- increased to 15-20 oz daily per pt report - advised to eliminate completely Carbonation: none Alcohol: none Dining out: 1x/month Sipping slowly/frequently: Yes Taking small bites/chewing 20-30x per bite: Yes food and fluid by 30 minutes: Yes Of note, aim for 55-60g protein goal d/y CKD stage 3/4. Patient presents for month of supervised diet and exercise, verbalized that she is keeping half of a food journal -- few days per week -- due to her memory. Daughter is present with her during appointment. Per 24 hr recall, she could not remember what she ate yesterday besides vegetable soup, meeting lower range of fluid goals. Does report getting in 1 protein shake some days but recently did not report drinking any. Also states that she is still only eating 1-2 meals per day and feels very lethargic. Patient did state that she lives with her and feels that he will be able to remind her of her overall daily nutrition goals - will send patient letter via mail to post on her fridge as a daily reminder. Daughter reports making frozen breakfasts for her mother to reheat, along with purchasing some microwave meals for her -- patient has not utilized at this time. Could not review food journal today due to patient not writing anything down. Still endorsing in daily caffeine, reminded patient she must be completley caffeine free to obtain nutrition clearance. Patient also reports only walking around her house throughout the day, she is not formally exercising. Did confirm with pt daughter that they still have the chair exercise sheet to use to help meet her goals of 150 min/week.Reports taking daily MV. Reviewed overall nutrition goals for full clearance with patient and daughter during appointment today. May MDT recs: Recommendations: Wait for official consult from Dr. Dillon. Allow one more month with RD. Discuss at next MDT. The patient meets NIH guidelines for weight loss surgery and has been thoroughly evaluated and educated on good dietary practices. Patient is capable of following these guidelines pre-and post-surgically. From nutrition standpoint, the has partially met nutrition clearance and will need to demonstrate 3 meals per day, increase formal exercise to 150 minutes per week, eliminate caffeine, food journal/food logging 5-7x/week and meeting protein/fluid goals 5-7x/week (5-60g pro, 64 oz fl) to receive nutrition clearance. Plan: will represent on MDT for June Goals Eat 3 meals every day--protein shake as meal replacement, eggs, cottage cheese, senegalese yogurt, cheese sticks, tuna, deli meat eliminate all caffeine--can do decaf coffee formal exercise 5-7x/weel, goal of 30 minutes (chair exercises--in 10 minute intervals as tolerated)--start with 3 days per week and increase, overall goal of 150 minutes per week maintain a food journal 5-7x/week, keep at kitchen table, document as you are eating with portions OR take photos of meals, share with Madina for calculations track protein and fluid--goal of 55-60g protein and 64oz of fluids per day I spent 20 minutes in the visit, with more than 50% of the total gfzt-ly-oyhx time of the visit in counseling / coordination of care. Tiffany Escobedo RD This note was generated using voice recognition technology and may contain grammatical errors. documented in this encounter [facility] 05-27-2022 Miscellaneous Notes No phone call made at this time, awaiting further testing from Dr. Dillon and visit with RD. Will discuss at next MDT. Aneta Scales RN May 27, 2022 2:51 PM Paula Balderrama 1950 Concern: likely early onset Alzheimer's dementia per neuro-psych testing Recommendations: Wait for official consult from Dr. Dillon. Allow one more month with RD. Discuss at next MDT. documented in this encounter [facility] 05-26-2022 Miscellaneous Notes Reviewed, low risk Martine Amin APRN.GIFT SHOP MANAGER We received neurology medical clearance from Dr. Osman and it is scanned in for review. Petra Ponce Ma documented in this encounter [facility] 05-04-2022 Note HNO ID: [id number] Author: Bharath Dillon, PhD Service: ? Author Type: Psychologist Type: Progress Notes Filed: 05/04/2022 12:57 PM Note Text: Reviewed results of neuropsychological testing with patient, which demonstrated impairments related to memory and executive functions. Awaiting records from neurology before finalizing report. [facility] 05-04-2022 Note HNO ID: [id number] Author: Olamide Rowell RD Service: ? Author Type: Registered Dietitian Type: Progress Notes Filed: 05/04/2022 4:09 PM Note Text: Paula Olson--Visit conducted via [employer] (audio and visual) d/t COVID 19 Month 5/6 Pre-Op weight goal: 293# Education Class: Patient will receive instruction regarding healthy food choices and eating behaviors identified as optimal when preparing for surgery, losing weight after surgery, and maintaining weight loss long-term. Patient will also receive instruction regarding the Bariatric Full Liquid diet following surgery and optimal post-operative high-protein supplement choices. Education class to be completed prior to surgery. Behaviors Accomplished: Visit # 5 Date: 05/03/2022 Weight: 306# per pt report Weight goal met: No: pt presents with a wt maintenance since last encounter. Remains 2# below initial wt and 13# above GW. Behaviors that helped/hindered weight loss: working with decaf, not eating as much. Daily multivitamin -consuming 2 meals per day -12-16oz of 1/2 cafe coffee (6-8oz of regular coffee per day) -1x/month of dining out -no formal exercise, generalized activity ie. shopping -waiting 15 minutes after a meal to start sipping, working towards chewing, sipping slowly 24 hr recall: B: decaf coffee L: cheeseburger casserole (1 cup)--3oz meat per serving + cheese (28g) D: cheeseburger casserole (1 cup)--3oz meat per serving + cheese (28g) S: 1 Tb peanut butter F: drinks 2+, 32oz tumblers per day -- 64+ ounces P: 58-60g Written information provided and reviewed: Healthy plate/menus Behavior Checklist Journal Chair exercises--via [employer] Pt verbally reports not maintaining a food journal. Pt presents for month 01/22 to assess for nutrition clearance. Of note, pt is on MDT pathway with the following recommendations--of note does have hx of MCI diagnosis: Patient needs updated neuropsychology testing (04/28/22) and continued family support while going through surgical program. Patient would benefit from 1:[address] visits monthly She did complete neuropsychology testing and did have appt to review results today. Pt's daughter, Madina, present during appt today. Since last encounter, pt has reduced her caffeine intake another 25%. She does report running low on regular coffee and is open to switching over to all decaf this month. She has not engaged in formal activity, nor has attempted chair exercises. We did review the importance of formal, planned activity with reference to wt loss/food tolerance post-op--did encourage making part of her routine and having post-it notes available for reminders of goals reviewed during appts. Suggested 10 minute intervals of chair exercises/formal activity. She does report skipping 1 meal per day, did recommend use of protein shake or having high protein convenient items available ie. Eggs, cheese, cottage cheese, senegalese yogurt. She has not attempted a food journal. Madina and pt report trying to do photo options with meals, where pt will take a photo of the meal and madina will add with documentation and calculations. Did suggest having post-it note reminder to take photos for consistency. Pt and Madina report making meals, also suggested to have pre-made, packaged meals prepped that include total protein for each serving to aid with calculating. They are also interested in using meal delivery service ([employer]). Will review protein/fluid totals at next encounter. Of note, aim for 55-60g protein goal d/y CKD stage 3/4. Goals: Goals Eat 3 meals every day--protein shake as meal replacement, eggs, cottage cheese, senegalese yogurt, cheese sticks, tuna, deli meat eliminate all caffeine--can do decaf coffee formal exercise 5-7x/weel, goal of 30 minutes (chair exercises--in 10 minute intervals as tolerated)--start with 3 days per week and increase, overall goal of 150 minutes per week maintain a food journal 5-7x/week, keep at kitchen table, document as you are eating with portions OR take photos of meals, share with Madina for calculations track protein and fluid--goal of 55-60g protein and 64oz of fluids per day The patient meets NIH guidelines for weight loss surgery and has been thoroughly evaluated and educated on good dietary practices. Patient is capable of following these guidelines pre-and post-surgically. From nutrition standpoint, the has partially met nutrition clearance and will need to demonstrate 3 meals per day, increase formal exercise to 150 minutes per week, eliminate caffeine, food journal/food logging 5-7x/week and meeting protein/fluid goals 5-7x/week to receive nutrition clearance. Plan: follow up with RD x 1 month as month 6/6 to assess for nutrition clearance. Total time in direct patient contact = 32 min. Greater than 50% of the time was spent in counseling and/or coordination of care. Olamide Rowell, ZENA This no (more content not included)... [facility] 05-04-2022 History of Present illness Narrative Reviewed results of neuropsychological testing with patient, which demonstrated impairments related to memory and executive functions. Awaiting records from neurology before finalizing report. documented in this encounter [facility] 05-03-2022 Note HNO ID: [id number] Author: Martine Amin APRN.[facility] Service: ? Author Type: Nurse Practitioner Type: Progress Notes Filed: 05/03/2022 1:52 PM Note Text: BARIATRIC SURGERY CLINIC FOLLOW UP NOTE DISTANCE HEALTH VISIT This Team Access Model visit is a virtual encounter. It required patient-provider interaction for the medical decision making as documented below. Consent was obtained to complete today's distance health visit. HPI: Paula Olson a 71 year old female for presents for medically supervised weight loss treatment of her obesity related co morbidities. This individual presents for month 5 of 6 required visits completed as a virtual telephone encounter Paula Olson weight calculation is unchanged since her last visit. She has been making efforts towards keeping a food journal, with the help of her daughter. She is planning on sending her pictures of her food and her daughter will then calculate protein and fluid intake for her. She denies recent illnesses, recent hospitalizations, recent ED visits. Denies acid reflux symptoms, abdominal pain, changes to stool pattern. She continues to use BiPAP nightly. She did establish with sleep medicine who would like to review 30-day download before making further recommendations. She completed neuropsych testing-she has an appointment with psychology tomorrow to review results. She is scheduled with washateria attendant in a couple of weeks for preoperative clearance appointment. HISTORY REVIEWED (electronic chart updated): - medical history - medications - allergies PAST MEDICAL HISTORY Diagnosis Date Acute gastritis without mention of hemorrhage Allergic rhinitis, cause unspecified Allergic rhinitis ASCVD (arteriosclerotic cardiovascular disease) 02/17/2003 Benign neoplasm of colon 09/03/2005 CKD (chronic kidney disease) stage 3, GFR 30-59 ml/min ([facility]) 06/01/2016 Dr. Chairez, nephrology Depressive disorder, not elsewhere classified 12/13/2008 Diabetes ([facility]) 08/19/1993 diagnosed. DM type 2 causing CKD stage 4 ([facility]) 09/09/2014 GERD (gastroesophageal reflux disease) 12/01/2010 Gout involving toe 11/23/2016 Hyperlipidemia 06/30/2015 Hypertension NM (myocardial infarction) ([facility]) Morbid obesity ([facility]) BATSHEVA on CPAP Postmenopausal atrophic vaginitis 05/15/2012 Renal failure Snoring Trigeminal nerve disorder, unspecified Umbilical hernia without mention of obstruction or gangrene Vitamin D deficiency 04/09/2010 Social: Social History Tobacco Use Smoking status: Never Smokeless tobacco: Never Substance Use Topics Alcohol use: No Drug use: No Medications: Current Outpatient Medications Medication Sig metoprolol tartrate, short acting, (LOPRESSOR) 25 mg tablet Take 25 mg by mouth twice daily. repaglinide (PRANDIN) 2 mg tablet Take by mouth three times daily before meals. memantine (NAMENDA) 10 mg tablet Take 10 mg by mouth once daily. clopidogrel (PLAVIX) 75 mg tablet clopidogrel 75 mg tablet donepezil (ARICEPT) 10 mg tablet 5 mg once daily. Takes in am allopurinol (ZYLOPRIM) 100 mg tablet Take 1 tablet by mouth once daily. (Patient taking differently: Take 100 mg by mouth twice daily.) lisinopril (ZESTRIL, PRINIVIL) 20 mg tablet Take 1 tablet by mouth once daily. citalopram (CELEXA) 20 mg tablet Take 1 tablet by mouth twice daily. Blood-Glucose Meter [facility] Dispense 1 kit blood sugar diagnostic (BLOOD GLUCOSE TEST) test strip Test blood sugar(s) 2 xdaily. Dx: E11.22. Insulin: No Lancets lancets Test blood sugar(s) 2 x daily. Dx: E11.22. Insulin: No omeprazole (PRILOSEC) 20 mg capsule Take 1 capsule by mouth twice daily. furosemide (LASIX) 40 mg tablet Take 1 tablet by mouth twice daily as needed. (Patient taking differently: Take 40 mg by mouth once daily.) No current facility-administered medications for this visit. REVIEW OF SYSTEMS General: No fatigue or fevers HEENT: Negative for frequent or significant headaches, No changes in hearing or vision, no nose bleeds or other nasal problems PAP Therapy: Using it nightly. GI:No nausea, vomiting, or diarrhea and No heartburn or reflux symptoms Muskuloskeletal: joint pain or swelling Skin: Negative for lesions, rash, and itching Psych: Negative for sleep disturbance, mood disorder and recent psychosocial stressors PHYSICAL EXAMINATION Wt 138.8 kg (306 lb) BMI 50.92 kg/m2 Ht 165.1 cm (5' 5 ) BMI 50.92 kg/m2 GENERAL APPEARANCE: Pleasant, interacts appropriately and in no apparent distress. Appropriately groomed, happy, smiling, and interactive SKIN: Skin of normal texture, temperature without rashes/lesions/ulcerations. LUNGS: unlabored on room air negative findings: normal respiratory rate no cough NEURO/PSYCH: Oriented to person, place, time; appropriate insight and judgement. Appropriate affect. Diagnostic Tests Reviewed for Today's Visit Most recent lab and imaging results The plan of treatment for Yuval (more content not included)... [facility] 05-03-2022 History of Present illness Narrative BARIATRIC SURGERY CLINIC FOLLOW UP NOTE DISTANCE HEALTH VISIT This Team Access Model visit is a virtual encounter. It required patient-provider interaction for the medical decision making as documented below. Consent was obtained to complete today's distance health visit. HPI: Paula Olson a 71 year old female for presents for medically supervised weight loss treatment of her obesity related co morbidities. This individual presents for month 5 of 6 required visits completed as a virtual telephone encounter Paula Olson weight calculation is unchanged since her last visit. She has been making efforts towards keeping a food journal, with the help of her daughter. She is planning on sending her pictures of her food and her daughter will then calculate protein and fluid intake for her. She denies recent illnesses, recent hospitalizations, recent ED visits. Denies acid reflux symptoms, abdominal pain, changes to stool pattern. She continues to use BiPAP nightly. She did establish with sleep medicine who would like to review 30-day download before making further recommendations. She completed neuropsych testing-she has an appointment with psychology tomorrow to review results. She is scheduled with washateria attendant in a couple of weeks for preoperative clearance appointment. HISTORY REVIEWED (electronic chart updated): - medical history - medications - allergies PAST MEDICAL HISTORY Diagnosis Date Acute gastritis without mention of hemorrhage Allergic rhinitis, cause unspecified Allergic rhinitis ASCVD (arteriosclerotic cardiovascular disease) 02/17/2003 Benign neoplasm of colon 09/03/2005 CKD (chronic kidney disease) stage 3, GFR 30-59 ml/min ([facility]) 06/01/2016 Dr. Chairez, nephrology Depressive disorder, not elsewhere classified 12/13/2008 Diabetes ([facility]) 08/19/1993 diagnosed. DM type 2 causing CKD stage 4 ([facility]) 09/09/2014 GERD (gastroesophageal reflux disease) 12/01/2010 Gout involving toe 11/23/2016 Hyperlipidemia 06/30/2015 Hypertension NM (myocardial infarction) ([facility]) Morbid obesity ([facility]) BATSHEVA on CPAP Postmenopausal atrophic vaginitis 05/15/2012 Renal failure Snoring Trigeminal nerve disorder, unspecified Umbilical hernia without mention of obstruction or gangrene Vitamin D deficiency 04/09/2010 Social: Social History Tobacco Use Smoking status: Never Smokeless tobacco: Never Substance Use Topics Alcohol use: No Drug use: No Medications: Current Outpatient Medications Medication Sig metoprolol tartrate, short acting, (LOPRESSOR) 25 mg tablet Take 25 mg by mouth twice daily. repaglinide (PRANDIN) 2 mg tablet Take by mouth three times daily before meals. memantine (NAMENDA) 10 mg tablet Take 10 mg by mouth once daily. clopidogrel (PLAVIX) 75 mg tablet clopidogrel 75 mg tablet donepezil (ARICEPT) 10 mg tablet 5 mg once daily. Takes in am allopurinol (ZYLOPRIM) 100 mg tablet Take 1 tablet by mouth once daily. (Patient taking differently: Take 100 mg by mouth twice daily.) lisinopril (ZESTRIL, PRINIVIL) 20 mg tablet Take 1 tablet by mouth once daily. citalopram (CELEXA) 20 mg tablet Take 1 tablet by mouth twice daily. Blood-Glucose Meter [facility] Dispense 1 kit blood sugar diagnostic (BLOOD GLUCOSE TEST) test strip Test blood sugar(s) 2 xdaily. Dx: E11.22. Insulin: No Lancets lancets Test blood sugar(s) 2 x daily. Dx: E11.22. Insulin: No omeprazole (PRILOSEC) 20 mg capsule Take 1 capsule by mouth twice daily. furosemide (LASIX) 40 mg tablet Take 1 tablet by mouth twice daily as needed. (Patient taking differently: Take 40 mg by mouth once daily.) No current facility-administered medications for this visit. REVIEW OF SYSTEMS General: No fatigue or fevers HEENT: Negative for frequent or significant headaches, No changes in hearing or vision, no nose bleeds or other nasal problems PAP Therapy: Using it nightly. GI:No nausea, vomiting, or diarrhea and No heartburn or reflux symptoms Muskuloskeletal: joint pain or swelling Skin: Negative for lesions, rash, and itching Psych: Negative for sleep disturbance, mood disorder and recent psychosocial stressors PHYSICAL EXAMINATION Wt 138.8 kg (306 lb) BMI 50.92 kg/m2 Ht 165.1 cm (5' 5 ) BMI 50.92 kg/m2 GENERAL APPEARANCE: Pleasant, interacts appropriately and in no apparent distress. Appropriately groomed, happy, smiling, and interactive SKIN: Skin of normal texture, temperature without rashes/lesions/ulcerations. LUNGS: unlabored on room air negative findings: normal respiratory rate no cough NEURO/PSYCH: Oriented to person, place, time; appropriate insight and judgement. Appropriate affect. Diagnostic Tests Reviewed for Today's Visit Most recent lab and imaging results The plan of treatment for Paula Olson is Further Work-up: Required monthly visits: 5 of 6 months. Patient is interested in: Sleeve Gastrectomy EGD: defer to UGI Upper GI: WNL RUQ US: NAFLD, dilation of the CBD in setting of cholecystectomy, bilateral renal cyts < 3 cm Sleep Study: Sleep apnea, uses CPAP CXR:per pulmonary clearance EKG:per cardiac clearance H Pylori NA planned SG Labs: complete, elevated PTH (likely secondary to CKD), baseline elevated creatinine and decreased GFR A1C 7.1, scanned in Nicotine use <12 months: NA Antiplatelet/anticoagulants: Plavix (Clopidogrel) Immunosuppressive therapy: No Estrogen therapy: No Evaluations Psychology: ongoing - Recommending neuropsych testing for mild cognitive impairement and more frequent 1:1 RD visits Nutrition: ongoing Education class: ongoing Clearances: Cardiac (with recs on Plavix), Pulmonary (pending 30 day download, follow up 3 mo), PCP and nephrology (low), neurology Risk Calculator: VTE Risk: OR time < 3 hours = 0.52% OR time > 3 hours = 0.81% COVID-19 Risk 3 ISS score: 110 - severe disease, LSG recommended Adverse Event score: 2.80% Post-op Medications: Extended Lovenox: Yes for either procedure Actigall: not needed, hx of cholecystectomy H2 geovanna/PPI: Will require ASSESSMENT/PLAN: 1. Class 3 severe obesity due to excess calories with serious comorbidity and body mass index (BMI) of 50.0 to 59.9 in adult (HCC) - ICD9: 278.01, V85.43, ICD10: E66.01, Z68.43 (primary diagnosis) Stable - Behavioral intervention and - Medical nutrition therapy with dietitian - Nutrition Counseling Practice these: - Eat 3 meals daily--can use approved/recommended protein shake as 1 meal replacement (should be <200 calories, 20-30g protein, <5g added sugar) - Keep a food journal 5-7x/week (consider [employer] or [employer]) and demonstrate meeting protein goal (60-90g protein for females, 70-105g protein for males)- Lean meats, fish, low fat dairy - cottage cheese, Maori yogurt, light yogurt, cheese, ricotta cheese, nuts, peanut butter, beans/legumes. Eat protein first at all meals. and 64oz of caffeine-free, carbonation-free fluids at least 5 days per week - engage in formal, planned exercise 5x/week for 30 minutes of cardiovascular activity OR 150+ minutes of cardiovascular activity per week - eliminate all caffeine, carbonation, alcohol and sugar-containing beverages from diet --consider sugar-free drink mixes, water, decaf coffee and tea - Separate eating and drinking by 30 minutes - Chew your food 20-30x per bite - Sip beverages slowly--no guzzling or gulping 2. BATSHEVA on CPAP - ICD9: 327.23, V46.8, ICD10: G47.33, Z99.89 - Using BiPAP nightly - Sleep medicine clearance pending results of 30 day download 3. ASCVD (arteriosclerotic cardiovascular disease) - ICD9: 429.2, 440.9, ICD10: I25.10 - Requesting cardiac clearance with recs on Plavix 4. Mild cognitive impairment - ICD9: 331.83, ICD10: G31.84 - Results of neuropsych testing pending Still needs clearance from nutrition, psychology, cardiology, and pulmonology. All testing is complete. Follow-up with PAY STATION DEPARTMENT MANAGER next month to review clearance status. Martine Amin APRN.[employer] Total time in direct patient contact = 12 min. Greater than 50% of the time was spent in counseling and/or coordination of care. This note was generated using voice recognition technology and may contain grammatical errors. Medical Decision Making: Problems: Moderate: 2+ stable chronic illnesses Data: Unique source(s) for external note(s) reviewed: 1 Assessment requiring an independent historian(s) Medical Decision Making Level: 3 - Low documented in this encounter [facility] 04-29-2022 Miscellaneous Notes Order for CPAP supplies faxed to [facility]. Geovanna Encinas ADM documented in this encounter [facility] 04-29-2022 Note HNO ID: [id number] Author: Jacque Balderrama, PhD Service: ? Author Type: Psychologist Type: Progress Notes Filed: 04/29/2022 2:02 PM Note Text: Jacque Balderrama, Ph.D., Clinical Psychologist [facility] [address] [place] [address], [address] [place] [address] [facility] Progress Note April 29, 2022 BILLING CODE: Tacos CPT Code: 65066 Psychotherapy 38-52 minutes Chief Complaint: Presurgical preparation focused on behavior change; stress management/coping Time initiated session: 12:58pm to 1:37pm Date of First Session: 02/05/22 (initial evaluation) Session #: 2 This appointment was conducted remotely via video virtual visit due to outbreak of COVID-19. Patient agreed to distance mental health visit. Prior to initiating the appointment, patient identity was established using name and date of . Patient was encouraged to move to a quiet place free of distractions. Provided patient with number to call in case of disconnection ([phone]) and obtained alternate phone number from patient (n/a, patient requested call back on [phone]). She reported she was at the following location: home ([address] [place] [address]) Patient identified the following plan to follow in case of emergency: Go to emergency room or call 911 Closest emergency room: [facility] Emergency Contact Information Primary Emergency Contact: Madina Carlson Address: [address] [place], [place] [id number] [place] [address] Relation: Daughter Secondary Emergency Contact: WhitneyRobert Address: [address] [place] [id number] [place] [address] Mobile Relation: Spouse Collateral Parties Present: child The patient has acknowledged understanding the purpose and/or need for the third libertarian to be present and the circumstances and extent to which confidential information may be disclosed to the third libertarian. The third libertarian verbalizes understanding that they are not a patient, there is no expectation of confidentiality between the provider and the third libertarian, and the third libertarian does not have rights to access any part of the patient's file without written authorization from the patient. . Subjective: Patient presented with her daughter, Madina for the appointment. They both reported that patient has been working to make healthy choices in line with eating and activity recommendations and has been recently working to track her food more consistently and continue eliminating caffeine. She did have her neuropsychological testing completed yesterday with Dr. Dillon, and she has her follow-up appointment next week to review results and recommendations. Patient and her daughter both reported feeling excited for this appointment and are eager for additional recommendations and support for patient in making behavior changes. Patient does report that she has been relying on her daughters for support with remembering behavior changes and practicing new patterns. She does report that she has been forming new habits and remembering things more consistently with support. Patient does report being interested in trying a meal kit delivery for additional support with planning meals. Encouraged patient and her daughter to look into nutrition facts prior to ordering a meal and make changes as necessary. Validated patient's emotions and experiences and engaged in reflective listening as she explored her concerns. Reinforced focus on making healthy choices, and engaged in motivational interviewing to identify factors supporting changes, as well as barriers to change. Explored ongoing use of effective, healthy stress management skills, and encouraged patient to continue using healthy skills to manage stress. Explored strategies for behavior change, particularly with memory concerns. Encouraged ongoing social support. Overall, patient has been working hard to make changes with social support and is overall doing well. She does have her follow-up appointment to review results of neuropsychological testing scheduled this week. No follow-up appointment was set at this time. However, a follow-up appointment may be scheduled depending on any unexpected results of neuropsychological testing. Currently, psychological clearance is pending review of neuropsychological testing with no new or surprising findings. Patient mood is: calm. Affect is: euthymic. Patient denies any suicidal or homicidal ideation, plan or intent at this time. Objective: Assessment: (F54) Psychological factors affecting medical condition (primary encounter diagnosis) (E66.01, Z68.43) Class 3 severe obesity with serious comorbidity and body mass index (BMI) of 50.0 to 59.9 in adult, unspecified obesity type (HCC) (G31.84) Mild cognitive impairment Tony (more content not included)... [facility] 04-29-2022 History of Present illness Narrative Images from the original note were not included. Jacque Balderrama, Ph.D., Clinical Psychologist [facility] [address] [place] [address], [address] [place] [address] [facility] Progress Note April 29, 2022 BILLING CODE: Balderrama CPT Code: 30243 Psychotherapy 38-52 minutes Chief Complaint: Presurgical preparation focused on behavior change; stress management/coping Time initiated session: 12:58pm to 1:37pm Date of First Session: 02/05/22 (initial evaluation) Session #: 2 This appointment was conducted remotely via video virtual visit due to outbreak of COVID-19. Patient agreed to distance mental health visit. Prior to initiating the appointment, patient identity was established using name and date of . Patient was encouraged to move to a quiet place free of distractions. Provided patient with number to call in case of disconnection ([phone]) and obtained alternate phone number from patient (n/a, patient requested call back on [phone]). She reported she was at the following location: home ([address] [place] [id number]) Patient identified the following plan to follow in case of emergency: Go to emergency room or call 911 Closest emergency room: [facility] Contact Information Primary Emergency Contact: Madina Carlson Address: [address] [place] [id number] [place] [address] Relation: Daughter Secondary Emergency Contact: Robert Olson Address: [address] [place] [id number] [place] [address] Mobile Relation: Spouse Collateral Parties Present: child The patient has acknowledged understanding the purpose and/or need for the third libertarian to be present and the circumstances and extent to which confidential information may be disclosed to the third libertarian. The third libertarian verbalizes understanding that they are not a patient, there is no expectation of confidentiality between the provider and the third libertarian, and the third libertarian does not have rights to access any part of the patient's file without written authorization from the patient. . Subjective: Patient presented with her daughter, Madina for the appointment. They both reported that patient has been working to make healthy choices in line with eating and activity recommendations and has been recently working to track her food more consistently and continue eliminating caffeine. She did have her neuropsychological testing completed yesterday with Dr. Dillon, and she has her follow-up appointment next week to review results and recommendations. Patient and her daughter both reported feeling excited for this appointment and are eager for additional recommendations and support for patient in making behavior changes. Patient does report that she has been relying on her daughters for support with remembering behavior changes and practicing new patterns. She does report that she has been forming new habits and remembering things more consistently with support. Patient does report being interested in trying a meal kit delivery for additional support with planning meals. Encouraged patient and her daughter to look into nutrition facts prior to ordering a meal and make changes as necessary. Validated patient's emotions and experiences and engaged in reflective listening as she explored her concerns. Reinforced focus on making healthy choices, and engaged in motivational interviewing to identify factors supporting changes, as well as barriers to change. Explored ongoing use of effective, healthy stress management skills, and encouraged patient to continue using healthy skills to manage stress. Explored strategies for behavior change, particularly with memory concerns. Encouraged ongoing social support. Overall, patient has been working hard to make changes with social support and is overall doing well. She does have her follow-up appointment to review results of neuropsychological testing scheduled this week. No follow-up appointment was set at this time. However, a follow-up appointment may be scheduled depending on any unexpected results of neuropsychological testing. Currently, psychological clearance is pending review of neuropsychological testing with no new or surprising findings. Patient mood is: calm. Affect is: euthymic. Patient denies any suicidal or homicidal ideation, plan or intent at this time. Objective: Assessment: (F54) Psychological factors affecting medical condition (primary encounter diagnosis) (E66.01, Z68.43) Class 3 severe obesity with serious comorbidity and body mass index (BMI) of 50.0 to 59.9 in adult, unspecified obesity type (HCC) (G31.84) Mild cognitive impairment Current Outpatient Medications: metoprolol tartrate, short acting, (LOPRESSOR) 25 mg tablet repaglinide (PRANDIN) 2 mg tablet memantine (NAMENDA) 10 mg tablet clopidogrel (PLAVIX) 75 mg tablet donepezil (ARICEPT) 10 mg tablet allopurinol (ZYLOPRIM) 100 mg tablet lisinopril (ZESTRIL, PRINIVIL) 20 mg tablet citalopram (CELEXA) 20 mg tablet Blood-Glucose Meter [facility] blood sugar diagnostic (BLOOD GLUCOSE TEST) test strip Lancets lancets omeprazole (PRILOSEC) 20 mg capsule furosemide (LASIX) 40 mg tablet Medication Changes: No change in medications Plan/Recommendations: Sections of plan initially documented at initial evaluation on 02/05/22. It was confirmed to be accurate at the current appointment. 1) REQUIREMENTS FOR COMPLETING BEHAVIORAL HEALTH EVALUATION: *Ongoing follow-up with nutrition to address unhealthy eating and activity patterns *Neuropsychological evaluation *Completed on April 28; review scheduled for May 04 *Additional requirements may arise in course of treatment. 2) The patient may benefit from the following during the surgery process: *Participation in a Weight Loss Surgery support group *Implement exercise program such as warm water aerobics, walking, or exercise that can be done from a chair *Follow up with psychology as an inpatient if needed *Follow up with psychology at 1, 3, 6, and 12 months postsurgery *Do not use alcohol, tobacco, and street drugs for 3 to 6 months prior to and after surgery. 3) Insurance letter not completed at this time. Patient needs to complete additional preparation as outlined above. Jacque Balderrama, Ph.D., Clinical Psychologist documented in this encounter [facility] 04-28-2022 Note HNO ID: [id number] Author: Bharath Dillon, PhD Service: ? Author Type: Psychologist Type: Progress Notes Filed: 04/28/2022 12:35 PM Note Text: Patient seen for neuropsychological testing. Report to follow. [facility] 04-28-2022 History of Present illness Narrative Patient seen for neuropsychological testing. Report to follow. documented in this encounter [facility] 04-27-2022 Miscellaneous Notes Faxed request to [facility] for copies of patient's sleep studies. Geovanna Encinas ADM documented in this encounter [facility] 04-27-2022 Instructions Joe Ayon MD - 04/27/2022 10:49 AM EDT Will schedule 30-day download on current BiPAP settings via [facility] in [place]. May need a repeat in-lab study or titration depending upon #1 above and her insurance. Encouraged on efforts of regular exercise and weight reduction as medically feasible. Will try to get copy of recent sleep studies at [facility]. Follow up in 3 months. If no problems and doing well...I will sign off on bariatric surgery. documented in this encounter [facility] 04-27-2022 History of Present illness Narrative Images from the original note were not included. PULMONARY MEDICINE CONSULT HISTORY AND PHYSICAL Patient Name: Paula Olson PRIMARY CARE PHYSICIAN: Nan Almanza DO REFERRING PHYSICIAN: Nan Almanza DO CHIEF COMPLAINT: Evaluation and ongoing treatment for BATSHEVA on BiPAP via [facility]. HISTORY OF PRESENT ILLNESS: Paula Olson is a 71 year old female, Ht 165.1 cm (5' 5 ) BMI 50.75 kg/m2, with a history of BATSHEVA for > 20 years on BiPAP of ?settings and cognitive decline who presents for evaluation prior to possible bariatric surgery at [facility]. She has not decided if she is to have surgery or go through the medical program. Her weight has been gradually increasing through the years. This patient is here for first Pulmonary office visit and consultation I reviewed available objective data including imaging as available. Main symptoms include: Feels good and sleeps well on current BiPAP machine via large nasal pillows which she wears qHS for 8-9 hours/night. Feels rested upon awakening and no WHITAKER or confusion in the AM. If she sets down and is not involved in any activities, she can fall asleep easily and may do so for a short period of time. Does not take planned naps. She generally feels more coherent and alert. Bedtime is MN and will wake up at 8-9A feeling well. Sleeps in all positions. Weight has been increasing through the years. She has never seen a sleep physician. Has not had her tonsils out to her knowledge. PAST MEDICAL HISTORY Diagnosis Date Acute gastritis without mention of hemorrhage Allergic rhinitis, cause unspecified Allergic rhinitis ASCVD (arteriosclerotic cardiovascular disease) 02/17/2003 Benign neoplasm of colon 09/03/2005 CKD (chronic kidney disease) stage 3, GFR 30-59 ml/min ([facility]) 06/01/2016 Dr. Chairez, nephrology Depressive disorder, not elsewhere classified 12/13/2008 Diabetes ([facility]) 08/19/1993 diagnosed. DM type 2 causing CKD stage 4 ([facility]) 09/09/2014 GERD (gastroesophageal reflux disease) 12/01/2010 Gout involving toe 11/23/2016 Hyperlipidemia 06/30/2015 Hypertension 08/19/19993 NM (myocardial infarction) ([facility]) Morbid obesity ([facility]) BATSHEVA on CPAP Postmenopausal atrophic vaginitis 05/15/2012 Renal failure Snoring Trigeminal nerve disorder, unspecified Umbilical hernia without mention of obstruction or gangrene Vitamin D deficiency 04/09/2010 PAST SURGICAL HISTORY Procedure Laterality Date APPENDECTOMY 1971 CHOLECYSTECTOMY 1971 Cholecystectomy COLONOSCOPY FLX DX W/COLLJ SPEC WHEN PFRMD 09/03/05 Colonoscopy COLONOSCOPY FLX DX W/COLLJ SPEC WHEN PFRMD 03/06/15 Colonoscopy EGD TRANSORAL BIOPSY SINGLE/MULTIPLE 11/16/2008 EGD TRANSORAL BIOPSY SINGLE/MULTIPLE 12/01/10 ESOPHAGOGASTRODUODENOSCOPY TRANSORAL DIAGNOSTIC 03/06/15 EGD HEART SURGERY HX Heart Stent LEFT HEART CATH,PERCUTANEOUS 02/2003 moderate CAD PAST SURGICAL HISTORY OF Right 07/24/2015 Arthroscopy of Right Shoulder with Synovectomy, debridement of glenohumeral joint, biceps tenotomy, acromioplasty and distal claviculectomy RPR UMBILICAL HRNA 5 YRS/> REDUCIBLE 01/22/08 SINUS SURGERY PROC UNLISTED 04/10/1999 XCAPSL CTRC RMVL INSJ IO LENS PROSTH W/O ECP 03/30/2013 Cataract Extraction with PC IOL Dr Tolentino [facility] XCAPSL CTRC RMVL INSJ IO LENS PROSTH W/O ECP 04/20/2013 Cataract Extraction with PC IOL Dr Tolentino left eye FAMILY HISTORY Problem Relation Age of Onset Diabetes Mother Heart Mother Hypertension Mother Lipids Mother Diabetes Maternal Aunt x 2 No reported family hx of ILD fibrosis, PAH, Tb, lung cancer, A1AT deficiency Social History Tobacco Use Smoking status: Never Smokeless tobacco: Never Substance Use Topics Alcohol use: No Drug use: No Ambulatory, see vaccine HX, 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 [employer]. Lives in [place] with her husban. Rare alcohol use. FHx (-) for respiratory or chest-related diseases. CURRENT OUTPATIENT MEDICATIONS: metoprolol tartrate, short acting, (LOPRESSOR) 25 mg tablet Take 25 mg by mouth twice daily. repaglinide (PRANDIN) 2 mg tablet Take by mouth three times daily before meals. memantine (NAMENDA) 10 mg tablet Take 10 mg by mouth once daily. clopidogrel (PLAVIX) 75 mg tablet clopidogrel 75 mg tablet donepezil (ARICEPT) 10 mg tablet 5 mg once daily. Takes in am allopurinol (ZYLOPRIM) 100 mg tablet Take 1 tablet by mouth once daily. (Patient taking differently: Take 100 mg by mouth twice daily.) lisinopril (ZESTRIL, PRINIVIL) 20 mg tablet Take 1 tablet by mouth once daily. citalopram (CELEXA) 20 mg tablet Take 1 tablet by mouth twice daily. Blood-Glucose Meter [facility] Dispense 1 kit blood sugar diagnostic (BLOOD GLUCOSE TEST) test strip Test blood sugar(s) 2 xdaily. Dx: E11.22. Insulin: No Lancets lancets Test blood sugar(s) 2 x daily. Dx: E11.22. Insulin: No omeprazole (PRILOSEC) 20 mg capsule Take 1 capsule by mouth twice daily. furosemide (LASIX) 40 mg tablet Take 1 tablet by mouth twice daily as needed. (Patient taking differently: Take 40 mg by mouth once daily.) ALLERGIES: ALLERGIES Allergen Reactions Naproxyn [Naproxen] Anaphylaxis given at the same time as prednisone, cannot take together. Had internal bleeding. Prednisone Cannot be given with Naproxy, had severe internal bleeding was hospitalized. Augmentin [Amoxicil* GI Upset Possibly GI. Can tolerate PCN and Amoxicillin Axid [Nizatidine] Byetta [Exenatide] GI Upset chronic abdominal pain, possibly low level pancreatitis? Crestor [Rosuvastat* Muscle cramps Flonase [Fluticason* headaches Indocin [Indomethac* Mobic [Meloxicam] Other: See Comments Problems with kidneys Naldecon Senior Ex * Neomycin Oruvail [Ketoprofen] Septra [Sulfamethox* Mpqfzzu-Nsg-Drl Red* Other: See Comments myalgia Tranxene-Sd [Cloraz* unknown Zantac [Ranitidine * Zetia [Ezetimibe] Joint Stiffness Zoloft [Sertraline * unknown REVIEW OF SYSTEMS Constitutional: Well developed. no acute distress throughout the interview. No dyspnea throughout the interview; not acutely ill. No fevers, chills, night sweats HEENT: No frequent or significant headaches, changes in hearing or vision, tinnitus, epistaxis or other nasal problems, normal pharynx. Good voice. Denies lymphadenopathy; denies allergic rhinitis. RESPIRATORY: No dyspnea, No wheezing, No hemoptysis, No excessive phlegm, No nonpurulent phlegm, No pleuritic pain, Yes ESCOBAR which she attributes to her weight. BATSHEVA: Yes apnea, No hypersomnolence but can easily fall asleep if not stimulated., Yes cpap, No snoring, No unusual breathing patterns during sleep, No nocturia, No frequent awakenings, No morning fatigue. CARDIOVASCULAR: No palpitations, No heart failure, No edema, No chest pain, No stents. No hx CABG GASTROINTESTINAL: No abdominal discomfort, No blood in stools or black stools or change in bowel habits, weight increased 30 pounds since 10 years. No liver failure or active hepatitis. No biliary colic. GENITOURINARY: No history of dysuria, urgency, frequency, or incontinence, mass, hematuria, or pyuria SENIOR SYSTEM OPERATOR: Not reviewed MUSCULOSKELETAL: No for joint pain or swelling, muscle aches, bone pain, serositis or scleroderma or other connective tissue diseases; no major arthralgias NEUROLOGIC: No focal numbness or weakness, headaches, dizziness or syncope or near-syncope. No recent CVA/TIA. No gait disturbance. No seizures. SKIN: No for lesions, rash, and itching. No jaundice PSYCHIATRIC: No sleep disturbance, mood disorder, depression, manic episodes and recent psychosocial stressors. HEMATOLOGIC/LYMPHATIC/IMMUNOLOGIC: No anemia, No hx lymphoma, No bleeding or clotting issues. ENDOCRINE: Weight up gradually through the years, No for cold or heat intolerance, polyuria, polydipsia and goiter. denies thyroid issues. No fatigue. The remainder of the ROS was negative or as per documentation. PHYSICAL EXAMINATION: VITAL SIGNS: BP 124/59 Pulse 63 Temp 97.3 Resp 16 Ht 5' 5 (1.65m) Wt 305 lb (138.3kg) SpO2 94% LMP 02/01/2006 BMI 50.75 kg/(m^2). Neck size is 19 inches General appearance: Well-developed well-nourished Age appropriate female. Cordial. Comprehends well. Good hygiene. Skin: Normal turgor. Not pallorous. Not diaphoretic. No jaundice. No scars. No rashes. Eyes: Pupils equally reactive to light. Midline. No jaundice. Vision reasonable grossly. EOMI ENT: No palpable lymphadenopathy. Hearing intact. Normocephalic. No neck scar. No thyromegaly. Fair dentition in the top and lower plates. No macroglossia. Supple neck. No carotid bruits. No venous hums. No retrognathia. Grade IV airway score. Heme/Lymph: No significant neck adenopathy. Negative JVD in the setting position Lungs: Clear A&P Yes, clear to auscultation. Good inspiratory capacity. No overt wheeze. No pleural rub. Heart:: regular rate and rhythm. Normal heart tones. No significant rub, or gallop. Murmur No. Edema- no. Normal P2 . No rub or mackenzie. ABD: Abdomen soft, non-tender. Bowel sounds normal. No masses, organomegaly. No bruits. Increased central girth Musculoskeletal: nl gait. No limp. Ambulation with cane due to weight and arthritis. Looks comfortable with walking. Extremities without cyanosis or clubbing. No deformities, No edema, or skin discoloration. Good capillary refill PSYCH: Alert. Responsive. Seems to comprehend reasonably well. Interactive. Engaged- yes, with good recall. Neuro: Nonfocal. Alert. Oriented. Speech intact. No gross cerebellar dysfunction. Gait observed as above. CN II-XII grossly intact. Sensory and motor function grossly within normal limits. DATA: Diagnostic tests reviewed for today's visit, films/specimens were personally reviewed by me: LAST LAB RESULTS: No results found for this basename: inr:1,ptsec:1 Glucose (mg/dL) Date Value 01/20/2022 160 03/07/2017 196 Potassium (mmol/L) Date Value 01/20/2022 4.6 03/07/2017 4.9 Sodium (mmol/L) Date Value 01/20/2022 137 03/07/2017 136 Chloride (mmol/L) Date Value 01/20/2022 102 03/07/2017 98 CO2 (mmol/L) Date Value 01/20/2022 25 03/07/2017 22 Creatinine (mg/dL) Date Value 01/20/2022 1.49 03/07/2017 1.59 BUN (mg/dL) Date Value 01/20/2022 42 03/07/2017 33 Anion Gap (mmol/L) Date Value 01/20/2022 10 03/07/2017 16 Calcium (mg/dL) Date Value 03/07/2017 9.2 Calcium, Total (mg/dL) Date Value 01/20/2022 9.3 Protein, Total (g/dL) Date Value 01/20/2022 6.9 06/02/2016 6.7 Albumin (g/dL) Date Value 01/20/2022 4.4 06/02/2016 4.3 Bilirubin, Total (mg/dL) Date Value 01/20/2022 0.4 06/02/2016 0.5 Alkaline Phosphatase (U/L) Date Value 01/20/2022 85 06/02/2016 74 AST (U/L) Date Value 01/20/2022 17 06/02/2016 23 ALT (U/L) Date Value 01/20/2022 17 06/02/2016 21 Glucose Date Value Ref Range Status 01/20/2022 160 (H) 74 - 99 mg/dL Final Comment: The [place] Diabetes Association (ADA) provides guidance for cutoff values for fasting glucose and random glucose. The ADA defines fasting as no caloric intake for at least 8 hours. Fasting plasma glucose results between 100 to 125 mg/dL indicate increased risk for diabetes (prediabetes). Fasting plasma glucose results greater than or equal to 126 mg/dL meet the criteria for diagnosis of diabetes. In the absence of unequivocal hyperglycemia, results should be confirmed by repeat testing. In a patient with classic symptoms of hyperglycemia or hyperglycemic crisis, random plasma glucose results greater than or equal to 200 mg/dL meet the criteria for diagnosis of diabetes. Reference: Standards of Medical Care in Diabetes 2016, [place] Diabetes Association. Diabetes Care. 2016.39(Suppl 1). CBC with diff: WBC 6.91 01/20/2022 RBC 4.22 01/20/2022 Hemoglobin 13.3 01/20/2022 Hematocrit 40.3 01/20/2022 MCV 95.5 01/20/2022 MCH 31.5 01/20/2022 MCHC 33.0 01/20/2022 RDW-CV 14.0 01/20/2022 Platelet Count 223 01/20/2022 MPV 9.2 01/20/2022 Neut% 61.9 03/07/2017 Lymph% 25.0 03/07/2017 [place]% 9.1 03/07/2017 Eosin% 3.0 03/07/2017 Baso% 1.0 03/07/2017 Abs Neut (ANC) 4.96 03/07/2017 Abs [place] 0.73 03/07/2017 Abs Eosin 0.24 03/07/2017 Abs Baso 0.08 03/07/2017 OTHER TESTING: CT chest: NA Chest xray: 10/04/14: Normal chest Heart echo: NA No textual results found for the specified procedure(s). Medications reviewed Education provided today regarding the stated disease states IMPRESSIONS: 1. G47.33 BATSHEVA treated with BiPAP (primary encounter diagnosis) Comment: Unknown settings 2. R41.89 Cognitive impairment Comment: On Namenda and Aricept 3. E66.01, Z68.43 Class 3 severe obesity with serious comorbidity and body mass index (BMI) of 50.0 to 59.9 in adult, unspecified obesity type (HCC) Comment: Weight has been going up almost yearly and up 30lbs x 10 years 4. Z98.84 Bariatric surgery status Comment: Undecided regarding medical or surgical program? 5. Unspecified depression PLAN: Will schedule 30-day download on current BiPAP settings via [facility] in [place]. May need a repeat in-lab study or titration depending upon #1 above and her insurance. Encouraged on efforts of regular exercise and weight reduction as medically feasible. Will try to get copy of recent sleep studies at [facility]. Follow up in 3 months. If no problems and doing well...I will sign off on bariatric surgery. Written and verbal health teaching given to patient, patient verbalizes understanding and agrees with treatment plan. Electronically Signed: Joe Ayon MD April 27, 2022 Neck circumference 19in MYC EPWORTH SLEEPINESS SCALE Question 04/26/2022 12:43 PM EDT - Filed by Patient How likely are you to doze off or fall asleep in the situations described below, in contrast to feeling just tired? Sitting and Reading? Slight chance of dozing Watching TV? Slight chance of dozing Sitting inactive in a public place (e.g a theater or a meeting) Slight chance of dozing As a passenger in a car for an hour without a break? Slight chance of dozing Lying down to rest in the afternoon when circumstances permit? Moderate chance of dozing Sitting and talking to someone? No chance of dozing Sitting quietly after lunch without alcohol? Slight chance of dozing In a car, while stopped for a few minutes in traffic? No chance of dozing [place] Sleepiness Scale Total Score (range: 0 - 24) 7 (No daytime sleepiness) documented in this encounter [facility] 04-05-2022 Note HNO ID: [id number] Author: Olamide Rowell RD Service: ? Author Type: Registered Dietitian Type: Progress Notes Filed: 04/05/2022 12:03 PM Note Text: Paula Olson--Visit conducted via [employer] (audio and visual) d/t COVID 19 Month 4/6 Pre-Op weight goal: 293# Education Class: Patient will receive instruction regarding healthy food choices and eating behaviors identified as optimal when preparing for surgery, losing weight after surgery, and maintaining weight loss long-term. Patient will also receive instruction regarding the Bariatric Full Liquid diet following surgery and optimal post-operative high-protein supplement choices. Education class to be completed prior to surgery. Behaviors Accomplished: Visit # 4 Date: 04/01/2022 Weight: (!) 138.8 kg (306 lb) per pt report (weighed this morning) Weight goal met: No: pt presents with a 3# wt loss since last encounter. Currently 2# below initial wt and 13# above GW. Behaviors that helped/hindered weight loss: HELPED: cutting out breads, has been including yogurt in diet. Daily multivitamin Sip beverages slowly Eat slowly,chew well Exercise: formal exercise of walking around flea markets/zoo + cleaning the house--+ general activity of doing something (walking for more than 30 minutes at a time ~3x/week) -skipping meal(s) daily -1/2 cafe, 24oz (has reduced down from 64oz at last appt) -no carbonation, no alcohol -1x/month on average of dining out meals 24 hr recall: B: coffee (1/2 cafe) L: english steak--3oz and fried potatoes--1/2 cup D: leftovers--3oz and fried potatoes--1/2 cup S: 1/2 protein bar with nuts- (6g added sugar and 10g protein per bar) F: water (2, 32oz tumblers) + 24oz 1/2 decaf coffee --47g protein yesterday --64oz adjusted fluid Written information provided and reviewed: Healthy plate/menus Behavior Checklist Journal Tracking protein intake Tracking liquid intake -maintaining a food journal, increase exercise, 3 meals -protein calculation sheet--via [employer] Pt verbally reports not maintaining a food journal. Pt presents for month 4/6 to assess for nutrition clearance. Of note, pt is on MDT pathway with the following recommendations--of note does have hx of MCI diagnosis: Patient needs updated neuropsychology testing (04/28/22) and continued family support while going through surgical program. Patient would benefit from 1:1 RD visits monthly Pt's daughter, Madina, present during appt today. Pt presents with a 3# wt loss. She does report not maintaining a food journal, states barriers include being an inconvenience, however, daughter reports based off MCI difficulty with recalling to do so. It was recommended to have food journal present at kitchen table or where pt consumes meals and to document meals during the meal time to improve accuracy d/t MCI and aid with tracking intake. Of note, Madina does not live with pt, however, does verbalize strong support for patient and lives close to pt and they do see each other every few days. Reviewed for pt to document a meal as being consumed with efforts of portion sizes (palm of hand = 3oz) and Madina agreeable to aid with calculations. Discussed goal of around 60g protein d/t CKD, which pt and daughter report supported by DM/fireproof door assembler provider. Also reviewed goal of 64oz fluids--she does report consuming 2, 32oz tumblers of water in 24 hour recall. Regarding activity, does go out and do activities with family about 3x/week at [employer], walking--reviewed need of at least 10 minute interval to count towards activity, she is open to start engaging in chair exercises as reviewed at last RD appt--pt set goal of 3x/week for 10 minutes to start--reviewed need of 150 active minutes per week. Has reduced intake of caffeine from 32oz per day down to 12oz per day--commended on this, pt agreeable to attempt 8oz 1/2 cafe with goal of d/c'ing. Denies intake of carbonation/alcohol. Dining out minimal at 1x/month. Does report skipping 1 meal per day on average d/t not being hungry, reviewed use of a protein shake as meal replacement (has tried premier protein, reviewed this contains 30g protein of 60g goal to note when tracking, suggested to touch base with nephrology to confirm appropriate with CKD). Goals: Goals - Eat 3 meals every day--protein shake as meal replacement - formal exercise 5-7x/weel, goal of 30 minutes (chair exercises--in 10 minute intervals as tolerated)--start with 3 days per week and increase, overall goal of 150 minutes per week - limit to 8oz of 1/2 cafe coffee with goal of discontinuing next month - maintain a food journal 5-7x/week, keep at kitchen table, document as you are eating with portion sizes - track protein and fluid--goal of 55-60g protein and 64oz of fluids per day The patient meets NIH guidelines for weight loss surgery and has been thoroughly evaluated and educated on good dietary prac (more content not included)... [facility] 04-05-2022 History of Present illness Narrative Paula Olson--Visit conducted via [employer] (audio and visual) d/t COVID 19 Month 4/6 Pre-Op weight goal: 293# Education Class: Patient will receive instruction regarding healthy food choices and eating behaviors identified as optimal when preparing for surgery, losing weight after surgery, and maintaining weight loss long-term. Patient will also receive instruction regarding the Bariatric Full Liquid diet following surgery and optimal post-operative high-protein supplement choices. Education class to be completed prior to surgery. Behaviors Accomplished: Visit # 4 Date: 04/01/2022 Weight: (!) 138.8 kg (306 lb) per pt report (weighed this morning) Weight goal met: No: pt presents with a 3# wt loss since last encounter. Currently 2# below initial wt and 13# above GW. Behaviors that helped/hindered weight loss: HELPED: cutting out breads, has been including yogurt in diet. Daily multivitamin Sip beverages slowly Eat slowly,chew well Exercise: formal exercise of walking around flea markets/zoo + cleaning the house--+ general activity of doing something (walking for more than 30 minutes at a time ~3x/week) -skipping meal(s) daily -1/2 cafe, 24oz (has reduced down from 64oz at last appt) -no carbonation, no alcohol -1x/month on average of dining out meals 24 hr recall: B: coffee (1/2 cafe) L: english steak--3oz and fried potatoes--1/2 cup D: leftovers--3oz and fried potatoes--1/2 cup S: 1/2 protein bar with nuts- (6g added sugar and 10g protein per bar) F: water (2, 32oz tumblers) + 24oz 1/2 decaf coffee --47g protein yesterday --64oz adjusted fluid Written information provided and reviewed: Healthy plate/menus Behavior Checklist Journal Tracking protein intake Tracking liquid intake -maintaining a food journal, increase exercise, 3 meals -protein calculation sheet--via [employer] Pt verbally reports not maintaining a food journal. Pt presents for month 4/6 to assess for nutrition clearance. Of note, pt is on MDT pathway with the following recommendations--of note does have hx of MCI diagnosis: Patient needs updated neuropsychology testing (04/28/22) and continued family support while going through surgical program. Patient would benefit from 1:1 RD visits monthly Pt's daughter, Madina, present during appt today. Pt presents with a 3# wt loss. She does report not maintaining a food journal, states barriers include being an inconvenience, however, daughter reports based off MCI difficulty with recalling to do so. It was recommended to have food journal present at kitchen table or where pt consumes meals and to document meals during the meal time to improve accuracy d/t MCI and aid with tracking intake. Of note, Madina does not live with pt, however, does verbalize strong support for patient and lives close to pt and they do see each other every few days. Reviewed for pt to document a meal as being consumed with efforts of portion sizes (palm of hand = 3oz) and Madina agreeable to aid with calculations. Discussed goal of around 60g protein d/t CKD, which pt and daughter report supported by DM/fireproof door assembler provider. Also reviewed goal of 64oz fluids--she does report consuming 2, 32oz tumblers of water in 24 hour recall. Regarding activity, does go out and do activities with family about 3x/week at [employer], walking--reviewed need of at least 10 minute interval to count towards activity, she is open to start engaging in chair exercises as reviewed at last RD appt--pt set goal of 3x/week for 10 minutes to start--reviewed need of 150 active minutes per week. Has reduced intake of caffeine from 32oz per day down to 12oz per day--commended on this, pt agreeable to attempt 8oz 1/2 cafe with goal of d/c'ing. Denies intake of carbonation/alcohol. Dining out minimal at 1x/month. Does report skipping 1 meal per day on average d/t not being hungry, reviewed use of a protein shake as meal replacement (has tried premier protein, reviewed this contains 30g protein of 60g goal to note when tracking, suggested to touch base with nephrology to confirm appropriate with CKD). Goals: Goals Eat 3 meals every day--protein shake as meal replacement formal exercise 5-7x/weel, goal of 30 minutes (chair exercises--in 10 minute intervals as tolerated)--start with 3 days per week and increase, overall goal of 150 minutes per week limit to 8oz of 1/2 cafe coffee with goal of discontinuing next month maintain a food journal 5-7x/week, keep at kitchen table, document as you are eating with portion sizes track protein and fluid--goal of 55-60g protein and 64oz of fluids per day The patient meets NIH guidelines for weight loss surgery and has been thoroughly evaluated and educated on good dietary practices. Patient is capable of following these guidelines pre-and post-surgically. From nutrition standpoint, the has partially met nutrition clearance and will need to demonstrate 3 meals daily, increase exercise to 150 minutes per week, eliminate caffeine, maintain a food log 5x/week with tracking both protein and fluid intake, meeting protein/fluid goals at least 5 days per week to receive nutrition clearance. Plan: follow up with RD x 1 month to assess for nutrition clearance as month 5. Pt scheduled for neuro psych testing on 04/28, pulm on 04/27, and states re-scheduled echo on 04/13. Total time in direct patient contact = 36 minutes. Greater than 50% of the time was spent in counseling and/or coordination of care. Olamide Rowell RD This note was generated using voice recognition technology and may contain grammatical errors. documented in this encounter [facility] 03-08-2022 Note HNO ID: [id number] Author: Tiffany Escobedo RD Service: ? Author Type: Registered Dietitian Type: Progress Notes Filed: 03/08/2022 2:30 PM Note Text: Paula Olson This patient encounter was completed virtually using a secure, HIPPA compliant video chat software program with the patient's consent. Pre-Op weight goal: 293 lbs Education Class: Patient will receive instruction regarding healthy food choices and eating behaviors identified as optimal when preparing for surgery, losing weight after surgery, and maintaining weight loss long-term. Patient will also receive instruction regarding the Bariatric Full Liquid diet following surgery and optimal post-operative high-protein supplement choices. Education class to be completed prior to surgery. Behaviors Accomplished: Visit # 3/6 Date: 03/08/22 Weight: 309 lbs Weight goal met: No - stable since last RD visit, 16# above GW Behaviors that helped/hindered weight loss: helped Daily multivitamin No high fat/fast foods Hindered: Limited physical activity Not currently keeping a food journal Not tracking protein/fluid intake Endorsing in caffeine 24 hr recall: 03/07/22 B:sausage sandwich L: sausage sandwich D: sausage sandwich F: 96 oz water - 64 oz half caf coffee -- 32 oz Protein per recall:63g Protein intake:not tracking at this time Fluid intake: > 64 oz but is still drinking caffeine Exercise: still limited, walking around [place] camp [place] this weekend w/ cane or walker -- did recommend chair exercises 5x/week for 30 min -- Not meeting goals Caffeine: half caff -- still working on eliminating Carbonation: none Alcohol: none Dining out: 1x/every other week or less Per PAY STATION DEPARTMENT MANAGER note 01/08/22: Currently diagnosed as CKD stage III?she does follow with nephrology. There is mention of possible CHF diagnosis but patient is a poor historian--she is followed by cardiology Will need altered protein needs due to CKD stage III. Adjusted protein goals for patient is 60 g/day. Verbalized she is not keeping a food journal at this time. Per 24 hr recall, meeting protein goals, not meeting fluid goals.. Is not endorsing in formal exercise at this time, reviewed incorporating chair exercises daily to reach goals. Patient reports taking a daily MV. Patient's daughter Isa, present for appointment today as well. Did advise patient she will be working with the RD on a monthly basis to help her meet her goals. The patient meets NIH guidelines for weight loss surgery and has been thoroughly evaluated and educated on good dietary practices. Patient is capable of following these guidelines pre-and post-surgically. From nutrition standpoint, the has partially met nutrition clearance and will need to demonstrate use food journal 5-7x/week, track/calculate protein intake to reach 55-60g protein daily, increase fluid intake to 64 oz daily, eliminate caffeine completely, and increase exercise to 5x/week for 30 min (as tolerated -- CHAIR EXERCISES) to receive nutrition clearance. Per Antonia MDT recs: pt will benefit from 1:[address] Plan: follow up with RD in 1 month Goals - Eat 3 meals every day - eliminate caffiene completely - formal exercise 5-7x/week, as tolerated, goal of 30 minutes (chair exercises) - increase fluid intake to 64 oz - journal daily and bring to all appointments - track and calculate protein intake to reach 55-60g/daily I spent 30 minutes in the visit, with more than 50% of the total [id number]-rq-[id number] time of the visit in counseling / coordination of care. Tiffany Escobedo RD This note was generated using voice recognition technology and may contain grammatical errors. [facility] 03-08-2022 Note HNO ID: [id number] Author: Martine Amin APRN.GIFT SHOP MANAGER Service: ? Author Type: Nurse Practitioner Type: Progress Notes Filed: 03/08/2022 1:53 PM Note Text: BARIATRIC SURGERY CLINIC FOLLOW UP NOTE DISTANCE HEALTH VISIT This Team Access Model visit is a virtual encounter. It required patient-provider interaction for the medical decision making as documented below. Consent was obtained to complete today's distance health visit. HPI: Paula Olson a 71 year old female for presents for medically supervised weight loss treatment of her obesity related co morbidities. This individual presents for month 3 of 6 required visits completed as a virtual telephone encounter Paula Olson weight calculation is unchanged since her last visit. She admits that she has not been keeping a food journal but does feel that she has been meeting fluid and protein goals. Due to patients mild cognitive impairment she will be having more frequent visits with RD to ensure compliance. Her daughter, Madina, has been helping her prep meals and keep a food journal. She denies recent illnesses, recent hospitalizations, recent ED visits. Denies acid reflux, abdominal pain, changes to stool pattern. She continues to use CPAP nightly. She has not scheduled with pulmonology yet for preoperative clearance, this was reminded today. Cardiac clearance is pending echocardiogram Reviewed results of upper GI which were within normal limits. - medical history - medications - allergies HISTORY REVIEWED (electronic chart updated): PAST MEDICAL HISTORY Diagnosis Date - Acute gastritis without mention of hemorrhage - Allergic rhinitis, cause unspecified Allergic rhinitis - ASCVD (arteriosclerotic cardiovascular disease) 02/17/2003 - Benign neoplasm of colon 09/03/2005 - CKD (chronic kidney disease) stage 3, GFR 30-59 ml/min ([facility]) 06/01/2016 Dr. Chairez, nephrology - Depressive disorder, not elsewhere classified 12/13/2008 - Diabetes (HCC) 08/19/1993 diagnosed. - DM type 2 causing CKD stage 4 (HCC) 09/09/2014 - GERD (gastroesophageal reflux disease) 12/01/2010 - Gout involving toe 11/23/2016 - Hyperlipidemia 06/30/2015 - Hypertension - NM (myocardial infarction) (HCC) - Morbid obesity (HCC) - BATSHEVA on CPAP - Postmenopausal atrophic vaginitis 05/15/2012 - Renal failure - Snoring - Trigeminal nerve disorder, unspecified - Umbilical hernia without mention of obstruction or gangrene - Vitamin D deficiency 04/09/2010 Social: Social History Tobacco Use - Smoking status: Never Smoker - Smokeless tobacco: Never Used Substance Use Topics - Alcohol use: No - Drug use: No Medications: Current Outpatient Medications Medication Sig - metoprolol tartrate, short acting, (LOPRESSOR) 25 mg tablet Take 25 mg by mouth twice daily. - repaglinide (PRANDIN) 2 mg tablet Take by mouth three times daily before meals. - memantine (NAMENDA) 10 mg tablet Take 10 mg by mouth once daily. - clopidogrel (PLAVIX) 75 mg tablet clopidogrel 75 mg tablet - donepezil (ARICEPT) 10 mg tablet 5 mg once daily. Takes in am - allopurinol (ZYLOPRIM) 100 mg tablet Take 1 tablet by mouth once daily. (Patient taking differently: Take 100 mg by mouth twice daily. ) - lisinopril (ZESTRIL, PRINIVIL) 20 mg tablet Take 1 tablet by mouth once daily. - citalopram (CELEXA) 20 mg tablet Take 1 tablet by mouth twice daily. - Blood-Glucose Meter [facility] Dispense 1 kit - blood sugar diagnostic (BLOOD GLUCOSE TEST) test strip Test blood sugar(s) 2 xdaily. Dx: E11.22. Insulin: No - Lancets lancets Test blood sugar(s) 2 x daily. Dx: E11.22. Insulin: No - furosemide (LASIX) 40 mg tablet Take 1 tablet by mouth twice daily as needed. (Patient taking differently: Take 40 mg by mouth once daily. ) - omeprazole (PRILOSEC) 20 mg capsule Take 1 capsule by mouth twice daily. (Patient not taking: Reported on 02/18/2021 ) No current facility-administered medications for this visit. REVIEW OF SYSTEMS General: No fatigue or fevers HEENT: Negative for frequent or significant headaches, No changes in hearing or vision, no nose bleeds or other nasal problems PAP Therapy: Using it nightly. GI:No nausea, vomiting, or diarrhea and No heartburn or reflux symptoms Muskuloskeletal: Negative for joint pain or swelling, back pain or muscle pain Skin: Negative for lesions, rash, and itching Psych: Negative for sleep disturbance, mood disorder and recent psychosocial stressors. Positive for memory loss PHYSICAL EXAMINATION Wt 140.2 kg (309 lb) BMI 53.04 kg/m2 Ht 162.6 cm (5' 4 ) BMI 53.04 kg/m2 GENERAL APPEARANCE: Pleasant, interacts appropriately and in no apparent distress. Appropriately groomed, happy, smiling, and interactive SKIN: Skin of normal texture, temperature without rashes/lesions/ulcerations. LUNGS: unlabored on room air negative findings: normal respiratory rate no cough NEURO/PSYCH: Oriented to person, pl (more content not included)... [facility] 03-08-2022 History of Present illness Narrative Paula Olson This patient encounter was completed virtually using a secure, HIPPA compliant video chat software program with the patient's consent. Pre-Op weight goal: 293 lbs Education Class: Patient will receive instruction regarding healthy food choices and eating behaviors identified as optimal when preparing for surgery, losing weight after surgery, and maintaining weight loss long-term. Patient will also receive instruction regarding the Bariatric Full Liquid diet following surgery and optimal post-operative high-protein supplement choices. Education class to be completed prior to surgery. Behaviors Accomplished: Visit # 3/6 Date: 03/08/22 Weight: 309 lbs Weight goal met: No - stable since last RD visit, 16# above GW Behaviors that helped/hindered weight loss: helped Daily multivitamin No high fat/fast foods Hindered: Limited physical activity Not currently keeping a food journal Not tracking protein/fluid intake Endorsing in caffeine 24 hr recall: 03/07/22 B:sausage sandwich L: sausage sandwich D: sausage sandwich F: 96 oz water - 64 oz half caf coffee -- 32 oz Protein per recall:63g Protein intake:not tracking at this time Fluid intake: > 64 oz but is still drinking caffeine Exercise: still limited, walking [place] this [place] w/ cane or walker -- did recommend chair exercises 5x/week for 30 min -- Not meeting goals Caffeine: half caff -- still working on eliminating Carbonation: none Alcohol: none Dining out: 1x/every other week or less Per PAY STATION DEPARTMENT MANAGER note 01/08/22: Currently diagnosed as CKD stage III she does follow with nephrology. There is mention of possible CHF diagnosis but patient is a poor historian--she is followed by cardiology Will need altered protein needs due to CKD stage III. Adjusted protein goals for patient is 60 g/day. Verbalized she is not keeping a food journal at this time. Per 24 hr recall, meeting protein goals, not meeting fluid goals.. Is not endorsing in formal exercise at this time, reviewed incorporating chair exercises daily to reach goals. Patient reports taking a daily MV. Patient's daughter Isa, present for appointment today as well. Did advise patient she will be working with the RD on a monthly basis to help her meet her goals. The patient meets NIH guidelines for weight loss surgery and has been thoroughly evaluated and educated on good dietary practices. Patient is capable of following these guidelines pre-and post-surgically. From nutrition standpoint, the has partially met nutrition clearance and will need to demonstrate use food journal 5-7x/week, track/calculate protein intake to reach 55-60g protein daily, increase fluid intake to 64 oz daily, eliminate caffeine completely, and increase exercise to 5x/week for 30 min (as tolerated -- CHAIR EXERCISES) to receive nutrition clearance. Per February MDT recs: pt will benefit from 1:[address] Plan: follow up with RD in 1 month Goals Eat 3 meals every day eliminate caffiene completely formal exercise 5-7x/week, as tolerated, goal of 30 minutes (chair exercises) increase fluid intake to 64 oz journal daily and bring to all appointments track and calculate protein intake to reach 55-60g/daily I spent 30 minutes in the visit, with more than 50% of the total stbh-iy-cqoe time of the visit in counseling / coordination of care. Tiffany Ecsobedo RD This note was generated using voice recognition technology and may contain grammatical errors. documented in this encounter [facility] 03-08-2022 History of Present illness Narrative BARIATRIC SURGERY CLINIC FOLLOW UP NOTE DISTANCE HEALTH VISIT This Team Access Model visit is a virtual encounter. It required patient-provider interaction for the medical decision making as documented below. Consent was obtained to complete today's distance health visit. HPI: Paula Olson a 71 year old female for presents for medically supervised weight loss treatment of her obesity related co morbidities. This individual presents for month 3 of 6 required visits completed as a virtual telephone encounter Paula Olson weight calculation is unchanged since her last visit. She admits that she has not been keeping a food journal but does feel that she has been meeting fluid and protein goals. Due to patients mild cognitive impairment she will be having more frequent visits with RD to ensure compliance. Her daughter, Madina, has been helping her prep meals and keep a food journal. She denies recent illnesses, recent hospitalizations, recent ED visits. Denies acid reflux, abdominal pain, changes to stool pattern. She continues to use CPAP nightly. She has not scheduled with pulmonology yet for preoperative clearance, this was reminded today. Cardiac clearance is pending echocardiogram Reviewed results of upper GI which were within normal limits. - medical history - medications - allergies HISTORY REVIEWED (electronic chart updated): PAST MEDICAL HISTORY Diagnosis Date Acute gastritis without mention of hemorrhage Allergic rhinitis, cause unspecified Allergic rhinitis ASCVD (arteriosclerotic cardiovascular disease) 02/17/2003 Benign neoplasm of colon 09/03/2005 CKD (chronic kidney disease) stage 3, GFR 30-59 ml/min ([facility]) 06/01/2016 Dr. Chairez, nephrology Depressive disorder, not elsewhere classified 12/13/2008 Diabetes ([facility]) 08/19/1993 diagnosed. DM type 2 causing CKD stage 4 ([facility]) 09/09/2014 GERD (gastroesophageal reflux disease) 12/01/2010 Gout involving toe 11/23/2016 Hyperlipidemia 06/30/2015 Hypertension 08/19/19993 NM (myocardial infarction) ([facility]) Morbid obesity ([facility]) BATSHEVA on CPAP Postmenopausal atrophic vaginitis 05/15/2012 Renal failure Snoring Trigeminal nerve disorder, unspecified Umbilical hernia without mention of obstruction or gangrene Vitamin D deficiency 04/09/2010 Social: Social History Tobacco Use Smoking status: Never Smoker Smokeless tobacco: Never Used Substance Use Topics Alcohol use: No Drug use: No Medications: Current Outpatient Medications Medication Sig metoprolol tartrate, short acting, (LOPRESSOR) 25 mg tablet Take 25 mg by mouth twice daily. repaglinide (PRANDIN) 2 mg tablet Take by mouth three times daily before meals. memantine (NAMENDA) 10 mg tablet Take 10 mg by mouth once daily. clopidogrel (PLAVIX) 75 mg tablet clopidogrel 75 mg tablet donepezil (ARICEPT) 10 mg tablet 5 mg once daily. Takes in am allopurinol (ZYLOPRIM) 100 mg tablet Take 1 tablet by mouth once daily. (Patient taking differently: Take 100 mg by mouth twice daily. ) lisinopril (ZESTRIL, PRINIVIL) 20 mg tablet Take 1 tablet by mouth once daily. citalopram (CELEXA) 20 mg tablet Take 1 tablet by mouth twice daily. Blood-Glucose Meter [facility] Dispense 1 kit blood sugar diagnostic (BLOOD GLUCOSE TEST) test strip Test blood sugar(s) 2 xdaily. Dx: E11.22. Insulin: No Lancets lancets Test blood sugar(s) 2 x daily. Dx: E11.22. Insulin: No furosemide (LASIX) 40 mg tablet Take 1 tablet by mouth twice daily as needed. (Patient taking differently: Take 40 mg by mouth once daily. ) omeprazole (PRILOSEC) 20 mg capsule Take 1 capsule by mouth twice daily. (Patient not taking: Reported on 02/18/2021 ) No current facility-administered medications for this visit. REVIEW OF SYSTEMS General: No fatigue or fevers HEENT: Negative for frequent or significant headaches, No changes in hearing or vision, no nose bleeds or other nasal problems PAP Therapy: Using it nightly. GI:No nausea, vomiting, or diarrhea and No heartburn or reflux symptoms Muskuloskeletal: Negative for joint pain or swelling, back pain or muscle pain Skin: Negative for lesions, rash, and itching Psych: Negative for sleep disturbance, mood disorder and recent psychosocial stressors. Positive for memory loss PHYSICAL EXAMINATION Wt 140.2 kg (309 lb) BMI 53.04 kg/m2 Ht 162.6 cm (5' 4 ) BMI 53.04 kg/m2 GENERAL APPEARANCE: Pleasant, interacts appropriately and in no apparent distress. Appropriately groomed, happy, smiling, and interactive SKIN: Skin of normal texture, temperature without rashes/lesions/ulcerations. LUNGS: unlabored on room air negative findings: normal respiratory rate no cough NEURO/PSYCH: Oriented to person, place, time; appropriate insight and judgement. Appropriate affect. Diagnostic Tests Reviewed for Today's Visit Most recent lab and imaging results The plan of treatment for Paula Olson is Further Work-up: Required monthly visits: 3 of 6 months. Patient is interested in: Sleeve Gastrectomy EGD: defer to UGI Upper GI: WNL RUQ US: NAFLD, dilation of the CBD in setting of cholecystectomy, bilateral renal cyts < 3 cm Sleep Study: Sleep apnea, uses CPAP CXR:per pulmonary clearance EKG:per cardiac clearance H Pylori NA planned SG Labs: complete, elevated PTH (likely secondary to CKD), baseline elevated creatinine and decreased GFR A1C 7.1, scanned in Nicotine use <12 months: NA Antiplatelet/anticoagulants: Plavix (Clopidogrel) Immunosuppressive therapy: No Estrogen therapy: No Evaluations Psychology: ongoing - Recommending neuropsych testing for mild cognitive impairement and more frequent 1:1 RD visits Nutrition: ongoing Education class: ongoing Clearances: Cardiac (with recs on Plavix), Pulmonary, PCP and nephrology (low), neurology Risk Calculator: VTE Risk: OR time < 3 hours = 0.52% OR time > 3 hours = 0.81% COVID-19 Risk 3 ISS score: 110 - severe disease, LSG recommended Adverse Event score: 2.80% Post-op Medications: Extended Lovenox: Yes for either procedure Actigall: not needed, hx of cholecystectomy H2 geovnana/PPI: Will require ASSESSMENT/PLAN: 1. Class 3 severe obesity due to excess calories with serious comorbidity and body mass index (BMI) of 50.0 to 59.9 in adult (HCC) - ICD9: 278.01, V85.43, ICD10: E66.01, Z68.43 (primary diagnosis) Stable - Behavioral intervention and - Medical nutrition therapy with dietitian - Per MDT recommendations, patient will require more frequent one-on-one dietitian visits due to mild cognitive impairment. - Nutrition Counseling Practice these: - Eat 3 meals daily can use approved/recommended protein shake as 1 meal replacement (should be <200 calories, 20-30g protein, <5g added sugar) - Keep a food journal 5-7x/week (consider [employer] or [employer] jennifer) and demonstrate meeting protein goal (60-90g protein for females, 70-105g protein for males)- Lean meats, fish, low fat dairy - cottage cheese, Maori yogurt, light yogurt, cheese, ricotta cheese, nuts, peanut butter, beans/legumes. Eat protein first at all meals. and 64oz of caffeine-free, carbonation-free fluids at least 5 days per week - engage in formal, planned exercise 5x/week for 30 minutes of cardiovascular activity OR 150+ minutes of cardiovascular activity per week - eliminate all caffeine, carbonation, alcohol and sugar-containing beverages from diet consider sugar-free drink mixes, water, decaf coffee and tea - Separate eating and drinking by 30 minutes - Chew your food 20-30x per bite - Sip beverages slowly no guzzling or gulping 2. BATSHEVA on CPAP - ICD9: 327.23, V46.8, ICD10: G47.33, Z99.89 - Uses CPAP nightly - Requesting pulmonary clearance 3. ASCVD (arteriosclerotic cardiovascular disease) - ICD9: 429.2, 440.9, ICD10: I25.10 - Per pt, she needs ECHO done before obtaining clearance from washateria attendant - will need recs on plavix before and after surgery 4. Stage 3a chronic kidney disease (HCC) - ICD9: 585.3, ICD10: N18.31 - Received clearance from nephrology 5. Mild cognitive impairment - ICD9: 331.83, ICD10: G31.84 - Neuropsych testing scheduled 04/28. Patient was discussed at MDT due to concerns for mild cognitive impairment. She does have strong social support through her daughter, Isa, who helps with meal prepping and keeping a food journal. -Requesting clearance from neurology Still needs clearance from nutrition, psychology, cardiology, pulmonology, and neurology. Follow-up with RD in 4 weeks and PAY STATION DEPARTMENT MANAGER in 8 weeks. Martine Amin APRN.RODERICK Total time in direct patient contact = 24 min. Greater than 50% of the time was spent in counseling and/or coordination of care. This note was generated using voice recognition technology and may contain grammatical errors. documented in this encounter [facility] 03-05-2022 Miscellaneous Notes Paula Balderrama 1950 02/12 Tom and Tiffany Calle Concern: History of MCI on two memory medications. Strong family involvement; daughter naty RODRÍGUEZ both had bariatric surgery through our program. Recommend continued family involvement, receiving notes from neurologist, and having neuropsych eval for recommendations. Patient needs updated neuropsychology testing (04/28/22) and continued family support while going through surgical program. Patient would benefit from 1:1 RD visits monthly. documented in this encounter [facility] 03-04-2022 Note HNO ID: [id number] Author: RT Stalin(R) Service: Radiology Author Type: Technologist Type: Progress Notes Filed: 03/04/2022 9:11 AM Note Text: Radiology Service Progress Note PATIENT NAME: Paula Olson DATE OF SERVICE: March 04, 2022 TIME: 8:55 AM PATIENT IDENTITY VERIFICATION COMPLETED USING TWO (2) IDENTIFIERS: Name and Date of confirmed by patient verbally and Name and Date of confirmed by identification band. FALL SCREENING: Has the patient had 2 falls in the last year or 1 fall with injury or currently using an Ambulatory Assistive Device (Walker, Cane, Wheelchair, Crutches, etc.)? No PATIENT GENDER DATA: Female. status: : No status: NO. PATIENT RELEVANT IMPLANT DATA REVIEWED: Not Applicable RADIOLOGY DEPARTMENT: General X-ray: Exam(s) Completed: GI/ Procedure(s): Upper GI with barium contrast PERIPHERAL IV DATA: Not applicable SIGNED BY: RT Stalin(R) March 04, 2022 8:55 AM [facility] 03-04-2022 History of Present illness Narrative Radiology Service Progress Note PATIENT NAME: Paula Olson DATE OF SERVICE: March 04, 2022 TIME: 8:55 AM PATIENT IDENTITY VERIFICATION COMPLETED USING TWO (2) IDENTIFIERS: Name and Date of confirmed by patient verbally and Name and Date of confirmed by identification band. FALL SCREENING: Has the patient had 2 falls in the last year or 1 fall with injury or currently using an Ambulatory Assistive Device (Walker, Cane, Wheelchair, Crutches, etc.)? No PATIENT GENDER DATA: Female. status: : No status: NO. PATIENT RELEVANT IMPLANT DATA REVIEWED: Not Applicable RADIOLOGY DEPARTMENT: General X-ray: Exam(s) Completed: GI/ Procedure(s): Upper GI with barium contrast PERIPHERAL IV DATA: Not applicable SIGNED BY: RT Stalin(R) March 04, 2022 8:55 AM documented in this encounter [facility] 02-12-2022 Note Education (AGGENS4) ---- PAULA OLSON ([id number]) 1950 F Date Time Provider Department 02/12/22 11:30 AM TIFFANY ESCOBEDO4 Reason for Visit: Established Patient [175] Primary Visit Diagnosis:Class 3 severe obesity due to excess calories with serious comorbidity and body mass index (BMI) of 50.0 to 59.9 in adult ([facility]) [E66.01, Z68.43] During your visit today, we recorded the following information about you: Weight Height 140.2 kg 1.626 m Allergies As of Date: 02/12/2022 Noted Allergy Reaction NAPROXYN (NAPROXEN) 11/26/2008 10 [...] NEOMYCIN 07/22/2005 ORUVAIL (KETOPROFEN) 07/22/2005 SEPTRA (SULFAMETHOXAZOLE-TRIMETHO*07/22/2005 [id number]-[id number] REDUCTASE INHIBIT*06/10/2014 14 - Other: See Comments Comments: myalgia TRANXENE-SD (CLORAZEPATE DIPOTASS*07/22/2005 Comments: unknown ZANTAC (RANITIDINE HCL) 07/22/2005 ZETIA (EZETIMIBE) 07/22/2005 Comments: Joint Stiffness ZOLOFT (SERTRALINE HCL) 07/22/2005 Comments: unknown Date Reviewed: 02/12/2022 Reviewed by: Sandra Calle MD - Fully Assessed Prescriptions as of 03/08/2022 - metoprolol tartrate, short acting, (LOPRESSOR) 25 mg tablet Take 25 mg by mouth twice daily. - repaglinide (PRANDIN) 2 mg tablet Take by mouth three times daily before meals. - memantine (NAMENDA) 10 mg tablet Take 10 mg by mouth once daily. - clopidogrel (PLAVIX) 75 mg tablet clopidogrel 75 mg tablet - donepezil (ARICEPT) 10 mg tablet 5 mg once daily. Takes in am - allopurinol (ZYLOPRIM) 100 mg tablet Take 1 tablet by mouth once daily. - lisinopril (ZESTRIL, PRINIVIL) 20 mg tablet Take 1 tablet by mouth once daily. - citalopram (CELEXA) 20 mg tablet Take 1 tablet by mouth twice daily. - Blood-Glucose Meter [facility] Dispense 1 kit - blood sugar diagnostic (BLOOD GLUCOSE TEST) test strip Test blood sugar(s) 2 xdaily. Dx: E11.22. Insulin: No - Lancets lancets Test blood sugar(s) 2 x daily. Dx: E11.22. Insulin: No - omeprazole (PRILOSEC) 20 mg capsule Take 1 capsule by mouth twice daily. - furosemide (LASIX) 40 mg tablet Take 1 tablet by mouth twice daily as needed. Follow-up and Disposition History for Encounter Date Provider Department Center 02/12/2022 [id number], LINDSEY AGGENS4 [facility] Encounter Status:Closed by TIFFANY ESCOBEDO on 02/12/22 [facility] 02-12-2022 Note HNO ID: [id number] Author: Tiffany Escobedo RD Service: ? Author Type: Registered Dietitian Type: Progress Notes Filed: 03/08/2022 2:31 PM Note Text: Paula Olson Patient seen in office for visit. Pre-Op weight goal: 293 lbs Education Class: Patient will receive instruction regarding healthy food choices and eating behaviors identified as optimal when preparing for surgery, losing weight after surgery, and maintaining weight loss long-term. Patient will also receive instruction regarding the Bariatric Full Liquid diet following surgery and optimal post-operative high-protein supplement choices. Education class to be completed prior to surgery. Behaviors Accomplished: Visit # 2 Date: 02/12/22 Weight: 309 lbs Weight goal met: No, 16# above GW Behaviors that helped/hindered weight loss: helped Daily multivitamin No high fat/fast foods Hindered: Limited physical activity Not currently keeping a food journal Not tracking protein/fluid intake Endorsing in caffeine 24 hr recall: B: coffee L: vegetable soup D: vegetable soup S: peanut butter crackers Protein intake: not tracking at this time Fluid intake: unsure - does drink a lot of water daily (from 32 oz tumbler) Exercise: none -- does have physical limitations, recommended chair exercises Caffeine: yes per recall -- down to 1/2 caf -- advised to eliminate Carbonation: none Alcohol: none Dining out: 1x every other week Per PAY STATION DEPARTMENT MANAGER note 01/08/22: Currently diagnosed as CKD stage III?she does follow with nephrology. There is mention of possible CHF diagnosis but patient is a poor historian--she is followed by cardiology Will need altered protein needs due to CKD stage III. Adjusted protein goals for patient is 60 g/day. Patient presents for nutrition follow-up today month 2 / 6 of supervised diet and exercise. Verbalized that she is not giving food journal at this time, provided patient with food journals from office and instructed on how to use. Reviewed how to calculate protein by hand as well. Patient's daughter was also at appointment today and has gone through our bariatric program, she is familiar with our guidelines. Per 24-hour recall unsure of meeting protein and fluid goals. Patient currently not tracking at this time. Reviewed protein goals with patient, has history of CKD stage III therefore her protein intake will be no more than 60 g/day per our protocol. Gave patient a range between 55 and 60 g/day. Also advised on fluid goals, she does drink from a 32 ounce tumbler, encouraged to refill twice to meet goals. Per patient daughter and patient she is not following any fluid restriction per nephrology or cardiology at this time. Not endorse any formal exercise at this time. Patient does have physical limitations that impair exercise. Gave patient a copy of chair exercises to do at home, instructed to work up to 5 times a week for 30 minutes of which she is able to tolerate. Per patient reports she is taking a Flintstones chewable multivitamin daily. Is also endorsing caffeine, is working toward eliminating she is now drinking only half caffeinated coffee in the morning. The patient meets NIH guidelines for weight loss surgery and has been thoroughly evaluated and educated on good dietary practices. Patient is capable of following these guidelines pre-and post-surgically. From nutrition standpoint, the has partially met nutrition clearance and will need to demonstrate use food journal 5-7x/week, track/calculate protein intake to reach 55-60g protein daily, increase fluid intake to 64 oz daily, eliminate caffeine completely, and increase exercise to 5x/week for 30 min (as tolerated -- CHAIR EXERCISES) to receive nutrition clearance. Plan: follow up with RD in 1 month Goals - Eat 3 meals every day - eliminate caffiene completely - formal exercise 5-7x/week, as tolerated, goal of 30 minutes (chair exercises) - increase fluid intake to 64 oz - journal daily and bring to all appointments - track and calculate protein intake to reach 55-60g/daily I spent 25 minutes in the visit, with more than 50% of the total [id number]-[id number] time of the visit in counseling / coordination of care. Tiffany Escobedo RD This note was generated using voice recognition technology and may contain grammatical errors. [facility] 02-12-2022 History of Present illness Narrative Paula Olson This patient encounter was completed virtually using a secure, HIPPA compliant video chat software program with the patient's consent. Pre-Op weight goal: 293 lbs Education Class: Patient will receive instruction regarding healthy food choices and eating behaviors identified as optimal when preparing for surgery, losing weight after surgery, and maintaining weight loss long-term. Patient will also receive instruction regarding the Bariatric Full Liquid diet following surgery and optimal post-operative high-protein supplement choices. Education class to be completed prior to surgery. Behaviors Accomplished: Visit # 2/6 Date: 02/12/22 Weight: 309 lbs Weight goal met: No, 16# above GW Behaviors that helped/hindered weight loss: helped Daily multivitamin No high fat/fast foods Hindered: Limited physical activity Not currently keeping a food journal Not tracking protein/fluid intake Endorsing in caffeine 24 hr recall: B: coffee L: vegetable soup D: vegetable soup S: peanut butter crackers Protein intake: not tracking at this time Fluid intake: unsure - does drink a lot of water daily (from 32 oz tumbler) Exercise: none -- does have physical limitations, recommended chair exercises Caffeine: yes per recall -- down to 09/20 caf -- advised to eliminate Carbonation: none Alcohol: none Dining out: 1x every other week Per PAY STATION DEPARTMENT MANAGER note 01/08/22: Currently diagnosed as CKD stage III she does follow with nephrology. There is mention of possible CHF diagnosis but patient is a poor historian--she is followed by cardiology Will need altered protein needs due to CKD stage III. Adjusted protein goals for patient is 60 g/day. Patient presents for nutrition follow-up today month 2 / 6 of supervised diet and exercise. Verbalized that she is not giving food journal at this time, provided patient with food journals from office and instructed on how to use. Reviewed how to calculate protein by hand as well. Patient's daughter was also at appointment today and has gone through our bariatric program, she is familiar with our guidelines. Per 24-hour recall unsure of meeting protein and fluid goals. Patient currently not tracking at this time. Reviewed protein goals with patient, has history of CKD stage III therefore her protein intake will be no more than 60 g/day per our protocol. Gave patient a range between 55 and 60 g/day. Also advised on fluid goals, she does drink from a 32 ounce tumbler, encouraged to refill twice to meet goals. Per patient daughter and patient she is not following any fluid restriction per nephrology or cardiology at this time. Not endorse any formal exercise at this time. Patient does have physical limitations that impair exercise. Gave patient a copy of chair exercises to do at home, instructed to work up to 5 times a week for 30 minutes of which she is able to tolerate. Per patient reports she is taking a Flintstones chewable multivitamin daily. Is also endorsing caffeine, is working toward eliminating she is now drinking only half caffeinated coffee in the morning. The patient meets NIH guidelines for weight loss surgery and has been thoroughly evaluated and educated on good dietary practices. Patient is capable of following these guidelines pre-and post-surgically. From nutrition standpoint, the has partially met nutrition clearance and will need to demonstrate use food journal 5-7x/week, track/calculate protein intake to reach 55-60g protein daily, increase fluid intake to 64 oz daily, eliminate caffeine completely, and increase exercise to 5x/week for 30 min (as tolerated -- CHAIR EXERCISES) to receive nutrition clearance. Plan: follow up with RD in 1 month Goals Eat 3 meals every day eliminate caffiene completely formal exercise 5-7x/week, as tolerated, goal of 30 minutes (chair exercises) increase fluid intake to 64 oz journal daily and bring to all appointments track and calculate protein intake to reach 55-60g/daily I spent 25 minutes in the visit, with more than 50% of the total dcpb-sb-znhp time of the visit in counseling / coordination of care. Tiffany Escobedo RD This note was generated using voice recognition technology and may contain grammatical errors. documented in this encounter [facility] 02-12-2022 Note HNO ID: [id number] Author: Sandra Calle MD Service: ? Author Type: Physician Type: Progress Notes Filed: 02/12/2022 9:39 AM Note Text: BARIATRIC SURGERY NEW PATIENT CONSULTATION HISTORY AND PHYSICAL Date: February 12, 2022 Time: 9:09 AM Paula Olson is a 71 year old year old female with obesity (Body mass index is 53.04 kg/m?.), depression/anxiety (Celexa, wellbutrin; well managed), memory loss (Namenda, Aricept), type 2 DM (A1C 7.1, repaglinide, no insulin, follows endocrinology) complicated by CKD stage 3 and neuropathy, gout (allopurinol, never required PO steroids), HTN (metoprolol, lisinopril), HLD, ASCVD, NM (+ stent placement, Plavix), BATSHEVA on CPAP, NAFLD, LE edema (PRN Lasix), and chronic joint pain (tylenol) who presents to the clinic today for consideration of bariatric surgery. This patient has struggled with weight related concerns for most of their life - including childhood. They have attempted weight loss with diet and exercise programs without jail success - the most lost independently was 20-30 pounds and ultimately would regain. The heaviest adult weight they can recall was 309 pounds, which is her weight today and the healthiest adult weight they can recall was 150 pounds. Her daughter Isa had surgery in our program and has had great success. Her son in law is in the program as well. She has a history of T2DM diagnosed in 1992. She has mild LE neuropathy and nephropathy - CKD stage 3. She follows with endocrinology and is now on Repaglinide - she used to be on Lantus. She has BATSHEVA for which she uses CPAP nightly. Cardiac history is significant for HTN, HLD, ASCVD, previous NM with cardiac stent for which she is on plavix. Has LE edema occasionally for which she uses PRN Lasix. She had heartburn symptoms in the past, but lately she has had no symptoms and takes no medications aside from Tums a few a month. A few times a week she has loose stools. Social: she denies tobacco, etoh, or illicit drugs PSHx: appendectomy, CCx, UHR, sinus surgery, cataract, joint arthroscopy, cardiac stenting (2002) PAST MEDICAL HISTORY Diagnosis Date - Acute gastritis without mention of hemorrhage - Allergic rhinitis, cause unspecified Allergic rhinitis - ASCVD (arteriosclerotic cardiovascular disease) 02/17/2003 - Benign neoplasm of colon 09/03/2005 - CKD (chronic kidney disease) stage 3, GFR 30-59 ml/min ([facility]) 06/01/2016 Dr. Chairez, nephrology - Depressive disorder, not elsewhere classified 12/13/2008 - Diabetes ([facility]) 08/19/1993 diagnosed. - DM type 2 causing CKD stage 4 ([facility]) 09/09/2014 - GERD (gastroesophageal reflux disease) 12/01/2010 - Gout involving toe 11/23/2016 - Hyperlipidemia 06/30/2015 - Hypertension 08/19/19993 - NM (myocardial infarction) ([facility]) - Morbid obesity ([facility]) - BATSHEVA on CPAP - Postmenopausal atrophic vaginitis 05/15/2012 - Renal failure - Snoring - Trigeminal nerve disorder, unspecified - Umbilical hernia without mention of obstruction or gangrene - Vitamin D deficiency 04/09/2010 PAST SURGICAL HISTORY Procedure Laterality Date - APPENDECTOMY 1970 - CHOLECYSTECTOMY 1970 Cholecystectomy - COLONOSCOPY FLX DX W/COLLJ SPEC WHEN PFRMD 09/03/05 Colonoscopy - COLONOSCOPY FLX DX W/COLLJ SPEC WHEN PFRMD 03/06/15 Colonoscopy - EGD TRANSORAL BIOPSY SINGLE/MULTIPLE 11/16/2008 - EGD TRANSORAL BIOPSY SINGLE/MULTIPLE 12/01/10 - ESOPHAGOGASTRODUODENOSCOPY TRANSORAL DIAGNOSTIC 03/06/15 EGD - HEART SURGERY HX Heart Stent - LEFT HEART CATH,PERCUTANEOUS 02/2003 moderate CAD - PAST SURGICAL HISTORY OF Right 07/24/2015 Arthroscopy of Right Shoulder with Synovectomy, debridement of glenohumeral joint, biceps tenotomy, acromioplasty and distal claviculectomy - RPR UMBILICAL HRNA 5 YRS/> REDUCIBLE 01/22/08 - SINUS SURGERY PROC UNLISTED 04/10/1999 - XCAPSL CTRC RMVL INSJ IO LENS PROSTH W/O ECP 03/30/2013 Cataract Extraction with PC IOL Dr Tolentino [facility] - XCAPSL CTRC RMVL INSJ IO LENS PROSTH W/O ECP 04/20/2013 Cataract Extraction with PC IOL Dr Tolentino left eye FAMILY HISTORY Problem Relation Age of Onset - Diabetes Mother - Heart Mother - Hypertension Mother - Lipids Mother - Diabetes Maternal Aunt x 2 Social History Tobacco Use - Smoking status: Never Smoker - Smokeless tobacco: Never Used Substance Use Topics - Alcohol use: No - Drug use: No Current Outpatient Medications Medication Sig - metoprolol tartrate, short acting, (LOPRESSOR) 25 mg tablet Take 25 mg by mouth twice daily. - repaglinide (PRANDIN) 2 mg tablet Take by mouth three times daily before meals. - memantine (NAMENDA) 10 mg tablet Take 10 mg by mouth once daily. - clopidogrel (PLAVIX) 75 mg tablet clopidogrel 75 mg tablet - donepezil (ARICEPT) 10 mg tablet 5 mg once daily. Takes in am - allopurinol (ZYLOPRIM) 100 mg tablet Take 1 tablet by mouth once daily. (Patient taking differently: Take 100 mg by mouth twice d (more content not included)... [facility] 02-12-2022 Note HNO ID: [id number] Author: Martine Amin APRN.GIFT SHOP MANAGER Service: ? Author Type: Nurse Practitioner Type: Progress Notes Filed: 02/12/2022 9:39 AM Note Text: - Daughter, Isa, had surgery with Dr. Tran. Son-in-law currently in the bariatric program as well. PMH: + T2DM (A1C 7.1, repaglinide, no insulin, follows endocrinology) + CKD III + BATSHEVA (CPAP) + HTN (metoprolol, lisinopril), HLD, ASCVD, NM (+ stent placement, Plavix) + LE edema (PRN Lasix) (no mention of CHF in cardio notes) + Previous heartburn but no longer taking PPI, well controlled + Joint pain (tylenol, denies NSAIDs) + Gout (allopurinol, never required PO steroids) + Depression (Celexa, wellbutrin), memory loss (Namenda, Aricept) Required monthly visits: 2 of 6 months. Patient is interested in: Sleeve Gastrectomy EGD:?surgeon Upper GI:??surgeon RUQ US: NAFLD, dilation of the CBD in setting of cholecystectomy, bilateral renal cyts < 3 cm Sleep Study: Sleep apnea, uses CPAP CXR:per pulmonary clearance EKG:per cardiac clearance H Pylori pending Labs: complete, elevated PTH (likely secondary to CKD), baseline elevated creatinine and decreased GFR A1C 7.1, scanned in Nicotine use <12 months: NA ? Antiplatelet/anticoagulants: Plavix (Clopidogrel) Immunosuppressive therapy: No Estrogen therapy: No ? ? Evaluations? Psychology:?ongoing? - Recommending neuropsych testing for mild cognitive impairement and more frequent 1:1 RD visits ? Nutrition:?ongoing? Education class: ongoing??? Clearances: Cardiac (with recs on Plavix), Pulmonary, PCP and nephrology (low)? ? Risk Calculator: ? VTE Risk: ?OR time < 3 hours = 0.52% OR time > 3 hours = 0.81% COVID-19 Risk 3 ISS score: 110 - severe disease, LSG recommended Adverse Event score: 2.80% ? Post-op Medications: Extended Lovenox: Yes for either procedure Actigall: not needed, hx of cholecystectomy H2 geovanna/PPI: Will require Martine Amin, PRESIDENT AND CHIEF COMMERCIAL OFFICER.GIFT SHOP MANAGER ? [facility] 02-12-2022 History of Present illness Narrative Images from the original note were not included. BARIATRIC SURGERY NEW PATIENT CONSULTATION HISTORY AND PHYSICAL Date: February 12, 2022 Time: 9:09 AM Paula Olson is a 71 year old year old female with obesity (Body mass index is 53.04 kg/m .), depression/anxiety (Celexa, wellbutrin; well managed), memory loss (Namenda, Aricept), type 2 DM (A1C 7.1, repaglinide, no insulin, follows endocrinology) complicated by CKD stage 3 and neuropathy, gout (allopurinol, never required PO steroids), HTN (metoprolol, lisinopril), HLD, ASCVD, NM (+ stent placement, Plavix), BATSHEVA on CPAP, NAFLD, LE edema (PRN Lasix), and chronic joint pain (tylenol) who presents to the clinic today for consideration of bariatric surgery. This patient has struggled with weight related concerns for most of their life - including childhood. They have attempted weight loss with diet and exercise programs without jail success - the most lost independently was 20-30 pounds and ultimately would regain. The heaviest adult weight they can recall was 309 pounds, which is her weight today and the healthiest adult weight they can recall was 150 pounds. Her daughter Isa had surgery in our program and has had great success. Her son in law is in the program as well. She has a history of T2DM diagnosed in 1992. She has mild LE neuropathy and nephropathy - CKD stage 3. She follows with endocrinology and is now on Repaglinide - she used to be on Lantus. She has BATSHEVA for which she uses CPAP nightly. Cardiac history is significant for HTN, HLD, ASCVD, previous NM with cardiac stent for which she is on plavix. Has LE edema occasionally for which she uses PRN Lasix. She had heartburn symptoms in the past, but lately she has had no symptoms and takes no medications aside from Tums a few a month. A few times a week she has loose stools. Social: she denies tobacco, etoh, or illicit drugs PSHx: appendectomy, CCx, UHR, sinus surgery, cataract, joint arthroscopy, cardiac stenting (2002) PAST MEDICAL HISTORY Diagnosis Date Acute gastritis without mention of hemorrhage Allergic rhinitis, cause unspecified Allergic rhinitis ASCVD (arteriosclerotic cardiovascular disease) 02/17/2003 Benign neoplasm of colon 09/03/2005 CKD (chronic kidney disease) stage 3, GFR 30-59 ml/min ([facility]) 06/01/2016 Dr. Chairez, nephrology Depressive disorder, not elsewhere classified 12/13/2008 Diabetes ([facility]) 08/19/1993 diagnosed. DM type 2 causing CKD stage 4 ([facility]) 09/09/2014 GERD (gastroesophageal reflux disease) 12/01/2010 Gout involving toe 11/23/2016 Hyperlipidemia 06/30/2015 Hypertension 08/19/19993 NM (myocardial infarction) ([facility]) Morbid obesity ([facility]) BATSHEVA on CPAP Postmenopausal atrophic vaginitis 05/15/2012 Renal failure Snoring Trigeminal nerve disorder, unspecified Umbilical hernia without mention of obstruction or gangrene Vitamin D deficiency 04/09/2010 PAST SURGICAL HISTORY Procedure Laterality Date APPENDECTOMY 1971 CHOLECYSTECTOMY 1970 Cholecystectomy COLONOSCOPY FLX DX W/COLLJ SPEC WHEN PFRMD 09/03/05 Colonoscopy COLONOSCOPY FLX DX W/COLLJ SPEC WHEN PFRMD 03/06/15 Colonoscopy EGD TRANSORAL BIOPSY SINGLE/MULTIPLE 11/16/2008 EGD TRANSORAL BIOPSY SINGLE/MULTIPLE 12/01/10 ESOPHAGOGASTRODUODENOSCOPY TRANSORAL DIAGNOSTIC 03/06/15 EGD HEART SURGERY HX Heart Stent LEFT HEART CATH,PERCUTANEOUS 02/2003 moderate CAD PAST SURGICAL HISTORY OF Right 07/24/2015 Arthroscopy of Right Shoulder with Synovectomy, debridement of glenohumeral joint, biceps tenotomy, acromioplasty and distal claviculectomy RPR UMBILICAL HRNA 5 YRS/> REDUCIBLE 01/22/08 SINUS SURGERY PROC UNLISTED 04/10/1999 XCAPSL CTRC RMVL INSJ IO LENS PROSTH W/O ECP 03/30/2013 Cataract Extraction with PC IOL Dr Tolentino [facility] XCAPSL CTRC RMVL INSJ IO LENS PROSTH W/O ECP 04/20/2013 Cataract Extraction with PC IOL Dr Tolentino left eye FAMILY HISTORY Problem Relation Age of Onset Diabetes Mother Heart Mother Hypertension Mother Lipids Mother Diabetes Maternal Aunt x 2 Social History Tobacco Use Smoking status: Never Smoker Smokeless tobacco: Never Used Substance Use Topics Alcohol use: No Drug use: No Current Outpatient Medications Medication Sig metoprolol tartrate, short acting, (LOPRESSOR) 25 mg tablet Take 25 mg by mouth twice daily. repaglinide (PRANDIN) 2 mg tablet Take by mouth three times daily before meals. memantine (NAMENDA) 10 mg tablet Take 10 mg by mouth once daily. clopidogrel (PLAVIX) 75 mg tablet clopidogrel 75 mg tablet donepezil (ARICEPT) 10 mg tablet 5 mg once daily. Takes in am allopurinol (ZYLOPRIM) 100 mg tablet Take 1 tablet by mouth once daily. (Patient taking differently: Take 100 mg by mouth twice daily. ) lisinopril (ZESTRIL, PRINIVIL) 20 mg tablet Take 1 tablet by mouth once daily. citalopram (CELEXA) 20 mg tablet Take 1 tablet by mouth twice daily. Blood-Glucose Meter [facility] Dispense 1 kit blood sugar diagnostic (BLOOD GLUCOSE TEST) test strip Test blood sugar(s) 2 xdaily. Dx: E11.22. Insulin: No Lancets lancets Test blood sugar(s) 2 x daily. Dx: E11.22. Insulin: No furosemide (LASIX) 40 mg tablet Take 1 tablet by mouth twice daily as needed. (Patient taking differently: Take 40 mg by mouth once daily. ) omeprazole (PRILOSEC) 20 mg capsule Take 1 capsule by mouth twice daily. (Patient not taking: Reported on 02/18/2021 ) No current facility-administered medications for this visit. ALLERGIES Allergen Reactions Naproxyn [Naproxen] Anaphylaxis given at the same time as prednisone, cannot take together. Had internal bleeding. Prednisone Cannot be given with Naproxy, had severe internal bleeding was hospitalized. Augmentin [Amoxicil* GI Upset Possibly GI. Can tolerate PCN and Amoxicillin Axid [Nizatidine] Byetta [Exenatide] GI Upset chronic abdominal pain, possibly low level pancreatitis? Crestor [Rosuvastat* Muscle cramps Flonase [Fluticason* headaches Indocin [Indomethac* Mobic [Meloxicam] Other: See Comments Problems with kidneys Naldecon Senior Ex * Neomycin Oruvail [Ketoprofen] Septra [Sulfamethox* Ygxpasn-Ban-Cie Red* Other: See Comments myalgia Tranxene-Sd [Cloraz* unknown Zantac [Ranitidine * Zetia [Ezetimibe] Joint Stiffness Zoloft [Sertraline * unknown Review of Systems Constitutional: Negative for chills, diaphoresis, fever and malaise/fatigue. HENT: Negative for congestion, hearing loss, nosebleeds, sinus pain, sore throat and tinnitus. Eyes: Negative for blurred vision, double vision, pain and redness. Respiratory: Negative for cough, hemoptysis, sputum production, shortness of breath and wheezing. Cardiovascular: Positive for leg swelling. Negative for chest pain, palpitations, orthopnea and PND. Gastrointestinal: Positive for diarrhea. Negative for abdominal pain, blood in stool, constipation, heartburn, nausea and vomiting. Genitourinary: Negative for dysuria, frequency, hematuria and urgency. Musculoskeletal: Positive for joint pain. Negative for back pain, falls, myalgias and neck pain. Skin: Negative for itching and rash. Neurological: Negative for dizziness, speech change, focal weakness, seizures, loss of consciousness, weakness and headaches. Endo/Heme/Allergies: Does not bruise/bleed easily. Psychiatric/Behavioral: Positive for depression. Negative for hallucinations, memory loss, substance abuse and suicidal ideas. The patient is nervous/anxious. The patient does not have insomnia. Physical Exam Vitals reviewed. Constitutional: Appearance: Normal appearance. She is obese. HENT: Head: Normocephalic and atraumatic. Nose: Nose normal. Eyes: General: No scleral icterus. Extraocular Movements: Extraocular movements intact. Conjunctiva/sclera: Conjunctivae normal. Pupils: Pupils are equal, round, and reactive to light. Cardiovascular: Rate and Rhythm: Normal rate. Pulmonary: Effort: Pulmonary effort is normal. No respiratory distress. Abdominal: Skin: General: Skin is warm and dry. Coloration: Skin is not jaundiced or pale. Neurological: General: No focal deficit present. Mental Status: She is alert and oriented to person, place, and time. Required monthly visits: 2 of 6 months. Patient is interested in: Sleeve Gastrectomy EGD: defer to UGI Upper GI: surgeon NACHO US: NAFLD, dilation of the CBD in setting of cholecystectomy, bilateral renal cyts < 3 cm Sleep Study: Sleep apnea, uses CPAP CXR:per pulmonary clearance EKG:per cardiac clearance H Pylori pending Labs: complete, elevated PTH (likely secondary to CKD), baseline elevated creatinine and decreased GFR A1C 7.1, scanned in Nicotine use <12 months: NA Antiplatelet/anticoagulants: Plavix (Clopidogrel) Immunosuppressive therapy: No Estrogen therapy: No Evaluations Psychology: ongoing - Recommending neuropsych testing for mild cognitive impairement and more frequent 1:1 RD visits Nutrition: ongoing Education class: ongoing Clearances: Cardiac (with recs on Plavix), Pulmonary, PCP and nephrology (low) Risk Calculator: VTE Risk: OR time < 3 hours = 0.52% OR time > 3 hours = 0.81% COVID-19 Risk 3 ISS score: 110 - severe disease, LSG recommended Adverse Event score: 2.80% Post-op Medications: Extended Lovenox: Yes for either procedure Actigall: not needed, hx of cholecystectomy H2 geovanna/PPI: Will require Plan IMPRESSION: Paula Olson is a 71 year old year old female who presents for consideration of bariatric surgery (Body mass index is 53.04 kg/m .). She does meet the criteria for a surgical weight loss procedure according to NIH guidelines. The plan of treatment for Paula is to continue with the consultations and tests ordered today in hopes of qualifying for pre-operative clearance for bariatric surgery. She is interested in: Sleeve gastrectomy ASSESSMENT/PLAN: 1. Class 3 severe obesity due to excess calories with serious comorbidity and body mass index (BMI) of 50.0 to 59.9 in adult ([facility]) - ICD9: 278.01, V85.43, ICD10: E66.01, Z68.43 (primary diagnosis) - Today we discussed the bariatric surgical options available to her. We discussed the risks and benefits associated with both the sleeve gastrectomy and moses-en-y gastric bypass. At this time she is open to either procedure, but is most interested in the LSG. I believe this is a good option for her due to her other medical comorbid conditions. I am most concerned about her past history of GERD, but she states she no longer has symptoms and takes no medications. We discussed dietary changes. - XR UPPER GI ROUTINE DOUBLE CONTRAST/AIR 2. BATSHEVA on CPAP - ICD9: 327.23, V46.8, ICD10: G47.33, Z99.89 - continue nightly CPAP use 3. NAFLD (nonalcoholic fatty liver disease) - ICD9: 571.8, ICD10: K76.0 4. Type 2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with other specified complication, with long-term current use of insulin (HCC) - ICD9: 250.80, V58.67, ICD10: E11.69, Z79.4 - Continue medical management Nutrition Counseling Practice these: - Eat 3 meals daily can use approved/recommended protein shake as 1 meal replacement (should be <200 calories, 20-30g protein, <5g added sugar) - Keep a food journal 5-7x/week (consider [employer] or [employer]) and demonstrate meeting protein goal (60-90g protein for females, 70-105g protein for males)- Lean meats, fish, low fat dairy - cottage cheese, Maori yogurt, light yogurt, cheese, ricotta cheese, nuts, peanut butter, beans/legumes. Eat protein first at all meals. and 64oz of caffeine-free, carbonation-free fluids at least 5 days per week - engage in formal, planned exercise 5x/week for 30 minutes of cardiovascular activity OR 150+ minutes of cardiovascular activity per week - eliminate all caffeine, carbonation, alcohol and sugar-containing beverages from diet consider sugar-free drink mixes, water, decaf coffee and tea - Separate eating and drinking by 30 minutes - Chew your food 20-30x per bite - Sip beverages slowly no guzzling or gulping Information regarding probable and potential postoperative complications, dietary and medical postoperative limitations, and potential cosmetic sequelae has been received by individual. Sandra Calle MD Advanced Laparoscopic and Bariatric Surgery Medical Decision Making: Problems: Moderate: 2+ stable chronic illnesses Data: Unique source(s) for external note(s) reviewed: 2 Unique test result(s) reviewed: 2 Unique test(s) ordered: 1 Discussed management or test w/ external physician/QHCP/source Risk: High: Decision on elective major surgery w/ risk factors Medical Decision Making Level: 5 - High - Daughter, Isa, had surgery with Dr. Tran. Son-in-law currently in the bariatric program as well. PMH: + T2DM (A1C 7.1, repaglinide, no insulin, follows endocrinology) + CKD III + BATSHEVA (CPAP) + HTN (metoprolol, lisinopril), HLD, ASCVD, NM (+ stent placement, Plavix) + LE edema (PRN Lasix) (no mention of CHF in cardio notes) + Previous heartburn but no longer taking PPI, well controlled + Joint pain (tylenol, denies NSAIDs) + Gout (allopurinol, never required PO steroids) + Depression (Celexa, wellbutrin), memory loss (Namenda, Aricept) Required monthly visits: 2 of 6 months. Patient is interested in: Sleeve Gastrectomy EGD: surgeon Upper GI: surgeon NACHO US: NAFLD, dilation of the CBD in setting of cholecystectomy, bilateral renal cyts < 3 cm Sleep Study: Sleep apnea, uses CPAP CXR:per pulmonary clearance EKG:per cardiac clearance H Pylori pending Labs: complete, elevated PTH (likely secondary to CKD), baseline elevated creatinine and decreased GFR A1C 7.1, scanned in Nicotine use <12 months: NA Antiplatelet/anticoagulants: Plavix (Clopidogrel) Immunosuppressive therapy: No Estrogen therapy: No Evaluations Psychology: ongoing - Recommending neuropsych testing for mild cognitive impairement and more frequent 1:1 RD visits Nutrition: ongoing Education class: ongoing Clearances: Cardiac (with recs on Plavix), Pulmonary, PCP and nephrology (low) Risk Calculator: VTE Risk: OR time < 3 hours = 0.52% OR time > 3 hours = 0.81% COVID-19 Risk 3 ISS score: 110 - severe disease, LSG recommended Adverse Event score: 2.80% Post-op Medications: Extended Lovenox: Yes for either procedure Actigall: not needed, hx of cholecystectomy H2 geovanna/PPI: Will require Martine Amin APRN.CNP documented in this encounter [facility] 02-05-2022 Note HNO ID: [id number] Author: Jacque Balderrama, PhD Service: ? Author Type: Psychologist Type: Progress Notes Filed: 02/05/2022 3:57 PM Note Text: Jacque Balderrama, Ph.D., Clinical Psychologist [facility] [address] [facility], [address] [place] [address] BARIATRIC SURGERY BEHAVIORAL HEALTH EVALUATION DATE OF SERVICE: February 05, 2022 TIME OF SERVICE: 1:00pm to 2:30pm [facility]: [facility] CPT CODE: 07551 Psychiatric diagnostic evaluation 01771 Interactive complexity add on code. Reasoning: patient presented with history of MCI and had her daughter present for support with history; this required additional time for evaluation BILLING CODE: Tacos CHIEF COMPLAINT: Pre-surgical psychological evaluation DATE OF FIRST SERVICE THIS CYCLE: February 05, 2022 SESSION #: 1 This appointment was conducted remotely via video virtual visit due to outbreak of COVID-19. Prior to initiating the appointment, patient identity was established using name and date of . Patient was encouraged to move to a quiet place free of distractions. Provided patient with number to call in case of disconnection ([phone]) and obtained alternate phone number from patient (n/a, patient requested call back on [phone]). She reported she was at the following location: home ([address] [place] [id number]) Patient identified the following plan to follow in case of emergency: Go to emergency room or call 911 Closest emergency room: [facility] Contact Information Primary Emergency Contact: Madina Carlson Address: [address] [place] [id number] [facility] Relation: Daughter Secondary Emergency Contact: WhitneyRobert Address: [address] [place] [id number] [place] [address] Mobile Relation: Spouse Patient agreed to distance mental health visit. The patient signed the Informed Consent for Psychological Evaluation AND Care Form, and the behavioral health care insurance benefits, fees for service, emergency procedures, and the limits of confidentiality that may pertain with any given case were discussed with the patient. Discussed additional risks that may apply to telepsychology and steps that are taken to minimize risk. Discussed strategies to use in case of service disruption or emergencies, as well as alternatives to distance visits. Ms. Olson was given a copy of the consent form. IDENTIFYING INFORMATION: Ms. Paula Olson is a 71 year old female. She was referred by Surgery. Ms. Olson is seeking gastric sleeve surgery for morbid obesity. Her surgeon is Dr. Calle. COLLATERAL PARTIES PRESENT: child. The patient has acknowledged understanding the purpose and/or need for the third libertarian to be present and the circumstances and extent to which confidential information may be disclosed to the third libertarian. The third libertarian verbalizes understanding that they are not a patient, there is no expectation of confidentiality between the provider and the third libertarian, and the third libertarian does not have rights to access any part of the patient's file without written authorization from the patient. . MOTIVATION FOR SURGERY / UNDERSTANDING OF PROCEDURE / EXPECTATIONS: Ms. Olson notes she is motivated for surgery by improved health and decreased medications. The patient has a limited understanding of the surgery, risks, and benefits; she does report understanding the overall surgical procedure and changes needed. She has talked with other people who have undergone the procedure (daughter and son-in-law). Specific areas of understanding that should be addressed include knowledge regarding surgical procedure. The patient has not attended a weight loss surgery support group. The patient expects to lose 80-100 lbs. following surgery over 12-18 months. Other expectations include increased energy, increased quality of life, and increased activity. Educated patient regarding expected weight loss after surgical procedure and timeline of weight loss/surgery recovery. CAPACITY TO CONSENT: Ms. Olson evidences the following concerns regarding capacity to consent: mild cognitive impairment (MCI). MEDICAL PROBLEMS ACTIVE PROBLEM LIST Ascvd (Arteriosclerotic Cardiovascular Disease) Batsheva On Cpap Benign Neoplasm of Colon Depressive Disorder, Not Elsewhere Classified Vitamin D Deficiency Gerd (Gastroesophageal Reflux Disease) Dm Type 2 Causing Ckd Stage 4 ([facility]) Bmi 50.0-59.9, Adult ([facility]) Hyperlipidemia Ckd (Chronic Kidney Disease) Stage 3, Gfr 30-59 Ml/Min (Hcc) Hypertension Gout Involving Toe PAST SURGICAL HISTORY Procedure Laterality Date - APPENDECTOMY 1970 - CHOLECYSTECTOMY 1970 Cholecystectomy - COLONOSCOPY FLX DX W/COLLJ SPEC WHEN PFRMD 09/03/05 Colonoscopy - COLONOSCOPY FLX DX (more content not included)... [facility] 02-05-2022 History of Present illness Narrative Images from the original note were not included. Jacque Balderrama, Ph.D., Clinical Psychologist [facility] [address] [facility], [address] [place] [address] BARIATRIC SURGERY BEHAVIORAL HEALTH EVALUATION DATE OF SERVICE: February 05, 2022 TIME OF SERVICE: 1:00pm to 2:30pm COST CENTER: [facility] CPT CODE: 60599 Psychiatric diagnostic evaluation 92556 Interactive complexity add on code. Reasoning: patient presented with history of MCI and had her daughter present for support with history; this required additional time for evaluation BILLING CODE: Tacos CHIEF COMPLAINT: Pre-surgical psychological evaluation DATE OF FIRST SERVICE THIS CYCLE: February 05, 2022 SESSION #: 1 This appointment was conducted remotely via video virtual visit due to outbreak of COVID-19. Prior to initiating the appointment, patient identity was established using name and date of . Patient was encouraged to move to a quiet place free of distractions. Provided patient with number to call in case of disconnection ([phone]) and obtained alternate phone number from patient (n/a, patient requested call back on [phone]). She reported she was at the following location: home ([address] [place] [address]) Patient identified the following plan to follow in case of emergency: Go to emergency room or call 911 Closest emergency room: [facility] Contact Information Primary Emergency Contact: Madina Carlson Address: [address] [place] [id number] [place] [address] [facility] Relation: Daughter Secondary Emergency Contact: Robert Olson Address: [address] [place] [id number] [place] [address] Mobile Relation: Spouse Patient agreed to distance mental health visit. The patient signed the Informed Consent for Psychological Evaluation & Care Form, and the behavioral health care insurance benefits, fees for service, emergency procedures, and the limits of confidentiality that may pertain with any given case were discussed with the patient. Discussed additional risks that may apply to telepsychology and steps that are taken to minimize risk. Discussed strategies to use in case of service disruption or emergencies, as well as alternatives to distance visits. Ms. Olson was given a copy of the consent form. IDENTIFYING INFORMATION: Ms. Paula Olson is a 71 year old female. She was referred by Surgery. Ms. Oslon is seeking gastric sleeve surgery for morbid obesity. Her surgeon is Dr. Calle. COLLATERAL PARTIES PRESENT: child. The patient has acknowledged understanding the purpose and/or need for the third libertarian to be present and the circumstances and extent to which confidential information may be disclosed to the third libertarian. The third libertarian verbalizes understanding that they are not a patient, there is no expectation of confidentiality between the provider and the third libertarian, and the third libertarian does not have rights to access any part of the patient's file without written authorization from the patient. . MOTIVATION FOR SURGERY / UNDERSTANDING OF PROCEDURE / EXPECTATIONS: Ms. Olson notes she is motivated for surgery by improved health and decreased medications. The patient has a limited understanding of the surgery, risks, and benefits; she does report understanding the overall surgical procedure and changes needed. She has talked with other people who have undergone the procedure (daughter and son-in-law). Specific areas of understanding that should be addressed include knowledge regarding surgical procedure. The patient has not attended a weight loss surgery support group. The patient expects to lose 80-100 lbs. following surgery over 12-18 months. Other expectations include increased energy, increased quality of life, and increased activity. Educated patient regarding expected weight loss after surgical procedure and timeline of weight loss/surgery recovery. CAPACITY TO CONSENT: Ms. Olson evidences the following concerns regarding capacity to consent: mild cognitive impairment (MCI). MEDICAL PROBLEMS ACTIVE PROBLEM LIST Ascvd (Arteriosclerotic Cardiovascular Disease) Batsheva On Cpap Benign Neoplasm of Colon Depressive Disorder, Not Elsewhere Classified Vitamin D Deficiency Gerd (Gastroesophageal Reflux Disease) Dm Type 2 Causing Ckd Stage 4 (Hcc) Bmi 50.0-59.9, Adult (Hcc) Hyperlipidemia Ckd (Chronic Kidney Disease) Stage 3, Gfr 30-59 Ml/Min (Hcc) Hypertension Gout Involving Toe PAST SURGICAL HISTORY Procedure Laterality Date APPENDECTOMY 1971 CHOLECYSTECTOMY 1970 Cholecystectomy COLONOSCOPY FLX DX W/COLLJ SPEC WHEN PFRMD 09/03/05 Colonoscopy COLONOSCOPY FLX DX W/COLLJ SPEC WHEN PFRMD 03/06/15 Colonoscopy EGD TRANSORAL BIOPSY SINGLE/MULTIPLE 11/16/2008 EGD TRANSORAL BIOPSY SINGLE/MULTIPLE 12/01/10 ESOPHAGOGASTRODUODENOSCOPY TRANSORAL DIAGNOSTIC 03/06/15 EGD HEART SURGERY HX Heart Stent LEFT HEART CATH,PERCUTANEOUS 02/2003 moderate CAD PAST SURGICAL HISTORY OF Right 07/24/2015 Arthroscopy of Right Shoulder with Synovectomy, debridement of glenohumeral joint, biceps tenotomy, acromioplasty and distal claviculectomy RPR UMBILICAL HRNA 5 YRS/> REDUCIBLE 01/22/08 SINUS SURGERY PROC UNLISTED 04/10/1999 XCAPSL CTRC RMVL INSJ IO LENS PROSTH W/O ECP 03/30/2013 Cataract Extraction with PC IOL Dr Tolentino [facility] XCAPSL CTRC RMVL INSJ IO LENS PROSTH W/O ECP 04/20/2013 Cataract Extraction with PC IOL Dr Tolentino left eye Past surgeries? Yes History of psychological complications post-surgery? No MEDICATIONS Current Outpatient Medications Medication Sig metoprolol tartrate, short acting, (LOPRESSOR) 25 mg tablet Take 25 mg by mouth twice daily. repaglinide (PRANDIN) 2 mg tablet Take by mouth three times daily before meals. memantine (NAMENDA) 10 mg tablet Take 10 mg by mouth once daily. polyethylene glycol 3350 (MIRALAX, GLYCOLAX) 17 gram/dose powder Use as directed for Miralax / Gatorade Bowel Prep Kit Gatorade Sports Drink Use as directed for Miralax / Gatorade Bowel Prep Kit Bisacodyl (DULCOLAX) 5 mg tab Use as directed for Miralax / Gatorade Bowel Prep Kit Mis Natural Product Nasal (PONARIS) soln Ponaris nasal solution TAKE 2 DROPS TWICE A DAY BY NASAL ROUTE FOR 30 DAYS. clopidogrel (PLAVIX) 75 mg tablet clopidogrel 75 mg tablet donepezil (ARICEPT) 10 mg tablet 5 mg once daily. Takes in am insulin glargine (LANTUS SOLOSTAR) 100 unit/mL (3 mL) inpn Inject 25 Units subcutaneously daily at bedtime. (Patient not taking: Reported on 02/18/2021 ) sitaGLIPtin (JANUVIA) 25 mg tablet Take 1 tablet by mouth once daily. (Patient not taking: Reported on 02/18/2021 ) allopurinol (ZYLOPRIM) 100 mg tablet Take 1 tablet by mouth once daily. (Patient taking differently: Take 100 mg by mouth twice daily. ) lisinopril (ZESTRIL, PRINIVIL) 20 mg tablet Take 1 tablet by mouth once daily. citalopram (CELEXA) 20 mg tablet Take 1 tablet by mouth twice daily. ergocalciferol, vitamin D2, (DRISDOL) 50,000 unit capsule Take 1 capsule every two weeks[address] Dr[address] Chairez (Patient not taking: Reported on 02/18/2021 ) verapamil (CALAN, ISOPTIN) 80 mg tablet Take 1 tablet by mouth three times daily. (Patient not taking: Reported on 02/18/2021 ) buPROPion SR (ZYBAN SR; WELLBUTRIN SR) 150 mg 12 hr tablet Take 1 tablet by mouth daily at bedtime. multivitamin tablet Take 1 tablet by mouth once daily. (Patient not taking: Reported on 02/18/2021 ) omega-3 fatty acids 1,000 mg cap Take 1 capsule by mouth once daily. (Patient not taking: Reported on 02/18/2021 ) Blood-Glucose Meter [facility] Dispense 1 kit blood sugar diagnostic (BLOOD GLUCOSE TEST) test strip Test blood sugar(s) 2 xdaily. Dx: E11.22. Insulin: No Lancets lancets Test blood sugar(s) 2 x daily. Dx: E11.22. Insulin: No omeprazole (PRILOSEC) 20 mg capsule Take 1 capsule by mouth twice daily. (Patient not taking: Reported on 02/18/2021 ) furosemide (LASIX) 40 mg tablet Take 1 tablet by mouth twice daily as needed. (Patient taking differently: Take 40 mg by mouth once daily. ) No current facility-administered medications for this visit. Namenda and Aricept prescribed for mild cognitive impairment. Wellbutrin prescribed for MCI/night eating.. ALLERGIES Allergen Reactions Naproxyn [Naproxen] Anaphylaxis given at the same time as prednisone, cannot take together. Had internal bleeding. Prednisone Cannot be given with Naproxy, had severe internal bleeding was hospitalized. Augmentin [Amoxicil* GI Upset Possibly GI. Can tolerate PCN and Amoxicillin Axid [Nizatidine] Byetta [Exenatide] GI Upset chronic abdominal pain, possibly low level pancreatitis? Crestor [Rosuvastat* Muscle cramps Flonase [Fluticason* headaches Indocin [Indomethac* Mobic [Meloxicam] Other: See Comments Problems with kidneys Naldecon Senior Ex * Neomycin Oruvail [Ketoprofen] Septra [Sulfamethox* Kjextky-Tqm-Mqw Red* Other: See Comments myalgia Tranxene-Sd [Cloraz* unknown Zantac [Ranitidine * Zetia [Ezetimibe] Joint Stiffness Zoloft [Sertraline * unknown EATING/WEIGHT HISTORY: Ms. Olson was overweight as a child. Her weight at age 17 was ?? lbs. I was voluptuous. The patient reports the following factors as contributing to weight gain: genetic predisposition, poor eating habits, inactivity . The patient reports some family history of obesity. Current Weight: BMI: The patient has tried weight loss strategies in the past including prepackaged meal-prep program, [employer], [place], Weight Watchers. The most weight the patient has lost is 20-30 lbs. using Weight Wat[employer]. The patient denies a history of laxative use. The patient denies a history of vomiting to lose weight. The patient denies a history of eating disorder(s). She has not had treatment for eating disorders in the past. Patient reports eating 2-3 meals/day, with occasional snacks. She reported having three meals on approximately 3 days. Breakfast/lunch: toast with pb and 2 slices of cheese Dinner: meat and vegetables, sometimes mashed potatoes or macaroni or noodles or soup Snack: string cheese or peanut butter Is not consistently keeping food journal; open to doing this. Eating for coping/emotional eating: Does not report a significant history of emotional eating The patient notes coffee/tea use of 2 large cups half-caf/day. Soda pop usage is 0 per day. The patient shows graze eating behaviors: No. Does patient note loss of control with grazing? not applicable. Grazing occurs 0 days/week. BINGE EATING ASSESSMENT: A. Recurrent episodes of binge eating. An episode is characterized by: 1. Eating a larger amount of food than normal during a short period of time (within any two hour period): No 2. Lack of control over eating during the binge episode (i.e. the feeling that one cannot stop eating): No B. Binge eating episodes are associated with three or more of the followin. Eating until feeling uncomfortably full: not applicable 2. Eating large amounts of food when not physically hungry: not applicable 3. Eating much more rapidly than normal: not applicable 4. Eating alone because you are embarrassed by how much you're eating: not applicable 5. Feeling disgusted, depressed, or guilty after overeating: not applicable THREE ASSOCIATED SYMPTOMS MET? not applicable C. Marked distress regarding binge eating is present: not applicable D. Binge eating occurs, on average, at least 1 days a week for three months: not applicable The patient reports 0 binge episodes per week for the past 12 months. E. The binge eating is not associated with the regular use of inappropriate compensatory behavior (i.e. purging, excessive exercise, etc.) and does not occur exclusively during the course of bulimia nervosa or anorexia nervosa.not applicable PATIENT MEETS ABOVE CRITERIA FOR BINGE EATING DISORDER: No NIGHT EATING SYNDROME A. Demonstrates a significantly increased intake in the evening and/or nighttime, as evidenced by one or both of the following. 1. At least 25% of food is consumed after the evening meal: No: but reported a history of this 2. At least two episodes of nocturnal eating per week: No: but reported a history of this B. The clinical picture is characterized by three or more of the followin. Lack of desire to eat in the morning and/or breakfast is skipped four or more mornings per week: not applicable 2. A strong urge to eat between dinner and sleep onset and/or during the night:not applicable 3. Insomnia is present four or more nights per week (onset or maintenance): not applicable 4. Belief one must eat to initiate or return to sleep: not applicable 5. Mood is frequently depressed or worsens in the evening: not applicable C. Marked distress or impairment around night eating is present: not applicable D. Night eating has occurred for at least 3 months: not applicable PATIENT MEETS ABOVE CRITERIA FOR NIGHT EATING SYNDROME: No MENTAL HEALTH HISTORY Patient reported she does not believe she has been diagnosed with depression or anxiety or other mental health treatment. Saw a couples therapist during first marriage but did not find helpful. Namenda and Aricept prescribed for mild cognitive impairment. Wellbutrin prescribed for MCI and eating at night. Denies any other history of mental health symptoms or treatment. Ms. Olson has never been an inpatient for a psychiatric reason. The patient has no previous suicide attempts. The patient has no history of self-injurious behavior. The patient has a family history of mental illness including possible depression in mother. The patient denies a history of physical, sexual, or emotional abuse. The following psychiatric symptoms are noted: Depression: Denies any current symptoms of depression Generalized Anxiety Disorder: Denies any symptoms of AMALIA Panic: Denies any symptoms of panic. Obsessive Compulsive Disorder: Denies any symptoms of OCD. Post-Traumatic Stress Disorder: Denies any PTSD symptoms Eli: Denies any history of hypomanic or manic episodes. Psychosis: Denies any hallucinations or delusions; reported a history of mild visual hallucinations at nighttime (shapes on ceiling) prior to MCI diagnosis but denies currently The patient has the following level of depression: none. Besides depressive disorders, the patient meets criteria for no discernible disorder(s). SUBSTANCE USE Alcohol Use Disorder Identification Test-C: How often do you drink Alcohol? 0 (Never); How many drinks containing alcohol do you have on a typical day when you are drinking? 0 ( = 1 or 2 ); How often do you have 5 or more drinks on one occasion: 0 (Never). The patient denies any alcohol consumption. Currently, the patient has no alcohol use. The patient was given a handout: The Facts About Alcohol Use & Your Bariatric Surgery. The patient DOES NOT report current marijuana use. The patient denies any lifetime drug use. The patient does not report social/occupational/legal consequences associated with drug or alcohol use. Currently, the patient has no reported substance abuse (prescription or illegal). Treatment included: The patient has never had any substance abuse treatment. The patient is a lifelong nonsmoker. The patient has no tobacco use. FAMILY OF ORIGIN Ms. Olson was raised by mother and father. She described her childhood as normal. The patient had no siblings. Did grow up with cousins. The patient's parents are both . She is currently close with her family. MARITAL FAMILY/SIGNIFICANT RELATIONSHIPS Ms. Olson is currently to second spouse of 17 years (Robert). The patient has three daughters (48yo, 45yo, 44yo); six grandkids. One great-grandson, two on the way. The patient currently lives with her The patient's significant other is supportive of her decision for surgery. She describes her family life as good. The patient will have her daughters and help her after surgery during the recovery period. Other social supports include extended family and friends. The patient reports that her social supports are supportive of her decision for surgery. EDUCATION/EMPLOYMENT The patient has completed 12+ years of education (business school). Her achievement in school was average. The patient is retired. 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 She is expecting to recover for 3-6 weeks postsurgery. CURRENT STRESSORS: The patient reports the following stressors: health problems The patient denies relationship conflicts, financial problems, and legal problems COPING STRATEGIES The patient reports the following coping strategies: talking with social supports, azar/prayer, napping, being with family, coloring, Sudoku, Solitaire. These coping strategies have been effective. The patient notes yazidism practice is: [facility]. The patient's cultural identity/ethnicity is: . LEISURE/EXERCISE The patient currently has no regular exercise program. Open to trying water aerobics/walking in the pool. SLEEP: The patient reports problems falling asleep: No The patient reports problems staying asleep: No The patient reports the following quality of sleep: poor Total sleep time: 5 hours, plus naps throughout the day Patient is diagnosed with BATSHEVA: Yes The patient wears a CPAP for 5 hours; 7 days/week. MENTAL STATUS EXAMINATION: Appearance: normal grooming Eye contact: normal Rapport: easy. Orientation: alert and oriented in all spheres (time, person, place, situation, object) Approach to evaluation/attitude toward examiner: cooperative Mood: calm Affect: euthymic. Self worth: average. Body Image: Dissatisfied Suicidal/homicidal ideation: Pt denied suicidal/homicidal ideation, plan and intent. Recall/Memory: normal Attention: normal Concentration: Normal Speech: within normal limits with regard to rate, tone and volume Psychomotor activity: average. Thought process: no evidence of formal thought disorder. Abstract thinking: normal. Thought content: within normal limits Hallucinations/Illusions: none Intellectual functioning: average. Insight: intact Judgment: normal PQRS G CODES: BMI--G8417: Calculated BMI above normal and follow-up plan was documented Tobacco--CPT II 1036 F: Current tobacco non-user Alcohol--CPT II 3016F: Patient screened for unhealthy alcohol use using a systematic screening method Depression--G8510: Negative screen for clinical depression; f/u NOT required Suicidality--G8932: suicide risk was assessed at the initial evaluation Medications--G8427: attestation that list of patient's current medications is documented or patient is not taking any medications PROVISIONAL DIAGNOSTIC IMPRESSION Primary Diagnoses: (F54) Psychological factors affecting medical condition (primary encounter diagnosis) (E66.01, Z68.43) Class 3 severe obesity with serious comorbidity and body mass index (BMI) of 50.0 to 59.9 in adult, unspecified obesity type (HCC) (G31.84) Mild cognitive impairment Personality Diagnoses: Deferred Global Assessment of Functionin-71 If symptoms are present, they are transient and expectable reactions to psychosocial stressors IMPRESSIONS: 1) Based on the information gathered through the interview process, she evidences possible psychological contraindication(s) for bariatric surgery in the form of mild cognitive impairment at this time. Patient reported a history of MCI diagnosis including memory problems. She is taking two medications for memory and has strong support from her daughters. She is highly motivated for surgery to improve overall health and hopefully slow cognitive decline; she does report understanding the surgery and was able to answer questions appropriately. She is open to having her neurology records sent and having a neuropsych eval for additional information on specific memory concerns and how we can best help support her. Also recommended more frequent one-on-one nutrition appointments A follow-up was set to check in on progress with changes and to explore any barriers to change. The patient appeared to have reasonable expectations regarding surgery. The patient s understanding of the surgery and the changes necessary post-operatively appears to be fair and would benefit from involvement of a support person. 2) The patient denied and did not evidence clinically significant depression, anxiety, or irritability at this time. The patient denied any history of or active tobacco use. The patient denies current substance abuse and does not evidence a history of substance abuse or dependence. The patient has moderate stress at this time. The patient has effective coping and strong supports. The patient does not have a history of an eating disorder. The patient does not meet criteria for an eating disorder at this time. Pt described the following maladaptive behavioral pattern: skipping meals; some caffeine intake; little formal exercise. TREATMENT PLAN AND RECOMMENDATIONS: 1) The following items are needed to complete the psychological evaluation: *Ongoing follow-up with nutrition to address unhealthy eating and activity patterns *Neuropsychological evaluation *Follow-up in 4-6 weeks *Additional requirements may arise in course of treatment. 2) The patient may benefit from the following during the surgery process: *Participation in a Weight Loss Surgery support group *Implement exercise program such as warm water aerobics, walking, or exercise that can be done from a chair *Follow up with psychology as an inpatient if needed *Follow up with psychology at 1, 3, 6, and 12 months postsurgery *Do not use alcohol, tobacco, and street drugs for 3 to 6 months prior to and after surgery. 3) The patient is to follow up in 4-6 weeks. 4) Above recommendations and treatment plan will be communicated back to the referring physician by way of the shared medical record. Thank you for this referral. Please feel free to call or page with any questions. Jacque Balderrama, Ph.D., Clinical Psychologist BEHAVIORAL HEALTH BARIATRIC EVALUATION SUMMARY DATE : February 05, 2022 PATIENT NAME: Ms. Olson 1. Consent: Fair 2. Expectations: Good 3. Social support: Excellent 4. Mental Health: Good 5. Chemical/Alcohol Abuse/Dependence: Excellent 6. Eating Behaviors: [id number] 7. Adherence: Good 8. Coping/Stressors: Good 9. Overall Psychological Impression: [id number] documented in this encounter [facility] 02-02-2022 History of Present illness Narrative Radiology Service Progress Note PATIENT NAME: Paula Olson DATE OF SERVICE: February 02, 2022 TIME: 7:42 AM PATIENT IDENTITY VERIFICATION COMPLETED USING TWO (2) IDENTIFIERS: Name and Date of confirmed by patient verbally. FALL SCREENING: Has the patient had 2 falls in the last year or 1 fall with injury or currently using an Ambulatory Assistive Device (Walker, Cane, Wheelchair, Crutches, etc.)? No PATIENT GENDER DATA: Female. status: : No status: N/A PATIENT RELEVANT IMPLANT DATA REVIEWED: Not Applicable RADIOLOGY DEPARTMENT: Ultrasound PERIPHERAL IV DATA: Not applicable SIGNED BY: Sola Jenkins RDMS RVT February 02, 2022 7:42 AM documented in this encounter [facility] 01-28-2022 Miscellaneous Notes Called and spoke to PT about disclosure statement sent to [employer]. pt advise will see daughter tomorrow that will help her documented in this encounter [facility] 01-18-2022 Note HNO ID: [id number] Author: Olamide Rowell RD Service: ? Author Type: Registered Dietitian Type: Progress Notes Filed: 01/19/2022 1:23 PM Note Text: [facility] - Bariatric Department New Patient Nutritional Assessment--Shared Nutrition Appointment Visit conducted via [employer] (audio and visual) d/t COVID 19 Paula Olson Month 09/24 Anthropometrics: 71 year old female LMP 02/01/2006 Medical History: PAST MEDICAL HISTORY Diagnosis Date - Acute gastritis without mention of hemorrhage - Allergic rhinitis, cause unspecified Allergic rhinitis - ASCVD (arteriosclerotic cardiovascular disease) 02/17/2003 - Benign neoplasm of colon 09/03/2005 - CKD (chronic kidney disease) stage 3, GFR 30-59 ml/min ([facility]) 06/01/2016 Dr. Chairez, nephrology - Depressive disorder, not elsewhere classified 12/13/2008 - Diabetes ([facility]) 08/19/1993 diagnosed. - DM type 2 causing CKD stage 4 ([facility]) 09/09/2014 - GERD (gastroesophageal reflux disease) 12/01/2010 - Gout involving toe 11/23/2016 - Hyperlipidemia 06/30/2015 - Hypertension 08/19/19993 - NM (myocardial infarction) ([facility]) - Morbid obesity ([facility]) - BATSHEVA on CPAP - Postmenopausal atrophic vaginitis 05/15/2012 - Renal failure - Snoring - Trigeminal nerve disorder, unspecified - Umbilical hernia without mention of obstruction or gangrene - Vitamin D deficiency 04/09/2010 Medications: Current Outpatient Medications Medication Sig Dispense Refill - metoprolol tartrate, short acting, (LOPRESSOR) 25 mg tablet Take 25 mg by mouth twice daily. - repaglinide (PRANDIN) 2 mg tablet Take by mouth three times daily before meals. - memantine (NAMENDA) 10 mg tablet Take 10 mg by mouth once daily. - polyethylene glycol 3350 (MIRALAX, GLYCOLAX) 17 gram/dose powder Use as directed for Miralax / Gatorade Bowel Prep Kit 238 g 0 - Gatorade Sports Drink Use as directed for Miralax / Gatorade Bowel Prep Kit - Bisacodyl (DULCOLAX) 5 mg tab Use as directed for Miralax / Gatorade Bowel Prep Kit 4 tablet 0 - Misc Natural Product Nasal (PONARIS) soln Ponaris nasal solution TAKE 2 DROPS TWICE A DAY BY NASAL ROUTE FOR 30 DAYS. - clopidogrel (PLAVIX) 75 mg tablet clopidogrel 75 mg tablet - donepezil (ARICEPT) 10 mg tablet 5 mg once daily. Takes in am - insulin glargine (LANTUS SOLOSTAR) 100 unit/mL (3 mL) inpn Inject 25 Units subcutaneously daily at bedtime. (Patient not taking: Reported on 02/18/2021 ) 5 Pen 5 - sitaGLIPtin (JANUVIA) 25 mg tablet Take 1 tablet by mouth once daily. (Patient not taking: Reported on 02/18/2021 ) - allopurinol (ZYLOPRIM) 100 mg tablet Take 1 tablet by mouth once daily. (Patient taking differently: Take 100 mg by mouth twice daily. ) 90 tablet 3 - lisinopril (ZESTRIL, PRINIVIL) 20 mg tablet Take 1 tablet by mouth once daily. 90 tablet 3 - citalopram (CELEXA) 20 mg tablet Take 1 tablet by mouth twice daily. 180 tablet 3 - ergocalciferol, vitamin D2, (DRISDOL) 50,000 unit capsule Take 1 capsule every two weeks. Dr. Chairez (Patient not taking: Reported on 02/18/2021 ) - verapamil (CALAN, ISOPTIN) 80 mg tablet Take 1 tablet by mouth three times daily. (Patient not taking: Reported on 02/18/2021 ) 270 tablet 3 - buPROPion SR (ZYBAN SR; WELLBUTRIN SR) 150 mg 12 hr tablet Take 1 tablet by mouth daily at bedtime. 90 tablet 3 - multivitamin tablet Take 1 tablet by mouth once daily. (Patient not taking: Reported on 02/18/2021 ) 0 - omega-3 fatty acids 1,000 mg cap Take 1 capsule by mouth once daily. (Patient not taking: Reported on 02/18/2021 ) 0 - Blood-Glucose Meter [facility] Dispense 1 kit 1 Each 0 - blood sugar diagnostic (BLOOD GLUCOSE TEST) test strip Test blood sugar(s) 2 xdaily. Dx: E11.22. Insulin: No 100 Strip 11 - Lancets lancets Test blood sugar(s) 2 x daily. Dx: E11.22. Insulin: No 100 Each 11 - omeprazole (PRILOSEC) 20 mg capsule Take 1 capsule by mouth twice daily. (Patient not taking: Reported on 02/18/2021 ) 180 capsule 3 - furosemide (LASIX) 40 mg tablet Take 1 tablet by mouth twice daily as needed. (Patient taking differently: Take 40 mg by mouth once daily. ) 180 tablet 3 No current facility-administered medications for this visit. Allergies: Naproxyn [Naproxen], Prednisone, Augmentin [Amoxicillin-Pot Clavulanate], Axid [Nizatidine], Byetta [Exenatide], Crestor [Rosuvastatin Calcium], Flonase [Fluticasone Propionate], Indocin [Indomethacin Sodium], Mobic [Meloxicam], Naldecon Senior Ex [Guaifenesin], Neomycin, Oruvail [Ketoprofen], Septra [Sulfamethoxazole-Trimethoprim], Uzthngz-Rgp-Gji Reductase Inhibitors, Tranxene-Sd [Clorazepate Dipotassium], Zantac [Ranitidine Hcl], Zetia [Ezetimibe], and Zoloft [Sertraline Hcl] Weight History: See PAY [employer]ATION DEPARTMENT MANAGER notes from initial program visit. Dietary Intake from 01/18/22: 24 hour recall provided--does report skipping breakfast meal frequently Breakfast- skips or may have pop tart Lunch- cannot recall Dinner- pork ro (more content not included)... [facility] 01-18-2022 Miscellaneous Notes Called to complete questionnaire for SNA today--no answer for home phone number and cell phone number does not have VM set up. Will send [employer] message to request patient to call our office to complete this information. Olamide Rowell RD documented in this encounter [facility] 01-18-2022 History of Present illness Narrative [facility] - Bariatric Department New Patient Nutritional Assessment--Shared Nutrition Appointment Visit conducted via [employer] (audio and visual) d/t COVID 19 Paula Noble Whitney Month 09/24 Anthropometrics: 71 year old female LMP 02/01/2006 Medical History: PAST MEDICAL HISTORY Diagnosis Date Acute gastritis without mention of hemorrhage Allergic rhinitis, cause unspecified Allergic rhinitis ASCVD (arteriosclerotic cardiovascular disease) 02/17/2003 Benign neoplasm of colon 09/03/2005 CKD (chronic kidney disease) stage 3, GFR 30-59 ml/min ([facility]) 06/01/2016 Dr. Chairez, nephrology Depressive disorder, not elsewhere classified 12/13/2008 Diabetes ([facility]) 08/19/1993 diagnosed. DM type 2 causing CKD stage 4 ([facility]) 09/09/2014 GERD (gastroesophageal reflux disease) 12/01/2010 Gout involving toe 11/23/2016 Hyperlipidemia 06/30/2015 Hypertension 08/19/19993 NM (myocardial infarction) ([facility]) Morbid obesity ([facility]) BATSHEVA on CPAP Postmenopausal atrophic vaginitis 05/15/2012 Renal failure Snoring Trigeminal nerve disorder, unspecified Umbilical hernia without mention of obstruction or gangrene Vitamin D deficiency 04/09/2010 Medications: Current Outpatient Medications Medication Sig Dispense Refill metoprolol tartrate, short acting, (LOPRESSOR) 25 mg tablet Take 25 mg by mouth twice daily. repaglinide (PRANDIN) 2 mg tablet Take by mouth three times daily before meals. memantine (NAMENDA) 10 mg tablet Take 10 mg by mouth once daily. polyethylene glycol 3350 (MIRALAX, GLYCOLAX) 17 gram/dose powder Use as directed for Miralax / Gatorade Bowel Prep Kit 238 g 0 Gatorade Sports Drink Use as directed for Miralax / Gatorade Bowel Prep Kit Bisacodyl (DULCOLAX) 5 mg tab Use as directed for Miralax / Gatorade Bowel Prep Kit 4 tablet 0 [facility] Natural Product Nasal (PONARIS) soln Ponaris nasal solution TAKE 2 DROPS TWICE A DAY BY NASAL ROUTE FOR 30 DAYS. clopidogrel (PLAVIX) 75 mg tablet clopidogrel 75 mg tablet donepezil (ARICEPT) 10 mg tablet 5 mg once daily. Takes in am insulin glargine (LANTUS SOLOSTAR) 100 unit/mL (3 mL) inpn Inject 25 Units subcutaneously daily at bedtime. (Patient not taking: Reported on 02/18/2021 ) 5 Pen 5 sitaGLIPtin (JANUVIA) 25 mg tablet Take 1 tablet by mouth once daily. (Patient not taking: Reported on 02/18/2021 ) allopurinol (ZYLOPRIM) 100 mg tablet Take 1 tablet by mouth once daily. (Patient taking differently: Take 100 mg by mouth twice daily. ) 90 tablet 3 lisinopril (ZESTRIL, PRINIVIL) 20 mg tablet Take 1 tablet by mouth once daily. 90 tablet 3 citalopram (CELEXA) 20 mg tablet Take 1 tablet by mouth twice daily. 180 tablet 3 ergocalciferol, vitamin D2, (DRISDOL) 50,000 unit capsule Take 1 capsule every two weeks. Dr. Chairez (Patient not taking: Reported on 02/18/2021 ) verapamil (CALAN, ISOPTIN) 80 mg tablet Take 1 tablet by mouth three times daily. (Patient not taking: Reported on 02/18/2021 ) 270 tablet 3 buPROPion SR (ZYBAN SR; WELLBUTRIN SR) 150 mg 12 hr tablet Take 1 tablet by mouth daily at bedtime. 90 tablet 3 multivitamin tablet Take 1 tablet by mouth once daily. (Patient not taking: Reported on 02/18/2021 ) 0 omega-3 fatty acids 1,000 mg cap Take 1 capsule by mouth once daily. (Patient not taking: Reported on 02/18/2021 ) 0 Blood-Glucose Meter [facility] Dispense 1 kit 1 Each 0 blood sugar diagnostic (BLOOD GLUCOSE TEST) test strip Test blood sugar(s) 2 xdaily. Dx: E11.22. Insulin: No 100 Strip 11 Lancets lancets Test blood sugar(s) 2 x daily. Dx: E11.22. Insulin: No 100 Each 11 omeprazole (PRILOSEC) 20 mg capsule Take 1 capsule by mouth twice daily. (Patient not taking: Reported on 02/18/2021 ) 180 capsule 3 furosemide (LASIX) 40 mg tablet Take 1 tablet by mouth twice daily as needed. (Patient taking differently: Take 40 mg by mouth once daily. ) 180 tablet 3 No current facility-administered medications for this visit. Allergies: Naproxyn [Naproxen], Prednisone, Augmentin [Amoxicillin-Pot Clavulanate], Axid [Nizatidine], Byetta [Exenatide], Crestor [Rosuvastatin Calcium], Flonase [Fluticasone Propionate], Indocin [Indomethacin Sodium], Mobic [Meloxicam], Naldecon Senior Ex [Guaifenesin], Neomycin, Oruvail [Ketoprofen], Septra [Sulfamethoxazole-Trimethoprim], Jxxcofg-[id number]-Tpp Reductase Inhibitors, Tranxene-Sd [Clorazepate Dipotassium], Zantac [Ranitidine Hcl], Zetia [Ezetimibe], and Zoloft [Sertraline Hcl] Weight History: See PAY STATION DEPARTMENT MANAGER notes from initial program visit. Dietary Intake from 01/18/22: 24 hour recall provided--does report skipping breakfast meal frequently Breakfast- skips or may have pop tart Lunch- cannot recall Dinner- pork roast w/ carrots Snacks- none Limitations of keeping a food record: none Food Allergies: none Frequency of fried foods: 1x/week Frequency of high sugar foods: not often Frequency of snack-type foods: a few times per week Frequency of caffeine/carbonated beverages: regular coffee daily, no alcohol Frequency of dining out meals: 1x/week Physical Activity: Physical conditions limiting activity: reports being stiff, occasionally walking with a cane Current activity: walking READINESS TO LEARN Cognitive ability: alert Motivation to learn: Interested Family support: Unable to assess - Family not present Instruction provided to: Patient Patient learns best by: multiple methods Factors affecting learning: None Physical limitations affecting learning: None Nutrition Diagnosis: Overweight/obesity, related to, food/nutrition - related knowledge deficit, as evidenced by BMI above normative standard for age and gender, infrequent, low-duration and/or low-intensity physical activity and pt verbally reports skipping meals in usual intake. Nutrition Intervention: Start to follow meal guidelines provided and work toward goals outlined below. Nutrition Monitoring & Evaluation: Monthly supervised wt loss to evaluate weight loss efforts with pre-op goal weight of 293# and patient protein goal of 60-90g. Required months of supervised weight loss per insurance: per PAY STATION DEPARTMENT MANAGER notes Written information provided and reviewed: Healthy plate/menus Behavior Checklist Journal The setting was a shared nutrition appointment in which she was seen individually with group observers. Consent to be seen in a group setting was obtained virtually. Goals reviewed and outlined below. [facility] Patient agreement was reviewed and Paula Olson received a copy of the patient agreement. The patient is aware by receiving this agreement, this accepts their understanding of the agreement and that surgery may not be recommended for medical and behavorial health reasons. Goals: Goals formal exercise 2-7x/week as tolerated, goal of 30 minutes Have 3 meals a day-protein source with each meal journal daily and bring to all appointments Total time in direct patient contact = 62 minutes. Greater than 50% of the time was spent in counseling and/or coordination of care. Olamide Rowell RD This note was generated using voice recognition technology and may contain grammatical errors. documented in this encounter [facility] 01-13-2022 Miscellaneous Notes I called and spoke with the patient and her delivery driver is Dr. Robertson in [place]. Her Slab Lifting Engineer is Dr. Winter in [place]. I called and left a message for the most recent A1C from Dr. Malin office. I called Dr. Winter's office and spoke with the staff and they will be faxing the last Cardiology note over. Sola Tuttle MA January 13, 2022 2:39 PM ----- Message from Sierra Peter Pss sent at 01/11/2022 7:33 AM EDT ----- Regarding: Records Martine Amin, PRESIDENT AND CHIEF COMMERCIAL OFFICER.GIFT SHOP MANAGER Please request most recent A1C from delivery driver and recent cardiology office notes. Thank you documented in this encounter [facility] 01-11-2022 Miscellaneous Notes Art Acevedo Cardiology 01/11/2022 End 01/11/22 ; New Clancy MD Nephrology 01/11/2022 End 01/11/22 ; FAXED. Brigid Toth Mail Reader Bariatric Dept. P: [phone] Ext [id number] documented in this encounter [facility] 01-08-2022 Note HNO ID: [id number] Author: Martine Amin APRN.GIFT SHOP MANAGER Service: ? Author Type: Nurse Practitioner Type: Progress Notes Filed: 01/08/2022 3:42 PM Note Text: BARIATRIC SURGERY NEW PATIENT CONSULTATION HISTORY AND PHYSICAL DISTANCE HEALTH VISIT This Team Access Model visit is a virtual encounter. It required patient-provider interaction for the medical decision making as documented below. Consent was obtained to complete today's distance health visit. Date: January 08, 2022 Time: 2:26 PM Name: Paula Olson CHIEF COMPLAINT: This is a 71 year old female with morbid obesity (Body mass index is 52.87 kg/m?.) who presents to clinic for consideration of bariatric surgery. HISTORY OF PRESENTING ILLNESS: Paula Olson presents today for consideration of bariatric surgery. She has suffered from weight problems majority of she lifespan and has numerous attempts at weight loss. This individual has lost weight through diet and exercise attempts, however ultimately regained this weight. Furthermore, She has struggled with weight loss most of her life, including childhood. She has made multiple attempts at weight loss on her own through diet and exercise?losing 20 to 30 pounds at one time but ultimately would plateau and/or regained weight. Her heaviest adult weight is 308 pounds, her healthiest adult weight was 150 pounds. Her daughter Isa at bariatric surgery with our program and has had great success. She was present during the virtual visit. Medical history significant for type 2 diabetes, on oral medication only. She was diagnosed in 1992. She was previously on insulin but was able to come off of it. She has mild neuropathy. She is followed by endocrinology. She is unsure of her most recent A1c. 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 She has a history of BATSHEVA, uses CPAP nightly. No supplemental oxygen. She denies history of asthma, COPD, further pulmonary issues. Cardiac history significant for hypertension (1 antihypertensive), HLD, ASCVD, previous NM with stent placement. She takes Plavix daily. There is mention of possible CHF diagnosis, but patient is poor historian regarding this. She states that she has occasional LE edema and uses Lasix PRN. She is followed by cardiology. She has occasional constipation and diarrhea?usually a specific food trigger. She previously suffered from heartburn symptoms and was taking a PPI. But, patient has not required medication and symptoms have been well controlled. She denies dysphagia, regurgitation, globus sensation. She denies history of DVT or PE She has mild joint pain, takes Tylenol as needed. She has a history of gout?denies frequent flares. She is on allopurinol for maintenance and has not required oral steroid in the past. She denies NSAID use. Psychosocial history is significant for depression, currently well managed with medication. Of note, she is on medication to help with memory as she has been suffering from some memory loss recently. She does have a support system of her daughter and son-in-law at home. She denies tobacco use, alcohol use, and illicit drug use. Surgical history significant for appendectomy, cholecystectomy, carpal tunnel release, cardiac stent placement, umbilical hernia repair HISTORY REVIEWED (electronic chart updated): - medical history - medications - allergies PAST MEDICAL HISTORY Diagnosis Date - Acute gastritis without mention of hemorrhage - Allergic rhinitis, cause unspecified Allergic rhinitis - ASCVD (arteriosclerotic cardiovascular disease) 02/17/2003 - Benign neoplasm of colon 09/03/2005 - CKD (chronic kidney disease) stage 3, GFR 30-59 ml/min ([facility]) 06/01/2016 Dr. Chairez, nephrology - Depressive disorder, not elsewhere classified 12/13/2008 - Diabetes ([facility]) 08/19/1993 diagnosed. - DM type 2 causing CKD stage 4 ([facility]) 09/09/2014 - GERD (gastroesophageal reflux disease) 12/01/2010 - Gout involving toe 11/23/2016 - Hyperlipidemia 06/30/2015 - Hypertension - NM (myocardial infarction) (HCC) - Morbid obesity (HCC) - BATSHEVA on CPAP - Postmenopausal atrophic vaginitis 05/15/2012 - Renal failure - Snoring - Trigeminal nerve disorder, unspecified - Umbilical hernia without mention of obstruction or gangrene - Vitamin D deficiency 04/09/2010 PAST SURGICAL HISTORY Procedure Laterality Date - APPENDECTOMY 1970 - CHOLECYSTECTOMY 1971 Cholecystectomy - COLONOSCOPY FLX DX W/COLLJ SPEC WHEN PFRMD 09/03/05 Colonoscopy - COLONOSCOPY FLX DX W/COLLJ SPEC WHEN PFRMD 03/06/15 Colonoscopy - EGD TRANSORAL BIOPSY SINGLE/MULTIPLE 11/16/2008 - EGD TRANSORAL BIOPSY SINGLE/MULTIPLE 12/01/10 - ESOPHAGOGASTRODUODENOSCOPY TRANSORAL DIAGNOSTIC 03/06/15 EGD - HEART SURGERY HX Heart Stent - LEFT HEART CATH,PERCUTANEOUS 02/2003 moderate CAD - PAST SURGICAL HISTORY OF Right (more content not included)... [facility] 01-08-2022 History of Present illness Narrative BARIATRIC SURGERY NEW PATIENT CONSULTATION HISTORY AND PHYSICAL DISTANCE HEALTH VISIT This Team Access Model visit is a virtual encounter. It required patient-provider interaction for the medical decision making as documented below. Consent was obtained to complete today's distance health visit. Date: January 08, 2022 Time: 2:26 PM Name: Paula Olson CHIEF COMPLAINT: This is a 71 year old female with morbid obesity (Body mass index is 52.87 kg/m .) who presents to clinic for consideration of bariatric surgery. HISTORY OF PRESENTING ILLNESS: Paula Olson presents today for consideration of bariatric surgery. She has suffered from weight problems majority of she lifespan and has numerous attempts at weight loss. This individual has lost weight through diet and exercise attempts, however ultimately regained this weight. Furthermore, She has struggled with weight loss most of her life, including childhood. She has made multiple attempts at weight loss on her own through diet and exercise losing 20 to 30 pounds at one time but ultimately would plateau and/or regained weight. Her heaviest adult weight is 308 pounds, her healthiest adult weight was 150 pounds. Her daughter Isa at bariatric surgery with our program and has had great success. She was present during the virtual visit. Medical history significant for type 2 diabetes, on oral medication only. She was diagnosed in 1992. She was previously on insulin but was able to come off of it. She has mild neuropathy. She is followed by endocrinology. She is unsure of her most recent A1c. 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 She has a history of BATSHEVA, uses CPAP nightly. No supplemental oxygen. She denies history of asthma, COPD, further pulmonary issues. Cardiac history significant for hypertension (1 antihypertensive), HLD, ASCVD, previous NM with stent placement. She takes Plavix daily. There is mention of possible CHF diagnosis, but patient is poor historian regarding this. She states that she has occasional LE edema and uses Lasix PRN. She is followed by cardiology. She has occasional constipation and diarrhea usually a specific food trigger. She previously suffered from heartburn symptoms and was taking a PPI. But, patient has not required medication and symptoms have been well controlled. She denies dysphagia, regurgitation, globus sensation. She denies history of DVT or PE She has mild joint pain, takes Tylenol as needed. She has a history of gout denies frequent flares. She is on allopurinol for maintenance and has not required oral steroid in the past. She denies NSAID use. Psychosocial history is significant for depression, currently well managed with medication. Of note, she is on medication to help with memory as she has been suffering from some memory loss recently. She does have a support system of her daughter and son-in-law at home. She denies tobacco use, alcohol use, and illicit drug use. Surgical history significant for appendectomy, cholecystectomy, carpal tunnel release, cardiac stent placement, umbilical hernia repair HISTORY REVIEWED (electronic chart updated): - medical history - medications - allergies PAST MEDICAL HISTORY Diagnosis Date Acute gastritis without mention of hemorrhage Allergic rhinitis, cause unspecified Allergic rhinitis ASCVD (arteriosclerotic cardiovascular disease) 02/17/2003 Benign neoplasm of colon 09/03/2005 CKD (chronic kidney disease) stage 3, GFR 30-59 ml/min ([facility]) 06/01/2016 Dr. Chairez, nephrology Depressive disorder, not elsewhere classified 12/13/2008 Diabetes ([facility]) 08/19/1993 diagnosed. DM type 2 causing CKD stage 4 ([facility]) 09/09/2014 GERD (gastroesophageal reflux disease) 12/01/2010 Gout involving toe 11/23/2016 Hyperlipidemia 06/30/2015 Hypertension 08/19/19993 NM (myocardial infarction) (HCC) Morbid obesity (HCC) BATSHEVA on CPAP Postmenopausal atrophic vaginitis 05/15/2012 Renal failure Snoring Trigeminal nerve disorder, unspecified Umbilical hernia without mention of obstruction or gangrene Vitamin D deficiency 04/09/2010 PAST SURGICAL HISTORY Procedure Laterality Date APPENDECTOMY 1971 CHOLECYSTECTOMY 1971 Cholecystectomy COLONOSCOPY FLX DX W/COLLJ SPEC WHEN PFRMD 09/03/05 Colonoscopy COLONOSCOPY FLX DX W/COLLJ SPEC WHEN PFRMD 03/06/15 Colonoscopy EGD TRANSORAL BIOPSY SINGLE/MULTIPLE 11/16/2008 EGD TRANSORAL BIOPSY SINGLE/MULTIPLE 12/01/10 ESOPHAGOGASTRODUODENOSCOPY TRANSORAL DIAGNOSTIC 03/06/15 EGD HEART SURGERY HX Heart Stent LEFT HEART CATH,PERCUTANEOUS 02/2003 moderate CAD PAST SURGICAL HISTORY OF Right 07/24/2015 Arthroscopy of Right Shoulder with Synovectomy, debridement of glenohumeral joint, biceps tenotomy, acromioplasty and distal claviculectomy RPR UMBILICAL HRNA 5 YRS/> REDUCIBLE 01/22/08 SINUS SURGERY PROC UNLISTED 04/10/1999 XCAPSL CTRC RMVL INSJ IO LENS PROSTH W/O ECP 03/30/2013 Cataract Extraction with PC IOL Dr Tolentino [facility] XCAPSL CTRC RMVL INSJ IO LENS PROSTH W/O ECP 04/20/2013 Cataract Extraction with PC IOL Dr Tolentino left eye FAMILY HISTORY Problem Relation Age of Onset Diabetes Mother Heart Mother Hypertension Mother Lipids Mother Diabetes Maternal Aunt x 2 SOCIAL HISTORY: Social History Tobacco Use Smoking status: Never Smoker Smokeless tobacco: Never Used Substance Use Topics Alcohol use: No Drug use: No MEDICATIONS: Prior to Admission Medications: metoprolol tartrate, short acting, (LOPRESSOR) 25 mg tablet Take 25 mg by mouth twice daily. repaglinide (PRANDIN) 2 mg tablet Take by mouth three times daily before meals. memantine (NAMENDA) 10 mg tablet Take 10 mg by mouth once daily. clopidogrel (PLAVIX) 75 mg tablet clopidogrel 75 mg tablet donepezil (ARICEPT) 10 mg tablet 5 mg once daily. Takes in am allopurinol (ZYLOPRIM) 100 mg tablet Take 1 tablet by mouth once daily. lisinopril (ZESTRIL, PRINIVIL) 20 mg tablet Take 1 tablet by mouth once daily. citalopram (CELEXA) 20 mg tablet Take 1 tablet by mouth twice daily. Blood-Glucose Meter [facility] Dispense 1 kit blood sugar diagnostic (BLOOD GLUCOSE TEST) test strip Test blood sugar(s) 2 xdaily. Dx: E11.22. Insulin: No Lancets lancets Test blood sugar(s) 2 x daily. Dx: E11.22. Insulin: No furosemide (LASIX) 40 mg tablet Take 1 tablet by mouth twice daily as needed. polyethylene glycol 3350 (MIRALAX, GLYCOLAX) 17 gram/dose powder Use as directed for Miralax / Gatorade Bowel Prep Kit Gatorade Sports Drink Use as directed for Miralax / Gatorade Bowel Prep Kit Bisacodyl (DULCOLAX) 5 mg tab Use as directed for Miralax / Gatorade Bowel Prep Kit [facility] Natural Product Nasal (PONARIS) soln Ponaris nasal solution TAKE 2 DROPS TWICE A DAY BY NASAL ROUTE FOR 30 DAYS. insulin glargine (LANTUS SOLOSTAR) 100 unit/mL (3 mL) inpn Inject 25 Units subcutaneously daily at bedtime. sitaGLIPtin (JANUVIA) 25 mg tablet Take 1 tablet by mouth once daily. ergocalciferol, vitamin D2, (DRISDOL) 50,000 unit capsule Take 1 capsule every two weeks[address] Dr[address] Chairez verapamil (CALAN, ISOPTIN) 80 mg tablet Take 1 tablet by mouth three times daily. buPROPion SR (ZYBAN SR; WELLBUTRIN SR) 150 mg 12 hr tablet Take 1 tablet by mouth daily at bedtime. multivitamin tablet Take 1 tablet by mouth once daily. omega-3 fatty acids 1,000 mg cap Take 1 capsule by mouth once daily. omeprazole (PRILOSEC) 20 mg capsule Take 1 capsule by mouth twice daily. ALLERGIES Allergen Reactions Naproxyn [Naproxen] Anaphylaxis given at the same time as prednisone, cannot take together. Had internal bleeding. Prednisone Cannot be given with Naproxy, had severe internal bleeding was hospitalized. Augmentin [Amoxicil* GI Upset Possibly GI. Can tolerate PCN and Amoxicillin Axid [Nizatidine] Byetta [Exenatide] GI Upset chronic abdominal pain, possibly low level pancreatitis? Crestor [Rosuvastat* Muscle cramps Flonase [Fluticason* headaches Indocin [Indomethac* Mobic [Meloxicam] Other: See Comments Problems with kidneys Naldecon Senior Ex * Neomycin Oruvail [Ketoprofen] Septra [Sulfamethox* Lauktlu-Vkq-Qga Red* Other: See Comments myalgia Tranxene-Sd [Cloraz* unknown Zantac [Ranitidine * Zetia [Ezetimibe] Joint Stiffness Zoloft [Sertraline * unknown Sleep apnea screen: Known BATSHEVA REVIEW OF SYSTEMS: GENERAL: No weight loss, malaise or fevers HEENT: Negative for frequent or significant headaches, No changes in hearing or vision, no nose bleeds or other nasal problems NECK: Negative for lumps, goiter, pain and significant neck swelling RESPIRATORY: Negative for cough, hemoptysis, wheezing, COPD, dyspnea or shortness of breath CARDIOVASCULAR: See HPI GI: No nausea, vomiting, or diarrhea and No heartburn or reflux symptoms : No history of dysuria, frequency or incontinence MUSCULOSKELETAL: Negative for joint pain or swelling, back pain or muscle pain SKIN: Negative for lesions, rash, and itching PSYCH: Negative for sleep disturbance, mood disorder and recent psychosocial stressors, positive for memory loss HEMATOLOGY/LYMPHOLOGY: Negative for prolonged bleeding, bruising easily or swollen nodes ENDOCRINE: Negative for cold or heat intolerance, polyuria, polydipsia and goiter PHYSICAL EXAM: Ht 162.6 cm (5' 4 ) Wt (!) 139.7 kg (308 lb) LMP 02/01/2006 BMI 52.87 kg/m GENERAL APPEARANCE: Pleasant, interacts appropriately and in no apparent distress Appropriately groomed, happy, smiling, and interactive. ENT: Oral mucosa pink without lesions/ulcerations; LUNGS: unlabored on room air negative findings: normal respiratory rate and rhythm, no cough ABDOMEN: Obese SKIN: Skin of normal texture, temperature without rashes/lesions/ulcerations. NEURO/PSYCH: Oriented to person, place, time; appropriate insight and judgement. Appropriate affect. Diagnostic Tests Reviewed for Today's Visit Most recent labs and imaging results. Further Work-up: Required monthly visits: 1 of 6 months. Patient is interested in: Sleeve Gastrectomy EGD: surgeon Upper GI: surgeon NACHO US: pending Sleep Study: Sleep apnea, uses CPAP CXR:per pulmonary clearance EKG:per cardiac clearance H Pylori pending Labs:pending Nicotine use <12 months: NA Antiplatelet/anticoagulants: Plavix (Clopidogrel) Immunosuppressive therapy: No Estrogen therapy: No Evaluations Psychology: ongoing Nutrition: ongoing Education class: ongoing Clearances: Cardiac (with recs on Plavix), Pulmonary, PCP and nephrology Risk Calculator: VTE Risk: TBD need to clarify CHF diagnosis COVID-19 Risk 3 ISS score:TBD need A1C Adverse Event score: TBD Post-op Medications: Extended Lovenox: TBD Actigall: not needed, hx of cholecystectomy H2 geovanna/PPI: Will require IMPRESSION AND PLAN: Paula Olson is a 71 year old female with the following diagnosis and co-morbidities: Body mass index is 52.87 kg/m . This patient does meet the criteria for a surgical weight loss procedure according to NIH guidelines. Time was spent discussing both surgical options as well as she was provided with estimations in terms of percent excess weight loss. Procedure she is interested in: SG Paula Olson complete a 6 month trial of diet and exercise. Therefore, Paula Olson was given a 15 pound weight loss goal, received 10-15 minutes of dietary counseling in office today, as well as was scheduled for our shared education class. She will also need to be cleared by psychology. ASSESSMENT/PLAN: 1. Class 3 severe obesity with body mass index (BMI) of 50.0 to 59.9 in adult, unspecified obesity type, unspecified whether serious comorbidity present (HCC) - ICD9: 278.01, V85.43, ICD10: E66.01, Z68.43 (primary diagnosis) Stable - Behavioral intervention, - Medical nutrition therapy with dietitian and - Psychology - CBC - COMP METABOLIC PANEL - FERRITIN BLD - FOLATE SERUM - IRON + TIBC - PTH INTACT BLD - US ABD RT UPPER QUADRANT - VITAMIN B12 BLOOD - VITAMIN D 25 HYDROXY - VITAMIN B1 (THIAMINE), WHOLE BLOOD - CONSULT TO PULMONARY MEDICINE - CONSULT TO OBESITY MEDICINE 2. BATSHEVA (obstructive sleep apnea) - ICD9: 327.23, ICD10: G47.33 - Uses CPAP nightly - Requesting pulmonary clearance - FERRITIN BLD - IRON + TIBC - CONSULT TO PULMONARY MEDICINE - CONSULT TO OBESITY MEDICINE 3. Type 2 diabetes (HCC) - ICD9: 250.00, ICD10: E11.9 - Requesting recent A1C from endocrinology - On Prandin - no insulin - FERRITIN BLD - IRON + TIBC - CONSULT TO OBESITY MEDICINE 4. ASCVD (arteriosclerotic cardiovascular disease) - ICD9: 429.2, 440.9, ICD10: I25.10 - Previous NM with subsequent cardiac stent placemet - On Plavix daily - Requesting cardiac clearance. Will ask for recommendations on Plavix before and after surgery - Requesting cardiology office notes to clarify cardiac history, specifically diagnosis of CHF - FERRITIN BLD - IRON + TIBC - CONSULT TO OBESITY MEDICINE 5. Hypertension, unspecified type - ICD9: 401.9, ICD10: I10 - On lisinopril and metoprolol - Uses Lasix as needed for LE edema - FERRITIN BLD - IRON + TIBC - CONSULT TO OBESITY MEDICINE 6. Stage 3a chronic kidney disease (HCC) - ICD9: 585.3, ICD10: N18.31 - Requesting nephrology clearance - FERRITIN BLD - IRON + TIBC 7. Memory loss - Currently taking namenda - Will discuss with bariatric psychologist for further assessment Patient is interested in meeting with obesity medicine to discuss nonsurgical weight loss options. But, she does want to meet with surgeon to discuss surgical options as well. If patient does decide to proceed with surgical program we will see her on a monthly basis until all testing and clearances are complete. Martine Amin APRN.RODERICK I spent a total of 70 minutes on the date of the service which included preparing to see the patient, [id number] patient care, completing clinical documentation, obtaining and/or reviewing separately obtained history, counseling and educating the patient/family/caregiver, ordering medications, tests, or procedures, communicating results to the patient/family/caregiver and care coordination (not separately reported). This note was generated using voice recognition technology and may contain grammatical errors. documented in this encounter [facility] 01-08-2022 Instructions Martine Amin APRN.CNP - 01/08/2022 1:31 PM EDT [email or web address] Welcome to the first step towards your new healthy life! As we discussed, please review the Bariatric Center program and contract. Review with the handouts that were provided which include: the plate diet, food journal, follow-up schedule, bariatric patient flowsheet, and support group flyer with upcoming dates. Please incorporate efforts at eating 3 meals per day with each meal lasting no longer than 30 minutes. Anything longer would be considered grazing . Also, begin incorporating exercise 4-5 times per week for 30 minutes. This will help you achieve your presurgical weight loss goal. Please attend educational class as scheduled. Please maintain your appointment with our psychologist for your evaluation as directed. Please complete any additional orders and/or testing as directed by your provider. You will see us on a 4-6 week basis for medically supervised weight loss and we'll progress you towards surgery. Height: Last 1 Encounter Ht Readings: Date: Ht: 01/08/2022 162.6 cm (5' 4 ) Weight:Last 1 Encounter Wt Readings: Date: Wt: 01/08/2022 139.7 kg (308 lb) [place] Body Weight: 145 lb Based on body mass index (BMI) of 25 kg/m2 which is considered the upper limit of normal weight. Excess Weight: 163 lb Realistic Sleeve Gastrectomy Weight Goal (55-76 % Excess weight loss):184 lb - 218 lb Realistic Gastric Bypass Weight Goal (60-80 % Excess weight loss): 178 lb - 210 lb Surgery is not the cure for obesity. It is a tool that can assist with weight loss and long-term management. However, this tool can be incredibly powerful with healthy eating and activity patterns. Diet: Three high-protein meals per day plus a healthy snack if needed. The goal is for each meal to be high in protein and relatively low in fat and carbohydrates. A meal should only last approximately 30 minutes. Physical Activity: 20-30 minutes of continuous exercise 5-6 times a week. This must be dedicated physical activity of moderate intensity (elevated heart rate) to promote calorie burning. documented in this encounter [facility] 12-22-2021 Miscellaneous Notes NEW PATIENT/ RED/ TOM/Medicare/6 MONTHS Attempted to contact patient to schedule New patient appointments with [employer]GER, SNA, AND Psych however VM box full. Will attempt again tomorrow. Brigid Toth [facility] P: [phone] Ext [id number] documented in this encounter [facility] 12-22-2021 Miscellaneous Notes Insurance Verification Insurance Company: Medicare PRIMARY EXCLUDED: No E66.01 Obesity Medicine Coverage: Yes [id number] RNY Yes [id number] SLEEVE Yes [id number] REVISION Yes Single 80 % 250 Deductible Virtual visit coverage: Yes ACTION: Appointment Scheduled: No Message Left: No PATHWAY: RED Brigid Toth December 22, 2021 1:03 PM documented in this encounter [facility] documented as of this encounter (statuses as of 12/22/2021) [facility] History of Past illness Narrative* Problem Noted Date Resolved Date Other symptoms involving digestive system(787.99 ) 03/06/2015 03/06/2015 Diabetes mellitus type 2, controlled, without co mplications 12/24/2014 01/27/2016 BMI 50.0-59.9, adult 10/29/2013 03/25/2015 Postmenopausal atrophic vaginitis 05/15/2012 06/01/2016 Acute gastritis without mention of hemorrhage 06/01/2016 CKD (Chronic Kidney Disease) Stage 3, GFR 30-59 ml/min 04/09/2010 09/09/2014 GASTRITIS ACUTE( With Hemorrhage) 12/13/2008 06/01/2016 DM Renal Manif Type II, Uncontrolled 01/19/2006 06/10/2014 Overview: 1994 HYPERLIPIDEMIA NEC/NOS 07/26/2005 5 Allergic rhinitis, cause unspecified 06/01/2016 Unspecified cardiovascular disease 06/01/2016 Morbid obesity 12/24/2014 Trigeminal nerve disorder, unspecified 06/01/2016 Abdominal pain, right upper quadrant 05/15/2012 documented as of this encounter (statuses as of 01/08/2022) [facility] History of Past illness Narrative* Problem Noted Date Resolved Date Other symptoms involving digestive system(787.99 ) 03/06/2015 03/06/2015 Diabetes mellitus type 2, controlled, without co mplications 12/24/2014 01/27/2016 BMI 50.0-59.9, adult 10/29/2013 03/25/2015 Postmenopausal atrophic vaginitis 05/15/2012 06/01/2016 Acute gastritis without mention of hemorrhage 06/01/2016 CKD (Chronic Kidney Disease) Stage 3, GFR 30-59 ml/min 04/09/2010 09/09/2014 GASTRITIS ACUTE( With Hemorrhage) 12/13/2008 06/01/2016 DM Renal Manif Type II, Uncontrolled 01/19/2006 06/10/2014 Overview: 1994 HYPERLIPIDEMIA NEC/NOS 07/26/2005 5 Allergic rhinitis, cause unspecified 06/01/2016 Unspecified cardiovascular disease 06/01/2016 Morbid obesity 12/24/2014 Trigeminal nerve disorder, unspecified 06/01/2016 Abdominal pain, right upper quadrant 05/15/2012 documented as of this encounter (statuses as of 01/11/2022) [facility] History of Past illness Narrative* Problem Noted Date Resolved Date Other symptoms involving digestive system(787.99 ) 03/06/2015 03/06/2015 Diabetes mellitus type 2, controlled, without co mplications 12/24/2014 01/27/2016 BMI 50.0-59.9, adult 10/29/2013 03/25/2015 Postmenopausal atrophic vaginitis 05/15/2012 06/01/2016 Acute gastritis without mention of hemorrhage 06/01/2016 CKD (Chronic Kidney Disease) Stage 3, GFR 30-59 ml/min 04/09/2010 09/09/2014 GASTRITIS ACUTE( With Hemorrhage) 12/13/2008 06/01/2016 DM Renal Manif Type II, Uncontrolled 01/19/2006 06/10/2014 Overview: 1994 HYPERLIPIDEMIA NEC/NOS 07/26/2005 5 Allergic rhinitis, cause unspecified 06/01/2016 Unspecified cardiovascular disease 06/01/2016 Morbid obesity 12/24/2014 Trigeminal nerve disorder, unspecified 06/01/2016 Abdominal pain, right upper quadrant 05/15/2012 documented as of this encounter (statuses as of 01/13/2022) [facility] History of Past illness Narrative* Problem Noted Date Resolved Date Other symptoms involving digestive system(787.99 ) 03/06/2015 03/06/2015 Diabetes mellitus type 2, controlled, without co mplications 12/24/2014 01/27/2016 BMI 50.0-59.9, adult 10/29/2013 03/25/2015 Postmenopausal atrophic vaginitis 05/15/2012 06/01/2016 Acute gastritis without mention of hemorrhage 06/01/2016 CKD (Chronic Kidney Disease) Stage 3, GFR 30-59 ml/min 04/09/2010 09/09/2014 GASTRITIS ACUTE( With Hemorrhage) 12/13/2008 06/01/2016 DM Renal Manif Type II, Uncontrolled 01/19/2006 06/10/2014 Overview: 1994 HYPERLIPIDEMIA NEC/NOS 07/26/2005 5 Allergic rhinitis, cause unspecified 06/01/2016 Unspecified cardiovascular disease 06/01/2016 Morbid obesity 12/24/2014 Trigeminal nerve disorder, unspecified 06/01/2016 Abdominal pain, right upper quadrant 05/15/2012 documented as of this encounter (statuses as of 01/18/2022) [facility] History of Past illness Narrative* Problem Noted Date Resolved Date Other symptoms involving digestive system(787.99 ) 03/06/2015 03/06/2015 Diabetes mellitus type 2, controlled, without co mplications 12/24/2014 01/27/2016 BMI 50.0-59.9, adult 10/29/2013 03/25/2015 Postmenopausal atrophic vaginitis 05/15/2012 06/01/2016 Acute gastritis without mention of hemorrhage 06/01/2016 CKD (Chronic Kidney Disease) Stage 3, GFR 30-59 ml/min 04/09/2010 09/09/2014 GASTRITIS ACUTE( With Hemorrhage) 12/13/2008 06/01/2016 DM Renal Manif Type II, Uncontrolled 01/19/2006 06/10/2014 Overview: 1994 HYPERLIPIDEMIA NEC/NOS 07/26/2005 5 Allergic rhinitis, cause unspecified 06/01/2016 Unspecified cardiovascular disease 06/01/2016 Morbid obesity 12/24/2014 Trigeminal nerve disorder, unspecified 06/01/2016 Abdominal pain, right upper quadrant 05/15/2012 documented as of this encounter (statuses as of 01/19/2022) [facility] History of Past illness Narrative* Problem Noted Date Resolved Date Other symptoms involving digestive system(787.99 ) 03/06/2015 03/06/2015 Diabetes mellitus type 2, controlled, without co mplications 12/24/2014 01/27/2016 BMI 50.0-59.9, adult 10/29/2013 03/25/2015 Postmenopausal atrophic vaginitis 05/15/2012 06/01/2016 Acute gastritis without mention of hemorrhage 06/01/2016 CKD (Chronic Kidney Disease) Stage 3, GFR 30-59 ml/min 04/09/2010 09/09/2014 GASTRITIS ACUTE( With Hemorrhage) 12/13/2008 06/01/2016 DM Renal Manif Type II, Uncontrolled 01/19/2006 06/10/2014 Overview: 1994 HYPERLIPIDEMIA NEC/NOS 07/26/2005 5 Allergic rhinitis, cause unspecified 06/01/2016 Unspecified cardiovascular disease 06/01/2016 Morbid obesity 12/24/2014 Trigeminal nerve disorder, unspecified 06/01/2016 Abdominal pain, right upper quadrant 05/15/2012 documented as of this encounter (statuses as of 01/28/2022) [facility] History of Past illness Narrative* Problem Noted Date Resolved Date Other symptoms involving digestive system(787.99 ) 03/06/2015 03/06/2015 Diabetes mellitus type 2, controlled, without co mplications 12/24/2014 01/27/2016 BMI 50.0-59.9, adult 10/29/2013 03/25/2015 Postmenopausal atrophic vaginitis 05/15/2012 06/01/2016 Acute gastritis without mention of hemorrhage 06/01/2016 CKD (Chronic Kidney Disease) Stage 3, GFR 30-59 ml/min 04/09/2010 09/09/2014 GASTRITIS ACUTE( With Hemorrhage) 12/13/2008 06/01/2016 DM Renal Manif Type II, Uncontrolled 01/19/2006 06/10/2014 Overview: 1994 HYPERLIPIDEMIA NEC/NOS 07/26/2005 5 Allergic rhinitis, cause unspecified 06/01/2016 Unspecified cardiovascular disease 06/01/2016 Morbid obesity 12/24/2014 Trigeminal nerve disorder, unspecified 06/01/2016 Abdominal pain, right upper quadrant 05/15/2012 documented as of this encounter (statuses as of 02/03/2022) [facility] History of Past illness Narrative* Problem Noted Date Resolved Date Other symptoms involving digestive system(787.99 ) 03/06/2015 03/06/2015 Diabetes mellitus type 2, controlled, without co mplications 12/24/2014 01/27/2016 BMI 50.0-59.9, adult 10/29/2013 03/25/2015 Postmenopausal atrophic vaginitis 05/15/2012 06/01/2016 Acute gastritis without mention of hemorrhage 06/01/2016 CKD (Chronic Kidney Disease) Stage 3, GFR 30-59 ml/min 04/09/2010 09/09/2014 GASTRITIS ACUTE( With Hemorrhage) 12/13/2008 06/01/2016 DM Renal Manif Type II, Uncontrolled 01/19/2006 06/10/2014 Overview: 1995 HYPERLIPIDEMIA NEC/NOS 07/26/2005 5 Allergic rhinitis, cause unspecified 06/01/2016 Unspecified cardiovascular disease 06/01/2016 Morbid obesity 12/24/2014 Trigeminal nerve disorder, unspecified 06/01/2016 Abdominal pain, right upper quadrant 05/15/2012 documented as of this encounter (statuses as of 02/05/2022) [facility] History of Past illness Narrative* Problem Noted Date Resolved Date Other symptoms involving digestive system(787.99 ) 03/06/2015 03/06/2015 Diabetes mellitus type 2, controlled, without co mplications 12/24/2014 01/27/2016 BMI 50.0-59.9, adult 10/29/2013 03/25/2015 Postmenopausal atrophic vaginitis 05/15/2012 06/01/2016 Acute gastritis without mention of hemorrhage 06/01/2016 CKD (Chronic Kidney Disease) Stage 3, GFR 30-59 ml/min 04/09/2010 09/09/2014 GASTRITIS ACUTE( With Hemorrhage) 12/13/2008 06/01/2016 DM Renal Manif Type II, Uncontrolled 01/19/2006 06/10/2014 Overview: 1994 HYPERLIPIDEMIA NEC/NOS 07/26/2005 5 Allergic rhinitis, cause unspecified 06/01/2016 Unspecified cardiovascular disease 06/01/2016 Morbid obesity 12/24/2014 Trigeminal nerve disorder, unspecified 06/01/2016 Abdominal pain, right upper quadrant 05/15/2012 documented as of this encounter (statuses as of 02/12/2022) [facility] History of Past illness Narrative* Problem Noted Date Resolved Date Other symptoms involving digestive system(787.99 ) 03/06/2015 03/06/2015 Diabetes mellitus type 2, controlled, without co mplications 12/24/2014 01/27/2016 BMI 50.0-59.9, adult 10/29/2013 03/25/2015 Postmenopausal atrophic vaginitis 05/15/2012 06/01/2016 Acute gastritis without mention of hemorrhage 06/01/2016 CKD (Chronic Kidney Disease) Stage 3, GFR 30-59 ml/min 04/09/2010 09/09/2014 GASTRITIS ACUTE( With Hemorrhage) 12/13/2008 06/01/2016 DM Renal Manif Type II, Uncontrolled 01/19/2006 06/10/2014 Overview: 1994 HYPERLIPIDEMIA NEC/NOS 07/26/2005 5 Allergic rhinitis, cause unspecified 06/01/2016 Unspecified cardiovascular disease 06/01/2016 Morbid obesity 12/24/2014 Trigeminal nerve disorder, unspecified 06/01/2016 Abdominal pain, right upper quadrant 05/15/2012 documented as of this encounter (statuses as of 02/12/2022) [facility] History of Past illness Narrative* Problem Noted Date Resolved Date Other symptoms involving digestive system(787.99 ) 03/06/2015 03/06/2015 Diabetes mellitus type 2, controlled, without co mplications 12/24/2014 01/27/2016 BMI 50.0-59.9, adult 10/29/2013 03/25/2015 Postmenopausal atrophic vaginitis 05/15/2012 06/01/2016 Acute gastritis without mention of hemorrhage 06/01/2016 CKD (Chronic Kidney Disease) Stage 3, GFR 30-59 ml/min 04/09/2010 09/09/2014 GASTRITIS ACUTE( With Hemorrhage) 12/13/2008 06/01/2016 DM Renal Manif Type II, Uncontrolled 01/19/2006 06/10/2014 Overview: 1994 HYPERLIPIDEMIA NEC/NOS 07/26/2005 5 Allergic rhinitis, cause unspecified 06/01/2016 Unspecified cardiovascular disease 06/01/2016 Morbid obesity 12/24/2014 Trigeminal nerve disorder, unspecified 06/01/2016 Abdominal pain, right upper quadrant 05/15/2012 documented as of this encounter (statuses as of 03/05/2022) [facility] History of Past illness Narrative* Problem Noted Date Resolved Date Other symptoms involving digestive system(787.99 ) 03/06/2015 03/06/2015 Diabetes mellitus type 2, controlled, without co mplications 12/24/2014 01/27/2016 BMI 50.0-59.9, adult 10/29/2013 03/25/2015 Postmenopausal atrophic vaginitis 05/15/2012 06/01/2016 Acute gastritis without mention of hemorrhage 06/01/2016 CKD (Chronic Kidney Disease) Stage 3, GFR 30-59 ml/min 04/09/2010 09/09/2014 GASTRITIS ACUTE( With Hemorrhage) 12/13/2008 06/01/2016 DM Renal Manif Type II, Uncontrolled 01/19/2006 06/10/2014 Overview: 1994 HYPERLIPIDEMIA NEC/NOS 07/26/2005 5 Allergic rhinitis, cause unspecified 06/01/2016 Unspecified cardiovascular disease 06/01/2016 Morbid obesity 12/24/2014 Trigeminal nerve disorder, unspecified 06/01/2016 Abdominal pain, right upper quadrant 05/15/2012 documented as of this encounter (statuses as of 03/05/2022) [facility] History of Past illness Narrative* Problem Noted Date Resolved Date Other symptoms involving digestive system(787.99 ) 03/06/2015 03/06/2015 Diabetes mellitus type 2, controlled, without co mplications 12/24/2014 01/27/2016 BMI 50.0-59.9, adult 10/29/2013 03/25/2015 Postmenopausal atrophic vaginitis 05/15/2012 06/01/2016 Acute gastritis without mention of hemorrhage 06/01/2016 CKD (Chronic Kidney Disease) Stage 3, GFR 30-59 ml/min 04/09/2010 09/09/2014 GASTRITIS ACUTE( With Hemorrhage) 12/13/2008 06/01/2016 DM Renal Manif Type II, Uncontrolled 01/19/2006 06/10/2014 Overview: 1994 HYPERLIPIDEMIA NEC/NOS 07/26/2005 5 Allergic rhinitis, cause unspecified 06/01/2016 Unspecified cardiovascular disease 06/01/2016 Morbid obesity 12/24/2014 Trigeminal nerve disorder, unspecified 06/01/2016 Abdominal pain, right upper quadrant 05/15/2012 documented as of this encounter (statuses as of 03/08/2022) [facility] History of Past illness Narrative* Problem Noted Date Resolved Date Other symptoms involving digestive system(787.99 ) 03/06/2015 03/06/2015 Diabetes mellitus type 2, controlled, without co mplications 12/24/2014 01/27/2016 BMI 50.0-59.9, adult 10/29/2013 03/25/2015 Postmenopausal atrophic vaginitis 05/15/2012 06/01/2016 Acute gastritis without mention of hemorrhage 06/01/2016 CKD (Chronic Kidney Disease) Stage 3, GFR 30-59 ml/min 04/09/2010 09/09/2014 GASTRITIS ACUTE( With Hemorrhage) 12/13/2008 06/01/2016 DM Renal Manif Type II, Uncontrolled 01/19/2006 06/10/2014 Overview: 1994 HYPERLIPIDEMIA NEC/NOS 07/26/2005 5 Allergic rhinitis, cause unspecified 06/01/2016 Unspecified cardiovascular disease 06/01/2016 Morbid obesity 12/24/2014 Trigeminal nerve disorder, unspecified 06/01/2016 Abdominal pain, right upper quadrant 05/15/2012 documented as of this encounter (statuses as of 03/08/2022) [facility] History of Past illness Narrative* Problem Noted Date Resolved Date Other symptoms involving digestive system(787.99 ) 03/06/2015 03/06/2015 Diabetes mellitus type 2, controlled, without co mplications 12/24/2014 01/27/2016 BMI 50.0-59.9, adult 10/29/2013 03/25/2015 Postmenopausal atrophic vaginitis 05/15/2012 06/01/2016 Acute gastritis without mention of hemorrhage 06/01/2016 CKD (Chronic Kidney Disease) Stage 3, GFR 30-59 ml/min 04/09/2010 09/09/2014 GASTRITIS ACUTE( With Hemorrhage) 12/13/2008 06/01/2016 DM Renal Manif Type II, Uncontrolled 01/19/2006 06/10/2014 Overview: 1994 HYPERLIPIDEMIA NEC/NOS 07/26/2005 5 Allergic rhinitis, cause unspecified 06/01/2016 Unspecified cardiovascular disease 06/01/2016 Morbid obesity 12/24/2014 Trigeminal nerve disorder, unspecified 06/01/2016 Abdominal pain, right upper quadrant 05/15/2012 documented as of this encounter (statuses as of 04/05/2022) [facility] of Past illness Narrative* Problem Noted Date Resolved Date Other symptoms involving digestive system(787.99 ) 03/06/2015 03/06/2015 Diabetes mellitus type 2, controlled, without co mplications 12/24/2014 01/27/2016 BMI 50.0-59.9, adult 10/29/2013 03/25/2015 Postmenopausal atrophic vaginitis 05/15/2012 06/01/2016 Acute gastritis without mention of hemorrhage 06/01/2016 CKD (Chronic Kidney Disease) Stage 3, GFR 30-59 ml/min 04/09/2010 09/09/2014 GASTRITIS ACUTE( With Hemorrhage) 12/13/2008 06/01/2016 DM Renal Manif Type II, Uncontrolled 01/19/2006 06/10/2014 Overview: 1994 HYPERLIPIDEMIA NEC/NOS 07/26/2005 5 Allergic rhinitis, cause unspecified 06/01/2016 Unspecified cardiovascular disease 06/01/2016 Morbid obesity 12/24/2014 Trigeminal nerve disorder, unspecified 06/01/2016 Abdominal pain, right upper quadrant 05/15/2012 documented as of this encounter (statuses as of 04/27/2022) [facility] Past illness Narrative* Problem Noted Date Resolved Date Other symptoms involving digestive system(787.99 ) 03/06/2015 03/06/2015 Diabetes mellitus type 2, controlled, without co mplications 12/24/2014 01/27/2016 BMI 50.0-59.9, adult 10/29/2013 03/25/2015 Postmenopausal atrophic vaginitis 05/15/2012 06/01/2016 Acute gastritis without mention of hemorrhage 06/01/2016 CKD (Chronic Kidney Disease) Stage 3, GFR 30-59 ml/min 04/09/2010 09/09/2014 GASTRITIS ACUTE( With Hemorrhage) 12/13/2008 06/01/2016 DM Renal Manif Type II, Uncontrolled 01/19/2006 06/10/2014 Overview: 1994 HYPERLIPIDEMIA NEC/NOS 07/26/2005 5 Allergic rhinitis, cause unspecified 06/01/2016 Unspecified cardiovascular disease 06/01/2016 Morbid obesity 12/24/2014 Trigeminal nerve disorder, unspecified 06/01/2016 Abdominal pain, right upper quadrant 05/15/2012 documented as of this encounter (statuses as of 04/27/2022) [facility] Narrative* Problem Noted Date Resolved Date Other symptoms involving digestive system(787.99 ) 03/06/2015 03/06/2015 Diabetes mellitus type 2, controlled, without co mplications 12/24/2014 01/27/2016 BMI 50.0-59.9, adult 10/29/2013 03/25/2015 Postmenopausal atrophic vaginitis 05/15/2012 06/01/2016 Acute gastritis without mention of hemorrhage 06/01/2016 CKD (Chronic Kidney Disease) Stage 3, GFR 30-59 ml/min 04/09/2010 09/09/2014 GASTRITIS ACUTE( With Hemorrhage) 12/13/2008 06/01/2016 DM Renal Manif Type II, Uncontrolled 01/19/2006 06/10/2014 Overview: 1994 HYPERLIPIDEMIA NEC/NOS 07/26/2005 5 Allergic rhinitis, cause unspecified 06/01/2016 Unspecified cardiovascular disease 06/01/2016 Morbid obesity 12/24/2014 Trigeminal nerve disorder, unspecified 06/01/2016 Abdominal pain, right upper quadrant 05/15/2012 documented as of this encounter (statuses as of 04/28/2022) [facility] Narrative* Problem Noted Date Resolved Date Other symptoms involving digestive system(787.99 ) 03/06/2015 03/06/2015 Diabetes mellitus type 2, controlled, without co mplications 12/24/2014 01/27/2016 BMI 50.0-59.9, adult 10/29/2013 03/25/2015 Postmenopausal atrophic vaginitis 05/15/2012 06/01/2016 Acute gastritis without mention of hemorrhage 06/01/2016 CKD (Chronic Kidney Disease) Stage 3, GFR 30-59 ml/min 04/09/2010 09/09/2014 GASTRITIS ACUTE( With Hemorrhage) 12/13/2008 06/01/2016 DM Renal Manif Type II, Uncontrolled 01/19/2006 06/10/2014 Overview: 1994 HYPERLIPIDEMIA NEC/NOS 07/26/2005 5 Allergic rhinitis, cause unspecified 06/01/2016 Unspecified cardiovascular disease 06/01/2016 Morbid obesity 12/24/2014 Trigeminal nerve disorder, unspecified 06/01/2016 Abdominal pain, right upper quadrant 05/15/2012 documented as of this encounter (statuses as of 04/29/2022) [facility] Narrative* Problem Noted Date Resolved Date Other symptoms involving digestive system(787.99 ) 03/06/2015 03/06/2015 Diabetes mellitus type 2, controlled, without co mplications 12/24/2014 01/27/2016 BMI 50.0-59.9, adult 10/29/2013 03/25/2015 Postmenopausal atrophic vaginitis 05/15/2012 06/01/2016 Acute gastritis without mention of hemorrhage 06/01/2016 CKD (Chronic Kidney Disease) Stage 3, GFR 30-59 ml/min 04/09/2010 09/09/2014 GASTRITIS ACUTE( With Hemorrhage) 12/13/2008 06/01/2016 DM Renal Manif Type II, Uncontrolled 01/19/2006 06/10/2014 Overview: 1994 HYPERLIPIDEMIA NEC/NOS 07/26/2005 5 Allergic rhinitis, cause unspecified 06/01/2016 Unspecified cardiovascular disease 06/01/2016 Morbid obesity 12/24/2014 Trigeminal nerve disorder, unspecified 06/01/2016 Abdominal pain, right upper quadrant 05/15/2012 documented as of this encounter (statuses as of 04/29/2022) [facility] Narrative* Problem Noted Date Resolved Date Other symptoms involving digestive system(787.99 ) 03/06/2015 03/06/2015 Diabetes mellitus type 2, controlled, without co mplications 12/24/2014 01/27/2016 BMI 50.0-59.9, adult 10/29/2013 03/25/2015 Postmenopausal atrophic vaginitis 05/15/2012 06/01/2016 Acute gastritis without mention of hemorrhage 06/01/2016 CKD (Chronic Kidney Disease) Stage 3, GFR 30-59 ml/min 04/09/2010 09/09/2014 GASTRITIS ACUTE( With Hemorrhage) 12/13/2008 06/01/2016 DM Renal Manif Type II, Uncontrolled 01/19/2006 06/10/2014 Overview: 1994 HYPERLIPIDEMIA NEC/NOS 07/26/2005 5 Allergic rhinitis, cause unspecified 06/01/2016 Unspecified cardiovascular disease 06/01/2016 Morbid obesity 12/24/2014 Trigeminal nerve disorder, unspecified 06/01/2016 Abdominal pain, right upper quadrant 05/15/2012 documented as of this encounter (statuses as of 05/03/2022) [facility] Narrative* Problem Noted Date Resolved Date Other symptoms involving digestive system(787.99 ) 03/06/2015 03/06/2015 Diabetes mellitus type 2, controlled, without co mplications 12/24/2014 01/27/2016 BMI 50.0-59.9, adult 10/29/2013 03/25/2015 Postmenopausal atrophic vaginitis 05/15/2012 06/01/2016 Acute gastritis without mention of hemorrhage 06/01/2016 CKD (Chronic Kidney Disease) Stage 3, GFR 30-59 ml/min 04/09/2010 09/09/2014 GASTRITIS ACUTE( With Hemorrhage) 12/13/2008 06/01/2016 DM Renal Manif Type II, Uncontrolled 01/19/2006 06/10/2014 Overview: 1994 HYPERLIPIDEMIA NEC/NOS 07/26/2005 5 Allergic rhinitis, cause unspecified 06/01/2016 Unspecified cardiovascular disease 06/01/2016 Morbid obesity 12/24/2014 Trigeminal nerve disorder, unspecified 06/01/2016 Abdominal pain, right upper quadrant 05/15/2012 documented as of this encounter (statuses as of 05/04/2022) [facility] Narrative* Problem Noted Date Resolved Date Other symptoms involving digestive system(787.99 ) 03/06/2015 03/06/2015 Diabetes mellitus type 2, controlled, without co mplications 12/24/2014 01/27/2016 BMI 50.0-59.9, adult 10/29/2013 03/25/2015 Postmenopausal atrophic vaginitis 05/15/2012 06/01/2016 Acute gastritis without mention of hemorrhage 06/01/2016 CKD (Chronic Kidney Disease) Stage 3, GFR 30-59 ml/min 04/09/2010 09/09/2014 GASTRITIS ACUTE( With Hemorrhage) 12/13/2008 06/01/2016 DM Renal Manif Type II, Uncontrolled 01/19/2006 06/10/2014 Overview: 1995 HYPERLIPIDEMIA NEC/NOS 07/26/2005 5 Allergic rhinitis, cause unspecified 06/01/2016 Unspecified cardiovascular disease 06/01/2016 Morbid obesity 12/24/2014 Trigeminal nerve disorder, unspecified 06/01/2016 Abdominal pain, right upper quadrant 05/15/2012 documented as of this encounter (statuses as of 05/26/2022) [facility]arr[facility]* Problem Noted Date Resolved Date Other symptoms involving digestive system(787.99 ) 03/06/2015 03/06/2015 Diabetes mellitus type 2, controlled, without co mplications 12/24/2014 01/27/2016 BMI 50.0-59.9, adult 10/29/2013 03/25/2015 Postmenopausal atrophic vaginitis 05/15/2012 06/01/2016 Acute gastritis without mention of hemorrhage 06/01/2016 CKD (Chronic Kidney Disease) Stage 3, GFR 30-59 ml/min 04/09/2010 09/09/2014 GASTRITIS ACUTE( With Hemorrhage) 12/13/2008 06/01/2016 DM Renal Manif Type II, Uncontrolled 01/19/2006 06/10/2014 Overview: 1994 HYPERLIPIDEMIA NEC/NOS 07/26/2005 5 Allergic rhinitis, cause unspecified 06/01/2016 Unspecified cardiovascular disease 06/01/2016 Morbid obesity 12/24/2014 Trigeminal nerve disorder, unspecified 06/01/2016 Abdominal pain, right upper quadrant 05/15/2012 documented as of this encounter (statuses as of 05/27/2022) [facility] History of Past illness Narrative* Problem Noted Date Resolved Date Other symptoms involving digestive system(787.99 ) 03/06/2015 03/06/2015 Diabetes mellitus type 2, controlled, without co mplications 12/24/2014 01/27/2016 BMI 50.0-59.9, adult 10/29/2013 03/25/2015 Postmenopausal atrophic vaginitis 05/15/2012 06/01/2016 Acute gastritis without mention of hemorrhage 06/01/2016 CKD (Chronic Kidney Disease) Stage 3, GFR 30-59 ml/min 04/09/2010 09/09/2014 GASTRITIS ACUTE( With Hemorrhage) 12/13/2008 06/01/2016 DM Renal Manif Type II, Uncontrolled 01/19/2006 06/10/2014 Overview: 1994 HYPERLIPIDEMIA NEC/NOS 07/26/2005 5 Allergic rhinitis, cause unspecified 06/01/2016 Unspecified cardiovascular disease 06/01/2016 Morbid obesity 12/24/2014 Trigeminal nerve disorder, unspecified 06/01/2016 Abdominal pain, right upper quadrant 05/15/2012 documented as of this encounter (statuses as of 06/01/2022) [facility] History of Past illness Narrative* Problem Noted Date Resolved Date Other symptoms involving digestive system(787.99 ) 03/06/2015 03/06/2015 Diabetes mellitus type 2, controlled, without co mplications 12/24/2014 01/27/2016 BMI 50.0-59.9, adult 10/29/2013 03/25/2015 Postmenopausal atrophic vaginitis 05/15/2012 06/01/2016 Acute gastritis without mention of hemorrhage 06/01/2016 CKD (Chronic Kidney Disease) Stage 3, GFR 30-59 ml/min 04/09/2010 09/09/2014 GASTRITIS ACUTE( With Hemorrhage) 12/13/2008 06/01/2016 DM Renal Manif Type II, Uncontrolled 01/19/2006 06/10/2014 Overview: 1994 HYPERLIPIDEMIA NEC/NOS 07/26/2005 5 Allergic rhinitis, cause unspecified 06/01/2016 Unspecified cardiovascular disease 06/01/2016 Morbid obesity 12/24/2014 Trigeminal nerve disorder, unspecified 06/01/2016 Abdominal pain, right upper quadrant 05/15/2012 documented as of this encounter (statuses as of 06/01/2022) [facility] History of Past illness Narrative* Problem Noted Date Resolved Date Other symptoms involving digestive system(787.99 ) 03/06/2015 03/06/2015 Diabetes mellitus type 2, controlled, without co mplications 12/24/2014 01/27/2016 BMI 50.0-59.9, adult 10/29/2013 03/25/2015 Postmenopausal atrophic vaginitis 05/15/2012 06/01/2016 Acute gastritis without mention of hemorrhage 06/01/2016 CKD (Chronic Kidney Disease) Stage 3, GFR 30-59 ml/min 04/09/2010 09/09/2014 GASTRITIS ACUTE( With Hemorrhage) 12/13/2008 06/01/2016 DM Renal Manif Type II, Uncontrolled 01/19/2006 06/10/2014 Overview: 1994 HYPERLIPIDEMIA NEC/NOS 07/26/2005 5 Allergic rhinitis, cause unspecified 06/01/2016 Unspecified cardiovascular disease 06/01/2016 Morbid obesity 12/24/2014 Trigeminal nerve disorder, unspecified 06/01/2016 Abdominal pain, right upper quadrant 05/15/2012 documented as of this encounter (statuses as of 06/04/2022) [facility] of Past illness Narrative* Problem Noted Date Resolved Date Other symptoms involving digestive system(787.99 ) 03/06/2015 03/06/2015 Diabetes mellitus type 2, controlled, without co mplications 12/24/2014 01/27/2016 BMI 50.0-59.9, adult 10/29/2013 03/25/2015 Postmenopausal atrophic vaginitis 05/15/2012 06/01/2016 Acute gastritis without mention of hemorrhage 06/01/2016 CKD (Chronic Kidney Disease) Stage 3, GFR 30-59 ml/min 04/09/2010 09/09/2014 GASTRITIS ACUTE( With Hemorrhage) 12/13/2008 06/01/2016 DM Renal Manif Type II, Uncontrolled 01/19/2006 06/10/2014 Overview: 1994 HYPERLIPIDEMIA NEC/NOS 07/26/2005 5 Allergic rhinitis, cause unspecified 06/01/2016 Unspecified cardiovascular disease 06/01/2016 Morbid obesity 12/24/2014 Trigeminal nerve disorder, unspecified 06/01/2016 Abdominal pain, right upper quadrant 05/15/2012 documented as of this encounter (statuses as of 06/28/2022) [facility] of Past illness Narrative* Problem Noted Date Resolved Date Other symptoms involving digestive system(787.99 ) 03/06/2015 03/06/2015 Diabetes mellitus type 2, controlled, without co mplications 12/24/2014 01/27/2016 BMI 50.0-59.9, adult 10/29/2013 03/25/2015 Postmenopausal atrophic vaginitis 05/15/2012 06/01/2016 Acute gastritis without mention of hemorrhage 06/01/2016 CKD (Chronic Kidney Disease) Stage 3, GFR 30-59 ml/min 04/09/2010 09/09/2014 GASTRITIS ACUTE( With Hemorrhage) 12/13/2008 06/01/2016 DM Renal Manif Type II, Uncontrolled 01/19/2006 06/10/2014 Overview: 1994 HYPERLIPIDEMIA NEC/NOS 07/26/2005 5 Allergic rhinitis, cause unspecified 06/01/2016 Unspecified cardiovascular disease 06/01/2016 Morbid obesity 12/24/2014 Trigeminal nerve disorder, unspecified 06/01/2016 Abdominal pain, right upper quadrant 05/15/2012 documented as of this encounter (statuses as of 07/08/2022) [facility] of Past illness Narrative* Problem Noted Date Resolved Date Other symptoms involving digestive system(787.99 ) 03/06/2015 03/06/2015 Diabetes mellitus type 2, controlled, without co mplications 12/24/2014 01/27/2016 BMI 50.0-59.9, adult 10/29/2013 03/25/2015 Postmenopausal atrophic vaginitis 05/15/2012 06/01/2016 Acute gastritis without mention of hemorrhage 06/01/2016 CKD (Chronic Kidney Disease) Stage 3, GFR 30-59 ml/min 04/09/2010 09/09/2014 GASTRITIS ACUTE( With Hemorrhage) 12/13/2008 06/01/2016 DM Renal Manif Type II, Uncontrolled 01/19/2006 06/10/2014 Overview: 1994 HYPERLIPIDEMIA NEC/NOS 07/26/2005 5 Allergic rhinitis, cause unspecified 06/01/2016 Unspecified cardiovascular disease 06/01/2016 Morbid obesity 12/24/2014 Trigeminal nerve disorder, unspecified 06/01/2016 Abdominal pain, right upper quadrant 05/15/2012 documented as of this encounter (statuses as of 07/09/2022) [facility] History of Past illness Narrative* Problem Noted Date Resolved Date Other symptoms involving digestive system(787.99 ) 03/06/2015 03/06/2015 Diabetes mellitus type 2, controlled, without co mplications 12/24/2014 01/27/2016 BMI 50.0-59.9, adult 10/29/2013 03/25/2015 Postmenopausal atrophic vaginitis 05/15/2012 06/01/2016 Acute gastritis without mention of hemorrhage 06/01/2016 CKD (Chronic Kidney Disease) Stage 3, GFR 30-59 ml/min 04/09/2010 09/09/2014 GASTRITIS ACUTE( With Hemorrhage) 12/13/2008 06/01/2016 DM Renal Manif Type II, Uncontrolled 01/19/2006 06/10/2014 Overview: 1994 HYPERLIPIDEMIA NEC/NOS 07/26/2005 5 Allergic rhinitis, cause unspecified 06/01/2016 Unspecified cardiovascular disease 06/01/2016 Morbid obesity 12/24/2014 Trigeminal nerve disorder, unspecified 06/01/2016 Abdominal pain, right upper quadrant 05/15/2012 documented as of this encounter (statuses as of 08/05/2022) [facility] History of Past illness Narrative* Problem Noted Date Resolved Date Other symptoms involving digestive system(787.99 ) 03/06/2015 03/06/2015 Diabetes mellitus type 2, controlled, without co mplications 12/24/2014 01/27/2016 BMI 50.0-59.9, adult 10/29/2013 03/25/2015 Postmenopausal atrophic vaginitis 05/15/2012 06/01/2016 Acute gastritis without mention of hemorrhage 06/01/2016 CKD (Chronic Kidney Disease) Stage 3, GFR 30-59 ml/min 04/09/2010 09/09/2014 GASTRITIS ACUTE( With Hemorrhage) 12/13/2008 06/01/2016 DM Renal Manif Type II, Uncontrolled 01/19/2006 06/10/2014 Overview: 1994 HYPERLIPIDEMIA NEC/NOS 07/26/2005 5 Allergic rhinitis, cause unspecified 06/01/2016 Unspecified cardiovascular disease 06/01/2016 Morbid obesity 12/24/2014 Trigeminal nerve disorder, unspecified 06/01/2016 Abdominal pain, right upper quadrant 05/15/2012 documented as of this encounter (statuses as of 08/25/2022) [facility] History of Past illness Narrative* Problem Noted Date Diagnosed Date Resolved Date Other symptoms involving dig estive system(787.99) 03/06/2015 03/06/2015 Diabetes mellitus type 2, co ntrolled, without complications 12/24/2014 01/27/2016 BMI 50.0-59.9, adult 10/29/2013 015 Postmenopausal atrophic vaginitis 05/15/2012 06/01/2016 Acute gastritis without mention of hemorrhage 12/02/1906/01/2016 CKD (Chronic Kidney Disease) Stage 3, GFR 30-59 ml/min 04/09/2010 09/09/2014 GASTRITIS ACUTE( With Hemorrhage) 12/13/2008 06/01/2016 DM Renal Manif Type II, Uncontrolled 01/19/2006 06/10/2014 Overview: 1994 HYPERLIPIDEMIA NEC/NOS 07/26/200506/30 Allergic rhinitis, cause unspecified 06/01/2016 Unspecified cardiovascular disease 06/01/2016 Morbid obesity 12/24/2014 Trigeminal nerve disorder, unspecified 06/01/2016 Abdominal pain, right upper quadrant 05/15/2012 documented as of this encounter (statuses as of 07/04/2023) [facility] note* Diagnosis Class 3 severe obesity with body mass index (BMI) of 50.0 to 59.9 in adult, unspecified obesity type, unspecified whether serious comorbidity present (HCC)- Primary BATSHEVA (obstructive sleep apnea) Obstructive sleep apnea (adult) (pediatric) Type 2 diabetes (HCC) ASCVD (arteriosclerotic cardiovascular disease) Unspecified cardiovascular disease Hypertension, unspecified type Stage 3a chronic kidney disease (HCC) Memory loss documented in this encounter [facility] note* Diagnosis Dietary counseling and surveillance Dietary surveillance and counseling documented in this encounter [facility] note* Diagnosis Class 3 severe obesity with body mass index (BMI) of 50.0 to 59.9 in adult, unspecified obesity type, unspecified whether serious comorbidity present (HCC) documented in this encounter [facility] note* Diagnosis Psychological factors affecting medical condition- Primary Psychic factors associated with diseases classified elsewhere Class 3 severe obesity with serious comorbidity and body mass index (BMI) of 50.0 to 59.9 in adult, unspecified obesity type (HCC) Mild cognitive impairment Mild cognitive impairment, so stated documented in this encounter [facility] note* Diagnosis Class 3 severe obesity due to excess calories with serious comorbidity and body mass index (BMI) of 50.0 to 59.9 in adult (HCC)- Primary documented in this encounter [facility] note* Diagnosis Class 3 severe obesity due to excess calories with serious comorbidity and body mass index (BMI) of 50.0 to 59.9 in adult ([facility])- Primary BATSHEVA on CPAP Obstructive sleep apnea (adult) (pediatric) NAFLD (nonalcoholic fatty liver disease) Other chronic nonalcoholic liver disease Type 2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with other specified complication, with long-term current use of insulin (HCC) documented in this encounter [facility] note* Diagnosis Class 3 severe obesity due to excess calories with serious comorbidity and body mass index (BMI) of 50.0 to 59.9 in adult (HCC) documented in this encounter [facility] note* Diagnosis Class 3 severe obesity due to excess calories with serious comorbidity and body mass index (BMI) of 50.0 to 59.9 in adult ([facility])- Primary BATSHEVA on CPAP Obstructive sleep apnea (adult) (pediatric) ASCVD (arteriosclerotic cardiovascular disease) Unspecified cardiovascular disease Stage 3a chronic kidney disease (HCC) Mild cognitive impairment Mild cognitive impairment, so stated [facility] Diagnosis Class 3 severe obesity due to excess calories with serious comorbidity and body mass index (BMI) of 50.0 to 59.9 in adult ([facility])- Primary [facility] Diagnosis Dietary counseling and surveillance Dietary surveillance and counseling [facility] Diagnosis BATSHEVA treated with BiPAP- Primary Cognitive impairment Unspecified persistent mental disorders due to conditions classified elsewhere Class 3 severe obesity with serious comorbidity and body mass index (BMI) of 50.0 to 59.9 in adult, unspecified obesity type (HCC) Bariatric surgery status [facility] Diagnosis Cognitive deficits- Primary Unspecified persistent mental disorders due to conditions classified elsewhere [facility] Diagnosis Psychological factors affecting medical condition- Primary Psychic factors associated with diseases classified elsewhere Class 3 severe obesity with serious comorbidity and body mass index (BMI) of 50.0 to 59.9 in adult, unspecified obesity type (HCC) Mild cognitive impairment Mild cognitive impairment, so stated [facility] Diagnosis Class 3 severe obesity due to excess calories with serious comorbidity and body mass index (BMI) of 50.0 to 59.9 in adult ([facility])- Primary BATSHEVA on CPAP Obstructive sleep apnea (adult) (pediatric) ASCVD (arteriosclerotic cardiovascular disease) Unspecified cardiovascular disease Mild cognitive impairment Mild cognitive impairment, so stated [facility] Diagnosis Cognitive deficits- Primary Unspecified persistent mental disorders due to conditions classified elsewhere [facility] Diagnosis Class 3 severe obesity due to excess calories with serious comorbidity and body mass index (BMI) of 50.0 to 59.9 in adult ([facility])- Primary [facility] Diagnosis Cognitive deficits- Primary Unspecified persistent mental disorders due to conditions classified elsewhere [facility] Diagnosis Class 3 severe obesity due to excess calories with serious comorbidity and body mass index (BMI) of 50.0 to 59.9 in adult ([facility])- Primary Dietary counseling and surveillance [Z71.3 (ICD-10-CM)] Dietary surveillance and counseling Hypertension, unspecified type Hyperlipidemia, unspecified hyperlipidemia type Type 2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with other specified complication, with long-term current use of insulin (HCC) NAFLD (nonalcoholic fatty liver disease) Other chronic nonalcoholic liver disease BATSHEVA (obstructive sleep apnea) Obstructive sleep apnea (adult) (pediatric) Stage 3a chronic kidney disease (HCC) Gastroesophageal reflux disease, unspecified whether esophagitis present BMI 50.0-59.9, adult (HCC) Body Mass Index 50.0-59.9, adult BATSHEVA on CPAP Obstructive sleep apnea (adult) (pediatric) documented in this encounter [facility] note* Diagnosis Dietary counseling and surveillance [Z71.3 (ICD-10-CM)] Dietary surveillance and counseling Class 3 severe obesity due to excess calories with serious comorbidity and body mass index (BMI) of 50.0 to 59.9 in adult (HCC) Type 2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with other specified complication, with long-term current use of insulin (HCC) documented in this encounter [facility] note* Diagnosis Dietary counseling and surveillance [Z71.3 (ICD-10-CM)] Dietary surveillance and counseling Class 3 severe obesity due to excess calories with serious comorbidity and body mass index (BMI) of 50.0 to 59.9 in adult (HCC) Type 2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with other specified complication, with long-term current use of insulin (HCC) documented in this encounter [facility] for referral (narrative)* Diagnostic Procedure Only (Routine) - Pending Review Specialty Diagnoses / Procedures Referred By Ashish t Referred To Contact US IMAGING Diagnoses Class 3 severe obesity with body mass index (BMI) of 50.0 to 59.9 in adult, unspecified obesity type, unspecified whether serious comorbidity present (HCC) Procedures US ABD RT UPPER QUADRANT US ABDOMINAL REAL TIME W/IMAGE LIMITED Martine Amin, PRESIDENT [employer]IE[employer]ERCIAL [employer]ICER.[employer] [address] [place] [address] Us Imaging Referral ID Status Reason Start Date Expiration Date Visits Requested Visits Authorized [id number] Pending Review Auto-Generat ed Referral 01/08/2022 02/07/2023 1 1 [facility] for referral (narrative)* Diagnostic Procedure Only (Routine) - Closed Specialty Diagnoses / Procedures Referred By Contac t Referred To Contact US IMAGING Diagnoses Class 3 severe obesity with body mass index (BMI) of 50.0 to 59.9 in adult, unspecified obesity type, unspecified whether serious comorbidity present (HCC) Procedures US ABD RT UPPER QUADRANT US ABDOMINAL REAL TIME W/IMAGE LIMITED Martine Amin, CORI.[employer] SH[employer] MANAGER [address] [place] [address] Us Imaging Referral ID Status Reason Start Date Expiration Date V isits Requested Visits Authorized [id number] Closed Auto-Generate d Referral 01/08/2022 02/07/2023 1 1 [facility] for referral (narrative)* Diagnostic Procedure Only (Routine) - Authorized Specialty Diagnoses / Procedures Referred By Contac t Referred To Contact XR IMAGING Diagnoses Class 3 severe obesity due to excess calories with serious comorbidity and body mass index (BMI) of 50.0 to 59.9 in adult (HCC) Procedures XR UPPER GI ROUTINE DOUBLE CONTRAST/AIR RADIOLOGIC EXAM UPR GI TRC DOUBLE CONTRAST STUDY Sandra Calle MD [address] [address] Xr Imaging Referral ID Status Reason Start Date Expiration Date Visits Requested Visits Authorized [id number] Authorized Auto-Generat ed Referral 02/12/2022 03/14/2023 1 1 [facility] for referral (narrative)* Diagnostic Procedure Only (Routine) - Closed Specialty Diagnoses / Procedures Referred By Contac t Referred To Contact XR IMAGING Diagnoses Class 3 severe obesity due to excess calories with serious comorbidity and body mass index (BMI) of 50.0 to 59.9 in adult (HCC) Procedures XR UPPER GI ROUTINE DOUBLE CONTRAST/AIR RADIOLOGIC EXAM UPR GI TRC DOUBLE CONTRAST STUDY Sandra Calle MD 1 [facility] [address] [place] [address] Xr Imaging Referral ID Status Reason Start Date Expiration Date V isits Requested Visits Authorized [id number] Closed Auto-Generate d Referral 02/12/2022 03/14/2023 1 1 [facility] for visit Narrative* Diagnostic Procedure Only (Routine) - Closed Specialty Diagnoses / Procedures Referred By Contac t Referred To Contact XR IMAGING Diagnoses Class 3 severe obesity due to excess calories with serious comorbidity and body mass index (BMI) of 50.0 to 59.9 in adult (HCC) Procedures XR UPPER GI ROUTINE DOUBLE CONTRAST/AIR RADIOLOGIC EXAM UPR GI TRC DOUBLE CONTRAST STUDY Sandra Calle MD 1 [facility] [address] [place] [id number] Xr Imaging Referral ID Status Reason Start Date Expiration Date V isits Requested Visits Authorized [id number] Closed Auto-Generate d Referral 02/12/2022 03/14/2023 1 1 [facility] Summary Purpose Family History No Family History Records FoundNo Family History Records FoundNo Family History Records FoundNo Family History Records Found Advance Directives No Advanced Directives Records FoundNo Advanced Directives Records FoundNo Advanced Directives Records FoundNo Advanced Directives Records Found Additional Source Comments INFORMATION SOURCE (unrecogn ized section and content) DATE CREATED AUTHOR AUTHOR'S ORGANIZ ATION 12/24/2021 [facility] DATE CREATED AUTHOR AUTHOR'S ORGANIZ ATION 07/12/2022 [facility] DATE CREATED AUTHOR AUTHOR'S ORGANIZ ATION 07/24/2023 [facility] Source Comments (unrecognize d section and content) In the event this informatio n is protected by the Federal Confidentiality of Alcohol and Drug Abuse Patient Records regulations: The Federal rules restrict any use of the information to criminally investigate or prosecute any alcohol or drug abuse patient.[facility] event this information is protected by the Federal Confidentiality of Alcohol and Drug Abuse Patient Records regulations: The Federal rules restrict any use of the information to criminally investigate or prosecute any alcohol or drug abuse patient.[facility] the event this information is protected by the Federal Confidentiality of Alcohol and Drug Abuse Patient Records regulations: The Federal rules restrict any use of the information to criminally investigate or prosecute any alcohol or drug abuse patient.[facility] the event this information is protected by the Federal Confidentiality of Alcohol and Drug Abuse Patient Records regulations: The Federal rules restrict any use of the information to criminally investigate or prosecute any alcohol or drug abuse patient.[facility] the event this information is protected by the Federal Confidentiality of Alcohol and Drug Abuse Patient Records regulations: The Federal rules restrict any use of the information to criminally investigate or prosecute any alcohol or drug abuse patient.[facility] the event this information is protected by the Federal Confidentiality of Alcohol and Drug Abuse Patient Records regulations: The Federal rules restrict any use of the information to criminally investigate or prosecute any alcohol or drug abuse patient.[facility] the event this information is protected by the Federal Confidentiality of Alcohol and Drug Abuse Patient Records regulations: The Federal rules restrict any use of the information to criminally investigate or prosecute any alcohol or drug abuse patient.[facility] the event this information is protected by the Federal Confidentiality of Alcohol and Drug Abuse Patient Records regulations: The Federal rules restrict any use of the information to criminally investigate or prosecute any alcohol or drug abuse patient.[facility] the event this information is protected by the Federal Confidentiality of Alcohol and Drug Abuse Patient Records regulations: The Federal rules restrict any use of the information to criminally investigate or prosecute any alcohol or drug abuse patient.[facility] the event this information is protected by the Federal Confidentiality of Alcohol and Drug Abuse Patient Records regulations: The Federal rules restrict any use of the information to criminally investigate or prosecute any alcohol or drug abuse patient.[facility] the event this information is protected by the Federal Confidentiality of Alcohol and Drug Abuse Patient Records regulations: The Federal rules restrict any use of the information to criminally investigate or prosecute any alcohol or drug abuse patient.[facility] the event this information is protected by the Federal Confidentiality of Alcohol and Drug Abuse Patient Records regulations: The Federal rules restrict any use of the information to criminally investigate or prosecute any alcohol or drug abuse patient.[facility] the event this information is protected by the Federal Confidentiality of Alcohol and Drug Abuse Patient Records regulations: The Federal rules restrict any use of the information to criminally investigate or prosecute any alcohol or drug abuse patient.[facility] the event this information is protected by the Federal Confidentiality of Alcohol and Drug Abuse Patient Records regulations: The Federal rules restrict any use of the information to criminally investigate or prosecute any alcohol or drug abuse patient.[facility] the event this information is protected by the Federal Confidentiality of Alcohol and Drug Abuse Patient Records regulations: The Federal rules restrict any use of the information to criminally investigate or prosecute any alcohol or drug abuse patient.[facility] HospitalIn the event this information is protected by the Federal Confidentiality of Alcohol and Drug Abuse Patient Records regulations: The Federal rules restrict any use of the information to criminally investigate or prosecute any alcohol or drug abuse patient.[facility] HospitalIn the event this information is protected by the Federal Confidentiality of Alcohol and Drug Abuse Patient Records regulations: The Federal rules restrict any use of the information to criminally investigate or prosecute any alcohol or drug abuse patient.[facility] HospitalIn the event this information is protected by the Federal Confidentiality of Alcohol and Drug Abuse Patient Records regulations: The Federal rules restrict any use of the information to criminally investigate or prosecute any alcohol or drug abuse patient.[facility] HospitalIn the event this information is protected by the Federal Confidentiality of Alcohol and Drug Abuse Patient Records regulations: The Federal rules restrict any use of the information to criminally investigate or prosecute any alcohol or drug abuse patient.[facility] HospitalIn the event this information is protected by the Federal Confidentiality of Alcohol and Drug Abuse Patient Records regulations: The Federal rules restrict any use of the information to criminally investigate or prosecute any alcohol or drug abuse patient.[facility] HospitalIn the event this information is protected by the Federal Confidentiality of Alcohol and Drug Abuse Patient Records regulations: The Federal rules restrict any use of the information to criminally investigate or prosecute any alcohol or drug abuse patient.[facility] HospitalIn the event this information is protected by the Federal Confidentiality of Alcohol and Drug Abuse Patient Records regulations: The Federal rules restrict any use of the information to criminally investigate or prosecute any alcohol or drug abuse patient.[facility] HospitalIn the event this information is protected by the Federal Confidentiality of Alcohol and Drug Abuse Patient Records regulations: The Federal rules restrict any use of the information to criminally investigate or prosecute any alcohol or drug abuse patient.[facility] HospitalIn the event this information is protected by the Federal Confidentiality of Alcohol and Drug Abuse Patient Records regulations: The Federal rules restrict any use of the information to criminally investigate or prosecute any alcohol or drug abuse patient.[facility] HospitalIn the event this information is protected by the Federal Confidentiality of Alcohol and Drug Abuse Patient Records regulations: The Federal rules restrict any use of the information to criminally investigate or prosecute any alcohol or drug abuse patient.[facility] HospitalIn the event this information is protected by the Federal Confidentiality of Alcohol and Drug Abuse Patient Records regulations: The Federal rules restrict any use of the information to criminally investigate or prosecute any alcohol or drug abuse patient.[facility] HospitalIn the event this information is protected by the Federal Confidentiality of Alcohol and Drug Abuse Patient Records regulations: The Federal rules restrict any use of the information to criminally investigate or prosecute any alcohol or drug abuse patient.[facility] HospitalIn the event this information is protected by the Federal Confidentiality of Alcohol and Drug Abuse Patient Records regulations: The Federal rules restrict any use of the information to criminally investigate or prosecute any alcohol or drug abuse patient.[facility] HospitalIn the event this information is protected by the Federal Confidentiality of Alcohol and Drug Abuse Patient Records regulations: The Federal rules restrict any use of the information to criminally investigate or prosecute any alcohol or drug abuse patient.[facility] HospitalIn the event this information is protected by the Federal Confidentiality of Alcohol and Drug Abuse Patient Records regulations: The Federal rules restrict any use of the information to criminally investigate or prosecute any alcohol or drug abuse patient.[facility] HospitalIn the event this information is protected by the Federal Confidentiality of Alcohol and Drug Abuse Patient Records regulations: The Federal rules restrict any use of the information to criminally investigate or prosecute any alcohol or drug abuse patient.[facility] HospitalIn the event this information is protected by the Federal Confidentiality of Alcohol and Drug Abuse Patient Records regulations: The Federal rules restrict any use of the information to criminally investigate or prosecute any alcohol or drug abuse patient.[facility] HospitalIn the event this information is protected by the Federal Confidentiality of Alcohol and Drug Abuse Patient Records regulations: The Federal rules restrict any use of the information to criminally investigate or prosecute any alcohol or drug abuse patient.[facility] HospitalIn the event this information is protected by the Federal Confidentiality of Alcohol and Drug Abuse Patient Records regulations: The Federal rules restrict any use of the information to criminally investigate or prosecute any alcohol or drug abuse patient.[facility] HospitalIn the event this information is protected by the Federal Confidentiality of Alcohol and Drug Abuse Patient Records regulations: The Federal rules restrict any use of the information to criminally investigate or prosecute any alcohol or drug abuse patient.[facility] HospitalIn the event this information is protected by the Federal Confidentiality of Alcohol and Drug Abuse Patient Records regulations: The Federal rules restrict any use of the information to criminally investigate or prosecute any alcohol or drug abuse patient.[facility] Reason for Visit (unrecogniz ed section and content) Reason Comments Scheduling Reason Comments New Patient Evaluation Reason Comments Medical Clearance Reason Comments Patient Update Outside records Reason Comments Nutrition Counseling Reason Comments Appointment Called and spoke to PT about disclosure statement sent to [email or web address]. [email or web address] advise will see daughter tomorrow that will help her Reason Comments Radiology US Specialty Diagnoses / Procedures Referred By Ashish silva Referred To Contact US IMAGING Diagnoses Class 3 severe obesity with body mass index (BMI) of 50.0 to 59.9 in adult, unspecified obesity type, unspecified whether serious comorbidity present (HCC) Procedures US ABD RT UPPER QUADRANT US ABDOMINAL REAL TIME W/IMAGE LIMITED Martine Amin, PRESIDENT AND CHIEF COMMERCIAL OFFICER.[employer] MANAGER [address] [place] [address] Us Imaging Referral ID Status Reason Start Date Expiration Date V isits Requested Visits Authorized [id number] Closed Auto-Generate d Referral 01/08/2022 02/07/2023 1 1 Reason Comments Psychotherapy Evaluation (DX Interview) Reason Comments Established Patient Reason Comments Patient Update MDT recommendations Reason Comments FYI-No Action Needed Sleep studies Reason Comments Sleep Apnea Specialty Diagnoses / Procedures Referred By Ashish silva Referred To Contact Psychology / PSYCHIATRY Diagnoses MCI (mild cognitive impairment) New Patient/MCI/pre&post bariactric process Procedures NEUROBEHAVIORAL STATUS XM PHYS/QHP 1ST HOUR NEUROPSYCHOLOGICAL TST EVAL PHYS/QHP 1ST HOUR NEUROPSYCHOLOGICAL TST EVAL PHYS/QHP EA ADDL HR PSYL/NRPSYCL TST PHYS/QHP 2+ TST 1ST 30 MIN PSYCL/NRPSYCL TST PHYS/QHP 2+ TST EA ADDL 30 MIN TESTING Jacque Balderrama, PhD [address] [place] [address] Bharath Dillon, PhD [address] [place] [address] Referral ID Status Reason Start Date Expiration Date V isits Requested Visits Authorized [id number] Authorized 04/28/2022 09/18/2022 2 2 Reason Comments Psychology Services Reason Comments FYI-No Action Needed Reason Comments Neuropsych Testing Specialty Diagnoses / Procedures Referred By Ashish t Referred To Contact Psychology / PSYCHIATRY Diagnoses MCI (mild cognitive impairment) New Patient/MCI/pre&post bariactric process Procedures NEUROBEHAVIORAL STATUS XM PHYS/QHP 1ST HOUR NEUROPSYCHOLOGICAL TST EVAL PHYS/QHP 1ST HOUR NEUROPSYCHOLOGICAL TST EVAL PHYS/QHP EA ADDL HR PSYL/NRPSYCL TST PHYS/QHP 2+ TST 1ST 30 MIN PSYCL/NRPSYCL TST PHYS/QHP 2+ TST EA ADDL 30 MIN TESTING Jacque Balderrama, PhD [address] [place] [address] Bharath Dillon, PhD [address] [place] [address] Referral ID Status Reason Start Date Expiration Date Visits Re quested Visits Authorized [id number] Closed 04/28/2022 09/18/2022 2 2 Reason Comments Medical Clearance Neurology Reason Comments Appointment Referral ID Status Reason Start Date Expiration Date Visits Re quested Visits Authorized [id number] Closed 04/28/2022 09/18/2022 3 3 Reason Comments Appointment reminder Reason Comments Weight Problem Reason Comments Refill Request Care Teams (unrecognized sec tion and content) Dental Service Technician Relationship Specialty Start Date End Date Nan Almanza DO [address] [place] [address] PCP - General Family Practice 01/11/18 Dental Service Technician Relationship Specialty Start Date End Date Nan Almanza DO [address] [place] [address] PCP - General Family Practice 01/11/18 Art Acevedo [address] [facility] [address] [place], [place] [id number] Cardiology 01/11/22 New Clancy MD [address] [address] Nephrology 01/11/22 Dental Service Technician Relationship Specialty Start Date End Date Blanca, Nan A, DO [address] [place] [address] PCP - General Family Practice 01/11/[address] [place] [address] Cardiology 01/11/22 New Clancy MD [address] [place] [address] Nephrology 01/11/22 Dental Service Technician Relationship Specialty Start Date End Date Nan Almanza DO [address] [place] [address] PCP - General Family Practice 01/11/[address] [place] [address] Cardiology 01/11/22 New Clancy MD [address] [place] [address] Nephrology 01/11/22 Dental Service Technician Relationship Specialty Start Date End Date Nan Almanza DO [address] [place] [address] PCP - General Family Practice 01/11/[address] [place] [address] Cardiology 01/11/22 New Clancy MD [address] [place] [address] Nephrology 01/11/22 Dental Service Technician Relationship Specialty Start Date End Date Nan Almanza DO [address] [place] [address] PCP - General Family Practice 01/11/[address] [place] [address] Cardiology 01/11/22 New Clancy MD [address] [place] [address] Nephrology 01/11/22 Dental Service Technician Relationship Specialty Start Date End Date Nan Almanza DO [address] [place] [address] PCP - General Family Practice 01/11/[address] [facility] [address] [place] [address] Cardiology 01/11/22 New Clancy MD [address] [place] [address] Nephrology 01/11/22 Dental Service Technician Relationship Specialty Start Date End Date Nan Almanza DO [address] [place] [address] PCP - General Family Practice 01/11/[address] [place] [address] Cardiology 01/11/22 New Clancy MD [address] [place] [address] Nephrology 01/11/22 Dental Service Technician Relationship Specialty Start Date End Date Nan Almanza DO [address] [place] [address] PCP - General Family Practice 01/11/[address] [place] [address] Cardiology 01/11/22 New Clancy MD [address] [place] [address] Nephrology 01/11/22 Dental Service Technician Relationship Specialty Start Date End Date Blanca Nan DO Bennett [address] [place] [address] PCP - General Family Practice 01/11/[address] [place] [address] Cardiology 01/11/22 New Clancy MD [address] [place] [address] Nephrology 01/11/22 Dental Service Technician Relationship Specialty Start Date End Date Nan Almanza DO [address] [place] [address] PCP - General Family Practice 01/11/[address] [place] [address] Cardiology 01/11/22 New Clancy MD [address] [place] [address] Nephrology 01/11/22 Dental Service Technician Relationship Specialty Start Date End Date Nan Almanza DO [address] [place] [address] PCP - General Family Practice 01/11/[address] [place] [address] Cardiology 01/11/22 New Clancy MD [address] [place] [address] Nephrology 01/11/22 Dental Service Technician Relationship Specialty Start Date End Date Nan Almanza DO [address] [place] [address] PCP - General Family Practice 01/11/18 [facility] Art [facility] [address] [place] [address] Cardiology 01/11/22 New Clancy MD [address] [place] [address] Nephrology 01/11/22 Dental Service Technician Relationship Specialty Start Date End Date Nan Almanza DO [address] [place] [address] PCP - General Family Practice [facility]/11/18 [facility] [address] [place] [address] Cardiology 01/11/22 New Clancy MD [address] [place] [address] Nephrology 01/11/22 Dental Service Technician Relationship Specialty Start Date End Date Nan Almanza DO [address] [place] [address] PCP - General Family Practice 01/11/18 [facility] [place] [address] [place] [address] Cardiology 01/11/22 New Clancy MD [address] [place] [address] Nephrology 01/11/22 Dental Service Technician Relationship Specialty Start Date End Date Nan Almanza DO [address] [place] [address] PCP - General Family Practice 01/11/18 [facility] Art [address] [place] [address] Cardiology 01/11/22 New Clancy MD [address] [place] [address] Nephrology 01/11/22 Dental Service Technician Relationship Specialty Start Date End Date Nan Almanza DO [address] [place] [address] PCP - General Family Practice 01/11/[address] [place] [address] Cardiology 01/11/22 New Clancy MD [address] [place] [address] Nephrology 01/11/22 Dental Service Technician Relationship Specialty Start Date End Date Nan Almanza DO [address] [place] [address] PCP - General Family Practice 01/11/18 [facility] [address] [place] [address] Cardiology 01/11/22 New Clancy MD [address] [place] [address] Nephrology 01/11/22 Maximilian Osman MD [address] [place] [address] Neurology 05/06/22 Dental Service Technician Relationship Specialty Start Date End Date Nan Almanza DO [address] [place] [address] PCP - General Family Practice 01/11/18 [address]ved[address] [place] [address] Cardiology 01/11/22 New Clancy MD [address] [place] [address] Nephrology 01/11/22 Maximilian Osman MD [address] [place] [address] Neurology 05/06/22 Dental Service Technician Relationship Specialty Start Date End Date Nan Almanza DO [address] [place] [address] PCP - General Family Practice 01/11/18 Art Acevedo [facility] [address] [place] [address] Cardiology 01/11/22 New Clancy MD [address] [place] [address] Nephrology 01/11/22 Maximilian Osman MD [address] [place] [address] Neurology 05/06/22 Dental Service Technician Relationship Specialty Start Date End Date Nan Almanza DO [address] [place] [address] PCP - General Family Medicine 01/11/18 Art Acevedo [address] [place] [address] Cardiology 01/11/22 New Clancy MD [address] [place] [address] Nephrology 01/11/22 Maximilian Osman MD [address] [place] [address] Neurology 05/06/22 Dental Service Technician Relationship Specialty Start Date End Date BlancaNan DO [address] [place] [address] PCP - General Family Medicine 01/11/[address] [place] [address] Cardiology 01/11/22 New Clancy MD [address] [place] [address] Nephrology 01/11/22 Maximilian Osman MD [address] [place] [address] Neurology 05/06/22 Dental Service Technician Relationship Specialty Start Date End Date Nan Almanza DO [address] [place] [address] PCP - General Family Medicine 01/11/18 Art Acevedo [address] [place] [address] Cardiology 01/11/22 New Clancy MD [address] [place] [address] Nephrology 01/11/22 Maximilian Osman MD [address] [place] [address] Neurology 05/06/22 Dental Service Technician Relationship Specialty Start Date End Date Nan Almanza DO [address] [place] [address] PCP - General Family Medicine 01/11/[address] [place] [address] Cardiology 01/11/22 New Clancy MD [address] [place] [address] Nephrology 01/11/22 Maximilian Osman MD [address] [place] [address] Neurology 05/06/22 Dental Service Technician Relationship Specialty Start Date End Date Nan Almanza DO [address] [place] [address] PCP - General Family Medicine 01/11/18 Art Acevedo [address] [place] [address] Cardiology 01/11/22 New Clancy MD [address] [place] [address] Nephrology 01/11/22 Maximilian Osman MD [address] [place], [place] [phone] Neurology 05/06/22 Dental Service Technician Relationship Specialty Start Date End Date Nan Almanza DO [address] [place] [address] PCP - General Family Medicine 01/11/18 Art Acevedo [address] [place] [address] Cardiology 01/11/22 New Clancy MD [address] [place] [address] Nephrology 01/11/22 Maximilian Osman MD [address] [place] [address] Neurology 05/06/22 FOR RECORDS PERTAINING TO PATIENTS WHO ARE OR HAVE BEEN ENROLLED IN A CHEMICAL DEPENDENCY/SUBSTANCEABUSE PROGRAM, SOME INFORMATION MAY BE OMITTED. This clinical summary was aggregated from multiple sources. Caution should be exercised in using it in the provision of clinical care. This summary normalizes information from multiple sources, and as a consequence, information in this document may materially change the coding, format and clinical context of patient data. In addition, data may be omitted in some cases. CLINICAL DECISIONS SHOULD BE BASED ON THE PRIMARY CLINICAL RECORDS. [facility] [employer] [facility]. provides no warranty or guarantee of the accuracy or completeness of information in this document.
[2023-09-30 15:38] LABS: Absolute Lymphocyte Count 1.87 X10^3/uL (0.83-4.51); Absolute Neutrophil Count 4.5 X10^3/uL (2.0-7.7); Basophil# 0.07 X10^3/uL; Basophil% 0.9 % (0-1); Eosinophil# 0.43 X10^3/uL; Eosinophils% 5.8 % (0-5); Hematocrit 42.2 % (37-47); Hemoglobin 13.6 g/dL (12.0-15.0); Lymphocyte # 1.87 X10^3/ul (0.83-4.51); Lymphocyte % 25.2 % (19-41); Mean Corp Hgb Conc 32.2 g/dL (32-36); Mean Corpuscular Hgb 31.6 pg (27.0-32.0); Mean Corpuscular Volume 97.9 fL (81-99); Mean Platelet Vol. 9.7 fl (6.2-12.0); Monocyte# 0.54 X10^3/uL; Monocyte% 7.3 % (0-10); NRBC Flagged by Analyzer 0 % (0-5); Neutrophil # 4.49 X10^3/uL (2.7-7.7); Neutrophil % 60.5 % (47-70); Platelet Count 243 K/mm3 (150-450); RBC Distribution Width CV 14.3 % (11.6-14.6); RBC Distribution Width SD 51.7 fl (35.1-43.9); Red Blood Count 4.31 M/mm3 (4.2-5.4); White Blood Count 7.4 K/mm3 (4.4-11.0)
[2023-09-30 16:01] LABS: Hemoglobin A1c 8.7 % (3.8-5.6)
[2023-09-30 16:06] LABS: PTHIN 97.1 pg/mL (18.4-80.1)
[2023-09-30 16:08] LABS: ALB/GLOB Ratio 1.2 RATIO (0.9-2.4); AST(SGOT) 19 U/L (15-37); Alanine Aminotransfer ALT/SGPT 31 U/L (13-56); Albumin, Serum 3.7 g/dL (3.2-5.0); Alkaline Phosphatase 79 U/L (45-117); Anion Gap 8 (5-15); BUN 33 mg/dL (7-18); BUN/Creat Ratio 21.6 RATIO (10-20); Calcium,Total 8.9 mg/dL (8.5-10.1); Chloride 110 mmol/L (98-107); Cholesterol 225 mg/dL (200); Creatinine, Serum 1.53 mg/dL (0.55-1.02); EST Glomerular Filtration Rate 35 mL/min (>60); Est Glom Filt Rate - Afr Amer 43 mL/min (>60); Globulin 3.2 g/dL (2.2-4.2); Glucose 171 mg/dL (74-106); High Density Lipoprotein 40 mg/dL; Potassium 4.6 mmol/L (3.5-5.1); Protein, Total 6.9 g/dL (6.4-8.2); Sodium Level 139 mmol/L (136-145); Triglycerides 200 mg/dL; Uric Acid 5.7 mg/dL (2.6-6.0); Very Low Density Lipoprotein 40 mg/dL (5-40)
[2023-09-30 16:09] LABS: Microalbumin,Random Urine 33.1 mg/L (NO RANGE EST.); Microalbumin:Creatinine Ratio 11.4 mg/g CRE (<30 mg/g CRE)
== END | disposition home or self-care (01) ==
LOC: MTLAB 12:33
PROVIDERS: PCP Family Medicine; Referring Provider Family Medicine; Visit Provider Family Medicine
DX: I12.9 Hypertensive chronic kidney disease with stage 1 through stage 4 chronic kidney disease, or unspecified chronic kidney disease (principal); E11.22 Type 2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with diabetic chronic kidney disease; N25.81 Secondary hyperparathyroidism of renal origin; N18.32 Chronic kidney disease, stage 3b; I25.10 Atherosclerotic heart disease of native coronary artery without angina pectoris; M10.9 Gout, unspecified
CPT/HCPCS: 36415; 80053; 80061; 82043; 82570; 83036; 83970; 84550; 85025

== ENCOUNTER 2023-10-27 10:55 | Emergency (ER) | payer MEDICARE, OTHER, SELFPAY ==
[2020-05-13 13:37] VITALS: BMI 56.3
[2023-10-27 10:55] VITALS: RESP 18
[2023-10-27 10:56] VITALS: BP 160/72; PULSE 54; RESP 14; TEMP 36.6; O2SAT 95; BMI 55.6
--- NOTE | 2023-10-27 11:51 | CT_ITS ---
STUDY: CT FACIAL BONES WITHOUT CONTRAST REASON FOR EXAM: Female, 73 years old. Facial injury RADIATION DOSAGE (If Supplied By Facility): CTDIvol = ( 29.38 ) mGy, DLP = ( 628.26 ) mGycm TECHNIQUE: The patient was scanned in a multi detector CT scanner. Sagittal and coronal images were reconstructed. Individualized dose optimization techniques were used for this CT. COMPARISON: None. FINDINGS: Normal soft tissue structures. Normal orbital livingston and orbital contents. Nondisplaced nasal fracture. Normal facial bones. There is no demonstrated fracture. Partial opacification of the left sphenoid sinus. CT/Sinus/Facial Bone IMPRESSION: Partial opacification right sphenoid sinus. Nondisplaced nasal fracture Electronically Signed: Librado Lay MD at 12:30 EST ,
--- NOTE | 2023-10-27 11:51 | CT_ITS ---
STUDY: CT CERVICAL SPINE WITHOUT CONTRAST REASON FOR EXAM: Female, 73 years old. Neck injury RADIATION DOSAGE (If Supplied By Facility): CTDIvol = ( 34.12 ) mGy, DLP = ( 722.08 ) mGycm TECHNIQUE: High resolution transaxial imaging was performed without contrast material. Sagittal and coronal images were reconstructed. Individualized dose optimization techniques were used for this CT. COMPARISON: None FINDINGS: Normal craniovertebral junction. There are degenerative changes of the anterior atlantoaxial articulation. Normal odontoid process. Normal cervical lordosis. Normal vertebral bodies and posterior osseous elements. C2-3: Minimal anterior listhesis of C2 on C3 due to the facet joint osteoarthritis worse on the right side. Uncovertebral arthrosis. Mild right neural foraminal stenosis. C3-4: Marked degree of disc space narrowing. Spondylosis. Uncovertebral arthrosis. Bilateral neural foraminal stenosis. C4-5: Marked degree of disc space narrowing. Spondylosis. Uncovertebral arthrosis. C5-6: Moderate degree of disc space narrowing. Spondylosis. Bilateral neural foraminal stenosis. C6-7: Moderate degree of disc space narrowing. Spondylosis C7-T1: Normal endplates. Normal disc height and morphology. Normal central canal and intervertebral neuroforamina. Calcified bilateral carotid arteries. CT/Spine Cervical without Contras IMPRESSION: Multilevel degenerative changes, as described above. Electronically Signed: Librado Lay MD at 12:36 EST ,
--- NOTE | 2023-10-27 11:51 | CT_ITS ---
STUDY: CT BRAIN WITHOUT CONTRAST REASON FOR EXAM: Female, 73 years old. Head injury RADIATION DOSAGE (If Supplied By Facility): CTDIvol = ( 44.99 ) mGy, DLP = ( 863.60 ) mGycm TECHNIQUE: Transaxial CT imaging of the brain was performed without administration of intravenous contrast material. Individualized dose optimization techniques were used for this CT. COMPARISON: Comparison is made with prior study of January 28, 2020. FINDINGS: Normal soft tissue structures. Normal calvarium. There is mild cerebral atrophy with widening of the extra-axial spaces and ventricular dilatation. There are areas of decreased attenuation within the white matter tracts of the supratentorial brain, consistent with microvascular disease changes. Normal basal ganglia and thalami. Normal brainstem. Normal cerebellum. There is no intracranial hemorrhage. There are no findings of an acute ischemic infarction. Atherosclerotic calcification of the vertebral arteries and cavernous portions of the internal carotid arteries bilaterally. Mucosal thickening of the left sphenoid sinus. CT/Brain/Head without Contrast IMPRESSION: Chronic involutional changes of the brain. Mucosal thickening of the left sphenoid sinus. Electronically Signed: Librado Lay MD at 12:23 EST ,
--- NOTE | 2023-10-27 11:55 | EX.ED.DYSGE1 ---
HPI <HOLLI Avelar - Last Filed: 10/27/23 12:58> History of Present Illness Chief Complaint: Laceration Narrative Narrative: Patient is 73-year-old female with history of obesity, diabetes, hypertension, lipidemia presents to the emergency department after mechanical fall. Patient was sleeping, when she rolled to her right off the bed. Patient struck the right side of her face on the bed stand corner, falling on her right shoulder. Patient denies any LOC however states she was very confused because she just woke up this way. She does have a lack to the right cheek. She states it is significantly painful around the area. Patient does complain of some neck pain. Tetanus vaccination is unknown. PFS <HOLLI Avelar - Last Filed: 10/27/23 12:58> [facility] Medical History Atherosclerotic heart disease of [place] coronary artery without angina pectoris Black tarry stools Cerebrovascular disease CKD (chronic kidney disease) stage 3, GFR 30-59 ml/min Diarrhea Essential hypertension GERD (gastroesophageal reflux disease) Gout History of left heart catheterization (LHC) (~08/05/20) MCI (mild cognitive impairment) Mild congestive heart failure Nausea Obesity Osteoarthritis Presence of stent in coronary artery (~03/28/18) Presence of stent in coronary artery Pure hypercholesterolemia Sleep apnea Type 2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Home Medications allopurinol 100 mg tablet 100 mg PO BID GOUT 03/15/18 [History Last Taken 11/18/19] clopidogrel 75 mg tablet 75 mg PO DAILY HEART HEALTH 09/04/19 [History Last Taken 08/05/20] metoprolol tartrate 25 mg tablet 25 mg PO BID 09/14/19 [Rx Last Taken 08/05/20] lisinopril 20 mg tablet 20 mg PO DAILY 10/13/20 [History Last Taken Unknown] cholecalciferol (vitamin D3) 50 mcg (2,000 unit) capsule 50 mcg PO DAILY 11/12/21 [History Last Taken Unknown] blood sugar diagnostic (True Metrix Glucose Test Strip) #50 ea 03/30/22 [Rx Last Taken Unknown] blood-glucose meter (True Metrix Glucose Meter) #1 ea 03/30/22 [Rx Last Taken Unknown] cetirizine 10 mg tablet (All Day Allergy (cetirizine)) 10 mg PO DAILY PRN postnasal drainage #30 tabs 07/18/22 [Rx Last Taken Unknown] citalopram 40 mg tablet 20 mg PO DAILY 07/29/22 [History Last Taken Unknown] donepezil 5 mg tablet 5 mg PO QAM #90 tabs 11/01/22 [Rx Last Taken Unknown] memantine 10 mg tablet 10 mg PO QAM #90 tabs 11/01/22 [Rx Last Taken Unknown] furosemide 40 mg tablet 20 mg PO DAILY 01/24/23 [History Last Taken Unknown] repaglinide 2 mg tablet 4 mg (2 x 2 mg) PO TID #360 tabs 01/24/23 [Rx Last Taken Unknown] Allergy/AdvReac Type Severity Reaction Status Date / Time naproxen [From Naprosyn] Allergy Severe INTERNAL Verified 10/27/23 10:56 BLEEDING prednisone Allergy Severe COMBINATION Verified 10/27/23 10:56 WITH NAPROXEN CAUSED INTERNAL BLEEDING exenatide [From Byetta] AdvReac Intermediate Unknown Verified 10/27/23 10:56 ezetimibe [From Zetia] AdvReac Intermediate Unknown Verified 10/27/23 10:56 fluticasone [From Flonase] AdvReac Intermediate Headaches Verified 10/27/23 10:56 amoxicillin [From Augmentin] AdvReac Unknown Headache Verified 10/27/23 10:56 clavulanic acid AdvReac Unknown Headache Verified 10/27/23 10:56 [From Augmentin] clorazepate dipotassium AdvReac Unknown Unknown Verified 10/27/23 10:56 [From Tranxene T-Tab] guaifenesin AdvReac Unknown NEEDS Verified 10/27/23 10:56 FOLLOW-UP indomethacin [From Indocin] AdvReac Unknown Unknown Verified 10/27/23 10:56 ketoprofen [From Oruvail] AdvReac Unknown Unknown Verified 10/27/23 10:56 nizatidine [From Axid] AdvReac Unknown Unknown Verified 10/27/23 10:56 ranitidine [From Zantac] AdvReac Unknown Unknown Verified 10/27/23 10:56 rosuvastatin [From Crestor] AdvReac Unknown Unknown Verified 10/27/23 10:56 sertraline [From Zoloft] AdvReac Unknown Unknown Verified 10/27/23 10:56 sulfamethoxazole AdvReac Unknown Unknown Verified 10/27/23 10:56 [From ] trimethoprim [From ] AdvReac Unknown Unknown Verified 10/27/23 10:56 NSAIDS (Non-Steroidal AdvReac Other Verified 10/27/23 10:56 Anti-Inflamma Family History Mother Hypertension CAD (coronary artery disease) Diabetes Anemia Arthritis History of blood clots Myocardial infarction, Onset Age: 70 Heart disease High cholesterol Father Angina pectoris Alzheimer disease Surgical History History of arthroscopy of right shoulder History of carpal tunnel surgery History of cholecystectomy Hx of appendectomy Hx of arthroscopy of right knee Presence of coronary angioplasty implant and graft (~03/28/18) Social History Smoking Status: Never smoker Electronic Cigarette Use: not used second hand exposure: No alcohol intake: current alcohol intake frequency: holidays/special occasions only details: non drinker substance use type: does not use caffeine: Yes Type: coffee Number of servings: 3 frequency: does not exercise azar/evangelical: Buddhism seatbelt use: never ROS <HOLLI Avelar - Last Filed: 10/27/23 12:58> ROS ED ROS Narrative Constitutional: Negative for fever, chills, weight loss, weakness Eyes: Negative for vision loss, vision change, double vision ENT: Negative for any sore throat, ear pain, congestion Cardiovascular: Negative for any chest pain, tightness, palpitations Respiratory: Negative for any cough, sputum production, hemoptysis, dyspnea, dyspnea on exertion, orthopnea Gastrointestinal: Negative for any abdominal pain, nausea, vomiting, diarrhea, constipation, blood in stool, blood in vomit : Negative for any urinary frequency, dysuria, retention, blood in urine Muscle skeletal: Negative for any myalgias, arthralgias, back pain. Positive for neck and shoulder pain Neurological: Negative for any syncope, paresthesias, dizziness. Positive for headache, facial pain Skin: Negative for any rashes, lumps, itching, abrasions. Laceration right cheek Psychiatric: Negative for any depression, anxiety, stress, suicidal ideation, homicidal ideation Hematologic: Negative for any easy bruising, excessive bruising, easy bleeding Allergies: Negative for any eczema, hives, rash EXAM <HOLLI Avelar - Last Filed: 10/27/23 12:58> Physical Exam Narrative Exam Narrative: Vital signs reviewed. HEET: Head normocephalic atraumatic, TMs clear bilaterally. Posterior pharynx is clear, moist mucous membranes. Nares clear bilaterally. Pupils are equal round reactive to light. Negative for any hemotympanum or septal hematoma. Patient does have a 2 cm laceration to the right cheek, the middle of the laceration does appear to be some sort of a puncture. Pain to the right lower orbital. Neck: Supple with no lymphadenopathy or tenderness. No signs of meningismus. Patient did have some pain, no mid spinal however states that her neck feels tight. Cardiac: Regular rate and rhythm no murmurs gallops or rubs, equal peripheral pulses bilaterally. Respiratory: Lungs clear to auscultation bilaterally. No chest tenderness. Abdomen: Soft, nontender, nondistended. No abdominal bruit or pulsatile masses. No hepatosplenomegaly Extremities: No peripheral edema, no signs of gross trauma or deformity. Active full range of motion of all extremities. Patient is able to move her right shoulder however has significant pain. The remainder of the right upper extremities unremarkable. Neuro: Cranial nerves II through XII intact, no focal neurological deficits. No neurological focal deficits. Skin: Clean dry and intact with no rash, purpura, petechiae, vesicles or pustules. Backs/flank: No CVA tenderness, no midline spinal tenderness, no deformity. Psych: Normal mood and affect. No SI, HI or acute psychosis. Const Vital Signs: 10/27/23 10:56 10/27/23 10:55 10/27/23 13:24 Temperature 98 F Temperature Source Temporal Pulse Rate 54 L 62 Respiratory Rate 14 18 16 Blood Pressure 160/72 H 151/81 H Blood Pressure Mean 101 104 Pulse Ox 95 99 Oxygen Delivery Method Room Air Positive well nourished, well developed and obese General Appearance ED: well developed Nutritional Appearance: obese <Dr. Joe Casillas DO - Last Filed: 10/27/23 16:13> Physical Exam Const Vital Signs: 10/27/23 10:56 10/27/23 10:55 10/27/23 13:24 Temperature 98 F Temperature Source Temporal Pulse Rate 54 L 62 Respiratory Rate 14 18 16 Blood Pressure 160/72 H 151/81 H Blood Pressure Mean 101 104 Pulse Ox 95 99 Oxygen Delivery Method Room Air [facility] <Franklyn Robin NODULIZER-C - Last Filed: 10/27/23 12:58> [facility] Radiography Diagnostic Testing: Clinical Impression(s) from Imaging Studies Brain CT 10/27/23 11:51 IMPRESSION: Chronic involutional changes of the brain. Mucosal thickening of the left sphenoid sinus. Electronically Signed: Librado Lay MD at 12:23 EST , Cervical Spine CT 10/27/23 11:51 IMPRESSION: Multilevel degenerative changes, as described above. Electronically Signed: Librado Lay MD at 12:36 EST , Facial/Sinus 10/27/23 11:51 IMPRESSION: Partial opacification right sphenoid sinus. Nondisplaced nasal fracture Electronically Signed: Librado Lay MD at 12:30 EST , Shoulder X-Ray 10/27/23 12:10 IMPRESSION: Status post right reverse shoulder replacement. A smooth alignment. No acute fracture or dislocation is seen. Osteoarthritis of the right acromion clavicular joint. Electronically Signed: Librado Lay MD at 12:38 EST , Treatment and Re-Evaluation :: Patient appears to be in no obvious distress, vital signs are stable. Patient alert and orient x 4. Presents to the emerged part with right facial injury following a fall out of bed. Differential diagnosis includes orbital bone fracture, contusion, closed head injury, cervical injury, shoulder strain. Patient will receive CT scans of the brain, facial bones, cervical spine. Patient will see x-rays of the right shoulder. Patient will be updated on her tetanus vaccination today. Patient's laceration which is 2 cm to the right cheek will need to be sutured. There is an area of the laceration that is more of a puncture type area. I will anesthetize the area and irrigated. Patient's tetanus up-to-date. Patient's CT scan the brain showed chronic involutional changes, no acute process. Cervical spine was negative for any fracture. Shoulder x-ray showed status post right reverse shoulder replacement, no acute fracture or dislocation. Patient CT scan of the face shows partial opacification of the right sphenoid sinus, nondisplaced nasal bone fracture. Patient's 2 cm laceration to the right cheek was anesthetized, irrigated, I did place 6 simple interrupted sutures of 6-0 Ethilon. Edges approximated nicely. Patient will these removed in 5 to 7 days. Sterile gloves, sterile drapes were used. All questions answered, patient instructed to return for any worsening symptoms. Patient will continue use Tylenol, was given concussion education. Patient was also given wound care education. Was given strict return precaution. Stable for discharge. <Dr. Joe Casillas, DO - Last Filed: 10/27/23 16:13> [facility] Narrative Medical decision making narrative: Patient appears to be in no obvious distress, vital signs are stable. Patient alert and orient x 4. Presents to the [facility] part with right facial injury following a fall out of bed. Differential diagnosis includes orbital bone fracture, contusion, closed head injury, cervical injury, shoulder strain. Patient will receive CT scans of the brain, facial bones, cervical spine. Patient will see x-rays of the right shoulder. Patient will be updated on her tetanus vaccination today. Patient's laceration which is 2 cm to the right cheek will need to be sutured. There is an area of the laceration that is more of a puncture type area. I will anesthetize the area and irrigated. Patient's tetanus up-to-date. Patient's CT scan the brain showed chronic involutional changes, no acute process. Cervical spine was negative for any fracture. Shoulder x-ray showed status post right reverse shoulder replacement, no acute fracture or dislocation. Patient CT scan of the face shows partial opacification of the right sphenoid sinus, nondisplaced nasal bone fracture. Patient's 2 cm laceration to the right cheek was anesthetized, irrigated, I did place 6 simple interrupted sutures of 6-0 Ethilon. Edges approximated nicely. Patient will these removed in 5 to 7 days. Sterile gloves, sterile drapes were used. All questions answered, patient instructed to return for any worsening symptoms. Patient will continue use Tylenol, was given concussion education. Patient was also given wound care education. Was given strict return precaution. Stable for discharge. Patient presenting for evaluation of pain after mechanical fall. She had CT brain, facial bones, cervical spine which were all negative with exception of a nasal bone fracture which is nondisplaced.. X-ray of the right shoulder my interpretation is no acute fracture or subluxation. Laceration was repaired by the nurse practitioner. Please see procedure note. Patient tolerated this well. Wound care and return precautions discussed. Radiography Diagnostic Testing: Clinical Impression(s) from Imaging Studies Brain CT 10/27/23 11:51 IMPRESSION: Chronic involutional changes of the brain. Mucosal thickening of the left sphenoid sinus. Electronically Signed: Librado Lay MD at 12:23 EST , Cervical Spine CT 10/27/23 11:51 IMPRESSION: Multilevel degenerative changes, as described above. Electronically Signed: Librado Lay MD at 12:36 EST , Facial/Sinus 10/27/23 11:51 IMPRESSION: Partial opacification right sphenoid sinus. Nondisplaced nasal fracture Electronically Signed: Librado Lay MD at 12:30 EST , Shoulder X-Ray 10/27/23 12:10 IMPRESSION: Status post right reverse shoulder replacement. A smooth alignment. No acute fracture or dislocation is seen. Osteoarthritis of the right acromion clavicular joint. Electronically Signed: Librado Lay MD at 12:38 EST , Discharge Plan Triage Chief Complaint: Laceration ED Midlevel Provider: Franklyn Robin ED Provider: Joe Casillas Dx/Rx/DC Orders Clinical Impression: Closed fracture nasal bone, Concussion, Face lacerations, Fall, Contusion of right shoulder Instructions: Concussion Dc, ED Facial Fracture, ED Head Injury (Adult), ED Laceration, All Closures, ED Laceration Minimize Scars Prescriptions: No Action lisinopril 20 mg tablet 20 mg PO DAILY citalopram 40 mg tablet 20 mg PO DAILY cholecalciferol (vitamin D3) 50 mcg (2,000 unit) capsule 50 mcg PO DAILY donepezil 5 mg tablet 5 mg PO QAM Qty: 90 2RF memantine 10 mg tablet 10 mg PO QAM Qty: 90 2RF repaglinide 2 mg tablet 4 mg PO TID Qty: 360 2RF Rx Instructions: administer within 30 minutes of a meal or snack allopurinol 100 mg tablet 100 mg PO BID clopidogrel 75 MG tablet 75 mg PO DAILY metoprolol tartrate 25 MG tablet 25 mg PO BID 0RF cetirizine [All Day Allergy (cetirizine)] 10 mg tablet 10 mg PO DAILY PRN (Reason: postnasal drainage) Qty: 30 0RF (DME) blood-glucose meter [True Metrix Glucose Meter] Misc See Rx Instructions .Route Qty: 1 0RF Rx Instructions: As directed (DME) True Metrix Glucose Test Strip Strip See Rx Instructions .Route Qty: 50 8RF Rx Instructions: daily furosemide 40 mg tablet 20 mg PO DAILY Primary Care Provider: Sachin Almanza Referrals: Sachin Almanza DO [Primary Care Provider] - Activity Restrictions/Additional Instructions: You have 6 sutures in the right side of your cheek. These need to be removed in 5 to 7 days. Ensure that you ice. Use Tylenol, perform gentle stretching, ice and heat. You will be sore in the next 24 to 48 hours. Return for any worsening headaches, nausea or vomiting. Disposition Disposition: Home, Self Care Discharge Date/Time: 10/27/23 13:25
[2023-10-27] MEDS: HYDROcodone Bitartrate/Apap 5/325 Tablet PO (11:57)
--- NOTE | 2023-10-27 12:10 | RAD_ITS ---
STUDY: X-RAY - RIGHT SHOULDER REASON FOR EXAM: Female, 73 years old. History of fall. TECHNIQUE: 3 view(s) of the shoulder. COMPARISON: Comparison is made with prior study dated January 28, 2020. FINDINGS: The patient is status post right reverse shoulder replacement. No evidence of fracture or dislocation. There is hypertrophic osteoarthrosis of the acromioclavicular joint with inferior osseous spur formation. Normal acromion. Normal humeral head and visualized proximal humerus. The soft tissue structures are unremarkable. Normal visualized pulmonary apex. RAD/Shoulder min 2 Views IMPRESSION: Status post right reverse shoulder replacement. A smooth alignment. No acute fracture or dislocation is seen. Osteoarthritis of the right acromion clavicular joint. Electronically Signed: Librado Lay MD at 12:38 EST ,
[2023-10-27] MEDS: Diphth,Pertuss(Acell),Tet Vac 0.5 ML Vial IM (13:08)
[2023-10-27 13:24] VITALS: BP 151/81; PULSE 62; RESP 16; O2SAT 99
== END 2023-10-27 13:25 | disposition home or self-care (01) ==
PROVIDERS: Emergency Provider Student in an Organized Health Care Education/Training Program; PCP Family Medicine; Visit Provider Student in an Organized Health Care Education/Training Program
DX: S02.2XXA Fracture of nasal bones, initial encounter for closed fracture (principal); I13.0 Hypertensive heart and chronic kidney disease with heart failure and stage 1 through stage 4 chronic kidney disease, or unspecified chronic kidney disease; I50.9 Heart failure, unspecified; E11.22 Type 2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with diabetic chronic kidney disease; S06.0X0A Concussion without loss of consciousness, initial encounter; S01.81XA Laceration without foreign body of other part of head, initial encounter; S40.011A Contusion of right shoulder, initial encounter; W06.XXXA Fall from bed, initial encounter; Y93.84 Activity, sleeping; M54.2 Cervicalgia; E66.9 Obesity, unspecified; Z79.02 Long term (current) use of antithrombotics/antiplatelets; Z79.899 Other long term (current) drug therapy; Z95.5 Presence of coronary angioplasty implant and graft; Z96.611 Presence of right artificial shoulder joint
CPT/HCPCS: 12011; 70450; 70486; 72125; 73030; 90715; 99282

== ENCOUNTER → 2023-11-07 | Outpatient (CLI) | payer MEDICARE, OTHER, SELFPAY ==
[2020-05-13 13:37] VITALS: BMI 56.3
== END | disposition home or self-care (01) ==
LOC: LABSPEC 16:49
PROVIDERS: PCP Family Medicine; Visit Provider Family Medicine
DX: L02.413 Cutaneous abscess of right upper limb (principal)
CPT/HCPCS: 87070; 87075; 87077; 87186; 87205

== ENCOUNTER → 2024-04-17 | Outpatient (CLI) | payer MEDICARE, OTHER, SELFPAY ==
[2020-05-13 13:37] VITALS: BMI 56.3
[2024-04-17 13:05] LABS: Anion Gap 9 (5-15); BUN 30 mg/dL (7-18); BUN/Creat Ratio 22.6 RATIO (10-20); Calcium,Total 9.3 mg/dL (8.5-10.1); Chloride 104 mmol/L (98-107); Creatinine, Serum 1.33 mg/dL (0.55-1.02); EST Glomerular Filtration Rate 41 mL/min (>60); Est Glom Filt Rate - Afr Amer 50 mL/min (>60); Glucose 173 mg/dL (74-106); Sodium Level 136 mmol/L (136-145)
== END | disposition home or self-care (01) ==
LOC: BFHLAB 10:45
PROVIDERS: PCP Family Medicine; Referring Provider Family Medicine; Visit Provider Family Medicine
DX: N18.32 Chronic kidney disease, stage 3b (principal)
CPT/HCPCS: 36415; 80048

== ENCOUNTER → 2024-05-28 | Outpatient (CLI) | payer MEDICARE, OTHER, SELFPAY ==
[2020-05-13 13:37] VITALS: BMI 56.3
[2024-05-28 15:54] LABS: BUN 29 mg/dL (7-18); BUN/Creat Ratio 17.7 RATIO (10-20); Calcium,Total 9.8 mg/dL (8.5-10.1); Chloride 102 mmol/L (98-107); Creatinine, Serum 1.64 mg/dL (0.55-1.02); EST Glomerular Filtration Rate 33 mL/min (>60); Est Glom Filt Rate - Afr Amer 39 mL/min (>60); Glucose 183 mg/dL (74-106); Potassium 4.9 mmol/L (3.5-5.1); Sodium Level 135 mmol/L (136-145)
[2024-05-28 16:14] LABS: Microalbumin,Random Urine 72.4 mg/L (NO RANGE EST.); Microalbumin:Creatinine Ratio 34.2 mg/g CRE (<30 mg/g CRE)
== END | disposition home or self-care (01) ==
LOC: MTLAB 13:06
PROVIDERS: PCP Family Medicine; Referring Provider Internal Medicine Nephrology; Visit Provider Internal Medicine Nephrology
DX: E11.22 Type 2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with diabetic chronic kidney disease (principal); N18.32 Chronic kidney disease, stage 3b
CPT/HCPCS: 36415; 80069; 82043; 82570; 85027

== ENCOUNTER → 2024-05-29 | Outpatient (CLI) | payer MEDICARE, OTHER, SELFPAY ==
[2020-05-13 13:37] VITALS: BMI 56.3
[2024-05-29 11:12] LABS: Hematocrit 43.3 % (37-47); Hemoglobin 13.9 g/dL (12.0-15.0); Mean Corp Hgb Conc 32.1 g/dL (32-36); Mean Corpuscular Hgb 31.1 pg (27.0-32.0); Mean Corpuscular Volume 96.9 fL (81-99); Mean Platelet Vol. 9.4 fl (6.2-12.0); Platelet Count 247 K/mm3 (150-450); RBC Distribution Width SD 50.4 fl (35.1-43.9); Red Blood Count 4.47 M/mm3 (4.2-5.4); White Blood Count 9.1 K/mm3 (4.4-11.0)
== END | disposition home or self-care (01) ==
LOC: POLAB3 10:40
PROVIDERS: PCP Family Medicine; Visit Provider Internal Medicine Nephrology
DX: E11.22 Type 2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with diabetic chronic kidney disease (principal); N18.32 Chronic kidney disease, stage 3b
CPT/HCPCS: 85027

== ENCOUNTER → 2024-09-04 | Outpatient (CLI) | payer MEDICARE, OTHER, SELFPAY ==
[2020-05-13 13:37] VITALS: BMI 56.3
[2024-09-04 12:43] LABS: Anion Gap 9 (5-15); BUN 32 mg/dL (7-18); BUN/Creat Ratio 20.1 RATIO (10-20); Calcium,Total 9.2 mg/dL (8.5-10.1); Chloride 106 mmol/L (98-107); Creatinine, Serum 1.59 mg/dL (0.55-1.02); EST Glomerular Filtration Rate 34 mL/min (>60); Est Glom Filt Rate - Afr Amer 41 mL/min (>60); Glucose 218 mg/dL (74-106); Potassium 4.3 mmol/L (3.5-5.1); Sodium Level 135 mmol/L (136-145)
== END | disposition home or self-care (01) ==
LOC: MTLAB 10:20
PROVIDERS: PCP Family Medicine; Referring Provider Internal Medicine Nephrology; Visit Provider Internal Medicine Nephrology
DX: N17.9 Acute kidney failure, unspecified (principal)
CPT/HCPCS: 36415; 80048

== ENCOUNTER → 2025-01-01 | Outpatient (CLI) | payer MEDICARE, OTHER, SELFPAY ==
[2020-05-13 13:37] VITALS: BMI 56.3
[2025-01-01 13:07] LABS: Albumin, Serum 4.2 g/dL (3.4-4.8); Anion Gap 15 (5-15); BUN 32 mg/dL (4-19); BUN/Creat Ratio 19.4 RATIO (10-20); Calcium,Total 9.8 mg/dL (7.6-11.0); Carbon Dioxide 21.2 mmol/L (21.0-32.0); Chloride 100 mmol/L (98-108); Creatinine, Serum 1.64 mg/dL (0.70-1.20); EST Glomerular Filtration Rate 32 (>60); Glucose 157 mg/dL (70-99); Phosphorus 3.4 mg/dL (2.7-4.5); Potassium 4.3 mmol/L (3.3-5.1); Sodium Level 137 mmol/L (133-145)
== END | disposition home or self-care (01) ==
LOC: MTLAB 11:07
PROVIDERS: PCP Family Medicine; Referring Provider Internal Medicine Nephrology; Visit Provider Internal Medicine Nephrology
DX: E11.22 Type 2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with diabetic chronic kidney disease (principal); N18.32 Chronic kidney disease, stage 3b
CPT/HCPCS: 36415; 80069; 82043; 82570

== ENCOUNTER → 2025-08-19 | Outpatient (CLI) | payer MEDICARE, OTHER, SELFPAY ==
[2020-05-13 13:37] VITALS: BMI 56.3
[2025-08-19 12:21] LABS: Hematocrit 38.3 % (37-47); Hemoglobin 12.9 g/dL (12.0-15.0); Mean Corp Hgb Conc 33.7 g/dL (32-36); Mean Corpuscular Volume 94.3 fL (81-99); Mean Platelet Vol. 9.9 fl (6.2-12.0); Platelet Count 197 K/mm3 (150-450); RBC Distribution Width CV 14.2 % (11.6-14.6); RBC Distribution Width SD 49.1 fl (35.1-43.9); Red Blood Count 4.06 M/mm3 (4.2-5.4); White Blood Count 7.1 K/mm3 (4.4-11.0)
[2025-08-19 13:21] LABS: PTHIN 43 pg/mL (11-61)
[2025-08-19 13:28] LABS: Albumin, Serum 4.1 g/dL (3.4-4.8); Anion Gap 14 (5-15); BUN 30 mg/dL (4-19); BUN/Creat Ratio 22.3 RATIO (10-20); Calcium,Total 9.1 mg/dL (7.6-11.0); Carbon Dioxide 19.8 mmol/L (21.0-32.0); Chloride 106 mmol/L (98-108); Glucose 166 mg/dL (70-99); Potassium 3.4 mmol/L (3.3-5.1)
== END | disposition home or self-care (01) ==
LOC: MTLAB 10:11
PROVIDERS: PCP Family Medicine; Referring Provider Internal Medicine Nephrology; Visit Provider Internal Medicine Nephrology
DX: N18.32 Chronic kidney disease, stage 3b (principal)
CPT/HCPCS: 36415; 80069; 83970; 85027